=== PATIENT | female | born 1935 | race Caucasian/White ===

== ENCOUNTER 2017-04-02 13:36 | Emergency (ER) | payer BC, MEDICARE ==
[~2017-04-02] VITALS: Ht 160 cm; Wt 80.0 kg
[~2017-04-02 13:36] MED LIST: 1-ME1LIQ OR; ASPI325T; AVALIDE; BUSP15TA PO; CALTTAB PO; CART240C4 PO; CLON-352 PO; CLON0.2T PO; CLOP75; GLUC500C4 PO; GLUCTAB OR; LIPI40TA PO; LORA-392; NEXI40CA; TAB-TAB PO; TOPR50TA; [UNRECOGNIZED DRUG - OTHER] PO; [UNRECOGNIZED DRUG - OTHER] PO
[2017-04-02 13:52] VITALS: BP 178/68; PULSE 72; RESP 16; TEMP 98.9; O2SAT 97
--- NOTE | 2017-04-02 14:04 | PD ---
HPI Chief Complaint: Injury Time Seen by Provider: 14:00 Travel History International Travel<30 days: No Contact w/Intl Traveler<30days: No Traveled to known affect area: No History of Present Illness HPI 81-year-old female presents to the emergency room for evaluation of left foot pain and swelling after injury last night. Patient states she slipped on her mat and twisted her foot. She heard a pop and felt immediate pain. She did not fall but could not bear weight without extreme pain. She hobbled inside and went to bed to see if it would improve in the morning and because she did not want to drive at night. Patient did not take anything for her symptoms because her pain is not severe and her doctor recommended she only take pain medication if her pain is unbearable. She reports chronic bilateral lower extremity edema but states left seems worse than right. Patient cannot localize her pain and reports that it is deep within her foot. Worse with ambulation and range of motion. It is 2/10, constant, throbbing, aching. Denies paresthesias. PFSH Past Medical History Hx Anticoagulant Therapy: Yes (325 ASA DAILY) Autoimmune Disease: No Blood Disorders: No Heart Rhythm Problems: No Cancer: No Cardiovascular Problems: Yes (UT, STENT, HTN, CHOL) High Cholesterol: No Chemotherapy: No Chest Pain: Yes Congestive Heart Failure: No Cerebrovascular Accident: No Coronary Artery Disease: Yes (HEART STENTS) Diabetes: Yes Patient Takes Glucophage: No Diminished Hearing: No Endocrine: No Gastrointestinal Disorders: Yes GERD: Yes Glaucoma: No Genitourinary: No Headaches: No Hepatitis: No Hiatal Hernia: No Hypertension: Yes Immune Disorder: No Kidney Stones: No Musculoskeletal: Yes Neurologic: No Psychiatric: No Reproductive: No Migraines: No Myocardial Infarction: No Radiation Therapy: No Renal Failure: No Seizures: No Thyroid Disease: No Ulcer: No Past Surgical History Abdominal Surgery: Yes (CHOLECYSTECTOMY 1998) AICD: No Appendectomy: No Arteriovenous Shunt: No Body Medical Devices: CORDIS CYPHER CORONARY STENTS Cardiac Surgery: Yes (CARDIAC STENTS.. CORDIS CYPHER CORONARY STENTS 2003) Cholecystectomy: Yes Coronary Stent: Yes Ear Surgery: No Endocrine Surgery: No Eye Surgery: No Genitourinary Surgery: No Gynecologic Surgery: Yes (HYSTERECTOMY AT 29 YRS OLD) Hysterectomy: Yes Insulin Pump: No Joint Replacement: No Oral Surgery: No Pacemaker: No Thoracic Surgery: No Other Surgery: Yes (CARDIAC STENTS,CHOLECYSTECTOMY,HYSTERECTOMY,TONSILLECTOMY) Social History Alcohol Use: No Tobacco Use: No Substance Use: No Allergies-Medications (Allergen,Severity, Reaction): Coded Allergies: Zocor (Verified Allergy, Severe, ARMS SWELL, 04/02/17) Reported Meds & Prescriptions Reported Meds & Active Scripts Active Walker/Adult/Folding (Device) 1 Mis Mis 1 Ea .ROUTE DIRECTED Reported Glucosamine-Chondroitin 500-400 Mg Tab 1 Tab PO DAILY Multiple Vitamin 1 Tab 1 Tab PO DAILY Calcium 600 with Vitamin D (Calcium Carbonate-Cholecalciferol) 600-400 mg-Unit Tab 1 Tab PO DAILY Aspirin 325 Mg Tab 325 Mg PO DAILY Cranberry Urinary Comfort (Vitamins C & E) 1 Cap 1 Cap PO DAILY [place]-3 Fish Oil/Vitamin (Fish Oil-Cholecalciferol) 1,000-1,000 Mg Cap 3 Cap PO BID Esomeprazole DR 40 Mg Capdr 40 Mg PO HS Lorazepam 0.5 Mg Tab 0.5 Mg PO BID Amlodipine (Amlodipine Besylate) 5 Mg Tab 5 Mg PO BID Irbesartan-Hydrochlorothiazide 300-12.5 Mg Tab 1 Tab PO DAILY Metoprolol Tartrate 50 Mg Tab 50 Mg PO HS Atorvastatin (Atorvastatin Calcium) 20 Mg Tab 20 Mg PO EVERY OTHER DAY Metformin (Metformin HCl) 500 Mg Tab 750 Mg PO BIDPC With meals Diltiazem CD 24 HR 240 Mg Caper 240 Mg PO DAILY Buspirone (Buspirone HCl) 30 Mg Tab 30 Mg PO BID Hydrochlorothiazide 12.5 Mg Tab 12.5 Mg PO DAILY Hydralazine HCl 25 Mg Tablet 10 Mg PO TID Review of Systems Except as stated in HPI: all other systems reviewed are Neg Physical Exam Narrative GENERAL: Well-nourished, well-developed female in no acute distress. Afebrile. Ambulatory. SKIN: Focused skin assessment warm/dry. No erythema or ecchymosis. HEAD: Normocephalic. EYES: No scleral icterus. No injection or drainage. NECK: Supple, trachea midline. No JVD or lymphadenopathy. CARDIOVASCULAR: Regular rate and rhythm without murmurs, gallops, or rubs. RESPIRATORY: Breath sounds equal bilaterally. No accessory muscle use. EXTREMITY: Left foot essentially nontender to palpation. Full range of motion in all joints. Bilateral pitting edema, left worse than right. 2+ dorsalis pedis pulse on the left. Less than 2 second capillary refill distally. Data Data Last Documented VS Vital Signs Date Time Temp Pulse Resp B/P Pulse Ox O2 Delivery O2 Flow Rate FiO2 04/02/17 13:52 98.9 72 16 178/68 97 Orders Foot, Complete ([id number]) (04/02/17 ) Splint Or Brace Apply/Monitor (04/02/17 14:59) Fiberglass Short Leg Splint Ad (04/02/17 ) [facility] Medical Decision Making Medical Screen Exam Complete: Yes Emergency Medical Condition: Yes Medical Record Reviewed: Yes Differential Diagnosis Sprain, strain, contusion, fracture Narrative Course 81-year-old female presents to the emergency room for evaluation of left foot pain and increased swelling after injuring it last night. Patient states she stepped wrong and twisted her foot hearing a loud pop and feeling immediate pain. She denies falling. Denies any other injuries. States swelling seemed to worsen overnight. Physical exam reveals bilateral pitting edema, left worse than right. Left lower extremity is neurovascularly intact with 2+ dorsalis pedis pulse. Patient has full range of motion. No specific bony tenderness to palpation. X-ray shows possible navicular bone fracture. There is no ecchymosis. Patient was treated conservatively with a posterior short leg splint and told to follow-up with the sealer sander or primary care physician within one week. She was told to take Tylenol for pain and discharged with prescription for walker. Told to return for worsening symptoms. She understands and agrees to plan. Diagnosis Primary Impression: Left navicular fracture of foot Qualified Code: S92.255A - Closed nondisplaced fracture of navicular bone of left foot, initial encounter Referrals: [facility] [employer] Primary Care Physician Patient Instructions: Foot Fracture in Adults (ED), General Instructions Additional Instructions: Rest and drink plenty of fluids. Keep foot splinted and elevated. Do not bear weight. Use walker. Take Tylenol as directed, as needed for pain. Apply ice to the affected area for 20 minutes at a time, as needed for pain and swelling. Follow-up with a sealer sander. Return to the emergency room for worsening symptoms. Med/Other Pt SpecificInfo: Prescription(s) given Scripts Walker/Adult/Folding 1 Mis Mis #1 EA .ROUTE DIRECTED Ref 0 Prov:Kocisko,Bertram J. MD 04/02/17 Disposition: 01 DISCHARGE HOME Condition: Ramya Vásquez Apr 02, 2017 14:04
[2017-04-02] MEDS ORDERED: HYDR12.56 PO (14:05)
[2017-04-02] MEDS ORDERED: AMLO5TAB2 PO (14:05)
[2017-04-02] MEDS ORDERED: ESOM1CAP16 PO (14:05)
[2017-04-02] MEDS ORDERED: CRANCAP2 PO (14:05)
[2017-04-02] MEDS ORDERED: MULTTAB67 PO (14:05)
[2017-04-02] MEDS ORDERED: HYDR-3799 PO (14:05)
[2017-04-02] MEDS ORDERED: BUSP30TA PO (14:05)
[2017-04-02] MEDS ORDERED: METO50TA PO (14:05)
[2017-04-02] MEDS ORDERED: CALC1TAB87 PO (14:05)
[2017-04-02] MEDS ORDERED: OMEGCAP PO (14:05)
[2017-04-02] MEDS ORDERED: ATOR20TA15 PO (14:05)
[2017-04-02] MEDS ORDERED: LORA-373 PO (14:05)
[2017-04-02] MEDS ORDERED: DILT-64 PO (14:05)
[2017-04-02] MEDS ORDERED: IRBE300T13 PO (14:05)
[2017-04-02] MEDS ORDERED: METF500T PO (14:05)
[2017-04-02] MEDS ORDERED: GLUC500T4 PO (14:05)
[2017-04-02] MEDS ORDERED: ASPI325T PO (14:05)
--- NOTE | 2017-04-02 14:49 | RADHPO ---
EXAM DATE/TIME: 04/02/2017 14:06 [facility] COMPARISON: No previous studies available for comparison. INDICATIONS : Left dorsal foot pain & swelling post trip/twist last night. MEDICAL HISTORY : Myocardial infarction. Hypercholesterolemia. Hypertension. GERD. Diabetic. SURGICAL HISTORY : Tonsillectomy. Hysterectomy. Cholecystectomy. Cardiac stent. ENCOUNTER: Initial ACUITY: 2 days PAIN SCORE: 7/10 LOCATION: Left dorsal FINDINGS: There appears to be subtle lucency at the medial aspect of the navicular bone concerning for a subtle fracture. No other potential fracture is seen. The bones and joints appear grossly normally aligne d. There is a calcaneal spur at the plantar aponeurosis attachment site. There is mild hypertrophic change at the dorsal aspect of the mid foot. CONCLUSION: Subtle lucency at the medial aspect of the navicular bone concerning for a possible fracture. David Dong MD on April 02, 2017 at 14:38 Board Certified Radiologist. This report was verified electronically.
[2017-04-02] MEDS ORDERED: WALKER/ADULT/FO1 MIS (15:38)
== END 2017-04-02 15:55 | disposition home or self-care (01) ==
LOC: PHED 13:36
DX: S92.255A Nondisplaced fracture of navicular [scaphoid] of left foot, initial encounter for closed fracture (principal); Z79.82 Long term (current) use of aspirin; I25.2 Old myocardial infarction; Z95.5 Presence of coronary angioplasty implant and graft; I10 Essential (primary) hypertension; E11.9 Type 2 diabetes mellitus without complications
CPT/HCPCS: 29515; 73630

== ENCOUNTER 2017-05-16 21:59 | Inpatient (IN) | payer MEDICARE ==
[~2017-05-16] VITALS: Ht 160 cm; Wt 78.9 kg
[~2017-05-16 21:59] MED LIST changes: -1-ME1LIQ OR; +AMLO5TAB2 PO; -ASPI325T; +ASPI325T PO; +ATOR20TA15 PO; -AVALIDE; -BUSP15TA PO; +BUSP30TA PO; +CALC1TAB87 PO; -CALTTAB PO; -CART240C4 PO; -CLON-352 PO; -CLON0.2T PO; -CLOP75; +CRANCAP2 PO; +DILT-64 PO; +ESOM1CAP16 PO; -GLUC500C4 PO; +GLUC500T4 PO; -GLUCTAB OR; +HYDR-3799 PO; +HYDR12.56 PO; +IRBE300T13 PO; -LIPI40TA PO; +LORA-373 PO; -LORA-392; +METF500T PO; +METO50TA PO; +MULTTAB67 PO; -NEXI40CA; +OMEGCAP PO; -TAB-TAB PO; -TOPR50TA; +WALKER/ADULT/FO1 MIS; -[UNRECOGNIZED DRUG - OTHER] PO; -[UNRECOGNIZED DRUG - OTHER] PO
[2017-05-16 22:02] VITALS: BP 201/83; PULSE 58; RESP 18; TEMP 101.5; O2SAT 90
[2017-05-16] MEDS ORDERED: CLON0.1T PO (22:20)
[2017-05-16] MEDS ORDERED: RESP: ALBUTEROL 2.5 MG/3 ML NEB (SCH) INH ONE (22:45)
[2017-05-16] MEDS ORDERED: SODIUM CHLORIDE 0.9% FLUSH 10 ML FLUSH IVF PRN (22:45)
[2017-05-16 22:48] VITALS: RESP 20; O2SAT 95
[2017-05-16 23:14] LABS: AUTOMATED NEUTROPHIL # 8.2 TH/MM3 (1.8-7.7); BASOPHIL # 0.1 TH/MM3 (0-0.2); BASOPHIL % 1.3 % (0.0-2.0); EOSINOPHIL # 0.1 TH/MM3 (0-0.4); EOSINOPHIL % 0.6 % (0.0-4.0); HEMATOCRIT 31.7 % (35.0-46.0); LYMPH % 8.7 % (9.0-44.0); LYMPHOCYTE # 0.9 TH/MM3 (1.0-4.8); MEAN CELL VOLUME 85.3 FL (80.0-100.0); MEAN CORPUSCULAR HGB CONC 32.8 % (32.0-36.0); MONO % 5.5 % (0.0-8.0); NEUT % 83.9 % (16.0-70.0); PLATELET COUNT 191 TH/MM3 (150-450); RED BLOOD COUNT 3.71 MIL/MM3 (4.00-5.30); RED CELL DISTRIBUTION WIDTH 16.2 % (11.6-17.2); WHITE BLOOD COUNT 9.7 TH/MM3 (4.0-11.0)
--- NOTE | 2017-05-16 23:14 | PD ---
HPI Chief Complaint: Respiratory Symptoms Time Seen by Provider: 22:15 Travel History International Travel<30 days: No Contact w/Intl Traveler<30days: No Traveled to known affect area: No History of Present Illness HPI 81 yo F with 1 days of sob, productive cough and subjective fever. + Bilateral shoulder pain. Chest heaviness reported. No n/v/d. No sick contacts. + PNA shot this year. + [place] and exertional CP. + Hx CAD, DM, HTN, HLD and family hx CAD. Location cardiopulmonary. Severity moderate. PFSH Past Medical History Hx Anticoagulant Therapy: Yes (325 ASA DAILY) Autoimmune Disease: No Blood Disorders: No Heart Rhythm Problems: No Cancer: No Cardiovascular Problems: Yes (AR, STENT, HTN, CHOL) High Cholesterol: No Chemotherapy: No Chest Pain: Yes Congestive Heart Failure: No Cerebrovascular Accident: No Coronary Artery Disease: Yes (HEART STENTS) Diabetes: Yes Patient Takes Glucophage: Yes Diminished Hearing: No Endocrine: No Gastrointestinal Disorders: Yes GERD: Yes Glaucoma: No Genitourinary: No Headaches: No Hepatitis: No Hiatal Hernia: No Hypertension: Yes Immune Disorder: No Kidney Stones: No Musculoskeletal: Yes Neurologic: No Psychiatric: No Reproductive: No Migraines: No Myocardial Infarction: No Radiation Therapy: No Renal Failure: No Seizures: No Thyroid Disease: No Ulcer: No ?: Not Past Surgical History Abdominal Surgery: Yes (CHOLECYSTECTOMY 1998) AICD: No Appendectomy: No Arteriovenous Shunt: No Body Medical Devices: CORDIS CYPHER CORONARY STENTS Cardiac Surgery: Yes (CARDIAC STENTS.. CORDIS CYPHER CORONARY STENTS 2003) Cholecystectomy: Yes Coronary Stent: Yes Ear Surgery: No Endocrine Surgery: No Eye Surgery: No Genitourinary Surgery: No Gynecologic Surgery: Yes (HYSTERECTOMY AT 29 YRS OLD) Hysterectomy: Yes Insulin Pump: No Joint Replacement: No Oral Surgery: No Pacemaker: No Thoracic Surgery: No Other Surgery: Yes (CARDIAC STENTS,CHOLECYSTECTOMY,HYSTERECTOMY,TONSILLECTOMY) Social History Alcohol Use: No Tobacco Use: No (never) Substance Use: No Allergies-Medications (Allergen,Severity, Reaction): Coded Allergies: Zocor (Verified Allergy, Severe, ARMS SWELL, 05/16/17) Reported Meds & Prescriptions Reported Meds & Active Scripts Active Reported Clonidine (Clonidine HCl) 0.1 Mg Tab 0.1 Mg PO BID Glucosamine-Chondroitin 500-400 Mg Tab 1 Tab PO DAILY Multiple Vitamin 1 Tab 1 Tab PO DAILY Calcium 600 with Vitamin D (Calcium Carbonate-Cholecalciferol) 600-400 mg-Unit Tab 1 Tab PO DAILY Aspirin 325 Mg Tab 325 Mg PO DAILY Cranberry Urinary Comfort (Vitamins C & E) 1 Cap 1 Cap PO DAILY [place]-3 Fish Oil/Vitamin (Fish Oil-Cholecalciferol) 1,000-1,000 Mg Cap 3 Cap PO BID Lorazepam 0.5 Mg Tab 0.5 Mg PO BID Amlodipine (Amlodipine Besylate) 5 Mg Tab 5 Mg PO BID Irbesartan-Hydrochlorothiazide 300-12.5 Mg Tab 1 Tab PO DAILY Metoprolol Tartrate 50 Mg Tab 50 Mg PO HS Atorvastatin (Atorvastatin Calcium) 20 Mg Tab 20 Mg PO EVERY OTHER DAY Metformin (Metformin HCl) 500 Mg Tab 750 Mg PO BIDPC With meals Diltiazem CD 24 HR 240 Mg Caper 240 Mg PO DAILY Buspirone (Buspirone HCl) 30 Mg Tab 30 Mg PO BID Hydrochlorothiazide 12.5 Mg Tab 12.5 Mg PO DAILY Hydralazine HCl 25 Mg Tablet 10 Mg PO TID Review of Systems Except as stated in HPI: all other systems reviewed are Neg Physical Exam Narrative GENERAL: 81 yo F, WNWD, speaking sentences SKIN: Warm and dry. HEAD: Atraumatic. Normocephalic. EYES: Pupils equal and round. No scleral icterus. No injection or drainage. ENT: No nasal bleeding or discharge. Mucous membranes pink and moist. NECK: Trachea midline. No JVD. CARDIOVASCULAR: Regular rate and rhythm. RESPIRATORY: Course breath sound L base. Speaking full sentences. GASTROINTESTINAL: Abdomen soft, non-tender, nondistended. Hepatic and splenic margins not palpable. MUSCULOSKELETAL: Extremities without clubbing, cyanosis, or edema. No obvious deformities. NEUROLOGICAL: Awake and alert. No obvious cranial nerve deficits. Motor grossly within normal limits. Five out of 5 muscle strength in the arms and legs. Normal speech. PSYCHIATRIC: Appropriate mood and affect; insight and judgment normal. Data Data Last Documented VS Vital Signs Date Time Temp Pulse Resp B/P Pulse Ox O2 Delivery O2 Flow Rate FiO2 05/17/17 00:00 64 18 187/78 95 Nasal Cannula 3 05/16/17 22:02 101.5 VS reviewed Orders Complete Blood Count With Diff (05/16/17 22:34) Basic Metabolic Panel (Bmp) (05/16/17 22:34) Ckmb (Isoenzyme) Profile (05/16/17 22:34) Troponin I (05/16/17 22:34) Iv Access Insert/Monitor (05/16/17 22:34) Electrocardiogram (05/16/17 22:34) Ecg Monitoring (05/16/17 22:34) Oximetry (05/16/17 22:34) Oxygen Administration (05/16/17 22:34) Chest, Single Ap (05/16/17 22:34) Sodium Chloride 0.9% Flush (Ns Flush) (05/16/17 22:45) Albuterol Neb (Albuterol Neb) (05/16/17 22:45) Blood Culture (05/16/17 23:15) Acetaminophen (Tylenol) (05/16/17 23:15) B-Type Natriuretic Peptide (05/16/17 23:44) Ceftriaxone Inj (Rocephin Inj) (05/16/17 23:45) Azithromycin Inj (Zithromax Inj) (05/16/17 23:45) Heparin Infusion IZZY.Q1H (05/16/17 23:48) Heparin Inj (Heparin Inj) (05/17/17 00:00) Heparin Inj (Heparin Inj) (05/17/17 06:00) Heparin Inj (Heparin Inj) (05/17/17 06:00) Heparin-D5w Inj (Heparin-D5w Inj) (05/17/17 00:00) Cbc No Diff, Includes Plts (05/19/17 06:00) Act Partial Throm Time (Ptt) (05/17/17 06:48) Occult Blood (Hemoccult) Stool (05/16/17 23:48) Aspirin (Aspirin) (05/17/17 00:00) Nitroglycerin 2% Oint (Nitroglycerin 2% (05/17/17 00:00) Admit Order (Ed Use Only) (05/17/17 00:18) Labs Laboratory Tests Test 05/16/17 22:40 Sodium Level 136 MEQ/L Potassium Level 3.9 MEQ/L Chloride Level 101 MEQ/L Carbon Dioxide Level 23.4 MEQ/L Anion Gap 12 MEQ/L Blood Urea Nitrogen 23 MG/DL Creatinine 1.37 MG/DL Estimat Glomerular Filtration 37 ML/MIN Rate Random Glucose 153 MG/DL Calcium Level 9.8 MG/DL Total Creatine Kinase 97 U/L Troponin I 0.11 NG/ML White Blood Count 9.7 TH/MM3 Red Blood Count 3.71 MIL/MM3 Hemoglobin 10.4 GM/DL Hematocrit 31.7 % Mean Corpuscular Volume 85.3 FL Mean Corpuscular Hemoglobin 28.0 PG Mean Corpuscular Hemoglobin 32.8 % Concent Red Cell Distribution Width 16.2 % Platelet Count 191 TH/MM3 Mean Platelet Volume 8.1 FL Neutrophils (%) (Auto) 83.9 % Lymphocytes (%) (Auto) 8.7 % Monocytes (%) (Auto) 5.5 % Eosinophils (%) (Auto) 0.6 % Basophils (%) (Auto) 1.3 % Neutrophils # (Auto) 8.2 TH/MM3 Lymphocytes # (Auto) 0.9 TH/MM3 Monocytes # (Auto) 0.5 TH/MM3 Eosinophils # (Auto) 0.1 TH/MM3 Basophils # (Auto) 0.1 TH/MM3 CBC Comment AUTO DIFF MDM Medical Decision Making Medical Screen Exam Complete: Yes Emergency Medical Condition: Yes Medical Record Reviewed: Yes Differential Diagnosis NSTEMI, unstable angina, coronary vasospasm, PE, PTX, aortic dissection, pericarditis, myocarditis, endocarditis, PNA, esophageal disease, aneurysm, musculoskeletal etiologies, anxiety, cocaine/sympathomimetic abuse Narrative Course EKG shows sinus rhythm with a rate of 85, T-wave inversions are present inV1-V6 , I amd aVL Last 24 hours Impressions Chest X-Ray 05/16/174 Signed Impressions: Service Date/Time: Tuesday, May 16, 2017 23:22 - CONCLUSION: Consolidative opacity in the left perihilar region the left lung base most characteristic of pneumonia. Bandar Pruitt MD CBC & BMP Diagram 05/16/17 22:40 Troponin 0.11 The patient has received Rocephin and azithromycin. Case discussed with Dr. Henriquez. Heparin started. Patient will take metoprolol as she does every night. Aspirin ordered. Case discussed with Dr. Person for [facility]. Critical Care Narrative Aggregate critical care time was 35 minutes. Time to perform other separately billable procedures was not included in the critical care time. My time did not include minutes spent treating any other patients simultaneously or on activities that did not directly contribute to the patient's treatment. The services I provided to this patient were to treat and/or prevent clinically significant deterioration that could result in: Cardiac injury, multiorgan injury, cardiopulmonary arrest I provided critical care services requiring my management, as noted below: Chart data review, documentation time, medication orders and management, vital sign assessments/reviewing monitor data, ordering and reviewing lab tests, ordering and interpreting/reviewing x-rays and diagnostic studies, care of the patient and discussion of the patient with the admitting physicians. Sepsis Criteria SIRS Criteria (2 or more): Temp > 100.9 or < 96.8 Diagnosis Primary Impression: NSTEMI (non-ST elevated myocardial infarction) Additional Impression: PNA (pneumonia) Qualified Code: J18.9 - Pneumonia of left lung due to infectious organism, unspecified part of lung Admitting Information Admitting Physician Requests: Ronaldo Pemberton MD May 16, 2017 23:14
[2017-05-16] MEDS ORDERED: ACETAMINOPHEN 325 MG TAB PO ONE (23:15)
[2017-05-16 23:27] LABS: HEMO FLAGS AUTO DIFF
[2017-05-16 23:33] LABS: BICARBONATE 23.4 MEQ/L (21.0-32.0); POTASSIUM 3.9 MEQ/L (3.5-5.1)
[2017-05-16] MEDS ORDERED: AZITHROMYCIN INJ 500 MG in SODIUM CHLOR 0.9% 250 ML INJ 250 ML IV ONE (23:45)
[2017-05-16] MEDS ORDERED: cefTRIAXone INJ 1,000 MG in SODIUM CHLORIDE 0.9% INJ 100 ML IV ONE (23:45)
[2017-05-17] VITALS (30 sets, daily range): BP systolic 91–187; BP diastolic 40–78; PULSE 57–97; RESP 18–35; TEMP 97.6–99.6; O2SAT 92–100
[2017-05-17] MEDS ORDERED: ASPIRIN 325 MG TAB PO ONE
[2017-05-17] MEDS ORDERED: HEPARIN-D5W 25,000 U/250 ML 250 ML IV SCH
[2017-05-17] MEDS ORDERED: HEPARIN SODIUM - IV 10,000 UNITS/10 ML VIAL IV ONE
[2017-05-17] MEDS ORDERED: NITROGLYCERIN 2% OINT 1 GM PACKET TOP ONE
--- NOTE | 2017-05-17 00:02 | RADRPT ---
EXAM DATE/TIME: 05/16/2017 23:22 [facility] COMPARISON: No previous studies available for comparison. INDICATIONS : Short of breath. MEDICAL HISTORY : Diabetes mellitus type II. Myocardial infarction. Hypercholesterolemia. Hypertension. GERD. SURGICAL HISTORY : Cardiac stent. ENCOUNTER: Initial ACUITY: 2 days PAIN SCORE: 0/10 LOCATION: Bilateral chest FINDINGS: A single AP erect portable view of the chest was obtained and demonstrates consolidation in the left perihilar region and left lung base. The heart size is within normal limits. There is no effusion. Th e bony thorax is intact. There are multiple overlying electrocardiogram leads. CONCLUSION: Consolidative opacity in the left perihilar region the left lung base most characteri stic of pneumonia. Bandar Pruitt MD on May 16, 2017 at 23:59 Board Certified Radiologist. This report was verified electronically.
[2017-05-17] MEDS ORDERED: SODIUM CHLORIDE 0.9% FLUSH 10 ML FLUSH IV FLUSH PRN (00:30)
[2017-05-17] MEDS ORDERED: NALOXONE HCL 0.4 MG/ML AMP IV PRN (00:30)
[2017-05-17 01:20] LABS: APTT (PATIENT) 30.9 SEC (24.3-30.1); PROTHROMBIN TIME - PATIENT 11.4 SEC (9.8-11.6)
[2017-05-17 01:31] LABS: PLATELET ESTIMATE SMEAR NORMAL (NORMAL); PLATELET MORPHOLOGY NORMAL (NORMAL); SCAN/DIFF AUTO DIFF CONFIRMED
[2017-05-17] MEDS ORDERED: CHLORHEXIDINE GLUCONATE 2 % 1 PACK (2 CLOTHS)(extra cloths) TOPICAL PRN (02:45)
--- NOTE | 2017-05-17 03:03 | HHI.HP ---
[facility] Manas Borja MD Admission Diagnosis NSTEMI, PNA Diagnoses: Chief Complaint: cough, chest tightneess Travel History International Travel<30 Days: No Contact w/Intl Traveler <30 Da: No Traveled to Known Affected Are: No History of Present Illness Written by CURTIS Bolivar acting as scribe for [jose m] on 05/17/17 at 02: 54. 81 y/o female with a history of HTN, afib, DM, PA, and CKD stage 3 presented to the ED with complaints of a cough, sob and chest tightness for the last week. She states she has had a productive cough with white sputum production with increasing sob. She denies any fevers at home and developed chills tonight. She states when she coughs she has chest tightness with no radiation. Denies any nausea, vomiting, diarrhea, dysuria, bloody stools or head aches. Geospatial Image Analyst: Dr. Roa Tray Server: Dr. Watson Review of Systems Except as stated in HPI: all other systems reviewed are Neg Past Family Social History Past Medical History HTN DM PA CKD stage 3 Past Surgical History Heart stents Cholecystectomy Hysterectomy Reported Medications Reported Meds & Active Scripts Active Reported Clonidine (Clonidine HCl) 0.1 Mg Tab 0.1 Mg PO BID Glucosamine-Chondroitin 500-400 Mg Tab 1 Tab PO DAILY Multiple Vitamin 1 Tab 1 Tab PO DAILY Calcium 600 with Vitamin D (Calcium Carbonate-Cholecalciferol) 600-400 mg-Unit Tab 1 Tab PO DAILY Aspirin 325 Mg Tab 325 Mg PO DAILY Cranberry Urinary Comfort (Vitamins C & E) 1 Cap 1 Cap PO DAILY [place]-3 Fish Oil/Vitamin (Fish Oil-Cholecalciferol) 1,000-1,000 Mg Cap 3 Cap PO BID Lorazepam 0.5 Mg Tab 0.5 Mg PO BID Amlodipine (Amlodipine Besylate) 5 Mg Tab 5 Mg PO BID Irbesartan-Hydrochlorothiazide 300-12.5 Mg Tab 1 Tab PO DAILY Metoprolol Tartrate 50 Mg Tab 50 Mg PO HS Atorvastatin (Atorvastatin Calcium) 20 Mg Tab 20 Mg PO EVERY OTHER DAY Metformin (Metformin HCl) 500 Mg Tab 750 Mg PO BIDPC With meals Diltiazem CD 24 HR 240 Mg Caper 240 Mg PO DAILY Buspirone (Buspirone HCl) 30 Mg Tab 30 Mg PO BID Hydrochlorothiazide 12.5 Mg Tab 12.5 Mg PO DAILY Hydralazine HCl 25 Mg Tablet 10 Mg PO TID Allergies: Coded Allergies: Zocor (Verified Allergy, Severe, ARMS SWELL, 05/16/17) Active Ordered Medications Current Medications Medications (Trade) Dose Ordered Sig/Renaldo Route Start Time Stop Time Status Last Admin (Heparin Inj) 5,000 units UNSCH PRN IV 05/17/17 06:00 Heparin Sodium (Porcine) 2500 units 2,500 units UNSCH PRN IV 05/17/17 06:00 (Heparin-D5W Inj) 250 ml @ 0 mls/hr TITRATE IV 05/17/17 00:00 05/17/17 00:46 (NS Flush) 2 ml UNSCH PRN IV FLUSH 05/17/17 00:30 (NS Flush) 2 ml BID IV FLUSH 05/17/17 09:00 Naloxone HCl 0.4 mg 0.4 mg UNSCH PRN IV 05/17/17 00:30 (Levaquin 750 Mg Premix Inj) 150 ml @ 100 mls/hr Q24H IV 05/17/17 09:00 Miscellaneous Information Patient in critical care unit? Ass... [id number] .XX 05/17/17 02:45 (Chlorhexidine 2% Cloth) 3 pack DAILY@04 TOPICAL 05/17/17 04:00 05/21/17 04:01 (Chlorhexidine 2% Cloth) 3 pack UNSCH PRN TOPICAL 05/17/17 02:45 05/22/17 02:34 Family History Mom: Lung cancer Dad: PA at age 43 Social History Tobacco use: Denies Alcohol use: Denies Illicit drug use: Denies Patient lives alone Physical Exam Vital Signs Vital Signs Date Time Temp Pulse Resp B/P Pulse Ox O2 Delivery O2 Flow Rate FiO2 05/17/17 02:41 99.1 57 22 129/59 94 05/17/17 00:00 64 18 187/78 95 Nasal Cannula 3 05/16/17 22:48 20 95 Nasal Cannula 3 05/16/17 22:48 95 Nasal Cannula 3 05/16/17 22:02 101.5 58 18 201/83 90 Room Air Physical Exam GENERAL: This is a well-nourished, well-developed patient, in no apparent distress. SKIN: No rashes, ecchymoses or lesions. Cool and dry. HEAD: Atraumatic. Normocephalic. No temporal or scalp tenderness. EYES: Pupils equal round and reactive. ENT: Nose without bleeding, purulent drainage or septal hematoma. Airway patent. NECK: Trachea midline. No JVD or lymphadenopathy. CARDIOVASCULAR: Regular rate and rhythm without murmurs, gallops, or rubs. RESPIRATORY: Clear to auscultation. Breath sounds equal bilaterally. No wheezes , rales, or rhonchi. Productive cough GASTROINTESTINAL: Abdomen soft, non-tender, nondistended. No hepato-splenomegaly , or palpable masses. No guarding. MUSCULOSKELETAL: Extremities without edema. Motor and sensory grossly within normal limits. Five out of 5 muscle strength in all muscle groups. Normal speech. Laboratory Laboratory Tests Test 05/16/17 22:40 Sodium Level 136 Potassium Level 3.9 Chloride Level 101 Carbon Dioxide Level 23.4 Anion Gap 12 Blood Urea Nitrogen 23 Creatinine 1.37 Estimat Glomerular Filtration 37 Rate Random Glucose 153 Calcium Level 9.8 Total Creatine Kinase 97 Troponin I 0.11 White Blood Count 9.7 Red Blood Count 3.71 Hemoglobin 10.4 Hematocrit 31.7 Mean Corpuscular Volume 85.3 Mean Corpuscular Hemoglobin 28.0 Mean Corpuscular Hemoglobin 32.8 Concent Red Cell Distribution Width 16.2 Platelet Count 191 Mean Platelet Volume 8.1 Neutrophils (%) (Auto) 83.9 Lymphocytes (%) (Auto) 8.7 Monocytes (%) (Auto) 5.5 Eosinophils (%) (Auto) 0.6 Basophils (%) (Auto) 1.3 Neutrophils # (Auto) 8.2 Lymphocytes # (Auto) 0.9 Monocytes # (Auto) 0.5 Eosinophils # (Auto) 0.1 Basophils # (Auto) 0.1 CBC Comment AUTO DIFF Differential Comment AUTO DIFF CONFIRMED Platelet Estimate NORMAL Platelet Morphology Comment NORMAL Prothrombin Time 11.4 Prothromb Time International 1.0 Ratio Activated Partial 30.9 Thromboplast Time B-Type Natriuretic Peptide 181 Date/Time Procedure Status Source Growth 05/16/17 23:30 Aerobic Blood Culture Received Blood Peripheral Pending 05/16/17 23:30 Anaerobic Blood Culture Received Blood Peripheral Pending Result Diagram: 05/16/17223905/16/172239 Imaging Last Impressions Chest X-Ray 05/16/172233 Signed Impressions: Service Date/Time: Tuesday, May 16, 2017 23:22 - CONCLUSION: Consolidative opacity in the left perihilar region the left lung base most characteristic of pneumonia. Bandar Pruitt MD Assessment and Plan Problem List: (1) PNA (pneumonia) ICD Code: J18.9 Status: Acute Assessment and Plan 81 y/o female with a history of HTN, DM, PA, and CKD stage 3 presented to the ED with complaints of a cough, sob and chest tightness for the last week. PNA, acute, wbc 9.7-->12.5 Chest x ray reviewed and shows Consolidative opacity in the left perihilar region the left lung base most characteristic of pneumonia. -Antibiotics: Levaquin IV ordered -CBC in AM Elevated troponin, patient with associated chest tightness when coughing, r/o ACS and CHF Troponin .11, EKG reviewed shows LVH with strain, no ST depression or elevation noted BNP 181 -Serial troponin and EKGs -Heparin Drip per cardiology- whom ER MD discussed with -Consult cardiology, patient known to Dr. Roa -2 d echo ordered HTN, chronic -Resume home medications DM, chronic -Accu checks -Resume home medications DVT prophylaxis: Heparin This note was transcribed by margarita [Honey Villarreal]. I, Dr. Seema Person personally performed the history, physical exam, and medical decision making; and confirmed the accuracy of the information in the transcribed note. Authenticated by Dr. Seema Person on 05/17/17 at 02:54. Discussed Condition With Patient, patient's son and ED physician Physician Certification 2 Midnight Certification Type: Admission for Inpatient Services Order for Inpatient Services The services are ordered in accordance with Medicare regulations or non- Medicare payer requirements, as applicable. In the case of services not specified as inpatient-only, they are appropriately provided as inpatient services in accordance with the 2-midnight benchmark. Estimated LOS (days): 2 days is the estimated time the patient will need to remain in the hospital, assuming treatment plan goals are met and no additional complications. Post-Hospital Plan: Home Problem Qualifiers (1) PNA (pneumonia): Qualified Code: J18.9 - Pneumonia of left lung due to infectious organism, unspecified part of lung Honey Villarreal May 17, 2017 03:03 Seema Person MD May 17, 2017 08:01
[2017-05-17] MEDS: CHLORHEXIDINE GLUCONATE 2 % 1 PACK (2 CLOTHS)(taper/protocol) TOPICAL SCH (04:00)
[2017-05-17] MEDS ORDERED: SODIUM BICARBONATE 8.4% INJ 50 MEQ/50 ML SYR IV ONE (05:00)
[2017-05-17 05:04] LABS: AUTOMATED NEUTROPHIL # 9.6 TH/MM3 (1.8-7.7); BASOPHIL # 0.1 TH/MM3 (0-0.2); BASOPHIL % 0.6 % (0.0-2.0); EOSINOPHIL % 0.2 % (0.0-4.0); HEMO FLAGS DIFF FINAL; LYMPH % 16.1 % (9.0-44.0); MEAN CELL VOLUME 83.9 FL (80.0-100.0); MEAN CORPUSCULAR HEMOGLOBIN 28.1 PG (27.0-34.0); MEAN CORPUSCULAR HGB CONC 33.5 % (32.0-36.0); MONO % 6.1 % (0.0-8.0); PLATELET COUNT 173 TH/MM3 (150-450); RED BLOOD COUNT 3.22 MIL/MM3 (4.00-5.30); RED CELL DISTRIBUTION WIDTH 15.7 % (11.6-17.2); WHITE BLOOD COUNT 12.5 TH/MM3 (4.0-11.0)
[2017-05-17] MEDS ORDERED: PILL SPLITTER OTHER PRN (05:30)
[2017-05-17 05:33] LABS: BICARBONATE 24.6 MEQ/L (21.0-32.0); POTASSIUM 3.7 MEQ/L (3.5-5.1)
[2017-05-17] MEDS ORDERED: HEPARIN SODIUM - IV 10,000 UNITS/10 ML VIAL IV PRN ×2 (06:00)
[2017-05-17] MEDS: busPIRone HCL 10 MG TAB PO SCH ×2 (07:46→22:13)
[2017-05-17] MEDS: amLODIPine BESYLATE 5 MG TAB PO SCH (07:46)
[2017-05-17] MEDS: SODIUM CHLORIDE 0.9% FLUSH 10 ML FLUSH IV FLUSH SCH ×2 (07:46→21:00)
[2017-05-17] MEDS: cloNIDine HCL 0.1 MG TAB PO SCH ×2 (07:47→21:00)
[2017-05-17] MEDS: hydrALAZINE HCL 25 MG TAB PO SCH ×3 (07:47→16:32)
[2017-05-17] MEDS: LOSARTAN 50 MG TAB PO SCH (07:47)
[2017-05-17] MEDS: HYDROCHLOROTHIAZIDE 25 MG TAB PO SCH (07:48)
[2017-05-17] MEDS: metFORMIN HCL 500 MG TAB PO SCH ×2 (07:49→16:32)
[2017-05-17] MEDS ORDERED: ATORVASTATIN 20 MG TAB PO SCH (09:00)
[2017-05-17] MEDS ORDERED: IRBESARTAN HYDROCHLOROTHIAZIDE PO SCH (09:00)
[2017-05-17] MEDS ORDERED: LEVOFLOXACIN 750 MG PREMIX INJ 150 ML IV SCH (09:00)
[2017-05-17] MEDS ORDERED: ASPIRIN 325 MG TAB PO SCH (09:00)
[2017-05-17] MEDS ORDERED: DILTIAZEM-CD 240 MG CAP ER PO SCH (09:00)
[2017-05-17] MEDS ORDERED: NITROGLYCERIN 0.4 MG SL 25 TABS/BTL SL PRN (09:15)
[2017-05-17] MEDS: ALPRAZolam 0.25 MG TAB PO PRN ×2 (09:27→16:43)
[2017-05-17] MEDS: BENZONATATE 100 MG CAP PO PRN ×2 (09:27→16:43)
[2017-05-17 09:58] LABS: APTT (PATIENT) 41.1 SEC (24.3-30.1)
[2017-05-17] MEDS ORDERED: TICAGRELOR 90 MG TAB PO ONE ×2 (14:30→19:35)
--- NOTE | 2017-05-17 15:02 | EKG ---
Date Performed: 05/16/2017 Time Performed: 23:15:11 PTAGE: 81 years EKG: Sinus rhythm WITH SHORT NC INTERVAL POSSIBLE RIGHT VENTRICULAR CONDUCTION DELAY LEFT VENTRICULAR HYPERTROPHY AND ST-T CHANGE INFERIOR MYOCARDIAL INFARCTION ABNORMAL ECG PREVIOUS TRACING : 04/02/2006 18.57 Since previous tracing, no significant change noted DOCTOR: Dora Morales Interpretating Date/Time 05/17/2017 15:01:49
--- NOTE | 2017-05-17 15:02 | EKG ---
Date Performed: 05/17/2017 Time Performed: 06:00:28 PTAGE: 81 years EKG: Possible ectopic atrial rhythm. Left axis deviation RBBB with left anterior fascicular bloc k Inferior infarct - age undetermined QRS changes V3/V4 may be due to LVH but cannot rule out anterio r infarct Possible left ventricular hypertrophy Lateral ST changes are probably due to ventricular hy pertrophy Abnormal ECG Since PREVIOUS TRACING , no significant change noted PREVIOUS TRACIN05/16/2017 23.15 DOCTOR: Dora Morales Interpretating Date/Time 05/17/2017 15:02:11
--- NOTE | 2017-05-17 15:03 | EKG ---
Date Performed: 05/17/2017 Time Performed: 09:47:55 PTAGE: 81 years EKG: Sinus rhythm MARKED LEFT AXIS DEVIATION INTRAVENTRICULAR CONDUCTION DELAY LATERAL MYOCARDIAL INFARCTION , PROBABL Y OLD ABNORMAL ECG PREVIOUS TRACING : 05/17/2017 06.00 Since previous tracing, no significant change noted DOCTOR: Dora Morales Interpretating Date/Time 05/17/2017 15:02:31
--- NOTE | 2017-05-17 16:24 | MB ---
cc: MG DALY DATE OF CONSULTATION 05/17/17 HISTORY OF PRESENT ILLNESS Ms. Vega is a 81-year-old white female, a patient of Dr. Roa with history of hypertension, atrial fibrillation, coronary artery disease, myocardial infarction, coronary stenting and chronic kidney disease. She presented with shortness of breath, cough and chest tightness for 1 week duration. She had cough productive of white sputum. She also has had chills. She was diagnosed with pneumonia. PAST MEDICAL HISTORY Positive for hypertension, myocardial function, diabetes mellitus, chronic kidney disease stage III, coronary stenting, hysterectomy, cholecystectomy. Stress test within the last year in Dr. Roa's office which was reportedly unremarkable MEDICATIONS Include: 1. Hydralazine/hydrochlorothiazide. 2. Buspirone. 3. Diltiazem. 4. Metformin. 5. Atorvastatin. 6. Metoprolol. 7. Irbesartan-hydrochlorothiazide. 8. Amlodipine. 9. Lorazepam. 11. Fish oil. 12. Cranberry. 13. Aspirin. 14. Calcium. 15. Multivitamin. 16. Glucosamine. 17. Chondroitin. 18. Clonidine. ALLERGIES ZOCOR. SOCIAL HISTORY The patient does not smoke. She does not drink alcohol. FAMILY HISTORY Positive for heart disease in her father. REVIEW OF SYSTEMS The review of systems is otherwise negative. PHYSICAL EXAMINATION VITAL SIGNS: Blood pressure 134/62, pulse 60 and regular. HEENT: Negative. 2+ carotid upstrokes. No bruits. LUNGS: Clear. HEART: Regular with no murmur, gallop or rub. ABDOMEN: Soft. No bruits. EXTREMITIES: Without edema. 1 to 2+ distal pulses. NEUROLOGIC: Grossly nonfocal. CARDIOLOGY STUDIES EKG was reviewed and showed normal sinus rhythm, left axis, left anterior fascicular block, left ventricular hypertrophy, mild interventricular conduction delay and nonspecific ST-T changes. LABORATORY DATA Hemoglobin 9.1, potassium 3.7, creatinine 1.35. Troponin 0.11, 0.47 and 0.60. BNP 181. DIAGNOSIS 1. [id number] myocardial infarction. 2. Pneumonia. 3. Coronary artery disease, history of coronary stenting. 4. Chronic kidney disease. 5. Hypertension. 6. Diabetes mellitus. PHYSICIAN Ms. Vega will be monitored on telemetry. She can be transferred out of ICU to the [facility]. We will continue therapy with metoprolol and calcium channel faustino. We will add Imdur. She will be started on Brilinta and her aspirin will be decreased to 81 milligrams a day. We will increase her atorvastatin dose. I will follow her for cardiology during her hospitalization. If she remains stable she will be discharged home and will follow up with Dr. Roa, her primary tanning drum operator, in his office after discharge. If she has continued angina despite medical therapy, we may proceed with cardiac catheterization. In the meantime, we will continue therapy for pneumonia. We will closely monitor her renal function. Mg Daly MD OQ/EO /2:17 PM /4:06 PM MTDD
[2017-05-17 16:40] LABS: APTT (PATIENT) 38.7 SEC (24.3-30.1)
[2017-05-17] MEDS ORDERED: ATROPINE SULFATE 1 MG/ML VIAL ONE (17:05)
[2017-05-17] MEDS ORDERED: ATROPINE SULFATE 1 MG/10 ML SYRINGE ONE (17:08)
[2017-05-17] MEDS ORDERED: DOPamine INJ PREMIX 500 ML ONE (17:11)
[2017-05-17] MEDS ORDERED: NITROGLYCERIN-D5W 50 MG/250 ML 250 ML ONE (17:14)
[2017-05-17] MEDS ORDERED: ETOMIDATE 20 MG/10 ML VIAL ONE (17:16)
[2017-05-17] MEDS ORDERED: ROCURONIUM INJ 50 MG/5 ML VIAL ONE (17:16)
[2017-05-17] MEDS ORDERED: SUCCINYLCHOLINE CHLORIDE 200 MG/10 ML VIAL ONE (17:16)
[2017-05-17] MEDS ORDERED: PROPOFOL 1000 MG/100 ML INJ 100 ML ONE (17:27)
--- NOTE | 2017-05-17 17:44 | PD.PROCEDR ---
Procedure Note Procedure After the risks and benefits were discussed the following procedure was performed: INTUBATION: The patient was put in optimal position for the procedure. Rapid sequence intubation was initiated by me using 20 milligrams of etomidate IV and 50 milligrams of Rocuronium IV. GlideScope #3 blade, Grade 1 view, single attempt. (GlideScope used as Mac blade was not working and not due to anticipated difficulty). The patient was intubated with a 8.0 cuffed endotracheal tube. Tube placement was confirmed by visualization of the tube and balloon passing through the cords, capnometry and subsequent chest x-ray. Breath sounds were equal and well aerated bilaterally postintubation. No breath sounds over stomach. Patient tolerated procedure well. Rudolph Hernandez MD May 17, 2017 17:44
[2017-05-17] MEDS ORDERED: HEPARIN-NS/PF INJ 500 ML ONE (17:51)
[2017-05-17] MEDS ORDERED: FUROSEMIDE 40 MG/4 ML VIAL ONE ×2 (18:03→19:26)
--- NOTE | 2017-05-17 18:06 | RADRPT ---
EXAM DATE/TIME: 05/17/2017 17:35 [facility] COMPARISON: CHEST SINGLE AP, May 16, 2017, 23:22. INDICATIONS : Post intubation. MEDICAL HISTORY : Diabetes mellitus type II. Myocardial infarction. Hypercholesterolemia.Hypertension. GERD. SURGICAL HISTORY : Cardiac stent. ENCOUNTER: Subsequent ACUITY: 1 day PAIN SCORE: Non-responsive. LOCATION: Bilateral chest FINDINGS: ET tube tip is well above the josiah. There is an increasing area of consolidation in the central le ft lung and 2 new areas of patchy consolidation in the central right lung. The heart is normal size. Both hemidiaphragms well delineated. CONCLUSION: 1. ET tube in good position. 2. Increasing left infiltrates and new right lung infiltrates. Arik Cosby MD on May 17, 2017 at 18:03 Board Certified Radiologist. This report was verified electronically.
[2017-05-17 18:43] LABS: BLOOD GAS BASE EXCESS -6.1 mmol/L (-2-2); BLOOD GAS CARBOXYHEMOGLOBIN 1.5 % (0-4); BLOOD GAS HCO3 19 mmol/L (22-26); BLOOD GAS METHEMOGLOBIN 1.3 % (0-2); BLOOD GAS O2 HGB SATURATION 88 % (90-100); BLOOD GAS OXYGEN CONTENT 12.3 Vol % (12.0-20.0); BLOOD GAS PCO2 40 mmHg (38-42); BLOOD GAS PO2 73 mmHg (61-120); BLOOD GAS TOTAL HGB 9.8 G/DL (12.0-16.0); TEMP CORR TO 98.6
[2017-05-17 18:44] LABS: CRITICAL VALUE YES; DRAW SITE RT RADIAL; FIO2 100 %; NUMBER OF ARTERIAL PUNCTURES 1; OXYGEN DEVICE VENTILATOR; STAT YES; ULNAR PULSE Y; VENT SETTINGS AC/VT500/R18/P5
[2017-05-17] MEDS ORDERED: HEPARIN SODIUM - IV 10,000 UNITS/10 ML VIAL ONE (18:46)
[2017-05-17] MEDS ORDERED: HEPARIN-D5W 25,000 U/250 ML 250 ML ONE (19:26)
[2017-05-17] MEDS ORDERED: TIROFIBAN BOLUS INJ 100 ML IV ONE (19:31)
--- NOTE | 2017-05-17 19:56 | CATHPROC ---
IKOR METERING HIS Report Study Information Study Number Admission Scheduled Start Study Start [id number] May 17 2017 12:19AM 05/17/2017 May 17 2017 5:41PM [facility] Catheterization Admit Source Facility Department Transfer in from another acute care facility [facility] - Transition Mgr Rn Physician and Clinical Staff Initial Mg Segovia Mallet Cutter Clementina Arciniega,RN Mallet CutterDevorah Becerra,RN Mallet CutterJunior Aldrich RN Recorder Kendal Schwab,RT(R) (BS) Recorder Devorah Hyde,RT(R) Scrub Koko MccurdyRT(R) Procedures Performed Procedure Location (Site) Vessel Name Angiogram LV LV Ventricle Coronary Angiograms LCA Left Coronary Coronary Angiograms RCA Right Coronary L Heart Cath Pacemaker Temp Fem Vein (right) Femoral Vein PTCA LAD Dist Left Coronary PTCA ADD ON'S Stent LAD Dist Left Coronary Stent LAD Mid Left Coronary Stent RCA Prox Right Coronary Wire insertion Fem Art (right) Femoral Art Equipment Time Project Safety Manager Description Size Mfg Part Number Used/Scraped [id number] 18:59 [employer] STENT, 2.0 8 MINI-VISION RX 2.0 8 Used *[id number] WIRE, BALANCE MIDDLEWEIGHT [id number] 18:48 [employer] 190CM Used 190CM *[id number] 18:19 ROMO WELCH PACING CATHETER J CURVE FR 5 Used *[id number] TRANSDUCER, TRUWAVE [id number] 18:12 ROMO WELCH * Used W/STOCKCOCK *[id number] 18:57 [employer] B[employer]ON, 1.5 12MM EMERGE MR 1.5 12MM Used *[id number] *[id number] [id number] *[id number] 534-520T *[id number] 534-552S *[id number] *[id number] 18:12 [employer] PACK, CCL CUSTOM * Used *[id number] [id number] 18:12 [employer]LINE PACER PEN, SKIN DUAL W/ RULER * Used *[id number] 19:05 [employer] STENT, 2.75 8 INTEGRITY 2.75 8 Used *6205736 [id number] 19:16 [employer] STENT, 3.5 9 INTEGRITY 3.5 9 Used *3261907 [id number] 18:46 Arav 30 DEBBIE INDEFLATOR Used *[id number] [id number] 18:46 [employer] MEDICAL SHEATH, FR6.5 PRELUDE 11CM FR 6.5 038ACT Used *7055877 [id number] 18:12 [employer] MEDICAL WIRE, 3MMJ .035 180CM 180CM Used *[id number] PROBE COVER, STERILE [id number] 18:12 [employer]ICAL * Used ULTRASOUND W/ GEL *6475219 [id number] 18:12 NAMIC MANIFOLD, 4 PORT * Used *[id number] [id number] 18:12 NAMIC TUBING, HIGH PRESSURE 48" 48" Used *[id number] 18:12 [employer] OMNIPAQUE, 350 MG, 150ML 150ML [id number] Used 19:19 [employer] OMNIPAQUE, 350 MG, 150ML 150ML [id number] Used [id number] 18:12 [facility] BLANKET,WARM AIR CCL * Used *[id number] [id number] 18:12 [employer] MEDICAL SHEATH, FR5 TERUMO (10CM) FR 5 Used *2653408 [id number] 18:31 [employer] MEDICAL SHEATH, FR5 TERUMO (10CM) FR 5 Used *[id number] [id number] 18:31 [employer] MEDICAL SHEATH, FR5 TERUMO (10CM) FR 5 Used *[id number] Equipment Model, Serial, Lot Number and Expiration Data Description Model Number Serial Number Lot Number Expiration Date SHEATH, FR6.5 PRELUDE 11CM [id number] 03-14-2020 STENT, 2.0 8 MINI-VISION RX [id number] 12-12-2018 STENT, 2.75 8 INTEGRITY [id number] 01-12-2018 STENT, 3.5 9 INTEGRITY [id number]/24/2018 History: Allergies Allergy Reaction Zocor ARMS SWELL History: Risk Factors Hypertension Dyslipidemia Previous NM Previous Heart Failure Yes Yes Yes No Prior Valve Prior PCI Prior PCIDate Prior CABG Surgery No Yes 10/15/2006 No Cerebrovascular Peripheral Artery Chronic Lung On Dialysis Diabetes Disease Disease Disease No No No No No History: Stress Tests Stress or Imaging Studies Performed No Labs Creatinine (mg/dl) 0.50-1.30 1.3 Medication Medication Total Dose (Bolus/Oral) Medication Total Dosage/Unit 1% XYLOCAINE 20 mL BRILLINTA 180 mg HEPARIN 5500 units LASIX 80 mg NTG (IC) 500 mcg VERSED 0 mg/hr Medications (Bolus/Oral) Medication Time Given Dosage/Unit Administered By Reason LASIX 05/17/2017 6:14:47 PM 40 mg Clementina Arciniega 40 mg LASIX given in lab by Clementina Arciniega RN in Right Antecubital via Peripheral IV. VERSED 05/17/2017 6:17:46 PM 0 mg/hr Patient arrived on 0 mg/hr VERSED via Peripheral IV. Pump/Drip Flow = 5 ml/hr using D5W. 1% XYLOCAINE 05/17/2017 6:27:19 PM 20 mL Mg Daly 20 mL 1% XYLOCAINE given in lab by Mg Daly in Right Groin via Subcutaneous. NTG (IC) 05/17/2017 6:39:59 PM 100 mcg Koko Mccurdy 100 mcg NTG (IC) given in lab by Koko Mccurdy RT(R) via Intra-coronary. HEPARIN 05/17/2017 6:47:56 PM 5500 units Devorah Berman 5500 units HEPARIN given in lab by Devorah Berman RN in Left Antecubital via Peripheral IV. NTG (IC) 05/17/2017 7:00:47 PM 200 mcg Koko Mccurdy 200 mcg NTG (IC) given in lab by Koko Mccurdy RT(R) via Intra-coronary. NTG (IC) 05/17/2017 7:08:01 PM 200 mcg Koko Mccurdy 200 mcg NTG (IC) given in lab by Koko Mccurdy RT(R) via Intra-coronary. LASIX 05/17/2017 7:26:49 PM 40 mg Koko Mccurdy 40 mg LASIX given in lab by Koko Mccurdy RT(R) via Peripheral IV. BRILLINTA 05/17/2017 7:44:15 PM 180 mg Junior Marin RN 180 mg BRILLINTA given in lab by Junior Marin RN in Per mouth via Oral. Medication (Drip) Medication Time Given Dosage/Unit Concentration/Unit Diluent (ml) Solutio n DOPAMINE HCL 05/17/2017 6:19:28 PM 5 mcg/kg/min 800 mg 500 D5W Patient arrived on 5 mcg/kg/min DOPAMINE HCL via Peripheral IV. Pump/Drip Flow = 15.17 ml/hr using D5 W with a concentration of 800 mg in 500 ml. IV Solutions 05/17/2017 6:17:16 PM 0 mL (IV) 500 NaCl .9 Patient arrived on IV Solutions in Right Antecubital via Peripheral IV. Pump/Drip Flow = 20 ml/hr usi ng NaCl .9. IV Solutions 05/17/2017 6:35:14 PM 0 mL (IV) 500 NaCl .9 IV Solutions given in lab by Devorah Berman, DEEP in Right Groin via Peripheral IV. Pump/Drip Flow = 20 ml/hr using NaCl .9. NESIRITIDE DRIP 05/17/2017 6:34:57 PM 0 units/hr 0 STOPPED 0 units/hr NESIRITIDE DRIP STOPPED given in lab by Devorah Berman RN. Pump/Drip Flow = 0 ml/hr using [Solution Name]. Chronological Log Time Study Chronological Log 18:02:05 Patient arrived via Bed. 18:02:07 Patient Name, D.O.B, / Armband Verified By R.N. Vitals capture started with the following parameters, Patient=Adult, Interval=5 min, Initial Warqzgnx=688 mmHg, 18:12:57 Deflation Rate=5 mmHg, Cuff placed on Right Arm 18:13:39 JO=391 bpm, TEJO=747/50 mmhg, SpO2=99.0 %, Resp=17 B/min, Mendez=5, Comment=PT INTUBATED 18:13:41 A # 20 IV was noted in the Antecubital (left). Grade = 0 18:13:54 A # 20 IV was noted in the Antecubital (right). Grade = 0 18:14:47 40 mg LASIX given in lab by Clementina Arciniega RN in Right Antecubital via Peripheral IV. 18:17:16 Patient arrived on IV Solutions in Right Antecubital via Peripheral IV. Pump/Drip Flow = 20 ml/hr using NaCl .9. 18:17:46 Patient arrived on 0 mg/hr VERSED via Peripheral IV. Pump/Drip Flow = 5 ml/hr using D5W. 18:18:36 PV=285 bpm, GJII=168/53 mmhg, SpO2=99.0 %, Resp=20 B/min 18:19:06 A # 20 IV was noted in the Antecubital (left). Grade = 0 Patient arrived on 5 mcg/kg/min DOPAMINE HCL via Peripheral IV. Pump/Drip Flow = 15.17 ml/hr us ing D5W with a 18:19:28 concentration of 800 mg in 500 ml. 18:20:45 Bilateral groins prepped with 2% chlorhexidine, and with a 3 min. waiting time. 18:21:59 Patient arrived on a vent. Rate 21, Peep 10, AC Mode , Resp rate 21, 530TV 18:24:20 HR=48 bpm, RTIV=999/58 mmhg, SpO2=98.0 %, Resp=5 B/min, Mendez=5, Comment=PT INTUBATED 18:24:33 Reference ECG taken 18:25:11 Pressure channel 1 zeroed. 18:26:40 History and physical on the chart or being dictated. Time Out. Correct patient, correct procedure,correct physician, power injector loaded with cont rast with surgical team 18:27:00 present. Time Out Concurred by MD, individual staff in procedure 18:27:18 Case Start 18:27:19 20 mL 1% XYLOCAINE given in lab by Mg Daly in Right Groin via Subcutaneous. 18:29:11 HR=83 bpm, XLSA=196/57 mmhg, SpO2=99.0 %, Resp=17 B/min, Mendez=5, Comment=PT INTUBATED 18:30:11 Access site was Right Femoral Artery using ultrasound 18:31:22 A SHEATH, FR5 TERUMO (10CM) FR 5 was advanced into the Fem Art (right) using the Percutaneo us technique. 18:31:51 Access site was Right Femoral Vein using ultrasound 18:32:05 A SHEATH, FR5 TERUMO (10CM) FR 5 was advanced into the Fem Vein (right) using the Percutane ous technique. 18:32:21 A PACING CATHETER J CURVE FR 5 was advanced to the right ventricle. Rate = 70, Output = 5, MA = 3. 18:33:35 HR=99 bpm, NIBP=95/51 mmhg, SpO2=99.0 %, Resp=15 B/min, Mendez=5, Comment=PT INTUBATED 0 units/hr NESIRITIDE DRIP STOPPED given in lab by Devorah Berman RN. Pump/Drip Flow = 0 ml/hr using [Solution 18:34:57 Name]. IV Solutions given in lab by Devorah Berman, RN in Right Groin via Peripheral IV. Pump/Drip Teddy w = 20 ml/hr using NaCl 18:35:14 .9. A AR MOD INFINITI CATHETER FR 5 was advanced over a wire. OMNIPAQUE, 350 MG, 150ML 150ML was us ed for 18:35:51 injections. Recorded Pressure: Ao, HR=99, Condition=Condition 1 18:36:30 (Aorta) Ao 162/63/108 18:37:03 The RCA was injected and visualized at various angles. OMNIPAQUE, 350 MG, 150ML 150ML used . 18:39:07 HR=70 bpm, JNBO=837/46 mmhg, SpO2=98.0 %, Resp=29 B/min, Mendez=5, Comment=PT INTUBATED 18:39:59 100 mcg NTG (IC) given in lab by Koko Mccurdy RT(R) via Intra-coronary. 18:41:21 Catheter was removed 18:41:32 Activated Clotting Time Drawn A JL 4.0 INFINITI CATHETER FR 5 was advanced over a wire. OMNIPAQUE, 350 MG, 150ML 150ML was us ed for 18:42:17 injections. 18:43:30 The LCA was injected and visualized at various angles. OMNIPAQUE, 350 MG, 150ML 150ML used . 18:43:35 HR=84 bpm, JVMU=319/44 mmhg, SpO2=99.0 %, Resp=21 B/min, Mendez=5, Comment=PT INTUBATED 18:43:37 ACT (Normal Range 90-180) = 116 18:46:14 OMNIPAQUE, 350 MG, 150ML 150ML and 30 DEBBIE INDEFLATOR added. 18:47:56 5500 units HEPARIN given in lab by Devorah Berman, RN in Left Antecubital via Peripheral IV . A SHEATH, FR6.5 PRELUDE 11CM FR 6.5 was exchanged in the Fem Art (right). This was necessary in order to 18:48:29 accomodate a larger catheter. 18:48:36 HR=84 bpm, NIBP=81/38 mmhg, SpO2=99.0 %, Resp=21 B/min, Mendez=5, Comment=PT INTUBATED A XB 3.0 GUIDE CATHETER FR 6 was advanced over a wire. OMNIPAQUE, 350 MG, 150ML 150ML was used for 18:48:45 injections. 18:49:29 NIBP STAT measurement started. 18:50:03 HR=71 bpm, NIBP=90/29 mmhg, SpO2=99.0 %, Resp=14 B/min, Mendez=5, Comment=PT INTUBATED 18:51:07 A WIRE, BALANCE MIDDLEWEIGHT 190CM 190CM was inserted via Fem Art (right). 18:53:38 HR=69 bpm, NIBP=90/33 mmhg, SpO2=99.0 %, Resp=32 B/min, Mendze=5, Comment=PT INTUBATED A BALLOON, 1.5 12MM EMERGE MR 1.5 12MM was inserted over WIRE, BALANCE MIDDLEWEIGHT 190CM 190CM via 18:55:26 the Fem Art (right). A BALLOON, 1.5 12MM EMERGE MR 1.5 12MM over a WIRE, BALANCE MIDDLEWEIGHT 190CM 190CM in the LAD Dist 18:57:50 was inflated using a 30 DEBBIE INDEFLATOR at ~DEBBIE~ debbie for ~SECONDS~ sec. 18:58:39 HR=70 bpm, OJEM=021/36 mmhg, SpO2=98.0 %, Resp=33 B/min, Mendez=5, Comment=PT INTUBATED 18:59:25 Balloon Removed. 19:00:13 ACT (Normal Range 90-180) = 288 19:00:47 200 mcg NTG (IC) given in lab by Koko Mccurdy, RT(R) via Intra-coronary. A STENT, 2.0 8 MINI-VISION RX 2.0 8 was advanced through a XB 3.0 GUIDE CATHETER FR 6 over a WI RE, BALANCE 19:03:09 MIDDLEWEIGHT 190CM 190CM. 19:03:42 HR=70 bpm, JWON=145/42 mmhg, SpO2=97.0 %, Resp=20 B/min, Mendez=5, Comment=PT INTUBATED A STENT, 2.0 8 MINI-VISION RX 2.0 8 was deployed using a 30 DEBBIE INDEFLATOR at 10 atmospheres fo r 15 seconds in 19:03:55 the LAD Dist. An STENT, 2.75 8 INTEGRITY 2.75 8 Bare Metal Stent was inserted through a XB 3.0 GUIDE CATHETER FR 6 over a 19:04:33 WIRE, BALANCE MIDDLEWEIGHT 190CM 190CM. A STENT, 2.75 8 INTEGRITY 2.75 8 was deployed using a 30 DEBBIE INDEFLATOR at 12 atmospheres for 2 0 seconds in 19:04:58 the LAD Mid. 19:07:34 Delivery device removed 19:08:01 200 mcg NTG (IC) given in lab by Koko Mccurdy RT(R) via Intra-coronary. 19:08:37 HR=88 bpm, NIBP=98/42 mmhg, SpO2=99.0 %, Resp=17 B/min, Mendez=5, Comment=PT INTUBATED 19:12:16 Wire removed 19:13:40 HR=92 bpm, MVDH=915/42 mmhg, SpO2=99.0 %, Resp=6 B/min, Mendez=5, Comment=PT INTUBATED 19:14:14 Catheter was removed [facility] GU[facility]TER FR 6 was advanced over a wire. OMNIPAQUE, 350 MG, 150ML 150ML was used for 19:14:15 injections. 19:14:23 A WIRE, BALANCE MIDDLEWEIGHT 190CM 190CM was inserted via Fem Art (right). 19:15:41 Interventional wire has crossed the lesion 19:18:39 HR=96 bpm, PMIS=462/53 mmhg, SpO2=99.0 %, Resp=13 B/min, Mendez=5, Comment=PT INTUBATED 19:18:56 The RCA was injected and visualized at various angles. OMNIPAQUE, 350 MG, 150ML 150ML used . An STENT, 3.5 9 INTEGRITY 3.5 9 Bare Metal Stent was inserted through a 3DRC GUIDE CATHETER FR 6 over a 19:19:00 WIRE, BALANCE MIDDLEWEIGHT 190CM 190CM. 19:19:59 Delivery device removed A STENT, 3.5 9 INTEGRITY 3.5 9 was deployed using a 30 DEBBIE INDEFLATOR at 13 atmospheres for 30 seconds in the 19:21:00 RCA Prox. 19:21:55 Re-inflated the stent balloon in the RCA Prox to 9 DEBBIE for 10 seconds. 19:23:03 Re-inflated the stent balloon in the RCA Prox to 13 DEBBIE for 15 seconds. 19:23:40 HR=97 bpm, NIBP=95/44 mmhg, SpO2=99.0 %, Resp=0 B/min, Mendez=5, Comment=PT INTUBATED 19:24:18 Wire removed 19:24:21 Catheter was removed A PIGTAIL ANG. INFINITI CATHETER FR 5 was advanced over a wire. OMNIPAQUE, 350 MG, 150ML 150ML was used 19:25:24 for injections. Recorded Pressure: LV, HR=98, Condition=Condition 1 19:25:54 (Left Ventricle) LV 146/22/35 19:26:49 40 mg LASIX given in lab by Koko Mccurdy, RT(R) via Peripheral IV. 19:26:57 The LV was injected at 10 cc/sec for a total of 30. OMNIPAQUE, 350 MG, 150ML 150ML used. Recorded Pressure: LV, Ao, HR=92, Condition=Condition 1 19:27:42 (Left Ventricle) LV 150/23/36, (Aorta) Ao 142/62/96 PACING AT 120 19:28:24 19:28:39 ZJ=451 bpm, NIBP=92/48 mmhg, YrB7=816.0 %, Resp=18 B/min, Mendez=5, Comment=PT INTUBATED 19:29:43 MA 4 RATE SET AT 60 19:32:28 Case End 19:32:52 Catheter(s) removed without difficulty 19:32:58 In the Fem Art (right) the SHEATH, FR5 TERUMO (10CM) FR [address] by Koko Mccurdy RT(R). 19:33:10 In the Fem Vein (right) the SHEATH, FR6.5 PRELUDE 11CM FR 6.[address] by Koko Scales, RT(R). 19:33:22 Sterile dressing applied to site 19:33:23 No case complications noted. 19:33:23 Cine recording checked. 19:33:26 Bedside Report will be given. 19:33:28 Contrast Scanned 19:33:32 A Left Heart Cath was performed. 19:33:38 Clinical correlaton risk stratification. 19:34:17 HR=90 bpm, EGOJ=762/41 mmhg, TlI9=171.0 %, Resp=14 B/min, Mendez=5, Comment=PT INTUBATED 19:38:45 HR=95 bpm, HTBL=687/50 mmhg, SvA8=927.0 %, Resp=16 B/min, Mendez=5, Comment=PT INTUBATED 19:43:44 HR=99 bpm, PHRM=481/53 mmhg, SpO2=99.0 %, Resp=33 B/min, Mendez=5, Comment=PT INTUBATED 19:44:15 180 mg BRILLINTA given in lab by Tomas ADAME, Junior in Per mouth via Oral. 19:45:33 MILADIS CONNECTED 19:48:29 TEMP PACERMAKER LEFT IN AND SECURED End Study - Contrast Media Used In Study Contrast Total Opened (mL) Total Used (mL) Total Wasted (mL) Omnipaque 270 270 0 End Study - Maximum Contrast Load Max Contrast Load (mL) 311.2 End Study - Radiation Exposure Fluoro Time (minutes) 13.6 End Study - Patient Disposition Complications Transferred To Interventional Outcome No Telemetry Bed successful
[2017-05-17] MEDS ORDERED: ASPIRIN 81 MG CHEW TAB G-TUBE ONE (20:00)
--- NOTE | 2017-05-17 20:59 | PD.CONS ---
HPI Service Critical Care Medicine Consult Requested By Primary Care Physician Manas Borja MD History of Present Illness 81-year-old very pleasant female with a history of HTN, atrial fibrillation, DM , NH, and CKD stage 3 presented to the ED with complaints of a cough, shortness of breath and chest tightness for the last week. She states she has had a productive cough with white sputum production with increasing shortness of breath. She was admitted to ICU and while in the unit she became significantly bradycardic due to complete heart block, also in respiratory distress and severe hypoxemia. She was emergently intubated and taken to cardiac catheterization lab for retrograde heart catheterization with left ventriculography and selective coronary angiography, angioplasty and stenting of the distal left anterior descending artery and mid left anterior descending artery, and angioplasty and stenting of the proximal/ostial right coronary artery. Also transvenous pacemaker placement. Review of Systems ROS Unobtainable patient is sedated and intubated Past Family Social History Allergies: Coded Allergies: Zocor (Verified Allergy, Severe, ARMS SWELL, 05/16/17) Past Medical History Hypertension Diabetes mellitus Hypertension Myocardial infarction Chronic kidney disease stage III Past Surgical History Heart stents Cholecystectomy Hysterectomy Reported Medications Reported Meds & Active Scripts Active Reported Clonidine (Clonidine HCl) 0.1 Mg Tab 0.1 Mg PO BID Glucosamine-Chondroitin 500-400 Mg Tab 1 Tab PO DAILY Multiple Vitamin 1 Tab 1 Tab PO DAILY Calcium 600 with Vitamin D (Calcium Carbonate-Cholecalciferol) 600-400 mg-Unit Tab 1 Tab PO DAILY Aspirin 325 Mg Tab 325 Mg PO DAILY Cranberry Urinary Comfort (Vitamins C & E) 1 Cap 1 Cap PO DAILY [place]-3 Fish Oil/Vitamin (Fish Oil-Cholecalciferol) 1,000-1,000 Mg Cap 3 Cap PO BID Lorazepam 0.5 Mg Tab 0.5 Mg PO BID Amlodipine (Amlodipine Besylate) 5 Mg Tab 5 Mg PO BID Irbesartan-Hydrochlorothiazide 300-12.5 Mg Tab 1 Tab PO DAILY Metoprolol Tartrate 50 Mg Tab 50 Mg PO HS Atorvastatin (Atorvastatin Calcium) 20 Mg Tab 20 Mg PO EVERY OTHER DAY Metformin (Metformin HCl) 500 Mg Tab 750 Mg PO BIDPC With meals Diltiazem CD 24 HR 240 Mg Caper 240 Mg PO DAILY Buspirone (Buspirone HCl) 30 Mg Tab 30 Mg PO BID Hydrochlorothiazide 12.5 Mg Tab 12.5 Mg PO DAILY Hydralazine HCl 25 Mg Tablet 10 Mg PO TID Active Ordered Medications Current Medications Medications (Trade) Dose Ordered Sig/Renaldo Route PRN Reason Start Time Stop Time Status Last Admin Dose Admin Heparin Sodium (Porcine) (Heparin Inj) 5,000 units UNSCH PRN IV APTT LESS THAN 25 05/17/17 06:00 Heparin Sodium (Porcine) 2500 units 2,500 units UNSCH PRN IV APTT 25 TO 39 05/17/17 06:00 Heparin Sodium/ Dextrose (Heparin-D5W Inj) 250 ml @ 0 mls/hr TITRATE IV 05/17/17 00:00 05/17/17 00:46 Sodium Chloride (NS Flush) 2 ml UNSCH PRN IV FLUSH FLUSH AFTER USING IV ACCESS 05/17/17 00:30 Sodium Chloride (NS Flush) 2 ml BID IV FLUSH 05/17/17 09:00 05/17/17 07:46 Naloxone HCl (Narcan Inj) 0.4 mg UNSCH PRN IV SEE LABEL COMMENTS 05/17/17 00:30 Miscellaneous Information Patient in critical care unit? Ass... Q361D .XX 05/17/17 02:45 Chlorhexidine Gluconate (Chlorhexidine 2% Cloth) 3 pack DAILY@04 TOPICAL 05/17/17 04:00 05/21/17 04:01 05/17/17 04:00 Chlorhexidine Gluconate (Chlorhexidine 2% Cloth) 3 pack UNSCH PRN TOPICAL HYGIENIC CARE 05/17/17 02:45 05/22/17 02:34 Amlodipine Besylate (Norvasc) 5 mg BID PO 05/17/17 09:00 Hold 05/17/17 07:46 Buspirone HCl (Buspar) 30 mg BID PO 05/17/17 09:00 05/17/17 22:13 Clonidine (Catapres) 0.1 mg BID PO 05/17/17 09:00 05/17/17 07:47 Diltiazem HCl (Cardizem Cd) 240 mg DAILY PO 05/17/17 09:00 Hold 05/17/17 07:48 Hydralazine HCl (Apresoline) 10 mg TID PO 05/17/17 09:00 05/17/17 16:32 Metformin HCl (Glucophage) 750 mg BIDPC PO 05/17/17 09:00 Hold 05/17/17 16:32 Losartan Potassium (Cozaar) 100 mg DAILY PO 05/17/17 09:00 Hold 05/17/17 07:47 Hydrochlorothiazide (Hydrodiuril) 12.5 mg DAILY PO 05/17/17 09:00 05/17/17 07:48 Miscellaneous 1 ea 1 ea UNSCH PRN OTHER SEE LABEL COMMENTS 05/17/17 05:30 Levofloxacin/ Dextrose (Levaquin 750 Mg Premix Inj) 150 ml @ 100 mls/hr Q48H IV 05/19/17 08:00 Nitroglycerin (Nitrostat Sl) 0.4 mg Q5M PRN SL X 3 doses for chest pain 05/17/17 09:15 05/17/17 09:28 Alprazolam (Xanax) 0.25 mg Q8H PRN PO ANXIETY 05/17/17 10:00 05/17/17 16:43 Benzonatate (Tessalon) 100 mg TID PRN PO COUGH 05/17/17 09:15 05/17/17 16:43 Aspirin (Aspirin Chew) 81 mg DAILY PO 05/18/17 09:00 Ticagrelor (Brilinta) 90 mg BID PO 05/17/17 21:00 05/17/17 22:23 Atorvastatin Calcium 80 mg 80 mg HS PO 05/17/17 21:00 05/17/17 22:13 Midazolam HCl (Versed 100 Mg/ ml Inj) 100 ml @ 0 mls/hr TITRATE IV 05/17/17 22:00 Family History Mom: Lung cancer Dad: NH at age 43 Social History No history of smoking alcohol or illicit drug abuse Physical Exam Vital Signs Vital Signs Date Time Temp Pulse Resp B/P Pulse Ox O2 Delivery O2 Flow Rate FiO2 05/17/17 20:19 100 Ventilator 05/17/17 20:14 100 100 05/17/17 18:00 100 100 05/17/17 17:43 98 100 05/17/17 16:00 66 05/17/17 16:00 99.6 05/17/17 14:00 57 05/17/17 12:00 61 05/17/17 12:00 99.1 61 20 134/62 92 05/17/17 10:00 59 05/17/17 08:41 93 Nasal Cannula 3.00 05/17/17 08:00 97.6 72 22 158/65 92 05/17/17 08:00 72 05/17/17 06:00 59 05/17/17 04:23 96 Nasal Cannula 3.00 05/17/17 04:00 60 05/17/17 04:00 99.1 58 28 134/63 93 05/17/17 02:41 99.1 57 22 129/59 94 05/17/17 01:25 98 Nasal Cannula 3.00 05/17/17 00:00 64 18 187/78 95 Nasal Cannula 3 05/16/17 22:48 20 95 Nasal Cannula 3 05/16/17 22:48 95 Nasal Cannula 3 05/16/17 22:02 101.5 58 18 201/83 90 Room Air Physical Exam GENERAL: Well-nourished, well-developed patient. SKIN: Warm and dry. HEAD: Normocephalic. EYES: No scleral icterus. No injection or drainage. NECK: Supple, trachea midline. No JVD or lymphadenopathy. CARDIOVASCULAR: Regular rate and rhythm without murmurs, gallops, or rubs. RESPIRATORY: Breath sounds equal bilaterally. No accessory muscle use. GASTROINTESTINAL: Abdomen soft, non-tender, nondistended. MUSCULOSKELETAL: No cyanosis, or edema. BACK: Nontender without obvious deformity. NEURO EXAM: GCS: M6 Vt E3 Mental Status: The patient is sedated and intubated Cranial Nerves: Unable to obtain patient is sedated and intubated Reflexes: Biceps, patellar, and Achilles are 2/4 bilaterally. No clonus. Sensation: Unobtainable due to sedation and intubation Motor: Good muscle tone. Strength is 5/5 bilaterally. Cerebellar: [id number] and [id number] unable to examine Laboratory Laboratory Tests Test 05/16/17 05/17/17 05/17/17 05/17/17 22:40 02:25 04:50 09:21 Sodium Level 136 136 Potassium Level 3.9 3.7 Chloride Level 101 103 Carbon Dioxide Level 23.4 24.6 Anion Gap 12 8 Blood Urea Nitrogen 23 20 Creatinine 1.37 1.35 Estimat Glomerular Filtration 37 38 Rate Random Glucose 153 147 Calcium Level 9.8 9.2 Total Creatine Kinase 97 104 Troponin I 0.11 0.47 White Blood Count 9.7 12.5 Red Blood Count 3.71 3.22 Hemoglobin 10.4 9.1 Hematocrit 31.7 27.0 Mean Corpuscular Volume 85.3 83.9 Mean Corpuscular Hemoglobin 28.0 28.1 Mean Corpuscular Hemoglobin 32.8 33.5 Concent Red Cell Distribution Width 16.2 15.7 Platelet Count 191 173 Mean Platelet Volume 8.1 8.3 Neutrophils (%) (Auto) 83.9 77.0 Lymphocytes (%) (Auto) 8.7 16.1 Monocytes (%) (Auto) 5.5 6.1 Eosinophils (%) (Auto) 0.6 0.2 Basophils (%) (Auto) 1.3 0.6 Neutrophils # (Auto) 8.2 9.6 Lymphocytes # (Auto) 0.9 2.0 Monocytes # (Auto) 0.5 0.8 Eosinophils # (Auto) 0.1 0.0 Basophils # (Auto) 0.1 0.1 CBC Comment AUTO DIFF DIFF FINAL Differential Comment AUTO DIFF CONFIRMED Platelet Estimate NORMAL Platelet Morphology Comment NORMAL Prothrombin Time 11.4 Prothromb Time International 1.0 Ratio Activated Partial 30.9 41.1 Thromboplast Time B-Type Natriuretic Peptide 181 Nasal Screen MRSA (PCR) MRSA NOT DETECTED Test 05/17/17 05/17/17 05/17/17 11:56 15:59 17:35 Total Creatine Kinase 113 Troponin I 0.60 Activated Partial 38.7 Thromboplast Time Blood Gas Puncture Site RT RADIAL Blood Gas Patient Temperature 98.6 Blood Gas HCO3 19 Blood Gas Base Excess -6.1 Blood Gas Oxygen Saturation 88 Arterial Blood pH 7.30 Arterial Blood Partial 40 Pressure CO2 Arterial Blood Partial 73 Pressure O2 Arterial Blood Oxygen Content 12.3 Arterial Blood 1.5 Carboxyhemoglobin Arterial Blood Methemoglobin 1.3 Blood Gas Hemoglobin 9.8 Oxygen Delivery Device VENTILATOR Blood Gas Ventilator Setting AC/VT500/R18/P5 Blood Gas Inspired Oxygen 100 Date/Time Procedure Status Source Growth 05/16/17 23:30 Aerobic Blood Culture - Preliminary Resulted Blood Peripheral NO GROWTH IN 1 DAY 05/16/17 23:30 Anaerobic Blood Culture - Preliminary Resulted Blood Peripheral NO GROWTH IN 1 DAY Result Diagram: 05/17/17 0450 05/17/17 0450 Course Last 24 hours Impressions Chest X-Ray 05/17/17 0000 Signed Impressions: Service Date/Time: May 17:35 - CONCLUSION: 1. ET tube in good position. 2. Increasing left infiltrates and new right lung infiltrates. Arik Cosby MD Assessment and Plan Assessment and Plan Respiratory failure - Intubated for an airway protection - Continue mechanical ventilation - Start weaning when hemodynamically and neurologically stable - [place] [facility] [place] Coronary artery disease - Status post angioplasty and stents of the distal LAD and mid left anterior descending artery, and angioplasty and stenting of the proximal/ostial right coronary artery - Aspirin - Brilinta - Atorvastatin - Nitroglycerin - Further per coin dealer AV block - Status post temporary transvenous pacemaker placement - Monitor changes after revascularization Diabetes mellitus - Insulin sliding scale Hypertension - Clonidine and hydralazine when necessary Chronic kidney disease stage III - Gentle IV fluid hydration - Monitor I's and O - Electrolytes and creatinine levels DVT GI prophylaxis - Teds SCDs - Subcutaneous heparin - Pepcid Critical Care: The total critical care time was 35 minutes. Time to perform other separately billable procedures was not included in the critical care time. Taye Gallo MD May 17, 2017 20:59
[2017-05-17] MEDS ORDERED: METOPROLOL TARTRATE 50 MG TAB PO SCH (21:00)
--- NOTE | 2017-05-17 21:55 | MA ---
cc: MG DALY MD DATE 05/17/17 This procedure is emergent. INDICATION Acute congestive heart failure, high degree AV block with severe symptomatic bradycardia, recent non-ST elevation myocardial infarction, acute coronary syndrome, coronary artery disease, history of LAD stenting. PROCEDURE PERFORMED 1. Temporary pacemaker placement. 2. Retrograde left heart catheterization with left ventriculography and selective coronary angiography. 3. Angioplasty and stenting of the distal left anterior descending artery and mid left anterior descending artery. 4. Angioplasty and stenting of the proximal/ostial right coronary artery. 5. Moderate sedation ACCESS SITE Right femoral artery and right femoral vein. EQUIPMENT USED Temporary pacemaker. 5 Danish pigtail, 5-Danish JL-4 and AR modified coronary catheters. XB LAD guide, 1.5 balloon for predilatation, 2.0 x 8 mm Minivision at 10 atmospheres to the distal LAD. 2.75 x 8 mm Integrity stent at 12 atmospheres to the mid LAD. 3 DRC guide with side holes. 2.5 balloon for predilatation. 3.5 x 9 mm Integrity stent at 13 atmospheres to prox/ostial RCA. MEDICATIONS 1. Versed. 2. IV heparin. 3. IV nitroglycerin. 4. IC Aggrastat IV bolus. Brilinta 180 milligrams per NG. CONTRAST Omnipaque 270 cc. COMPLICATIONS None. ESTIMATED BLOOD LOSS Less than 10 cc. METHOD OF HEMOSTASIS Sheath and temporary pacemaker left in place. RESULTS HEMODYNAMICS Heart rate 35 beats per minute V pacing, 78 beats per minute, temporary pacemaker in place. Left ventricular end diastolic pressure 23 mmHg. Left ventricle 145/23, aorta 145/62/96. The left ventricular ejection fraction of 45%. Wall motion normal. No mitral regurgitation. CORONARY ANGIOGRAPHY Left main coronary patent. Left anterior descending artery had 40% in-stent restenosis in the proximal portion. There was focal 90% stenosis in the midportion. Lesion length 5 mm. Pre ALEKSANDRA flow III, post ALEKSANDRA flow III, post stenosis 0. Distal LAD 80% stenosis, lesion length 5 mm, pre ALEKSANDRA flow III, post ALEKSANDRA flow III, post stenosis 0. D1 40% stenosis, D2 patent. Left circumflex patent. OM1 was large vessel which is patent. Right coronary with 80% ostial stenosis which did not change with administration of IC nitroglycerin. PDA patent, PLV patent. Post intervention angiography revealed excellent patency of the stented segments and no evidence of dissection, thrombosis or distal embolization. DIAGNOSIS 1. Acute congestive heart failure. 2. High degree AV block with severe symptomatic bradycardia. 3. Acute coronary syndrome. 4. Severe multivessel coronary artery disease. 5. Mild left ventricular dysfunction consistent with ischemic cardiomyopathy. 6. Successful angioplasty and stenting of distal and mid LAD. 7. Successful angioplasty and stenting of the ostial right coronary artery. 8. Mild left ventricular dysfunction consistent with ischemic cardiomyopathy. DISPOSITION Ms. Vega will be monitored in the ICU after her procedure. Temporary pacemaker was left in and right femoral sheath was left in for hemodynamic monitoring. Continue IV heparin. We will continue therapy with Brilinta and baby aspirin. Continue aggressive modification of her cardiac risk factors. We will continue therapy for congestive heart failure. We will closely monitor her renal function. Mg Daly MD ORoopa/RAEGAN /7:42 PM /9:22 PM SHARRI
[2017-05-17] MEDS ORDERED: MIDAZOLAM 100 MG/NS 100 ML DRIP Premix IV SCH (22:00)
[2017-05-17] MEDS: ATORVASTATIN 10 MG TAB PO SCH (22:13)
[2017-05-17] MEDS: TICAGRELOR 90 MG TAB PO SCH (22:23)
[2017-05-17 23:36] LABS: APTT (PATIENT) 59.2 SEC (24.3-30.1)
[2017-05-18] VITALS (20 sets, daily range): BP systolic 105–150; BP diastolic 41–62; PULSE 61–76; RESP 20–24; TEMP 98.5–99.9; O2SAT 93–99
[2017-05-18] MEDS: CHLORHEXIDINE GLUCONATE 2 % 1 PACK (2 CLOTHS)(taper/protocol) TOPICAL SCH (04:00)
[2017-05-18 04:37] LABS: AUTOMATED NEUTROPHIL # 9.9 TH/MM3 (1.8-7.7); BASOPHIL % 0.2 % (0.0-2.0); HEMATOCRIT 24.3 % (35.0-46.0); HEMO FLAGS DIFF FINAL; LYMPH % 5.8 % (9.0-44.0); LYMPHOCYTE # 0.6 TH/MM3 (1.0-4.8); MEAN CORPUSCULAR HEMOGLOBIN 28.6 PG (27.0-34.0); PLATELET COUNT 160 TH/MM3 (150-450); RED CELL DISTRIBUTION WIDTH 15.8 % (11.6-17.2); WHITE BLOOD COUNT 11.2 TH/MM3 (4.0-11.0)
[2017-05-18 04:47] LABS: APTT (PATIENT) 42.1 SEC (24.3-30.1)
[2017-05-18 05:16] LABS: ALKALINE PHOSPHATASE 46 U/L (45-117); ALT (GPT) 38 U/L (10-53); ANION GAP 9 MEQ/L (5-15); AST (GOT) 24 U/L (15-37); BICARBONATE 25.5 MEQ/L (21.0-32.0); BLOOD UREA NITROGEN 20 MG/DL (7-18); CHLORIDE 102 MEQ/L (98-107); CREATINE KINASE 122 U/L (26-192); GLOMERULAR FILTRATION RATE 38 ML/MIN (>89); HDL CHOLESTEROL 28.5 MG/DL (40.0-60.0); LDL CHOLESTEROL 27 MG/DL (0-99); MAGNESIUM 1.4 MG/DL (1.5-2.5); POTASSIUM 3.6 MEQ/L (3.5-5.1); SODIUM (NA) 136 MEQ/L (136-145); TOTAL BILIRUBIN ADULT 0.7 MG/DL (0.2-1.0)
[2017-05-18 05:33] LABS: CKMB 4.7 NG/ML (0.5-3.6)
[2017-05-18] MEDS: SODIUM CHLOR 0.9% 1000 ML INJ 1,000 ML IV SCH ×2 (05:56→15:12)
[2017-05-18 06:14] LABS: BLOOD GAS BASE EXCESS -0.4 mmol/L (-2-2); BLOOD GAS CARBOXYHEMOGLOBIN 1.5 % (0-4); BLOOD GAS HCO3 23 mmol/L (22-26); BLOOD GAS O2 HGB SATURATION 83 % (90-100); BLOOD GAS OXYGEN CONTENT 12.7 Vol % (12.0-20.0); BLOOD GAS PCO2 35 mmHg (38-42); BLOOD GAS PO2 53 mmHg (61-120); BLOOD GAS TOTAL HGB 10.8 G/DL (12.0-16.0); TEMP CORR TO 98.6
[2017-05-18 06:15] LABS: CRITICAL VALUE YES; OXYGEN DEVICE VENTILATOR; VENT SETTINGS VOLUME AC 20/500/+5
[2017-05-18 06:16] LABS: DRAW SITE RT RADIAL; FIO2 60 %; NUMBER OF ARTERIAL PUNCTURES 1; STAT NO; ULNAR PULSE PRESENT
[2017-05-18] MEDS ORDERED: ISOSORBIDE MONONITRATE 30 MG TAB PO SCH (07:00)
[2017-05-18] MEDS: hydrALAZINE HCL 25 MG TAB PO SCH ×3 (07:52→18:00)
[2017-05-18] MEDS: cloNIDine HCL 0.1 MG TAB PO SCH ×2 (07:53→20:16)
[2017-05-18] MEDS: busPIRone HCL 10 MG TAB PO SCH ×2 (08:04→20:16)
[2017-05-18] MEDS: TICAGRELOR 90 MG TAB PO SCH ×2 (08:04→20:16)
[2017-05-18] MEDS: ASPIRIN 81 MG CHEW TAB PO SCH (08:04)
[2017-05-18] MEDS: SODIUM CHLORIDE 0.9% FLUSH 10 ML FLUSH IV FLUSH SCH ×2 (08:05→20:15)
[2017-05-18] MEDS: HYDROCHLOROTHIAZIDE 25 MG TAB PO SCH (09:00)
[2017-05-18] MEDS ORDERED: TICAGRELOR 90 MG TAB PO SCH (09:00)
[2017-05-18] MEDS ORDERED: ASPIRIN 81 MG CHEW TAB PO SCH (09:00)
[2017-05-18] MEDS ORDERED: DOPamine 800 MG/D5W PREMIX 500 ML IV SCH (09:15)
--- NOTE | 2017-05-18 10:20 | EKG ---
Date Performed: 05/18/2017 Time Performed: 07:02:56 PTAGE: 81 years EKG: Sinus rhythm MARKED LEFT AXIS DEVIATION RIGHT BUNDLE BRANCH BLOCK LEFT VENTRICULAR HYPERTROPHY AND ST-T CHANGE AB NORMAL ECG Since PREVIOUS TRACING , no significant change noted PREVIOUS TRACIN05/17/2017 21.25 DOCTOR: Chano Wilson Interpretating Date/Time 05/18/2017 10:19:11
--- NOTE | 2017-05-18 12:10 | EKG ---
Date Performed: 05/17/2017 Time Performed: 17:18:20 PTAGE: 81 years EKG: Sinus rhythm with 2nd degree (Mobitz I) SA block with 1st degree A-V block. Lead(s) unsuitable for analysis: V1 L eft axis deviation Inferior infarct - age undetermined Possible anterior infarct - age undetermined A bnormal ECG PREVIOUS TRACING : 05/17/2017 09.47 Compared to the prior study, second degree mobitz I block i s now present. DOCTOR: Chano Wilson Interpretating Date/Time 05/18/2017 12:09:32
--- NOTE | 2017-05-18 12:10 | EKG ---
Date Performed: 05/17/2017 Time Performed: 21:25:18 PTAGE: 81 years EKG: Possible ectopic atrial rhythm Possible left anterior fascicular block Inferior infarct - a ge undetermined QRS changes V3/V4 may be due to LVH but cannot rule out anterior infarct Tall R V1/V2 probably reflect the infarct Left ventricular hypertrophy Lateral T wave changes are probably due to ventricular hypertrophy Abnormal ECG PREVIOUS TRACING : 05/17/2017 17.18 Second degree block has resolved. DOCTOR: Chano Wilson Interpretating Date/Time 05/18/2017 12:09:57
[2017-05-18] MEDS: PROPOFOL 1000 MG/100 ML IV SCH ×2 (15:09→21:27)
[2017-05-18] MEDS ORDERED: ARTIFICIAL TEARS OPTH SOLN 15 ML BTL EACH EYE PRN (16:15)
--- NOTE | 2017-05-18 16:26 | PD.CARD.PN ---
Subjective Subjective Remarks Intubated, sedated, no significant bradycardia overnight, weaned off dopamine, vent weaning initiated, was somewhat restless off sedation Objective Medications Current Medications Medications (Trade) Dose Ordered Sig/Renaldo Route Start Time Stop Time Status Last Admin (Heparin Inj) 5,000 units UNSCH PRN IV 05/17/17 06:00 Heparin Sodium (Porcine) 2500 units 2,500 units UNSCH PRN IV 05/17/17 06:00 (Heparin-D5W Inj) 250 ml @ 0 mls/hr TITRATE IV 05/17/17 00:00 05/17/17 00:46 (NS Flush) 2 ml UNSCH PRN IV FLUSH 05/17/17 00:30 (NS Flush) 2 ml BID IV FLUSH 05/17/17 09:00 05/18/17 08:05 (Narcan Inj) 0.4 mg UNSCH PRN IV 05/17/17 00:30 Miscellaneous Information Patient in critical care unit? Ass... Q361D .XX 05/17/17 02:45 (Chlorhexidine 2% Cloth) 3 pack DAILY@04 TOPICAL 05/17/17 04:00 05/21/17 04:01 05/18/17 04:00 (Chlorhexidine 2% Cloth) 3 pack UNSCH PRN TOPICAL 05/17/17 02:45 05/22/17 02:34 (Norvasc) 5 mg BID PO 05/17/17 09:00 Hold 05/17/17 07:46 (Buspar) 30 mg BID PO 05/17/17 09:00 05/18/17 08:04 (Catapres) 0.1 mg BID PO 05/17/17 09:00 05/17/17 07:47 (Cardizem Cd) 240 mg DAILY PO 05/17/17 09:00 Hold 05/17/17 07:48 (Apresoline) 10 mg TID PO 05/17/17 09:00 05/17/17 16:32 (Glucophage) 750 mg BIDPC PO 05/17/17 09:00 Hold 05/17/17 16:32 (Cozaar) 100 mg DAILY PO 05/17/17 09:00 Hold 05/17/17 07:47 (Hydrodiuril) 12.5 mg DAILY PO 05/17/17 09:00 05/17/17 07:48 Miscellaneous 1 ea 1 ea UNSCH PRN OTHER 05/17/17 05:30 (Levaquin 750 Mg Premix Inj) 150 ml @ 100 mls/hr Q48H IV 05/19/17 08:00 (Nitrostat Sl) 0.4 mg Q5M PRN SL 05/17/17 09:15 05/17/17 09:28 (Xanax) 0.25 mg Q8H PRN PO 05/17/17 10:00 05/17/17 16:43 (Tessalon) 100 mg TID PRN PO 05/17/17 09:15 05/17/17 16:43 (Aspirin Chew) 81 mg DAILY PO 05/18/17 09:00 05/18/17 08:04 (Brilinta) 90 mg BID PO 05/17/17 21:00 05/18/17 08:04 Atorvastatin Calcium 80 mg 80 mg HS PO 05/17/17 21:00 05/17/17 22:13 Midazolam HCl 100 ml @ 0 mls/hr TITRATE IV 05/17/17 22:00 05/18/17 13:16 Sodium Chloride 1,000 ml @ 100 mls/hr Q10H IV 05/18/17 04:00 05/18/17 15:12 Propofol 100 ml @ 0 mls/hr TITRATE IV 05/18/17 09:15 05/18/17 15:09 (DOPamine INJ PREMIX) 500 ml @ 0 mls/hr TITRATE IV 05/18/17 09:15 Vital Signs / I&O Vital Signs Date Time Temp Pulse Resp B/P Pulse Ox O2 Delivery O2 Flow Rate FiO2 05/18/17 16:00 61 05/18/17 15:49 96 40 05/18/17 14:00 61 05/18/17 14:00 61 05/18/17 12:00 98.6 61 20 114/56 95 134/41 05/18/17 12:00 61 05/18/17 12:00 61 05/18/17 12:00 70 05/18/17 11:02 96 50 05/18/17 10:00 68 05/18/17 10:00 68 05/18/17 09:01 94 50 05/18/17 08:00 70 05/18/17 08:00 66 05/18/17 08:00 66 05/18/17 08:00 98.6 66 22 125/58 94 150/44 05/18/17 06:00 62 05/18/17 06:00 70 05/18/17 05:07 99 60 05/18/17 04:00 68 05/18/17 04:00 99.0 64 22 106/52 95 148/53 05/18/17 04:00 60 05/18/17 03:21 60 05/18/17 02:00 68 05/18/17 01:03 99 Ventilator 05/18/17 01:00 70 05/18/17 00:59 99 70 05/18/17 00:00 98.5 65 22 105/52 98 129/43 05/18/17 00:00 65 22 105/52 98 129/43 05/18/17 00:00 80 05/18/17 00:00 65 05/17/17 23:45 65 21 124/42 98 05/17/17 23:30 64 21 118/41 98 05/17/17 23:15 65 22 120/41 98 05/17/17 23:00 65 22 91/46 98 118/40 05/17/17 22:45 80 32 146/47 99 05/17/17 22:30 66 22 132/44 100 05/17/17 22:15 65 22 126/42 100 05/17/17 22:00 66 05/17/17 22:00 66 24 91/45 100 120/41 05/17/17 21:45 66 24 130/41 100 05/17/17 21:30 66 24 96/46 100 124/41 05/17/17 21:15 68 23 126/41 100 05/17/17 21:00 85 35 149/50 100 05/17/17 20:45 93 26 149/50 99 05/17/17 20:30 97 24 159/53 99 05/17/17 20:30 97 05/17/17 20:30 97 159/53 99 05/17/17 20:30 100 05/17/17 20:19 100 Ventilator 05/17/17 20:14 100 100 05/17/17 18:00 100 100 05/17/17 17:43 98 100 I/O 05/17/17 05/17/17 05/17/17 05/18/17 05/18/17 8/4/17 07:00 15:00 23:00 07:00 15:00 23:00 Intake Total 296 ml 714 ml 189 ml 743 ml 926 ml Output Total 400 ml 2000 ml 700 ml 625 ml Balance 296 ml 314 ml -1811 ml 43 ml 301 ml Intake Oral 240 ml 480 ml 0 ml IV Total 56 ml 234 ml 129 ml 743 ml 926 ml Other 60 ml Output Urine Total 400 ml 2000 ml 700 ml 625 ml # Voids 2 # Bowel Movements 0 0 Physical Exam GENERAL: Intubated, sedated SKIN: Warm and dry. HEAD: Normocephalic. EYES: No scleral icterus. No injection or drainage. NECK: Supple, trachea midline. No JVD or lymphadenopathy. CARDIOVASCULAR: Regular rate and rhythm without murmurs, gallops, or rubs. RESPIRATORY: Breath sounds equal bilaterally. No accessory muscle use. GASTROINTESTINAL: Abdomen soft, non-tender, nondistended. MUSCULOSKELETAL: No cyanosis, or edema. Groin stable, sheaths and pacemaker in place. Laboratory Laboratory Tests Test 05/17/17 05/17/17 05/18/17 05/18/17 17:35 22:41 04:02 05:33 Blood Gas Puncture Site RT RADIAL RT RADIAL Blood Gas Patient Temperature 98.6 98.6 Blood Gas HCO3 19 mmol/L 23 mmol/L Blood Gas Base Excess -6.1 mmol/L -0.4 mmol/L Blood Gas Oxygen Saturation 88 % 83 % Arterial Blood pH 7.30 7.44 Arterial Blood Partial 40 mmHg 35 mmHg Pressure CO2 Arterial Blood Partial 73 mmHg 53 mmHg Pressure O2 Arterial Blood Oxygen Content 12.3 Vol % 12.7 Vol % Arterial Blood 1.5 % 1.5 % Carboxyhemoglobin Arterial Blood Methemoglobin 1.3 % 1.0 % Blood Gas Hemoglobin 9.8 G/DL 10.8 G/DL Oxygen Delivery Device VENTILATOR VENTILATOR Blood Gas Ventilator Setting AC/VT500/R18/P5 VOLUME AC 20/500/+5 Blood Gas Inspired Oxygen 100 % 60 % Activated Partial 59.2 SEC 42.1 SEC Thromboplast Time White Blood Count 11.2 TH/MM3 Red Blood Count 2.90 MIL/MM3 Hemoglobin 8.3 GM/DL Hematocrit 24.3 % Mean Corpuscular Volume 84.0 FL Mean Corpuscular Hemoglobin 28.6 PG Mean Corpuscular Hemoglobin 34.0 % Concent Red Cell Distribution Width 15.8 % Platelet Count 160 TH/MM3 Mean Platelet Volume 8.2 FL Neutrophils (%) (Auto) 88.0 % Lymphocytes (%) (Auto) 5.8 % Monocytes (%) (Auto) 6.0 % Eosinophils (%) (Auto) 0.0 % Basophils (%) (Auto) 0.2 % Neutrophils # (Auto) 9.9 TH/MM3 Lymphocytes # (Auto) 0.6 TH/MM3 Monocytes # (Auto) 0.7 TH/MM3 Eosinophils # (Auto) 0.0 TH/MM3 Basophils # (Auto) 0.0 TH/MM3 CBC Comment DIFF FINAL Differential Comment Sodium Level 136 MEQ/L Potassium Level 3.6 MEQ/L Chloride Level 102 MEQ/L Carbon Dioxide Level 25.5 MEQ/L Anion Gap 9 MEQ/L Blood Urea Nitrogen 20 MG/DL Creatinine 1.35 MG/DL Estimat Glomerular Filtration 38 ML/MIN Rate Random Glucose 169 MG/DL Calcium Level 7.8 MG/DL Phosphorus Level 2.9 MG/DL Magnesium Level 1.4 MG/DL Total Bilirubin 0.7 MG/DL Aspartate Amino Transf 24 U/L (AST/SGOT) Alanine Aminotransferase 38 U/L (ALT/SGPT) Alkaline Phosphatase 46 U/L Total Creatine Kinase 122 U/L Creatine Kinase MB 4.7 NG/ML Total Protein 6.4 GM/DL Albumin 2.5 GM/DL Triglycerides Level 134 MG/DL Cholesterol Level 82 MG/DL LDL Cholesterol 27 MG/DL HDL Cholesterol 28.5 MG/DL Cholesterol/HDL Ratio 2.87 RATIO Imaging Last Impressions Chest X-Ray 05/17/17 0000 Signed Impressions: Service Date/Time: May 17:35 - CONCLUSION: 1. ET tube in good position. 2. Increasing left infiltrates and new right lung infiltrates. Arik Cosby MD Assessment and Plan Problem List: (1) Acute CHF (congestive heart failure) (2) NSTEMI (non-ST elevated myocardial infarction) (3) CAD (coronary artery disease) (4) High degree atrioventricular block (5) Respiratory failure (6) PNA (pneumonia) (7) Ischemic cardiomyopathy Assessment and Plan Remains stable p MV PCI. Renal fx stable, continue to monitor. Weaned off dopa, will hold BP meds for now. If stable tomorrow, add low dose carvedilol and lisinopril. Heparin off, will remove pacemaker and sheaths this PM. Rest on the vent overnight, extubate tomorrow if ready. D/w patient's son. Problem Qualifiers (1) PNA (pneumonia): Qualified Code: J18.9 - Pneumonia of left lung due to infectious organism, unspecified part of lung Mg Daly MD May 18, 2017 16:26
[2017-05-18] MEDS ORDERED: RESP: ALBUTEROL 2.5 MG/IPRATROPIUM 0.5 MG NEB (PRN) NEB (16:30)
--- NOTE | 2017-05-18 16:37 | HHI.CCPN ---
Subjective Remarks/Hospital Course 81-year-old very pleasant female with a history of HTN, atrial fibrillation, DM , [place], and CKD stage 3 presented to the ED with complaints of a cough, shortness of breath and chest tightness for the last week. She states she has had a productive cough with white sputum production with increasing shortness of breath. She was admitted to ICU and while in the unit she became significantly bradycardic due to complete heart block, also in respiratory distress and severe hypoxemia. She was emergently intubated and taken to cardiac catheterization lab for retrograde heart catheterization with left ventriculography and selective coronary angiography, angioplasty and stenting of the distal left anterior descending artery and mid left anterior descending artery, and angioplasty and stenting of the proximal/ostial right coronary artery. Also transvenous pacemaker placement. Subjective: 05/18: The patient underwent cardiac stenting yesterday, maintain some intubated, with transvenous pacemaker. Dopamine has been weaned off this afternoon. Plan for CPAP trials with planned extubation in the a.m.. Heparin has been discontinued this afternoon with plans for removal of venous sheath. The patient remains hemodynamically stable. Objective Vital Signs Date Time Temp Pulse Resp B/P Pulse Ox O2 Delivery O2 Flow Rate FiO2 05/18/17 16:00 70 05/18/17 16:00 61 05/18/17 15:49 96 05/18/17 12:00 98.6 20 114/56 134/41 05/18/17 01:03 Ventilator 05/17/17 08:41 3.00 Intake and Output 05/17/17 05/17/17 05/17/17 07:59 15:59 23:59 Intake Total 296 ml 714 ml 189 ml Output Total 400 ml 2000 ml Balance 296 ml 314 ml -1811 ml Result Diagram: 05/18/17 0402 05/18/17 0402 Other Results Laboratory Tests Test 05/17/17 05/18/17 17:35 05:33 Blood Gas Puncture Site RT RADIAL RT RADIAL Blood Gas Patient Temperature 98.6 98.6 Blood Gas HCO3 19 mmol/L 23 mmol/L (22-26) (22-26) Blood Gas Base Excess -6.1 mmol/L -0.4 mmol/L (-2-2) (-2-2) Blood Gas Oxygen Saturation 88 % (90-100) 83 % (90-100) Arterial Blood pH 7.30 7.44 (7.380-7.420) (7.380-7.420) Arterial Blood Partial 40 mmHg (38-42) 35 mmHg (38-42) Pressure CO2 Arterial Blood Partial 73 mmHg 53 mmHg Pressure O2 (61-120) (61-120) Arterial Blood Oxygen Content 12.3 Vol % 12.7 Vol % (12.0-20.0) (12.0-20.0) Arterial Blood 1.5 % (0-4) 1.5 % (0-4) Carboxyhemoglobin Arterial Blood Methemoglobin 1.3 % (0-2) 1.0 % (0-2) Blood Gas Hemoglobin 9.8 G/DL 10.8 G/DL (12.0-16.0) (12.0-16.0) Oxygen Delivery Device VENTILATOR VENTILATOR Blood Gas Ventilator Setting AC/VT500/R18/P5 VOLUME AC 20/500/+5 Blood Gas Inspired Oxygen 100 % 60 % Objective Remarks GENERAL: Well-nourished, well-developed patient, intubated and sedated SKIN: Warm and dry. HEAD: Normocephalic. EYES: No scleral icterus. No injection or drainage. NECK: Supple, trachea midline. No JVD or lymphadenopathy. CARDIOVASCULAR: Regular rate and rhythm without murmurs, gallops, or rubs. RESPIRATORY: Breath sounds equal bilaterally. No accessory muscle use. GASTROINTESTINAL: Abdomen soft, protuberant ,non-tender, nondistended. MUSCULOSKELETAL: No cyanosis, or edema. Right venous sheath BACK: Nontender without obvious deformity. NEURO EXAM: GCS: M1 V1E1 Mental Status: The patient is sedated and intubated Cranial Nerves: Unable to obtain patient is sedated and intubated Reflexes: Biceps, patellar, and Achilles are 2/4 bilaterally. No clonus. Sensation: Unobtainable due to sedation and intubation Motor: Good muscle tone. Cerebellar: Ggcgty-uc-ammj and abec-kj-aukl unable to examine A/P Assessment and Plan Respiratory failure - Intubated for an airway protection, and for CPAP trials in the a.m. - Continue mechanical ventilation - Start weaning when hemodynamically and neurologically stable - Vent bundle - [facility] Coronary artery disease - Status post angioplasty and stents of the distal LAD and mid left anterior descending artery, and angioplasty and stenting of the proximal/ostial right coronary artery Resume in a.m.: - Aspirin - Brilinta - Atorvastatin - Cardiology following Dr. Daly, post removal of venous sheath today plan to start low-dose carvedilol and lisinopril in a.m. AV block - Status post temporary transvenous pacemaker placement - Monitor changes after revascularization Diabetes mellitus - Insulin sliding scale Hypertension - Clonidine and hydralazine when necessary Chronic kidney disease stage 3 - Gentle IV fluid hydration - Monitor I's and O - Electrolytes and creatinine levels DVT GI prophylaxis - Teds SCDs -Heparin infusion post, cardiovascular intervention. Plan to discontinue with removal of venous sheath - Pepcid Critical Care: This patient remains critically ill with one or more organ systems which are or may become a threat to life. I have spent in excess of 30 minutes discontinuously in the care and management of this patient. This time is exclusive of procedures, and includes, but is not limited to, evaluation of the patient, review of the medical record, discussions with family, consultants, nursing staff, or respiratory therapy, and documentation in the medical record. Physician María Elena Kirkpatrick MD May 18, 2017 16:36
--- NOTE | 2017-05-18 18:40 | ECHRPT ---
Indication: Heart failure, unspecified CONCLUSIONS . The left ventricular systolic function is normal with an estimated ejection fraction in the range of 60-65%. There is assymetric septal hypertrophy. Trace mitral valve regurgitation. BP: 134 / 63 HR: 58 Rhythm: MEASUREMENTS (Male / Female) Normal Values Technical Quality:Fair 2D ECHO LV Diastolic Diameter PLAX 4.2 cm 4.2 - 5.9 / 3.9 - 5.3 cm LV Systolic Diameter PLAX 3.0 cm IVS Diastolic Thickness 1.6 cm 0.6 - 1.0 / 0.6 - 0.9 cm LVPW Diastolic Thickness 1.1 cm 0.6 - 1.0 / 0.6 - 0.9 cm LV Relative Wall Thickness 0.6 M-MODE Aortic Root Diameter MM 2.8 cm LA Systolic Diameter MM 4.0 cm LA Ao Ratio MM 1.4 AV Cusp Separation MM 1.5 cm DOPPLER Mitral E Point Velocity 144.0 cm/s Mitral A Point Velocity 96.9 cm/s Mitral E to A Ratio 1.5 LV E' Lateral Velocity 8.7 cm/s Mitral E to LV E' Lateral Ratio 16.6 FINDINGS LEFT VENTRICLE Normal left ventricular size is normal, There is assymetric septal hypertrophy. . The left ventricular systolic function is normal with an estimated ejection fraction in the range of 60-65%. RIGHT VENTRICLE Normal right ventricular size and systolic function. LEFT ATRIUM The left atrial size is mildly dilated. RIGHT ATRIUM The right atrial size is normal. ATRIAL SEPTUM The interatrial septum not well visualized. AORTA The aortic root and proximal ascending aorta are not well visualized. MITRAL VALVE Structurally normal mitral valve. Trace mitral valve regurgitation. No mitral valve stenosis. AORTIC VALVE Trileaflet aortic valve. No aortic valve stenosis or regurgitation. TRICUSPID VALVE Structurally normal tricuspid valve. No tricuspid valve stenosis or regurgitation. PULMONARY VALVE The pulmonary valve is not well visualized. VESSELS The inferior vena cava is normal in size. PERICARDIUM No pericardial effusion. Matthew Kay DO (Electronically Signed) Final Date:18 May 2017 18:39
[2017-05-18] MEDS: LISINOPRIL 10 MG TAB PO SCH (19:15)
[2017-05-18] MEDS: CARVEDILOL 6.25 MG TAB PO SCH (19:15)
[2017-05-18] MEDS: CHLORHEXIDINE 0.12% (ORAL KIT) 15 ML CUP MT SCH (20:15)
--- NOTE | 2017-05-18 20:47 | RADRPT ---
EXAM DATE/TIME: 05/18/2017 20:08 [facility] COMPARISON: CHEST SINGLE AP, May 17, 2017, 17:35. INDICATIONS : Respiratory Disease. MEDICAL HISTORY : Diabetes mellitus type II. Myocardial infarction. Hypercholesterolemia. Hypertension. GERD. SURGICAL HISTORY : Cardiac stent. ENCOUNTER: Subsequent ACUITY: 2 days PAIN SCORE: Non-responsive. LOCATION: Bilateral chest FINDINGS: Bilateral patchy areas of consolidative infiltrate in the mid and lower lungs bilaterally are similar in distribution and severity. Endotracheal tube tip above the josiah. Interval placement of gastri c tube which traverses the [id number]-ln-ywem. CONCLUSION: Bilateral airspace infiltrates, stable in severity. Arik Cosby MD on May 18, 2017 at 20:44 Board Certified Radiologist. This report was verified electronically.
[2017-05-18] MEDS: ATORVASTATIN 10 MG TAB PO SCH (21:16)
[2017-05-18] MEDS ORDERED: ALBUMIN HUMAN 25% 25 GM/100 ML BAGP IV ONE (23:15)
[2017-05-18] MEDS ORDERED: BUMETANIDE INJ 1 MG/4 ML VIAL IV PUSH ONE (23:15)
[2017-05-18] MEDS ORDERED: POTASSIUM CHLORIDE 25 MEQ EFFERVESCENT TAB PO ONE (23:30)
[2017-05-18] MEDS: CEFEPIME INJ 2,000 MG in SODIUM CHLORIDE 0.9% INJ 100 ML IV SCH (23:30)
[2017-05-18] MEDS: RESP: ALBUTEROL 2.5 MG/IPRATROPIUM 0.5 MG NEB (SCH) NEB (23:41)
[2017-05-19] VITALS (37 sets, daily range): BP systolic 115–201; BP diastolic 55–88; PULSE 54–105; RESP 20–42; TEMP 98.1–99; O2SAT 89–100
[2017-05-19] MEDS: PROPOFOL 1000 MG/100 ML IV SCH (03:48)
[2017-05-19] MEDS: CHLORHEXIDINE GLUCONATE 2 % 1 PACK (2 CLOTHS)(taper/protocol) TOPICAL SCH (03:48)
[2017-05-19] MEDS: RESP: ALBUTEROL 2.5 MG/IPRATROPIUM 0.5 MG NEB (SCH) NEB ×4 (04:03→20:02)
[2017-05-19 05:27] LABS: HEMATOCRIT 23.6 % (35.0-46.0); MEAN CELL VOLUME 85.4 FL (80.0-100.0); MEAN CORPUSCULAR HEMOGLOBIN 27.7 PG (27.0-34.0); MEAN CORPUSCULAR HGB CONC 32.4 % (32.0-36.0); PLATELET COUNT 141 TH/MM3 (150-450); RED BLOOD COUNT 2.77 MIL/MM3 (4.00-5.30); REVIEW FLAG FINAL; WHITE BLOOD COUNT 8.2 TH/MM3 (4.0-11.0)
[2017-05-19 05:47] LABS: BICARBONATE 22.5 MEQ/L (21.0-32.0); MAGNESIUM 1.7 MG/DL (1.5-2.5); POTASSIUM 3.3 MEQ/L (3.5-5.1)
[2017-05-19 06:19] LABS: APTT (PATIENT) 33.9 SEC (24.3-30.1)
--- NOTE | 2017-05-19 06:38 | RADRPT ---
EXAM DATE/TIME: 05/19/2017 04:50 [facility] COMPARISON: CHEST SINGLE AP, May 18, 2017, 20:08. INDICATIONS : Respiratory status. MEDICAL HISTORY : None. SURGICAL HISTORY : None. ENCOUNTER: Subsequent ACUITY: 4 - 6 days PAIN SCORE: Non-responsive. LOCATION: Bilateral chest FINDINGS: The cardiac silhouette is normal in transverse diameter. Support lines and tubes are in satisfactory position. There is patchy alveolar disease bilaterally compatible with edema or pneumonia. This demon strates cavitation on the left. A small left sided effusion is present. CONCLUSION: 1. Bilateral pneumonia with cavitation on the left. The findings are similar to the prior exam. Chano Bullock MD on May 19, 2017 at 6:36 Board Certified Radiologist. This report was verified electronically.
[2017-05-19] MEDS ORDERED: POTASSIUM CHLOR 40 MEQ PREMIX 100 ML IV ONE (07:45)
[2017-05-19] MEDS: LEVOFLOXACIN 750 MG PREMIX INJ 150 ML IV SCH (08:24)
[2017-05-19] MEDS: POTASSIUM CHLOR 20 MEQ PREMIX 100 ML IV SCH ×2 (08:24→09:55)
[2017-05-19] MEDS: MAGNESIUM SULFATE 1 GM PREMIX 100 ML IV SCH ×2 (08:24→09:55)
[2017-05-19] MEDS: TICAGRELOR 90 MG TAB PO SCH ×2 (08:25→22:13)
[2017-05-19] MEDS: hydrALAZINE HCL 25 MG TAB PO SCH ×3 (08:25→18:00)
[2017-05-19] MEDS: ASPIRIN 81 MG CHEW TAB PO SCH (08:25)
[2017-05-19] MEDS: CARVEDILOL 6.25 MG TAB PO SCH ×2 (08:25→22:12)
[2017-05-19] MEDS: cloNIDine HCL 0.1 MG TAB PO SCH ×2 (08:26→22:12)
[2017-05-19] MEDS: busPIRone HCL 10 MG TAB PO SCH ×2 (08:26→22:12)
[2017-05-19] MEDS: SODIUM CHLORIDE 0.9% FLUSH 10 ML FLUSH IV FLUSH SCH ×2 (08:27→22:48)
[2017-05-19] MEDS: CHLORHEXIDINE 0.12% (ORAL KIT) 15 ML CUP MT SCH ×2 (08:27→22:48)
[2017-05-19] MEDS ORDERED: ATORVASTATIN 80 MG TAB PO SCH (09:00)
[2017-05-19] MEDS: DEXMEDETOMIDINE INJ 200 MCG in SODIUM CHLORIDE 0.9% INJ 50 ML IV SCH ×4 (11:25→20:43)
[2017-05-19] MEDS: CEFEPIME INJ 2,000 MG in SODIUM CHLORIDE 0.9% INJ 100 ML IV SCH (11:26)
--- NOTE | 2017-05-19 14:31 | PD.CARD.PN ---
Subjective Subjective Remarks Patient remains intubated and sedated. (Patricia Link) Objective Medications Current Medications Medications (Trade) Dose Ordered Sig/Renaldo Route Start Time Stop Time Status Last Admin (Heparin Inj) 5,000 units UNSCH PRN IV 05/17/17 06:00 Hold Heparin Sodium (Porcine) 2500 units 2,500 units UNSCH PRN IV 05/17/17 06:00 Hold (Heparin-D5W Inj) 250 ml @ 0 mls/hr TITRATE IV 05/17/17 00:00 Hold 05/17/17 00:46 (NS Flush) 2 ml UNSCH PRN IV FLUSH 05/17/17 00:30 (NS Flush) 2 ml BID IV FLUSH 05/17/17 09:00 05/19/17 08:27 (Narcan Inj) 0.4 mg UNSCH PRN IV 05/17/17 00:30 Miscellaneous Information Patient in critical care unit? Ass... [id number] .XX 05/17/17 02:45 (Chlorhexidine 2% Cloth) 3 pack DAILY@04 TOPICAL 05/17/17 04:00 05/21/17 04:01 05/19/17 03:48 (Chlorhexidine 2% Cloth) 3 pack UNSCH PRN TOPICAL 05/17/17 02:45 05/22/17 02:34 (Norvasc) 5 mg BID PO 05/17/17 09:00 Hold 05/17/17 07:46 (Buspar) 30 mg BID PO 05/17/17 09:00 05/19/17 08:26 (Catapres) 0.1 mg BID PO 05/17/17 09:00 05/19/17 08:26 (Cardizem Cd) 240 mg DAILY PO 05/17/17 09:00 Hold 05/17/17 07:48 (Apresoline) 10 mg TID PO 05/17/17 09:00 05/19/17 12:31 (Glucophage) 750 mg BIDPC PO 05/17/17 09:00 Hold 05/17/17 16:32 (Cozaar) 100 mg DAILY PO 05/17/17 09:00 Hold 05/17/17 07:47 (Hydrodiuril) 12.5 mg DAILY PO 05/17/17 09:00 Hold 05/17/17 07:48 Miscellaneous 1 ea 1 ea UNSCH PRN OTHER 05/17/17 05:30 (Levaquin 750 Mg Premix Inj) 150 ml @ 100 mls/hr Q48H IV 05/19/17 08:00 05/19/17 08:24 (Nitrostat Sl) 0.4 mg Q5M PRN SL 05/17/17 09:15 05/17/17 09:28 (Xanax) 0.25 mg Q8H PRN PO 05/17/17 10:00 05/17/17 16:43 (Tessalon) 100 mg TID PRN PO 05/17/17 09:15 05/17/17 16:43 (Aspirin Chew) 81 mg DAILY PO 05/18/17 09:00 05/19/17 08:25 (Brilinta) 90 mg BID PO 05/17/17 21:00 05/19/17 08:25 Atorvastatin Calcium 80 mg 80 mg HS PO 05/17/17 21:00 05/18/17 21:16 Midazolam HCl 100 ml @ 0 mls/hr TITRATE IV 05/17/17 22:00 05/18/17 13:16 Propofol 100 ml @ 0 mls/hr TITRATE IV 05/18/17 09:15 05/19/17 03:48 (DOPamine INJ PREMIX) 500 ml @ 0 mls/hr TITRATE IV 05/18/17 09:15 (Tears Naturale Opth Soln) 1 drop Q4H PRN EACH EYE 05/18/17 16:15 (Peridex 0.12% Liq) 15 ml BID@08,20 MT 05/18/17 20:00 05/19/17 08:27 (Prinivil) 10 mg Q24H PO 05/18/17 19:15 Carvedilol 6.25 mg 6.25 mg BID PO 05/18/17 19:15 05/19/17 08:25 Cefepime HCl 2000 mg/Sodium Chloride 100 ml @ 200 mls/hr Q12H IV 05/19/17 00:00 05/19/17 11:26 (Precedex Inj/NS Inj) 52 ml @ 0 mls/hr TITRATE IV 05/19/17 07:45 05/19/17 13:22 Vital Signs / I&O Vital Signs Date Time Temp Pulse Resp B/P Pulse Ox O2 Delivery O2 Flow Rate FiO2 05/19/17 13:30 55 20 119/56 97 05/19/17 13:00 56 20 124/61 96 05/19/17 12:30 55 20 127/59 96 05/19/17 12:00 98.3 58 20 124/60 96 05/19/17 12:00 58 05/19/17 12:00 40 05/19/17 11:55 96 40 05/19/17 11:30 62 20 134/61 98 05/19/17 11:00 60 20 132/62 97 05/19/17 10:00 66 21 135/61 97 05/19/17 10:00 66 05/19/17 09:30 64 20 119/58 96 05/19/17 09:00 89 26 148/68 96 05/19/17 08:52 97 40 05/19/17 08:45 85 30 149/66 96 05/19/17 08:30 71 22 143/64 98 05/19/17 08:15 72 21 146/56 99 05/19/17 08:00 67 05/19/17 08:00 98.8 67 20 141/64 98 05/19/17 08:00 40 05/19/17 07:45 74 20 146/67 99 05/19/17 07:30 75 20 144/67 98 05/19/17 07:15 75 21 144/66 99 05/19/17 07:00 75 20 141/65 98 05/19/17 06:00 78 05/19/17 04:03 97 40 05/19/17 04:00 40 05/19/17 04:00 99.0 73 20 141/65 98 05/19/17 04:00 73 05/19/17 02:00 70 05/19/17 00:00 40 05/19/17 00:00 98.8 69 21 115/55 96 05/19/17 00:00 69 05/18/17 23:41 97 40 05/18/17 22:00 64 05/18/17 20:00 76 05/18/17 20:00 99.9 76 24 131/60 93 Arterial Line 05/18/17 20:00 40 05/18/17 19:19 93 40 05/18/17 18:00 76 05/18/17 16:00 70 05/18/17 16:00 66 05/18/17 16:00 99.2 66 22 128/62 94 150/45 05/18/17 16:00 61 05/18/17 15:49 96 40 I/O 05/18/17 05/18/17 05/18/17 05/19/17 05/19/17 05/19/17 07:00 15:00 23:00 07:00 15:00 23:00 Intake Total 743 ml 926 ml 1133 ml 303 ml Output Total 700 ml 625 ml 550 ml 1800 ml Balance 43 ml 301 ml 583 ml -1497 ml Intake Oral 0 ml IV Total 743 ml 926 ml 1073 ml 243 ml Other 60 ml 60 ml Output Urine Total 700 ml 625 ml 550 ml 1800 ml # Bowel Movements 0 0 0 Physical Exam GENERAL: Elderly female intubated and sedated, son at bedside SKIN: Warm and dry. HEAD: Normocephalic. EYES: No scleral icterus. No injection or drainage. NECK: Supple, trachea midline. CARDIOVASCULAR: Regular rate and rhythm RESPIRATORY: Breath sounds equal bilaterally. No accessory muscle use. Intubated FiO2 40% GASTROINTESTINAL: Abdomen soft, non-tender, nondistended. MUSCULOSKELETAL: No cyanosis, or edema. BACK: Nontender without obvious deformity. Laboratory Laboratory Tests Test 05/19/17 05/19/17 05/19/17 04:08 08:14 13:10 White Blood Count 8.2 TH/MM3 Red Blood Count 2.77 MIL/MM3 Hemoglobin 7.7 GM/DL Hematocrit 23.6 % Mean Corpuscular Volume 85.4 FL Mean Corpuscular Hemoglobin 27.7 PG Mean Corpuscular Hemoglobin 32.4 % Concent Red Cell Distribution Width 16.0 % Platelet Count 141 TH/MM3 Mean Platelet Volume 8.0 FL Activated Partial 33.9 SEC Thromboplast Time Sodium Level 143 MEQ/L Potassium Level 3.3 MEQ/L Chloride Level 109 MEQ/L Carbon Dioxide Level 22.5 MEQ/L Anion Gap 12 MEQ/L Blood Urea Nitrogen 14 MG/DL Creatinine 1.16 MG/DL Estimat Glomerular Filtration 45 ML/MIN Rate Random Glucose 116 MG/DL Calcium Level 7.6 MG/DL Phosphorus Level 2.5 MG/DL Magnesium Level 1.7 MG/DL Blood Type A POSITIVE A POSITIVE Antibody Screen NEGATIVE Crossmatch Leukocyte-Reduced Red Blood Cells Blood Bank Comment Imaging Last 72 hours Impressions Chest X-Ray 05/19/17 0600 Signed Impressions: Service Date/Time: Friday, May 19, 2017 04:50 - CONCLUSION: 1. Bilateral pneumonia with cavitation on the left. The findings are similar to the prior exam. Chano Bullock MD Chest X-Ray 05/18/17 0000 Signed Impressions: Service Date/Time: Thursday, May 18, 2017 20:08 - CONCLUSION: Bilateral airspace infiltrates, stable in severity. Arik Cosby MD Chest X-Ray 05/17/17 0000 Signed Impressions: Service Date/Time: May 17:35 - CONCLUSION: 1. ET tube in good position. 2. Increasing left infiltrates and new right lung infiltrates. Arik Cosby MD Chest X-Ray 05/16/174 Signed Impressions: Service Date/Time: Tuesday, May 16, 2017 23:22 - CONCLUSION: Consolidative opacity in the left perihilar region the left lung base most characteristic of pneumonia. Bandar Pruitt MD (Patricia Link) Assessment and Plan Problem List: (1) Acute CHF (congestive heart failure) (2) NSTEMI (non-ST elevated myocardial infarction) (3) CAD (coronary artery disease) (4) High degree atrioventricular block (5) Respiratory failure (6) PNA (pneumonia) (7) Ischemic cardiomyopathy Assessment and Plan Continue current therapy Dr Daly will follow up on Sunday Patient seen and evaluated by Dr. Lim (Patricia Link) Assessment and Plan The exam, history, and the medical decision-making described in the above note were completed with the assistance of the mid-level provider. I reviewed and agree with the findings presented. I attest that I had a [id number] encounter with the patient on the same day, and personally performed and documented my assessment and findings in the medical record,planning pulmonary lavage still intubated (Susanne Lim MD) Problem Qualifiers (1) PNA (pneumonia): Qualified Code: J18.9 - Pneumonia of left lung due to infectious organism, unspecified part of lung Patricia Link May 19, 2017 14:31 Susanne Lim MD May 20, 2017 17:06
[2017-05-19] MEDS ORDERED: FUROSEMIDE 20 MG/2 ML VIAL IV PUSH ONE (17:15)
[2017-05-19] MEDS: LISINOPRIL 10 MG TAB PO SCH (18:04)
--- NOTE | 2017-05-19 18:46 | HHI.CCPN ---
Subjective Remarks/Hospital Course 81-year-old very pleasant female with a history of HTN, atrial fibrillation, DM , [place], and CKD stage 3 presented to the ED with complaints of a cough, shortness of breath and chest tightness for the last week. She states she has had a productive cough with white sputum production with increasing shortness of breath. She was admitted to ICU and while in the unit she became significantly bradycardic due to complete heart block, also in respiratory distress and severe hypoxemia. She was emergently intubated and taken to cardiac catheterization lab for retrograde heart catheterization with left ventriculography and selective coronary angiography, angioplasty and stenting of the distal left anterior descending artery and mid left anterior descending artery, and angioplasty and stenting of the proximal/ostial right coronary artery. Also transvenous pacemaker placement. Subjective: 05/18: The patient underwent cardiac stenting yesterday, maintain some intubated, with transvenous pacemaker. Dopamine has been weaned off this afternoon. Plan for CPAP trials with planned extubation in the a.m.. Heparin has been discontinued this afternoon with plans for removal of venous sheath. The patient remains hemodynamically stable. 05/19: Femoral sheath with transvenous pacemaker removed last evening. Hemodynamically stable. Carvedilol and lisinopril initiated this a.m.. Patient sedation change to Precedex in anticipation for possible extubation. The patient has tolerated CPAP trials greater than 12 hours, however failed SBT this evening. Patient's hemoglobin was noted to be 7.7 this a.m. patient received 1 unit of packed red blood cells CBC post transfusion pending. Objective Vital Signs Date Time Temp Pulse Resp B/P Pulse Ox O2 Delivery O2 Flow Rate FiO2 05/19/17 18:00 59 05/19/17 16:40 40 05/19/17 16:30 25 134/60 95 05/19/17 16:00 98.1 05/18/17 01:03 Ventilator 05/17/17 08:41 3.00 Intake and Output 05/18/17 05/18/17 05/19/17 08:00 16:00 00:00 Intake Total 743 ml 926 ml 1133 ml Output Total 700 ml 625 ml 550 ml Balance 43 ml 301 ml 583 ml Result Diagram: 05/19/17 0408 05/19/17 0408 Objective Remarks GENERAL: Well-nourished, well-developed patient, intubated and sedated, with decrease in sedation patient gets extremely anxious SKIN: Warm and dry. HEAD: Normocephalic. EYES: No scleral icterus. No injection or drainage. NECK: Supple, trachea midline. No JVD or lymphadenopathy. CARDIOVASCULAR: Regular rate and rhythm without murmurs, gallops, or rubs. RESPIRATORY: Breath sounds equal bilaterally. No accessory muscle use. GASTROINTESTINAL: Abdomen soft, protuberant ,non-tender, nondistended. MUSCULOSKELETAL: No cyanosis, or edema. BACK: Nontender without obvious deformity. NEURO EXAM: GCS: M1 V1E1 Mental Status: The patient is sedated and intubated Cranial Nerves: Unable to obtain patient is sedated and intubated Reflexes: Biceps, patellar, and Achilles are 2/4 bilaterally. No clonus. Sensation: Unobtainable due to sedation and intubation Motor: Good muscle tone. Cerebellar: [id number] and vbfx-ht-[id number] unable to examine A/P Assessment and Plan Respiratory failure - Intubated for an airway protection, and for CPAP trials to repeat in the a.m. , currently on Precedex infusion for ventilator synchrony - Continue mechanical ventilation - Start weaning when hemodynamically and neurologically stable - Vent bundle - [facility] Coronary artery disease - Status post angioplasty and stents of the distal LAD and mid left anterior descending artery, and angioplasty and stenting of the proximal/ostial right coronary artery Resume in a.m.: - Aspirin - Brilinta - Atorvastatin - Cardiology following Dr. Daly, post removal of venous sheath today plan to start low-dose carvedilol and lisinopril initiated 05/19 AV block - Status post temporary transvenous pacemaker placement-removed 05/18 - Monitor changes after revascularization Diabetes mellitus - Insulin sliding scale Hypertension - Clonidine and hydralazine when necessary Chronic kidney disease stage 3 - Gentle IV fluid hydration - Monitor I's and O - Electrolytes and creatinine levels DVT GI prophylaxis - Teds SCDs - Pepcid Critical Care: This patient remains critically ill with one or more organ systems which are or may become a threat to life. I have spent in excess of 30 minutes discontinuously in the care and management of this patient. This time is exclusive of procedures, and includes, but is not limited to, evaluation of the patient, review of the medical record, discussions with family, consultants, nursing staff, or respiratory therapy, and documentation in the medical record. Physician María Elena Kirkpatrick MD May 19, 2017 18:46
[2017-05-19] MEDS ORDERED: POTASSIUM CHLORIDE 25 MEQ EFFERVESCENT TAB PO ONE (20:00)
[2017-05-19] MEDS ORDERED: BUMETANIDE INJ 1 MG/4 ML VIAL IV PUSH ONE (20:00)
[2017-05-19] MEDS ORDERED: PROPOFOL 500 MG/50 ML INJ 50 ML ONE (20:17)
[2017-05-19] MEDS ORDERED: PROPOFOL 1000 MG/100 ML IV SCH (21:00)
[2017-05-19 21:58] LABS: HEMATOCRIT 27.3 % (35.0-46.0); MEAN CORPUSCULAR HEMOGLOBIN 27.9 PG (27.0-34.0); MEAN CORPUSCULAR HGB CONC 32.9 % (32.0-36.0); PLATELET COUNT 165 TH/MM3 (150-450); RED BLOOD COUNT 3.21 MIL/MM3 (4.00-5.30); RED CELL DISTRIBUTION WIDTH 15.7 % (11.6-17.2); REVIEW FLAG FINAL
[2017-05-19] MEDS: HEPARIN SODIUM - SQ 10,000 UNITS/ML VIAL SQ SCH (22:12)
[2017-05-19] MEDS: ATORVASTATIN 10 MG TAB PO SCH (22:13)
[2017-05-20] VITALS (45 sets, daily range): BP systolic 116–156; BP diastolic 56–68; PULSE 51–69; RESP 20–33; TEMP 98.7–100.7; O2SAT 90–100
[2017-05-20] MEDS: CEFEPIME INJ 2,000 MG in SODIUM CHLORIDE 0.9% INJ 100 ML IV SCH ×2 (00:51→11:54)
[2017-05-20] MEDS: DEXMEDETOMIDINE INJ 200 MCG in SODIUM CHLORIDE 0.9% INJ 50 ML IV SCH ×9 (03:39→21:35)
[2017-05-20] MEDS: RESP: ALBUTEROL 2.5 MG/IPRATROPIUM 0.5 MG NEB (SCH) NEB ×4 (03:56→20:51)
[2017-05-20] MEDS: CHLORHEXIDINE GLUCONATE 2 % 1 PACK (2 CLOTHS)(taper/protocol) TOPICAL SCH (04:00)
--- NOTE | 2017-05-20 04:47 | RADRPT ---
EXAM DATE/TIME: 05/20/2017 03:36 [facility] COMPARISON: CHEST SINGLE AP, May 19, 2017, 4:50. INDICATIONS : Respiratory failure post STEMI MEDICAL HISTORY : None. SURGICAL HISTORY : None. ENCOUNTER: Subsequent ACUITY: 1 week PAIN SCORE: Non-responsive. LOCATION: Bilateral chest FINDINGS: The cardiac silhouette is normal in transverse diameter. There is patchy alveolar disease bilaterally compatible with edema or pneumonia. Support lines and tubes are in satisfactory position. CONCLUSION: 1. Patchy alveolar disease characteristic of edema or pneumonia. There has been no significant bauer e when compared to the prior exam. Chano Bullock MD on May 20, 2017 at 4:46 Board Certified Radiologist. This report was verified electronically.
[2017-05-20 07:11] LABS: HEMATOCRIT 28.1 % (35.0-46.0); MEAN CELL VOLUME 85.4 FL (80.0-100.0); MEAN CORPUSCULAR HEMOGLOBIN 28.3 PG (27.0-34.0); MEAN CORPUSCULAR HGB CONC 33.1 % (32.0-36.0); PLATELET COUNT 176 TH/MM3 (150-450); RED BLOOD COUNT 3.29 MIL/MM3 (4.00-5.30); RED CELL DISTRIBUTION WIDTH 15.7 % (11.6-17.2); REVIEW FLAG FINAL; WHITE BLOOD COUNT 8.7 TH/MM3 (4.0-11.0)
[2017-05-20 07:28] LABS: BICARBONATE 23.1 MEQ/L (21.0-32.0); MAGNESIUM 2.3 MG/DL (1.5-2.5); POTASSIUM 4.4 MEQ/L (3.5-5.1)
[2017-05-20] MEDS ORDERED: FUROSEMIDE 20 MG/2 ML VIAL IV PUSH ONE (07:30)
[2017-05-20] MEDS: SODIUM CHLORIDE 0.9% FLUSH 10 ML FLUSH IV FLUSH SCH ×2 (08:32→20:35)
[2017-05-20] MEDS: CHLORHEXIDINE 0.12% (ORAL KIT) 15 ML CUP MT SCH ×2 (08:32→20:33)
[2017-05-20] MEDS: HEPARIN SODIUM - SQ 10,000 UNITS/ML VIAL SQ SCH ×2 (08:32→20:33)
[2017-05-20] MEDS: CARVEDILOL 6.25 MG TAB PO SCH ×2 (08:33→20:33)
[2017-05-20] MEDS: TICAGRELOR 90 MG TAB PO SCH ×2 (08:33→20:33)
[2017-05-20] MEDS: hydrALAZINE HCL 25 MG TAB PO SCH ×3 (08:33→18:03)
[2017-05-20] MEDS: cloNIDine HCL 0.1 MG TAB PO SCH ×2 (08:33→20:33)
[2017-05-20] MEDS: ASPIRIN 81 MG CHEW TAB PO SCH (08:33)
[2017-05-20] MEDS: busPIRone HCL 10 MG TAB PO SCH ×2 (08:33→20:33)
[2017-05-20] MEDS: PROPOFOL 1000 MG/100 ML IV SCH ×2 (11:54→21:35)
[2017-05-20] MEDS ORDERED: MIDAZOLAM HCL 5 MG/ML VIAL (1 ML) ONE (12:57)
[2017-05-20] MEDS ORDERED: MIDAZOLAM HCL 5 MG/ML VIAL (1 ML) IV PUSH STA (13:04)
[2017-05-20] MEDS ORDERED: fentaNYL CITRATE 250 MCG/5 ML AMP IV PUSH STA (13:05)
--- NOTE | 2017-05-20 13:26 | PD.CARD.PN ---
Subjective Subjective Remarks Unable to exam patient. Currently have bedside bronchoscopy. Per the RN, no cardiac events. Remains off pressors. Still intubated and sedated (Patricia Link) Objective Medications Current Medications Medications (Trade) Dose Ordered Sig/Renaldo Route Start Time Stop Time Status Last Admin (NS Flush) 2 ml UNSCH PRN IV FLUSH 05/17/17 00:30 (NS Flush) 2 ml BID IV FLUSH 05/17/17 09:00 05/20/17 08:32 (Narcan Inj) 0.4 mg UNSCH PRN IV 05/17/17 00:30 Miscellaneous Information Patient in critical care unit? Ass... [id number] .XX 05/17/17 02:45 (Chlorhexidine 2% Cloth) 3 pack DAILY@04 TOPICAL 05/17/17 04:00 05/21/17 04:01 05/20/17 04:00 (Chlorhexidine 2% Cloth) 3 pack UNSCH PRN TOPICAL 05/17/17 02:45 05/22/17 02:34 (Norvasc) 5 mg BID PO 05/17/17 09:00 Hold 05/17/17 07:46 (Buspar) 30 mg BID PO 05/17/17 09:00 05/20/17 08:33 (Catapres) 0.1 mg BID PO 05/17/17 09:00 05/20/17 08:33 (Cardizem Cd) 240 mg DAILY PO 05/17/17 09:00 Hold 05/17/17 07:48 (Apresoline) 10 mg TID PO 05/17/17 09:00 05/20/17 11:54 (Glucophage) 750 mg BIDPC PO 05/17/17 09:00 Hold 05/17/17 16:32 (Cozaar) 100 mg DAILY PO 05/17/17 09:00 Hold 05/17/17 07:47 (Hydrodiuril) 12.5 mg DAILY PO 05/17/17 09:00 Hold 05/17/17 07:48 Miscellaneous 1 ea 1 ea UNSCH PRN OTHER 05/17/17 05:30 (Levaquin 750 Mg Premix Inj) 150 ml @ 100 mls/hr Q48H IV 05/19/17 08:00 05/19/17 08:24 (Nitrostat Sl) 0.4 mg Q5M PRN SL 05/17/17 09:15 05/17/17 09:28 (Xanax) 0.25 mg Q8H PRN PO 05/17/17 10:00 05/17/17 16:43 (Tessalon) 100 mg TID PRN PO 05/17/17 09:15 05/17/17 16:43 (Aspirin Chew) 81 mg DAILY PO 05/18/17 09:00 05/20/17 08:33 (Brilinta) 90 mg BID PO 05/17/17 21:00 05/20/17 08:33 (Lipitor) 80 mg HS PO 05/17/17 21:00 05/19/17 22:13 (Tears Naturale Opth Soln) 1 drop Q4H PRN EACH EYE 05/18/17 16:15 (Peridex 0.12% Liq) 15 ml BID@08,20 MT 05/18/17 20:00 05/20/17 08:32 (Prinivil) 10 mg Q24H PO 05/18/17 19:15 05/19/17 18:04 Carvedilol 6.25 mg 6.25 mg BID PO 05/18/17 19:15 05/20/17 08:33 Cefepime HCl 2000 mg/Sodium Chloride 100 ml @ 200 mls/hr Q12H IV 05/19/17 00:00 05/20/17 11:54 (Precedex Inj/NS Inj) 52 ml @ 0 mls/hr TITRATE IV 05/19/17 07:45 05/20/17 10:53 Heparin Sodium (Porcine) 5000 units 5,000 units Q12HR SQ 05/19/17 21:00 05/20/17 08:32 (Diprivan 1000 Mg/100ml Inj) 100 ml @ 0 mls/hr TITRATE IV 05/20/17 11:30 05/20/17 11:54 Vital Signs / I&O Vital Signs Date Time Temp Pulse Resp B/P Pulse Ox O2 Delivery O2 Flow Rate FiO2 05/20/17 12:30 55 21 147/67 98 05/20/17 12:10 98 55 05/20/17 12:00 99.8 53 20 145/67 100 05/20/17 12:00 100 05/20/17 12:00 53 05/20/17 11:30 54 20 146/67 99 05/20/17 11:00 52 20 141/63 98 05/20/17 10:30 51 20 140/64 98 05/20/17 10:00 51 20 135/63 98 05/20/17 10:00 51 05/20/17 09:30 53 20 128/60 99 05/20/17 09:00 55 21 139/65 98 05/20/17 08:31 68 33 137/59 100 05/20/17 08:03 96 55 05/20/17 08:00 60 05/20/17 08:00 55 05/20/17 08:00 98.7 60 23 148/68 97 05/20/17 07:30 60 24 135/63 95 05/20/17 07:00 63 22 139/65 96 05/20/17 06:29 92 60 05/20/17 06:00 64 05/20/17 04:00 40 05/20/17 04:00 99.4 58 27 136/64 96 05/20/17 04:00 58 05/20/17 04:00 98 40 05/20/17 02:00 61 05/20/17 00:00 98.8 63 26 131/59 97 05/20/17 00:00 63 05/20/17 00:00 60 05/19/17 23:53 100 60 05/19/17 22:00 67 05/19/17 20:54 70 05/19/17 20:54 95 70 05/19/17 20:00 98.6 105 42 201/88 89 05/19/17 20:00 95 05/19/17 20:00 35 05/19/17 18:00 59 05/19/17 16:40 40 05/19/17 16:30 59 25 134/60 95 05/19/17 16:09 56 24 131/62 97 05/19/17 16:00 40 05/19/17 16:00 98.1 56 23 131/60 97 05/19/17 16:00 56 05/19/17 15:42 97 40 05/19/17 15:42 40 05/19/17 15:30 57 22 129/59 97 05/19/17 15:00 54 23 124/61 97 05/19/17 14:30 55 23 123/60 97 8/5/17 14:00 57 20 122/60 97 05/19/17 14:00 57 05/19/17 13:30 55 20 119/56 97 I/O 05/19/17 05/19/17 05/19/17 05/20/17 05/20/17 05/20/17 07:00 15:00 23:00 07:00 15:00 23:00 Intake Total 303 ml 896 ml 449 ml 112 ml Output Total 1800 ml 575 ml 775 ml 1100 ml Balance -1497 ml 321 ml -326 ml -988 ml Intake Oral 0 ml IV Total 243 ml 816 ml 117 ml 112 ml Packed Cells 332 ml Other 60 ml 80 ml Output Urine Total 1800 ml 575 ml 775 ml 1100 ml # Bowel Movements 0 0 Physical Exam Unable to exam patient. Bedside bronchoscopy in progress Laboratory Laboratory Tests Test 05/19/17 05/20/17 21:14 06:10 White Blood Count 8.0 TH/MM3 8.7 TH/MM3 Red Blood Count 3.21 MIL/MM3 3.29 MIL/MM3 Hemoglobin 9.0 GM/DL 9.3 GM/DL Hematocrit 27.3 % 28.1 % Mean Corpuscular Volume 85.0 FL 85.4 FL Mean Corpuscular Hemoglobin 27.9 PG 28.3 PG Mean Corpuscular Hemoglobin 32.9 % 33.1 % Concent Red Cell Distribution Width 15.7 % 15.7 % Platelet Count 165 TH/MM3 176 TH/MM3 Mean Platelet Volume 7.8 FL 7.6 FL Sodium Level 142 MEQ/L Potassium Level 4.4 MEQ/L Chloride Level 110 MEQ/L Carbon Dioxide Level 23.1 MEQ/L Anion Gap 9 MEQ/L Blood Urea Nitrogen 21 MG/DL Creatinine 1.34 MG/DL Estimat Glomerular Filtration 38 ML/MIN Rate Random Glucose 125 MG/DL Calcium Level 7.9 MG/DL Phosphorus Level 2.3 MG/DL Magnesium Level 2.3 MG/DL Imaging Last 72 hours Impressions Chest X-Ray 05/20/17 06 Signed Impressions: Service Date/Time: Saturday, May 20, 2017 03:36 - CONCLUSION: 1. Patchy alveolar disease characteristic of edema or pneumonia. There has been no significant change when compared to the prior exam. Chano Bullock MD Chest X-Ray 05/19/17 0600 Signed Impressions: Service Date/Time: Friday, May 19, 2017 04:50 - CONCLUSION: 1. Bilateral pneumonia with cavitation on the left. The findings are similar to the prior exam. Chano Bullock MD Chest X-Ray 05/18/17 0000 Signed Impressions: Service Date/Time: Thursday, May 18, 2017 20:08 - CONCLUSION: Bilateral airspace infiltrates, stable in severity. Arik Cosby MD (Patricia Link) Assessment and Plan Problem List: (1) Acute CHF (congestive heart failure) (2) NSTEMI (non-ST elevated myocardial infarction) (3) CAD (coronary artery disease) (4) High degree atrioventricular block (5) Respiratory failure (6) PNA (pneumonia) (7) Ischemic cardiomyopathy Assessment and Plan Continue current therapy. Patient is stable from a cardiac standpoint. Received Lasix [address] Daly will follow up on Sunday Patient seen and evaluated by Dr. Lim (Patricia Link) Assessment and Plan The exam, history, and the medical decision-making described in the above note were completed with the assistance of the mid-level provider. I reviewed and agree with the findings presented. I attest that I had a [id number] encounter with the patient on the same day, and personally performed and documented my assessment and findings in the medical record. Continue with mechanical ventilation post pulmonary lavage (Susanne Lim MD) Problem Qualifiers (1) PNA (pneumonia): Qualified Code: J18.9 - Pneumonia of left lung due to infectious organism, unspecified part of lung Patricia Link May 20, 2017 13:26 Susanne Lim MD May 20, 2017 17:08
--- NOTE | 2017-05-20 13:46 | PD.PROCEDR ---
Procedure Note Procedure Procedure: Fiberoptic Bronchoscopy Diagnosis: Hypoxia, copious secretions Indications: Hypoxia Consent: Obtained from family Anesthesia: see MAR Description of the Procedure: The patient was sedated and mechanically ventilated. The patient was placed on 100% FIO2 and a volume control mode of ventilation. The fiberoptic bronchoscopy was inserted via [ ]. The trachea, right and left mainstem bronchi, and sub-segmental bronchi were evaluated. The endobronchial anatomy was normal. Findings: Copious yellowish - green thick tenacious secretions, bilateral lobes BAL samples: 2 The patient tolerated the procedure well with no hemodynamic instability or hypoxia. There were no immediate complications noted. At the conclusion of the procedure, the patient was placed back on their pre-procedure ventilatory settings. There was minimal EBL. A chest x-ray has been ordered. I personally performed the procedure. María Elena Pepper MD May 20, 2017 13:46
--- NOTE | 2017-05-20 13:52 | HHI.CCPN ---
Subjective Remarks/Hospital Course 81-year-old very pleasant female with a history of HTN, atrial fibrillation, DM , [place], and CKD stage 3 presented to the ED with complaints of a cough, shortness of breath and chest tightness for the last week. She states she has had a productive cough with white sputum production with increasing shortness of breath. She was admitted to ICU and while in the unit she became significantly bradycardic due to complete heart block, also in respiratory distress and severe hypoxemia. She was emergently intubated and taken to cardiac catheterization lab for retrograde heart catheterization with left ventriculography and selective coronary angiography, angioplasty and stenting of the distal left anterior descending artery and mid left anterior descending artery, and angioplasty and stenting of the proximal/ostial right coronary artery. Also transvenous pacemaker placement. Subjective: 05/18: The patient underwent cardiac stenting yesterday, maintain some intubated, with transvenous pacemaker. Dopamine has been weaned off this afternoon. Plan for CPAP trials with planned extubation in the a.m.. Heparin has been discontinued this afternoon with plans for removal of venous sheath. The patient remains hemodynamically stable. 05/19: Femoral sheath with transvenous pacemaker removed last evening. Hemodynamically stable. Carvedilol and lisinopril initiated this a.m.. Patient sedation change to Precedex in anticipation for possible extubation. The patient has tolerated CPAP trials greater than 12 hours, however failed SBT this evening. Patient's hemoglobin was noted to be 7.7 this a.m. patient received 1 unit of packed red blood cells CBC post transfusion pending. 05/20: Afebrile. Overnight the patient was noted to have thick secretions, and was lavaged 4. The patient had increasing requirements for sedation in oxygenation, CPAP trials were discontinued at 10 PM secondary to thick copious secretions. Plan for fiberoptic bronchoscopy with BAL today. Hemoglobin stable , patient remains hemodynamically stable off all pressors. Objective Vital Signs Date Time Temp Pulse Resp B/P Pulse Ox O2 Delivery O2 Flow Rate FiO2 05/20/17 12:30 55 21 147/67 98 05/20/17 12:10 55 05/20/17 12:00 99.8 05/18/17 01:03 Ventilator 05/17/17 08:41 3.00 Intake and Output 05/19/17 05/19/17 05/19/17 07:59 15:59 23:59 Intake Total 303 ml 896 ml 449 ml Output Total 1800 ml 575 ml 775 ml Balance -1497 ml 321 ml -326 ml Result Diagram: 05/20/1760905/20/17609 Objective Remarks GENERAL: Well-nourished, well-developed patient, intubated and sedated. SKIN: Warm and dry. HEAD: Normocephalic. EYES: No scleral icterus. No injection or drainage. NECK: Supple, trachea midline. No JVD or lymphadenopathy. CARDIOVASCULAR: Regular rate and rhythm without murmurs, gallops, or rubs. RESPIRATORY: Breath sounds equal bilaterally. No accessory muscle use. GASTROINTESTINAL: Abdomen soft, protuberant ,non-tender, nondistended. MUSCULOSKELETAL: No cyanosis, or edema. BACK: Nontender without obvious deformity. NEURO EXAM: GCS: M1 V1E1 Mental Status: The patient is sedated and intubated Cranial Nerves: Unable to obtain patient is sedated and intubated Reflexes: Biceps, patellar, and Achilles are 2/4 bilaterally. No clonus. Sensation: Unobtainable due to sedation and intubation Motor: Good muscle tone. Cerebellar: [id number] and [id number] unable to examine Procedures Fiberoptic bronchoscopy with BAL A/P Assessment and Plan Respiratory failure - Intubated for an airway protection, currently on propofol and Precedex infusions for ventilator synchrony - Continue mechanical ventilation - Start weaning when hemodynamically and neurologically stable - Vent bundle - DuoNeb's care -CPAP trials when clinically indicated Pneumonia left lower lobe, -thick copious tenacious secretions -05/20 fiberoptic bronchoscopy with [id number] culture results -Remains on cefepime and azithromycin (Day 3) -Obtain Legionella, pneumococcal, influenza A and B antigens- F/U results Coronary artery disease - Status post angioplasty and stents of the distal LAD and mid left anterior descending artery, and angioplasty and stenting of the proximal/ostial right coronary artery Resumed 05/19 - Aspirin - Brilinta - Atorvastatin - Cardiology following Dr. Daly, low-dose carvedilol and lisinopril initiated 05/19 AV block - Status post temporary transvenous pacemaker placement-removed 05/18 - Monitor changes after revascularization Diabetes mellitus - Insulin sliding scale, low dose regimen Hypertension - Clonidine and hydralazine when necessary Chronic kidney disease stage 3 - Gentle IV fluid hydration - Monitor I's and O - Electrolytes and creatinine levels DVT GI prophylaxis - Teds SCDs - Pepcid Dispo: Discussed with family, and [employer] at bedside. Critical Care: This patient remains critically ill with one or more organ systems which are or may become a threat to life. I have spent in excess of 35 minutes discontinuously in the care and management of this patient. This time is exclusive of procedures, and includes, but is not limited to, evaluation of the patient, review of the medical record, discussions with family, consultants, nursing staff, or respiratory therapy, and documentation in the medical record. Physician María Elena Kirkpatrick MD May 20, 2017 13:52
--- NOTE | 2017-05-20 14:21 | RADRPT ---
EXAM DATE/TIME: 05/20/2017 13:49 [facility] COMPARISON: CHEST SINGLE AP, May 20, 2017, 3:36. INDICATIONS : Respiratory failure. MEDICAL HISTORY : Myocardial infarction. Hypertension. Diabetes mellitus type 2. SURGICAL HISTORY : ENCOUNTER: Subsequent ACUITY: 1 week PAIN SCORE: Non-responsive. LOCATION: Bilateral chest FINDINGS: Patchy mid and lower lung predominant bilateral infiltrates persist without significant change. No la rge pleural effusion demonstrated. No pneumothorax. Heart size stable upper limits of normal. Endotracheal tube tip is approximately 4 cm above the josiah. Nasogastric tube courses into the stoma ch. CONCLUSION: 1. Patchy bilateral pulmonary infiltrates persist without significant change. David Rodriguez MD on May 20, 2017 at 14:19 Board Certified Radiologist. This report was verified electronically.
--- NOTE | 2017-05-20 16:36 | RADRPT ---
EXAM DATE/TIME: 05/20/2017 15:35 [facility] COMPARISON: No previous studies available for comparison. INDICATIONS : Post bronchoscopy. MEDICAL HISTORY : Myocardial infarction. Hypertension. Diabetes mellitus type 2. SURGICAL HISTORY : None. ENCOUNTER: Initial ACUITY: 1 day PAIN SCORE: Non-responsive. LOCATION: Bilateral chest FINDINGS: Patchy bilateral mid and lower lung infiltrates are again noted, not significantly changed. No large effusion demonstrated. No evidence of pneumothorax. Heart size stable, upper limits of normal. Endotracheal tube tip is approximately 4.5 cm above the josiah. There is a nasogastric tube coursing into the stomach. CONCLUSION: No significant change. Bilateral infiltrates persist. No pneumothorax or other acute complication see n post bronchoscopy. David Rodriguez MD on May 20, 2017 at 16:34 Board Certified Radiologist. This report was verified electronically.
[2017-05-20] MEDS: LISINOPRIL 10 MG TAB PO SCH (18:03)
[2017-05-20] MEDS: ATORVASTATIN 10 MG TAB PO SCH (20:34)
[2017-05-21] VITALS (19 sets, daily range): BP systolic 109–160; BP diastolic 53–71; PULSE 50–93; RESP 20–23; TEMP 99.9–100.8; O2SAT 93–100
[2017-05-21] MEDS: DEXMEDETOMIDINE INJ 200 MCG in SODIUM CHLORIDE 0.9% INJ 50 ML IV SCH ×8 (00:12→23:26)
[2017-05-21] MEDS: CEFEPIME INJ 2,000 MG in SODIUM CHLORIDE 0.9% INJ 100 ML IV SCH ×3 (00:12→23:26)
[2017-05-21] MEDS: CHLORHEXIDINE GLUCONATE 2 % 1 PACK (2 CLOTHS)(taper/protocol) TOPICAL SCH (03:08)
[2017-05-21] MEDS: ACETAMINOPHEN 325 MG TAB PO PRN (04:19)
--- NOTE | 2017-05-21 04:52 | RADRPT ---
EXAM DATE/TIME: 05/21/2017 02:53 [facility] COMPARISON: CHEST SINGLE AP, May 20, 2017, 15:35. INDICATIONS : Short of breath. MEDICAL HISTORY : Myocardial infarction. Hypertension. Diabetes mellitus type 2. SURGICAL HISTORY : None. ENCOUNTER: Subsequent ACUITY: 4 - 6 days PAIN SCORE: 0/10 LOCATION: Bilateral chest FINDINGS: There is improved aeration of the left lower lobe. Persistent air space disease remains however bilat erally. Small bilateral effusions are suspected. Endotracheal tube tip at the inferior margin of the clavicles. NG tube courses beneath the diaphragm. EKG leads are present. Cardiomegaly. Osseous struct ures are intact. CONCLUSION: Improved aeration of the left lower lobe. Sterling Guevara MD on May 21, 2017 at 4:50 Board Certified Radiologist. This report was verified electronically.
[2017-05-21 06:38] LABS: BLOOD GAS BASE EXCESS -3.4 mmol/L (-2-2); BLOOD GAS CARBOXYHEMOGLOBIN 1.6 % (0-4); BLOOD GAS HCO3 20 mmol/L (22-26); BLOOD GAS METHEMOGLOBIN 1.1 % (0-2); BLOOD GAS O2 HGB SATURATION 96 % (90-100); BLOOD GAS OXYGEN CONTENT 11.4 Vol % (12.0-20.0); BLOOD GAS PCO2 30 mmHg (38-42); BLOOD GAS PO2 114 mmHg (61-120); BLOOD GAS TOTAL HGB 8.3 G/DL (12.0-16.0); CRITICAL VALUE NO; DRAW SITE RT RADIAL; FIO2 50 %; NUMBER OF ARTERIAL PUNCTURES 1; OXYGEN DEVICE VENTILATOR; STAT YES; TEMP CORR TO 98.6; ULNAR PULSE PRESENT; VENT SETTINGS AC20/500/+5
[2017-05-21] MEDS: CHLORHEXIDINE 0.12% (ORAL KIT) 15 ML CUP MT SCH ×2 (08:00→20:08)
[2017-05-21] MEDS: HEPARIN SODIUM - SQ 10,000 UNITS/ML VIAL SQ SCH ×2 (08:01→20:09)
[2017-05-21] MEDS: ASPIRIN 81 MG CHEW TAB PO SCH (08:01)
[2017-05-21] MEDS: CARVEDILOL 6.25 MG TAB PO SCH ×2 (08:01→20:08)
[2017-05-21] MEDS: hydrALAZINE HCL 25 MG TAB PO SCH ×3 (08:01→17:05)
[2017-05-21] MEDS: busPIRone HCL 10 MG TAB PO SCH ×2 (08:01→20:07)
[2017-05-21] MEDS: cloNIDine HCL 0.1 MG TAB PO SCH ×2 (08:01→20:07)
[2017-05-21] MEDS: LEVOFLOXACIN 750 MG PREMIX INJ 150 ML IV SCH (08:02)
[2017-05-21] MEDS: PROPOFOL 1000 MG/100 ML IV SCH ×2 (08:03→10:40)
[2017-05-21] MEDS: SODIUM CHLORIDE 0.9% FLUSH 10 ML FLUSH IV FLUSH SCH ×2 (08:04→20:08)
[2017-05-21] MEDS: RESP: ALBUTEROL 2.5 MG/IPRATROPIUM 0.5 MG NEB (SCH) NEB ×3 (09:38→21:31)
[2017-05-21] MEDS: TICAGRELOR 90 MG TAB PO SCH ×2 (10:39→20:07)
--- NOTE | 2017-05-21 12:38 | PD.CONS ---
History of Present Illness Service Infectious disease Consult Requested By Dr Pepper Reason for Consult Evaluate patient with pneumonia Primary Care Physician Manas Borja MD Diagnoses: History of Present Illness Patient seen and examined. Records reviewed. Patient is a 81-year-old female, presented to the hospital complaining of cough , shortness of breath and chest tightness for one week. She was bringing up some whitish phlegm. She had worsening shortness of breath and presented to the hospital for further evaluation and treatment. She has had chills the night of admission. No nausea or vomiting or any urinary complaints. On presentation she ruled in for an NE. She had high grade AV block, and underwent emergent cardiac catheterization. She had some interventions done, and she also had placement of a temporary pacemaker. He ended up getting intubated. She's been intubated since. She had the fever initially, and that has improved, however since yesterday she started having fevers again. She apparently was having a lot of secretions, and required bronchoscopy yesterday. She is febrile today. She is awake and responding. She is on the vent. Infectious disease consultation has been requested to evaluate the patient. Review of Systems ROS Limitations: Clinical Condition, Intubated Constitutional: COMPLAINS OF: Fever Respiratory: COMPLAINS OF: Cough, Sputum production, Shortness of breath Cardiovascular: DENIES: Chest pain Past Family Social History Allergies: Coded Allergies: Zocor (Verified Allergy, Severe, ARMS SWELL, 05/16/17) Past Medical History HTN DM NE CKD stage 3 Past Surgical History Heart stents Cholecystectomy Hysterectomy Active Ordered Medications Tylenol Albuterol Xanax Aspirin Lipitor Tessalon BuSpar Coreg Cefepime Clonidine Precedex Heparin Hydralazine Levaquin Prinivil SL NTG Propofol Brilinta Family History Mom: Lung cancer Dad: NE at age 43 Social History No smoking No alcohol No illicit drugs Physical Exam Vital Signs Vital Signs Date Time Temp Pulse Resp B/P Pulse Ox O2 Delivery O2 Flow Rate FiO2 05/21/17 10:31 97 45 05/21/17 10:30 45 05/21/17 10:00 50 05/21/17 09:38 99 50 05/21/17 08:00 50 05/21/17 08:00 100.3 56 20 159/71 97 05/21/17 08:00 56 05/21/17 06:00 55 05/21/17 04:18 96 50 8/7/17 04:00 50 05/21/17 04:00 100.8 57 20 160/67 96 05/21/17 04:00 57 05/21/17 02:00 55 05/21/17 01:24 98 50 05/21/17 00:00 50 05/21/17 00:00 100.3 55 20 149/67 96 05/21/17 00:00 55 05/20/17 22:00 55 05/20/17 20:45 97 50 05/20/17 20:00 50 05/20/17 20:00 61 05/20/17 20:00 100.7 61 20 156/67 97 05/20/17 18:00 60 05/20/17 16:24 98 50 05/20/17 16:00 100.1 55 21 147/67 98 05/20/17 16:00 59 05/20/17 16:00 50 05/20/17 14:16 55 20 136/63 96 05/20/17 14:12 56 20 132/62 96 05/20/17 14:08 56 20 131/61 96 05/20/17 14:04 56 20 132/63 96 05/20/17 14:00 56 20 132/60 96 05/20/17 14:00 56 05/20/17 13:56 56 20 130/61 96 05/20/17 13:52 56 20 130/60 96 05/20/17 13:48 57 20 127/60 96 05/20/17 13:44 57 20 128/60 96 05/20/17 13:40 55 20 125/58 98 05/20/17 13:36 56 20 122/60 99 05/20/17 13:32 56 20 116/58 99 05/20/17 13:28 58 20 116/57 99 05/20/17 13:25 64 20 121/60 99 05/20/17 13:21 69 21 128/60 92 05/20/17 13:16 66 33 118/56 90 05/20/17 13:12 60 23 140/66 100 05/20/17 13:12 99 100 05/20/17 13:08 54 24 139/66 100 05/20/17 13:04 56 23 141/63 100 05/20/17 13:00 55 23 154/65 100 Physical Exam GENERAL: Patient is a well-nourished, well-developed CF, on the vent, on precedex, following commands. Not in respiratory distress. Sweating SKIN: Warm and dry. No generalized rash, no ecchymoses and no evidence of embolic lesions. HEAD: Atraumatic. Normocephalic. No temporal wasting, or tenderness. EYES: V[place]y conjunctiva. No petechia or hemorrhage. Pupils equal, round and reactive to light. Extraocular movements full and intact. No scleral icterus. No injection or drainage. EARS, NOSE AND THROAT: Nose without bleeding or purulent nasal discharge. No sinus tenderness. Orally intubated. Mucous membranes pink and moist. NECK: Trachea midline. Supple and not tender, no meningeal signs CARDIOVASCULAR: Regular rate and rhythm. No murmurs, rubs or gallops heard RESPIRATORY: Rhonchi on the right side, decreased breath sounds on the left side. ABDOMEN: Soft, non-tender, nondistended. Bowel sounds present and normoactive. No guarding. No rebound. No organomegaly. Ecchymoses on her R groin where she had her cardiac cath EXTREMITIES: No clubbing, cyanosis, or edema. No joint effusion, has good ROM. No calf tenderness. Well perfused and warm. NEUROLOGICAL: Awake and alert. Motor grossly within normal limits. Cranial nerves grossly non-focal PSYCHIATRIC: cooperative. LINE: No evidence of infection : Garcia in place, urine looks clear Laboratory Laboratory Tests Test 05/21/17 06:24 Blood Gas Puncture Site RT RADIAL Blood Gas Patient Temperature 98.6 Blood Gas HCO3 20 Blood Gas Base Excess -3.4 Blood Gas Oxygen Saturation 96 Arterial Blood pH 7.45 Arterial Blood Partial 30 Pressure CO2 Arterial Blood Partial 114 Pressure O2 Arterial Blood Oxygen Content 11.4 Arterial Blood 1.6 Carboxyhemoglobin Arterial Blood Methemoglobin 1.1 Blood Gas Hemoglobin 8.3 Oxygen Delivery Device VENTILATOR Blood Gas Ventilator Setting AC20/500/+5 Blood Gas Inspired Oxygen 50 Date/Time Procedure Status Source Growth 05/20/17 20:30 Legionella Antigen - Final Complete Urine Catheterized Urine PRESUMPTIVE NEGATIVE FOR LEGIONELLA P... 05/20/17 20:30 Streptococcus pneumoniae Antigen (M - Final Complete Urine Catheterized Urine PRESUMPTIVE NEGATIVE FOR STREPTOCOCCU... 05/20/17 20:18 Influenza Types A,B Antigen (SUZANNE) - Final Complete Nasal Washing NEGATIVE FOR FLU A AND B ANTIGEN.... 05/20/17 20:18 Gram Stain - Final Resulted Sputum Endotracheal 05/20/17 20:18 Sputum Culture Resulted Sputum Endotracheal Pending 05/20/17 20:18 Fungal Smear - Final Resulted Sputum Endotracheal NO FUNGAL ELEMENTS SEEN. 05/20/17 20:18 Fungal Culture Resulted Sputum Endotracheal Pending 05/20/17 20:18 Acid Fast Stain Received Sputum Endotracheal Pending 05/20/17 20:18 Mycobacterial Culture Received Sputum Endotracheal Pending 05/20/17 13:30 Cancelled Mini Bronchoalveolar Lavage 05/20/17 13:30 Cancelled Mini Bronchoalveolar Lavage 05/16/17 23:30 Aerobic Blood Culture - Final Complete Blood Peripheral NO GROWTH IN 5 DAYS 05/16/17 23:30 Anaerobic Blood Culture - Final Complete Blood Peripheral NO GROWTH IN 5 DAYS Result Diagram: 05/20/17 0610 05/20/17 0610 Imaging RADIOLOGY STUDIES/FILMS REVIEWED Last Impressions Chest X-Ray 05/21/17 0600 Signed Impressions: Service Date/Time: Sunday, May 21, 2017 02:53 - CONCLUSION: Improved aeration of the left lower lobe. Sterling Guevara MD Assessment and Plan Assessment and Plan IMPRESSION Recurrent fever likely due to VAP Initial presentation with CAP, has been on vent since 05/17 NE, S/P intervention Respiratory failure RECOMMENDATION Follow C/S Get UA and C/S and 2 BC today Continue cefepime and Levaquin for GNR coverage Add Vanco for MRSA coverage - give dose today and check level in AM Follow temps Monitor progress Will make further recommendations once workup and C/S finalized I will follow along with you Thank you for this consultation Discussed Condition With D/W Nani Christensen MD May 21, 2017 12:38
[2017-05-21] MEDS ORDERED: VANCOMYCIN INJ 1,000 MG in SODIUM CHLOR 0.9% 250 ML INJ 250 ML IV ONE (13:00)
[2017-05-21] MEDS ORDERED: SODIUM PHOSPHATE INJ 30 MMOL in SODIUM CHLOR 0.9% 250 ML INJ 250 ML IV ONE (15:00)
--- NOTE | 2017-05-21 16:06 | HHI.CCPN ---
Subjective Remarks/Hospital Course 81-year-old very pleasant female with a history of HTN, atrial fibrillation, DM , CT, and CKD stage 3 presented to the ED with complaints of a cough, shortness of breath and chest tightness for the last week. She states she has had a productive cough with white sputum production with increasing shortness of breath. She was admitted to ICU and while in the unit she became significantly bradycardic due to complete heart block, also in respiratory distress and severe hypoxemia. She was emergently intubated and taken to cardiac catheterization lab for retrograde heart catheterization with left ventriculography and selective coronary angiography, angioplasty and stenting of the distal left anterior descending artery and mid left anterior descending artery, and angioplasty and stenting of the proximal/ostial right coronary artery. Also transvenous pacemaker placement. Subjective: 05/18: The patient underwent cardiac stenting yesterday, maintain some intubated, with transvenous pacemaker. Dopamine has been weaned off this afternoon. Plan for CPAP trials with planned extubation in the a.m.. Heparin has been discontinued this afternoon with plans for removal of venous sheath. The patient remains hemodynamically stable. 05/19: Femoral sheath with transvenous pacemaker removed last evening. Hemodynamically stable. Carvedilol and lisinopril initiated this a.m.. Patient sedation change to Precedex in anticipation for possible extubation. The patient has tolerated CPAP trials greater than 12 hours, however failed SBT this evening. Patient's hemoglobin was noted to be 7.7 this a.m. patient received 1 unit of packed red blood cells CBC post transfusion pending. 05/20: Afebrile. Overnight the patient was noted to have thick secretions, and was lavaged 4. The patient had increasing requirements for sedation in oxygenation, CPAP trials were discontinued at 10 PM secondary to thick copious secretions. Plan for fiberoptic bronchoscopy with BAL today. Hemoglobin stable , patient remains hemodynamically stable off all pressors. 05/21: Patient febrile, copious thick secretions noted. ID following , expansion of antibiotic coverage. Initiation of tube feeds. Patient remains hemodynamically stable. Objective Vital Signs Date Time Temp Pulse Resp B/P Pulse Ox O2 Delivery O2 Flow Rate FiO2 05/21/17 13:36 93 45 05/21/17 12:00 59 05/21/17 12:00 100.1 23 136/64 05/18/17 01:03 Ventilator 05/17/17 08:41 3.00 Intake and Output 05/20/17 05/20/17 05/21/17 08:00 16:00 00:00 Intake Total 112 ml 509 ml 475 ml Output Total 1100 ml 750 ml 375 ml Balance -988 ml -241 ml 100 ml Result Diagram: 05/20/17 0610 05/20/17 0610 Other Results Microbiology Date/Time Procedure Status Source Growth 05/19/17 04:00 Gram Stain - Final Complete Sputum Endotracheal 05/19/17 04:00 Sputum Culture - Final Complete Sputum Endotracheal RARE GROWTH NORMAL RESPIRATORY MONTY 05/20/17 20:18 Influenza Types A,B Antigen (SUZANNE) - Final Complete Nasal Washing NEGATIVE FOR FLU A AND B ANTIGEN.... 05/20/17 20:30 Legionella Antigen - Final Complete Urine Catheterized Urine PRESUMPTIVE NEGATIVE FOR LEGIONELLA P... 05/20/17 20:30 Streptococcus pneumoniae Antigen (M - Final Complete Urine Catheterized Urine PRESUMPTIVE NEGATIVE FOR STREPTOCOCCU... Laboratory Tests Test 05/21/17 06:24 Blood Gas Puncture Site RT RADIAL Blood Gas Patient Temperature 98.6 Blood Gas HCO3 20 mmol/L (22-26) Blood Gas Base Excess -3.4 mmol/L (-2-2) Blood Gas Oxygen Saturation 96 % (90-100) Arterial Blood pH 7.45 (7.380-7.420) Arterial Blood Partial 30 mmHg (38-42) Pressure CO2 Arterial Blood Partial 114 mmHg Pressure O2 (61-120) Arterial Blood Oxygen Content 11.4 Vol % (12.0-20.0) Arterial Blood 1.6 % (0-4) Carboxyhemoglobin Arterial Blood Methemoglobin 1.1 % (0-2) Blood Gas Hemoglobin 8.3 G/DL (12.0-16.0) Oxygen Delivery Device VENTILATOR Blood Gas Ventilator Setting AC20/500/+5 Blood Gas Inspired Oxygen 50 % Objective Remarks GENERAL: Well-nourished, well-developed patient, intubated and sedated, following commands SKIN: Warm and dry. HEAD: Normocephalic. EYES: No scleral icterus. No injection or drainage. NECK: Supple, trachea midline. No JVD or lymphadenopathy. CARDIOVASCULAR: Regular rate and rhythm without murmurs, gallops, or rubs. RESPIRATORY: Breath sounds equal bilaterally. No accessory muscle use. GASTROINTESTINAL: Abdomen soft, protuberant ,non-tender, nondistended. MUSCULOSKELETAL: No cyanosis, or edema. BACK: Nontender without obvious deformity. NEURO EXAM: GCS: M6 V1E4 (GCS 11T) Mental Status: The patient is sedated and intubated, but responsive on Precedex and propofol infusion Cranial Nerves: Unable to obtain patient is sedated and intubated Reflexes: Biceps, patellar, and Achilles are 2/4 bilaterally. No clonus. Sensation: Unobtainable due to sedation and intubation Motor: Good muscle tone. Cerebellar: [id number] and [id number] unable to examine A/P Assessment and Plan Ventilator dependent Respiratory failure - Intubated for an airway protection, currently on propofol and Precedex infusions for ventilator synchrony - Continue mechanical ventilation - Start weaning when hemodynamically and neurologically stable - Vent bundle - DuoNeb's care -CPAP trials when clinically indicated Community-acquired Pneumonia -thick copious tenacious secretions -05/20 fiberoptic bronchoscopy with [id number] culture results -Remains on cefepime and azithromycin (Day 4), expansion of antibiotics per ID -Legionella, pneumococcal, influenza A and B antigens- results negative Coronary artery disease - 05/17 Status post angioplasty and stents of the distal LAD and mid left anterior descending artery, and angioplasty and stenting of the proximal/ostial right coronary artery Resumed 05/19 - Aspirin - Brilinta - Atorvastatin - Cardiology following Dr. Daly, low-dose carvedilol and lisinopril initiated 05/19 AV block-resolved - Status post temporary transvenous pacemaker placement-removed 05/18 - Monitor changes after revascularization Diabetes mellitus - Insulin sliding scale, low dose regimen Hypertension - Clonidine and hydralazine when necessary Chronic kidney disease stage 3 - Gentle IV fluid hydration - Monitor I's and O - Electrolytes and creatinine levels Hypophosphatemia -30 mmol of Sodium Phos DVT GI prophylaxis - Teds SCDs - Pepcid Dispo: Discussed with family, and FRONT OFFICE ASSOCIATE at bedside. Critical Care: This patient remains critically ill with one or more organ systems which are or may become a threat to life. I have spent in excess of 31 minutes discontinuously in the care and management of this patient. This time is exclusive of procedures, and includes, but is not limited to, evaluation of the patient, review of the medical record, discussions with family, consultants, nursing staff, or respiratory therapy, and documentation in the medical record. Physician María Elena Kirkpatrick MD May 21, 2017 16:06
--- NOTE | 2017-05-21 16:14 | PD.CARD.PN ---
Subjective Subjective Remarks Intubated, awake, unable to wean due to copious pulm secretions Objective Medications Current Medications Medications (Trade) Dose Ordered Sig/Renaldo Route Start Time Stop Time Status Last Admin (NS Flush) 2 ml UNSCH PRN IV FLUSH 05/17/17 00:30 (NS Flush) 2 ml BID IV FLUSH 05/17/17 09:00 05/21/17 08:04 (Narcan Inj) 0.4 mg UNSCH PRN IV 05/17/17 00:30 Miscellaneous Information Patient in critical care unit? Ass... [id number] .XX 05/17/17 02:45 (Chlorhexidine 2% Cloth) 3 pack UNSCH PRN TOPICAL 05/17/17 02:45 05/22/17 02:34 (Norvasc) 5 mg BID PO 05/17/17 09:00 Hold 05/17/17 07:46 (Buspar) 30 mg BID PO 05/17/17 09:00 05/21/17 08:01 (Catapres) 0.1 mg BID PO 05/17/17 09:00 05/21/17 08:01 (Cardizem Cd) 240 mg DAILY PO 05/17/17 09:00 Hold 05/17/17 07:48 (Apresoline) 10 mg TID PO 05/17/17 09:00 05/21/17 14:19 (Glucophage) 750 mg BIDPC PO 05/17/17 09:00 Hold 05/17/17 16:32 (Cozaar) 100 mg DAILY PO 05/17/17 09:00 Hold 05/17/17 07:47 (Hydrodiuril) 12.5 mg DAILY PO 05/17/17 09:00 Hold 05/17/17 07:48 Miscellaneous 1 ea 1 ea UNSCH PRN OTHER 05/17/17 05:30 (Levaquin 750 Mg Premix Inj) 150 ml @ 100 mls/hr Q48H IV 05/19/17 08:00 05/21/17 08:02 (Nitrostat Sl) 0.4 mg Q5M PRN SL 05/17/17 09:15 05/17/17 09:28 (Xanax) 0.25 mg Q8H PRN PO 05/17/17 10:00 05/17/17 16:43 (Tessalon) 100 mg TID PRN PO 05/17/17 09:15 05/17/17 16:43 (Aspirin Chew) 81 mg DAILY PO 05/18/17 09:00 05/21/17 08:01 (Brilinta) 90 mg BID PO 05/17/17 21:00 05/21/17 10:39 (Lipitor) 80 mg HS PO 05/17/17 21:00 05/20/17 20:34 (Tears Naturale Opth Soln) 1 drop Q4H PRN EACH EYE 05/18/17 16:15 (Peridex 0.12% Liq) 15 ml BID@08,20 MT 05/18/17 20:00 05/21/17 08:00 (Prinivil) 10 mg Q24H PO 05/18/17 19:15 05/20/17 18:03 Carvedilol 6.25 mg 6.25 mg BID PO 05/18/17 19:15 05/21/17 08:01 Cefepime HCl 2000 mg/Sodium Chloride 100 ml @ 200 mls/hr Q12H IV 05/19/17 00:00 05/21/17 10:41 (Precedex Inj/NS Inj) 52 ml @ 0 mls/hr TITRATE IV 05/19/17 07:45 05/21/17 11:59 Heparin Sodium (Porcine) 5000 units 5,000 units Q12HR SQ 05/19/17 21:00 05/21/17 08:01 (Diprivan 1000 Mg/100ml Inj) 100 ml @ 0 mls/hr TITRATE IV 05/20/17 11:30 05/21/17 10:40 Acetaminophen 650 mg 650 mg Q6H PRN PO 05/20/17 22:00 05/21/17 04:19 (Sodium Phosphate Inj/NS 250 ml Inj) 260 ml @ 43.333 mls/ hr ONCE ONCE IV 05/21/17 15:00 05/21/17 20:59 05/21/17 15:30 Vital Signs / I&O Vital Signs Date Time Temp Pulse Resp B/P Pulse Ox O2 Delivery O2 Flow Rate FiO2 05/21/17 13:36 93 45 05/21/17 12:00 59 05/21/17 12:00 45 05/21/17 12:00 100.1 59 23 136/64 100 05/21/17 10:31 97 45 05/21/17 10:30 45 05/21/17 10:00 50 05/21/17 09:38 99 50 05/21/17 08:00 50 05/21/17 08:00 100.3 56 20 159/71 97 05/21/17 08:00 56 05/21/17 06:00 55 05/21/17 04:18 96 50 05/21/17 04:00 50 05/21/17 04:00 100.8 57 20 160/67 96 05/21/17 04:00 57 05/21/17 02:00 55 05/21/17 01:24 98 50 05/21/17 00:00 50 05/21/17 00:00 100.3 55 20 149/67 96 05/21/17 00:00 55 05/20/17 22:00 55 05/20/17 20:45 97 50 05/20/17 20:00 50 05/20/17 20:00 61 05/20/17 20:00 100.7 61 20 156/67 97 05/20/17 18:00 60 05/20/17 16:24 98 50 I/O 05/20/17 05/20/17 05/20/17 05/21/17 05/21/17 05/21/17 06:59 14:59 22:59 06:59 14:59 22:59 Intake Total 112 ml 509 ml 475 ml 466 ml Output Total 1100 ml 750 ml 375 ml 300 ml Balance -988 ml -241 ml 100 ml 166 ml IV Total 112 ml 449 ml 325 ml 316 ml Other 60 ml 150 ml 150 ml Output Urine Total 1100 ml 750 ml 375 ml 300 ml # Bowel Movements 0 Physical Exam GENERAL: Intubated, awake SKIN: Warm and dry. HEAD: Normocephalic. EYES: No scleral icterus. No injection or drainage. NECK: Supple, trachea midline. No JVD or lymphadenopathy. CARDIOVASCULAR: Regular rate and rhythm without murmurs, gallops, or rubs. RESPIRATORY: Breath sounds equal bilaterally. No accessory muscle use. GASTROINTESTINAL: Abdomen soft, non-tender, nondistended. MUSCULOSKELETAL: No cyanosis, or edema. Groin stable Laboratory Laboratory Tests Test 05/21/17 06:24 Blood Gas Puncture Site RT RADIAL Blood Gas Patient Temperature 98.6 Blood Gas HCO3 20 mmol/L Blood Gas Base Excess -3.4 mmol/L Blood Gas Oxygen Saturation 96 % Arterial Blood pH 7.45 Arterial Blood Partial 30 mmHg Pressure CO2 Arterial Blood Partial 114 mmHg Pressure O2 Arterial Blood Oxygen Content 11.4 Vol % Arterial Blood 1.6 % Carboxyhemoglobin Arterial Blood Methemoglobin 1.1 % Blood Gas Hemoglobin 8.3 G/DL Oxygen Delivery Device VENTILATOR Blood Gas Ventilator Setting AC20/500/+5 Blood Gas Inspired Oxygen 50 % Imaging Last Impressions Chest X-Ray 05/21/17 0600 Signed Impressions: Service Date/Time: Sunday, May 21, 2017 02:53 - CONCLUSION: Improved aeration of the left lower lobe. Sterling Guevara MD Assessment and Plan Problem List: (1) Acute CHF (congestive heart failure) (2) NSTEMI (non-ST elevated myocardial infarction) (3) CAD (coronary artery disease) (4) High degree atrioventricular block (5) Respiratory failure (6) PNA (pneumonia) (7) Ischemic cardiomyopathy Assessment and Plan Remains stable p MV PCI, no recurrent bradycardia. Renal fx stable, continue to monitor. BP stable on carvedilol and lisinopril. Continue therapy for pneumonia. D/w patient's daughter. Problem Qualifiers (1) PNA (pneumonia): Qualified Code: J18.9 - Pneumonia of left lung due to infectious organism, unspecified part of lung Mg Daly MD May 21, 2017 16:14
[2017-05-21 17:26] LABS: BACTERIA, URINE RARE /hpf; BLOOD, URINE SMALL (NEG); GLUCOSE,URINE NEG (NEG); KETONE, URINE 10 mg/dL (NEG); NITRITE,URINE NEG (NEG); PH, URINE 5.5 (5.0-8.5); SQUAMOUS EPITHELIAL CELL URINE <1 /hpf (0-5); URINE COLOR YELLOW (YELLW/STRAW)
[2017-05-21 17:27] LABS: COMMENT (UR) CATH-CULTURE IND; CULTURE IF INDICATED CATH CULTURE IND
[2017-05-21] MEDS: ATORVASTATIN 10 MG TAB PO SCH (20:06)
[2017-05-21] MEDS: LISINOPRIL 10 MG TAB PO SCH (20:07)
[2017-05-22] VITALS (25 sets, daily range): BP systolic 108–167; BP diastolic 53–84; PULSE 49–86; RESP 20–30; TEMP 98.5–100.9; O2SAT 93–99
[2017-05-22] MEDS: PROPOFOL 1000 MG/100 ML IV SCH ×3 (02:42→22:45)
[2017-05-22] MEDS: RESP: ALBUTEROL 2.5 MG/IPRATROPIUM 0.5 MG NEB (SCH) NEB ×4 (04:05→20:30)
--- NOTE | 2017-05-22 04:58 | RADRPT ---
EXAM DATE/TIME: 05/22/2017 03:32 [facility] COMPARISON: CHEST SINGLE AP, May 21, 2017, 2:53. INDICATIONS : Respiratory distress. MEDICAL HISTORY : Myocardial infarction. Hypertension. Diabetes mellitus type 2. SURGICAL HISTORY : None. ENCOUNTER: Subsequent ACUITY: 4 - 6 days PAIN SCORE: Non-responsive. LOCATION: Bilateral chest FINDINGS: Endotracheal tube tip at the thoracic inlet. Enteric tube courses beneath the diaphragm. Cardiomegaly and bilateral consolidation again seen. CONCLUSION: No significant change has occurred. Sterling Guevara MD on May 22, 2017 at 4:56 Board Certified Radiologist. This report was verified electronically.
[2017-05-22 05:43] LABS: BLOOD GAS BASE EXCESS -4.7 mmol/L (-2-2); BLOOD GAS CARBOXYHEMOGLOBIN 1.3 % (0-4); BLOOD GAS HCO3 19 mmol/L (22-26); BLOOD GAS METHEMOGLOBIN 1.1 % (0-2); BLOOD GAS O2 HGB SATURATION 95 % (90-100); BLOOD GAS PCO2 31 mmHg (38-42); BLOOD GAS PO2 107 mmHg (61-120); BLOOD GAS TOTAL HGB 10.3 G/DL (12.0-16.0); CRITICAL VALUE NO; TEMP CORR TO 98.6
[2017-05-22 05:44] LABS: OXYGEN DEVICE VENTILATOR
[2017-05-22 05:45] LABS: DRAW SITE RT RADIAL; FIO2 45 %; NUMBER OF ARTERIAL PUNCTURES 1; STAT NO; VENT SETTINGS AC500/20/PEEP7
[2017-05-22 06:56] LABS: AUTOMATED NEUTROPHIL # 6.2 TH/MM3 (1.8-7.7); BASOPHIL % 0.6 % (0.0-2.0); EOSINOPHIL # 0.2 TH/MM3 (0-0.4); EOSINOPHIL % 2.6 % (0.0-4.0); HEMATOCRIT 25.6 % (35.0-46.0); HEMO FLAGS DIFF FINAL; LYMPH % 11.6 % (9.0-44.0); LYMPHOCYTE # 0.9 TH/MM3 (1.0-4.8); MEAN CORPUSCULAR HEMOGLOBIN 27.7 PG (27.0-34.0); MEAN CORPUSCULAR HGB CONC 32.1 % (32.0-36.0); MONO % 5.6 % (0.0-8.0); NEUT % 79.6 % (16.0-70.0); PLATELET COUNT 189 TH/MM3 (150-450); RED BLOOD COUNT 2.98 MIL/MM3 (4.00-5.30); RED CELL DISTRIBUTION WIDTH 15.9 % (11.6-17.2); WHITE BLOOD COUNT 7.8 TH/MM3 (4.0-11.0)
[2017-05-22 07:27] LABS: BICARBONATE 21.7 MEQ/L (21.0-32.0); MAGNESIUM 2.7 MG/DL (1.5-2.5); POTASSIUM 3.7 MEQ/L (3.5-5.1)
[2017-05-22] MEDS: cloNIDine HCL 0.1 MG TAB PO SCH ×2 (09:00→20:46)
[2017-05-22] MEDS: CARVEDILOL 6.25 MG TAB PO SCH ×2 (09:00→20:46)
[2017-05-22] MEDS: hydrALAZINE HCL 25 MG TAB PO SCH ×3 (09:13→17:10)
[2017-05-22] MEDS: ASPIRIN 81 MG CHEW TAB PO SCH (09:13)
[2017-05-22] MEDS: TICAGRELOR 90 MG TAB PO SCH ×2 (09:13→20:46)
[2017-05-22] MEDS: HEPARIN SODIUM - SQ 10,000 UNITS/ML VIAL SQ SCH ×2 (09:13→20:47)
[2017-05-22] MEDS: SODIUM CHLORIDE 0.9% FLUSH 10 ML FLUSH IV FLUSH SCH ×2 (09:13→20:47)
[2017-05-22] MEDS: CHLORHEXIDINE 0.12% (ORAL KIT) 15 ML CUP MT SCH ×2 (09:14→20:00)
[2017-05-22] MEDS: busPIRone HCL 10 MG TAB PO SCH ×2 (09:15→20:46)
--- NOTE | 2017-05-22 10:48 | HHI.CCPN ---
Subjective Remarks/Hospital Course 81-year-old very pleasant female with a history of HTN, atrial fibrillation, DM , [place], and CKD stage 3 presented to the ED with complaints of a cough, shortness of breath and chest tightness for the last week. She states she has had a productive cough with white sputum production with increasing shortness of breath. She was admitted to ICU and while in the unit she became significantly bradycardic due to complete heart block, also in respiratory distress and severe hypoxemia. She was emergently intubated and taken to cardiac catheterization lab for retrograde heart catheterization with left ventriculography and selective coronary angiography, angioplasty and stenting of the distal left anterior descending artery and mid left anterior descending artery, and angioplasty and stenting of the proximal/ostial right coronary artery. Also transvenous pacemaker placement. Subjective: 05/18: The patient underwent cardiac stenting yesterday, maintain some intubated, with transvenous pacemaker. Dopamine has been weaned off this afternoon. Plan for CPAP trials with planned extubation in the a.m.. Heparin has been discontinued this afternoon with plans for removal of venous sheath. The patient remains hemodynamically stable. 05/19: Femoral sheath with transvenous pacemaker removed last evening. Hemodynamically stable. Carvedilol and lisinopril initiated this a.m.. Patient sedation change to Precedex in anticipation for possible extubation. The patient has tolerated CPAP trials greater than 12 hours, however failed SBT this evening. Patient's hemoglobin was noted to be 7.7 this a.m. patient received 1 unit of packed red blood cells CBC post transfusion pending. 05/20: Afebrile. Overnight the patient was noted to have thick secretions, and was lavaged 4. The patient had increasing requirements for sedation in oxygenation, CPAP trials were discontinued at 10 PM secondary to thick copious secretions. Plan for fiberoptic bronchoscopy with BAL today. Hemoglobin stable , patient remains hemodynamically stable off all pressors. 05/21: Patient febrile, copious thick secretions noted. ID following , expansion of antibiotic coverage. Initiation of tube feeds. Patient remains hemodynamically stable. 05/22: Tmax 99.9. No acute issues overnight the patient continues on AcipHex and propofol infusions. She remains alert GCS 11 T communicating by writing, and responsive to yes and no questions. Patient continues to have bilateral lung consolidations, antibiotics expanded per ID. Cultures continue to be pending. Patient tolerating tube feeds will advance as tolerated. Objective Vital Signs Date Time Temp Pulse Resp B/P Pulse Ox O2 Delivery O2 Flow Rate FiO2 05/22/17 10:00 68 05/22/17 10:00 99.4 23 142/63 96 05/22/17 10:00 45 Intake and Output 05/21/17 05/21/17 05/22/17 08:00 16:00 00:00 Intake Total 466 ml 613 ml 895 ml Output Total 300 ml 400 ml 600 ml Balance 166 ml 213 ml 295 ml Result Diagram: 05/22/17 0452 05/22/17 0452 Other Results Microbiology Date/Time Procedure Status Source Growth 05/20/17 20:18 Influenza Types A,B Antigen (SUZANNE) - Final Complete Nasal Washing NEGATIVE FOR FLU A AND B ANTIGEN.... 05/20/17 20:30 Legionella Antigen - Final Complete Urine Catheterized Urine PRESUMPTIVE NEGATIVE FOR LEGIONELLA P... 05/20/17 20:30 Streptococcus pneumoniae Antigen (M - Final Complete Urine Catheterized Urine PRESUMPTIVE NEGATIVE FOR STREPTOCOCCU... Laboratory Tests Test 05/22/17 05:38 Blood Gas Puncture Site RT RADIAL Blood Gas Patient Temperature 98.6 Blood Gas HCO3 19 mmol/L (22-26) Blood Gas Base Excess -4.7 mmol/L (-2-2) Blood Gas Oxygen Saturation 95 % (90-100) Arterial Blood pH 7.40 (7.380-7.420) Arterial Blood Partial 31 mmHg (38-42) Pressure CO2 Arterial Blood Partial 107 mmHg Pressure O2 (61-120) Arterial Blood Oxygen Content 14.0 Vol % (12.0-20.0) Arterial Blood 1.3 % (0-4) Carboxyhemoglobin Arterial Blood Methemoglobin 1.1 % (0-2) Blood Gas Hemoglobin 10.3 G/DL (12.0-16.0) Oxygen Delivery Device VENTILATOR Blood Gas Ventilator Setting AC500/20/PEEP7 Blood Gas Inspired Oxygen 45 % Objective Remarks GENERAL: Well-nourished, well-developed patient, awake, following commands on propofol and Precedex infusions SKIN: Warm and dry. HEAD: Normocephalic. EYES: No scleral icterus. No injection or drainage. NECK: Supple, trachea midline. No JVD or lymphadenopathy. CARDIOVASCULAR: Regular rate and rhythm without murmurs, gallops, or rubs. RESPIRATORY: Breath sounds equal bilaterally. No accessory muscle use. GASTROINTESTINAL: Abdomen soft, protuberant ,non-tender, nondistended. MUSCULOSKELETAL: No cyanosis, or edema. BACK: Nontender without obvious deformity. NEURO EXAM: GCS: M6 V1E4 (GCS 11T) Mental Status: The patient is sedated and intubated, but responsive on Precedex and propofol infusion Cranial Nerves: Unable to obtain patient is sedated and intubated Reflexes: Biceps, patellar, and Achilles are 2/4 bilaterally. No clonus. Sensation: Unobtainable due to sedation and intubation Motor: Good muscle tone. Cerebellar: Mzhdmi-yb-kxva and [id number] unable to examine A/P Assessment and Plan Ventilator dependent Respiratory failure - Intubated for an airway protection, currently on propofol and Precedex infusions for ventilator synchrony - Continue mechanical ventilation - Start weaning when hemodynamically and neurologically stable - Vent bundle - DuoNeb's care -CPAP trials as tolerated Community-acquired Pneumonia -Secretions diminished -05/20 fiberoptic bronchoscopy with [id number] culture results -Antibiotics per ID recommendation -Legionella, pneumococcal, influenza A and B antigens- results negative -Repeat urine and blood cultures pending. Bronchial washings pending Coronary artery disease - 05/17 Status post angioplasty and stents of the distal LAD and mid left anterior descending artery, and angioplasty and stenting of the proximal/ostial right coronary artery Resumed 05/19 - Aspirin - Brilinta - Atorvastatin - Cardiology following Dr. Daly, low-dose carvedilol and lisinopril initiated 05/19, no dynamically stable AV block-resolved - Status post temporary transvenous pacemaker placement-removed 05/18 - Monitor changes after revascularization Diabetes mellitus - Insulin sliding scale, low dose regimen Hypertension - Clonidine and hydralazine when necessary Chronic kidney disease stage 3 - Creatinine improved - Monitor I's and O - Monitor Electrolytes and creatinine level DVT GI prophylaxis - Teds SCDs - Pepcid Dispo: Discussed with family, and SUPERVISOR FRAME SAMPLE AND PATTERN at bedside. Critical Care: This patient remains critically ill with one or more organ systems which are or may become a threat to life. I have spent in excess of 30 minutes discontinuously in the care and management of this patient. This time is exclusive of procedures, and includes, but is not limited to, evaluation of the patient, review of the medical record, discussions with family, consultants, nursing staff, or respiratory therapy, and documentation in the medical record. Physician María Elena Kirkpatrick MD May 22, 2017 10:48
[2017-05-22] MEDS: CEFEPIME INJ 2,000 MG in SODIUM CHLORIDE 0.9% INJ 100 ML IV SCH ×2 (12:35→23:28)
[2017-05-22] MEDS: DEXMEDETOMIDINE INJ 200 MCG in SODIUM CHLORIDE 0.9% INJ 50 ML IV SCH ×3 (12:36→22:45)
--- NOTE | 2017-05-22 12:39 | HHI.IDPN ---
Subjective Subjective Remarks Patient is a 81-year-old female, presented to the hospital complaining of cough , shortness of breath and chest tightness for one week. She was bringing up some whitish phlegm. She had worsening shortness of breath and presented to the hospital for further evaluation and treatment. She has had chills the night of admission. No nausea or vomiting or any urinary complaints. On presentation she ruled in for an CA. She had high grade AV block, and underwent emergent cardiac catheterization. She had some interventions done, and she also had placement of a temporary pacemaker. He ended up getting intubated. She's been intubated since. She had the fever initially, and that has improved, however since yesterday she started having fevers again. She apparently was having a lot of secretions, and required bronchoscopy yesterday. She is febrile today. She is awake and responding. She is on the vent. Infectious disease consultation has been requested to evaluate the patient. Notes reviewed Temps low grade, better Tolerating CPAP Secretions seem less BP ok CXR stable Nothing new on C/S Antibiotics Cefepime Levaquin Vancomycin Past Medical History HTN DM CA CKD stage 3 Past Surgical History Heart stents Cholecystectomy Hysterectomy Allergies: Coded Allergies: Zocor (Verified Allergy, Severe, ARMS SWELL, 05/16/17) Objective . Vital Signs Date Time Temp Pulse Resp B/P Pulse Ox O2 Delivery O2 Flow Rate FiO2 05/22/17 12:31 96 45 05/22/17 12:00 71 05/22/17 12:00 45 05/22/17 12:00 99.3 71 21 147/67 97 05/22/17 11:00 74 26 139/62 95 05/22/17 10:00 68 05/22/17 10:00 99.4 68 23 142/63 96 05/22/17 10:00 45 05/22/17 09:39 98 45 05/22/17 09:25 45 05/22/17 09:00 61 22 152/66 99 05/22/17 08:01 54 23 144/64 99 05/22/17 08:00 45 05/22/17 08:00 53 05/22/17 07:00 49 20 147/67 99 05/22/17 06:00 50 05/22/17 04:06 94 45 05/22/17 04:00 45 05/22/17 04:00 55 8/8/17 04:00 99.0 55 25 123/58 93 05/22/17 02:00 51 05/22/17 00:21 97 45 05/22/17 00:00 60 05/22/17 00:00 45 05/22/17 00:00 98.5 60 20 108/53 97 05/21/17 22:00 53 05/21/17 21:26 97 45 05/21/17 20:00 74 05/21/17 20:00 45 05/21/17 20:00 99.9 74 22 109/53 94 05/21/17 18:00 93 05/21/17 16:57 96 45 05/21/17 16:00 88 05/21/17 16:00 100.1 88 23 152/67 95 05/21/17 16:00 45 05/21/17 14:00 77 05/21/17 13:36 93 45 05/21/17 05/21/17 05/22/17 15:00 23:00 07:00 Intake Total 613 ml 1241 ml Output Total 400 ml 850 ml Balance 213 ml 391 ml IV Total 440 ml 982 ml Tube Feeding 23 ml 139 ml Tube Irrigant 150 ml Other 120 ml Output Urine Total 400 ml 850 ml # Bowel Movements 1 . Laboratory Tests Test 05/22/17 04:52 White Blood Count 7.8 TH/MM3 Red Blood Count 2.98 MIL/MM3 Hemoglobin 8.2 GM/DL Hematocrit 25.6 % Mean Corpuscular Volume 86.0 FL Mean Corpuscular Hemoglobin 27.7 PG Mean Corpuscular Hemoglobin 32.1 % Concent Red Cell Distribution Width 15.9 % Platelet Count 189 TH/MM3 Mean Platelet Volume 7.4 FL Neutrophils (%) (Auto) 79.6 % Lymphocytes (%) (Auto) 11.6 % Monocytes (%) (Auto) 5.6 % Eosinophils (%) (Auto) 2.6 % Basophils (%) (Auto) 0.6 % Neutrophils # (Auto) 6.2 TH/MM3 Lymphocytes # (Auto) 0.9 TH/MM3 Monocytes # (Auto) 0.4 TH/MM3 Eosinophils # (Auto) 0.2 TH/MM3 Basophils # (Auto) 0.0 TH/MM3 CBC Comment DIFF FINAL Differential Comment Laboratory Tests Test 05/22/17 04:52 Sodium Level 145 MEQ/L Potassium Level 3.7 MEQ/L Chloride Level 114 MEQ/L Carbon Dioxide Level 21.7 MEQ/L Anion Gap 9 MEQ/L Blood Urea Nitrogen 26 MG/DL Creatinine 1.23 MG/DL Estimat Glomerular Filtration 42 ML/MIN Rate Random Glucose 103 MG/DL Calcium Level 8.2 MG/DL Phosphorus Level 4.0 MG/DL Magnesium Level 2.7 MG/DL Microbiology Date/Time Procedure Status Source Growth 05/20/17 13:30 Cancelled Mini Bronchoalveolar Lavage 05/20/17 13:30 Cancelled Mini Bronchoalveolar Lavage 05/20/17 13:30 Gram Stain - Final Resulted Bronchial Washings Left Lower Lobe 05/20/17 13:30 Bronchial Culture Resulted Bronchial Washings Left Lower Lobe Pending 05/20/17 13:30 Gram Stain - Final Resulted Bronchial Washings Bronchial 05/20/17 13:30 Bronchial Culture Resulted Bronchial Washings Bronchial Pending 05/20/17 20:18 Gram Stain - Final Complete Sputum Endotracheal 05/20/17 20:18 Sputum Culture - Final Complete Sputum Endotracheal LIGHT GROWTH NORMAL RESPIRATORY MONTY 05/20/17 20:18 Influenza Types A,B Antigen (SUZANNE) - Final Complete Nasal Washing NEGATIVE FOR FLU A AND B ANTIGEN.... 05/20/17 20:18 Acid Fast Stain - Final Resulted Sputum Endotracheal NO ACID FAST BACILLI SEEN 05/20/17 20:18 Mycobacterial Culture Resulted Sputum Endotracheal Pending 05/20/17 20:18 Fungal Smear - Final Resulted Sputum Endotracheal NO FUNGAL ELEMENTS SEEN. 05/20/17 20:18 Fungal Culture Resulted Sputum Endotracheal Pending 05/20/17 20:30 Legionella Antigen - Final Complete Urine Catheterized Urine PRESUMPTIVE NEGATIVE FOR LEGIONELLA P... 05/20/17 20:30 Streptococcus pneumoniae Antigen (M - Final Complete Urine Catheterized Urine PRESUMPTIVE NEGATIVE FOR STREPTOCOCCU... 05/21/17 16:20 Urine Culture Received Urine Catheterized Urine Pending 05/21/17 19:30 Aerobic Blood Culture - Preliminary Resulted Blood Peripheral NO GROWTH IN 1 DAY 05/21/17 19:30 Anaerobic Blood Culture - Preliminary Resulted Blood Peripheral NO GROWTH IN 1 DAY 05/21/17 19:35 Aerobic Blood Culture - Preliminary Resulted Blood Peripheral NO GROWTH IN 1 DAY 05/21/17 19:35 Anaerobic Blood Culture - Preliminary Resulted Blood Peripheral NO GROWTH IN 1 DAY Imaging Last 72 hours Impressions Chest X-Ray 05/22/17599 Signed Impressions: Service Date/Time: Monday, May 22, 2017 03:32 - CONCLUSION: No significant change has occurred. Sterling Guevara MD Chest X-Ray 05/21/17599 Signed Impressions: Service Date/Time: Sunday, May 21, 2017 02:53 - CONCLUSION: Improved aeration of the left lower lobe. Sterling Guevara MD Chest X-Ray 05/20/17599 Signed Impressions: Service Date/Time: Saturday, May 20, 2017 03:36 - CONCLUSION: 1. Patchy alveolar disease characteristic of edema or pneumonia. There has been no significant change when compared to the prior exam. Chano Bullock MD Chest X-Ray 05/20/17 0000 Signed Impressions: Service Date/Time: Saturday, May 20, 2017 15:35 - CONCLUSION: No significant change. Bilateral infiltrates persist. No pneumothorax or other acute complication seen post bronchoscopy. David Rodriguez MD Chest X-Ray 05/20/17 0000 Signed Impressions: Service Date/Time: Saturday, May 20, 2017 13:49 - CONCLUSION: 1. Patchy bilateral pulmonary infiltrates persist without significant change. David Rodriguez MD Physical Exam GENERAL: Awake, on the vent, on precedex, following commands. Not in respiratory distress. SKIN: Warm and dry. No generalized rash, no ecchymoses and no evidence of embolic lesions. HEAD: Atraumatic. Normocephalic. No temporal wasting, or tenderness. EYES: [place] conjunctiva. No petechia or hemorrhage. Pupils equal, round and reactive to light. Extraocular movements full and intact. No scleral icterus. No injection or drainage. EARS, NOSE AND THROAT: Nose without bleeding or purulent nasal discharge. No sinus tenderness. Orally intubated. Mucous membranes pink and moist. NECK: Trachea midline. Supple and not tender, no meningeal signs CARDIOVASCULAR: Regular rate and rhythm. No murmurs, rubs or gallops heard RESPIRATORY: Rhonchi on the right side, decreased breath sounds on the left side. ABDOMEN: Soft, non-tender, nondistended. Bowel sounds present and normoactive. No guarding. No rebound. No organomegaly. Ecchymoses on her R groin where she had her cardiac cath EXTREMITIES: No clubbing, cyanosis, or edema. No joint effusion, has good ROM. No calf tenderness. Well perfused and warm. NEUROLOGICAL: Awake and alert. Motor grossly within normal limits. Cranial nerves grossly non-focal PSYCHIATRIC: cooperative. LINE: No evidence of infection : Garcia in place, urine looks clear Assessment & Plan Remarks IMPRESSION Recurrent fever likely due to VAP - temp seem to be trending down Initial presentation with CAP, has been on vent since 05/17 CA, S/P intervention Respiratory failure RECOMMENDATION Follow C/S Continue cefepime and Levaquin for GNR coverage Continue Vanco for MRSA coverage Follow C/S and adjust Abx Follow temps Monitor progress Will make further recommendations once workup and C/S finalized D/W RN Spoke with daughter Nani Godniez MD May 22, 2017 12:39
[2017-05-22] MEDS ORDERED: VANCOMYCIN INJ 1,000 MG in SODIUM CHLOR 0.9% 250 ML INJ 250 ML IV ONE (12:45)
[2017-05-22] MEDS ORDERED: Vancomycin Consult Pharmacy 1 EA OTHER SCH (12:45)
[2017-05-22] MEDS ORDERED: GLUCAGON 1 MG/ML VIAL OTHER PRN (13:15)
[2017-05-22] MEDS ORDERED: DEXTROSE 50% IN WATER 50 ML VIAL(D50) IV PRN (13:15)
[2017-05-22] MEDS ORDERED: VANCOMYCIN INJ 1,250 MG in SODIUM CHLOR 0.9% 250 ML INJ 250 ML IV SCH (15:00)
[2017-05-22] MEDS: INSULIN ASPART SUPPLEMENTAL SCALE SQ SCH ×2 (15:50→20:49)
--- NOTE | 2017-05-22 17:30 | PD.CARD.PN ---
Subjective Subjective Remarks Intubated, awake, coughing Objective Medications Current Medications Medications (Trade) Dose Ordered Sig/Renaldo Route Start Time Stop Time Status Last Admin (NS Flush) 2 ml UNSCH PRN IV FLUSH 05/17/17 00:30 (NS Flush) 2 ml BID IV FLUSH 05/17/17 09:00 05/22/17 09:13 (Narcan Inj) 0.4 mg UNSCH PRN IV 05/17/17 00:30 Miscellaneous Information Patient in critical care unit? Ass... Q361D .XX 05/17/17 02:45 (Norvasc) 5 mg BID PO 05/17/17 09:00 Hold 05/17/17 07:46 (Buspar) 30 mg BID PO 05/17/17 09:00 05/22/17 09:15 (Catapres) 0.1 mg BID PO 05/17/17 09:00 05/21/17 20:07 (Cardizem Cd) 240 mg DAILY PO 05/17/17 09:00 Hold 05/17/17 07:48 (Apresoline) 10 mg TID PO 05/17/17 09:00 05/22/17 17:10 (Glucophage) 750 mg BIDPC PO 05/17/17 09:00 Hold 05/17/17 16:32 (Cozaar) 100 mg DAILY PO 05/17/17 09:00 Hold 05/17/17 07:47 (Hydrodiuril) 12.5 mg DAILY PO 05/17/17 09:00 Hold 05/17/17 07:48 Miscellaneous 1 ea 1 ea UNSCH PRN OTHER 05/17/17 05:30 (Levaquin 750 Mg Premix Inj) 150 ml @ 100 mls/hr Q48H IV 05/19/17 08:00 05/21/17 08:02 (Nitrostat Sl) 0.4 mg Q5M PRN SL 05/17/17 09:15 05/17/17 09:28 (Xanax) 0.25 mg Q8H PRN PO 05/17/17 10:00 05/17/17 16:43 (Tessalon) 100 mg TID PRN PO 05/17/17 09:15 05/17/17 16:43 (Aspirin Chew) 81 mg DAILY PO 05/18/17 09:00 05/22/17 09:13 (Brilinta) 90 mg BID PO 05/17/17 21:00 05/22/17 09:13 (Lipitor) 80 mg HS PO 05/17/17 21:00 05/21/17 20:06 (Tears Naturale Opth Soln) 1 drop Q4H PRN EACH EYE 05/18/17 16:15 (Peridex 0.12% Liq) 15 ml BID@08,20 MT 05/18/17 20:00 05/22/17 09:14 (Prinivil) 10 mg Q24H PO 05/18/17 19:15 05/21/17 20:07 Carvedilol 6.25 mg 6.25 mg BID PO 05/18/17 19:15 05/21/17 20:08 Cefepime HCl 2000 mg/Sodium Chloride 100 ml @ 200 mls/hr Q12H IV 05/19/17 00:00 05/22/17 12:35 (Precedex Inj/NS Inj) 52 ml @ 0 mls/hr TITRATE IV 05/19/17 07:45 05/22/17 12:36 Heparin Sodium (Porcine) 5000 units 5,000 units Q12HR SQ 05/19/17 21:00 05/22/17 09:13 (Diprivan 1000 Mg/100ml Inj) 100 ml @ 0 mls/hr TITRATE IV 05/20/17 11:30 05/22/17 12:36 Acetaminophen 650 mg 650 mg Q6H PRN PO 05/20/17 22:00 05/21/17 04:19 (Vancomycin Consult Pharmacy) 0 ml @ 0 mls/hr UNSCH OTHER 05/22/17 12:45 (D50w (Vial) Inj) 50 ml UNSCH PRN IV 05/22/17 13:15 Glucagon 1 mg 1 mg UNSCH PRN OTHER 05/22/17 13:15 (Vancomycin Inj/ NS 250 ml Inj) 262.5 ml @ 250 mls/hr Q24H IV 05/22/17 15:00 05/22/17 14:20 Miscellaneous Information SPECIFIC LAB TO BE DRAWN:VANCOMYCIN TROUGH DATE TO... ONCE ONCE .XX 05/24/17 14:45 05/24/17 14:46 Vital Signs / I&O Vital Signs Date Time Temp Pulse Resp B/P Pulse Ox O2 Delivery O2 Flow Rate FiO2 05/22/17 16:18 96 45 05/22/17 16:00 84 05/22/17 16:00 45 05/22/17 16:00 100.9 84 26 167/72 97 05/22/17 15:00 80 26 166/72 96 05/22/17 14:00 82 30 143/84 96 05/22/17 14:00 82 05/22/17 13:01 76 23 130/62 96 05/22/17 13:00 76 25 96 05/22/17 12:31 96 45 05/22/17 12:00 71 05/22/17 12:00 45 05/22/17 12:00 99.3 71 21 147/67 97 05/22/17 11:00 74 26 139/62 95 05/22/17 10:00 68 05/22/17 10:00 99.4 68 23 142/63 96 05/22/17 10:00 45 05/22/17 09:39 98 45 05/22/17 09:25 45 05/22/17 09:00 61 22 152/66 99 05/22/17 08:01 54 23 144/64 99 05/22/17 08:00 45 05/22/17 08:00 53 05/22/17 07:00 49 20 147/67 99 05/22/17 06:00 50 05/22/17 04:06 94 45 05/22/17 04:00 45 05/22/17 04:00 55 05/22/17 04:00 99.0 55 25 123/58 93 05/22/17 02:00 51 05/22/17 00:21 97 45 05/22/17 00:00 60 05/22/17 00:00 45 05/22/17 00:00 98.5 60 20 108/53 97 05/21/17 22:00 53 05/21/17 21:26 97 45 05/21/17 20:00 74 05/21/17 20:00 45 05/21/17 20:00 99.9 74 22 109/53 94 05/21/17 18:00 93 I/O 05/21/17 05/21/17 05/21/17 05/22/17 05/22/17 05/22/17 06:59 14:59 22:59 06:59 14:59 22:59 Intake Total 466 ml 613 ml 1241 ml 590 ml Output Total 300 ml 400 ml 850 ml 550 ml Balance 166 ml 213 ml 391 ml 40 ml IV Total 316 ml 440 ml 982 ml 423 ml Tube Feeding 23 ml 139 ml 167 ml Tube Irrigant 150 ml Other 150 ml 120 ml Output Urine Total 300 ml 400 ml 850 ml 550 ml # Bowel Movements 1 1 Physical Exam GENERAL: Intubated, awake SKIN: Warm and dry. HEAD: Normocephalic. EYES: No scleral icterus. No injection or drainage. NECK: Supple, trachea midline. No JVD or lymphadenopathy. CARDIOVASCULAR: Regular rate and rhythm without murmurs, gallops, or rubs. RESPIRATORY: Breath sounds equal bilaterally. No accessory muscle use. GASTROINTESTINAL: Abdomen soft, non-tender, nondistended. MUSCULOSKELETAL: No cyanosis, or edema. Groin stable Laboratory Laboratory Tests Test 05/22/17 05/22/17 04:52 05:38 White Blood Count 7.8 TH/MM3 Red Blood Count 2.98 MIL/MM3 Hemoglobin 8.2 GM/DL Hematocrit 25.6 % Mean Corpuscular Volume 86.0 FL Mean Corpuscular Hemoglobin 27.7 PG Mean Corpuscular Hemoglobin 32.1 % Concent Red Cell Distribution Width 15.9 % Platelet Count 189 TH/MM3 Mean Platelet Volume 7.4 FL Neutrophils (%) (Auto) 79.6 % Lymphocytes (%) (Auto) 11.6 % Monocytes (%) (Auto) 5.6 % Eosinophils (%) (Auto) 2.6 % Basophils (%) (Auto) 0.6 % Neutrophils # (Auto) 6.2 TH/MM3 Lymphocytes # (Auto) 0.9 TH/MM3 Monocytes # (Auto) 0.4 TH/MM3 Eosinophils # (Auto) 0.2 TH/MM3 Basophils # (Auto) 0.0 TH/MM3 CBC Comment DIFF FINAL Differential Comment Sodium Level 145 MEQ/L Potassium Level 3.7 MEQ/L Chloride Level 114 MEQ/L Carbon Dioxide Level 21.7 MEQ/L Anion Gap 9 MEQ/L Blood Urea Nitrogen 26 MG/DL Creatinine 1.23 MG/DL Estimat Glomerular Filtration 42 ML/MIN Rate Random Glucose 103 MG/DL Calcium Level 8.2 MG/DL Phosphorus Level 4.0 MG/DL Magnesium Level 2.7 MG/DL Random Vancomycin Level 8.7 COMMENT Blood Gas Puncture Site RT RADIAL Blood Gas Patient Temperature 98.6 Blood Gas HCO3 19 mmol/L Blood Gas Base Excess -4.7 mmol/L Blood Gas Oxygen Saturation 95 % Arterial Blood pH 7.40 Arterial Blood Partial 31 mmHg Pressure CO2 Arterial Blood Partial 107 mmHg Pressure O2 Arterial Blood Oxygen Content 14.0 Vol % Arterial Blood 1.3 % Carboxyhemoglobin Arterial Blood Methemoglobin 1.1 % Blood Gas Hemoglobin 10.3 G/DL Oxygen Delivery Device VENTILATOR Blood Gas Ventilator Setting AC500/20/PEEP7 Blood Gas Inspired Oxygen 45 % Imaging Last Impressions Chest X-Ray 05/22/17 0600 Signed Impressions: Service Date/Time: Monday, May 22, 2017 03:32 - CONCLUSION: No significant change has occurred. Sterling Guevara MD Assessment and Plan Problem List: (1) Acute CHF (congestive heart failure) (2) NSTEMI (non-ST elevated myocardial infarction) (3) CAD (coronary artery disease) (4) High degree atrioventricular block (5) Respiratory failure (6) PNA (pneumonia) (7) Ischemic cardiomyopathy Assessment and Plan No new cardiac issues. Remains stable p MV PCI, no recurrent bradycardia. Renal fx stable, continue to monitor. BP stable on carvedilol and lisinopril. Continue therapy for pneumonia, still w copious secretions. D/w patient's son. Problem Qualifiers (1) PNA (pneumonia): Qualified Code: J18.9 - Pneumonia of left lung due to infectious organism, unspecified part of lung Mg Daly MD May 22, 2017 17:30
[2017-05-22] MEDS: LISINOPRIL 10 MG TAB PO SCH (18:48)
[2017-05-22] MEDS: NYSTATIN SUSP 500,000 U/5 ML CUP SWISH-SWAL SCH (20:46)
[2017-05-22] MEDS: ATORVASTATIN 10 MG TAB PO SCH (20:46)
[2017-05-23] VITALS (25 sets, daily range): BP systolic 114–164; BP diastolic 53–70; PULSE 49–82; RESP 20–49; TEMP 99.1–100.2; O2SAT 89–99
[2017-05-23] MEDS: DEXMEDETOMIDINE INJ 200 MCG in SODIUM CHLORIDE 0.9% INJ 50 ML IV SCH ×2 (02:35→07:45)
[2017-05-23 05:15] LABS: BLOOD GAS BASE EXCESS -3.4 mmol/L (-2-2); BLOOD GAS CARBOXYHEMOGLOBIN 1.3 % (0-4); BLOOD GAS HCO3 20 mmol/L (22-26); BLOOD GAS METHEMOGLOBIN 1.1 % (0-2); BLOOD GAS O2 HGB SATURATION 94 % (90-100); BLOOD GAS OXYGEN CONTENT 17.6 Vol % (12.0-20.0); BLOOD GAS PCO2 32 mmHg (38-42); BLOOD GAS PO2 81 mmHg (61-120); BLOOD GAS TOTAL HGB 13.4 G/DL (12.0-16.0); CRITICAL VALUE NO; OXYGEN DEVICE VENTILATOR; TEMP CORR TO 98.6
[2017-05-23 05:16] LABS: DRAW SITE RT RADIAL; FIO2 50 %; NUMBER OF ARTERIAL PUNCTURES 1; STAT NO; VENT SETTINGS AC20/500/+7
[2017-05-23 05:49] LABS: AUTOMATED NEUTROPHIL # 6.4 TH/MM3 (1.8-7.7); BASOPHIL % 0.4 % (0.0-2.0); EOSINOPHIL # 0.2 TH/MM3 (0-0.4); EOSINOPHIL % 2.9 % (0.0-4.0); HEMATOCRIT 23.4 % (35.0-46.0); HEMO FLAGS DIFF FINAL; LYMPH % 9.7 % (9.0-44.0); LYMPHOCYTE # 0.8 TH/MM3 (1.0-4.8); MEAN CELL VOLUME 84.8 FL (80.0-100.0); MEAN CORPUSCULAR HEMOGLOBIN 28.5 PG (27.0-34.0); MEAN CORPUSCULAR HGB CONC 33.6 % (32.0-36.0); MONO % 5.2 % (0.0-8.0); NEUT % 81.8 % (16.0-70.0); PLATELET COUNT 173 TH/MM3 (150-450); RED BLOOD COUNT 2.76 MIL/MM3 (4.00-5.30); RED CELL DISTRIBUTION WIDTH 15.6 % (11.6-17.2); WHITE BLOOD COUNT 7.8 TH/MM3 (4.0-11.0)
[2017-05-23 06:22] LABS: BICARBONATE 23.8 MEQ/L (21.0-32.0); MAGNESIUM 2.5 MG/DL (1.5-2.5); POTASSIUM 3.9 MEQ/L (3.5-5.1)
[2017-05-23] MEDS ORDERED: POTASSIUM CHLORIDE 25 MEQ EFFERVESCENT TAB PO PRN (07:30)
[2017-05-23] MEDS ORDERED: POTASSIUM PHOSPHATE INJ 30 MMOL in SODIUM CHLOR 0.9% 250 ML INJ 250 ML IV PRN (07:30)
[2017-05-23] MEDS ORDERED: SODIUM PHOSPHATE INJ 30 MMOL in SODIUM CHLOR 0.9% 250 ML INJ 240 ML IV PRN (07:30)
[2017-05-23] MEDS ORDERED: POTASSIUM PHOSPHATE MONOBASIC 500 MG TAB PO PRN (07:30)
[2017-05-23] MEDS ORDERED: POTASSIUM PHOSPHATE MONOBASIC 500 MG TAB PO/TUBE PRN (07:30)
[2017-05-23] MEDS ORDERED: POTASSIUM CHLOR 20 MEQ PREMIX 100 ML IV PRN ×2 (07:30)
[2017-05-23] MEDS ORDERED: POTASSIUM CHLOR 40 MEQ PREMIX 100 ML IV PRN ×2 (07:30)
[2017-05-23] MEDS ORDERED: MAGNESIUM OXIDE 400 MG TAB PO PRN (07:30)
[2017-05-23] MEDS ORDERED: MAGNESIUM SULFATE INJ 2 GM in SODIUM CHLORIDE 0.9% INJ 96 ML IV PRN (07:30)
[2017-05-23] MEDS ORDERED: MAGNESIUM SULFATE INJ 4 GM in SODIUM CHLORIDE 0.9% INJ 92 ML IV PRN (07:30)
[2017-05-23] MEDS: PROPOFOL 1000 MG/100 ML IV SCH ×3 (07:43→23:59)
[2017-05-23] MEDS: INSULIN ASPART SUPPLEMENTAL SCALE SQ SCH ×4 (07:44→21:00)
[2017-05-23] MEDS: CHLORHEXIDINE 0.12% (ORAL KIT) 15 ML CUP MT SCH ×2 (08:00→20:00)
[2017-05-23] MEDS: LEVOFLOXACIN 750 MG PREMIX INJ 150 ML IV SCH (08:41)
[2017-05-23] MEDS: HEPARIN SODIUM - SQ 10,000 UNITS/ML VIAL SQ SCH ×2 (08:48→20:05)
[2017-05-23] MEDS: hydrALAZINE HCL 25 MG TAB PO SCH ×3 (08:48→18:29)
[2017-05-23] MEDS: ASPIRIN 81 MG CHEW TAB PO SCH (08:48)
[2017-05-23] MEDS: NYSTATIN SUSP 500,000 U/5 ML CUP SWISH-SWAL SCH ×4 (08:48→20:05)
[2017-05-23] MEDS: TICAGRELOR 90 MG TAB PO SCH ×2 (08:49→20:00)
[2017-05-23] MEDS: busPIRone HCL 10 MG TAB PO SCH ×2 (08:54→19:57)
[2017-05-23] MEDS: SODIUM CHLORIDE 0.9% FLUSH 10 ML FLUSH IV FLUSH SCH ×2 (09:00→20:06)
--- NOTE | 2017-05-23 10:00 | HHI.IDPN ---
Subjective Subjective Remarks Patient is a 81-year-old female, presented to the hospital complaining of cough , shortness of breath and chest tightness for one week. She was bringing up some whitish phlegm. She had worsening shortness of breath and presented to the hospital for further evaluation and treatment. She has had chills the night of admission. No nausea or vomiting or any urinary complaints. On presentation she ruled in for an IA. She had high grade AV block, and underwent emergent cardiac catheterization. She had some interventions done, and she also had placement of a temporary pacemaker. He ended up getting intubated. She's been intubated since. She had the fever initially, and that has improved, however since yesterday she started having fevers again. She apparently was having a lot of secretions, and required bronchoscopy yesterday. She is febrile today. She is awake and responding. She is on the vent. Infectious disease consultation has been requested to evaluate the patient. Notes reviewed Temps low grade, better On CPAP, dyspneic Sputum culture with normal respiratory jose alejandro BP ok CXR stable Antibiotics Cefepime Levaquin Vancomycin Past Medical History HTN DM IA CKD stage 3 Past Surgical History Heart stents Cholecystectomy Hysterectomy Allergies: Coded Allergies: Zocor (Verified Allergy, Severe, ARMS SWELL, 05/16/17) Objective . Vital Signs Date Time Temp Pulse Resp B/P Pulse Ox O2 Delivery O2 Flow Rate FiO2 05/23/17 08:08 96 40 05/23/17 08:08 40 05/23/17 06:00 55 05/23/17 04:34 96 50 05/23/17 04:00 54 05/23/17 04:00 99.5 61 49 122/55 98 05/23/17 04:00 50 05/23/17 02:00 54 05/23/17 00:32 94 65 05/23/17 00:00 99.8 82 30 135/56 89 05/23/17 00:00 82 05/23/17 00:00 65 05/22/17 22:00 61 05/22/17 20:31 95 45 05/22/17 20:00 100.2 67 22 133/62 93 05/22/17 20:00 45 05/22/17 20:00 67 05/22/17 18:00 86 05/22/17 17:45 45 05/22/17 16:18 96 45 05/22/17 16:00 84 05/22/17 16:00 45 05/22/17 16:00 100.9 84 26 167/72 97 05/22/17 15:00 80 26 166/72 96 05/22/17 14:00 82 30 143/84 96 05/22/17 14:00 82 05/22/17 13:01 76 23 130/62 96 05/22/17 13:00 76 25 96 05/22/17 12:31 96 45 05/22/17 12:00 71 05/22/17 12:00 45 05/22/17 12:00 99.3 71 21 147/67 97 05/22/17 11:00 74 26 139/62 95 05/22/17 10:00 68 05/22/17 10:00 99.4 68 23 142/63 96 05/22/17 10:00 45 05/22/17 05/22/17 05/23/17 15:00 23:00 07:00 Intake Total 590 ml 659 ml 516 ml Output Total 550 ml 450 ml 200 ml Balance 40 ml 209 ml 316 ml IV Total 423 ml 380 ml 329 ml Tube Feeding 167 ml 219 ml 187 ml Other 60 ml Output Urine Total 550 ml 450 ml 200 ml # Bowel Movements 1 1 . Laboratory Tests Test 05/22/17 05/23/17 04:52 04:20 White Blood Count 7.8 TH/MM3 7.8 TH/MM3 Red Blood Count 2.98 MIL/MM3 2.76 MIL/MM3 Hemoglobin 8.2 GM/DL 7.9 GM/DL Hematocrit 25.6 % 23.4 % Mean Corpuscular Volume 86.0 FL 84.8 FL Mean Corpuscular Hemoglobin 27.7 PG 28.5 PG Mean Corpuscular Hemoglobin 32.1 % 33.6 % Concent Red Cell Distribution Width 15.9 % 15.6 % Platelet Count 189 TH/MM3 173 TH/MM3 Mean Platelet Volume 7.4 FL 7.7 FL Neutrophils (%) (Auto) 79.6 % 81.8 % Lymphocytes (%) (Auto) 11.6 % 9.7 % Monocytes (%) (Auto) 5.6 % 5.2 % Eosinophils (%) (Auto) 2.6 % 2.9 % Basophils (%) (Auto) 0.6 % 0.4 % Neutrophils # (Auto) 6.2 TH/MM3 6.4 TH/MM3 Lymphocytes # (Auto) 0.9 TH/MM3 0.8 TH/MM3 Monocytes # (Auto) 0.4 TH/MM3 0.4 TH/MM3 Eosinophils # (Auto) 0.2 TH/MM3 0.2 TH/MM3 Basophils # (Auto) 0.0 TH/MM3 0.0 TH/MM3 CBC Comment DIFF FINAL DIFF FINAL Differential Comment Laboratory Tests Test 05/22/17 05/23/17 04:52 04:20 Sodium Level 145 MEQ/L 146 MEQ/L Potassium Level 3.7 MEQ/L 3.9 MEQ/L Chloride Level 114 MEQ/L 115 MEQ/L Carbon Dioxide Level 21.7 MEQ/L 23.8 MEQ/L Anion Gap 9 MEQ/L 7 MEQ/L Blood Urea Nitrogen 26 MG/DL 22 MG/DL Creatinine 1.23 MG/DL 1.10 MG/DL Estimat Glomerular Filtration 42 ML/MIN 48 ML/MIN Rate Random Glucose 103 MG/DL 166 MG/DL Calcium Level 8.2 MG/DL 8.4 MG/DL Phosphorus Level 4.0 MG/DL 2.4 MG/DL Magnesium Level 2.7 MG/DL 2.5 MG/DL Microbiology Date/Time Procedure Status Source Growth 05/20/17 13:30 Cancelled Mini Bronchoalveolar Lavage 05/20/17 13:30 Cancelled Mini Bronchoalveolar Lavage 05/20/17 13:30 Gram Stain - Final Resulted Bronchial Washings Left Lower Lobe 05/20/17 13:30 Bronchial Culture - Preliminary Resulted Bronchial Washings Left Lower Lobe LIGHT GROWTH NORMAL RESPIRATORY JOSE ALEJANDRO... 05/20/17 13:30 Gram Stain - Final Resulted Bronchial Washings Bronchial 05/20/17 13:30 Bronchial Culture - Preliminary Resulted Bronchial Washings Bronchial RARE GROWTH NORMAL RESPIRATORY JOSE ALEJANDRO ... 05/20/17 20:18 Gram Stain - Final Complete Sputum Endotracheal 05/20/17 20:18 Sputum Culture - Final Complete Sputum Endotracheal LIGHT GROWTH NORMAL RESPIRATORY JOSE ALEJANDRO 05/20/17 20:18 Influenza Types A,B Antigen (SUZANNE) - Final Complete Nasal Washing NEGATIVE FOR FLU A AND B ANTIGEN.... 05/20/17 20:18 Acid Fast Stain - Final Resulted Sputum Endotracheal NO ACID FAST BACILLI SEEN 05/20/17 20:18 Mycobacterial Culture Resulted Sputum Endotracheal Pending 05/20/17 20:18 Fungal Smear - Final Resulted Sputum Endotracheal NO FUNGAL ELEMENTS SEEN. 05/20/17 20:18 Fungal Culture Resulted Sputum Endotracheal Pending 05/20/17 20:30 Legionella Antigen - Final Complete Urine Catheterized Urine PRESUMPTIVE NEGATIVE FOR LEGIONELLA P... 05/20/17 20:30 Streptococcus pneumoniae Antigen (M - Final Complete Urine Catheterized Urine PRESUMPTIVE NEGATIVE FOR STREPTOCOCCU... 05/21/17 16:20 Urine Culture - Preliminary Resulted Urine Catheterized Urine NO GROWTH IN 24 HOURS. 05/21/17 19:30 Aerobic Blood Culture - Preliminary Resulted Blood Peripheral NO GROWTH IN 1 DAY 05/21/17 19:30 Anaerobic Blood Culture - Preliminary Resulted Blood Peripheral NO GROWTH IN 1 DAY 05/21/17 19:35 Aerobic Blood Culture - Preliminary Resulted Blood Peripheral NO GROWTH IN 1 DAY 05/21/17 19:35 Anaerobic Blood Culture - Preliminary Resulted Blood Peripheral NO GROWTH IN 1 DAY Imaging Last 72 hours Impressions Chest X-Ray 05/22/17 0600 Signed Impressions: Service Date/Time: Monday, May 22, 2017 03:32 - CONCLUSION: No significant change has occurred. Sterling Guevara MD Chest X-Ray 05/21/17 0600 Signed Impressions: Service Date/Time: Sunday, May 21, 2017 02:53 - CONCLUSION: Improved aeration of the left lower lobe. Sterling Guevara MD Chest X-Ray 05/20/17 0600 Signed Impressions: Service Date/Time: Saturday, May 20, 2017 03:36 - CONCLUSION: 1. Patchy alveolar disease characteristic of edema or pneumonia. There has been no significant change when compared to the prior exam. Chano Bullock MD Chest X-Ray 05/20/17 0000 Signed Impressions: Service Date/Time: Saturday, May 20, 2017 15:35 - CONCLUSION: No significant change. Bilateral infiltrates persist. No pneumothorax or other acute complication seen post bronchoscopy. David Rodriguez MD Chest X-Ray 05/20/17 0000 Signed Impressions: Service Date/Time: Saturday, May 20, 2017 13:49 - CONCLUSION: 1. Patchy bilateral pulmonary infiltrates persist without significant change. David Rodriguez MD Physical Exam GENERAL: Awake, on the vent, on precedex, following commands. Dyspneic this morning SKIN: Warm and dry. No generalized rash, no ecchymoses and no evidence of embolic lesions. HEAD: Atraumatic. Normocephalic. No temporal wasting, or tenderness. EYES: [place] conjunctiva. No petechia or hemorrhage. Pupils equal, round and reactive to light. Extraocular movements full and intact. No scleral icterus. No injection or drainage. EARS, NOSE AND THROAT: Nose without bleeding or purulent nasal discharge. No sinus tenderness. Orally intubated. Mucous membranes pink and moist. NECK: Trachea midline. Supple and not tender, no meningeal signs CARDIOVASCULAR: Regular rate and rhythm. No murmurs, rubs or gallops heard RESPIRATORY: Has diffuse rhonchi ABDOMEN: Soft, non-tender, nondistended. Bowel sounds present and normoactive. No guarding. No rebound. No organomegaly. Stable ecchymoses on her R groin where she had her cardiac cath EXTREMITIES: No clubbing, cyanosis, or edema. No joint effusion, has good ROM. No calf tenderness. Well perfused and warm. NEUROLOGICAL: Non-focal PSYCHIATRIC: cooperative. LINE: No evidence of infection : Garcia in place, urine looks clear Assessment & Plan Remarks IMPRESSION Recurrent fever likely due to VAP - temp seem to be trending down Initial presentation with CAP, has been on vent since 05/17 IA, S/P intervention Respiratory failure RECOMMENDATION Follow C/S Continue cefepime and Levaquin for GNR coverage Stop Vanco Follow temps Monitor progress Weaning per CCM Nani Godinez MD May 23, 2017 10:00
--- NOTE | 2017-05-23 10:17 | HHI.CCPN ---
Subjective Remarks/Hospital Course 81-year-old very pleasant female with a history of HTN, atrial fibrillation, DM , [place], and CKD stage 3 presented to the ED with complaints of a cough, shortness of breath and chest tightness for the last week. She states she has had a productive cough with white sputum production with increasing shortness of breath. She was admitted to ICU and while in the unit she became significantly bradycardic due to complete heart block, also in respiratory distress and severe hypoxemia. She was emergently intubated and taken to cardiac catheterization lab for retrograde heart catheterization with left ventriculography and selective coronary angiography, angioplasty and stenting of the distal left anterior descending artery and mid left anterior descending artery, and angioplasty and stenting of the proximal/ostial right coronary artery. Also transvenous pacemaker placement. Subjective: 05/18: The patient underwent cardiac stenting yesterday, maintain some intubated, with transvenous pacemaker. Dopamine has been weaned off this afternoon. Plan for CPAP trials with planned extubation in the a.m.. Heparin has been discontinued this afternoon with plans for removal of venous sheath. The patient remains hemodynamically stable. 05/19: Femoral sheath with transvenous pacemaker removed last evening. Hemodynamically stable. Carvedilol and lisinopril initiated this a.m.. Patient sedation change to Precedex in anticipation for possible extubation. The patient has tolerated CPAP trials greater than 12 hours, however failed SBT this evening. Patient's hemoglobin was noted to be 7.7 this a.m. patient received 1 unit of packed red blood cells CBC post transfusion pending. 05/20: Afebrile. Overnight the patient was noted to have thick secretions, and was lavaged 4. The patient had increasing requirements for sedation in oxygenation, CPAP trials were discontinued at 10 PM secondary to thick copious secretions. Plan for fiberoptic bronchoscopy with BAL today. Hemoglobin stable , patient remains hemodynamically stable off all pressors. 05/21: Patient febrile, copious thick secretions noted. ID following , expansion of antibiotic coverage. Initiation of tube feeds. Patient remains hemodynamically stable. 05/22: Tmax 99.9. No acute issues overnight the patient continues on Precedex and propofol infusions. She remains alert GCS 11 T communicating by writing, and responsive to yes and no questions. Patient continues to have bilateral lung consolidations, antibiotics expanded per ID. Cultures continue to be pending. Patient tolerating tube feeds will advance as tolerated. 05/23:TMax 100.9. Cultures are pending. C. difficile antigen ordered .The patient is awake and responsive on Precedex and propofol infusions. The patient tolerated CPAP trials of 8 hours yesterday. Chest x-ray pending. Tube feedings increased. Hemodynamically stable. Objective Vital Signs Date Time Temp Pulse Resp B/P Pulse Ox O2 Delivery O2 Flow Rate FiO2 05/23/17 08:08 96 40 05/23/17 06:00 55 05/23/17 04:00 99.5 49 122/55 Intake and Output 05/22/17 05/22/17 05/23/17 08:00 16:00 00:00 Intake Total 346 ml 590 ml 659 ml Output Total 250 ml 550 ml 450 ml Balance 96 ml 40 ml 209 ml Result Diagram: 05/23/17 0420 05/23/17 0420 Other Results Microbiology Date/Time Procedure Status Source Growth 05/20/17 20:18 Gram Stain - Final Complete Sputum Endotracheal 05/20/17 20:18 Sputum Culture - Final Complete Sputum Endotracheal LIGHT GROWTH NORMAL RESPIRATORY MONTY 05/20/17 20:18 Influenza Types A,B Antigen (SUZANNE) - Final Complete Nasal Washing NEGATIVE FOR FLU A AND B ANTIGEN.... 05/20/17 20:30 Legionella Antigen - Final Complete Urine Catheterized Urine PRESUMPTIVE NEGATIVE FOR LEGIONELLA P... 05/20/17 20:30 Streptococcus pneumoniae Antigen (M - Final Complete Urine Catheterized Urine PRESUMPTIVE NEGATIVE FOR STREPTOCOCCU... Laboratory Tests Test 05/23/17 05:06 Blood Gas Puncture Site RT RADIAL Blood Gas Patient Temperature 98.6 Blood Gas HCO3 20 mmol/L (22-26) Blood Gas Base Excess -3.4 mmol/L (-2-2) Blood Gas Oxygen Saturation 94 % (90-100) Arterial Blood pH 7.42 (7.380-7.420) Arterial Blood Partial 32 mmHg (38-42) Pressure CO2 Arterial Blood Partial 81 mmHg Pressure O2 (61-120) Arterial Blood Oxygen Content 17.6 Vol % (12.0-20.0) Arterial Blood 1.3 % (0-4) Carboxyhemoglobin Arterial Blood Methemoglobin 1.1 % (0-2) Blood Gas Hemoglobin 13.4 G/DL (12.0-16.0) Oxygen Delivery Device VENTILATOR Blood Gas Ventilator Setting AC20/500/+7 Blood Gas Inspired Oxygen 50 % Objective Remarks GENERAL: Well-nourished, well-developed patient, awake, following commands on propofol and Precedex infusions SKIN: Warm and dry. HEAD: Normocephalic. EYES: No scleral icterus. No injection or drainage. NECK: Supple, trachea midline. No JVD or lymphadenopathy. CARDIOVASCULAR: Regular rate and rhythm without murmurs, gallops, or rubs. RESPIRATORY: Breath sounds equal bilaterally. No accessory muscle use. Mechanical ventilation GASTROINTESTINAL: Abdomen soft, protuberant ,non-tender, nondistended. Thrush noted on lateral distal tongue MUSCULOSKELETAL: No cyanosis, or edema. BACK: Nontender without obvious deformity. NEURO EXAM: GCS: M6 V1E4 (GCS 11T) Mental Status: The patient is sedated and intubated, but responsive on Precedex and propofol infusion Cranial Nerves: Unable to obtain patient is sedated and intubated Reflexes: Biceps, patellar, and Achilles are 2/4 bilaterally. No clonus. Sensation: Unobtainable due to sedation and intubation Motor: Good muscle tone. Cerebellar: [id number] and [id number] unable to examine A/P Assessment and Plan Ventilator dependent Respiratory failure - Intubated for an airway protection, currently on propofol and Precedex infusions for ventilator synchrony - Continue mechanical ventilation - Continue weaning when hemodynamically and neurologically stable - Vent bundle - DuoNeb's care -CPAP trials as tolerated Community-acquired Pneumonia -Secretions diminished -05/20 fiberoptic bronchoscopy with [id number] culture results -Antibiotics per ID recommendation- Dr. Godinez -Legionella, pneumococcal, influenza A and B antigens- results negative -Repeat urine and blood cultures pending. Bronchial washings pending Coronary artery disease - 05/17 Status post angioplasty and stents of the distal LAD and mid left anterior descending artery, and angioplasty and stenting of the proximal/ostial right coronary artery Resumed 05/19 - Aspirin - Brilinta - Atorvastatin - Cardiology following Dr. Daly, low-dose carvedilol and lisinopril initiated 05/19, no dynamically stable AV block-resolved - Status post temporary transvenous pacemaker placement-removed 05/18 - Monitor changes after revascularization Diabetes mellitus - Insulin sliding scale, low dose regimen Oral Thrush - Nystatin QID Hypophosphatemia -Electrolyte replacement protocol, 30mmol k phos Hypertension - Clonidine and hydralazine when necessary Chronic kidney disease stage 3 - Creatinine improved - Monitor I's and O - Monitor Electrolytes and creatinine level DVT GI prophylaxis - Teds SCDs - Pepcid Dispo: Discussed with daughter, and RADIO PRESENTER at bedside. Critical Care: This patient remains critically ill with one or more organ systems which are or may become a threat to life. I have spent in excess of 35 minutes discontinuously in the care and management of this patient. This time is exclusive of procedures, and includes, but is not limited to, evaluation of the patient, review of the medical record, discussions with family, consultants, nursing staff, or respiratory therapy, and documentation in the medical record. Physician María Elena Kirkpatrick MD May 23, 2017 10:17
--- NOTE | 2017-05-23 10:24 | RADRPT ---
EXAM DATE/TIME: 05/23/2017 09:23 [facility] COMPARISON: CHEST SINGLE AP, May 22, 2017, 3:32. INDICATIONS : Short of breath. MEDICAL HISTORY : Myocardial infarction. Hypertension Diabetes mellitus type II. SURGICAL HISTORY : None. ENCOUNTER: Initial ACUITY: 1 week PAIN SCORE: Non-responsive. LOCATION: Bilateral chest FINDINGS: Consolidating airspace disease appears less dense within the right base but is otherwise unchanged. Heart and mediastinum are stable. Support devices which include an endotracheal tube and a nasogastric tube remain in position. CONCLUSION: Bilateral airspace disease with slight clearing in the right base. Héctor Beasley MD on May 23, 2017 at 10:17 Board Certified Radiologist. This report was verified electronically.
[2017-05-23] MEDS: cloNIDine HCL 0.1 MG TAB PO SCH ×2 (11:04→19:57)
[2017-05-23] MEDS: CARVEDILOL 6.25 MG TAB PO SCH ×2 (11:04→20:04)
[2017-05-23] MEDS: CEFEPIME INJ 2,000 MG in SODIUM CHLORIDE 0.9% INJ 100 ML IV SCH (13:01)
--- NOTE | 2017-05-23 18:23 | PD.CARD.PN ---
Subjective Subjective Remarks Intubated, sedated, tolerated over 7 hrs of CPAP today, less pulm secretions Objective Medications Current Medications Medications (Trade) Dose Ordered Sig/Renaldo Route Start Time Stop Time Status Last Admin (NS Flush) 2 ml UNSCH PRN IV FLUSH 05/17/17 00:30 (NS Flush) 2 ml BID IV FLUSH 05/17/17 09:00 05/23/17 09:00 (Narcan Inj) 0.4 mg UNSCH PRN IV 05/17/17 00:30 Miscellaneous Information Patient in critical care unit? Ass... [id number] .XX 05/17/17 02:45 (Norvasc) 5 mg BID PO 05/17/17 09:00 Hold 05/17/17 07:46 (Buspar) 30 mg BID PO 05/17/17 09:00 05/23/17 08:54 (Catapres) 0.1 mg BID PO 05/17/17 09:00 05/23/17 11:04 (Cardizem Cd) 240 mg DAILY PO 05/17/17 09:00 Hold 05/17/17 07:48 (Apresoline) 10 mg TID PO 05/17/17 09:00 05/23/17 13:01 (Glucophage) 750 mg BIDPC PO 05/17/17 09:00 Hold 05/17/17 16:32 (Cozaar) 100 mg DAILY PO 05/17/17 09:00 Hold 05/17/17 07:47 (Hydrodiuril) 12.5 mg DAILY PO 05/17/17 09:00 Hold 05/17/17 07:48 Miscellaneous 1 ea 1 ea UNSCH PRN OTHER 05/17/17 05:30 (Levaquin 750 Mg Premix Inj) 150 ml @ 100 mls/hr Q48H IV 05/19/17 08:00 05/23/17 08:41 (Nitrostat Sl) 0.4 mg Q5M PRN SL 05/17/17 09:15 05/17/17 09:28 (Xanax) 0.25 mg Q8H PRN PO 05/17/17 10:00 05/17/17 16:43 (Tessalon) 100 mg TID PRN PO 05/17/17 09:15 05/17/17 16:43 (Aspirin Chew) 81 mg DAILY PO 05/18/17 09:00 05/23/17 08:48 (Brilinta) 90 mg BID PO 05/17/17 21:00 05/23/17 08:49 (Lipitor) 80 mg HS PO 05/17/17 21:00 05/22/17 20:46 (Tears Naturale Opth Soln) 1 drop Q4H PRN EACH EYE 05/18/17 16:15 (Peridex 0.12% Liq) 15 ml BID@08,20 MT 05/18/17 20:00 05/23/17 08:00 (Prinivil) 10 mg Q24H PO 05/18/17 19:15 05/22/17 18:48 Carvedilol 6.25 mg 6.25 mg BID PO 05/18/17 19:15 05/23/17 11:04 Cefepime HCl 2000 mg/Sodium Chloride 100 ml @ 200 mls/hr Q12H IV 05/19/17 00:00 05/23/17 13:01 (Precedex Inj/NS Inj) 52 ml @ 0 mls/hr TITRATE IV 05/19/17 07:45 05/23/17 07:45 Heparin Sodium (Porcine) 5000 units 5,000 units Q12HR SQ 05/19/17 21:00 05/23/17 08:48 (Diprivan 1000 Mg/100ml Inj) 100 ml @ 0 mls/hr TITRATE IV 05/20/17 11:30 05/23/17 13:01 (Tylenol) 650 mg Q6H PRN PO 05/20/17 22:00 05/21/17 04:19 (D50w (Vial) Inj) 50 ml UNSCH PRN IV 05/22/17 13:15 (Glucagon Inj) 1 mg UNSCH PRN OTHER 05/22/17 13:15 Nystatin 5 ml 5 ml QID SWISH-SWAL 05/22/17 21:00 05/23/17 13:01 Potassium Chloride 100 ml @ 50 mls/hr Q2H PRN IV 05/23/17 07:30 (KCl 20 Meq Premix Inj) 100 ml @ 50 mls/hr Q2H PRN IV 05/23/17 07:30 Potassium Bicarb/ Potassium Chloride 50 meq 50 meq UNSCH PRN PO 05/23/17 07:30 Potassium Chloride 100 ml @ 25 mls/hr UNSCH PRN IV 05/23/17 07:30 Potassium Chloride 100 ml @ 50 mls/hr Q2H PRN IV 05/23/17 07:30 (Magnesium Sulfate Inj/NS Inj) 100 ml @ 50 mls/hr UNSCH PRN IV 05/23/17 07:30 Magnesium Oxide 800 mg 800 mg UNSCH PRN PO 05/23/17 07:30 (Magnesium Sulfate Inj/NS Inj) 100 ml @ 50 mls/hr UNSCH PRN IV 05/23/17 07:30 Potassium Phosphate 2000 mg 2,000 mg Q4H PRN PO 05/23/17 07:30 (Sodium Phosphate Inj/NS 250 ml Inj) 250 ml @ 42 mls/hr UNSCH PRN IV 05/23/17 07:30 05/23/17 14:50 Potassium Phosphate 2000 mg 2,000 mg UNSCH PRN PO/TUBE 05/23/17 07:30 (Potassium Phosphate Inj/NS 250 ml Inj) 260 ml @ 42 mls/hr UNSCH PRN IV 05/23/17 07:30 Vital Signs / I&O Vital Signs Date Time Temp Pulse Resp B/P Pulse Ox O2 Delivery O2 Flow Rate FiO2 05/23/17 18:00 53 05/23/17 17:00 51 20 140/66 93 05/23/17 16:30 50 05/23/17 16:01 99.9 55 24 156/67 93 05/23/17 16:00 45 05/23/17 16:00 53 05/23/17 15:00 64 32 164/70 94 05/23/17 14:00 62 28 160/69 95 05/23/17 14:00 62 05/23/17 13:00 58 30 138/63 95 05/23/17 12:22 95 40 05/23/17 12:01 100.2 71 30 127/57 99 05/23/17 12:00 69 05/23/17 12:00 45 05/23/17 11:00 62 28 150/65 93 05/23/17 10:00 62 27 147/65 94 05/23/17 10:00 62 05/23/17 09:01 61 26 155/67 95 05/23/17 08:08 96 40 05/23/17 08:08 40 05/23/17 08:00 99.1 50 20 121/56 97 05/23/17 08:00 50 05/23/17 08:00 50 05/23/17 07:00 49 20 124/58 96 05/23/17 06:00 55 05/23/17 04:34 96 50 05/23/17 04:00 54 05/23/17 04:00 99.5 61 49 122/55 98 05/23/17 04:00 50 05/23/17 02:00 54 05/23/17 00:32 94 65 05/23/17 00:00 99.8 82 30 135/56 89 05/23/17 00:00 82 05/23/17 00:00 65 05/22/17 22:00 61 05/22/17 20:31 95 45 05/22/17 20:00 100.2 67 22 133/62 93 05/22/17 20:00 45 05/22/17 20:00 67 I/O 05/22/17 05/22/17 05/22/17 05/23/17 05/23/17 05/23/17 07:00 15:00 23:00 07:00 15:00 23:00 Intake Total 1241 ml 590 ml 659 ml 516 ml 861 ml Output Total 850 ml 550 ml 450 ml 200 ml 400 ml Balance 391 ml 40 ml 209 ml 316 ml 461 ml IV Total 982 ml 423 ml 380 ml 329 ml 542 ml Tube Feeding 139 ml 167 ml 219 ml 187 ml 319 ml Other 120 ml 60 ml Output Urine Total 850 ml 550 ml 450 ml 200 ml 400 ml # Bowel Movements 1 1 1 0 Physical Exam GENERAL: Intubated, awake SKIN: Warm and dry. HEAD: Normocephalic. EYES: No scleral icterus. No injection or drainage. NECK: Supple, trachea midline. No JVD or lymphadenopathy. CARDIOVASCULAR: Regular rate and rhythm without murmurs, gallops, or rubs. RESPIRATORY: Breath sounds equal bilaterally. No accessory muscle use. GASTROINTESTINAL: Abdomen soft, non-tender, nondistended. MUSCULOSKELETAL: No cyanosis, or edema. Groin stable Laboratory Laboratory Tests Test 05/23/17 05/23/17 05/23/17 04:20 05:06 11:17 White Blood Count 7.8 TH/MM3 Red Blood Count 2.76 MIL/MM3 Hemoglobin 7.9 GM/DL Hematocrit 23.4 % Mean Corpuscular Volume 84.8 FL Mean Corpuscular Hemoglobin 28.5 PG Mean Corpuscular Hemoglobin 33.6 % Concent Red Cell Distribution Width 15.6 % Platelet Count 173 TH/MM3 Mean Platelet Volume 7.7 FL Neutrophils (%) (Auto) 81.8 % Lymphocytes (%) (Auto) 9.7 % Monocytes (%) (Auto) 5.2 % Eosinophils (%) (Auto) 2.9 % Basophils (%) (Auto) 0.4 % Neutrophils # (Auto) 6.4 TH/MM3 Lymphocytes # (Auto) 0.8 TH/MM3 Monocytes # (Auto) 0.4 TH/MM3 Eosinophils # (Auto) 0.2 TH/MM3 Basophils # (Auto) 0.0 TH/MM3 CBC Comment DIFF FINAL Differential Comment Sodium Level 146 MEQ/L Potassium Level 3.9 MEQ/L Chloride Level 115 MEQ/L Carbon Dioxide Level 23.8 MEQ/L Anion Gap 7 MEQ/L Blood Urea Nitrogen 22 MG/DL Creatinine 1.10 MG/DL Estimat Glomerular Filtration 48 ML/MIN Rate Random Glucose 166 MG/DL Calcium Level 8.4 MG/DL Phosphorus Level 2.4 MG/DL 1.9 MG/DL Magnesium Level 2.5 MG/DL Blood Gas Puncture Site RT RADIAL Blood Gas Patient Temperature 98.6 Blood Gas HCO3 20 mmol/L Blood Gas Base Excess -3.4 mmol/L Blood Gas Oxygen Saturation 94 % Arterial Blood pH 7.42 Arterial Blood Partial 32 mmHg Pressure CO2 Arterial Blood Partial 81 mmHg Pressure O2 Arterial Blood Oxygen Content 17.6 Vol % Arterial Blood 1.3 % Carboxyhemoglobin Arterial Blood Methemoglobin 1.1 % Blood Gas Hemoglobin 13.4 G/DL Oxygen Delivery Device VENTILATOR Blood Gas Ventilator Setting AC20/500/+7 Blood Gas Inspired Oxygen 50 % Imaging Last Impressions Chest X-Ray 05/23/17 0000 Signed Impressions: Service Date/Time: Tuesday, May 23, 2017 09:23 - CONCLUSION: Bilateral airspace disease with slight clearing in the right base. Héctor Beasley MD Assessment and Plan Problem List: (1) Acute CHF (congestive heart failure) (2) NSTEMI (non-ST elevated myocardial infarction) (3) CAD (coronary artery disease) (4) High degree atrioventricular block (5) Respiratory failure (6) PNA (pneumonia) (7) Ischemic cardiomyopathy Assessment and Plan Mild SB during sleep. Remains stable p MV PCI, no recurrent bradycardia. Renal fx stable, continue to monitor. Continue carvedilol and lisinopril. Continue therapy for pneumonia. Wean vent as tolerated. Problem Qualifiers (1) PNA (pneumonia): Qualified Code: J18.9 - Pneumonia of left lung due to infectious organism, unspecified part of lung Mg Daly MD May 23, 2017 18:23
[2017-05-23] MEDS: LISINOPRIL 10 MG TAB PO SCH (19:58)
[2017-05-23] MEDS: ATORVASTATIN 10 MG TAB PO SCH (20:04)
[2017-05-24] VITALS (26 sets, daily range): BP systolic 122–178; BP diastolic 60–93; PULSE 47–79; RESP 20–30; TEMP 98–100.5; O2SAT 91–96
[2017-05-24] MEDS: CEFEPIME INJ 2,000 MG in SODIUM CHLORIDE 0.9% INJ 100 ML IV SCH ×2 (00:01→12:22)
[2017-05-24] MEDS: DEXMEDETOMIDINE INJ 200 MCG in SODIUM CHLORIDE 0.9% INJ 50 ML IV SCH ×5 (00:02→22:32)
[2017-05-24] MEDS: ACETAMINOPHEN 325 MG TAB PO PRN (04:18)
--- NOTE | 2017-05-24 04:54 | RADRPT ---
EXAM DATE/TIME: 05/24/2017 03:17 [facility] COMPARISON: CHEST SINGLE AP, May 23, 2017, 9:23. INDICATIONS : Respiratory failure. MEDICAL HISTORY : Myocardial infarction. Hypertension Diabetes mellitus type II. SURGICAL HISTORY : None. ENCOUNTER: Subsequent ACUITY: 1 week PAIN SCORE: Non-responsive. LOCATION: Bilateral chest FINDINGS: Patchy nodular consolidative opacities remain unchanged in the mid to lower lungs. Endotracheal tube and cardiomegaly are again present. No effusion. Osseous structures are intact. CONCLUSION: No significant change has occurred. Sterling Guevara MD on May 24, 2017 at 4:52 Board Certified Radiologist. This report was verified electronically.
[2017-05-24 06:05] LABS: BLOOD GAS BASE EXCESS -2.1 mmol/L (-2-2); BLOOD GAS CARBOXYHEMOGLOBIN 1.4 % (0-4); BLOOD GAS HCO3 22 mmol/L (22-26); BLOOD GAS METHEMOGLOBIN 1.3 % (0-2); BLOOD GAS O2 HGB SATURATION 93 % (90-100); BLOOD GAS OXYGEN CONTENT 14.8 Vol % (12.0-20.0); BLOOD GAS PCO2 33 mmHg (38-42); BLOOD GAS PO2 85 mmHg (61-120); BLOOD GAS TOTAL HGB 11.2 G/DL (12.0-16.0); CRITICAL VALUE NO; OXYGEN DEVICE VENT; TEMP CORR TO 98.6
[2017-05-24 06:06] LABS: DRAW SITE LT RADIAL; FIO2 40 %; NUMBER OF ARTERIAL PUNCTURES 1; STAT NO; ULNAR PULSE PRESENT; VENT SETTINGS SEE COMMENTS
[2017-05-24] MEDS: INSULIN ASPART SUPPLEMENTAL SCALE SQ SCH ×3 (07:00→17:43)
[2017-05-24 07:21] LABS: BICARBONATE 21.9 MEQ/L (21.0-32.0); MAGNESIUM 2.3 MG/DL (1.5-2.5)
[2017-05-24] MEDS: NYSTATIN SUSP 500,000 U/5 ML CUP SWISH-SWAL SCH ×4 (08:41→21:26)
[2017-05-24] MEDS: busPIRone HCL 10 MG TAB PO SCH ×2 (08:41→21:26)
[2017-05-24] MEDS: HEPARIN SODIUM - SQ 10,000 UNITS/ML VIAL SQ SCH ×2 (08:41→21:29)
[2017-05-24] MEDS: ASPIRIN 81 MG CHEW TAB PO SCH (08:42)
[2017-05-24] MEDS: CHLORHEXIDINE 0.12% (ORAL KIT) 15 ML CUP MT SCH ×2 (08:42→21:28)
[2017-05-24] MEDS: cloNIDine HCL 0.1 MG TAB PO SCH ×2 (08:42→21:27)
[2017-05-24] MEDS: CARVEDILOL 6.25 MG TAB PO SCH ×2 (08:42→21:27)
[2017-05-24] MEDS: SODIUM CHLORIDE 0.9% FLUSH 10 ML FLUSH IV FLUSH SCH ×2 (08:42→21:28)
[2017-05-24] MEDS: TICAGRELOR 90 MG TAB PO SCH ×2 (08:42→21:27)
[2017-05-24] MEDS: hydrALAZINE HCL 25 MG TAB PO SCH ×3 (08:42→17:15)
--- NOTE | 2017-05-24 09:33 | HHI.CCPN ---
Subjective Remarks/Hospital Course 81-year-old very pleasant female with a history of HTN, atrial fibrillation, DM , NC, and CKD stage 3 presented to the ED with complaints of a cough, shortness of breath and chest tightness for the last week. She states she has had a productive cough with white sputum production with increasing shortness of breath. She was admitted to ICU and while in the unit she became significantly bradycardic due to complete heart block, also in respiratory distress and severe hypoxemia. She was emergently intubated and taken to cardiac catheterization lab for retrograde heart catheterization with left ventriculography and selective coronary angiography, angioplasty and stenting of the distal left anterior descending artery and mid left anterior descending artery, and angioplasty and stenting of the proximal/ostial right coronary artery. Also transvenous pacemaker placement. Subjective: 05/18: The patient underwent cardiac stenting yesterday, maintain some intubated, with transvenous pacemaker. Dopamine has been weaned off this afternoon. Plan for CPAP trials with planned extubation in the a.m.. Heparin has been discontinued this afternoon with plans for removal of venous sheath. The patient remains hemodynamically stable. 05/19: Femoral sheath with transvenous pacemaker removed last evening. Hemodynamically stable. Carvedilol and lisinopril initiated this a.m.. Patient sedation change to Precedex in anticipation for possible extubation. The patient has tolerated CPAP trials greater than 12 hours, however failed SBT this evening. Patient's hemoglobin was noted to be 7.7 this a.m. patient received 1 unit of packed red blood cells CBC post transfusion pending. 05/20: Afebrile. Overnight the patient was noted to have thick secretions, and was lavaged 4. The patient had increasing requirements for sedation in oxygenation, CPAP trials were discontinued at 10 PM secondary to thick copious secretions. Plan for fiberoptic bronchoscopy with BAL today. Hemoglobin stable , patient remains hemodynamically stable off all pressors. 05/21: Patient febrile, copious thick secretions noted. ID following , expansion of antibiotic coverage. Initiation of tube feeds. Patient remains hemodynamically stable. 05/22: Tmax 99.9. No acute issues overnight the patient continues on Precedex and propofol infusions. She remains alert GCS 11 T communicating by writing, and responsive to yes and no questions. Patient continues to have bilateral lung consolidations, antibiotics expanded per ID. Cultures continue to be pending. Patient tolerating tube feeds will advance as tolerated. 05/23:TMax 100.9. Cultures are pending. C. difficile antigen ordered .The patient is awake and responsive on Precedex and propofol infusions. The patient tolerated CPAP trials of 8 hours yesterday. Chest x-ray pending. Tube feedings increased. Hemodynamically stable. Subjective 05/24: Tolerated PSV trial strep 7 hours yesterday. Currently afebrile. MAXIMUM TEMPERATURE 100.3. Tolerating tube feeds. Positive BM. Objective Vital Signs Date Time Temp Pulse Resp B/P Pulse Ox O2 Delivery O2 Flow Rate FiO2 05/24/17 07:52 40 05/24/17 07:52 95 05/24/17 06:00 58 05/24/17 05:18 18 05/24/17 04:00 100.3 156/70 Intake and Output 05/23/17 05/23/17 05/24/17 08:00 16:00 00:00 Intake Total 516 ml 861 ml 670 ml Output Total 200 ml 400 ml 300 ml Balance 316 ml 461 ml 370 ml Result Diagram: 05/23/17 0420 05/24/17 0516 Other Results Microbiology Date/Time Procedure Status Source Growth 05/21/17 19:35 Aerobic Blood Culture - Preliminary Resulted Blood Peripheral NO GROWTH IN 2 DAYS 05/21/17 19:35 Anaerobic Blood Culture - Preliminary Resulted Blood Peripheral NO GROWTH IN 2 DAYS 05/21/17 16:20 Urine Culture - Final Complete Urine Catheterized Urine NO GROWTH IN 48 HOURS. 05/20/17 20:30 Legionella Antigen - Final Complete Urine Catheterized Urine PRESUMPTIVE NEGATIVE FOR LEGIONELLA P... 05/20/17 20:30 Streptococcus pneumoniae Antigen (M - Final Complete Urine Catheterized Urine PRESUMPTIVE NEGATIVE FOR STREPTOCOCCU... 05/20/17 20:18 Influenza Types A,B Antigen (SUZANNE) - Final Complete Nasal Washing NEGATIVE FOR FLU A AND B ANTIGEN.... 05/20/17 20:18 Gram Stain - Final Complete Sputum Endotracheal 05/20/17 20:18 Sputum Culture - Final Complete Sputum Endotracheal LIGHT GROWTH NORMAL RESPIRATORY MONTY 05/20/17 20:18 Fungal Smear - Final Resulted Sputum Endotracheal NO FUNGAL ELEMENTS SEEN. 05/20/17 20:18 Fungal Culture Resulted Sputum Endotracheal Pending 05/20/17 20:18 Acid Fast Stain - Final Resulted Sputum Endotracheal NO ACID FAST BACILLI SEEN 05/20/17 20:18 Mycobacterial Culture Resulted Sputum Endotracheal Pending 05/20/17 13:30 Cancelled Mini Bronchoalveolar Lavage 05/20/17 13:30 Cancelled Mini Bronchoalveolar Lavage Imaging Last Impressions Chest X-Ray 05/24/17 0600 Signed Impressions: Service Date/Time: May 03:17 - CONCLUSION: No significant change has occurred. Sterling Guevara MD Objective Remarks GENERAL: Well-nourished, well-developed patient, awake, following commands on propofol and dexmedetomidine drips SKIN: Warm and dry. Well perfused HEAD: Normocephalic. EYES: Pupils are equally round and reactive to light and accommodation. No scleral icterus. No injection or drainage. NECK: Supple, trachea midline. No JVD or lymphadenopathy. CARDIOVASCULAR: RRR. S1, S2. No S4. Without murmur RESPIRATORY: Few coarse crackles appreciated throughout all lung boyer. Symmetrical prescription. No wheezing. GASTROINTESTINAL: Abdomen soft, protuberant ,non-tender, hypoactive bowel sounds. Thrush noted on lateral distal tongue MUSCULOSKELETAL: Trace nonpitting lower extremity edema bilaterally. BACK: Nontender without obvious deformity. NEURO EXAM: Cranial nerves II through XII grossly intact. Moves all 4 extremity spontaneously to command. Normal sensation. GCS: M6 V1E4 (GCS 11T) A/P Assessment and Plan NEURO/Psych: Depression disorder NOS Anxiety disorder NOS Chronic benzodiazepine use Patient is currently on propofol drip at 21 mg/kg/m/Dexmedetomidine at 0.5 mics grams per kilo gram per hour for sedation/vent synchrony Goal of RA SS -2 Sedation vacation daily Continue buspirone 30 mg twice a day anxiety On lorazepam 0.5 mg twice a day at home. Here on 0.25 mill grams every 8 hours when necessary anxiety Acetaminophen 650 mg by mouth every 6 hours when necessary fever/pain Respiratory: Acute hypercapnic hypoxic Respiratory failure VAP ACV ventilation Albuterol/Atrovent aerosols every 6 hours with albuterol aerosols every 2 hours when necessary breakthrough Currently on PSV trial. Ventilator bundle - Continue mechanical ventilation - Continue weaning when hemodynamically and neurologically stable No endotracheal cuff leak. Will give dexamethasone 4 mg IV every 6 hours times 4 dosages for postextubation airway obstruction prevention. CV: Coronary artery disease Dyslipidemia Hypertension High degree AV block - 8/3 Status post angioplasty and stents of the distal LAD and mid left anterior descending artery, and angioplasty and stenting of the proximal/ostial right coronary artery On carvedilol 6.25 mg by mouth twice a day for hypertension. On lisinopril 10 mg daily for hypertension. Hold clonidine 0.1 mg twice a day and hydralazine 10 mill grams 3 times a day Pacemaker is been removed 05/18 Home medications are losartan/hctz 300 mg/12.5 mg daily with additional hydrochlorothiazide 12.5 mg additional daily. Hypertension along with metoprolol 50 mg by mouth twice a day and clonidine 0.1 mg by mouth twice a day and Norvasc 5 mg twice a day and diltiazem 240 mg by mouth daily and hydralazine 10 mg 3 times a day - Aspirin 81 mg by mouth daily - Ticagrelor 90 mg by mouth twice a day for stent - Atorvastatin 80 mg by mouth daily for dyslipidemia. Holding fish oil/ cholecalciferol 1000/100 3 tablets twice a day Echocardiogram revealed EF 60-65%. Asymmetric septal hypertrophy. Trace MR. ID: VAP Oral thrush Currently cefepime/Levaquin per infectious disease. Vancomycin discontinued 05/23. On nystatin swish and spit every 6 hours -Secretions diminished -05/20 fiberoptic bronchoscopy with BAL no growth -Antibiotics per ID recommendation- Dr. Godinez -Legionella, pneumococcal, influenza A and B antigens- results negative -Repeat urine and blood cultures no growth Endo Diabetes mellitus - Insulin sliding scale with Novulog, low dose regimen. 4 units past 24 hours Holding metformin 750 mg twice a day/home medication FEN Hypernatremia Increase free water 200 every 8. Follow-up CBC in a.m. Renal" Chronic kidney disease stage 3 - Creatinine improved - Monitor I's and O - Monitor Electrolytes and creatinine level GI prophylaxis Pepcid DVT- Teds SCDs heparin subcutaneous Dispo: Discussed with daughter, and CREDIT CONTROL ADMINISTRATOR at bedside. Critical Care: 35 minutes critical Elise,David Gotti MD May 24, 2017 09:33
[2017-05-24] MEDS: RESP: ALBUTEROL 2.5 MG/IPRATROPIUM 0.5 MG NEB (SCH) NEB ×3 (10:24→21:20)
[2017-05-24] MEDS: FAMOTIDINE 20 MG/2 ML VIAL IV PUSH SCH ×2 (10:51→21:28)
[2017-05-24] MEDS: DEXAMETHASONE SOD PHOS 4 MG/ML VIAL IV SCH ×3 (10:51→22:31)
[2017-05-24] MEDS: hydrALAZINE HCL 20 MG/ML VIAL IV PUSH PRN ×2 (11:26→21:33)
[2017-05-24] MEDS: ARTIFICIAL TEARS OPTH SOLN 15 ML BTL EACH EYE SCH ×2 (13:06→22:31)
[2017-05-24] MEDS: NITROGLYCERIN 2% OINT 1 GM PACKET TOPICAL PRN (13:07)
[2017-05-24] MEDS: FREE WATER G-TUBE SCH ×2 (14:00→22:00)
--- NOTE | 2017-05-24 14:07 | PD.CARD.PN ---
Subjective Subjective Remarks Intubated, awake Objective Medications No CP, on CPAP, less secretions Vital Signs / I&O Vital Signs Date Time Temp Pulse Resp B/P Pulse Ox O2 Delivery O2 Flow Rate FiO2 05/24/17 12:00 74 05/24/17 12:00 98.7 74 28 144/66 96 05/24/17 12:00 40 05/24/17 11:49 95 40 05/24/17 10:00 65 05/24/17 08:00 100.0 70 26 148/65 92 05/24/17 08:00 70 05/24/17 08:00 40 05/24/17 07:52 40 05/24/17 07:52 95 40 05/24/17 07:50 40 05/24/17 06:00 58 05/24/17 05:18 18 05/24/17 04:45 95 40 05/24/17 04:00 62 05/24/17 04:00 100.3 62 20 156/70 95 05/24/17 04:00 50 05/24/17 02:00 58 05/24/17 00:48 92 40 05/24/17 00:00 60 05/24/17 00:00 99.1 60 24 142/63 93 05/24/17 00:00 50 05/23/17 22:00 55 05/23/17 20:21 97 40 05/23/17 20:00 99.3 65 20 114/53 94 05/23/17 20:00 50 05/23/17 20:00 65 05/23/17 18:00 53 05/23/17 17:00 51 20 140/66 93 05/23/17 16:30 50 05/23/17 16:01 99.9 55 24 156/67 93 05/23/17 16:00 45 05/23/17 16:00 96 40 05/23/17 16:00 53 05/23/17 15:00 64 32 164/70 94 I/O 05/23/17 05/23/17 05/23/17 05/24/17 05/24/17 05/24/17 06:59 14:59 22:59 06:59 14:59 22:59 Intake Total 516 ml 861 ml 670 ml 633 ml Output Total 200 ml 400 ml 300 ml 350 ml Balance 316 ml 461 ml 370 ml 283 ml IV Total 329 ml 542 ml 384 ml 368 ml Tube Feeding 187 ml 319 ml 286 ml 265 ml Output Urine Total 200 ml 400 ml 300 ml 350 ml # Bowel Movements 1 0 0 1 Physical Exam GENERAL: Intubated, awake SKIN: Warm and dry. HEAD: Normocephalic. EYES: No scleral icterus. No injection or drainage. NECK: Supple, trachea midline. No JVD or lymphadenopathy. CARDIOVASCULAR: Regular rate and rhythm without murmurs, gallops, or rubs. RESPIRATORY: Breath sounds equal bilaterally. No accessory muscle use. GASTROINTESTINAL: Abdomen soft, non-tender, nondistended. MUSCULOSKELETAL: No cyanosis, or edema. Groin stable Laboratory Laboratory Tests Test 05/24/17 05/24/17 05:16 05:55 Sodium Level 146 MEQ/L Potassium Level 5.0 MEQ/L Chloride Level 116 MEQ/L Carbon Dioxide Level 21.9 MEQ/L Anion Gap 8 MEQ/L Blood Urea Nitrogen 23 MG/DL Creatinine 1.08 MG/DL Estimat Glomerular Filtration 49 ML/MIN Rate Random Glucose 113 MG/DL Calcium Level 8.4 MG/DL Phosphorus Level 2.8 MG/DL Magnesium Level 2.3 MG/DL Blood Gas Puncture Site LT RADIAL Blood Gas Patient Temperature 98.6 Blood Gas HCO3 22 mmol/L Blood Gas Base Excess -2.1 mmol/L Blood Gas Oxygen Saturation 93 % Arterial Blood pH 7.43 Arterial Blood Partial 33 mmHg Pressure CO2 Arterial Blood Partial 85 mmHg Pressure O2 Arterial Blood Oxygen Content 14.8 Vol % Arterial Blood 1.4 % Carboxyhemoglobin Arterial Blood Methemoglobin 1.3 % Blood Gas Hemoglobin 11.2 G/DL Oxygen Delivery Device VENT Blood Gas Ventilator Setting SEE COMMENTS Blood Gas Inspired Oxygen 40 % Imaging Last Impressions Chest X-Ray 05/24/17 0600 Signed Impressions: Service Date/Time: May 03:17 - CONCLUSION: No significant change has occurred. Sterling Guevara MD Assessment and Plan Problem List: (1) Acute CHF (congestive heart failure) (2) NSTEMI (non-ST elevated myocardial infarction) (3) CAD (coronary artery disease) (4) High degree atrioventricular block (5) Respiratory failure (6) PNA (pneumonia) (7) Ischemic cardiomyopathy Assessment and Plan No new cardiac issues. Remains stable p MV PCI, no recurrent bradycardia. Renal fx stable, continue to monitor. Continue carvedilol and lisinopril, BP control. Continue therapy for pneumonia. Wean vent as tolerated, possibly extubation tomorrow. Problem Qualifiers (1) PNA (pneumonia): Qualified Code: J18.9 - Pneumonia of left lung due to infectious organism, unspecified part of lung Mg Daly MD May 24, 2017 14:07
[2017-05-24] MEDS ORDERED: PHARMACY ORDERED LAB ONE (14:45)
--- NOTE | 2017-05-24 15:37 | HHI.IDPN ---
Subjective Subjective Remarks Patient is a 81-year-old female, presented to the hospital complaining of cough , shortness of breath and chest tightness for one week. She was bringing up some whitish phlegm. She had worsening shortness of breath and presented to the hospital for further evaluation and treatment. She has had chills the night of admission. No nausea or vomiting or any urinary complaints. On presentation she ruled in for an [place]. She had high grade AV block, and underwent emergent cardiac catheterization. She had some interventions done, and she also had placement of a temporary pacemaker. He ended up getting intubated. She's been intubated since. She had the fever initially, and that has improved, however since yesterday she started having fevers again. She apparently was having a lot of secretions, and required bronchoscopy yesterday. She is febrile today. She is awake and responding. She is on the vent. Infectious disease consultation has been requested to evaluate the patient. Notes reviewed Temps occ low grade Doing CPAP trials Sputum culture with normal respiratory jose alejandro BP ok CXR stable Antibiotics Cefepime Levaquin Past Medical History HTN DM [place] CKD stage 3 Past Surgical History Heart stents Cholecystectomy Hysterectomy Allergies: Coded Allergies: Zocor (Verified Allergy, Severe, ARMS SWELL, 05/16/17) Objective . Vital Signs Date Time Temp Pulse Resp B/P Pulse Ox O2 Delivery O2 Flow Rate FiO2 05/24/17 15:00 40 05/24/17 14:00 79 05/24/17 12:00 74 05/24/17 12:00 98.7 74 28 144/66 96 05/24/17 12:00 40 05/24/17 11:49 95 40 05/24/17 10:00 65 05/24/17 08:00 100.0 70 26 148/65 92 05/24/17 08:00 70 05/24/17 08:00 40 05/24/17 07:52 40 05/24/17 07:52 95 40 05/24/17 07:50 40 05/24/17 06:00 58 05/24/17 05:18 18 05/24/17 04:45 95 40 05/24/17 04:00 62 05/24/17 04:00 100.3 62 20 156/70 95 05/24/17 04:00 50 05/24/17 02:00 58 05/24/17 00:48 92 40 05/24/17 00:00 60 05/24/17 00:00 99.1 60 24 142/63 93 05/24/17 00:00 50 05/23/17 22:00 55 05/23/17 20:21 97 40 05/23/17 20:00 99.3 65 20 114/53 94 05/23/17 20:00 50 05/23/17 20:00 65 05/23/17 18:00 53 05/23/17 17:00 51 20 140/66 93 05/23/17 16:30 50 05/23/17 16:01 99.9 55 24 156/67 93 05/23/17 16:00 45 05/23/17 16:00 96 40 05/23/17 16:00 53 05/23/17 05/23/17 05/24/17 15:00 23:00 07:00 Intake Total 861 ml 670 ml 633 ml Output Total 400 ml 300 ml 350 ml Balance 461 ml 370 ml 283 ml IV Total 542 ml 384 ml 368 ml Tube Feeding 319 ml 286 ml 265 ml Output Urine Total 400 ml 300 ml 350 ml # Bowel Movements 0 0 1 . Laboratory Tests Test 05/23/17 04:20 White Blood Count 7.8 TH/MM3 Red Blood Count 2.76 MIL/MM3 Hemoglobin 7.9 GM/DL Hematocrit 23.4 % Mean Corpuscular Volume 84.8 FL Mean Corpuscular Hemoglobin 28.5 PG Mean Corpuscular Hemoglobin 33.6 % Concent Red Cell Distribution Width 15.6 % Platelet Count 173 TH/MM3 Mean Platelet Volume 7.7 FL Neutrophils (%) (Auto) 81.8 % Lymphocytes (%) (Auto) 9.7 % Monocytes (%) (Auto) 5.2 % Eosinophils (%) (Auto) 2.9 % Basophils (%) (Auto) 0.4 % Neutrophils # (Auto) 6.4 TH/MM3 Lymphocytes # (Auto) 0.8 TH/MM3 Monocytes # (Auto) 0.4 TH/MM3 Eosinophils # (Auto) 0.2 TH/MM3 Basophils # (Auto) 0.0 TH/MM3 CBC Comment DIFF FINAL Differential Comment Laboratory Tests Test 05/23/17 05/23/17 05/24/17 04:20 11:17 05:16 Sodium Level 146 MEQ/L 146 MEQ/L Potassium Level 3.9 MEQ/L 5.0 MEQ/L Chloride Level 115 MEQ/L 116 MEQ/L Carbon Dioxide Level 23.8 MEQ/L 21.9 MEQ/L Anion Gap 7 MEQ/L 8 MEQ/L Blood Urea Nitrogen 22 MG/DL 23 MG/DL Creatinine 1.10 MG/DL 1.08 MG/DL Estimat Glomerular Filtration 48 ML/MIN 49 ML/MIN Rate Random Glucose 166 MG/DL 113 MG/DL Calcium Level 8.4 MG/DL 8.4 MG/DL Phosphorus Level 2.4 MG/DL 1.9 MG/DL 2.8 MG/DL Magnesium Level 2.5 MG/DL 2.3 MG/DL Microbiology Date/Time Procedure Status Source Growth 05/21/17 16:20 Urine Culture - Final Complete Urine Catheterized Urine NO GROWTH IN 48 HOURS. 05/21/17 19:30 Aerobic Blood Culture - Preliminary Resulted Blood Peripheral NO GROWTH IN 3 DAYS 05/21/17 19:30 Anaerobic Blood Culture - Preliminary Resulted Blood Peripheral NO GROWTH IN 3 DAYS 05/21/17 19:35 Aerobic Blood Culture - Preliminary Resulted Blood Peripheral NO GROWTH IN 3 DAYS 05/21/17 19:35 Anaerobic Blood Culture - Preliminary Resulted Blood Peripheral NO GROWTH IN 3 DAYS Imaging Last 72 hours Impressions Chest X-Ray 05/22/17 06 Signed Impressions: Service Date/Time: Monday, May 22, 2017 03:32 - CONCLUSION: No significant change has occurred. Sterling Guevara MD Chest X-Ray 05/21/17 06 Signed Impressions: Service Date/Time: Sunday, May 21, 2017 02:53 - CONCLUSION: Improved aeration of the left lower lobe. Sterling Guevara MD Chest X-Ray 05/20/17 06 Signed Impressions: Service Date/Time: Saturday, May 20, 2017 03:36 - CONCLUSION: 1. Patchy alveolar disease characteristic of edema or pneumonia. There has been no significant change when compared to the prior exam. Chano Bullock MD Chest X-Ray 05/20/17 0000 Signed Impressions: Service Date/Time: Saturday, May 20, 2017 15:35 - CONCLUSION: No significant change. Bilateral infiltrates persist. No pneumothorax or other acute complication seen post bronchoscopy. David Rodriguez MD Chest X-Ray 05/20/17 0000 Signed Impressions: Service Date/Time: Saturday, May 20, 2017 13:49 - CONCLUSION: 1. Patchy bilateral pulmonary infiltrates persist without significant change. David Rodriguez MD Physical Exam GENERAL: Looks comfortable on the vent SKIN: Warm and dry. No generalized rash, no ecchymoses and no evidence of embolic lesions. HEAD: Atraumatic. Normocephalic. No temporal wasting, or tenderness. EYES: Dewar conjunctiva. No petechia or hemorrhage. No scleral icterus. No injection or drainage. EARS, NOSE AND THROAT: Nose without bleeding or purulent nasal discharge. No sinus tenderness. Orally intubated. Mucous membranes pink and moist. NECK: Trachea midline. Supple and not tender, no meningeal signs CARDIOVASCULAR: Regular rate and rhythm. No murmurs, rubs or gallops heard RESPIRATORY: Has diffuse rhonchi ABDOMEN: Soft, non-tender, nondistended. Bowel sounds present and normoactive. No guarding. No rebound. No organomegaly. Stable ecchymoses on her R groin where she had her cardiac cath EXTREMITIES: No clubbing, cyanosis, or edema. No joint effusion, has good ROM. No calf tenderness. Well perfused and warm. NEUROLOGICAL: Non-focal PSYCHIATRIC: cooperative. LINE: No evidence of infection : Garcia in place, urine looks clear Assessment & Plan Remarks IMPRESSION Recurrent fever likely due to VAP - temp seem to be trending down Initial presentation with CAP, has been on vent since 05/17 [place], S/P intervention Respiratory failure RECOMMENDATION Follow C/S Continue cefepime and Levaquin for GNR coverage Follow temps Monitor progress Weaning per CCM Nani Godinez MD May 24, 2017 15:37
[2017-05-24] MEDS: PROPOFOL 1000 MG/100 ML IV SCH (19:04)
[2017-05-24] MEDS ORDERED: APIXABAN 5 MG TABLET PO SCH (21:00)
[2017-05-24] MEDS ORDERED: HEPARIN SODIUM - SQ 10,000 UNITS/ML VIAL SQ SCH (21:00)
[2017-05-24] MEDS: LISINOPRIL 10 MG TAB PO SCH (21:27)
[2017-05-24] MEDS: ATORVASTATIN 10 MG TAB PO SCH (21:32)
[2017-05-25] VITALS (40 sets, daily range): BP systolic 125–178; BP diastolic 60–82; PULSE 47–87; RESP 22–36; TEMP 98.1–100.2; O2SAT 90–99
[2017-05-25] MEDS: CEFEPIME INJ 2,000 MG in SODIUM CHLORIDE 0.9% INJ 100 ML IV SCH ×2 (00:03→11:39)
[2017-05-25] MEDS: INSULIN ASPART SUPPLEMENTAL SCALE SQ SCH ×4 (00:03→17:22)
[2017-05-25] MEDS: RESP: ALBUTEROL 2.5 MG/IPRATROPIUM 0.5 MG NEB (SCH) NEB ×4 (02:11→21:41)
[2017-05-25] MEDS: DEXMEDETOMIDINE INJ 200 MCG in SODIUM CHLORIDE 0.9% INJ 50 ML IV SCH ×5 (04:15→17:19)
[2017-05-25] MEDS: hydrALAZINE HCL 20 MG/ML VIAL IV PUSH PRN ×3 (04:16→12:09)
[2017-05-25] MEDS: DEXAMETHASONE SOD PHOS 4 MG/ML VIAL IV SCH (04:16)
--- NOTE | 2017-05-25 05:25 | RADRPT ---
EXAM DATE/TIME: 05/25/2017 04:24 [facility] COMPARISON: CHEST SINGLE AP, May 24, 2017, 3:17. INDICATIONS : Evaluate for respiratory failure. MEDICAL HISTORY : Myocardial infarction. Hypertension Diabetes mellitus type II. SURGICAL HISTORY : None. ENCOUNTER: Subsequent ACUITY: 1 week PAIN SCORE: Non-responsive. LOCATION: chest FINDINGS: Patchy infiltrate again seen both mid and lower lungs and accounting for differences in technique pro bably not significantly changed. Small, bilateral pleural effusions appear to be developing. No pneum othorax. Heart size stable, within normal limits. Endotracheal tube tip is about 5 cm above the josiah. There is a nasogastric tube coursing into the s tomach. CONCLUSION: Bilateral infiltrates persist. Small bilateral pleural effusions are probably developing. David Rodriguez MD on May 25, 2017 at 5:22 Board Certified Radiologist. This report was verified electronically.
[2017-05-25] MEDS: FREE WATER G-TUBE SCH ×3 (06:00→22:00)
[2017-05-25] MEDS: ARTIFICIAL TEARS OPTH SOLN 15 ML BTL EACH EYE SCH ×3 (06:05→22:00)
[2017-05-25] MEDS: CHLORHEXIDINE 0.12% (ORAL KIT) 15 ML CUP MT SCH ×2 (07:08→20:22)
[2017-05-25] MEDS: SODIUM CHLORIDE 0.9% FLUSH 10 ML FLUSH IV FLUSH SCH ×2 (07:08→20:22)
[2017-05-25 08:29] LABS: AUTOMATED NEUTROPHIL # 6.6 TH/MM3 (1.8-7.7); BASOPHIL % 0.3 % (0.0-2.0); HEMATOCRIT 25.1 % (35.0-46.0); LYMPH % 7.9 % (9.0-44.0); LYMPHOCYTE # 0.6 TH/MM3 (1.0-4.8); MEAN CELL VOLUME 84.9 FL (80.0-100.0); MEAN CORPUSCULAR HEMOGLOBIN 27.9 PG (27.0-34.0); MEAN CORPUSCULAR HGB CONC 32.9 % (32.0-36.0); MONO % 2.6 % (0.0-8.0); NEUT % 89.2 % (16.0-70.0); PLATELET COUNT 200 TH/MM3 (150-450); RED BLOOD COUNT 2.96 MIL/MM3 (4.00-5.30); RED CELL DISTRIBUTION WIDTH 15.7 % (11.6-17.2); WHITE BLOOD COUNT 7.5 TH/MM3 (4.0-11.0)
[2017-05-25 08:40] LABS: HEMO FLAGS AUTO DIFF
--- NOTE | 2017-05-25 08:40 | HHI.IDPN ---
Subjective Subjective Remarks Patient is a 81-year-old female, presented to the hospital complaining of cough , shortness of breath and chest tightness for one week. She was bringing up some whitish phlegm. She had worsening shortness of breath and presented to the hospital for further evaluation and treatment. She has had chills the night of admission. No nausea or vomiting or any urinary complaints. On presentation she ruled in for an PA. She had high grade AV block, and underwent emergent cardiac catheterization. She had some interventions done, and she also had placement of a temporary pacemaker. He ended up getting intubated. She's been intubated since. She had the fever initially, and that has improved, however since yesterday she started having fevers again. She apparently was having a lot of secretions, and required bronchoscopy yesterday. She is febrile today. She is awake and responding. She is on the vent. Infectious disease consultation has been requested to evaluate the patient. Notes reviewed Temps better this morning Sedated on the vent BP ok Sputum culture with normal respiratory jose alejandro CXR looks stable Antibiotics Cefepime Levaquin Past Medical History HTN DM PA CKD stage 3 Past Surgical History Heart stents Cholecystectomy Hysterectomy Allergies: Coded Allergies: Zocor (Verified Allergy, Severe, ARMS SWELL, 05/16/17) Objective . Vital Signs Date Time Temp Pulse Resp B/P Pulse Ox O2 Delivery O2 Flow Rate FiO2 05/25/17 07:33 93 50 05/25/17 07:00 71 31 91 05/25/17 06:30 70 29 156/66 91 05/25/17 06:00 80 05/25/17 06:00 80 36 153/70 91 05/25/17 05:30 62 29 169/71 92 05/25/17 05:00 63 28 158/71 92 05/25/17 04:31 70 29 152/70 91 05/25/17 04:30 72 32 92 05/25/17 04:00 99.2 65 27 178/75 93 05/25/17 04:00 65 29 178/75 93 05/25/17 04:00 65 05/25/17 04:00 65 29 178/75 93 05/25/17 04:00 40 05/25/17 03:55 92 45 05/25/17 03:30 67 29 177/73 92 05/25/17 03:00 68 29 169/73 93 8/11/17 02:30 63 27 167/71 90 05/25/17 02:01 87 36 139/75 99 05/25/17 02:00 69 05/25/17 02:00 69 36 98 05/25/17 01:30 67 29 170/72 93 05/25/17 01:24 91 45 05/25/17 01:00 68 28 167/72 92 05/25/17 00:30 68 26 163/72 93 05/25/17 00:00 67 25 152/69 95 05/25/17 00:00 98.1 67 23 152/69 95 05/25/17 00:00 67 25 152/69 95 05/25/17 00:00 40 05/25/17 00:00 67 05/24/17 23:30 47 24 144/63 91 05/24/17 23:00 55 27 140/62 91 05/24/17 22:44 93 45 05/24/17 22:30 51 24 140/66 91 05/24/17 22:01 69 28 122/60 93 05/24/17 22:00 69 05/24/17 21:30 64 30 91 05/24/17 21:30 178/77 05/24/17 21:00 62 25 178/77 94 05/24/17 20:30 72 26 95 05/24/17 20:24 94 45 05/24/17 20:00 64 05/24/17 20:00 40 05/24/17 20:00 64 23 152/93 93 05/24/17 20:00 98.0 64 22 152/93 93 05/24/17 18:00 65 05/24/17 17:01 93 40 05/24/17 16:00 60 05/24/17 16:00 100.5 60 25 142/65 93 05/24/17 16:00 40 05/24/17 15:00 40 05/24/17 14:00 79 05/24/17 12:00 74 05/24/17 12:00 98.7 74 28 144/66 96 05/24/17 12:00 40 05/24/17 11:49 95 40 05/24/17 10:00 65 05/24/17 05/24/17 05/25/17 14:59 22:59 06:59 Intake Total 518 ml 813 ml 797 ml Output Total 540 ml 500 ml 400 ml Balance -22 ml 313 ml 397 ml IV Total 200 ml 193 ml 248 ml Tube Feeding 318 ml 360 ml 319 ml Other 260 ml 230 ml Output Urine Total 540 ml 500 ml 400 ml Tube Feeding Residual Discard 0 ml # Bowel Movements 0 0 . Laboratory Tests Test 05/23/17 05/24/17 11:17 05:16 Phosphorus Level 1.9 MG/DL 2.8 MG/DL Sodium Level 146 MEQ/L Potassium Level 5.0 MEQ/L Chloride Level 116 MEQ/L Carbon Dioxide Level 21.9 MEQ/L Anion Gap 8 MEQ/L Blood Urea Nitrogen 23 MG/DL Creatinine 1.08 MG/DL Estimat Glomerular Filtration 49 ML/MIN Rate Random Glucose 113 MG/DL Calcium Level 8.4 MG/DL Magnesium Level 2.3 MG/DL Imaging Last 72 hours Impressions Chest X-Ray 05/22/17 0600 Signed Impressions: Service Date/Time: Monday, May 22, 2017 03:32 - CONCLUSION: No significant change has occurred. Sterling Guevara MD Chest X-Ray 05/21/17 06 Signed Impressions: Service Date/Time: Sunday, May 21, 2017 02:53 - CONCLUSION: Improved aeration of the left lower lobe. Sterling Guevara MD Chest X-Ray 05/20/17 06 Signed Impressions: Service Date/Time: Saturday, May 20, 2017 03:36 - CONCLUSION: 1. Patchy alveolar disease characteristic of edema or pneumonia. There has been no significant change when compared to the prior exam. Chano Bullock MD Chest X-Ray 05/20/17 0000 Signed Impressions: Service Date/Time: Saturday, May 20, 2017 15:35 - CONCLUSION: No significant change. Bilateral infiltrates persist. No pneumothorax or other acute complication seen post bronchoscopy. David Rodriguez MD Chest X-Ray 05/20/17 0000 Signed Impressions: Service Date/Time: Saturday, May 20, 2017 13:49 - CONCLUSION: 1. Patchy bilateral pulmonary infiltrates persist without significant change. David Rodriguez MD Physical Exam GENERAL: Looks comfortable on the vent SKIN: Warm and dry. No generalized rash, no ecchymoses and no evidence of embolic lesions. HEAD: Atraumatic. Normocephalic. No temporal wasting, or tenderness. EYES: [place] conjunctiva. No petechia or hemorrhage. No scleral icterus. No injection or drainage. EARS, NOSE AND THROAT: Nose without bleeding or purulent nasal discharge. No sinus tenderness. Orally intubated. Mucous membranes pink and moist. NECK: Trachea midline. Supple and not tender, no meningeal signs CARDIOVASCULAR: Regular rate and rhythm. No murmurs, rubs or gallops heard RESPIRATORY: has rhonchi on R, decreased BS on L ABDOMEN: Soft, non-tender, nondistended. Bowel sounds present and normoactive. No guarding. No rebound. No organomegaly. EXTREMITIES: No clubbing, cyanosis, or edema. No joint effusion, has good ROM. No calf tenderness. Well perfused and warm. NEUROLOGICAL: Non-focal PSYCHIATRIC: cooperative. LINE: No evidence of infection : Garcia in place, urine looks clear Assessment & Plan Remarks IMPRESSION Recurrent fever likely due to VAP - temp seem to be trending down Initial presentation with CAP, has been on vent since 05/17 PA, S/P intervention Respiratory failure RECOMMENDATION Continue cefepime and Levaquin - plan 7 days Follow temps Monitor progress If not weaning, CT chest, ?effusion and tap Weaning per CCM Dr Nathaniel Ferrara available if needed this weekend Nani Godinez MD May 25, 2017 08:40
[2017-05-25] MEDS: CARVEDILOL 6.25 MG TAB PO SCH ×2 (08:47→20:24)
[2017-05-25] MEDS: FAMOTIDINE 20 MG/2 ML VIAL IV PUSH SCH ×2 (08:47→20:25)
[2017-05-25] MEDS: hydrALAZINE HCL 25 MG TAB PO SCH ×3 (08:47→17:19)
[2017-05-25] MEDS: cloNIDine HCL 0.1 MG TAB PO SCH ×2 (08:47→17:19)
[2017-05-25] MEDS: HEPARIN SODIUM - SQ 10,000 UNITS/ML VIAL SQ SCH ×2 (08:47→20:24)
[2017-05-25] MEDS: TICAGRELOR 90 MG TAB PO SCH ×2 (08:47→20:24)
[2017-05-25] MEDS: busPIRone HCL 10 MG TAB PO SCH ×2 (08:47→20:24)
[2017-05-25] MEDS: NYSTATIN SUSP 500,000 U/5 ML CUP SWISH-SWAL SCH ×4 (08:48→20:24)
[2017-05-25] MEDS: LEVOFLOXACIN 750 MG PREMIX INJ 150 ML IV SCH (08:48)
[2017-05-25] MEDS: ASPIRIN EC 81 MG TABEC PO SCH (08:48)
[2017-05-25 08:55] LABS: ANION GAP 7 MEQ/L (5-15); AST (GOT) 65 U/L (15-37); BICARBONATE 22.9 MEQ/L (21.0-32.0); BLOOD UREA NITROGEN 31 MG/DL (7-18); CHLORIDE 111 MEQ/L (98-107); GLOMERULAR FILTRATION RATE 47 ML/MIN (>89); MAGNESIUM 2.4 MG/DL (1.5-2.5); POTASSIUM 4.5 MEQ/L (3.5-5.1); SODIUM (NA) 141 MEQ/L (136-145)
[2017-05-25 08:56] LABS: ALT (GPT) 72 U/L (10-53)
[2017-05-25 08:58] LABS: ALKALINE PHOSPHATASE 95 U/L (45-117); TOTAL BILIRUBIN ADULT 0.3 MG/DL (0.2-1.0)
[2017-05-25] MEDS: NITROGLYCERIN 2% OINT 1 GM PACKET TOPICAL PRN (09:01)
[2017-05-25 09:06] LABS: CREATINE KINASE 56 U/L (26-192)
[2017-05-25] MEDS ORDERED: BUMETANIDE INJ 1 MG/4 ML VIAL IV PUSH ONE (09:15)
[2017-05-25] MEDS ORDERED: ALBUMIN HUMAN 25% 25 GM/100 ML BAGP IV ONE (09:15)
--- NOTE | 2017-05-25 09:29 | HHI.CCPN ---
Subjective Remarks/Hospital Course 81-year-old very pleasant female with a history of HTN, atrial fibrillation, DM , ID, and CKD stage 3 presented to the ED with complaints of a cough, shortness of breath and chest tightness for the last week. She states she has had a productive cough with white sputum production with increasing shortness of breath. She was admitted to ICU and while in the unit she became significantly bradycardic due to complete heart block, also in respiratory distress and severe hypoxemia. She was emergently intubated and taken to cardiac catheterization lab for retrograde heart catheterization with left ventriculography and selective coronary angiography, angioplasty and stenting of the distal left anterior descending artery and mid left anterior descending artery, and angioplasty and stenting of the proximal/ostial right coronary artery. Also transvenous pacemaker placement. Subjective: 05/18: The patient underwent cardiac stenting yesterday, maintain some intubated, with transvenous pacemaker. Dopamine has been weaned off this afternoon. Plan for CPAP trials with planned extubation in the a.m.. Heparin has been discontinued this afternoon with plans for removal of venous sheath. The patient remains hemodynamically stable. 05/19: Femoral sheath with transvenous pacemaker removed last evening. Hemodynamically stable. Carvedilol and lisinopril initiated this a.m.. Patient sedation change to Precedex in anticipation for possible extubation. The patient has tolerated CPAP trials greater than 12 hours, however failed SBT this evening. Patient's hemoglobin was noted to be 7.7 this a.m. patient received 1 unit of packed red blood cells CBC post transfusion pending. 05/20: Afebrile. Overnight the patient was noted to have thick secretions, and was lavaged 4. The patient had increasing requirements for sedation in oxygenation, CPAP trials were discontinued at 10 PM secondary to thick copious secretions. Plan for fiberoptic bronchoscopy with BAL today. Hemoglobin stable , patient remains hemodynamically stable off all pressors. 05/21: Patient febrile, copious thick secretions noted. ID following , expansion of antibiotic coverage. Initiation of tube feeds. Patient remains hemodynamically stable. 05/22: Tmax 99.9. No acute issues overnight the patient continues on Precedex and propofol infusions. She remains alert GCS 11 T communicating by writing, and responsive to yes and no questions. Patient continues to have bilateral lung consolidations, antibiotics expanded per ID. Cultures continue to be pending. Patient tolerating tube feeds will advance as tolerated. 05/23:TMax 100.9. Cultures are pending. C. difficile antigen ordered .The patient is awake and responsive on Precedex and propofol infusions. The patient tolerated CPAP trials of 8 hours yesterday. Chest x-ray pending. Tube feedings increased. Hemodynamically stable. 05/24: Tolerated PSV trial strep 7 hours yesterday. Currently afebrile. MAXIMUM TEMPERATURE 100.3. Tolerating tube feeds. Positive BM. Subjective 05/25/17: Episodes of hypoxia overnight. FiO2 50%. Chest x-ray shows bilateral pulmonary basilar infiltrates/edema. I will add 2 mg IV Bumex 1 now and 1 mg every 12. SBT as tolerated Objective Vital Signs Date Time Temp Pulse Resp B/P Pulse Ox O2 Delivery O2 Flow Rate FiO2 05/25/17 07:33 93 50 05/25/17 07:00 71 31 05/25/17 06:30 156/66 05/25/17 04:00 99.2 Intake and Output 05/24/17 05/24/17 05/24/17 07:59 15:59 23:59 Intake Total 633 ml 518 ml 813 ml Output Total 350 ml 540 ml 500 ml Balance 283 ml -22 ml 313 ml Result Diagram: 05/25/17 0559 05/25/17 0559 Imaging Last Impressions Chest X-Ray 05/24/17 0600 Signed Impressions: Service Date/Time: May 03:17 - CONCLUSION: No significant change has occurred. Sterling Guevara MD Objective Remarks GENERAL: Well-nourished, well-developed patient, awake, following commands on propofol and dexmedetomidine drips SKIN: Warm and dry. Well perfused HEAD: Normocephalic. EYES: Pupils are equally round and reactive to light and accommodation. No scleral icterus. No injection or drainage. NECK: Supple, trachea midline. No JVD or lymphadenopathy. CARDIOVASCULAR: RRR. S1, S2. No S4. Without murmur RESPIRATORY: Few coarse crackles appreciated throughout all lung boyer. Symmetrical excursion. No wheezing. GASTROINTESTINAL: Abdomen soft, protuberant ,non-tender, hypoactive bowel sounds. Thrush noted on lateral distal tongue MUSCULOSKELETAL: Trace nonpitting lower extremity edema bilaterally. BACK: Nontender without obvious deformity. NEURO EXAM: Cranial nerves II through XII grossly intact. Moves all 4 extremity spontaneously to command. No focal deficits A/P Assessment and Plan NEURO/Psych: Depression disorder NOS Anxiety disorder NOS Chronic benzodiazepine use Patient is currently on propofol drip at 21 mg/kg/m/Dexmedetomidine at 0.5 mics grams per kilo gram DC Propofol, increase Precedex. Add Ativan 0.5 mg po q12 (Home med) DC Xanax Goal of RA SS -2. Sedation vacation daily Continue buspirone 30 mg twice a day anxiety Acetaminophen 650 mg by mouth every 6 hours when necessary fever/pain Respiratory: Acute hypercapnic hypoxic Respiratory failure HCAP ACV ventilation Albuterol/Atrovent aerosols every 6 hours with albuterol aerosols every 2 hours when necessary breakthrough Daily SBT, Ventilator bundle - Continue mechanical ventilation - Continue weaning when hemodynamically and neurologically stable No endotracheal cuff leak, but patient has 8.0 ETT. Continue dexamethasone 4 mg IV every 6 hours times x 4 dosages CV: Coronary artery disease Dyslipidemia Hypertension High degree AV block - 05/17 Status post angioplasty and stents of the distal LAD and mid LAD, and angioplasty and stenting of the proximal/ostial RCA On carvedilol 6.25 mg by mouth twice a day for hypertension. On lisinopril 10 mg daily for hypertension. -Resume and increase clonidine 0.1 mg q8 and continue hydralazine 10 mill grams 3 times a day Temporary Pacemaker is been removed 05/18 Home medications are losartan/hctz 300 mg/12.5 mg daily with additional hydrochlorothiazide 12.5 mg additional daily. Hypertension along with metoprolol 50 mg by mouth twice a day and clonidine 0.1 mg by mouth twice a day and Norvasc 5 mg twice a day and diltiazem 240 mg by mouth daily and hydralazine 10 mg 3 times a day - Aspirin 81 mg by mouth daily - Ticagrelor 90 mg by mouth twice a day for stent - Atorvastatin 80 mg by mouth daily for dyslipidemia. Holding fish oil/ cholecalciferol 1000/100 3 tablets twice a day Echocardiogram revealed EF 60-65%. Asymmetric septal hypertrophy. Trace MR. ID: Possible HCAP Oral thrush Bilateral infiltrate on chest x-ray most likely from pulmonary edema -these infiltrates present on CXR immediately after intubation, so VAP is unlikely. ALL cultures negative Currently cefepime/Levaquin per infectious disease. Vancomycin discontinued 05/23. On nystatin swish and spit every 6 hours -Secretions diminished -05/20 fiberoptic bronchoscopy with BAL no growth -Antibiotics per ID recommendation- Dr. Godinez -Legionella, pneumococcal, influenza A and B antigens- results negative -Repeat urine and blood cultures no growth Endo Diabetes mellitus - Insulin sliding scale with Novulog, low dose regimen. Holding metformin 750 mg twice a day/home medication FEN Hypernatremia Free water 200 every 8. Follow-up CBC in a.m. Renal Chronic kidney disease stage 3 - Creatinine improved - Monitor I's and O - Monitor Electrolytes and creatinine level GI prophylaxis Pepcid DVT- Teds SCDs heparin subcutaneous Dispo: Discussed with daughter, and PRINTER FLOOR COVERING ASSISTANT at bedside. Critical Care: 35 minutes Rudolph Rosenberg MD May 25, 2017 09:29
[2017-05-25] MEDS: LORazepam 0.5 MG TAB PO SCH ×2 (09:39→20:23)
[2017-05-25 10:02] LABS: BANDS 9 % (0-6); METAMYELOCYTES 1 % (0-1); MYELOCYTES 1 % (0-0); NEUTROPHIL # MANUAL DIFF 6.9 TH/MM3 (1.8-7.7); PLATELET ESTIMATE SMEAR NORMAL (NORMAL); PLATELET MORPHOLOGY NORMAL (NORMAL); POLYS (SEG NEUTROPHILS) 81 % (16-70); SCAN/DIFF FINAL DIFF MANUAL; WBC DIFF SAMPLE 100
[2017-05-25 10:04] LABS: OVALOCYTES 1+ (NORMAL)
[2017-05-25 10:06] LABS: HELMET CELLS OCC (NORMAL)
--- NOTE | 2017-05-25 15:30 | PD.CARD.PN ---
Subjective Subjective Remarks Intubated, sedated, not ready for extubation Objective Medications Current Medications Medications (Trade) Dose Ordered Sig/Renaldo Route Start Time Stop Time Status Last Admin (NS Flush) 2 ml UNSCH PRN IV FLUSH 05/17/17 00:30 (NS Flush) 2 ml BID IV FLUSH 05/17/17 09:00 05/25/17 07:08 (Narcan Inj) 0.4 mg UNSCH PRN IV 05/17/17 00:30 Miscellaneous Information Patient in critical care unit? Ass... Q361D .XX 05/17/17 02:45 (Norvasc) 5 mg BID PO 05/17/17 09:00 Hold 05/17/17 07:46 (Buspar) 30 mg BID PO 05/17/17 09:00 05/25/17 08:47 (Cardizem Cd) 240 mg DAILY PO 05/17/17 09:00 Hold 05/17/17 07:48 (Glucophage) 750 mg BIDPC PO 05/17/17 09:00 Hold 05/17/17 16:32 (Cozaar) 100 mg DAILY PO 05/17/17 09:00 Hold 05/17/17 07:47 (Hydrodiuril) 12.5 mg DAILY PO 05/17/17 09:00 Hold 05/17/17 07:48 Miscellaneous 1 ea 1 ea UNSCH PRN OTHER 05/17/17 05:30 (Levaquin 750 Mg Premix Inj) 150 ml @ 100 mls/hr Q48H IV 05/19/17 08:00 05/26/17 12:00 05/25/17 08:48 (Nitrostat Sl) 0.4 mg Q5M PRN SL 05/17/17 09:15 05/17/17 09:28 (Tessalon) 100 mg TID PRN PO 05/17/17 09:15 05/17/17 16:43 (Lipitor) 80 mg HS PO 05/17/17 21:00 05/24/17 21:32 (Peridex 0.12% Liq) 15 ml BID@08,20 MT 05/18/17 20:00 05/25/17 07:08 (Prinivil) 10 mg Q24H PO 05/18/17 19:15 Hold 05/24/17 21:27 Carvedilol 6.25 mg 6.25 mg BID PO 05/18/17 19:15 05/25/17 08:47 Cefepime HCl 2000 mg/Sodium Chloride 100 ml @ 200 mls/hr Q12H IV 05/19/17 00:00 05/26/17 12:00 05/25/17 11:39 Dexmedetomidine HCl 200 mcg/ Sodium Chloride 52 ml @ 0 mls/hr TITRATE IV 05/19/17 07:45 05/25/17 09:39 (Diprivan 1000 Mg/100ml Inj) 100 ml @ 0 mls/hr TITRATE IV 05/20/17 11:30 05/24/17 19:04 (Tylenol) 650 mg Q6H PRN PO 05/20/17 22:00 05/24/17 04:18 (D50w (Vial) Inj) 50 ml UNSCH PRN IV 05/22/17 13:15 (Glucagon Inj) 1 mg UNSCH PRN OTHER 05/22/17 13:15 Nystatin 5 ml 5 ml QID SWISH-SWAL 05/22/17 21:00 05/25/17 12:09 Potassium Chloride 100 ml @ 50 mls/hr Q2H PRN IV 05/23/17 07:30 (KCl 20 Meq Premix Inj) 100 ml @ 50 mls/hr Q2H PRN IV 05/23/17 07:30 Potassium Bicarb/ Potassium Chloride 50 meq 50 meq UNSCH PRN PO 05/23/17 07:30 Potassium Chloride 100 ml @ 25 mls/hr UNSCH PRN IV 05/23/17 07:30 Potassium Chloride 100 ml @ 50 mls/hr Q2H PRN IV 05/23/17 07:30 (Magnesium Sulfate Inj/NS Inj) 100 ml @ 50 mls/hr UNSCH PRN IV 05/23/17 07:30 Magnesium Oxide 800 mg 800 mg UNSCH PRN PO 05/23/17 07:30 (Magnesium Sulfate Inj/NS Inj) 100 ml @ 50 mls/hr UNSCH PRN IV 05/23/17 07:30 Potassium Phosphate 2000 mg 2,000 mg Q4H PRN PO 05/23/17 07:30 (Sodium Phosphate Inj/NS 250 ml Inj) 250 ml @ 42 mls/hr UNSCH PRN IV 05/23/17 07:30 05/23/17 14:50 Potassium Phosphate 2000 mg 2,000 mg UNSCH PRN PO/TUBE 05/23/17 07:30 (Potassium Phosphate Inj/NS 250 ml Inj) 260 ml @ 42 mls/hr UNSCH PRN IV 05/23/17 07:30 (Tears Naturale Opth Soln) 1 drop Q8HR EACH EYE 05/24/17 14:00 05/25/17 13:28 (NovoLOG SUPPLEMENTAL SCALE) 1 Q6HR SQ 05/24/17 12:00 05/25/17 11:47 (Pepcid Inj) 10 mg Q12HR IV PUSH 05/24/17 09:30 05/25/17 08:47 (Free Water) VOLUME: 200 ML Q8HR G-TUBE 05/24/17 14:00 05/25/17 13:28 (Apresoline Inj) 10 mg Q1HR PRN IV PUSH 05/24/17 11:30 05/25/17 12:09 (Nitroglycerin 2% Oint) 2 inch Q6HR PRN TOPICAL 05/24/17 11:30 05/25/17 09:01 (Apresoline) 25 mg TID PO 05/24/17 13:00 05/25/17 12:09 (Heparin Inj) 5,000 units Q12HR SQ 05/24/17 21:00 05/25/17 08:47 (Brilinta) 90 mg BID PO 05/24/17 21:00 05/25/17 08:47 (Ecotrin Ec) 81 mg DAILY PO 05/25/17 09:00 05/25/17 08:48 (Bumex Inj) 1 mg BID@,18 IV PUSH 05/25/17 18:00 (Ativan) 0.5 mg BID PO 05/25/17 09:30 05/25/17 09:39 (Catapres) 0.1 mg Q8H PO 05/25/17 17:00 Vital Signs / I&O Vital Signs Date Time Temp Pulse Resp B/P Pulse Ox O2 Delivery O2 Flow Rate FiO2 05/25/17 14:40 45 05/25/17 14:00 64 05/25/17 12:00 45 05/25/17 12:00 74 05/25/17 12:00 98.6 74 31 144/82 99 05/25/17 11:58 99 45 05/25/17 11:05 45 05/25/17 10:00 70 05/25/17 09:05 45 05/25/17 08:00 59 05/25/17 08:00 98.9 59 28 157/70 91 05/25/17 08:00 40 05/25/17 07:33 93 50 05/25/17 07:00 71 31 91 05/25/17 06:30 70 29 156/66 91 05/25/17 06:00 80 05/25/17 06:00 80 36 153/70 91 05/25/17 05:30 62 29 169/71 92 05/25/17 05:00 63 28 158/71 92 05/25/17 04:31 70 29 152/70 91 05/25/17 04:30 72 32 92 05/25/17 04:00 99.2 65 27 178/75 93 05/25/17 04:00 65 29 178/75 93 05/25/17 04:00 65 05/25/17 04:00 65 29 178/75 93 05/25/17 04:00 40 05/25/17 03:55 92 45 05/25/17 03:30 67 29 177/73 92 05/25/17 03:00 68 29 169/73 93 05/25/17 02:30 63 27 167/71 90 05/25/17 02:01 87 36 139/75 99 05/25/17 02:00 69 05/25/17 02:00 69 36 98 05/25/17 01:30 67 29 170/72 93 05/25/17 01:24 91 45 05/25/17 01:00 68 28 167/72 92 05/25/17 00:30 68 26 163/72 93 05/25/17 00:00 67 25 152/69 95 05/25/17 00:00 98.1 67 23 152/69 95 05/25/17 00:00 67 25 152/69 95 05/25/17 00:00 40 05/25/17 00:00 67 05/24/17 23:30 47 24 144/63 91 05/24/17 23:00 55 27 140/62 91 05/24/17 22:44 93 45 05/24/17 22:30 51 24 140/66 91 05/24/17 22:01 69 28 122/60 93 05/24/17 22:00 69 05/24/17 21:30 64 30 91 05/24/17 21:30 178/77 05/24/17 21:00 62 25 178/77 94 05/24/17 20:30 72 26 95 05/24/17 20:24 94 45 05/24/17 20:00 64 05/24/17 20:00 40 05/24/17 20:00 64 23 152/93 93 05/24/17 20:00 98.0 64 22 152/93 93 05/24/17 18:00 65 05/24/17 17:01 93 40 05/24/17 16:00 60 05/24/17 16:00 100.5 60 25 142/65 93 05/24/17 16:00 40 I/O 05/24/17 05/24/17 05/24/17 05/25/17 05/25/17 05/25/17 06:59 14:59 22:59 06:59 14:59 22:59 Intake Total 633 ml 518 ml 813 ml 797 ml Output Total 350 ml 540 ml 500 ml 400 ml Balance 283 ml -22 ml 313 ml 397 ml IV Total 368 ml 200 ml 193 ml 248 ml Tube Feeding 265 ml 318 ml 360 ml 319 ml Other 260 ml 230 ml Output Urine Total 350 ml 540 ml 500 ml 400 ml Tube Feeding Residual Discard 0 ml # Bowel Movements 1 0 0 Physical Exam GENERAL: Intubated, sedated SKIN: Warm and dry. HEAD: Normocephalic. EYES: No scleral icterus. No injection or drainage. NECK: Supple, trachea midline. No JVD or lymphadenopathy. CARDIOVASCULAR: Regular rate and rhythm without murmurs, gallops, or rubs. RESPIRATORY: Breath sounds equal bilaterally. No accessory muscle use. GASTROINTESTINAL: Abdomen soft, non-tender, nondistended. MUSCULOSKELETAL: No cyanosis, or edema. Groin stable Laboratory Laboratory Tests Test 05/25/17 05:59 White Blood Count 7.5 TH/MM3 Red Blood Count 2.96 MIL/MM3 Hemoglobin 8.3 GM/DL Hematocrit 25.1 % Mean Corpuscular Volume 84.9 FL Mean Corpuscular Hemoglobin 27.9 PG Mean Corpuscular Hemoglobin 32.9 % Concent Red Cell Distribution Width 15.7 % Platelet Count 200 TH/MM3 Mean Platelet Volume 7.2 FL Neutrophils (%) (Auto) 89.2 % Lymphocytes (%) (Auto) 7.9 % Monocytes (%) (Auto) 2.6 % Eosinophils (%) (Auto) 0.0 % Basophils (%) (Auto) 0.3 % Neutrophils # (Auto) 6.6 TH/MM3 Lymphocytes # (Auto) 0.6 TH/MM3 Monocytes # (Auto) 0.2 TH/MM3 Eosinophils # (Auto) 0.0 TH/MM3 Basophils # (Auto) 0.0 TH/MM3 CBC Comment AUTO DIFF Differential Total Cells 100 Counted Neutrophils % (Manual) 81 % Band Neutrophils % 9 % Lymphocytes % 2 % Monocytes % 6 % Neutrophils # (Manual) 6.9 TH/MM3 Metamyelocytes 1 % Myelocytes 1 % Differential Comment FINAL DIFF MANUAL Platelet Estimate NORMAL Platelet Morphology Comment NORMAL Ovalocytes 1+ Helmet Cells OCC Keratocytes Sodium Level 141 MEQ/L Potassium Level 4.5 MEQ/L Chloride Level 111 MEQ/L Carbon Dioxide Level 22.9 MEQ/L Anion Gap 7 MEQ/L Blood Urea Nitrogen 31 MG/DL Creatinine 1.11 MG/DL Estimat Glomerular Filtration 47 ML/MIN Rate Random Glucose 193 MG/DL Calcium Level 8.3 MG/DL Phosphorus Level 1.8 MG/DL Magnesium Level 2.4 MG/DL Total Bilirubin 0.3 MG/DL Aspartate Amino Transf 65 U/L (AST/SGOT) Alanine Aminotransferase 72 U/L (ALT/SGPT) Alkaline Phosphatase 95 U/L Total Creatine Kinase 56 U/L Total Protein 6.7 GM/DL Albumin 2.0 GM/DL Imaging Last Impressions Chest X-Ray 05/25/17 0600 Signed Impressions: Service Date/Time: Thursday, May 25, 2017 04:24 - CONCLUSION: Bilateral infiltrates persist. Small bilateral pleural effusions are probably developing. David Rodriguez MD Assessment and Plan Problem List: (1) Acute CHF (congestive heart failure) (2) NSTEMI (non-ST elevated myocardial infarction) (3) CAD (coronary artery disease) (4) High degree atrioventricular block (5) Respiratory failure (6) PNA (pneumonia) (7) Ischemic cardiomyopathy Assessment and Plan No new cardiac issues. Remains stable p MV PCI, no recurrent bradycardia. Continue Brilinta and baby ASA to prevent stent thrombosis. Renal fx stable, continue to monitor. Continue carvedilol and lisinopril, BP control. Continue therapy for pneumonia. Wean vent as tolerated, slow progress so far. D/w pt's son. Problem Qualifiers (1) PNA (pneumonia): Qualified Code: J18.9 - Pneumonia of left lung due to infectious organism, unspecified part of lung Mg Daly MD May 25, 2017 15:30
[2017-05-25] MEDS: BUMETANIDE INJ 1 MG/4 ML VIAL IV PUSH SCH (17:19)
[2017-05-25] MEDS: PROPOFOL 1000 MG/100 ML IV SCH (17:20)
[2017-05-25] MEDS: ATORVASTATIN 10 MG TAB PO SCH (20:23)
[2017-05-26] VITALS (50 sets, daily range): BP systolic 127–193; BP diastolic 59–78; PULSE 45–80; RESP 20–41; TEMP 97.6–99.7; O2SAT 88–100
[2017-05-26] MEDS: CEFEPIME INJ 2,000 MG in SODIUM CHLORIDE 0.9% INJ 100 ML IV SCH ×2 (00:28→11:03)
[2017-05-26] MEDS: cloNIDine HCL 0.1 MG TAB PO SCH ×3 (00:29→17:44)
[2017-05-26] MEDS: INSULIN ASPART SUPPLEMENTAL SCALE SQ SCH ×4 (00:32→17:45)
[2017-05-26] MEDS: DEXMEDETOMIDINE INJ 200 MCG in SODIUM CHLORIDE 0.9% INJ 50 ML IV SCH ×5 (02:05→21:29)
[2017-05-26] MEDS: RESP: ALBUTEROL 2.5 MG/IPRATROPIUM 0.5 MG NEB (SCH) NEB ×4 (04:14→19:38)
--- NOTE | 2017-05-26 04:59 | RADRPT ---
EXAM DATE/TIME: 05/26/2017 03:30 [facility] COMPARISON: CHEST SINGLE AP, May 25, 2017, 4:24. INDICATIONS : Shortness of breath, possible pulmonary disease. MEDICAL HISTORY : Myocardial infarction. Hypertension Diabetes mellitus type II. SURGICAL HISTORY : None. ENCOUNTER: Subsequent ACUITY: 1 week PAIN SCORE: Non-responsive. LOCATION: Bilateral chest FINDINGS: A single view of the chest demonstrates bilateral patchy consolidation, unchanged. Heart normal in si ze. Endotracheal tube and nasogastric tube are unchanged. Osseous structures are intact. CONCLUSION: Stable bilateral patchy consolidation. Shabbir Benjamin MD on May 26, 2017 at 4:57 Board Certified Radiologist. This report was verified electronically.
[2017-05-26] MEDS: ARTIFICIAL TEARS OPTH SOLN 15 ML BTL EACH EYE SCH ×3 (06:00→22:00)
[2017-05-26] MEDS: FREE WATER G-TUBE SCH ×3 (06:00→20:57)
[2017-05-26 06:18] LABS: AUTOMATED NEUTROPHIL # 7.7 TH/MM3 (1.8-7.7); BASOPHIL % 0.4 % (0.0-2.0); EOSINOPHIL # 0.2 TH/MM3 (0-0.4); EOSINOPHIL % 1.7 % (0.0-4.0); HEMATOCRIT 22.8 % (35.0-46.0); LYMPH % 15.2 % (9.0-44.0); LYMPHOCYTE # 1.5 TH/MM3 (1.0-4.8); MEAN CELL VOLUME 84.5 FL (80.0-100.0); MEAN CORPUSCULAR HEMOGLOBIN 29.1 PG (27.0-34.0); MEAN CORPUSCULAR HGB CONC 34.5 % (32.0-36.0); MONO % 5.4 % (0.0-8.0); NEUT % 77.3 % (16.0-70.0); PLATELET COUNT 217 TH/MM3 (150-450); RED BLOOD COUNT 2.69 MIL/MM3 (4.00-5.30); RED CELL DISTRIBUTION WIDTH 15.5 % (11.6-17.2)
[2017-05-26 06:26] LABS: HEMO FLAGS AUTO DIFF
[2017-05-26 06:56] LABS: ALKALINE PHOSPHATASE 76 U/L (45-117); ALT (GPT) 59 U/L (10-53); ANION GAP 11 MEQ/L (5-15); AST (GOT) 39 U/L (15-37); BICARBONATE 23.9 MEQ/L (21.0-32.0); BLOOD UREA NITROGEN 42 MG/DL (7-18); CHLORIDE 107 MEQ/L (98-107); GLOMERULAR FILTRATION RATE 38 ML/MIN (>89); MAGNESIUM 2.2 MG/DL (1.5-2.5); POTASSIUM 3.8 MEQ/L (3.5-5.1); SODIUM (NA) 142 MEQ/L (136-145); TOTAL BILIRUBIN ADULT 0.4 MG/DL (0.2-1.0)
[2017-05-26] MEDS: HEPARIN SODIUM - SQ 10,000 UNITS/ML VIAL SQ SCH ×2 (08:43→20:56)
[2017-05-26] MEDS: PROPOFOL 1000 MG/100 ML IV SCH (08:43)
[2017-05-26] MEDS: CARVEDILOL 6.25 MG TAB PO SCH ×2 (08:44→20:55)
[2017-05-26] MEDS: LORazepam 0.5 MG TAB PO SCH ×2 (08:44→20:54)
[2017-05-26] MEDS: TICAGRELOR 90 MG TAB PO SCH ×2 (08:44→20:54)
[2017-05-26] MEDS: hydrALAZINE HCL 25 MG TAB PO SCH ×3 (08:44→17:44)
[2017-05-26] MEDS: busPIRone HCL 10 MG TAB PO SCH ×2 (08:44→20:55)
[2017-05-26] MEDS: ASPIRIN EC 81 MG TABEC PO SCH (08:44)
[2017-05-26] MEDS: NYSTATIN SUSP 500,000 U/5 ML CUP SWISH-SWAL SCH ×4 (08:45→20:56)
[2017-05-26] MEDS: FAMOTIDINE 20 MG/2 ML VIAL IV PUSH SCH ×2 (08:45→20:54)
[2017-05-26] MEDS: CHLORHEXIDINE 0.12% (ORAL KIT) 15 ML CUP MT SCH ×2 (08:46→20:53)
[2017-05-26] MEDS: SODIUM CHLORIDE 0.9% FLUSH 10 ML FLUSH IV FLUSH SCH ×2 (08:46→20:53)
[2017-05-26 09:30] LABS: BANDS 7 % (0-6); EOSINOPHILS 1 % (0-4); METAMYELOCYTES 1 % (0-1); MYELOCYTES 1 % (0-0); NEUTROPHIL # MANUAL DIFF 8.4 TH/MM3 (1.8-7.7); POLYS (SEG NEUTROPHILS) 75 % (16-70); WBC DIFF SAMPLE 100
[2017-05-26 09:31] LABS: OVALOCYTES 1+ (NORMAL); PLATELET ESTIMATE SMEAR NORMAL (NORMAL); PLATELET MORPHOLOGY NORMAL (NORMAL); SCAN/DIFF FINAL DIFF MANUAL; SPHEROCYTES 1+ (NORMAL)
--- NOTE | 2017-05-26 09:47 | RADRPT ---
EXAM DATE/TIME: 05/26/2017 09:31 [facility] COMPARISON: CHEST SINGLE AP, May 26, 2017, 3:30. INDICATIONS : Respritory failure. RADIATION DOSE: 9.59 CTDIvol (mGy) MEDICAL HISTORY : Cardiovascular disease. Hypertension. SURGICAL HISTORY : Hysterectomy. Cholecystectomy. ENCOUNTER: Initial ACUITY: 1 day PAIN SCALE: Non-responsive LOCATION: chest TECHNIQUE: Volumetric scanning of the chest was performed. Using automated exposure control and adjustment of t he mA and/or kV according to patient size, radiation dose was kept as low as reasonably achievable to obtain optimal diagnostic quality images. DICOM format image data is available electronically for r eview and comparison. Follow-up recommendations for detected pulmonary nodules are based at a minimum on nodule size and pa tient risk factors according to Fleischner Society Guidelines. FINDINGS: LUNGS: Multiple patchy areas of consolidation are noted in both lungs greatest in the perihilar regions and lung bases with air bronchograms. PLEURAE: Small right pleural effusion and minimal left effusion. MEDIASTINUM: There are multiple prominent pretracheal and periaortic lymph nodes. These measure up to approximatel y 1.8 x 1.2 cm in diameter. There is questionable perihilar adenopathy on this noncontrast exam. Ther e is no pericardial effusion. The heart size is mildly prominent. There are coronary artery calcifica tions. An endotracheal tube is in place several centimeters above the josiah. A nasogastric tube is s een coursing through the esophagus and into the stomach. AXILLAE: Within normal limits. No lymphadenopathy. MUSCULOSKELETAL: Within normal limits for patient age. MISCELLANEOUS: The visualized upper abdominal organs demonstrate no acute abnormality. CONCLUSION: 1. Multiple patchy areas of consolidation of both lungs which could indicate pulmonary edema. 2. Small bilateral pleural effusions right greater than left. 3. Mediastinal adenopathy and questionable mild hilar adenopathy. 4. Mild cardiomegaly. Bandar Pruitt MD on May 26, 2017 at 9:41 Board Certified Radiologist. This report was verified electronically.
--- NOTE | 2017-05-26 10:04 | HHI.CCPN ---
Subjective Remarks/Hospital Course 81-year-old very pleasant female with a history of HTN, atrial fibrillation, DM , IA, and CKD stage 3 presented to the ED with complaints of a cough, shortness of breath and chest tightness for the last week. She states she has had a productive cough with white sputum production with increasing shortness of breath. She was admitted to ICU and while in the unit she became significantly bradycardic due to complete heart block, also in respiratory distress and severe hypoxemia. She was emergently intubated and taken to cardiac catheterization lab for retrograde heart catheterization with left ventriculography and selective coronary angiography, angioplasty and stenting of the distal left anterior descending artery and mid left anterior descending artery, and angioplasty and stenting of the proximal/ostial right coronary artery. Also transvenous pacemaker placement. Subjective: 05/18: The patient underwent cardiac stenting yesterday, maintain some intubated, with transvenous pacemaker. Dopamine has been weaned off this afternoon. Plan for CPAP trials with planned extubation in the a.m.. Heparin has been discontinued this afternoon with plans for removal of venous sheath. The patient remains hemodynamically stable. 05/19: Femoral sheath with transvenous pacemaker removed last evening. Hemodynamically stable. Carvedilol and lisinopril initiated this a.m.. Patient sedation change to Precedex in anticipation for possible extubation. The patient has tolerated CPAP trials greater than 12 hours, however failed SBT this evening. Patient's hemoglobin was noted to be 7.7 this a.m. patient received 1 unit of packed red blood cells CBC post transfusion pending. 05/20: Afebrile. Overnight the patient was noted to have thick secretions, and was lavaged 4. The patient had increasing requirements for sedation in oxygenation, CPAP trials were discontinued at 10 PM secondary to thick copious secretions. Plan for fiberoptic bronchoscopy with BAL today. Hemoglobin stable , patient remains hemodynamically stable off all pressors. 05/21: Patient febrile, copious thick secretions noted. ID following , expansion of antibiotic coverage. Initiation of tube feeds. Patient remains hemodynamically stable. 05/22: Tmax 99.9. No acute issues overnight the patient continues on Precedex and propofol infusions. She remains alert GCS 11 T communicating by writing, and responsive to yes and no questions. Patient continues to have bilateral lung consolidations, antibiotics expanded per ID. Cultures continue to be pending. Patient tolerating tube feeds will advance as tolerated. 05/23:TMax 100.9. Cultures are pending. C. difficile antigen ordered .The patient is awake and responsive on Precedex and propofol infusions. The patient tolerated CPAP trials of 8 hours yesterday. Chest x-ray pending. Tube feedings increased. Hemodynamically stable. 05/24: Tolerated PSV trial strep 7 hours yesterday. Currently afebrile. MAXIMUM TEMPERATURE 100.3. Tolerating tube feeds. Positive BM. 05/25: Episodes of hypoxia overnight. FiO2 50%. Chest x-ray shows bilateral pulmonary basilar infiltrates/edema. I will add 2 mg IV Bumex 1 now and 1 mg every 12. SBT as tolerated Subjective 05/26/17: Chest x-ray continues to show bilateral infiltrates FiO2 at 45%. Slight increase in creatinine with diuresis. A stat CT of the chest shows extensive bilateral infiltrates most likely secondary to pulmonary edema. I will give additional 2 mg IV Bumex 1 with IV albumin. Failed CPAP trial yesterday. Objective Vital Signs Date Time Temp Pulse Resp B/P Pulse Ox O2 Delivery O2 Flow Rate FiO2 05/26/17 08:15 94 45 05/26/17 08:00 60 05/26/17 07:00 24 170/74 05/26/17 04:00 99.7 Intake and Output 05/25/17 05/25/17 05/25/17 07:59 15:59 23:59 Intake Total 797 ml 730 ml 734 ml Output Total 400 ml 1950 ml 1000 ml Balance 397 ml -1220 ml -266 ml Result Diagram: 05/26/17 0426 05/26/17 0426 Imaging Last Impressions Chest X-Ray 05/24/17 0600 Signed Impressions: Service Date/Time: May 03:17 - CONCLUSION: No significant change has occurred. Sterling Guevara MD Objective Remarks GENERAL: Well-nourished, well-developed patient, awake, following commands on dexmedetomidine SKIN: Warm and dry. Well perfused HEAD: Normocephalic. EYES: Pupils are equally round and reactive to light and accommodation. No scleral icterus. No injection or drainage. NECK: Supple, trachea midline. No JVD or lymphadenopathy. CARDIOVASCULAR: RRR. S1, S2. No S4. Without murmur RESPIRATORY: Few coarse crackles appreciated throughout all lung boyer. Symmetrical excursion. No wheezing. GASTROINTESTINAL: Abdomen soft, protuberant, non-tender, hypoactive bowel sounds. Thrush noted on lateral distal tongue MUSCULOSKELETAL: Trace nonpitting lower extremity edema bilaterally. BACK: Nontender without obvious deformity. NEURO EXAM: Cranial nerves II through XII grossly intact. Moves all 4 extremity spontaneously to command. No focal deficits Urinary Catheter: Yes Assessment to: Continue A/P Assessment and Plan NEURO/Psych: Depression disorder NOS Anxiety disorder NOS Chronic benzodiazepine use Patient is currently on Dexmedetomidine. Added Ativan 0.5 mg po q12 (Home med) DC Xanax on 05/25/17 Goal of RA SS -2. Sedation vacation daily Continue buspirone 30 mg twice a day anxiety Acetaminophen 650 mg by mouth every 6 hours when necessary fever/pain Respiratory: Acute hypercapnic hypoxic Respiratory failure HCAP Pulmonary edema ACV ventilation. Albuterol/Atrovent aerosols every 6 hours with albuterol aerosols every 2 hours when necessary breakthrough Daily SBT, Ventilator bundle No endotracheal cuff leak, but patient has 8.0 ETT. Continue dexamethasone 4 mg IV every 6 hours times x [address] chest 05/26: Bilateral extensive infiltrates probably pulmonary edema Continue broad-spectrum antibiotics CV: Coronary artery disease Pulmonary edema Dyslipidemia Hypertension High degree AV block-now resolved - 05/17 Status post angioplasty and stents of the distal LAD and mid LAD, and angioplasty and stenting of the proximal/ostial RCA On carvedilol 6.25 mg by mouth twice a day for hypertension. On lisinopril 10 mg daily for hypertension-hold while diuresing -Clonidine 0.1 mg q8 and continue hydralazine 10 mill grams 3 times a day Temporary Pacemaker is been removed 05/18 (Home medications are losartan/hctz 300 mg/12.5 mg daily with additional hydrochlorothiazide 12.5 mg additional daily. Hypertension along with metoprolol 50 mg by mouth twice a day and clonidine 0.1 mg by mouth twice a day and Norvasc 5 mg twice a day and diltiazem 240 mg by mouth daily and hydralazine 10 mg 3 times a day) - Aspirin 81 mg by mouth daily - Ticagrelor 90 mg by mouth twice a day for stent - Atorvastatin 80 mg by mouth daily for dyslipidemia. Holding fish oil/ cholecalciferol 1000/100 3 tablets twice a day Echocardiogram revealed EF 60-65%. Asymmetric septal hypertrophy. Trace MR. Bumex 2 mg IV 1 with IV albumin. Hold scheduled Bumex ID: Possible HCAP Oral thrush Bilateral infiltrate on chest x-ray most likely from pulmonary edema -these infiltrates present on CXR immediately after intubation, so VAP is unlikely. ALL cultures negative Currently cefepime/Levaquin per infectious disease. Vancomycin discontinued 05/23. On nystatin swish and spit every 6 hours -Secretions diminished -05/20 fiberoptic bronchoscopy with BAL no growth -Antibiotics per ID recommendation- Dr. Godinez -Legionella, pneumococcal, influenza A and B antigens- results negative -Repeat urine and blood cultures no growth Endo Diabetes mellitus - Insulin sliding scale with NovoLog, low dose regimen. Holding metformin 750 mg twice a day/home medication FEN Hypernatremia Free water 200 every 8. Follow-up CBC in a.m. Renal Chronic kidney disease stage 3 - Creatinine improved - Monitor I's and O - Monitor Electrolytes and creatinine level GI prophylaxis Pepcid DVT- Teds SCDs heparin subcutaneous Dispo: Discussed with daughter, and ARBORIST REPRESENTATIVE at bedside. Critical Care: 35 minutes Rudolph Rosenberg MD May 26, 2017 10:04
[2017-05-26] MEDS ORDERED: ALBUMIN HUMAN 25% 25 GM/100 ML BAGP IV ONE ×2 (11:00→14:00)
[2017-05-26] MEDS ORDERED: BUMETANIDE INJ 1 MG/4 ML VIAL IV PUSH ONE ×4 (11:00→16:45)
[2017-05-26 11:33] LABS: ANION GAP 8 MEQ/L (5-15); AST (GOT) 37 U/L (15-37); BICARBONATE 25.8 MEQ/L (21.0-32.0); BLOOD UREA NITROGEN 42 MG/DL (7-18); CHLORIDE 107 MEQ/L (98-107); GLOMERULAR FILTRATION RATE 47 ML/MIN (>89); POTASSIUM 3.9 MEQ/L (3.5-5.1); SODIUM (NA) 141 MEQ/L (136-145)
[2017-05-26 11:34] LABS: ALT (GPT) 55 U/L (10-53)
[2017-05-26 11:36] LABS: ALKALINE PHOSPHATASE 77 U/L (45-117); TOTAL BILIRUBIN ADULT 0.4 MG/DL (0.2-1.0)
[2017-05-26] MEDS: hydrALAZINE HCL 20 MG/ML VIAL IV PUSH PRN (12:19)
[2017-05-26] MEDS: BUMETANIDE INJ 1 MG/4 ML VIAL IV PUSH SCH (12:21)
[2017-05-26] MEDS ORDERED: POTASSIUM CHLORIDE 25 MEQ EFFERVESCENT TAB PO ONE (13:00)
[2017-05-26 14:15] LABS: BLOOD GAS BASE EXCESS 2.3 mmol/L (-2-2); BLOOD GAS CARBOXYHEMOGLOBIN 1.3 % (0-4); BLOOD GAS HCO3 26 mmol/L (22-26); BLOOD GAS METHEMOGLOBIN 1.1 % (0-2); BLOOD GAS O2 HGB SATURATION 95 % (90-100); BLOOD GAS OXYGEN CONTENT 19.1 Vol % (12.0-20.0); BLOOD GAS PCO2 35 mmHg (38-42); BLOOD GAS PO2 101 mmHg (61-120); BLOOD GAS TOTAL HGB 14.2 G/DL (12.0-16.0); CRITICAL VALUE NO; OXYGEN DEVICE VENTILATOR; TEMP CORR TO 98.6; VENT SETTINGS CPAP 5/PS 5
[2017-05-26 14:16] LABS: DRAW SITE RT RADIAL; FIO2 45 %; NUMBER OF ARTERIAL PUNCTURES 1; STAT NO; ULNAR PULSE PRESENT
[2017-05-26] MEDS: RESP: RACEPINEPHRINE 2.25% 0.5 ML NEB NEB PRN (15:54)
[2017-05-26] MEDS ORDERED: POTASSIUM CHLOR 20 MEQ PREMIX 100 ML IV ONE (17:00)
[2017-05-26] MEDS: ATORVASTATIN 10 MG TAB PO SCH (20:55)
[2017-05-26] MEDS: BENZONATATE 100 MG CAP PO PRN (21:58)
[2017-05-27] VITALS (35 sets, daily range): BP systolic 127–203; BP diastolic 58–82; PULSE 59–71; RESP 23–35; TEMP 98.3–100.3; O2SAT 90–100
[2017-05-27] MEDS: cloNIDine HCL 0.1 MG TAB PO SCH ×3 (00:35→16:01)
[2017-05-27] MEDS: DEXMEDETOMIDINE INJ 200 MCG in SODIUM CHLORIDE 0.9% INJ 50 ML IV SCH ×2 (00:38→04:16)
[2017-05-27] MEDS: guaiFENesin SOLUTION 200 MG/10 ML CUP PO PRN (00:51)
[2017-05-27] MEDS: hydrALAZINE HCL 20 MG/ML VIAL IV PUSH PRN ×3 (01:35→12:25)
[2017-05-27] MEDS: RESP: ALBUTEROL 2.5 MG/IPRATROPIUM 0.5 MG NEB (SCH) NEB ×4 (04:00→20:31)
[2017-05-27] MEDS: ARTIFICIAL TEARS OPTH SOLN 15 ML BTL EACH EYE SCH ×3 (04:17→22:00)
[2017-05-27] MEDS: FREE WATER G-TUBE SCH (04:19)
[2017-05-27] MEDS: ONDANSETRON HCL 4 MG/2 ML VIAL IV PUSH PRN ×2 (04:44→08:23)
[2017-05-27 05:13] LABS: AUTOMATED NEUTROPHIL # 7.8 TH/MM3 (1.8-7.7); BASOPHIL % 0.5 % (0.0-2.0); EOSINOPHIL # 0.2 TH/MM3 (0-0.4); EOSINOPHIL % 2.3 % (0.0-4.0); HEMATOCRIT 24.6 % (35.0-46.0); LYMPH % 10.1 % (9.0-44.0); MEAN CELL VOLUME 83.9 FL (80.0-100.0); MEAN CORPUSCULAR HEMOGLOBIN 28.7 PG (27.0-34.0); MEAN CORPUSCULAR HGB CONC 34.2 % (32.0-36.0); MONO % 5.9 % (0.0-8.0); NEUT % 81.2 % (16.0-70.0); PLATELET COUNT 212 TH/MM3 (150-450); RED BLOOD COUNT 2.93 MIL/MM3 (4.00-5.30); RED CELL DISTRIBUTION WIDTH 15.5 % (11.6-17.2); WHITE BLOOD COUNT 9.6 TH/MM3 (4.0-11.0)
[2017-05-27 05:14] LABS: HEMO FLAGS AUTO DIFF
[2017-05-27] MEDS: INSULIN ASPART SUPPLEMENTAL SCALE SQ SCH ×4 (05:46→17:01)
[2017-05-27 05:53] LABS: BANDS 5 % (0-6); EOSINOPHILS 2 % (0-4); NEUTROPHIL # MANUAL DIFF 7.8 TH/MM3 (1.8-7.7); POLYS (SEG NEUTROPHILS) 76 % (16-70); WBC DIFF SAMPLE 100
[2017-05-27 05:54] LABS: OVALOCYTES 1+ (NORMAL); PLATELET ESTIMATE SMEAR NORMAL (NORMAL); PLATELET MORPHOLOGY NORMAL (NORMAL); SCAN/DIFF FINAL DIFF MANUAL
--- NOTE | 2017-05-27 05:58 | RADRPT ---
EXAM DATE/TIME: 05/27/2017 03:19 [facility] COMPARISON: CHEST SINGLE AP, May 26, 2017, 3:30. INDICATIONS : Shortness of breath, possible pulmonary disease. MEDICAL HISTORY : Myocardial infarction. Hypertension Diabetes mellitus type II. SURGICAL HISTORY : None. ENCOUNTER: Subsequent ACUITY: 1 week PAIN SCORE: Non-responsive. LOCATION: Bilateral chest FINDINGS: A single view of the chest demonstrates slight improvement of bilateral patchy airspace disease. The cardiomediastinal contours are unremarkable. Osseous structures are intact. CONCLUSION: Slightly improved bilateral patchy airspace disease.. Shabbir Benjamin MD on May 27, 2017 at 5:56 Board Certified Radiologist. This report was verified electronically.
[2017-05-27] MEDS ORDERED: BISACODYL 10 MG SUPP RECTAL PRN (07:00)
[2017-05-27] MEDS ORDERED: BISACODYL 10 MG SUPP RECTAL ONE (07:00)
--- NOTE | 2017-05-27 07:47 | HHI.CCPN ---
Subjective Remarks/Hospital Course 81-year-old very pleasant female with a history of HTN, atrial fibrillation, DM , CT, and CKD stage 3 presented to the ED with complaints of a cough, shortness of breath and chest tightness for the last week. She states she has had a productive cough with white sputum production with increasing shortness of breath. She was admitted to ICU and while in the unit she became significantly bradycardic due to complete heart block, also in respiratory distress and severe hypoxemia. She was emergently intubated and taken to cardiac catheterization lab for retrograde heart catheterization with left ventriculography and selective coronary angiography, angioplasty and stenting of the distal left anterior descending artery and mid left anterior descending artery, and angioplasty and stenting of the proximal/ostial right coronary artery. Also transvenous pacemaker placement. Subjective: 05/18: The patient underwent cardiac stenting yesterday, maintain some intubated, with transvenous pacemaker. Dopamine has been weaned off this afternoon. Plan for CPAP trials with planned extubation in the a.m.. Heparin has been discontinued this afternoon with plans for removal of venous sheath. The patient remains hemodynamically stable. 05/19: Femoral sheath with transvenous pacemaker removed last evening. Hemodynamically stable. Carvedilol and lisinopril initiated this a.m.. Patient sedation change to Precedex in anticipation for possible extubation. The patient has tolerated CPAP trials greater than 12 hours, however failed SBT this evening. Patient's hemoglobin was noted to be 7.7 this a.m. patient received 1 unit of packed red blood cells CBC post transfusion pending. 05/20: Afebrile. Overnight the patient was noted to have thick secretions, and was lavaged 4. The patient had increasing requirements for sedation in oxygenation, CPAP trials were discontinued at 10 PM secondary to thick copious secretions. Plan for fiberoptic bronchoscopy with BAL today. Hemoglobin stable , patient remains hemodynamically stable off all pressors. 05/21: Patient febrile, copious thick secretions noted. ID following , expansion of antibiotic coverage. Initiation of tube feeds. Patient remains hemodynamically stable. 05/22: Tmax 99.9. No acute issues overnight the patient continues on Precedex and propofol infusions. She remains alert GCS 11 T communicating by writing, and responsive to yes and no questions. Patient continues to have bilateral lung consolidations, antibiotics expanded per ID. Cultures continue to be pending. Patient tolerating tube feeds will advance as tolerated. 05/23:TMax 100.9. Cultures are pending. C. difficile antigen ordered .The patient is awake and responsive on Precedex and propofol infusions. The patient tolerated CPAP trials of 8 hours yesterday. Chest x-ray pending. Tube feedings increased. Hemodynamically stable. 05/24: Tolerated PSV trial strep 7 hours yesterday. Currently afebrile. MAXIMUM TEMPERATURE 100.3. Tolerating tube feeds. Positive BM. 05/25: Episodes of hypoxia overnight. FiO2 50%. Chest x-ray shows bilateral pulmonary basilar infiltrates/edema. I will add 2 mg IV Bumex 1 now and 1 mg every 12. SBT as tolerated Subjective 05/26/17: Chest x-ray continues to show bilateral infiltrates FiO2 at 45%. Slight increase in creatinine with diuresis. A stat CT of the chest shows extensive bilateral infiltrates most likely secondary to pulmonary edema. I will give additional 2 mg IV Bumex 1 with IV albumin. Failed CPAP trial yesterday. 05/27/17: Extubated yesterday. Single episode of vomiting vital BiPAP. Currently on partial nonrebreather with saturation 98%. Chest x-ray shows interval improvement in bilateral infiltrates. Urine output more than 5 L with Bumex. Remains hypertensive. Increase Coreg to 12.5 twice a day, increase hydralazine to 50 every 8 hours Objective Vital Signs Date Time Temp Pulse Resp B/P Pulse Ox O2 Delivery O2 Flow Rate FiO2 05/27/17 06:00 65 05/27/17 04:31 29 155/68 90 05/27/17 04:00 Partial Rebreather 12.00 05/27/17 04:00 99.4 05/26/17 23:30 45 Intake and Output 05/26/17 05/26/17 05/27/17 08:00 16:00 00:00 Intake Total 739 ml 1179 ml 259 ml Output Total 475.0 ml 2775 ml 2710 ml Balance 264.0 ml -1596 ml -2451 ml Result Diagram: 05/27/17 0350 05/26/17 1055 Other Results Laboratory Tests Test 05/26/17 14:10 Blood Gas Puncture Site RT RADIAL Blood Gas Patient Temperature 98.6 Blood Gas HCO3 26 mmol/L (22-26) Blood Gas Base Excess 2.3 mmol/L (-2-2) Blood Gas Oxygen Saturation 95 % (90-100) Arterial Blood pH 7.48 (7.380-7.420) Arterial Blood Partial 35 mmHg (38-42) Pressure CO2 Arterial Blood Partial 101 mmHg Pressure O2 (61-120) Arterial Blood Oxygen Content 19.1 Vol % (12.0-20.0) Arterial Blood 1.3 % (0-4) Carboxyhemoglobin Arterial Blood Methemoglobin 1.1 % (0-2) Blood Gas Hemoglobin 14.2 G/DL (12.0-16.0) Oxygen Delivery Device VENTILATOR Blood Gas Ventilator Setting CPAP 5/PS 5 Blood Gas Inspired Oxygen 45 % Imaging Last Impressions Chest X-Ray 05/24/17 0600 Signed Impressions: Service Date/Time: May 03:17 - CONCLUSION: No significant change has occurred. Sterling Guevara MD Objective Remarks GENERAL: Well-nourished, well-developed patient, awake, following on pNRB SKIN: Warm and dry. Well perfused HEAD: Normocephalic. EYES: Pupils are equally round and reactive to light and accommodation. No scleral icterus. No injection or drainage. NECK: Supple, trachea midline. No JVD or lymphadenopathy. CARDIOVASCULAR: RRR. S1, S2. No S4. Without murmur RESPIRATORY: Few coarse crackles appreciated at bases. Symmetrical excursion. No wheezing. GASTROINTESTINAL: Abdomen soft, protuberant, non-tender, hypoactive bowel sounds. Thrush noted on lateral distal tongue MUSCULOSKELETAL: Trace nonpitting lower extremity edema bilaterally. BACK: Nontender without obvious deformity. NEURO EXAM: Alert oriented. normal speech, voice soft. Moves all 4 extremity spontaneously to command. No focal deficits Urinary Catheter: Yes Assessment to: Continue A/P Assessment and Plan NEURO/Psych: Depression disorder Anxiety disorder Chronic benzodiazepine use Continue Ativan 0.5 mg po q12 (Home med) DCd Xanax on 05/25/17 Continue buspirone 30 mg twice a day anxiety Acetaminophen 650 mg by mouth every 6 hours when necessary fever/pain Respiratory: Acute hypercapnic hypoxic Respiratory failure Possible HCAP Pulmonary edema Extubated 05/26. So far tolerating, but intermittently requiring pNRB. Cannot tolerate BiPAP Albuterol/Atrovent aerosols every 6 hours with albuterol aerosols every 2 hours when necessary breakthrough EzPAP, Acapella, IS ordered s/p dexamethasone 4 mg IV every 6 hours times x [address] chest 05/26: Bilateral extensive infiltrates probably pulmonary edema Continue broad-spectrum antibiotics CV: Coronary artery disease Pulmonary edema Dyslipidemia Hypertension High degree AV block-now resolved -05/17 Status post angioplasty and stents of the distal LAD and mid LAD, and angioplasty and stenting of the proximal/ostial RCA Echocardiogram revealed EF 60-65%. Asymmetric septal hypertrophy. Trace MR. Increase carvedilol to 12.5 mg by mouth twice a day for hypertension 05/26. Holding lisinopril 10 mg daily while diuresing -Clonidine 0.2 mg q8 and increase hydralazine 50 mg ill grams 3 times a day Temporary Pacemaker is been removed 05/18 (Home medications are losartan/hctz 300 mg/12.5 mg daily with additional hydrochlorothiazide 12.5 mg additional daily. Hypertension along with metoprolol 50 mg by mouth twice a day and clonidine 0.1 mg by mouth twice a day and Norvasc 5 mg twice a day and diltiazem 240 mg by mouth daily and hydralazine 10 mg 3 times a day) - Aspirin 81 mg by mouth daily - Ticagrelor 90 mg by mouth twice a day for stent - Atorvastatin 80 mg by mouth daily for dyslipidemia. Holding fish oil/ cholecalciferol 1000/100 3 tablets twice a day Bumex 2 mg IV 1 with IV albumin. Holding scheduled Bumex ID: Possible HCAP, but infiltrates are most likely from pulm edema Oral thrush Bilateral infiltrate on chest x-ray most likely from pulmonary edema -these infiltrates present on CXR immediately after intubation, so VAP is unlikely. ALL cultures negative Currently cefepime/Levaquin per infectious disease. Vancomycin discontinued 05/23. On nystatin swish and spit every 6 hours -Secretions diminished -05/20 fiberoptic bronchoscopy with BAL no growth -Antibiotics per ID recommendation- Dr. Godinez -Legionella, pneumococcal, influenza A and B antigens- results negative -Repeat urine and blood cultures no growth Endo Diabetes mellitus - Insulin sliding scale with NovoLog, low dose regimen. Holding metformin 750 mg twice a day/home medication FEN Hypernatremia Free water 200 every 8. Renal Chronic kidney disease stage 3 - Creatinine stable - Monitor I's and O - Monitor Electrolytes and creatinine level GI prophylaxis Pepcid DVT- Teds SCDs heparin subcutaneous Dispo: Discussed with daughter, and THREAT MONITORING ANALYST at bedside. Critical Care: Level 3 Critically ill but stabilizing. Continue ICU care Rudolph Hernandez MD May 27, 2017 07:47
[2017-05-27 07:54] LABS: ANION GAP 9 MEQ/L (5-15); AST (GOT) 24 U/L (15-37); BICARBONATE 30.4 MEQ/L (21.0-32.0); BLOOD UREA NITROGEN 37 MG/DL (7-18); CHLORIDE 103 MEQ/L (98-107); GLOMERULAR FILTRATION RATE 43 ML/MIN (>89); POTASSIUM 4.1 MEQ/L (3.5-5.1); SODIUM (NA) 142 MEQ/L (136-145)
[2017-05-27] MEDS ORDERED: ALBUMIN HUMAN 25% 25 GM/100 ML BAGP IV ONE (08:00)
[2017-05-27] MEDS ORDERED: BUMETANIDE INJ 1 MG/4 ML VIAL IV PUSH ONE (08:00)
[2017-05-27 08:02] LABS: ALKALINE PHOSPHATASE 75 U/L (45-117); ALT (GPT) 43 U/L (10-53); TOTAL BILIRUBIN ADULT 0.8 MG/DL (0.2-1.0)
[2017-05-27] MEDS: HEPARIN SODIUM - SQ 10,000 UNITS/ML VIAL SQ SCH ×2 (08:22→20:09)
[2017-05-27] MEDS: FAMOTIDINE 20 MG/2 ML VIAL IV PUSH SCH ×2 (08:22→20:04)
[2017-05-27] MEDS: SODIUM CHLORIDE 0.9% FLUSH 10 ML FLUSH IV FLUSH SCH ×2 (08:23→20:03)
[2017-05-27] MEDS: CHLORHEXIDINE 0.12% (ORAL KIT) 15 ML CUP MT SCH ×2 (08:23→20:00)
[2017-05-27] MEDS: TICAGRELOR 90 MG TAB PO SCH ×2 (09:00→20:10)
[2017-05-27] MEDS: ASPIRIN EC 81 MG TABEC PO SCH (09:00)
[2017-05-27] MEDS: busPIRone HCL 10 MG TAB PO SCH ×2 (09:00→20:09)
[2017-05-27] MEDS: NYSTATIN SUSP 500,000 U/5 ML CUP SWISH-SWAL SCH ×4 (09:00→20:10)
[2017-05-27] MEDS: CARVEDILOL 12.5 MG TAB PO SCH ×2 (10:15→20:04)
[2017-05-27] MEDS: LORazepam 0.5 MG TAB PO SCH ×2 (10:15→20:09)
[2017-05-27] MEDS: hydrALAZINE HCL 50 MG TAB PO SCH ×2 (13:54→20:04)
[2017-05-27] MEDS: BENZONATATE 100 MG CAP PO PRN ×2 (14:56→21:32)
[2017-05-27] MEDS: ATORVASTATIN 10 MG TAB PO SCH (20:09)
[2017-05-27] MEDS: ZOLPIDEM TARTRATE 5 MG TAB PO PRN (21:32)
[2017-05-28] VITALS (25 sets, daily range): BP systolic 121–182; BP diastolic 56–78; PULSE 60–82; RESP 23–33; TEMP 97.8–99.3; O2SAT 89–100
[2017-05-28] MEDS: cloNIDine HCL 0.1 MG TAB PO SCH ×2 (00:46→08:52)
[2017-05-28] MEDS: guaiFENesin SOLUTION 200 MG/10 ML CUP PO PRN (00:47)
[2017-05-28] MEDS: RESP: ALBUTEROL 2.5 MG/IPRATROPIUM 0.5 MG NEB (SCH) NEB ×4 (03:54→20:39)
[2017-05-28] MEDS: hydrALAZINE HCL 50 MG TAB PO SCH ×3 (04:18→19:49)
[2017-05-28] MEDS: ARTIFICIAL TEARS OPTH SOLN 15 ML BTL EACH EYE SCH ×3 (04:20→20:00)
[2017-05-28] MEDS: BENZONATATE 100 MG CAP PO PRN (04:20)
--- NOTE | 2017-05-28 05:13 | RADRPT ---
EXAM DATE/TIME: 05/28/2017 04:28 [facility] COMPARISON: CHEST SINGLE AP, May 27, 2017, 3:19. INDICATIONS : Shortness of breath, possible pulmonary disease. MEDICAL HISTORY : Myocardial infarction. Hypertension Diabetes mellitus type II. SURGICAL HISTORY : None. ENCOUNTER: Subsequent ACUITY: 1 week PAIN SCORE: Non-responsive. LOCATION: Bilateral chest FINDINGS: Increasing infiltrates in both lungs with interval development of consolidation in the retrocardiac r egion and patchy air of infiltrates in the mid and lower lungs bilaterally. There is loss of delinea tion of the left hemidiaphragm. The heart is normal size. CONCLUSION: Increasing bilateral infiltrates mid and lower lungs, and interval development of consolidation in th e left lower lung. Arik Cosby MD on May 28, 2017 at 5:10 Board Certified Radiologist. This report was verified electronically.
[2017-05-28] MEDS: INSULIN ASPART SUPPLEMENTAL SCALE SQ SCH ×4 (06:10→17:02)
[2017-05-28 07:09] LABS: AUTOMATED NEUTROPHIL # 9.5 TH/MM3 (1.8-7.7); BASOPHIL % 0.3 % (0.0-2.0); EOSINOPHIL # 0.1 TH/MM3 (0-0.4); EOSINOPHIL % 1.2 % (0.0-4.0); HEMO FLAGS DIFF FINAL; LYMPH % 10.2 % (9.0-44.0); LYMPHOCYTE # 1.2 TH/MM3 (1.0-4.8); MEAN CELL VOLUME 84.2 FL (80.0-100.0); MEAN CORPUSCULAR HEMOGLOBIN 28.3 PG (27.0-34.0); MEAN CORPUSCULAR HGB CONC 33.6 % (32.0-36.0); MONO % 4.8 % (0.0-8.0); NEUT % 83.5 % (16.0-70.0); PLATELET COUNT 244 TH/MM3 (150-450); RED BLOOD COUNT 2.96 MIL/MM3 (4.00-5.30); RED CELL DISTRIBUTION WIDTH 15.7 % (11.6-17.2); WHITE BLOOD COUNT 11.4 TH/MM3 (4.0-11.0)
[2017-05-28 07:12] LABS: ANION GAP 7 MEQ/L (5-15); BICARBONATE 31.1 MEQ/L (21.0-32.0); BLOOD UREA NITROGEN 42 MG/DL (7-18); CHLORIDE 102 MEQ/L (98-107); GLOMERULAR FILTRATION RATE 45 ML/MIN (>89); MAGNESIUM 2.4 MG/DL (1.5-2.5); POTASSIUM 3.7 MEQ/L (3.5-5.1); SODIUM (NA) 140 MEQ/L (136-145)
[2017-05-28 07:14] LABS: ALT (GPT) 32 U/L (10-53); AST (GOT) 28 U/L (15-37)
[2017-05-28 07:16] LABS: ALKALINE PHOSPHATASE 69 U/L (45-117)
[2017-05-28] MEDS: CHLORHEXIDINE 0.12% (ORAL KIT) 15 ML CUP MT SCH ×2 (08:00→19:50)
[2017-05-28] MEDS: NYSTATIN SUSP 500,000 U/5 ML CUP SWISH-SWAL SCH ×4 (08:52→19:49)
[2017-05-28] MEDS: busPIRone HCL 10 MG TAB PO SCH ×2 (08:52→19:51)
[2017-05-28] MEDS: ASPIRIN EC 81 MG TABEC PO SCH (08:52)
[2017-05-28] MEDS: TICAGRELOR 90 MG TAB PO SCH ×2 (08:53→19:58)
[2017-05-28] MEDS: SODIUM CHLORIDE 0.9% FLUSH 10 ML FLUSH IV FLUSH SCH ×2 (08:53→19:51)
[2017-05-28] MEDS: CARVEDILOL 12.5 MG TAB PO SCH ×2 (08:53→19:51)
[2017-05-28] MEDS: HEPARIN SODIUM - SQ 10,000 UNITS/ML VIAL SQ SCH ×2 (08:53→19:50)
[2017-05-28] MEDS: FAMOTIDINE 20 MG/2 ML VIAL IV PUSH SCH ×2 (08:53→19:48)
[2017-05-28] MEDS: LORazepam 0.5 MG TAB PO SCH ×2 (08:53→19:51)
--- NOTE | 2017-05-28 09:22 | HHI.IDPN ---
Subjective Subjective Remarks Patient is a 81-year-old female, presented to the hospital complaining of cough , shortness of breath and chest tightness for one week. She was bringing up some whitish phlegm. She had worsening shortness of breath and presented to the hospital for further evaluation and treatment. She has had chills the night of admission. No nausea or vomiting or any urinary complaints. On presentation she ruled in for an CT. She had high grade AV block, and underwent emergent cardiac catheterization. She had some interventions done, and she also had placement of a temporary pacemaker. He ended up getting intubated. She's been intubated since. She had the fever initially, and that has improved, however since yesterday she started having fevers again. She apparently was having a lot of secretions, and required bronchoscopy yesterday. She is febrile today. She is awake and responding. She is on the vent. Infectious disease consultation has been requested to evaluate the patient. Notes reviewed Extubated this weekend On NRB mask, sats 99% Has very moist and weak cough BP ok Finished Abx this weekend One low grade temps in the last 24 hours Sputum culture with normal respiratory jose alejandro CXR yesterday better, worse today, ?atelectasis on top of her consolidation Had N/V after extubation No vomiting since yesterday morning Antibiotics None Past Medical History HTN DM CT CKD stage 3 Past Surgical History Heart stents Cholecystectomy Hysterectomy Allergies: Coded Allergies: Zocor (Verified Allergy, Severe, ARMS SWELL, 05/16/17) Objective . Vital Signs Date Time Temp Pulse Resp B/P Pulse Ox O2 Delivery O2 Flow Rate FiO2 05/28/17 08:01 97.8 73 24 162/69 05/28/17 08:00 74 05/28/17 06:30 75 25 140/63 98 05/28/17 06:01 75 31 139/62 96 05/28/17 06:00 76 27 97 05/28/17 06:00 76 05/28/17 05:30 71 27 155/66 100 05/28/17 05:00 74 23 147/66 98 05/28/17 04:30 68 28 157/68 95 05/28/17 04:00 66 27 148/64 89 05/28/17 04:00 66 05/28/17 03:30 65 27 139/63 92 05/28/17 03:00 63 25 128/60 98 05/28/17 02:30 62 24 126/62 98 05/28/17 02:00 60 05/28/17 02:00 60 25 136/63 98 05/28/17 01:31 68 26 121/56 94 05/28/17 01:00 71 33 131/77 93 05/28/17 00:30 64 25 129/78 98 05/28/17 00:00 66 05/28/17 00:00 98.5 66 28 128/59 97 05/27/17 23:00 62 24 137/63 100 05/27/17 22:31 62 25 127/58 100 05/27/17 22:01 64 27 148/64 100 05/27/17 22:00 65 05/27/17 22:00 65 27 99 05/27/17 21:30 68 29 152/69 98 05/27/17 21:01 68 31 146/67 98 05/27/17 21:00 69 31 97 05/27/17 20:31 64 27 175/73 99 05/27/17 20:30 98 Partial Rebreather 12.00 05/27/17 20:00 69 05/27/17 20:00 98.3 69 25 181/71 95 05/27/17 19:31 62 26 159/69 98 05/27/17 19:01 66 26 162/70 98 05/27/17 19:00 67 23 97 05/27/17 18:00 71 05/27/17 16:00 71 05/27/17 16:00 100.3 71 33 152/68 94 05/27/17 14:00 71 05/27/17 12:00 98.9 60 26 181/77 100 05/27/17 12:00 60 05/27/17 10:00 70 05/27/17 05/27/17 05/28/17 14:59 22:59 06:59 Intake Total 221 ml Output Total 1675 ml 376 ml 345 ml Balance -1454 ml -376 ml -345 ml IV Total 121 ml Albumin 100 ml Output Urine Total 1675 ml 375 ml 345 ml Stool Total 1 ml # Bowel Movements 1 . Laboratory Tests Test 05/27/17 05/28/17 03:50 05:01 White Blood Count 9.6 TH/MM3 11.4 TH/MM3 Red Blood Count 2.93 MIL/MM3 2.96 MIL/MM3 Hemoglobin 8.4 GM/DL 8.4 GM/DL Hematocrit 24.6 % 25.0 % Mean Corpuscular Volume 83.9 FL 84.2 FL Mean Corpuscular Hemoglobin 28.7 PG 28.3 PG Mean Corpuscular Hemoglobin 34.2 % 33.6 % Concent Red Cell Distribution Width 15.5 % 15.7 % Platelet Count 212 TH/MM3 244 TH/MM3 Mean Platelet Volume 7.9 FL 7.8 FL Neutrophils (%) (Auto) 81.2 % 83.5 % Lymphocytes (%) (Auto) 10.1 % 10.2 % Monocytes (%) (Auto) 5.9 % 4.8 % Eosinophils (%) (Auto) 2.3 % 1.2 % Basophils (%) (Auto) 0.5 % 0.3 % Neutrophils # (Auto) 7.8 TH/MM3 9.5 TH/MM3 Lymphocytes # (Auto) 1.0 TH/MM3 1.2 TH/MM3 Monocytes # (Auto) 0.6 TH/MM3 0.5 TH/MM3 Eosinophils # (Auto) 0.2 TH/MM3 0.1 TH/MM3 Basophils # (Auto) 0.0 TH/MM3 0.0 TH/MM3 CBC Comment AUTO DIFF DIFF FINAL Differential Total Cells 100 Counted Neutrophils % (Manual) 76 % Band Neutrophils % 5 % Lymphocytes % 12 % Monocytes % 5 % Eosinophils % 2 % Neutrophils # (Manual) 7.8 TH/MM3 Differential Comment FINAL DIFF MANUAL Platelet Estimate NORMAL Platelet Morphology Comment NORMAL Ovalocytes 1+ Laboratory Tests Test 05/26/17 05/27/17 05/28/17 10:55 07:05 05:01 Sodium Level 141 MEQ/L 142 MEQ/L 140 MEQ/L Potassium Level 3.9 MEQ/L 4.1 MEQ/L 3.7 MEQ/L Chloride Level 107 MEQ/L 103 MEQ/L 102 MEQ/L Carbon Dioxide Level 25.8 MEQ/L 30.4 MEQ/L 31.1 MEQ/L Anion Gap 8 MEQ/L 9 MEQ/L 7 MEQ/L Blood Urea Nitrogen 42 MG/DL 37 MG/DL 42 MG/DL Creatinine 1.11 MG/DL 1.20 MG/DL 1.17 MG/DL Estimat Glomerular Filtration 47 ML/MIN 43 ML/MIN 45 ML/MIN Rate Random Glucose 139 MG/DL 167 MG/DL 138 MG/DL Calcium Level 8.1 MG/DL 8.8 MG/DL 8.7 MG/DL Total Bilirubin 0.4 MG/DL 0.8 MG/DL 1.0 MG/DL Aspartate Amino Transf 37 U/L 24 U/L 28 U/L (AST/SGOT) Alanine Aminotransferase 55 U/L 43 U/L 32 U/L (ALT/SGPT) Alkaline Phosphatase 77 U/L 75 U/L 69 U/L Total Protein 6.2 GM/DL 7.1 GM/DL 7.0 GM/DL Albumin 2.2 GM/DL 2.9 GM/DL 3.1 GM/DL Magnesium Level 2.4 MG/DL Imaging Chest X-Ray 05/28/17 0600 Signed Impressions: Service Date/Time: Sunday, May 28, 2017 04:28 - CONCLUSION: Increasing bilateral infiltrates mid and lower lungs, and interval development of consolidation in the left lower lung. Arik Cosby MD Chest X-Ray 05/27/17 06 Signed Impressions: Service Date/Time: Saturday, May 27, 2017 03:19 - CONCLUSION: Slightly improved bilateral patchy airspace disease.. Shabbir Benjamin MD Chest X-Ray 05/26/17 06 Signed Impressions: Service Date/Time: Friday, May 26, 2017 03:30 - CONCLUSION: Stable bilateral patchy consolidation. Shabbir Benjamin MD Chest CT 05/26/17 0000 Signed Impressions: Service Date/Time: Friday, May 26, 2017 09:31 - CONCLUSION: 1. Multiple patchy areas of consolidation of both lungs which could indicate pulmonary edema. 2. Small bilateral pleural effusions right greater than left. 3. Mediastinal adenopathy and questionable mild hilar adenopathy. 4. Mild cardiomegaly. Bandar Pruitt MD Last 72 hours Impressions Chest X-Ray 05/22/17 06 Signed Impressions: Service Date/Time: Monday, May 22, 2017 03:32 - CONCLUSION: No significant change has occurred. Sterling Guevara MD Chest X-Ray 05/21/17 06 Signed Impressions: Service Date/Time: Sunday, May 21, 2017 02:53 - CONCLUSION: Improved aeration of the left lower lobe. Sterling Guevara MD Chest X-Ray 05/20/17 0600 Signed Impressions: Service Date/Time: Saturday, May 20, 2017 03:36 - CONCLUSION: 1. Patchy alveolar disease characteristic of edema or pneumonia. There has been no significant change when compared to the prior exam. Chano Bullock MD Chest X-Ray 05/20/17 0000 Signed Impressions: Service Date/Time: Saturday, May 20, 2017 15:35 - CONCLUSION: No significant change. Bilateral infiltrates persist. No pneumothorax or other acute complication seen post bronchoscopy. David Rodriguez MD Chest X-Ray 05/20/17 0000 Signed Impressions: Service Date/Time: Saturday, May 20, 2017 13:49 - CONCLUSION: 1. Patchy bilateral pulmonary infiltrates persist without significant change. David Rodriguez MD Physical Exam GENERAL: Looks comfortable, on NRB mask SKIN: Warm and dry. No generalized rash HEAD: Atraumatic. Normocephalic. No temporal wasting, or tenderness. EYES: [place] conjunctiva. No petechia or hemorrhage. No scleral icterus. No injection or drainage. EARS, NOSE AND THROAT: Nose without bleeding or purulent nasal discharge. No sinus tenderness. Orally intubated. Mucous membranes pink and moist. NECK: Trachea midline. Supple and not tender, no meningeal signs CARDIOVASCULAR: Regular rate and rhythm. No murmurs, rubs or gallops heard RESPIRATORY: Bilateral rhonchi ABDOMEN: Soft, not distended, not tender. Bowel sounds present and normoactive. No guarding. No rebound. No organomegaly. EXTREMITIES: No clubbing, cyanosis, or edema. No calf tenderness. Well perfused and warm. NEUROLOGICAL: Non-focal PSYCHIATRIC: cooperative. LINE: No evidence of infection : Garcia in place, urine looks clear Assessment & Plan Remarks IMPRESSION Fever likely due to VAP, better - one low grade temps last 124 hours, ?due to atelecftasis - S/P PNA RX - CXR worse today, /due to atelectasis post extubation Initial presentation with CAP, has been on vent since 05/17 CT, S/P intervention Respiratory failure, extubated 05/26 RECOMMENDATION Monitor off Abx Follow temps Monitor progress Spoke with daughter Nani Godinez May 28, 2017 09:22
--- NOTE | 2017-05-28 09:57 | HHI.CCPN ---
Subjective Remarks/Hospital Course 81-year-old very pleasant female with a history of HTN, atrial fibrillation, DM , ID, and CKD stage 3 presented to the ED with complaints of a cough, shortness of breath and chest tightness for the last week. She states she has had a productive cough with white sputum production with increasing shortness of breath. She was admitted to ICU and while in the unit she became significantly bradycardic due to complete heart block, also in respiratory distress and severe hypoxemia. She was emergently intubated and taken to cardiac catheterization lab for retrograde heart catheterization with left ventriculography and selective coronary angiography, angioplasty and stenting of the distal left anterior descending artery and mid left anterior descending artery, and angioplasty and stenting of the proximal/ostial right coronary artery. Also transvenous pacemaker placement. Subjective: 05/18: The patient underwent cardiac stenting yesterday, maintain some intubated, with transvenous pacemaker. Dopamine has been weaned off this afternoon. Plan for CPAP trials with planned extubation in the a.m.. Heparin has been discontinued this afternoon with plans for removal of venous sheath. The patient remains hemodynamically stable. 05/19: Femoral sheath with transvenous pacemaker removed last evening. Hemodynamically stable. Carvedilol and lisinopril initiated this a.m.. Patient sedation change to Precedex in anticipation for possible extubation. The patient has tolerated CPAP trials greater than 12 hours, however failed SBT this evening. Patient's hemoglobin was noted to be 7.7 this a.m. patient received 1 unit of packed red blood cells CBC post transfusion pending. 05/20: Afebrile. Overnight the patient was noted to have thick secretions, and was lavaged 4. The patient had increasing requirements for sedation in oxygenation, CPAP trials were discontinued at 10 PM secondary to thick copious secretions. Plan for fiberoptic bronchoscopy with BAL today. Hemoglobin stable , patient remains hemodynamically stable off all pressors. 05/21: Patient febrile, copious thick secretions noted. ID following , expansion of antibiotic coverage. Initiation of tube feeds. Patient remains hemodynamically stable. 05/22: Tmax 99.9. No acute issues overnight the patient continues on Precedex and propofol infusions. She remains alert GCS 11 T communicating by writing, and responsive to yes and no questions. Patient continues to have bilateral lung consolidations, antibiotics expanded per ID. Cultures continue to be pending. Patient tolerating tube feeds will advance as tolerated. 05/23:TMax 100.9. Cultures are pending. C. difficile antigen ordered .The patient is awake and responsive on Precedex and propofol infusions. The patient tolerated CPAP trials of 8 hours yesterday. Chest x-ray pending. Tube feedings increased. Hemodynamically stable. 05/24: Tolerated PSV trial strep 7 hours yesterday. Currently afebrile. MAXIMUM TEMPERATURE 100.3. Tolerating tube feeds. Positive BM. 05/25: Episodes of hypoxia overnight. FiO2 50%. Chest x-ray shows bilateral pulmonary basilar infiltrates/edema. I will add 2 mg IV Bumex 1 now and 1 mg every 12. SBT as tolerated Subjective 05/26/17: Chest x-ray continues to show bilateral infiltrates FiO2 at 45%. Slight increase in creatinine with diuresis. A stat CT of the chest shows extensive bilateral infiltrates most likely secondary to pulmonary edema. I will give additional 2 mg IV Bumex 1 with IV albumin. Failed CPAP trial yesterday. 05/27/17: Extubated yesterday. Single episode of vomiting vital BiPAP. Currently on partial nonrebreather with saturation 98%. Chest x-ray shows interval improvement in bilateral infiltrates. Urine output more than 5 L with Bumex. Remains hypertensive. Increase Coreg to 12.5 twice a day, increase hydralazine to 50 every 8 hours 05/28/17: Overnight on pNRB for hypoxia, now placed on NC 6L, maintaining good O2 sat. CXR interval worsening bilateral infiltrates. Will give Bumex 2 mg IV x1 and 05mg /hr gtt for more aggressive diuresis. Check BMP q8h Objective Vital Signs Date Time Temp Pulse Resp B/P Pulse Ox O2 Delivery O2 Flow Rate FiO2 05/28/17 09:38 90 Nasal Cannula 6.00 05/28/17 08:01 97.8 73 24 162/69 05/26/17 23:30 45 Intake and Output 05/27/17 05/27/17 05/28/17 08:00 16:00 00:00 Intake Total 193 ml 221 ml Output Total 575 ml 1675 ml 376 ml Balance -382 ml -1454 ml -376 ml Result Diagram: 05/28/17 0501 05/28/17 0501 Imaging Last Impressions Chest X-Ray 05/24/17 0600 Signed Impressions: Service Date/Time: May 03:17 - CONCLUSION: No significant change has occurred. Sterling Guevara MD Objective Remarks GENERAL: Well-nourished, well-developed patient, awake, on pNRB now down to 6l NC SKIN: Warm and dry. Well perfused HEAD: Normocephalic. EYES: Pupils are equally round and reactive to light and accommodation. No scleral icterus. No injection or drainage. NECK: Supple, trachea midline. No JVD or lymphadenopathy. CARDIOVASCULAR: RRR. S1, S2. No S4. Without murmur RESPIRATORY: Few coarse crackles appreciated at bases. Symmetrical excursion. No wheezing. GASTROINTESTINAL: Abdomen soft, protuberant, non-tender, hypoactive bowel sounds. Thrush noted on lateral distal tongue MUSCULOSKELETAL: Trace nonpitting lower extremity edema bilaterally. BACK: Nontender without obvious deformity. NEURO EXAM: Alert oriented. normal speech, voice soft. Moves all 4 extremity spontaneously to command. No focal deficits A/P Assessment and Plan NEURO/Psych: Depression disorder Anxiety disorder Chronic benzodiazepine use Continue Ativan 0.5 mg po q12 (Home med) DCd Xanax on 05/25/17 Continue buspirone 30 mg twice a day anxiety Acetaminophen 650 mg by mouth every 6 hours when necessary fever/pain Respiratory: Acute hypercapnic hypoxic Respiratory failure Possible HCAP Pulmonary edema Extubated 05/26. On NC 6L. Cannot tolerate BiPAP Albuterol/Atrovent aerosols every 6 hours with albuterol aerosols every 2 hours when necessary breakthrough EzPAP, Acapella, IS s/p dexamethasone 4 mg IV every 6 hours times x [address] chest 05/26: Bilateral extensive infiltrates probably pulmonary edema Continue broad-spectrum antibiotics CV: Coronary artery disease Pulmonary edema Dyslipidemia Hypertension High degree AV block-now resolved 05/17 Status post angioplasty and stents of the distal LAD and mid LAD, and angioplasty and stenting of the proximal/ostial RCA Echocardiogram revealed EF 60-65%. Asymmetric septal hypertrophy. Trace MR. Carvedilol to 12.5 mg by mouth twice a day for hypertension 05/26. Holding lisinopril 10 mg daily while diuresing Clonidine 0.3 mg q8 and hydralazine 50 mg ill grams 3 times a day Temporary Pacemaker is been removed 05/18 (Home medications are losartan/hctz 300 mg/12.5 mg daily with additional hydrochlorothiazide 12.5 mg additional daily. Hypertension along with metoprolol 50 mg by mouth twice a day and clonidine 0.1 mg by mouth twice a day and Norvasc 5 mg twice a day and diltiazem 240 mg by mouth daily and hydralazine 10 mg 3 times a day) Aspirin 81 mg by mouth daily Ticagrelor 90 mg by mouth twice a day for stent Atorvastatin 80 mg by mouth daily for dyslipidemia. Holding fish oil/ cholecalciferol 1000/100 3 tablets twice a day Bumex 2 mg IV 1 with IV albumin. Start Bumex gtt 0.5 mg per hour CXR showing increasing pulm edema ID: Possible HCAP, but infiltrates are most likely from pulm edema Oral thrush Bilateral infiltrate on chest x-ray most likely from pulmonary edema -these infiltrates present on CXR immediately after intubation, so VAP is unlikely. ALL cultures negative Monitor off all antibiotics On nystatin swish and spit every 6 hours 05/20 fiberoptic bronchoscopy with BAL no growth ID Dr. Godinez -Legionella, pneumococcal, influenza A and B antigens- results negative -Repeat urine and blood cultures no growth Endo Diabetes mellitus Insulin sliding scale with NovoLog, low dose regimen. Holding metformin 750 mg twice a day/home medication FEN Hypernatremia Free water 200 every 8. Renal Chronic kidney disease stage 3 - Creatinine stable - Monitor I's and O - Monitor Electrolytes and creatinine level GI prophylaxis Pepcid DVT- Teds SCDs heparin subcutaneous Dispo: Discussed with daughter, and [employer]IDENTIAL [employer] SAL[employer] at bedside. Critical Care: Level 3 Critically ill but stabilizing. Continue ICU care Rudolph Hernandez MD May 28, 2017 09:57
[2017-05-28] MEDS: BUMETANIDE INJ 1 MG/4 ML VIAL IV PUSH SCH (10:00)
[2017-05-28] MEDS ORDERED: BUMETANIDE INJ 1 MG/4 ML VIAL IV PUSH ONE (10:00)
[2017-05-28] MEDS: POTASSIUM CHLORIDE 25 MEQ EFFERVESCENT TAB PO SCH ×2 (10:00→19:50)
[2017-05-28] MEDS ORDERED: ALBUMIN HUMAN 25% 25 GM/100 ML BAGP IV ONE (10:00)
[2017-05-28] MEDS ORDERED: BUMETANIDE INJ 100 ML IV SCH (12:00)
[2017-05-28 15:39] LABS: BICARBONATE 34.3 MEQ/L (21.0-32.0); POTASSIUM 3.5 MEQ/L (3.5-5.1)
[2017-05-28] MEDS: cloNIDine HCL 0.3 MG TAB PO SCH (17:02)
[2017-05-28] MEDS: ATORVASTATIN 10 MG TAB PO SCH (19:47)
--- NOTE | 2017-05-28 20:25 | PD.CARD.PN ---
Subjective Subjective Remarks Extubated, no CP or SOB, c/o cough Objective Medications Current Medications Medications (Trade) Dose Ordered Sig/Renaldo Route Start Time Stop Time Status Last Admin (NS Flush) 2 ml UNSCH PRN IV FLUSH 05/17/17 00:30 (NS Flush) 2 ml BID IV FLUSH 05/17/17 09:00 05/28/17 19:51 (Narcan Inj) 0.4 mg UNSCH PRN IV 05/17/17 00:30 Miscellaneous Information Patient in critical care unit? Ass... [id number] .XX 05/17/17 02:45 (Norvasc) 5 mg BID PO 05/17/17 09:00 Hold 05/17/17 07:46 (Buspar) 30 mg BID PO 05/17/17 09:00 05/28/17 19:51 (Cardizem Cd) 240 mg DAILY PO 05/17/17 09:00 Hold 05/17/17 07:48 (Glucophage) 750 mg BIDPC PO 05/17/17 09:00 Hold 05/17/17 16:32 (Cozaar) 100 mg DAILY PO 05/17/17 09:00 Hold 05/17/17 07:47 (Hydrodiuril) 12.5 mg DAILY PO 05/17/17 09:00 Hold 05/17/17 07:48 (Pill Splitter) 1 ea UNSCH PRN OTHER 05/17/17 05:30 (Nitrostat Sl) 0.4 mg Q5M PRN SL 05/17/17 09:15 05/17/17 09:28 (Tessalon) 100 mg TID PRN PO 05/17/17 09:15 05/28/17 04:20 (Lipitor) 80 mg HS PO 05/17/17 21:00 05/28/17 19:47 (Peridex 0.12% Liq) 15 ml BID@08,20 MT 05/18/17 20:00 05/28/17 19:50 (Prinivil) 10 mg Q24H PO 05/18/17 19:15 Hold 05/24/17 21:27 (Tylenol) 650 mg Q6H PRN PO 05/20/17 22:00 05/24/17 04:18 (D50w (Vial) Inj) 50 ml UNSCH PRN IV 05/22/17 13:15 (Glucagon Inj) 1 mg UNSCH PRN OTHER 05/22/17 13:15 Nystatin 5 ml 5 ml QID SWISH-SWAL 05/22/17 21:00 05/28/17 19:49 Potassium Chloride 100 ml @ 50 mls/hr Q2H PRN IV 05/23/17 07:30 (KCl 20 Meq Premix Inj) 100 ml @ 50 mls/hr Q2H PRN IV 05/23/17 07:30 Potassium Bicarb/ Potassium Chloride 50 meq 50 meq UNSCH PRN PO 05/23/17 07:30 Potassium Chloride 100 ml @ 25 mls/hr UNSCH PRN IV 05/23/17 07:30 Potassium Chloride 100 ml @ 50 mls/hr Q2H PRN IV 05/23/17 07:30 (Magnesium Sulfate Inj/NS Inj) 100 ml @ 50 mls/hr UNSCH PRN IV 05/23/17 07:30 Magnesium Oxide 800 mg 800 mg UNSCH PRN PO 05/23/17 07:30 (Magnesium Sulfate Inj/NS Inj) 100 ml @ 50 mls/hr UNSCH PRN IV 05/23/17 07:30 Potassium Phosphate 2000 mg 2,000 mg Q4H PRN PO 05/23/17 07:30 (Sodium Phosphate Inj/NS 250 ml Inj) 250 ml @ 42 mls/hr UNSCH PRN IV 05/23/17 07:30 05/23/17 14:50 Potassium Phosphate 2000 mg 2,000 mg UNSCH PRN PO/TUBE 05/23/17 07:30 (Potassium Phosphate Inj/NS 250 ml Inj) 260 ml @ 42 mls/hr UNSCH PRN IV 05/23/17 07:30 (Tears Naturale Opth Soln) 1 drop Q8HR EACH EYE 05/24/17 14:00 05/28/17 20:00 (NovoLOG SUPPLEMENTAL SCALE) 1 Q6HR SQ 05/24/17 12:00 05/28/17 06:10 (Pepcid Inj) 10 mg Q12HR IV PUSH 05/24/17 09:30 05/28/17 19:48 (Apresoline Inj) 10 mg Q1HR PRN IV PUSH 05/24/17 11:30 05/27/17 12:25 (Nitroglycerin 2% Oint) 2 inch Q6HR PRN TOPICAL 05/24/17 11:30 05/25/17 09:01 (Heparin Inj) 5,000 units Q12HR SQ 05/24/17 21:00 05/28/17 19:50 (Brilinta) 90 mg BID PO 05/24/17 21:00 05/28/17 19:58 (Ecotrin Ec) 81 mg DAILY PO 05/25/17 09:00 05/28/17 08:52 (Bumex Inj) 1 mg BID@18 IV PUSH 05/25/17 18:00 Hold 05/28/17 10:00 (Ativan) 0.5 mg BID PO 05/25/17 09:30 05/28/17 19:51 (Robitussin Liq) 200 mg Q6H PRN PO 05/27/17 00:45 05/28/17 00:47 (Zofran Inj) 4 mg Q6H PRN IV PUSH 05/27/17 04:45 05/27/17 08:23 (Dulcolax Supp) 10 mg DAILY PRN RECTAL 05/27/17 07:00 (Coreg) 12.5 mg BID PO 05/27/17 09:00 05/28/17 19:51 (Apresoline) 50 mg Q8H PO 05/27/17 13:00 05/28/17 19:49 (Ambien) 5 mg HS PRN PO 05/27/17 21:30 05/27/17 21:32 Clonidine 0.3 mg 0.3 mg Q8H PO 05/28/17 17:00 05/28/17 17:02 (Bumex Inj) 100 ml @ 2 mls/hr CONTINUOUS IV 05/28/17 12:00 05/28/17 12:29 (K-Lyte Cl Eff) 25 meq Q12HR PO 05/28/17 10:00 05/28/17 19:50 Vital Signs / I&O Vital Signs Date Time Temp Pulse Resp B/P Pulse Ox O2 Delivery O2 Flow Rate FiO2 05/28/17 18:00 74 05/28/17 16:00 74 05/28/17 16:00 98.1 73 24 182/72 98 05/28/17 14:00 74 05/28/17 12:00 98.1 77 24 145/62 98 05/28/17 12:00 74 05/28/17 10:00 74 05/28/17 10:00 74 05/28/17 09:38 90 Nasal Cannula 6.00 05/28/17 08:01 97.8 73 24 162/69 05/28/17 08:00 74 05/28/17 06:30 75 25 140/63 98 05/28/17 06:01 75 31 139/62 96 05/28/17 06:00 76 27 97 05/28/17 06:00 76 05/28/17 05:30 71 27 155/66 100 05/28/17 05:00 74 23 147/66 98 05/28/17 04:30 68 28 157/68 95 05/28/17 04:00 66 27 148/64 89 05/28/17 04:00 66 05/28/17 03:30 65 27 139/63 92 05/28/17 03:00 63 25 128/60 98 05/28/17 02:30 62 24 126/62 98 05/28/17 02:00 60 05/28/17 02:00 60 25 136/63 98 05/28/17 01:31 68 26 121/56 94 05/28/17 01:00 71 33 131/77 93 05/28/17 00:30 64 25 129/78 98 05/28/17 00:00 66 05/28/17 00:00 98.5 66 28 128/59 97 05/27/17 23:00 62 24 137/63 100 05/27/17 22:31 62 25 127/58 100 05/27/17 22:01 64 27 148/64 100 05/27/17 22:00 65 05/27/17 22:00 65 27 99 05/27/17 21:30 68 29 152/69 98 05/27/17 21:01 68 31 146/67 98 05/27/17 21:00 69 31 97 05/27/17 20:31 64 27 175/73 99 05/27/17 20:30 98 Partial Rebreather 12.00 I/O 05/27/17 05/27/17 05/27/17 05/28/17 05/28/17 05/28/17 06:59 14:59 22:59 06:59 14:59 22:59 Intake Total 193 ml 221 ml 530 ml Output Total 575 ml 1675 ml 376 ml 345 ml 1200 ml Balance -382 ml -1454 ml -376 ml -345 ml -670 ml Intake Oral 280 ml IV Total 193 ml 121 ml 150 ml Albumin 100 ml 100 ml Output Urine Total 575 ml 1675 ml 375 ml 345 ml 1200 ml Stool Total 1 ml # Bowel Movements 0 1 Physical Exam GENERAL: In NAD SKIN: Warm and dry. HEAD: Normocephalic. EYES: No scleral icterus. No injection or drainage. NECK: Supple, trachea midline. No JVD or lymphadenopathy. CARDIOVASCULAR: Regular rate and rhythm without murmurs, gallops, or rubs. RESPIRATORY: Breath sounds equal bilaterally. No accessory muscle use. GASTROINTESTINAL: Abdomen soft, non-tender, nondistended. MUSCULOSKELETAL: No cyanosis, or edema. Groin stable Laboratory Laboratory Tests Test 05/28/17 05/28/17 05:01 13:58 White Blood Count 11.4 TH/MM3 Red Blood Count 2.96 MIL/MM3 Hemoglobin 8.4 GM/DL Hematocrit 25.0 % Mean Corpuscular Volume 84.2 FL Mean Corpuscular Hemoglobin 28.3 PG Mean Corpuscular Hemoglobin 33.6 % Concent Red Cell Distribution Width 15.7 % Platelet Count 244 TH/MM3 Mean Platelet Volume 7.8 FL Neutrophils (%) (Auto) 83.5 % Lymphocytes (%) (Auto) 10.2 % Monocytes (%) (Auto) 4.8 % Eosinophils (%) (Auto) 1.2 % Basophils (%) (Auto) 0.3 % Neutrophils # (Auto) 9.5 TH/MM3 Lymphocytes # (Auto) 1.2 TH/MM3 Monocytes # (Auto) 0.5 TH/MM3 Eosinophils # (Auto) 0.1 TH/MM3 Basophils # (Auto) 0.0 TH/MM3 CBC Comment DIFF FINAL Differential Comment Sodium Level 140 MEQ/L 141 MEQ/L Potassium Level 3.7 MEQ/L 3.5 MEQ/L Chloride Level 102 MEQ/L 100 MEQ/L Carbon Dioxide Level 31.1 MEQ/L 34.3 MEQ/L Anion Gap 7 MEQ/L 7 MEQ/L Blood Urea Nitrogen 42 MG/DL 45 MG/DL Creatinine 1.17 MG/DL 1.19 MG/DL Estimat Glomerular Filtration 45 ML/MIN 44 ML/MIN Rate Random Glucose 138 MG/DL 141 MG/DL Calcium Level 8.7 MG/DL 8.9 MG/DL Magnesium Level 2.4 MG/DL Total Bilirubin 1.0 MG/DL Aspartate Amino Transf 28 U/L (AST/SGOT) Alanine Aminotransferase 32 U/L (ALT/SGPT) Alkaline Phosphatase 69 U/L Total Protein 7.0 GM/DL Albumin 3.1 GM/DL Imaging Last Impressions Chest X-Ray 05/28/17 0600 Signed Impressions: Service Date/Time: Sunday, May 28, 2017 04:28 - CONCLUSION: Increasing bilateral infiltrates mid and lower lungs, and interval development of consolidation in the left lower lung. Arik Cosby MD Chest CT 05/26/17 0000 Signed Impressions: Service Date/Time: Friday, May 26, 2017 09:31 - CONCLUSION: 1. Multiple patchy areas of consolidation of both lungs which could indicate pulmonary edema. 2. Small bilateral pleural effusions right greater than left. 3. Mediastinal adenopathy and questionable mild hilar adenopathy. 4. Mild cardiomegaly. Bandar Pruitt MD Assessment and Plan Problem List: (1) Acute CHF (congestive heart failure) (2) NSTEMI (non-ST elevated myocardial infarction) (3) CAD (coronary artery disease) (4) High degree atrioventricular block (5) Respiratory failure (6) PNA (pneumonia) (7) Ischemic cardiomyopathy Assessment and Plan Extubated, remains stable. No new cardiac issues. Remains stable p MV PCI, no recurrent bradycardia. Continue Brilinta and baby ASA to prevent stent thrombosis. Renal fx stable.. Continue carvedilol and lisinopril, BP control. Continue therapy for pneumonia, still c/o cough. Problem Qualifiers (1) PNA (pneumonia): Qualified Code: J18.9 - Pneumonia of left lung due to infectious organism, unspecified part of lung Mg Daly MD May 28, 2017 20:25
[2017-05-28 22:06] LABS: POTASSIUM 3.4 MEQ/L (3.5-5.1)
[2017-05-28] MEDS: ZOLPIDEM TARTRATE 5 MG TAB PO PRN (22:20)
[2017-05-29] VITALS (14 sets, daily range): BP systolic 113–157; BP diastolic 55–68; PULSE 61–80; RESP 21–30; TEMP 98–100.6; O2SAT 91–98
[2017-05-29] MEDS: INSULIN ASPART SUPPLEMENTAL SCALE SQ SCH ×5 (00:24→23:46)
[2017-05-29] MEDS: cloNIDine HCL 0.3 MG TAB PO SCH ×3 (00:25→16:53)
[2017-05-29] MEDS: ACETAMINOPHEN 325 MG TAB PO PRN (01:03)
[2017-05-29] MEDS: RESP: ALBUTEROL 2.5 MG/IPRATROPIUM 0.5 MG NEB (SCH) NEB ×4 (04:07→21:08)
[2017-05-29 04:18] LABS: AUTOMATED NEUTROPHIL # 9.8 TH/MM3 (1.8-7.7); BASOPHIL % 0.3 % (0.0-2.0); EOSINOPHIL # 0.1 TH/MM3 (0-0.4); EOSINOPHIL % 1.2 % (0.0-4.0); HEMO FLAGS DIFF FINAL; LYMPH % 10.1 % (9.0-44.0); LYMPHOCYTE # 1.2 TH/MM3 (1.0-4.8); MEAN CELL VOLUME 84.5 FL (80.0-100.0); MEAN CORPUSCULAR HEMOGLOBIN 27.4 PG (27.0-34.0); MEAN CORPUSCULAR HGB CONC 32.4 % (32.0-36.0); MONO % 5.7 % (0.0-8.0); NEUT % 82.7 % (16.0-70.0); PLATELET COUNT 290 TH/MM3 (150-450); RED BLOOD COUNT 2.96 MIL/MM3 (4.00-5.30); RED CELL DISTRIBUTION WIDTH 15.6 % (11.6-17.2); WHITE BLOOD COUNT 11.8 TH/MM3 (4.0-11.0)
[2017-05-29 04:37] LABS: BICARBONATE 35.7 MEQ/L (21.0-32.0); POTASSIUM 3.6 MEQ/L (3.5-5.1)
--- NOTE | 2017-05-29 05:07 | RADRPT ---
EXAM DATE/TIME: 05/29/2017 03:31 [facility] COMPARISON: CHEST SINGLE AP, May 28, 2017, 4:28. INDICATIONS : Short of breath. MEDICAL HISTORY : Myocardial infarction. Hypertension Diabetes mellitus type II. SURGICAL HISTORY : None. ENCOUNTER: Subsequent ACUITY: 2 weeks PAIN SCORE: 0/10 LOCATION: Bilateral chest FINDINGS: Persistent patchy areas of consolidative infiltrate sparing the apices, similar in severity on the le ft side and slightly greater on the right side when compared to yesterday's exam. Heart is normal si ze. CONCLUSION: Increasing patchy areas of infiltrate on the right side and stable infiltrates on the left. Arik Cosby MD on May 29, 2017 at 5:04 Board Certified Radiologist. This report was verified electronically.
[2017-05-29] MEDS: hydrALAZINE HCL 50 MG TAB PO SCH ×3 (05:31→20:52)
[2017-05-29] MEDS: ARTIFICIAL TEARS OPTH SOLN 15 ML BTL EACH EYE SCH ×3 (05:31→21:08)
--- NOTE | 2017-05-29 07:20 | HHI.CCPN ---
Subjective Remarks/Hospital Course 81-year-old very pleasant female with a history of HTN, atrial fibrillation, DM , IN, and CKD stage 3 presented to the ED with complaints of a cough, shortness of breath and chest tightness for the last week. She states she has had a productive cough with white sputum production with increasing shortness of breath. She was admitted to ICU and while in the unit she became significantly bradycardic due to complete heart block, also in respiratory distress and severe hypoxemia. She was emergently intubated and taken to cardiac catheterization lab for retrograde heart catheterization with left ventriculography and selective coronary angiography, angioplasty and stenting of the distal left anterior descending artery and mid left anterior descending artery, and angioplasty and stenting of the proximal/ostial right coronary artery. Also transvenous pacemaker placement. Subjective: 05/18: The patient underwent cardiac stenting yesterday, maintain some intubated, with transvenous pacemaker. Dopamine has been weaned off this afternoon. Plan for CPAP trials with planned extubation in the a.m.. Heparin has been discontinued this afternoon with plans for removal of venous sheath. The patient remains hemodynamically stable. 05/19: Femoral sheath with transvenous pacemaker removed last evening. Hemodynamically stable. Carvedilol and lisinopril initiated this a.m.. Patient sedation change to Precedex in anticipation for possible extubation. The patient has tolerated CPAP trials greater than 12 hours, however failed SBT this evening. Patient's hemoglobin was noted to be 7.7 this a.m. patient received 1 unit of packed red blood cells CBC post transfusion pending. 05/20: Afebrile. Overnight the patient was noted to have thick secretions, and was lavaged 4. The patient had increasing requirements for sedation in oxygenation, CPAP trials were discontinued at 10 PM secondary to thick copious secretions. Plan for fiberoptic bronchoscopy with BAL today. Hemoglobin stable , patient remains hemodynamically stable off all pressors. 05/21: Patient febrile, copious thick secretions noted. ID following , expansion of antibiotic coverage. Initiation of tube feeds. Patient remains hemodynamically stable. 05/22: Tmax 99.9. No acute issues overnight the patient continues on Precedex and propofol infusions. She remains alert GCS 11 T communicating by writing, and responsive to yes and no questions. Patient continues to have bilateral lung consolidations, antibiotics expanded per ID. Cultures continue to be pending. Patient tolerating tube feeds will advance as tolerated. 05/23:TMax 100.9. Cultures are pending. C. difficile antigen ordered .The patient is awake and responsive on Precedex and propofol infusions. The patient tolerated CPAP trials of 8 hours yesterday. Chest x-ray pending. Tube feedings increased. Hemodynamically stable. 05/24: Tolerated PSV trial strep 7 hours yesterday. Currently afebrile. MAXIMUM TEMPERATURE 100.3. Tolerating tube feeds. Positive BM. 05/25: Episodes of hypoxia overnight. FiO2 50%. Chest x-ray shows bilateral pulmonary basilar infiltrates/edema. I will add 2 mg IV Bumex 1 now and 1 mg every 12. SBT as tolerated Subjective 05/26/17: Chest x-ray continues to show bilateral infiltrates FiO2 at 45%. Slight increase in creatinine with diuresis. A stat CT of the chest shows extensive bilateral infiltrates most likely secondary to pulmonary edema. I will give additional 2 mg IV Bumex 1 with IV albumin. Failed CPAP trial yesterday. 05/27/17: Extubated yesterday. Single episode of vomiting vital BiPAP. Currently on partial nonrebreather with saturation 98%. Chest x-ray shows interval improvement in bilateral infiltrates. Urine output more than 5 L with Bumex. Remains hypertensive. Increase Coreg to 12.5 twice a day, increase hydralazine to 50 every 8 hours 05/28/17: Overnight on pNRB for hypoxia, now placed on NC 6L, maintaining good O2 sat. CXR interval worsening bilateral infiltrates. Will give Bumex 2 mg IV x1 and 05mg /hr gtt for more aggressive diuresis. Check BMP q8h 05/29/17: Required partial nonrebreather overnight sats 99%. Chest x-ray with bilateral infiltrates right more than left despite negative fluid balance. Creatinine increased to 1.5 I will hold Bumex infusion. Check ABG today Objective Vital Signs Date Time Temp Pulse Resp B/P Pulse Ox O2 Delivery O2 Flow Rate FiO2 05/29/17 06:00 67 05/29/17 04:00 99.4 22 113/55 98 05/28/17 09:38 Nasal Cannula 6.00 05/26/17 23:30 45 Intake and Output 05/28/17 05/28/17 05/29/17 08:00 16:00 00:00 Intake Total 530 ml 116 ml Output Total 345 ml 1200 ml 1200 ml Balance -345 ml -670 ml -1084 ml Result Diagram: 05/29/17 0343 05/29/17 0343 Imaging Last Impressions Chest X-Ray 05/24/17 0600 Signed Impressions: Service Date/Time: May 03:17 - CONCLUSION: No significant change has occurred. Sterling Guevara MD Objective Remarks GENERAL: Well-nourished, well-developed patient, awake, on pNRB with SaO2 99% SKIN: Warm and dry. Well perfused HEAD: Normocephalic. EYES: Pupils are equally round and reactive to light and accommodation. No scleral icterus. No injection or drainage. NECK: Supple, trachea midline. No JVD or lymphadenopathy. CARDIOVASCULAR: RRR. S1, S2. No S4. Without murmur RESPIRATORY: Few coarse crackles appreciated at bases. Symmetrical excursion. No wheezing. GASTROINTESTINAL: Abdomen soft, protuberant, non-tender, hypoactive bowel sounds. Thrush lateral distal tongue MUSCULOSKELETAL: Trace nonpitting lower extremity edema bilaterally. BACK: Nontender without obvious deformity. NEURO EXAM: Alert oriented. normal speech. Moves all 4 extremity spontaneously to command. No focal deficits Urinary Catheter: Yes Assessment to: Continue A/P Assessment and Plan NEURO/Psych: Depression disorder Anxiety disorder Chronic benzodiazepine use Continue Ativan 0.5 mg po q12 (Home med) DCd Xanax on 05/25/17 Continue buspirone 30 mg twice a day anxiety Acetaminophen 650 mg by mouth every 6 hours when necessary fever/pain Respiratory: Acute hypercapnic hypoxic Respiratory failure Possible HCAP Pulmonary edema (Cardiogenic vs ARDS) Extubated 05/26. On pNRB. Cannot tolerate BiPAP Albuterol/Atrovent aerosols every 6 hours with albuterol aerosols every 2 hours when necessary breakthrough EzPAP, Acapella, IS s/p dexamethasone 4 mg IV every 6 hours times x [address] chest 05/26: Bilateral extensive infiltrates pulmonary edema Cardiogenic vs ARDS, doubt infection Observe off ABX CV: Coronary artery disease Pulmonary edema Dyslipidemia Hypertension High degree AV block-now resolved 05/17 Status post angioplasty and stents of the distal LAD and mid LAD, and angioplasty and stenting of the proximal/ostial RCA Echocardiogram revealed EF 60-65%. Asymmetric septal hypertrophy. Trace MR. Carvedilol to 12.5 mg by mouth twice a day for hypertension 05/26. Holding lisinopril 10 mg daily while diuresing Clonidine 0.3 mg q8 and hydralazine 50 mg ill grams 3 times a day Temporary Pacemaker is been removed 05/18 Aspirin 81 mg by mouth daily Ticagrelor 90 mg by mouth twice a day for stent Atorvastatin 80 mg by mouth daily for dyslipidemia. Holding fish oil/ cholecalciferol 1000/100 3 tablets twice a day DC Bumex gtt 0.5 mg per hour due to creat increasing (Home medications are losartan/hctz 300 mg/12.5 mg daily with additional hydrochlorothiazide 12.5 mg additional daily. Hypertension along with metoprolol 50 mg by mouth twice a day and clonidine 0.1 mg by mouth twice a day and Norvasc 5 mg twice a day and diltiazem 240 mg by mouth daily and hydralazine 10 mg 3 times a day) ID: Possible HCAP, but infiltrates are most likely from pulm edema Oral thrush Bilateral infiltrate on chest x-ray most likely from pulmonary edema (ARDS vs cardiogenic)-these infiltrates present on CXR immediately after intubation, so VAP is unlikely. ALL cultures negative, doubt infectious etiology Monitor off all antibiotics. ID Dr. Godinez On nystatin swish and spit every 6 hours 05/20 fiberoptic bronchoscopy with BAL no growth Legionella, pneumococcal, influenza A and B antigens- results negative Repeat urine and blood cultures no growth Endo Diabetes mellitus Insulin sliding scale with NovoLog, low dose regimen. Holding metformin 750 mg twice a day/home medication Renal Chronic kidney disease stage 3 - Creatinine increased to 1.5 today. UO >3.2L. DC Bumex gtt - Monitor I's and O - Monitor Electrolytes and creatinine level GI prophylaxis Pepcid DVT- Teds SCDs heparin subcutaneous Dispo: Discussed with daughter, and EDUCATION COUNSELOR at bedside. Critical Care: Level 3 Critically ill but stabilizing. Continue ICU care due to potential acut decompensation. Lung infiltrates persist Rudolph Hernandez MD May 29, 2017 07:20
[2017-05-29] MEDS: CHLORHEXIDINE 0.12% (ORAL KIT) 15 ML CUP MT SCH ×2 (08:00→20:00)
[2017-05-29] MEDS: TICAGRELOR 90 MG TAB PO SCH ×2 (09:00→20:52)
[2017-05-29] MEDS: CARVEDILOL 12.5 MG TAB PO SCH ×2 (09:00→20:52)
[2017-05-29] MEDS: HEPARIN SODIUM - SQ 10,000 UNITS/ML VIAL SQ SCH ×2 (09:00→20:51)
[2017-05-29] MEDS: LORazepam 0.5 MG TAB PO SCH ×2 (09:00→20:52)
[2017-05-29] MEDS: busPIRone HCL 10 MG TAB PO SCH ×2 (09:00→20:51)
[2017-05-29] MEDS: SODIUM CHLORIDE 0.9% FLUSH 10 ML FLUSH IV FLUSH SCH ×2 (09:00→20:16)
[2017-05-29] MEDS: NYSTATIN SUSP 500,000 U/5 ML CUP SWISH-SWAL SCH ×4 (09:00→20:50)
[2017-05-29] MEDS: FAMOTIDINE 20 MG TAB PO SCH ×2 (09:00→21:00)
[2017-05-29] MEDS: ASPIRIN EC 81 MG TABEC PO SCH (09:00)
[2017-05-29] MEDS: guaiFENesin SOLUTION 200 MG/10 ML CUP PO PRN ×2 (09:46→20:50)
[2017-05-29 11:21] LABS: BLOOD GAS BASE EXCESS 8.5 mmol/L (-2-2); BLOOD GAS HCO3 33 mmol/L (22-26); BLOOD GAS O2 HGB SATURATION 94 % (90-100); BLOOD GAS OXYGEN CONTENT 11.5 Vol % (12.0-20.0); BLOOD GAS PCO2 45 mmHg (38-42); BLOOD GAS PO2 88 mmHg (61-120); BLOOD GAS TOTAL HGB 8.6 G/DL (12.0-16.0); TEMP CORR TO 98.6
[2017-05-29 11:22] LABS: CRITICAL VALUE NO; DRAW SITE RT RADIAL; LITER FLOW 6 L/M; NUMBER OF ARTERIAL PUNCTURES 1; OXYGEN DEVICE NASAL CANNULA; STAT NO; ULNAR PULSE PRESENT
--- NOTE | 2017-05-29 13:41 | PD.CARD.PN ---
Subjective Subjective Remarks No CP or SOB, c/o cough Objective Medications Current Medications Medications (Trade) Dose Ordered Sig/Renaldo Route Start Time Stop Time Status Last Admin (NS Flush) 2 ml UNSCH PRN IV FLUSH 05/17/17 00:30 (NS Flush) 2 ml BID IV FLUSH 05/17/17 09:00 05/29/17 09:00 (Narcan Inj) 0.4 mg UNSCH PRN IV 05/17/17 00:30 Miscellaneous Information Patient in critical care unit? Ass... Q361D .XX 05/17/17 02:45 (Norvasc) 5 mg BID PO 05/17/17 09:00 Hold 05/17/17 07:46 (Buspar) 30 mg BID PO 05/17/17 09:00 05/29/17 09:00 (Cardizem Cd) 240 mg DAILY PO 05/17/17 09:00 Hold 05/17/17 07:48 (Glucophage) 750 mg BIDPC PO 05/17/17 09:00 Hold 05/17/17 16:32 (Cozaar) 100 mg DAILY PO 05/17/17 09:00 Hold 05/17/17 07:47 (Hydrodiuril) 12.5 mg DAILY PO 05/17/17 09:00 Hold 05/17/17 07:48 (Pill Splitter) 1 ea UNSCH PRN OTHER 05/17/17 05:30 (Nitrostat Sl) 0.4 mg Q5M PRN SL 05/17/17 09:15 05/17/17 09:28 (Tessalon) 100 mg TID PRN PO 05/17/17 09:15 05/28/17 04:20 (Lipitor) 80 mg HS PO 05/17/17 21:00 05/28/17 19:47 (Peridex 0.12% Liq) 15 ml BID@08,20 MT 05/18/17 20:00 05/29/17 08:00 (Prinivil) 10 mg Q24H PO 05/18/17 19:15 Hold 05/24/17 21:27 (Tylenol) 650 mg Q6H PRN PO 05/20/17 22:00 05/29/17 01:03 (D50w (Vial) Inj) 50 ml UNSCH PRN IV 05/22/17 13:15 (Glucagon Inj) 1 mg UNSCH PRN OTHER 05/22/17 13:15 Nystatin 5 ml 5 ml QID SWISH-SWAL 05/22/17 21:00 05/29/17 09:00 Potassium Chloride 100 ml @ 50 mls/hr Q2H PRN IV 05/23/17 07:30 (KCl 20 Meq Premix Inj) 100 ml @ 50 mls/hr Q2H PRN IV 05/23/17 07:30 Potassium Bicarb/ Potassium Chloride 50 meq 50 meq UNSCH PRN PO 05/23/17 07:30 Potassium Chloride 100 ml @ 25 mls/hr UNSCH PRN IV 05/23/17 07:30 Potassium Chloride 100 ml @ 50 mls/hr Q2H PRN IV 05/23/17 07:30 (Magnesium Sulfate Inj/NS Inj) 100 ml @ 50 mls/hr UNSCH PRN IV 05/23/17 07:30 Magnesium Oxide 800 mg 800 mg UNSCH PRN PO 05/23/17 07:30 (Magnesium Sulfate Inj/NS Inj) 100 ml @ 50 mls/hr UNSCH PRN IV 05/23/17 07:30 Potassium Phosphate 2000 mg 2,000 mg Q4H PRN PO 05/23/17 07:30 (Sodium Phosphate Inj/NS 250 ml Inj) 250 ml @ 42 mls/hr UNSCH PRN IV 05/23/17 07:30 05/23/17 14:50 Potassium Phosphate 2000 mg 2,000 mg UNSCH PRN PO/TUBE 05/23/17 07:30 (Potassium Phosphate Inj/NS 250 ml Inj) 260 ml @ 42 mls/hr UNSCH PRN IV 05/23/17 07:30 (Tears Naturale Opth Soln) 1 drop Q8HR EACH EYE 05/24/17 14:00 05/29/17 05:31 (NovoLOG SUPPLEMENTAL SCALE) 1 Q6HR SQ 05/24/17 12:00 05/29/17 12:00 (Apresoline Inj) 10 mg Q1HR PRN IV PUSH 05/24/17 11:30 05/27/17 12:25 (Nitroglycerin 2% Oint) 2 inch Q6HR PRN TOPICAL 05/24/17 11:30 05/25/17 09:01 (Heparin Inj) 5,000 units Q12HR SQ 05/24/17 21:00 05/29/17 09:00 (Brilinta) 90 mg BID PO 05/24/17 21:00 05/29/17 09:00 (Ecotrin Ec) 81 mg DAILY PO 05/25/17 09:00 05/29/17 09:00 (Bumex Inj) 1 mg BID@,18 IV PUSH 05/25/17 18:00 Hold 05/28/17 10:00 (Ativan) 0.5 mg BID PO 05/25/17 09:30 05/29/17 09:00 (Robitussin Liq) 200 mg Q6H PRN PO 05/27/17 00:45 05/29/17 09:46 (Zofran Inj) 4 mg Q6H PRN IV PUSH 05/27/17 04:45 05/27/17 08:23 (Dulcolax Supp) 10 mg DAILY PRN RECTAL 05/27/17 07:00 (Coreg) 12.5 mg BID PO 05/27/17 09:00 05/29/17 09:00 (Apresoline) 50 mg Q8H PO 05/27/17 13:00 05/29/17 05:31 (Ambien) 5 mg HS PRN PO 05/27/17 21:30 05/28/17 22:20 (Catapres) 0.3 mg Q8H PO 05/28/17 17:00 05/29/17 09:00 (Pepcid) 10 mg BID PO 05/29/17 09:00 05/29/17 09:00 Vital Signs / I&O Vital Signs Date Time Temp Pulse Resp B/P Pulse Ox O2 Delivery O2 Flow Rate FiO2 05/29/17 10:00 74 05/29/17 08:00 99.0 66 21 140/63 97 05/29/17 08:00 69 05/29/17 06:00 67 05/29/17 04:00 99.4 65 22 113/55 98 05/29/17 04:00 65 05/29/17 02:00 68 05/29/17 00:00 80 05/29/17 00:00 100.6 80 26 157/68 98 05/28/17 22:00 82 05/28/17 20:00 99.3 79 24 163/66 91 05/28/17 20:00 79 05/28/17 18:00 74 05/28/17 16:00 74 05/28/17 16:00 98.1 73 24 182/72 98 05/28/17 14:00 74 I/O 05/28/17 05/28/17 05/28/17 05/29/17 05/29/17 05/29/17 07:00 15:00 23:00 07:00 15:00 23:00 Intake Total 530 ml 116 ml 117 ml Output Total 345 ml 1200 ml 1200 ml 850 ml Balance -345 ml -670 ml -1084 ml -733 ml Intake Oral 280 ml 100 ml 100 ml IV Total 150 ml 16 ml 17 ml Albumin 100 ml Output Urine Total 345 ml 1200 ml 1200 ml 850 ml # Bowel Movements 0 0 Physical Exam GENERAL: In NAD SKIN: Warm and dry. HEAD: Normocephalic. EYES: No scleral icterus. No injection or drainage. NECK: Supple, trachea midline. No JVD or lymphadenopathy. CARDIOVASCULAR: Regular rate and rhythm without murmurs, gallops, or rubs. RESPIRATORY: Breath sounds equal bilaterally. No accessory muscle use. GASTROINTESTINAL: Abdomen soft, non-tender, nondistended. MUSCULOSKELETAL: No cyanosis, or edema. Groin stable Laboratory Laboratory Tests Test 05/28/17 05/28/17 05/29/17 05/29/17 13:58 20:49 03:43 11:15 Sodium Level 141 MEQ/L 138 MEQ/L 139 MEQ/L Potassium Level 3.5 MEQ/L 3.4 MEQ/L 3.6 MEQ/L Chloride Level 100 MEQ/L 96 MEQ/L 96 MEQ/L Carbon Dioxide Level 34.3 MEQ/L 34.0 MEQ/L 35.7 MEQ/L Anion Gap 7 MEQ/L 8 MEQ/L 7 MEQ/L Blood Urea Nitrogen 45 MG/DL 45 MG/DL 47 MG/DL Creatinine 1.19 MG/DL 1.23 MG/DL 1.48 MG/DL Estimat Glomerular Filtration 44 ML/MIN 42 ML/MIN 34 ML/MIN Rate Random Glucose 141 MG/DL 167 MG/DL 150 MG/DL Calcium Level 8.9 MG/DL 8.7 MG/DL 9.1 MG/DL White Blood Count 11.8 TH/MM3 Red Blood Count 2.96 MIL/MM3 Hemoglobin 8.1 GM/DL Hematocrit 25.0 % Mean Corpuscular Volume 84.5 FL Mean Corpuscular Hemoglobin 27.4 PG Mean Corpuscular Hemoglobin 32.4 % Concent Red Cell Distribution Width 15.6 % Platelet Count 290 TH/MM3 Mean Platelet Volume 7.3 FL Neutrophils (%) (Auto) 82.7 % Lymphocytes (%) (Auto) 10.1 % Monocytes (%) (Auto) 5.7 % Eosinophils (%) (Auto) 1.2 % Basophils (%) (Auto) 0.3 % Neutrophils # (Auto) 9.8 TH/MM3 Lymphocytes # (Auto) 1.2 TH/MM3 Monocytes # (Auto) 0.7 TH/MM3 Eosinophils # (Auto) 0.1 TH/MM3 Basophils # (Auto) 0.0 TH/MM3 CBC Comment DIFF FINAL Differential Comment Blood Gas Puncture Site RT RADIAL Blood Gas Patient Temperature 98.6 Blood Gas HCO3 33 mmol/L Blood Gas Base Excess 8.5 mmol/L Blood Gas Oxygen Saturation 94 % Arterial Blood pH 7.48 Arterial Blood Partial 45 mmHg Pressure CO2 Arterial Blood Partial 88 mmHg Pressure O2 Arterial Blood Oxygen Content 11.5 Vol % Arterial Blood 2.0 % Carboxyhemoglobin Arterial Blood Methemoglobin 1.0 % Blood Gas Hemoglobin 8.6 G/DL Oxygen Delivery Device NASAL CANNULA Blood Gas Liter Flow 6 L/M Imaging Last Impressions Chest X-Ray 05/29/17 0600 Signed Impressions: Service Date/Time: Monday, May 29, 2017 03:31 - CONCLUSION: Increasing patchy areas of infiltrate on the right side and stable infiltrates on the left. Arik Cosby MD Chest CT 05/26/17 0000 Signed Impressions: Service Date/Time: Friday, May 26, 2017 09:31 - CONCLUSION: 1. Multiple patchy areas of consolidation of both lungs which could indicate pulmonary edema. 2. Small bilateral pleural effusions right greater than left. 3. Mediastinal adenopathy and questionable mild hilar adenopathy. 4. Mild cardiomegaly. Bandar Pruitt MD Assessment and Plan Problem List: (1) Acute CHF (congestive heart failure) (2) NSTEMI (non-ST elevated myocardial infarction) (3) CAD (coronary artery disease) (4) High degree atrioventricular block (5) Respiratory failure (6) PNA (pneumonia) (7) Ischemic cardiomyopathy Assessment and Plan No new cardiac issues. Still c/o cough. No recurrent bradycardia. Continue Brilinta and baby ASA to prevent stent thrombosis. Renal fx stable. Continue carvedilol and lisinopril for BP control. Continue therapy for pneumonia. Increase activity, PT. D/w pt and daughter. Problem Qualifiers (1) PNA (pneumonia): Qualified Code: J18.9 - Pneumonia of left lung due to infectious organism, unspecified part of lung Mg Daly MD May 29, 2017 13:41
[2017-05-29 14:48] LABS: BICARBONATE 34.5 MEQ/L (21.0-32.0); POTASSIUM 3.3 MEQ/L (3.5-5.1)
[2017-05-29] MEDS: ATORVASTATIN 10 MG TAB PO SCH (20:52)
[2017-05-29 20:54] LABS: BICARBONATE 36.7 MEQ/L (21.0-32.0); POTASSIUM 3.6 MEQ/L (3.5-5.1)
[2017-05-29] MEDS: BENZONATATE 100 MG CAP PO PRN (21:08)
[2017-05-29] MEDS: ZOLPIDEM TARTRATE 5 MG TAB PO PRN (22:26)
[2017-05-30] VITALS (14 sets, daily range): BP systolic 128–170; BP diastolic 61–90; PULSE 57–73; RESP 18–27; TEMP 98–99; O2SAT 90–100
[2017-05-30] MEDS: cloNIDine HCL 0.3 MG TAB PO SCH ×3 (01:00→17:33)
[2017-05-30] MEDS: RESP: RACEPINEPHRINE 2.25% 0.5 ML NEB NEB PRN ×2 (01:32→19:53)
[2017-05-30 03:03] LABS: AUTOMATED NEUTROPHIL # 9.7 TH/MM3 (1.8-7.7); BASOPHIL # 0.1 TH/MM3 (0-0.2); BASOPHIL % 0.7 % (0.0-2.0); EOSINOPHIL # 0.3 TH/MM3 (0-0.4); EOSINOPHIL % 2.3 % (0.0-4.0); HEMO FLAGS DIFF FINAL; LYMPH % 11.3 % (9.0-44.0); LYMPHOCYTE # 1.4 TH/MM3 (1.0-4.8); MEAN CELL VOLUME 83.9 FL (80.0-100.0); MEAN CORPUSCULAR HEMOGLOBIN 27.6 PG (27.0-34.0); MEAN CORPUSCULAR HGB CONC 32.9 % (32.0-36.0); MONO % 6.7 % (0.0-8.0); PLATELET COUNT 311 TH/MM3 (150-450); RED BLOOD COUNT 2.98 MIL/MM3 (4.00-5.30); RED CELL DISTRIBUTION WIDTH 15.7 % (11.6-17.2); WHITE BLOOD COUNT 12.2 TH/MM3 (4.0-11.0)
[2017-05-30] MEDS: RESP: ALBUTEROL 2.5 MG/IPRATROPIUM 0.5 MG NEB (SCH) NEB ×4 (03:15→19:53)
[2017-05-30 03:29] LABS: ANION GAP 9 MEQ/L (5-15); AST (GOT) 23 U/L (15-37); BICARBONATE 32.9 MEQ/L (21.0-32.0); BLOOD UREA NITROGEN 54 MG/DL (7-18); CHLORIDE 95 MEQ/L (98-107); GLOMERULAR FILTRATION RATE 35 ML/MIN (>89); POTASSIUM 3.5 MEQ/L (3.5-5.1); SODIUM (NA) 137 MEQ/L (136-145)
[2017-05-30 03:34] LABS: ALKALINE PHOSPHATASE 69 U/L (45-117); ALT (GPT) 27 U/L (10-53)
[2017-05-30] MEDS: INSULIN ASPART SUPPLEMENTAL SCALE SQ SCH ×3 (04:59→17:33)
[2017-05-30] MEDS: hydrALAZINE HCL 50 MG TAB PO SCH ×3 (04:59→19:42)
[2017-05-30] MEDS: ARTIFICIAL TEARS OPTH SOLN 15 ML BTL EACH EYE SCH ×3 (04:59→19:43)
--- NOTE | 2017-05-30 05:38 | RADRPT ---
EXAM DATE/TIME: 05/30/2017 04:34 [facility] COMPARISON: CHEST SINGLE AP, May 29, 2017, 3:31. INDICATIONS : Shortness of breath. MEDICAL HISTORY : Myocardial infarction. Hypertension Diabetes mellitus type II SURGICAL HISTORY : Hysterectomy. Cholecystectomy ENCOUNTER: Subsequent ACUITY: 2 weeks PAIN SCORE: Non-responsive. LOCATION: Bilateral chest FINDINGS: Mild patient rotation towards the left. Persistent patchy mixed interstitial and alveolar infiltrate s in the mid and lower lungs bilaterally and consolidation the left hemidiaphragm similar in appearan ce and severity to prior. The heart is normal in size. No evidence of pneumothorax. CONCLUSION: Persistent and stable bilateral mid and lower lung infiltrates. Arik Cosby MD on May 30, 2017 at 5:36 Board Certified Radiologist. This report was verified electronically.
[2017-05-30] MEDS: hydrALAZINE HCL 20 MG/ML VIAL IV PUSH PRN (06:38)
[2017-05-30] MEDS: CHLORHEXIDINE 0.12% (ORAL KIT) 15 ML CUP MT SCH ×2 (08:00→19:26)
[2017-05-30] MEDS: busPIRone HCL 10 MG TAB PO SCH ×2 (09:33→19:42)
[2017-05-30] MEDS: FAMOTIDINE 20 MG TAB PO SCH ×2 (09:33→19:43)
[2017-05-30] MEDS: HEPARIN SODIUM - SQ 10,000 UNITS/ML VIAL SQ SCH ×2 (09:34→19:41)
[2017-05-30] MEDS: LORazepam 0.5 MG TAB PO SCH ×2 (09:34→19:42)
[2017-05-30] MEDS: TICAGRELOR 90 MG TAB PO SCH ×2 (09:34→19:42)
[2017-05-30] MEDS: ACETAMINOPHEN 325 MG TAB PO PRN (09:34)
[2017-05-30] MEDS: ASPIRIN EC 81 MG TABEC PO SCH (09:34)
[2017-05-30] MEDS: CARVEDILOL 12.5 MG TAB PO SCH ×2 (09:34→19:42)
[2017-05-30] MEDS: NYSTATIN SUSP 500,000 U/5 ML CUP SWISH-SWAL SCH ×4 (09:34→19:41)
[2017-05-30] MEDS: SODIUM CHLORIDE 0.9% FLUSH 10 ML FLUSH IV FLUSH SCH ×2 (09:35→19:27)
--- NOTE | 2017-05-30 10:12 | HHI.IDPN ---
Subjective Subjective Remarks Patient is a 81-year-old female, presented to the hospital complaining of cough , shortness of breath and chest tightness for one week. She was bringing up some whitish phlegm. She had worsening shortness of breath and presented to the hospital for further evaluation and treatment. She has had chills the night of admission. No nausea or vomiting or any urinary complaints. On presentation she ruled in for an SC. She had high grade AV block, and underwent emergent cardiac catheterization. She had some interventions done, and she also had placement of a temporary pacemaker. He ended up getting intubated. She's been intubated since. She had the fever initially, and that has improved, however since yesterday she started having fevers again. She apparently was having a lot of secretions, and required bronchoscopy yesterday. She is febrile today. She is awake and responding. She is on the vent. Infectious disease consultation has been requested to evaluate the patient. Notes reviewed Afebrile Very weak On 5L NC C/O sores in her mouth - better compared to yesterday Finished Abx this weekend Antibiotics None Lines PIV Past Medical History HTN DM SC CKD stage 3 Past Surgical History Heart stents Cholecystectomy Hysterectomy Allergies: Coded Allergies: simvastatin (Unverified Allergy, Severe, ARMS SWELL, 05/29/17) Objective . Vital Signs Date Time Temp Pulse Resp B/P Pulse Ox O2 Delivery O2 Flow Rate FiO2 05/30/17 08:00 98.5 64 24 159/67 91 05/30/17 08:00 64 05/30/17 07:18 95 Nasal Cannula 5.00 05/30/17 06:00 65 05/30/17 04:00 61 05/30/17 04:00 98.3 61 27 150/67 95 05/30/17 02:00 67 05/30/17 00:00 63 05/30/17 00:00 99.0 66 18 134/62 90 05/29/17 22:00 66 05/29/17 21:08 93 Nasal Cannula 5.00 05/29/17 20:00 63 05/29/17 20:00 98.0 63 30 125/56 92 05/29/17 18:00 68 05/29/17 16:00 98.7 62 24 114/56 91 05/29/17 16:00 71 8/15/17 15:32 94 Nasal Cannula 5.00 05/29/17 14:00 67 05/29/17 12:00 98.9 64 26 145/60 92 05/29/17 12:00 61 05/29/17 05/29/17 05/30/17 15:00 23:00 07:00 Intake Total 483 ml 450 ml 650 ml Output Total 550 ml 500 ml 600 ml Balance -67 ml -50 ml 50 ml Intake Oral 480 ml 450 ml 650 ml IV Total 3 ml 0 ml 0 ml Output Urine Total 550 ml 500 ml 600 ml # Bowel Movements 0 0 0 . Laboratory Tests Test 05/29/17 05/30/17 03:43 02:37 White Blood Count 11.8 TH/MM3 12.2 TH/MM3 Red Blood Count 2.96 MIL/MM3 2.98 MIL/MM3 Hemoglobin 8.1 GM/DL 8.2 GM/DL Hematocrit 25.0 % 25.0 % Mean Corpuscular Volume 84.5 FL 83.9 FL Mean Corpuscular Hemoglobin 27.4 PG 27.6 PG Mean Corpuscular Hemoglobin 32.4 % 32.9 % Concent Red Cell Distribution Width 15.6 % 15.7 % Platelet Count 290 TH/MM3 311 TH/MM3 Mean Platelet Volume 7.3 FL 7.3 FL Neutrophils (%) (Auto) 82.7 % 79.0 % Lymphocytes (%) (Auto) 10.1 % 11.3 % Monocytes (%) (Auto) 5.7 % 6.7 % Eosinophils (%) (Auto) 1.2 % 2.3 % Basophils (%) (Auto) 0.3 % 0.7 % Neutrophils # (Auto) 9.8 TH/MM3 9.7 TH/MM3 Lymphocytes # (Auto) 1.2 TH/MM3 1.4 TH/MM3 Monocytes # (Auto) 0.7 TH/MM3 0.8 TH/MM3 Eosinophils # (Auto) 0.1 TH/MM3 0.3 TH/MM3 Basophils # (Auto) 0.0 TH/MM3 0.1 TH/MM3 CBC Comment DIFF FINAL DIFF FINAL Differential Comment Laboratory Tests Test 05/28/17 05/28/17 05/29/17 05/29/17 13:58 20:49 03:43 13:01 Sodium Level 141 MEQ/L 138 MEQ/L 139 MEQ/L 135 MEQ/L Potassium Level 3.5 MEQ/L 3.4 MEQ/L 3.6 MEQ/L 3.3 MEQ/L Chloride Level 100 MEQ/L 96 MEQ/L 96 MEQ/L 95 MEQ/L Carbon Dioxide Level 34.3 MEQ/L 34.0 MEQ/L 35.7 MEQ/L 34.5 MEQ/L Anion Gap 7 MEQ/L 8 MEQ/L 7 MEQ/L 6 MEQ/L Blood Urea Nitrogen 45 MG/DL 45 MG/DL 47 MG/DL 57 MG/DL Creatinine 1.19 MG/DL 1.23 MG/DL 1.48 MG/DL 1.61 MG/DL Estimat Glomerular Filtration 44 ML/MIN 42 ML/MIN 34 ML/MIN 31 ML/MIN Rate Random Glucose 141 MG/DL 167 MG/DL 150 MG/DL 138 MG/DL Calcium Level 8.9 MG/DL 8.7 MG/DL 9.1 MG/DL 8.7 MG/DL Test 05/29/17 05/30/17 20:15 02:37 Sodium Level 134 MEQ/L 137 MEQ/L Potassium Level 3.6 MEQ/L 3.5 MEQ/L Chloride Level 93 MEQ/L 95 MEQ/L Carbon Dioxide Level 36.7 MEQ/L 32.9 MEQ/L Anion Gap 4 MEQ/L 9 MEQ/L Blood Urea Nitrogen 56 MG/DL 54 MG/DL Creatinine 1.55 MG/DL 1.45 MG/DL Estimat Glomerular Filtration 32 ML/MIN 35 ML/MIN Rate Random Glucose 142 MG/DL 134 MG/DL Calcium Level 8.5 MG/DL 9.4 MG/DL Total Bilirubin 1.0 MG/DL Aspartate Amino Transf 23 U/L (AST/SGOT) Alanine Aminotransferase 27 U/L (ALT/SGPT) Alkaline Phosphatase 69 U/L Total Protein 7.2 GM/DL Albumin 3.1 GM/DL Imaging Chest X-Ray 05/28/17599 Signed Impressions: Service Date/Time: Sunday, May 28, 2017 04:28 - CONCLUSION: Increasing bilateral infiltrates mid and lower lungs, and interval development of consolidation in the left lower lung. Arik Cosby MD Chest X-Ray 05/27/17599 Signed Impressions: Service Date/Time: Saturday, May 27, 2017 03:19 - CONCLUSION: Slightly improved bilateral patchy airspace disease.. Shabbir Benjamin MD Chest X-Ray 05/26/17599 Signed Impressions: Service Date/Time: Friday, May 26, 2017 03:30 - CONCLUSION: Stable bilateral patchy consolidation. Shabbir Benjamin MD Chest CT 05/26/17 Signed Impressions: Service Date/Time: Friday, May 26, 2017 09:31 - CONCLUSION: 1. Multiple patchy areas of consolidation of both lungs which could indicate pulmonary edema. 2. Small bilateral pleural effusions right greater than left. 3. Mediastinal adenopathy and questionable mild hilar adenopathy. 4. Mild cardiomegaly. Bandar Pruitt MD Last 72 hours Impressions Chest X-Ray 05/22/17599 Signed Impressions: Service Date/Time: Monday, May 22, 2017 03:32 - CONCLUSION: No significant change has occurred. Sterling Guevara MD Chest X-Ray 05/21/17599 Signed Impressions: Service Date/Time: Sunday, May 21, 2017 02:53 - CONCLUSION: Improved aeration of the left lower lobe. Sterling Guevara MD Chest X-Ray 05/20/17599 Signed Impressions: Service Date/Time: Saturday, May 20, 2017 03:36 - CONCLUSION: 1. Patchy alveolar disease characteristic of edema or pneumonia. There has been no significant change when compared to the prior exam. Chano Bullock MD Chest X-Ray 05/20/17 Signed Impressions: Service Date/Time: Saturday, May 20, 2017 15:35 - CONCLUSION: No significant change. Bilateral infiltrates persist. No pneumothorax or other acute complication seen post bronchoscopy. David Rodriguez MD Chest X-Ray 05/20/17 Signed Impressions: Service Date/Time: Saturday, May 20, 2017 13:49 - CONCLUSION: 1. Patchy bilateral pulmonary infiltrates persist without significant change. David Rodriguez MD Physical Exam GENERAL: Looks comfortable, on nasal O2 SKIN: Warm and dry. No generalized rash HEAD: Atraumatic. Normocephalic. No temporal wasting, or tenderness. EYES: [place] conjunctiva. No petechia or hemorrhage. No scleral icterus. No injection or drainage. EARS, NOSE AND THROAT: Nose without bleeding or purulent nasal discharge. white coating on tongue, mild thrush R buccal mucosa NECK: Trachea midline. Supple and not tender, no meningeal signs CARDIOVASCULAR: Regular rate and rhythm. No murmurs, rubs or gallops heard RESPIRATORY: Bilateral rhonchi ABDOMEN: Soft, not distended, not tender. Bowel sounds present and normoactive. No guarding. No rebound. No organomegaly. EXTREMITIES: No clubbing, cyanosis, or edema. No calf tenderness. Well perfused and warm. NEUROLOGICAL: Non-focal PSYCHIATRIC: cooperative. LINE: No evidence of infection : Garcia in place, urine looks clear Assessment & Plan Remarks IMPRESSION Fever likely due to VAP, better - one low grade temps last 124 hours, ?due to atelecftasis - S/P PNA RX - CXR worse today, /due to atelectasis post extubation Initial presentation with CAP, has been on vent since 05/17 SC, S/P intervention Respiratory failure, extubated 05/26, doing well Oral thrush RECOMMENDATION Diflucan for oral thrush Monitor off Abx Follow temps Monitor progress Spoke with daughter D/W Nani Adams MD May 30, 2017 10:12
[2017-05-30] MEDS: FLUCONAZOLE 100 MG TAB PO SCH (11:58)
--- NOTE | 2017-05-30 13:22 | PD.CARD.PN ---
Subjective Subjective Remarks No CP or SOB, still has cough, not eating well Objective Medications Current Medications Medications (Trade) Dose Ordered Sig/Renaldo Route Start Time Stop Time Status Last Admin (NS Flush) 2 ml UNSCH PRN IV FLUSH 05/17/17 00:30 (NS Flush) 2 ml BID IV FLUSH 05/17/17 09:00 05/30/17 09:35 (Narcan Inj) 0.4 mg UNSCH PRN IV 05/17/17 00:30 Miscellaneous Information Patient in critical care unit? Ass... Q361D .XX 05/17/17 02:45 (Norvasc) 5 mg BID PO 05/17/17 09:00 Hold 05/17/17 07:46 (Buspar) 30 mg BID PO 05/17/17 09:00 05/30/17 09:33 (Cardizem Cd) 240 mg DAILY PO 05/17/17 09:00 Hold 05/17/17 07:48 (Glucophage) 750 mg BIDPC PO 05/17/17 09:00 Hold 05/17/17 16:32 (Cozaar) 100 mg DAILY PO 05/17/17 09:00 Hold 05/17/17 07:47 (Hydrodiuril) 12.5 mg DAILY PO 05/17/17 09:00 Hold 05/17/17 07:48 (Pill Splitter) 1 ea UNSCH PRN OTHER 05/17/17 05:30 (Nitrostat Sl) 0.4 mg Q5M PRN SL 05/17/17 09:15 05/17/17 09:28 (Tessalon) 100 mg TID PRN PO 05/17/17 09:15 05/29/17 21:08 (Lipitor) 80 mg HS PO 05/17/17 21:00 05/29/17 20:52 (Peridex 0.12% Liq) 15 ml BID@08,20 MT 05/18/17 20:00 05/29/17 08:00 (Prinivil) 10 mg Q24H PO 05/18/17 19:15 Hold 05/24/17 21:27 (Tylenol) 650 mg Q6H PRN PO 05/20/17 22:00 05/30/17 09:34 (D50w (Vial) Inj) 50 ml UNSCH PRN IV 05/22/17 13:15 (Glucagon Inj) 1 mg UNSCH PRN OTHER 05/22/17 13:15 Nystatin 5 ml 5 ml QID SWISH-SWAL 05/22/17 21:00 05/30/17 09:34 Potassium Chloride 100 ml @ 50 mls/hr Q2H PRN IV 05/23/17 07:30 (KCl 20 Meq Premix Inj) 100 ml @ 50 mls/hr Q2H PRN IV 05/23/17 07:30 Potassium Bicarb/ Potassium Chloride 50 meq 50 meq UNSCH PRN PO 05/23/17 07:30 05/30/17 05:05 Potassium Chloride 100 ml @ 25 mls/hr UNSCH PRN IV 05/23/17 07:30 Potassium Chloride 100 ml @ 50 mls/hr Q2H PRN IV 05/23/17 07:30 (Magnesium Sulfate Inj/NS Inj) 100 ml @ 50 mls/hr UNSCH PRN IV 05/23/17 07:30 Magnesium Oxide 800 mg 800 mg UNSCH PRN PO 05/23/17 07:30 (Magnesium Sulfate Inj/NS Inj) 100 ml @ 50 mls/hr UNSCH PRN IV 05/23/17 07:30 Potassium Phosphate 2000 mg 2,000 mg Q4H PRN PO 05/23/17 07:30 (Sodium Phosphate Inj/NS 250 ml Inj) 250 ml @ 42 mls/hr UNSCH PRN IV 05/23/17 07:30 05/23/17 14:50 Potassium Phosphate 2000 mg 2,000 mg UNSCH PRN PO/TUBE 05/23/17 07:30 (Potassium Phosphate Inj/NS 250 ml Inj) 260 ml @ 42 mls/hr UNSCH PRN IV 05/23/17 07:30 (Tears Naturale Opth Soln) 1 drop Q8HR EACH EYE 05/24/17 14:00 05/30/17 04:59 (NovoLOG SUPPLEMENTAL SCALE) 1 Q6HR SQ 05/24/17 12:00 05/30/17 12:02 (Apresoline Inj) 10 mg Q1HR PRN IV PUSH 05/24/17 11:30 05/30/17 06:38 (Nitroglycerin 2% Oint) 2 inch Q6HR PRN TOPICAL 05/24/17 11:30 05/25/17 09:01 (Heparin Inj) 5,000 units Q12HR SQ 05/24/17 21:00 05/30/17 09:34 (Brilinta) 90 mg BID PO 05/24/17 21:00 05/30/17 09:34 (Ecotrin Ec) 81 mg DAILY PO 05/25/17 09:00 05/30/17 09:34 (Bumex Inj) 1 mg BID@09,18 IV PUSH 05/25/17 18:00 Hold 05/28/17 10:00 (Ativan) 0.5 mg BID PO 05/25/17 09:30 05/30/17 09:34 (Robitussin Liq) 200 mg Q6H PRN PO 05/27/17 00:45 05/29/17 20:50 (Dulcolax Supp) 10 mg DAILY PRN RECTAL 05/27/17 07:00 (Coreg) 12.5 mg BID PO 05/27/17 09:00 05/30/17 09:34 (Apresoline) 50 mg Q8H PO 05/27/17 13:00 05/30/17 04:59 (Ambien) 5 mg HS PRN PO 05/27/17 21:30 05/29/17 22:26 (Catapres) 0.3 mg Q8H PO 05/28/17 17:00 05/30/17 09:35 (Pepcid) 10 mg BID PO 05/29/17 09:00 05/30/17 09:33 (Diflucan) 100 mg DAILY PO 05/30/17 11:00 06/04/17 10:59 05/30/17 11:58 Vital Signs / I&O Vital Signs Date Time Temp Pulse Resp B/P Pulse Ox O2 Delivery O2 Flow Rate FiO2 05/30/17 12:00 61 05/30/17 12:00 98.0 61 27 128/61 94 05/30/17 10:00 73 05/30/17 08:00 98.5 64 24 159/67 91 05/30/17 08:00 64 05/30/17 07:18 95 Nasal Cannula 5.00 05/30/17 06:00 65 05/30/17 04:00 61 05/30/17 04:00 98.3 61 27 150/67 95 05/30/17 02:00 67 05/30/17 00:00 63 05/30/17 00:00 99.0 66 18 134/62 90 05/29/17 22:00 66 05/29/17 21:08 93 Nasal Cannula 5.00 05/29/17 20:00 63 05/29/17 20:00 98.0 63 30 125/56 92 05/29/17 18:00 68 05/29/17 16:00 98.7 62 24 114/56 91 05/29/17 16:00 71 05/29/17 15:32 94 Nasal Cannula 5.00 05/29/17 14:00 67 I/O 05/29/17 05/29/17 05/29/17 05/30/17 05/30/17 05/30/17 07:00 15:00 23:00 07:00 15:00 23:00 Intake Total 117 ml 483 ml 450 ml 650 ml Output Total 850 ml 550 ml 500 ml 600 ml Balance -733 ml -67 ml -50 ml 50 ml Intake Oral 100 ml 480 ml 450 ml 650 ml IV Total 17 ml 3 ml 0 ml 0 ml Output Urine Total 850 ml 550 ml 500 ml 600 ml # Bowel Movements 0 0 0 0 Physical Exam GENERAL: In NAD SKIN: Warm and dry. HEAD: Normocephalic. EYES: No scleral icterus. No injection or drainage. NECK: Supple, trachea midline. No JVD or lymphadenopathy. CARDIOVASCULAR: Regular rate and rhythm without murmurs, gallops, or rubs. RESPIRATORY: Breath sounds equal bilaterally. No accessory muscle use. GASTROINTESTINAL: Abdomen soft, non-tender, nondistended. MUSCULOSKELETAL: No cyanosis, or edema. Groin stable Laboratory Laboratory Tests Test 05/29/17 05/30/17 05/30/17 20:15 02:37 11:56 Sodium Level 134 MEQ/L 137 MEQ/L Potassium Level 3.6 MEQ/L 3.5 MEQ/L 3.8 MEQ/L Chloride Level 93 MEQ/L 95 MEQ/L Carbon Dioxide Level 36.7 MEQ/L 32.9 MEQ/L Anion Gap 4 MEQ/L 9 MEQ/L Blood Urea Nitrogen 56 MG/DL 54 MG/DL Creatinine 1.55 MG/DL 1.45 MG/DL Estimat Glomerular Filtration 32 ML/MIN 35 ML/MIN Rate Random Glucose 142 MG/DL 134 MG/DL Calcium Level 8.5 MG/DL 9.4 MG/DL White Blood Count 12.2 TH/MM3 Red Blood Count 2.98 MIL/MM3 Hemoglobin 8.2 GM/DL Hematocrit 25.0 % Mean Corpuscular Volume 83.9 FL Mean Corpuscular Hemoglobin 27.6 PG Mean Corpuscular Hemoglobin 32.9 % Concent Red Cell Distribution Width 15.7 % Platelet Count 311 TH/MM3 Mean Platelet Volume 7.3 FL Neutrophils (%) (Auto) 79.0 % Lymphocytes (%) (Auto) 11.3 % Monocytes (%) (Auto) 6.7 % Eosinophils (%) (Auto) 2.3 % Basophils (%) (Auto) 0.7 % Neutrophils # (Auto) 9.7 TH/MM3 Lymphocytes # (Auto) 1.4 TH/MM3 Monocytes # (Auto) 0.8 TH/MM3 Eosinophils # (Auto) 0.3 TH/MM3 Basophils # (Auto) 0.1 TH/MM3 CBC Comment DIFF FINAL Differential Comment Total Bilirubin 1.0 MG/DL Aspartate Amino Transf 23 U/L (AST/SGOT) Alanine Aminotransferase 27 U/L (ALT/SGPT) Alkaline Phosphatase 69 U/L Total Protein 7.2 GM/DL Albumin 3.1 GM/DL Imaging Last Impressions Chest X-Ray 05/30/17 0600 Signed Impressions: Service Date/Time: Tuesday, May 30, 2017 04:34 - CONCLUSION: Persistent and stable bilateral mid and lower lung infiltrates. Arik Cosby MD Chest CT 05/26/17 0000 Signed Impressions: Service Date/Time: Friday, May 26, 2017 09:31 - CONCLUSION: 1. Multiple patchy areas of consolidation of both lungs which could indicate pulmonary edema. 2. Small bilateral pleural effusions right greater than left. 3. Mediastinal adenopathy and questionable mild hilar adenopathy. 4. Mild cardiomegaly. Bandar Pruitt MD Assessment and Plan Problem List: (1) Acute CHF (congestive heart failure) (2) NSTEMI (non-ST elevated myocardial infarction) (3) CAD (coronary artery disease) (4) High degree atrioventricular block (5) Respiratory failure (6) PNA (pneumonia) (7) Ischemic cardiomyopathy Assessment and Plan No new cardiac issues. Still c/o cough. No recurrent bradycardia. Continue Brilinta and baby ASA to prevent stent thrombosis. Renal fx stable. Continue carvedilol and lisinopril for BP control, titrate as tolerated. Continue therapy for pneumonia. Increase activity, PT. Recommend dietitian evaluation, not eating well at this time. D/w pt and daughter. Problem Qualifiers (1) PNA (pneumonia): Qualified Code: J18.9 - Pneumonia of left lung due to infectious organism, unspecified part of lung Mg Daly MD May 30, 2017 13:22
--- NOTE | 2017-05-30 13:40 | HHI.CCPN ---
Subjective Remarks/Hospital Course 81-year-old very pleasant female with a history of HTN, atrial fibrillation, DM , [place], and CKD stage 3 presented to the ED with complaints of a cough, shortness of breath and chest tightness for the last week. She states she has had a productive cough with white sputum production with increasing shortness of breath. She was admitted to ICU and while in the unit she became significantly bradycardic due to complete heart block, also in respiratory distress and severe hypoxemia. She was emergently intubated and taken to cardiac catheterization lab for retrograde heart catheterization with left ventriculography and selective coronary angiography, angioplasty and stenting of the distal left anterior descending artery and mid left anterior descending artery, and angioplasty and stenting of the proximal/ostial right coronary artery. Also transvenous pacemaker placement. Subjective: 05/18: The patient underwent cardiac stenting yesterday, maintain some intubated, with transvenous pacemaker. Dopamine has been weaned off this afternoon. Plan for CPAP trials with planned extubation in the a.m.. Heparin has been discontinued this afternoon with plans for removal of venous sheath. The patient remains hemodynamically stable. 05/19: Femoral sheath with transvenous pacemaker removed last evening. Hemodynamically stable. Carvedilol and lisinopril initiated this a.m.. Patient sedation change to Precedex in anticipation for possible extubation. The patient has tolerated CPAP trials greater than 12 hours, however failed SBT this evening. Patient's hemoglobin was noted to be 7.7 this a.m. patient received 1 unit of packed red blood cells CBC post transfusion pending. 05/20: Afebrile. Overnight the patient was noted to have thick secretions, and was lavaged 4. The patient had increasing requirements for sedation in oxygenation, CPAP trials were discontinued at 10 PM secondary to thick copious secretions. Plan for fiberoptic bronchoscopy with BAL today. Hemoglobin stable , patient remains hemodynamically stable off all pressors. 05/21: Patient febrile, copious thick secretions noted. ID following , expansion of antibiotic coverage. Initiation of tube feeds. Patient remains hemodynamically stable. 05/22: Tmax 99.9. No acute issues overnight the patient continues on Precedex and propofol infusions. She remains alert GCS 11 T communicating by writing, and responsive to yes and no questions. Patient continues to have bilateral lung consolidations, antibiotics expanded per ID. Cultures continue to be pending. Patient tolerating tube feeds will advance as tolerated. 05/23:TMax 100.9. Cultures are pending. C. difficile antigen ordered .The patient is awake and responsive on Precedex and propofol infusions. The patient tolerated CPAP trials of 8 hours yesterday. Chest x-ray pending. Tube feedings increased. Hemodynamically stable. 05/24: Tolerated PSV trial strep 7 hours yesterday. Currently afebrile. MAXIMUM TEMPERATURE 100.3. Tolerating tube feeds. Positive BM. 05/25: Episodes of hypoxia overnight. FiO2 50%. Chest x-ray shows bilateral pulmonary basilar infiltrates/edema. I will add 2 mg IV Bumex 1 now and 1 mg every 12. SBT as tolerated Subjective 05/26/17: Chest x-ray continues to show bilateral infiltrates FiO2 at 45%. Slight increase in creatinine with diuresis. A stat CT of the chest shows extensive bilateral infiltrates most likely secondary to pulmonary edema. I will give additional 2 mg IV Bumex 1 with IV albumin. Failed CPAP trial yesterday. 05/27/17: Extubated yesterday. Single episode of vomiting vital BiPAP. Currently on partial nonrebreather with saturation 98%. Chest x-ray shows interval improvement in bilateral infiltrates. Urine output more than 5 L with Bumex. Remains hypertensive. Increase Coreg to 12.5 twice a day, increase hydralazine to 50 every 8 hours 05/28/17: Overnight on pNRB for hypoxia, now placed on NC 6L, maintaining good O2 sat. CXR interval worsening bilateral infiltrates. Will give Bumex 2 mg IV x1 and 05mg /hr gtt for more aggressive diuresis. Check BMP q8h 05/29/17: Required partial nonrebreather overnight sats 99%. Chest x-ray with bilateral infiltrates right more than left despite negative fluid balance. Creatinine increased to 1.5 I will hold Bumex infusion. Check ABG today 05/30/17: Sitting up in chair. Complaints of weakness generalized. SaO2 95% on 5 L nasal cannula. Family at bedside. Creatinine slightly improved. Urine output 1.6 L in 24 hours Objective Vital Signs Date Time Temp Pulse Resp B/P Pulse Ox O2 Delivery O2 Flow Rate FiO2 05/30/17 12:00 61 05/30/17 12:00 98.0 27 128/61 94 05/30/17 07:18 Nasal Cannula 5.00 05/26/17 23:30 45 Intake and Output 05/29/17 05/29/17 05/30/17 08:00 16:00 00:00 Intake Total 117 ml 483 ml 450 ml Output Total 850 ml 550 ml 500 ml Balance -733 ml -67 ml -50 ml Result Diagram: 05/30/17 0237 05/30/17 1156 Imaging Last Impressions Chest X-Ray 05/24/17 0600 Signed Impressions: Service Date/Time: May 03:17 - CONCLUSION: No significant change has occurred. Sterling Guevara MD Objective Remarks GENERAL: Well-nourished, well-developed patient, awake, on NC with SaO2 95% SKIN: Warm and dry. Pressure injury to sacral area HEAD: Normocephalic. EYES: Pupils are equally round and reactive to light and accommodation. No scleral icterus. No injection or drainage. NECK: Supple, trachea midline. No JVD or lymphadenopathy. CARDIOVASCULAR: RRR. S1, S2. No S4. Without murmur RESPIRATORY: Few coarse crackles appreciated at bases. Symmetrical excursion. No wheezing. GASTROINTESTINAL: Abdomen soft, protuberant, non-tender, hypoactive bowel sounds. Thrush lateral distal tongue MUSCULOSKELETAL: Trace nonpitting lower extremity edema bilaterally. BACK: Nontender without obvious deformity. NEURO EXAM: Alert oriented. normal speech. Moves all 4 extremity spontaneously to command. No focal deficits A/P Assessment and Plan NEURO/Psych: Depression disorder Anxiety disorder Chronic benzodiazepine use Continue Ativan 0.5 mg po q12 (Home med) DCd Xanax on 05/25/17 Continue buspirone 30 mg twice a day anxiety Acetaminophen 650 mg by mouth every 6 hours when necessary fever/pain Respiratory: Acute hypercapnic hypoxic Respiratory failure Possible HCAP Pulmonary edema (Cardiogenic vs ARDS) Extubated 05/26. On pNRB. Cannot tolerate BiPAP Albuterol/Atrovent aerosols every 6 hours with albuterol aerosols every 2 hours PRN, EzPAP, Acapella, IS s/p dexamethasone 4 mg IV every 6 hours times x [address] chest 05/26: Bilateral extensive infiltrates pulmonary edema Cardiogenic vs ARDS, doubt infection Observe off ABX CXR 05/30 stable to slightly improved CV: Coronary artery disease Pulmonary edema Dyslipidemia Hypertension High degree AV block-now resolved 05/17 Status post angioplasty and stents of the distal LAD and mid LAD, and angioplasty and stenting of the proximal/ostial RCA Echocardiogram revealed EF 60-65%. Asymmetric septal hypertrophy. Trace MRJorge Carvedilol to 12.5 mg by mouth twice a day for hypertension 05/26. Holding lisinopril 10 mg daily due to EZ Clonidine 0.3 mg q8 and hydralazine 50 mg ill grams 3 times a day Temporary Pacemaker is been removed 05/18 Aspirin 81 mg by mouth daily, Ticagrelor 90 mg by mouth twice a day for stent Atorvastatin 80 mg by mouth daily for dyslipidemia. Holding fish oil/ cholecalciferol 1000/100 3 tablets twice a day DCd Bumex gtt 0.5 mg per hour due to creat increasing (Home medications are losartan/hctz 300 mg/12.5 mg daily with additional hydrochlorothiazide 12.5 mg additional daily. Hypertension along with metoprolol 50 mg by mouth twice a day and clonidine 0.1 mg by mouth twice a day and Norvasc 5 mg twice a day and diltiazem 240 mg by mouth daily and hydralazine 10 mg 3 times a day) ID: Possible HCAP, but infiltrates are most likely from pulm edema Oral thrush Bilateral infiltrate on chest x-ray most likely from pulmonary edema (ARDS vs cardiogenic)-these infiltrates present on CXR immediately after intubation, so VAP is unlikely. ALL cultures negative, doubt infectious etiology Monitor off all antibiotics. ID Dr. Godinez On nystatin swish and spit every 6 hours, Diflucan added today 05/20 fiberoptic bronchoscopy with BAL no growth Legionella, pneumococcal, influenza A and B antigens- results negative Repeat urine and blood cultures no growth Endo Diabetes mellitus Insulin sliding scale with NovoLog, low dose regimen. Holding metformin 750 mg twice a day/home medication Renal Chronic kidney disease stage 3 - Creatinine increased to 1.4 today. UO >1.7L. DC Bumex gtt - Monitor I's and O - Monitor Electrolytes and creatinine level GI prophylaxis Pepcid DVT- Teds SCDs heparin subcutaneous Dispo: Discussed with daughter, and DAY WORKER at bedside. Critical Care: Level 3 Continue ICU care due to potential acute decompensation. Lung infiltrates persist Rudolph Hernandez MD May 30, 2017 13:40
--- NOTE | 2017-05-30 15:55 | PD.WCN.NOT ---
Wound Consult Description: Unstageable wound to sacrococcygeal area with possible etiology of moisture and pressure Communicated with: DEEP Shepard [facility] and Doctor David Recommendation: Please obtain [facility] bed if not available please obtain K-4 bed from [facility]. Turn patient every 2 hours and PRN Cleanse bilateral buttock, sacral and coccyx areas with soap and water gently and pat dry.Apply thick layer of calazime barrier cream for now. Will reassess patient next week for further wound care recommendations Additional Information: Patient seen on 5th floor IMC for evaluation of pressure injury to buttock area. Patient turned to L side with assistance of Patient,DEEP Bui 5th floor [facility] and comic writer. Patient noted with unstageable pressure injury to sacrococcygeal area. Wound bed presents with ~60% thin soft black eschar, ~20% yellow tissue and ~20% red tissue that is non granulation. Wound has scant sero-sanguinous drainage without odor and is not actively draining. Wound has a butterfly shape with irregular wound margins. Etiology of wound appears to be mixed with moisture and pressure.Periwound is noted with blanchable erythema and peeling skin. Wound measures 6 cm x 10 cm x eschar.Cleansed wound with normal saline and applied Calazime barrier cream in a thick layer and left wound open to air. Patient positioned off bottom with pillow. Specialty bed ordered per protocol. Nutrition is following patient currently. Wound care will continue to follow patient until discharge. Danae Perkins [facility] May 30, 2017 15:55
[2017-05-30] MEDS: guaiFENesin SOLUTION 200 MG/10 ML CUP PO PRN (19:41)
[2017-05-30] MEDS: ATORVASTATIN 10 MG TAB PO SCH (19:41)
[2017-05-30] MEDS: ZOLPIDEM TARTRATE 5 MG TAB PO PRN (19:43)
[2017-05-31] VITALS (20 sets, daily range): BP systolic 127–143; BP diastolic 56–66; PULSE 55–69; RESP 18–29; TEMP 97.9–98.6; O2SAT 88–96
[2017-05-31] MEDS: cloNIDine HCL 0.3 MG TAB PO SCH ×3 (00:31→17:14)
[2017-05-31] MEDS: RESP: ALBUTEROL 2.5 MG/3 ML NEB (PRN) NEB (00:34)
[2017-05-31] MEDS: hydrALAZINE HCL 50 MG TAB PO SCH ×3 (03:46→21:06)
[2017-05-31] MEDS: ARTIFICIAL TEARS OPTH SOLN 15 ML BTL EACH EYE SCH ×3 (03:46→21:08)
[2017-05-31] MEDS: INSULIN ASPART SUPPLEMENTAL SCALE SQ SCH ×4 (04:13→17:15)
[2017-05-31] MEDS: RESP: ALBUTEROL 2.5 MG/IPRATROPIUM 0.5 MG NEB (SCH) NEB ×4 (04:23→20:16)
--- NOTE | 2017-05-31 06:04 | RADRPT ---
EXAM DATE/TIME: 05/31/2017 03:49 [facility] COMPARISON: CHEST SINGLE AP, May 30, 2017, 4:34. INDICATIONS : Shortness of breath, possible pulmonary disease. MEDICAL HISTORY : Myocardial infarction. Hypertension Diabetes mellitus type II. SURGICAL HISTORY : Hysterectomy. Cholecystectomy. ENCOUNTER: Subsequent ACUITY: 2 weeks PAIN SCORE: Non-responsive. LOCATION: Bilateral chest FINDINGS: Persistent patchy infiltrates in the mid and lower lungs bilaterally similar in severity to prior. T he heart is normal size. CONCLUSION: Persistent bilateral patchy infiltrates. Arik Cosby MD on May 31, 2017 at 6:02 Board Certified Radiologist. This report was verified electronically.
[2017-05-31 06:16] LABS: HEMATOCRIT 24.7 % (35.0-46.0); MEAN CELL VOLUME 85.1 FL (80.0-100.0); MEAN CORPUSCULAR HEMOGLOBIN 28.4 PG (27.0-34.0); MEAN CORPUSCULAR HGB CONC 33.4 % (32.0-36.0); PLATELET COUNT 323 TH/MM3 (150-450); RED BLOOD COUNT 2.91 MIL/MM3 (4.00-5.30); RED CELL DISTRIBUTION WIDTH 15.9 % (11.6-17.2); REVIEW FLAG FINAL; WHITE BLOOD COUNT 10.9 TH/MM3 (4.0-11.0)
[2017-05-31 06:43] LABS: ALT (GPT) 25 U/L (10-53); ANION GAP 9 MEQ/L (5-15); AST (GOT) 24 U/L (15-37); BICARBONATE 29.9 MEQ/L (21.0-32.0); BLOOD UREA NITROGEN 51 MG/DL (7-18); CHLORIDE 95 MEQ/L (98-107); GLOMERULAR FILTRATION RATE 41 ML/MIN (>89); POTASSIUM 3.8 MEQ/L (3.5-5.1); SODIUM (NA) 134 MEQ/L (136-145)
[2017-05-31 06:45] LABS: ALKALINE PHOSPHATASE 67 U/L (45-117); TOTAL BILIRUBIN ADULT 0.7 MG/DL (0.2-1.0)
[2017-05-31] MEDS: CHLORHEXIDINE 0.12% (ORAL KIT) 15 ML CUP MT SCH ×2 (08:00→21:05)
[2017-05-31] MEDS: LORazepam 0.5 MG TAB PO SCH ×2 (09:00→21:06)
[2017-05-31] MEDS: busPIRone HCL 10 MG TAB PO SCH ×2 (09:41→21:07)
[2017-05-31] MEDS: TICAGRELOR 90 MG TAB PO SCH ×2 (09:42→21:06)
[2017-05-31] MEDS: FLUCONAZOLE 100 MG TAB PO SCH (09:42)
[2017-05-31] MEDS: ASPIRIN EC 81 MG TABEC PO SCH (09:42)
[2017-05-31] MEDS: CARVEDILOL 12.5 MG TAB PO SCH ×2 (09:42→21:06)
[2017-05-31] MEDS: FAMOTIDINE 20 MG TAB PO SCH ×2 (09:42→21:06)
[2017-05-31] MEDS: NYSTATIN SUSP 500,000 U/5 ML CUP SWISH-SWAL SCH ×4 (09:43→21:07)
[2017-05-31] MEDS: HEPARIN SODIUM - SQ 10,000 UNITS/ML VIAL SQ SCH ×2 (09:43→21:05)
[2017-05-31] MEDS: SODIUM CHLORIDE 0.9% FLUSH 10 ML FLUSH IV FLUSH SCH ×2 (09:44→21:05)
--- NOTE | 2017-05-31 11:39 | HHI.CCPN ---
Subjective Remarks/Hospital Course 81-year-old very pleasant female with a history of HTN, atrial fibrillation, DM , [place], and CKD stage 3 presented to the ED with complaints of a cough, shortness of breath and chest tightness for the last week. She states she has had a productive cough with white sputum production with increasing shortness of breath. She was admitted to ICU and while in the unit she became significantly bradycardic due to complete heart block, also in respiratory distress and severe hypoxemia. She was emergently intubated and taken to cardiac catheterization lab for retrograde heart catheterization with left ventriculography and selective coronary angiography, angioplasty and stenting of the distal left anterior descending artery and mid left anterior descending artery, and angioplasty and stenting of the proximal/ostial right coronary artery. Also transvenous pacemaker placement. Subjective: 05/18: The patient underwent cardiac stenting yesterday, maintain some intubated, with transvenous pacemaker. Dopamine has been weaned off this afternoon. Plan for CPAP trials with planned extubation in the a.m.. Heparin has been discontinued this afternoon with plans for removal of venous sheath. The patient remains hemodynamically stable. 05/19: Femoral sheath with transvenous pacemaker removed last evening. Hemodynamically stable. Carvedilol and lisinopril initiated this a.m.. Patient sedation change to Precedex in anticipation for possible extubation. The patient has tolerated CPAP trials greater than 12 hours, however failed SBT this evening. Patient's hemoglobin was noted to be 7.7 this a.m. patient received 1 unit of packed red blood cells CBC post transfusion pending. 05/20: Afebrile. Overnight the patient was noted to have thick secretions, and was lavaged 4. The patient had increasing requirements for sedation in oxygenation, CPAP trials were discontinued at 10 PM secondary to thick copious secretions. Plan for fiberoptic bronchoscopy with BAL today. Hemoglobin stable , patient remains hemodynamically stable off all pressors. 05/21: Patient febrile, copious thick secretions noted. ID following , expansion of antibiotic coverage. Initiation of tube feeds. Patient remains hemodynamically stable. 05/22: Tmax 99.9. No acute issues overnight the patient continues on Precedex and propofol infusions. She remains alert GCS 11 T communicating by writing, and responsive to yes and no questions. Patient continues to have bilateral lung consolidations, antibiotics expanded per ID. Cultures continue to be pending. Patient tolerating tube feeds will advance as tolerated. 05/23:TMax 100.9. Cultures are pending. C. difficile antigen ordered .The patient is awake and responsive on Precedex and propofol infusions. The patient tolerated CPAP trials of 8 hours yesterday. Chest x-ray pending. Tube feedings increased. Hemodynamically stable. 05/24: Tolerated PSV trial strep 7 hours yesterday. Currently afebrile. MAXIMUM TEMPERATURE 100.3. Tolerating tube feeds. Positive BM. 05/25: Episodes of hypoxia overnight. FiO2 50%. Chest x-ray shows bilateral pulmonary basilar infiltrates/edema. I will add 2 mg IV Bumex 1 now and 1 mg every 12. SBT as tolerated Subjective 05/26/17: Chest x-ray continues to show bilateral infiltrates FiO2 at 45%. Slight increase in creatinine with diuresis. A stat CT of the chest shows extensive bilateral infiltrates most likely secondary to pulmonary edema. I will give additional 2 mg IV Bumex 1 with IV albumin. Failed CPAP trial yesterday. 05/27/17: Extubated yesterday. Single episode of vomiting vital BiPAP. Currently on partial nonrebreather with saturation 98%. Chest x-ray shows interval improvement in bilateral infiltrates. Urine output more than 5 L with Bumex. Remains hypertensive. Increase Coreg to 12.5 twice a day, increase hydralazine to 50 every 8 hours 05/28/17: Overnight on pNRB for hypoxia, now placed on NC 6L, maintaining good O2 sat. CXR interval worsening bilateral infiltrates. Will give Bumex 2 mg IV x1 and 05mg /hr gtt for more aggressive diuresis. Check BMP q8h 05/29/17: Required partial nonrebreather overnight sats 99%. Chest x-ray with bilateral infiltrates right more than left despite negative fluid balance. Creatinine increased to 1.5 I will hold Bumex infusion. Check ABG today 05/30/17: Sitting up in chair. Complaints of weakness generalized. SaO2 95% on 5 L nasal cannula. Family at bedside. Creatinine slightly improved. Urine output 1.6 L in 24 hours 81/7: Patient just completed physical therapy, tired but good oxygen saturation. 97% sats on 6 L nasal cannula. Urine output 1.6 L in 24 hours, creat 1.3 today down from 1.45. Objective Vital Signs Date Time Temp Pulse Resp B/P Pulse Ox O2 Delivery O2 Flow Rate FiO2 05/31/17 10:00 64 05/31/17 08:07 96 Nasal Cannula 6.00 05/31/17 08:00 98.3 19 Intake and Output 05/30/17 05/30/17 05/31/17 08:00 16:00 00:00 Intake Total 650 ml 750 ml 400 ml Output Total 600 ml 500 ml 550 ml Balance 50 ml 250 ml -150 ml Result Diagram: 05/31/17 0444 05/31/17 0444 Imaging Last Impressions Chest X-Ray 05/24/17 0600 Signed Impressions: Service Date/Time: May 03:17 - CONCLUSION: No significant change has occurred. Sterling Guevara MD Objective Remarks GENERAL: Well-nourished, well-developed patient, awake, on NC with SaO2 97%. Tired SKIN: Warm and dry. Pressure injury to sacral area HEAD: Normocephalic. EYES: Pupils are equally round and reactive to light and accommodation. No scleral icterus. No injection or drainage. NECK: Supple, trachea midline. No JVD or lymphadenopathy. CARDIOVASCULAR: RRR. S1, S2. No S4. Without murmur RESPIRATORY: Few coarse crackles appreciated at bases. Symmetrical excursion. No wheezing. GASTROINTESTINAL: Abdomen soft, protuberant, non-tender, hypoactive bowel sounds. Thrush lateral distal tongue MUSCULOSKELETAL: Trace nonpitting lower extremity edema bilaterally. BACK: Nontender without obvious deformity. NEURO: Alert oriented. normal speech. Moves all 4 extremity spontaneously to command. Urinary Catheter: Yes Assessment to: Remove A/P Assessment and Plan NEURO/Psych: Depression disorder Anxiety disorder Chronic benzodiazepine use Continue Ativan 0.5 mg po q12 (Home med) DCd Xanax on 05/25/17 Continue buspirone 30 mg twice a day anxiety Acetaminophen 650 mg by mouth every 6 hours when necessary fever/pain Respiratory: Acute hypercapnic hypoxic Respiratory failure HCAP Pulmonary edema (Cardiogenic vs ARDS) Extubated 05/26. On NC. Cannot tolerate BiPAP Albuterol/Atrovent aerosols every 6 hours with albuterol aerosols every 2 hours PRN, EzPAP, Acapella, IS s/p dexamethasone 4 mg IV every 6 hours times x [address] dos[address] chest 05/26: Bilateral extensive infiltrates pulmonary edema Cardiogenic vs ARDS, doubt infection Observe off ABX CXR 05/30 stable to slightly improved CV: NSTEMI Pulmonary edema High degree AV block-now resolved Dyslipidemia Hypertension 05/17 Status post angioplasty and stents of the distal LAD and mid LAD, and angioplasty and stenting of the proximal/ostial RCA Echocardiogram revealed EF 60-65%. Asymmetric septal hypertrophy. Trace MR. Carvedilol to 12.5 mg by mouth twice a day for hypertension 05/26. Holding lisinopril 10 mg daily due to EZ Clonidine 0.3 mg q8 and hydralazine 50 mg ill grams 3 times a day Temporary Pacemaker is been removed 05/18 Aspirin 81 mg by mouth daily, Ticagrelor 90 mg by mouth twice a day for stent Atorvastatin 80 mg by mouth daily for dyslipidemia. Holding fish oil/ cholecalciferol 1000/100 3 tablets twice a day DCd Bumex gtt 0.5 mg per hour due to creat increasing (Home medications are losartan/hctz 300 mg/12.5 mg daily with additional hydrochlorothiazide 12.5 mg additional daily. Hypertension along with metoprolol 50 mg by mouth twice a day and clonidine 0.1 mg by mouth twice a day and Norvasc 5 mg twice a day and diltiazem 240 mg by mouth daily and hydralazine 10 mg 3 times a day) ID: Possible HCAP, but infiltrates are most likely from pulm edema Oral thrush Bilateral infiltrate on chest x-ray most likely from pulmonary edema (ARDS vs cardiogenic)-these infiltrates present on CXR immediately after intubation, so VAP is unlikely. ALL cultures negative, doubt infectious etiology Monitor off all antibiotics. ID Dr. Godinez On nystatin swish and spit every 6 hours, Diflucan added 05/30 05/20 fiberoptic bronchoscopy with BAL no growth Legionella, pneumococcal, influenza A and B antigens- results negative Repeat urine and blood cultures no growth Endo Diabetes mellitus Insulin sliding scale with NovoLog, low dose regimen. Holding metformin 750 mg twice a day/home medication Renal Chronic kidney disease stage 3 - Creatinine 1.27, improving. UO -1.7L in 24 hours - DC Garcia - Monitor I's and O GI prophylaxis Pepcid DVT- Teds SCDs heparin subcutaneous Dispo: Discussed with daughter, and GRINDER AND PLATER at bedside. Critical Care: Level 2 Consult hospitalist to assume care in am. Continue ICU. Pulmonary consulted Rudolph Hernandez MD May 31, 2017 11:39
--- NOTE | 2017-05-31 13:28 | PD.CARD.PN ---
Subjective Subjective Remarks No CP or SOB, cough improving, eating better Objective Medications Current Medications Medications (Trade) Dose Ordered Sig/Renaldo Route Start Time Stop Time Status Last Admin (NS Flush) 2 ml UNSCH PRN IV FLUSH 05/17/17 00:30 (NS Flush) 2 ml BID IV FLUSH 05/17/17 09:00 05/31/17 09:44 (Narcan Inj) 0.4 mg UNSCH PRN IV 05/17/17 00:30 Miscellaneous Information Patient in critical care unit? Ass... Q361D .XX 05/17/17 02:45 (Norvasc) 5 mg BID PO 05/17/17 09:00 Hold 05/17/17 07:46 (Buspar) 30 mg BID PO 05/17/17 09:00 05/31/17 09:41 (Cardizem Cd) 240 mg DAILY PO 05/17/17 09:00 Hold 05/17/17 07:48 (Glucophage) 750 mg BIDPC PO 05/17/17 09:00 Hold 05/17/17 16:32 (Cozaar) 100 mg DAILY PO 05/17/17 09:00 Hold 05/17/17 07:47 (Hydrodiuril) 12.5 mg DAILY PO 05/17/17 09:00 Hold 05/17/17 07:48 (Pill Splitter) 1 ea UNSCH PRN OTHER 05/17/17 05:30 (Nitrostat Sl) 0.4 mg Q5M PRN SL 05/17/17 09:15 05/17/17 09:28 (Tessalon) 100 mg TID PRN PO 05/17/17 09:15 05/29/17 21:08 (Lipitor) 80 mg HS PO 05/17/17 21:00 05/30/17 19:41 (Peridex 0.12% Liq) 15 ml BID@08,20 MT 05/18/17 20:00 05/29/17 08:00 (Prinivil) 10 mg Q24H PO 05/18/17 19:15 Hold 05/24/17 21:27 (Tylenol) 650 mg Q6H PRN PO 05/20/17 22:00 05/30/17 09:34 (D50w (Vial) Inj) 50 ml UNSCH PRN IV 05/22/17 13:15 (Glucagon Inj) 1 mg UNSCH PRN OTHER 05/22/17 13:15 Nystatin 5 ml 5 ml QID SWISH-SWAL 05/22/17 21:00 05/31/17 13:02 Potassium Chloride 100 ml @ 50 mls/hr Q2H PRN IV 05/23/17 07:30 (KCl 20 Meq Premix Inj) 100 ml @ 50 mls/hr Q2H PRN IV 05/23/17 07:30 Potassium Bicarb/ Potassium Chloride 50 meq 50 meq UNSCH PRN PO 05/23/17 07:30 05/30/17 05:05 Potassium Chloride 100 ml @ 25 mls/hr UNSCH PRN IV 05/23/17 07:30 Potassium Chloride 100 ml @ 50 mls/hr Q2H PRN IV 05/23/17 07:30 (Magnesium Sulfate Inj/NS Inj) 100 ml @ 50 mls/hr UNSCH PRN IV 05/23/17 07:30 Magnesium Oxide 800 mg 800 mg UNSCH PRN PO 05/23/17 07:30 (Magnesium Sulfate Inj/NS Inj) 100 ml @ 50 mls/hr UNSCH PRN IV 05/23/17 07:30 Potassium Phosphate 2000 mg 2,000 mg Q4H PRN PO 05/23/17 07:30 (Sodium Phosphate Inj/NS 250 ml Inj) 250 ml @ 42 mls/hr UNSCH PRN IV 05/23/17 07:30 05/23/17 14:50 Potassium Phosphate 2000 mg 2,000 mg UNSCH PRN PO/TUBE 05/23/17 07:30 (Potassium Phosphate Inj/NS 250 ml Inj) 260 ml @ 42 mls/hr UNSCH PRN IV 05/23/17 07:30 (Tears Naturale Opth Soln) 1 drop Q8HR EACH EYE 05/24/17 14:00 05/31/17 13:03 (NovoLOG SUPPLEMENTAL SCALE) 1 Q6HR SQ 05/24/17 12:00 05/31/17 13:04 (Apresoline Inj) 10 mg Q1HR PRN IV PUSH 05/24/17 11:30 05/30/17 06:38 (Nitroglycerin 2% Oint) 2 inch Q6HR PRN TOPICAL 05/24/17 11:30 05/25/17 09:01 (Heparin Inj) 5,000 units Q12HR SQ 05/24/17 21:00 05/31/17 09:43 (Brilinta) 90 mg BID PO 05/24/17 21:00 05/31/17 09:42 (Ecotrin Ec) 81 mg DAILY PO 05/25/17 09:00 05/31/17 09:42 (Bumex Inj) 1 mg BID@09,18 IV PUSH 05/25/17 18:00 Hold 05/28/17 10:00 (Ativan) 0.5 mg BID PO 05/25/17 09:30 05/31/17 09:00 (Robitussin Liq) 200 mg Q6H PRN PO 05/27/17 00:45 05/30/17 19:41 (Dulcolax Supp) 10 mg DAILY PRN RECTAL 05/27/17 07:00 (Coreg) 12.5 mg BID PO 05/27/17 09:00 05/31/17 09:42 (Apresoline) 50 mg Q8H PO 05/27/17 13:00 05/31/17 13:02 (Ambien) 5 mg HS PRN PO 05/27/17 21:30 05/30/17 19:43 (Catapres) 0.3 mg Q8H PO 05/28/17 17:00 05/31/17 09:42 (Pepcid) 10 mg BID PO 05/29/17 09:00 05/31/17 09:42 (Diflucan) 100 mg DAILY PO 05/30/17 11:00 06/04/17 10:59 05/31/17 09:42 Vital Signs / I&O Vital Signs Date Time Temp Pulse Resp B/P Pulse Ox O2 Delivery O2 Flow Rate FiO2 05/31/17 12:00 97.9 59 29 96 05/31/17 12:00 59 05/31/17 11:00 66 05/31/17 10:00 64 05/31/17 09:00 68 05/31/17 08:07 96 Nasal Cannula 6.00 05/31/17 08:00 98.3 64 19 88 05/31/17 08:00 64 05/31/17 07:00 63 05/31/17 06:00 61 05/31/17 04:00 98.1 62 21 127/56 94 05/31/17 04:00 62 8/17/17 02:00 55 05/31/17 00:00 98.0 60 25 133/63 89 05/31/17 00:00 60 05/30/17 22:00 57 05/30/17 20:00 62 05/30/17 20:00 98.3 62 23 170/90 100 05/30/17 19:55 98 Nasal Cannula 5.00 05/30/17 18:00 59 05/30/17 16:00 60 05/30/17 16:00 98.3 60 25 133/63 94 05/30/17 14:00 60 I/O 05/30/17 05/30/17 05/30/17 05/31/17 05/31/17 05/31/17 07:00 15:00 23:00 07:00 15:00 23:00 Intake Total 650 ml 750 ml 400 ml 600 ml Output Total 600 ml 500 ml 550 ml 550 ml Balance 50 ml 250 ml -150 ml 50 ml Intake Oral 650 ml 750 ml 400 ml 600 ml IV Total 0 ml 0 ml 0 ml Output Urine Total 600 ml 500 ml 550 ml 550 ml # Bowel Movements 0 0 0 0 Physical Exam GENERAL: In NAD SKIN: Warm and dry. HEAD: Normocephalic. EYES: No scleral icterus. No injection or drainage. NECK: Supple, trachea midline. No JVD or lymphadenopathy. CARDIOVASCULAR: Regular rate and rhythm without murmurs, gallops, or rubs. RESPIRATORY: Breath sounds equal bilaterally. No accessory muscle use. GASTROINTESTINAL: Abdomen soft, non-tender, nondistended. MUSCULOSKELETAL: No cyanosis, or edema. Groin stable Laboratory Laboratory Tests Test 05/31/17 04:44 White Blood Count 10.9 TH/MM3 Red Blood Count 2.91 MIL/MM3 Hemoglobin 8.3 GM/DL Hematocrit 24.7 % Mean Corpuscular Volume 85.1 FL Mean Corpuscular Hemoglobin 28.4 PG Mean Corpuscular Hemoglobin 33.4 % Concent Red Cell Distribution Width 15.9 % Platelet Count 323 TH/MM3 Mean Platelet Volume 7.3 FL Sodium Level 134 MEQ/L Potassium Level 3.8 MEQ/L Chloride Level 95 MEQ/L Carbon Dioxide Level 29.9 MEQ/L Anion Gap 9 MEQ/L Blood Urea Nitrogen 51 MG/DL Creatinine 1.27 MG/DL Estimat Glomerular Filtration 41 ML/MIN Rate Random Glucose 133 MG/DL Calcium Level 9.1 MG/DL Total Bilirubin 0.7 MG/DL Aspartate Amino Transf 24 U/L (AST/SGOT) Alanine Aminotransferase 25 U/L (ALT/SGPT) Alkaline Phosphatase 67 U/L Total Protein 6.9 GM/DL Albumin 2.9 GM/DL Imaging Last Impressions Chest X-Ray 05/31/17 0600 Signed Impressions: Service Date/Time: May 03:49 - CONCLUSION: Persistent bilateral patchy infiltrates. Arik Cosby MD Chest CT 05/26/17 0000 Signed Impressions: Service Date/Time: Friday, May 26, 2017 09:31 - CONCLUSION: 1. Multiple patchy areas of consolidation of both lungs which could indicate pulmonary edema. 2. Small bilateral pleural effusions right greater than left. 3. Mediastinal adenopathy and questionable mild hilar adenopathy. 4. Mild cardiomegaly. Bandar Pruitt MD Assessment and Plan Problem List: (1) Acute CHF (congestive heart failure) (2) NSTEMI (non-ST elevated myocardial infarction) (3) CAD (coronary artery disease) (4) High degree atrioventricular block (5) Respiratory failure (6) PNA (pneumonia) (7) Ischemic cardiomyopathy Assessment and Plan No new cardiac issues. No recurrent bradycardia. Continue Brilinta and baby ASA to prevent stent thrombosis. Renal fx stable. Continue carvedilol and lisinopril for BP control, titrate as tolerated. Continue therapy for pneumonia. Increase activity, PT. Recommend dietitian evaluation. Transfer out of ICU to floor w tele. D/w pt and daughter. Problem Qualifiers (1) PNA (pneumonia): Qualified Code: J18.9 - Pneumonia of left lung due to infectious organism, unspecified part of lung Mg Daly MD May 31, 2017 13:28
[2017-05-31] MEDS: BENZONATATE 100 MG CAP PO PRN (17:15)
[2017-05-31] MEDS: ATORVASTATIN 10 MG TAB PO SCH (21:07)
[2017-05-31] MEDS: ZOLPIDEM TARTRATE 5 MG TAB PO PRN (21:07)
--- NOTE | 2017-05-31 21:17 | MB ---
cc: Missy LAWRENCE M.D. DATE OF CONSULTATION 05/31/17 REASON FOR CONSULTATION: Respiratory failure, bilateral pulmonary infiltrates. PRESENT ILLNESS This is a 81-year-old white female who was initially admitted on with a history of cough, dyspnea, chest tightness of a week's duration. The patient was bringing up some whitish mucus and became progressively short of breath but had no fevers but complained of chills. Following admission the patient did have a chest x-ray which showed a left perihilar infiltrate as well as a left lower lobe infiltrate. She was started on IV antibiotics and started on bronchodilators as well as oxygen and admitted. Following admission, however, the patient failed to improve and was in the intensive care unit and became bradycardic with a complete heart block and was becoming progressively hypoxemic. She had to be intubated emergently and taken for a cardiac catheterization and ventriculography and had angioplasty of distal anterior descending artery for a critical coronary artery disease and also angioplasty and stenting of the proximal ostial right coronary artery and a transvenous pacemaker was placed. The patient then was in the intensive care unit and intubated and on ventilator support as well as on pressors. The pressors are weaned off the following day. C-PAP trials were done and the patient remained on anticoagulation. For the next 2 days she was found to have thick secretions from the trach and a C-PAP trials were discontinued and she underwent a bronchoscopy on 05/20. Infectious disease consultation was called and she was placed on broad-spectrum antibiotic coverage. The following day she was having some low grade fevers but she was on ventilator support and was under sedation. The patient had a chest x-ray which showed bilateral pulmonary infiltrates. She was also started on tube feedings. The patient over the next 3 days was gradually weaned down on the ventilator. The chest x-ray continued to show bilateral basilar pulmonary infiltrates. FIO2 was reduced to 35% and she was extubated on 05/26 and was on diuretic therapy for suspicion of fluid overload and pulmonary edema. The patient following extubation had to be placed on BiPap and on a Ventimask. Over the past 3 days she has been intermittently on BiPap and presently on a nasal cannula at 6 liters and seems to be having mild shortness of breath and is orthopneic as well. The chest x-ray continues to show patchy bilateral pulmonary infiltrates. The urine output has been adequate and the BUN has been slightly elevated at 42. The patient is alert and conversing and denies any chest pains. She has no leg swelling. Denies any abdominal pains but has had some nausea. PAST HISTORY Significant for history of diabetes mellitus, history of previous VA, and a history of chronic kidney disease, history of hypertension and chronic atrial fibrillation. She has had coronary stenting done in the past and a hysterectomy as well as a cholecystectomy in the past. ALLERGIES ALLERGIES TO [facility]. MEDICATIONS List included 1. Hydralazine 25 milligrams t.i.d. 2. HCTZ 12.5 milligrams daily. 3. Diltiazem 240 milligrams a day. 4. Atorvastatin 20 milligrams daily. 5. Metformin 500 milligrams b.i.d. 6. Amlodipine 5 milligrams b.i.d. 7. Irbesartan 300 ___ milligrams a day. 8. Aspirin 325 milligrams a day. 9. Clonidine 0.1 milligrams b.i.d. 10. Chondroitin sulfate. 11. Also on lorazepam 0.5 milligrams b.i.d. FAMILY HISTORY Significant for lung cancer in her mother and her father had heart attacks. HABITS The patient does not smoke. No significant alcohol use. REVIEW OF SYSTEMS The patient denies weight loss. She has had some cough, wheezing, chest congestion. She has joint pains. Denies any urinary symptoms or GI symptoms. Denies any skin rash. She has anxiety. No depression. PHYSICAL EXAMINATION GENERAL: This averagely built elderly lady who is sitting upright, pale and mildly dyspneic. VITAL SIGNS: Blood pressure 138/80, pulse is 65, respirations 20, temperature 99. HEENT: Head normocephalic. Pupils are reactive. Tongue is moist. Throat was clear. NECK: Supple. No venous distension. No thyromegaly or lymphadenopathy. CHEST: Distant breath sounds with occasional wheezes in the upper lung boyer. There is occasional crackles heard at both lung bases. HEART: The heart sounds are irregular, S1-S2. No murmur. No S3. ABDOMEN: Abdomen is soft, protuberant without masses. No organomegaly or tenderness. Bowel sounds are active. EXTREMITIES: No edema. Mild varicosities. Reflexes are brisk with no gross motor deficits. NEURO: Cranial nerves grossly intact. SKIN: Skin was warm and dry. IMPRESSION 1. Acute respiratory failure, resolving. 2. Bilateral pulmonary infiltrates with pulmonary edema versus atypical pneumonia. 3. Status post coronary artery stenting with acute coronary syndrome. 4. History of diabetes mellitus type 2. 5. Hypertension and hyperlipidemia. 6. High degree AV block, resolved. PLAN The patient is on O2 at 5 liters nasal cannula. We could use BiPap 12 x 5 cm and 35% at night. Also, get a follow up chest x-ray in the a.m. She is been observed without antibiotic therapy for now since there is no active suggestion of infection. We will also advise her to use the incentive spirometer every 2-3 hours. PFT will be done when she is clinically stable and out of the ICU and DuoNeb solution with a nebulizer added q.i.d. Thank you Dr. Hernandez for this consultation. MD MELIDA Elkins/RAEGAN /8:05 PM /8:44 PM
[2017-05-31] MEDS: guaiFENesin SOLUTION 200 MG/10 ML CUP PO PRN (22:15)
[2017-06-01] VITALS (20 sets, daily range): BP systolic 118–166; BP diastolic 57–79; PULSE 54–63; RESP 16–30; TEMP 97.9–98.7; O2SAT 81–95
[2017-06-01] MEDS: cloNIDine HCL 0.3 MG TAB PO SCH ×3 (00:34→16:42)
[2017-06-01] MEDS: INSULIN ASPART SUPPLEMENTAL SCALE SQ SCH ×4 (05:44→18:00)
[2017-06-01] MEDS: ARTIFICIAL TEARS OPTH SOLN 15 ML BTL EACH EYE SCH ×3 (05:44→21:00)
[2017-06-01] MEDS: hydrALAZINE HCL 50 MG TAB PO SCH ×3 (05:44→21:01)
[2017-06-01] MEDS: CHLORHEXIDINE 0.12% (ORAL KIT) 15 ML CUP MT SCH ×2 (08:00→20:58)
--- NOTE | 2017-06-01 08:31 | PD.CARD.PN ---
Subjective Subjective Remarks No CP or SOB, feels better Objective Medications Current Medications Medications (Trade) Dose Ordered Sig/Renaldo Route Start Time Stop Time Status Last Admin (NS Flush) 2 ml UNSCH PRN IV FLUSH 05/17/17 00:30 (NS Flush) 2 ml BID IV FLUSH 05/17/17 09:00 05/31/17 21:05 (Narcan Inj) 0.4 mg UNSCH PRN IV 05/17/17 00:30 Miscellaneous Information Patient in critical care unit? Ass... Q361D .XX 05/17/17 02:45 (Norvasc) 5 mg BID PO 05/17/17 09:00 Hold 05/17/17 07:46 (Buspar) 30 mg BID PO 05/17/17 09:00 05/31/17 21:07 (Cardizem Cd) 240 mg DAILY PO 05/17/17 09:00 Hold 05/17/17 07:48 (Glucophage) 750 mg BIDPC PO 05/17/17 09:00 Hold 05/17/17 16:32 (Cozaar) 100 mg DAILY PO 05/17/17 09:00 Hold 05/17/17 07:47 (Hydrodiuril) 12.5 mg DAILY PO 05/17/17 09:00 Hold 05/17/17 07:48 (Pill Splitter) 1 ea UNSCH PRN OTHER 05/17/17 05:30 (Nitrostat Sl) 0.4 mg Q5M PRN SL 05/17/17 09:15 05/17/17 09:28 (Tessalon) 100 mg TID PRN PO 05/17/17 09:15 05/31/17 17:15 (Lipitor) 80 mg HS PO 05/17/17 21:00 05/31/17 21:07 (Peridex 0.12% Liq) 15 ml BID@08,20 MT 05/18/17 20:00 05/31/17 21:05 (Prinivil) 10 mg Q24H PO 05/18/17 19:15 Hold 05/24/17 21:27 (Tylenol) 650 mg Q6H PRN PO 05/20/17 22:00 05/30/17 09:34 (D50w (Vial) Inj) 50 ml UNSCH PRN IV 05/22/17 13:15 (Glucagon Inj) 1 mg UNSCH PRN OTHER 05/22/17 13:15 Nystatin 5 ml 5 ml QID SWISH-SWAL 05/22/17 21:00 05/31/17 21:07 Potassium Chloride 100 ml @ 50 mls/hr Q2H PRN IV 05/23/17 07:30 (KCl 20 Meq Premix Inj) 100 ml @ 50 mls/hr Q2H PRN IV 05/23/17 07:30 Potassium Bicarb/ Potassium Chloride 50 meq 50 meq UNSCH PRN PO 05/23/17 07:30 05/30/17 05:05 Potassium Chloride 100 ml @ 25 mls/hr UNSCH PRN IV 05/23/17 07:30 Potassium Chloride 100 ml @ 50 mls/hr Q2H PRN IV 05/23/17 07:30 (Magnesium Sulfate Inj/NS Inj) 100 ml @ 50 mls/hr UNSCH PRN IV 05/23/17 07:30 Magnesium Oxide 800 mg 800 mg UNSCH PRN PO 05/23/17 07:30 (Magnesium Sulfate Inj/NS Inj) 100 ml @ 50 mls/hr UNSCH PRN IV 05/23/17 07:30 Potassium Phosphate 2000 mg 2,000 mg Q4H PRN PO 05/23/17 07:30 (Sodium Phosphate Inj/NS 250 ml Inj) 250 ml @ 42 mls/hr UNSCH PRN IV 05/23/17 07:30 05/23/17 14:50 Potassium Phosphate 2000 mg 2,000 mg UNSCH PRN PO/TUBE 05/23/17 07:30 (Potassium Phosphate Inj/NS 250 ml Inj) 260 ml @ 42 mls/hr UNSCH PRN IV 05/23/17 07:30 (Tears Naturale Opth Soln) 1 drop Q8HR EACH EYE 05/24/17 14:00 06/01/17 05:44 (NovoLOG SUPPLEMENTAL SCALE) 1 Q6HR SQ 05/24/17 12:00 06/01/17 05:44 (Apresoline Inj) 10 mg Q1HR PRN IV PUSH 05/24/17 11:30 05/30/17 06:38 (Nitroglycerin 2% Oint) 2 inch Q6HR PRN TOPICAL 05/24/17 11:30 05/25/17 09:01 (Heparin Inj) 5,000 units Q12HR SQ 05/24/17 21:00 05/31/17 21:05 (Brilinta) 90 mg BID PO 05/24/17 21:00 05/31/17 21:06 (Ecotrin Ec) 81 mg DAILY PO 05/25/17 09:00 05/31/17 09:42 (Bumex Inj) 1 mg BID@09,18 IV PUSH 05/25/17 18:00 Hold 05/28/17 10:00 (Ativan) 0.5 mg BID PO 05/25/17 09:30 05/31/17 21:06 (Robitussin Liq) 200 mg Q6H PRN PO 05/27/17 00:45 05/31/17 22:15 (Dulcolax Supp) 10 mg DAILY PRN RECTAL 05/27/17 07:00 (Coreg) 12.5 mg BID PO 05/27/17 09:00 05/31/17 21:06 (Apresoline) 50 mg Q8H PO 05/27/17 13:00 06/01/17 05:44 (Ambien) 5 mg HS PRN PO 05/27/17 21:30 05/31/17 21:07 (Catapres) 0.3 mg Q8H PO 05/28/17 17:00 06/01/17 00:34 (Pepcid) 10 mg BID PO 05/29/17 09:00 05/31/17 21:06 (Diflucan) 100 mg DAILY PO 05/30/17 11:00 06/04/17 10:59 05/31/17 09:42 Vital Signs / I&O Vital Signs Date Time Temp Pulse Resp B/P Pulse Ox O2 Delivery O2 Flow Rate FiO2 06/01/17 06:00 58 06/01/17 04:00 56 06/01/17 04:00 98.1 56 18 118/57 94 06/01/17 02:00 58 06/01/17 00:00 98.3 63 16 133/79 94 06/01/17 00:00 63 05/31/17 22:00 66 05/31/17 20:17 93 Nasal Cannula 5.00 05/31/17 20:00 98.6 62 18 143/66 93 05/31/17 20:00 62 05/31/17 18:00 69 05/31/17 17:00 57 05/31/17 16:00 98.3 61 28 96 05/31/17 16:00 61 05/31/17 15:00 63 05/31/17 14:00 59 05/31/17 13:00 59 05/31/17 12:00 97.9 59 29 96 05/31/17 12:00 59 05/31/17 11:00 66 05/31/17 10:00 64 05/31/17 09:00 68 I/O 05/31/17 05/31/17 05/31/17 06/01/17 06/01/17 06/01/17 07:00 15:00 23:00 07:00 15:00 23:00 Intake Total 600 ml 250 ml 240 ml 120 ml Output Total 550 ml 750 ml Balance 50 ml -500 ml 240 ml 120 ml Intake Oral 600 ml 250 ml 240 ml 120 ml IV Total 0 ml 0 ml 0 ml Output Urine Total 550 ml 750 ml # Voids 3 2 # Bowel Movements 0 0 0 Physical Exam GENERAL: In NAD SKIN: Warm and dry. HEAD: Normocephalic. EYES: No scleral icterus. No injection or drainage. NECK: Supple, trachea midline. No JVD or lymphadenopathy. CARDIOVASCULAR: Regular rate and rhythm without murmurs, gallops, or rubs. RESPIRATORY: Breath sounds equal bilaterally. No accessory muscle use. GASTROINTESTINAL: Abdomen soft, non-tender, nondistended. MUSCULOSKELETAL: No cyanosis, or edema. Groin stable Laboratory Laboratory Tests Test 05/28/17 05/29/17 05/30/17 05/31/17 05:01 11:15 02:37 04:44 Magnesium Level 2.4 MG/DL Blood Gas Puncture Site RT RADIAL Blood Gas Patient Temperature 98.6 Blood Gas HCO3 33 mmol/L Blood Gas Base Excess 8.5 mmol/L Blood Gas Oxygen Saturation 94 % Arterial Blood pH 7.48 Arterial Blood Partial 45 mmHg Pressure CO2 Arterial Blood Partial 88 mmHg Pressure O2 Arterial Blood Oxygen Content 11.5 Vol % Arterial Blood 2.0 % Carboxyhemoglobin Arterial Blood Methemoglobin 1.0 % Blood Gas Hemoglobin 8.6 G/DL Oxygen Delivery Device NASAL CANNULA Blood Gas Liter Flow 6 L/M Neutrophils (%) (Auto) 79.0 % Lymphocytes (%) (Auto) 11.3 % Monocytes (%) (Auto) 6.7 % Eosinophils (%) (Auto) 2.3 % Basophils (%) (Auto) 0.7 % Neutrophils # (Auto) 9.7 TH/MM3 Lymphocytes # (Auto) 1.4 TH/MM3 Monocytes # (Auto) 0.8 TH/MM3 Eosinophils # (Auto) 0.3 TH/MM3 Basophils # (Auto) 0.1 TH/MM3 CBC Comment DIFF FINAL Differential Comment White Blood Count 10.9 TH/MM3 Red Blood Count 2.91 MIL/MM3 Hemoglobin 8.3 GM/DL Hematocrit 24.7 % Mean Corpuscular Volume 85.1 FL Mean Corpuscular Hemoglobin 28.4 PG Mean Corpuscular Hemoglobin 33.4 % Concent Red Cell Distribution Width 15.9 % Platelet Count 323 TH/MM3 Mean Platelet Volume 7.3 FL Sodium Level 134 MEQ/L Potassium Level 3.8 MEQ/L Chloride Level 95 MEQ/L Carbon Dioxide Level 29.9 MEQ/L Anion Gap 9 MEQ/L Blood Urea Nitrogen 51 MG/DL Creatinine 1.27 MG/DL Estimat Glomerular Filtration 41 ML/MIN Rate Random Glucose 133 MG/DL Calcium Level 9.1 MG/DL Total Bilirubin 0.7 MG/DL Aspartate Amino Transf 24 U/L (AST/SGOT) Alanine Aminotransferase 25 U/L (ALT/SGPT) Alkaline Phosphatase 67 U/L Total Protein 6.9 GM/DL Albumin 2.9 GM/DL Imaging Last Impressions Chest X-Ray 05/31/17 0600 Signed Impressions: Service Date/Time: May 03:49 - CONCLUSION: Persistent bilateral patchy infiltrates. Arik Cosby MD Chest CT 05/26/17 0000 Signed Impressions: Service Date/Time: Friday, May 26, 2017 09:31 - CONCLUSION: 1. Multiple patchy areas of consolidation of both lungs which could indicate pulmonary edema. 2. Small bilateral pleural effusions right greater than left. 3. Mediastinal adenopathy and questionable mild hilar adenopathy. 4. Mild cardiomegaly. Bandar Pruitt MD Assessment and Plan Problem List: (1) Acute CHF (congestive heart failure) (2) NSTEMI (non-ST elevated myocardial infarction) (3) CAD (coronary artery disease) (4) High degree atrioventricular block (5) Respiratory failure (6) PNA (pneumonia) (7) Ischemic cardiomyopathy Assessment and Plan No new cardiac issues. No recurrent bradycardia. Continue Brilinta and baby ASA to prevent stent thrombosis. Renal fx stable. Continue carvedilol and lisinopril for BP control, titrate as tolerated. Increase activity, PT. Recommend dietitian evaluation. Transfer out of ICU to floor w tele. D/w pt and daughter. F/u w Dr. Roa after discharge. Problem Qualifiers (1) PNA (pneumonia): Qualified Code: J18.9 - Pneumonia of left lung due to infectious organism, unspecified part of lung Mg Daly MD Jun 01, 2017 08:31
[2017-06-01] MEDS: SODIUM CHLORIDE 0.9% FLUSH 10 ML FLUSH IV FLUSH SCH ×2 (09:00→20:58)
[2017-06-01] MEDS: LORazepam 0.5 MG TAB PO SCH (09:00)
[2017-06-01] MEDS: RESP: ALBUTEROL 2.5 MG/IPRATROPIUM 0.5 MG NEB (SCH) NEB (09:07)
[2017-06-01] MEDS: CARVEDILOL 12.5 MG TAB PO SCH ×2 (10:21→20:58)
[2017-06-01] MEDS: busPIRone HCL 10 MG TAB PO SCH ×2 (10:22→21:01)
[2017-06-01] MEDS: FAMOTIDINE 20 MG TAB PO SCH ×2 (10:23→20:58)
[2017-06-01] MEDS: ASPIRIN EC 81 MG TABEC PO SCH (10:23)
[2017-06-01] MEDS: HEPARIN SODIUM - SQ 10,000 UNITS/ML VIAL SQ SCH ×2 (10:24→20:59)
[2017-06-01] MEDS: TICAGRELOR 90 MG TAB PO SCH ×2 (10:24→21:02)
[2017-06-01] MEDS: FLUCONAZOLE 100 MG TAB PO SCH (10:24)
[2017-06-01] MEDS: NYSTATIN SUSP 500,000 U/5 ML CUP SWISH-SWAL SCH ×4 (10:24→20:59)
--- NOTE | 2017-06-01 13:17 | HHI.IDPN ---
Subjective Subjective Remarks Patient is a 81-year-old female, presented to the hospital complaining of cough , shortness of breath and chest tightness for one week. She was bringing up some whitish phlegm. She had worsening shortness of breath and presented to the hospital for further evaluation and treatment. She has had chills the night of admission. No nausea or vomiting or any urinary complaints. On presentation she ruled in for an LA. She had high grade AV block, and underwent emergent cardiac catheterization. She had some interventions done, and she also had placement of a temporary pacemaker. He ended up getting intubated. She's been intubated since. She had the fever initially, and that has improved, however since yesterday she started having fevers again. She apparently was having a lot of secretions, and required bronchoscopy yesterday. She is febrile today. She is awake and responding. She is on the vent. Infectious disease consultation has been requested to evaluate the patient. Notes reviewed Afebrile Very weak On FM Lethargic compared to yesterday Off Abx CXR stable On 5L NC Antibiotics None Lines PIV Past Medical History HTN DM LA CKD stage 3 Past Surgical History Heart stents Cholecystectomy Hysterectomy Allergies: Coded Allergies: simvastatin (Unverified Allergy, Severe, ARMS SWELL, 05/29/17) Objective . Vital Signs Date Time Temp Pulse Resp B/P Pulse Ox O2 Delivery O2 Flow Rate FiO2 06/01/17 12:00 98.0 57 30 89 06/01/17 12:00 57 06/01/17 11:00 59 06/01/17 10:00 60 06/01/17 09:00 55 06/01/17 08:00 97.9 55 28 81 06/01/17 08:00 55 06/01/17 07:00 57 06/01/17 06:00 58 06/01/17 04:00 56 06/01/17 04:00 98.1 56 18 118/57 94 06/01/17 02:00 58 06/01/17 00:00 98.3 63 16 133/79 94 06/01/17 00:00 63 05/31/17 22:00 66 05/31/17 20:17 93 Nasal Cannula 5.00 05/31/17 20:00 98.6 62 18 143/66 93 05/31/17 20:00 62 05/31/17 18:00 69 05/31/17 17:00 57 05/31/17 16:00 98.3 61 28 96 05/31/17 16:00 61 05/31/17 15:00 63 05/31/17 14:00 59 05/31/17 05/31/17 06/01/17 14:59 22:59 06:59 Intake Total 250 ml 240 ml 120 ml Output Total 750 ml Balance -500 ml 240 ml 120 ml Intake Oral 250 ml 240 ml 120 ml IV Total 0 ml 0 ml Output Urine Total 750 ml # Voids 3 2 # Bowel Movements 0 0 . Laboratory Tests Test 05/31/17 04:44 White Blood Count 10.9 TH/MM3 Red Blood Count 2.91 MIL/MM3 Hemoglobin 8.3 GM/DL Hematocrit 24.7 % Mean Corpuscular Volume 85.1 FL Mean Corpuscular Hemoglobin 28.4 PG Mean Corpuscular Hemoglobin 33.4 % Concent Red Cell Distribution Width 15.9 % Platelet Count 323 TH/MM3 Mean Platelet Volume 7.3 FL Laboratory Tests Test 05/31/17 04:44 Sodium Level 134 MEQ/L Potassium Level 3.8 MEQ/L Chloride Level 95 MEQ/L Carbon Dioxide Level 29.9 MEQ/L Anion Gap 9 MEQ/L Blood Urea Nitrogen 51 MG/DL Creatinine 1.27 MG/DL Estimat Glomerular Filtration 41 ML/MIN Rate Random Glucose 133 MG/DL Calcium Level 9.1 MG/DL Total Bilirubin 0.7 MG/DL Aspartate Amino Transf 24 U/L (AST/SGOT) Alanine Aminotransferase 25 U/L (ALT/SGPT) Alkaline Phosphatase 67 U/L Total Protein 6.9 GM/DL Albumin 2.9 GM/DL Imaging Chest X-Ray 05/31/17 06 Signed Impressions: Service Date/Time: May 03:49 - CONCLUSION: Persistent bilateral patchy infiltrates. Arik Cosby MD Chest X-Ray 05/30/17599 Signed Impressions: Service Date/Time: Tuesday, May 30, 2017 04:34 - CONCLUSION: Persistent and stable bilateral mid and lower lung infiltrates. Arik Cosby MD Chest X-Ray 05/28/17 06 Signed Impressions: Service Date/Time: Sunday, May 28, 2017 04:28 - CONCLUSION: Increasing bilateral infiltrates mid and lower lungs, and interval development of consolidation in the left lower lung. Arik Cosby MD Chest X-Ray 05/27/17599 Signed Impressions: Service Date/Time: Saturday, May 27, 2017 03:19 - CONCLUSION: Slightly improved bilateral patchy airspace disease.. Shabbir Benjamin MD Chest X-Ray 05/26/17 06 Signed Impressions: Service Date/Time: Friday, May 26, 2017 03:30 - CONCLUSION: Stable bilateral patchy consolidation. Shabbir Benjamin MD Chest CT 05/26/17 0000 Signed Impressions: Service Date/Time: Friday, May 26, 2017 09:31 - CONCLUSION: 1. Multiple patchy areas of consolidation of both lungs which could indicate pulmonary edema. 2. Small bilateral pleural effusions right greater than left. 3. Mediastinal adenopathy and questionable mild hilar adenopathy. 4. Mild cardiomegaly. Bandar Pruitt MD Last 72 hours Impressions Chest X-Ray 05/22/17599 Signed Impressions: Service Date/Time: Monday, May 22, 2017 03:32 - CONCLUSION: No significant change has occurred. Sterling Guevara MD Chest X-Ray 05/21/17599 Signed Impressions: Service Date/Time: Sunday, May 21, 2017 02:53 - CONCLUSION: Improved aeration of the left lower lobe. Sterling Guevara MD Chest X-Ray 05/20/17 06 Signed Impressions: Service Date/Time: Saturday, May 20, 2017 03:36 - CONCLUSION: 1. Patchy alveolar disease characteristic of edema or pneumonia. There has been no significant change when compared to the prior exam. Chano Bullock MD Chest X-Ray 05/20/17 Signed Impressions: Service Date/Time: Saturday, May 20, 2017 15:35 - CONCLUSION: No significant change. Bilateral infiltrates persist. No pneumothorax or other acute complication seen post bronchoscopy. David Rodriguez MD Chest X-Ray 05/20/17 Signed Impressions: Service Date/Time: Saturday, May 20, 2017 13:49 - CONCLUSION: 1. Patchy bilateral pulmonary infiltrates persist without significant change. David Rodriguez MD Physical Exam GENERAL: Very weak, and looks tired, on FM. Awakens easily and answered all my questions SKIN: Warm and dry. No generalized rash HEAD: Atraumatic. Normocephalic. No temporal wasting, or tenderness. EYES: [place] conjunctiva. No petechia or hemorrhage. No scleral icterus. No injection or drainage. EARS, NOSE AND THROAT: Nose without bleeding or purulent nasal discharge. white coating on tongue, mild thrush R buccal mucosa NECK: Trachea midline. Supple and not tender, no meningeal signs CARDIOVASCULAR: Regular rate and rhythm. No murmurs, rubs or gallops heard RESPIRATORY: Decreased BS at bases ABDOMEN: Soft, not distended, not tender. Bowel sounds present and normoactive. No guarding. No rebound. No organomegaly. EXTREMITIES: No clubbing, cyanosis, or edema. No calf tenderness. Well perfused and warm. NEUROLOGICAL: Lethargic but awakens easily PSYCHIATRIC: cooperative. LINE: No evidence of infection : Garcia in place, urine looks clear Assessment & Plan Remarks IMPRESSION Fever likely due to VAP, better - one low grade temps last 24 hours, ?due to atelectasis - S/P PNA RX Initial presentation with CAP, has been on vent since 05/17 LA, S/P intervention Respiratory failure, extubated 05/26, sleepy today, ?getting tired RECOMMENDATION Diflucan for oral thrush Monitor off Abx Follow temps Monitor progress Monitor respiratory status D/W Nani Adams MD Jun 01, 2017 13:17
[2017-06-01 14:34] LABS: AUTOMATED NEUTROPHIL # 10.5 TH/MM3 (1.8-7.7); BASOPHIL # 0.1 TH/MM3 (0-0.2); BASOPHIL % 0.5 % (0.0-2.0); EOSINOPHIL # 0.2 TH/MM3 (0-0.4); EOSINOPHIL % 1.5 % (0.0-4.0); HEMATOCRIT 25.2 % (35.0-46.0); HEMO FLAGS DIFF FINAL; LYMPH % 6.7 % (9.0-44.0); LYMPHOCYTE # 0.8 TH/MM3 (1.0-4.8); MEAN CELL VOLUME 84.3 FL (80.0-100.0); MEAN CORPUSCULAR HEMOGLOBIN 27.4 PG (27.0-34.0); MEAN CORPUSCULAR HGB CONC 32.5 % (32.0-36.0); MONO % 4.9 % (0.0-8.0); NEUT % 86.4 % (16.0-70.0); PLATELET COUNT 340 TH/MM3 (150-450); RED BLOOD COUNT 2.99 MIL/MM3 (4.00-5.30); RED CELL DISTRIBUTION WIDTH 15.9 % (11.6-17.2); WHITE BLOOD COUNT 12.1 TH/MM3 (4.0-11.0)
[2017-06-01 14:56] LABS: ALT (GPT) 25 U/L (10-53); ANION GAP 8 MEQ/L (5-15); AST (GOT) 21 U/L (15-37); BICARBONATE 29.6 MEQ/L (21.0-32.0); BLOOD UREA NITROGEN 44 MG/DL (7-18); CHLORIDE 99 MEQ/L (98-107); GLOMERULAR FILTRATION RATE 34 ML/MIN (>89); SODIUM (NA) 137 MEQ/L (136-145)
[2017-06-01 14:58] LABS: ALKALINE PHOSPHATASE 69 U/L (45-117); TOTAL BILIRUBIN ADULT 0.8 MG/DL (0.2-1.0)
[2017-06-01] MEDS ORDERED: methylPREDNISolone SOD SUCC 125 MG/2 ML VIAL IV PUSH ONE (15:15)
[2017-06-01] MEDS ORDERED: BUMETANIDE INJ 1 MG/4 ML VIAL IV PUSH ONE (15:30)
[2017-06-01] MEDS: RESP: ALBUTEROL 2.5 MG/3 ML NEB (PRN) NEB (15:43)
--- NOTE | 2017-06-01 16:07 | RADRPT ---
EXAM DATE/TIME: 06/01/2017 15:33 [facility] COMPARISON: CHEST SINGLE AP, May 31, 2017, 3:49. INDICATIONS : Shortness of breath. Respiratory failure. MEDICAL HISTORY : Cardiovascular disease. Hypertension SURGICAL HISTORY : Hysterectomy. Cholecystectomy. ENCOUNTER: Subsequent ACUITY: 2 days PAIN SCORE: 0/10 LOCATION: Bilateral chest FINDINGS: The examination demonstrates persistent, diffuse bilateral infiltrates concerning for pneumonia. The heart is normal in size. There is no significant effusion. The visualized bony structures are grossly intact. CONCLUSION: 1. Continued bilateral infiltrates concerning for pneumonia. Stable compared to prior. Ronaldo Mitchell MD on June 01, 2017 at 16:05 Board Certified Radiologist. This report was verified electronically.
[2017-06-01 16:41] LABS: BLOOD, URINE NEG (NEG); GLUCOSE,URINE NEG (NEG); GRANULAR CAST, URINE 11 /lpf; HYALINE CAST, URINE 2 /lpf (RARE); KETONE, URINE NEG (NEG); MUCUS URINE FEW /lpf (OCC); NITRITE,URINE NEG (NEG); PH, URINE 5.5 (5.0-8.5); SQUAMOUS EPITHELIAL CELL URINE 1 /hpf (0-5); URINE COLOR YELLOW (YELLW/STRAW)
[2017-06-01 16:48] LABS: COMMENT (UR) CATH-CULT NOT IND; CULTURE IF INDICATED CATH CULTURE NOT IND
--- NOTE | 2017-06-01 17:33 | HHI.PR ---
Subjective Remarks Deferred entry - patient seen earlier at 15:00 hrs. As per RN patient more sleepy patient denies cp, feels sob unable to give more details due to respiratory distress on 50% Ventimask tachypneic afebrile Objective Vitals Vital Signs Date Time Temp Pulse Resp B/P Pulse Ox O2 Delivery O2 Flow Rate FiO2 06/01/17 16:00 59 06/01/17 16:00 98.2 59 23 124/57 92 06/01/17 15:44 95 Venturi Mask 6.00 50 06/01/17 15:00 54 06/01/17 14:00 57 06/01/17 13:00 57 06/01/17 12:00 98.0 57 30 89 06/01/17 12:00 57 06/01/17 11:00 59 06/01/17 10:00 60 06/01/17 09:00 55 06/01/17 08:00 97.9 55 28 81 06/01/17 08:00 55 06/01/17 07:00 57 06/01/17 06:00 58 06/01/17 04:00 56 06/01/17 04:00 98.1 56 18 118/57 94 06/01/17 02:00 58 06/01/17 00:00 98.3 63 16 133/79 94 06/01/17 00:00 63 05/31/17 22:00 66 05/31/17 20:17 93 Nasal Cannula 5.00 05/31/17 20:00 98.6 62 18 143/66 93 05/31/17 20:00 62 05/31/17 18:00 69 I/O 05/31/17 05/31/17 05/31/17 06/01/17 06/01/17 06/01/17 07:00 15:00 23:00 07:00 15:00 23:00 Intake Total 600 ml 250 ml 240 ml 120 ml 500 ml Output Total 550 ml 750 ml Balance 50 ml -500 ml 240 ml 120 ml 500 ml Intake Oral 600 ml 250 ml 240 ml 120 ml 500 ml IV Total 0 ml 0 ml 0 ml Output Urine Total 550 ml 750 ml # Voids 3 2 3 # Bowel Movements 0 0 0 Result Diagram: 06/01/17 1338 06/01/17 1353 Imaging Last Impressions Chest X-Ray 06/01/17 0000 Signed Impressions: Service Date/Time: Thursday, June 01, 2017 15:33 - CONCLUSION: 1. Continued bilateral infiltrates concerning for pneumonia. Stable compared to prior. Ronaldo Mitchell MD Chest CT 05/26/17 0000 Signed Impressions: Service Date/Time: Friday, May 26, 2017 09:31 - CONCLUSION: 1. Multiple patchy areas of consolidation of both lungs which could indicate pulmonary edema. 2. Small bilateral pleural effusions right greater than left. 3. Mediastinal adenopathy and questionable mild hilar adenopathy. 4. Mild cardiomegaly. Bandar Pruitt MD Objective Remarks GENERAL: Well-nourished, well-developed patient, awake, on ventimas, tachypneic and moderate respiratory distress on 50% venturi mask. Coughing frequently. SKIN: Warm and dry. Pressure injury to sacral area HEAD: Normocephalic. EYES: Pupils are equally round and reactive to light and accommodation. No scleral icterus. No injection or drainage. NECK: Supple, trachea midline. No JVD or lymphadenopathy. CARDIOVASCULAR: RRR. S1, S2. No S4. Without murmur RESPIRATORY: Diffuse BL expiratory wheezing heard especially when coughing. GASTROINTESTINAL: Abdomen soft, protuberant, non-tender, hypoactive bowel sounds. Thrush lateral distal tongue MUSCULOSKELETAL: Trace nonpitting lower extremity edema bilaterally. BACK: Nontender without obvious deformity. NEURO: Alert oriented. normal speech. Moves all 4 extremity spontaneously to command. Medications and IVs Current Medications Medications (Trade) Dose Ordered Sig/Renaldo Route Start Time Stop Time Status Last Admin (NS Flush) 2 ml UNSCH PRN IV FLUSH 05/17/17 00:30 (NS Flush) 2 ml BID IV FLUSH 05/17/17 09:00 06/01/17 09:00 (Narcan Inj) 0.4 mg UNSCH PRN IV 05/17/17 00:30 Miscellaneous Information Patient in critical care unit? Ass... [id number] .XX 05/17/17 02:45 (Norvasc) 5 mg BID PO 05/17/17 09:00 Hold 05/17/17 07:46 (Buspar) 30 mg BID PO 05/17/17 09:00 06/01/17 10:22 (Cardizem Cd) 240 mg DAILY PO 05/17/17 09:00 Hold 05/17/17 07:48 (Glucophage) 750 mg BIDPC PO 05/17/17 09:00 Hold 05/17/17 16:32 (Cozaar) 100 mg DAILY PO 05/17/17 09:00 Hold 05/17/17 07:47 (Hydrodiuril) 12.5 mg DAILY PO 05/17/17 09:00 Hold 05/17/17 07:48 (Pill Splitter) 1 ea UNSCH PRN OTHER 05/17/17 05:30 (Nitrostat Sl) 0.4 mg Q5M PRN SL 05/17/17 09:15 05/17/17 09:28 (Tessalon) 100 mg TID PRN PO 05/17/17 09:15 05/31/17 17:15 (Lipitor) 80 mg HS PO 05/17/17 21:00 05/31/17 21:07 (Peridex 0.12% Liq) 15 ml BID@08,20 MT 05/18/17 20:00 05/31/17 21:05 (Prinivil) 10 mg Q24H PO 05/18/17 19:15 Hold 05/24/17 21:27 (Tylenol) 650 mg Q6H PRN PO 05/20/17 22:00 05/30/17 09:34 (D50w (Vial) Inj) 50 ml UNSCH PRN IV 05/22/17 13:15 (Glucagon Inj) 1 mg UNSCH PRN OTHER 05/22/17 13:15 Nystatin 5 ml 5 ml QID SWISH-SWAL 05/22/17 21:00 06/01/17 12:54 Potassium Chloride 100 ml @ 50 mls/hr Q2H PRN IV 05/23/17 07:30 (KCl 20 Meq Premix Inj) 100 ml @ 50 mls/hr Q2H PRN IV 05/23/17 07:30 Potassium Bicarb/ Potassium Chloride 50 meq 50 meq UNSCH PRN PO 05/23/17 07:30 05/30/17 05:05 Potassium Chloride 100 ml @ 25 mls/hr UNSCH PRN IV 05/23/17 07:30 Potassium Chloride 100 ml @ 50 mls/hr Q2H PRN IV 05/23/17 07:30 (Magnesium Sulfate Inj/NS Inj) 100 ml @ 50 mls/hr UNSCH PRN IV 05/23/17 07:30 Magnesium Oxide 800 mg 800 mg UNSCH PRN PO 05/23/17 07:30 (Magnesium Sulfate Inj/NS Inj) 100 ml @ 50 mls/hr UNSCH PRN IV 05/23/17 07:30 Potassium Phosphate 2000 mg 2,000 mg Q4H PRN PO 05/23/17 07:30 (Sodium Phosphate Inj/NS 250 ml Inj) 250 ml @ 42 mls/hr UNSCH PRN IV 05/23/17 07:30 05/23/17 14:50 Potassium Phosphate 2000 mg 2,000 mg UNSCH PRN PO/TUBE 05/23/17 07:30 (Potassium Phosphate Inj/NS 250 ml Inj) 260 ml @ 42 mls/hr UNSCH PRN IV 05/23/17 07:30 (Tears Naturale Opth Soln) 1 drop Q8HR EACH EYE 05/24/17 14:00 06/01/17 14:00 (NovoLOG SUPPLEMENTAL SCALE) 1 Q6HR SQ 05/24/17 12:00 06/01/17 12:00 (Apresoline Inj) 10 mg Q1HR PRN IV PUSH 05/24/17 11:30 05/30/17 06:38 (Nitroglycerin 2% Oint) 2 inch Q6HR PRN TOPICAL 05/24/17 11:30 05/25/17 09:01 (Heparin Inj) 5,000 units Q12HR SQ 05/24/17 21:00 06/01/17 10:24 (Brilinta) 90 mg BID PO 05/24/17 21:00 06/01/17 10:24 (Ecotrin Ec) 81 mg DAILY PO 05/25/17 09:00 06/01/17 10:23 (Bumex Inj) 1 mg BID@,18 IV PUSH 05/25/17 18:00 Hold 05/28/17 10:00 (Ativan) 0.5 mg BID PO 05/25/17 09:30 05/31/17 21:06 (Robitussin Liq) 200 mg Q6H PRN PO 05/27/17 00:45 05/31/17 22:15 (Dulcolax Supp) 10 mg DAILY PRN RECTAL 05/27/17 07:00 (Coreg) 12.5 mg BID PO 05/27/17 09:00 06/01/17 10:21 (Apresoline) 50 mg Q8H PO 05/27/17 13:00 06/01/17 12:54 (Ambien) 5 mg HS PRN PO 05/27/17 21:30 05/31/17 21:07 (Catapres) 0.3 mg Q8H PO 05/28/17 17:00 06/01/17 16:42 (Pepcid) 10 mg BID PO 05/29/17 09:00 06/01/17 10:23 (Diflucan) 100 mg DAILY PO 05/30/17 11:00 06/04/17 10:59 06/01/17 10:24 (SoluMEDROL INJ) 40 mg Q6H IV PUSH 06/01/17 22:00 A/P Problem List: (1) Acute hypoxemic respiratory failure ICD Code: J96.01 Status: Acute (2) Respiratory distress ICD Code: R06.00 Status: Acute (3) Ischemic cardiomyopathy ICD Code: I25.5 Status: Acute (4) Acute diastolic heart failure ICD Code: I50.31 Status: Acute (5) EZ (acute kidney injury) ICD Code: N17.9 Status: Acute (6) CKD (chronic kidney disease), stage III ICD Code: N18.3 Status: Chronic (7) Pulmonary edema ICD Code: J81.1 Status: Acute (8) High degree atrioventricular block ICD Code: I44.39 Status: Resolved (9) CAD (coronary artery disease) ICD Code: I25.10 Status: Acute (10) NSTEMI (non-ST elevated myocardial infarction) ICD Code: I21.4 Status: Resolved (11) Encephalopathy acute ICD Code: G93.40 Status: Acute Assessment and Plan NEURO/Psych: Depression disorder Anxiety disorder Chronic benzodiazepine use Initially Ativan was continued and sinuses discontinued on 05/25/17. I will hold any sedatives given that patient is lethargic and more sleepy today. Acetaminophen 650 mg by mouth every 6 hours when necessary fever/pain Respiratory: Acute hypercapnic hypoxic Respiratory failure HCAP Pulmonary edema (Cardiogenic vs ARDS) Extubated 05/26. On NC. Cannot tolerate BiPAP Albuterol/Atrovent aerosols every 6 hours with albuterol aerosols every 2 hours PRN, EzPAP, Acapella, IS s/p dexamethasone 4 mg IV every 6 hours times x [address] chest 05/26: Bilateral extensive infiltrates pulmonary edema Cardiogenic vs ARDS, doubt infection Observe off ABX CXR 05/30 stable to slightly improved 06/01 patient is requiring more oxygen and is currently on Ventimask, tachypneic with respiratory distress. There is bilateral expiratory wheezing on exam. I will give 125 mg IV once of Solu-Medrol and start on scheduled Solu-Medrol 40 mg every 6 hours IV. Chest straight obtained on 05/31 shows persistent bilateral patchy infiltrates. Patient is a afebrile and is being followed by infectious disease who recommends to monitor off antibiotics. Given persistence of bilateral patchy infiltrates I will give Bumex 1 mg IV once. Check ABG. Consider Bipap if there is no improvement on respiratory status. CV: NSTEMI Pulmonary edema High degree AV block-now resolved Dyslipidemia Hypertension 05/17 Status post angioplasty and stents of the distal LAD and mid LAD, and angioplasty and stenting of the proximal/ostial RCA Echocardiogram revealed EF 60-65%. Asymmetric septal hypertrophy. Trace MR. Carvedilol to 12.5 mg by mouth twice a day for hypertension 05/26. Holding lisinopril 10 mg daily due to EZ Clonidine 0.3 mg q8 and hydralazine 50 mg ill grams 3 times a day Temporary Pacemaker is been removed 05/18 Aspirin 81 mg by mouth daily, Ticagrelor 90 mg by mouth twice a day for stent Atorvastatin 80 mg by mouth daily for dyslipidemia. Holding fish oil/ cholecalciferol 1000/100 3 tablets twice a day DCd Bumex gtt 0.5 mg per hour due to creat increasing (Home medications are losartan/hctz 300 mg/12.5 mg daily with additional hydrochlorothiazide 12.5 mg additional daily. Hypertension along with metoprolol 50 mg by mouth twice a day and clonidine 0.1 mg by mouth twice a day and Norvasc 5 mg twice a day and diltiazem 240 mg by mouth daily and hydralazine 10 mg 3 times a day) 06/01 Will give Bumex as above. ID: Possible HCAP, but infiltrates are most likely from pulm edema Oral thrush Bilateral infiltrate on chest x-ray most likely from pulmonary edema (ARDS vs cardiogenic)-these infiltrates present on CXR immediately after intubation, so VAP is unlikely. ALL cultures negative, doubt infectious etiology Monitor off all antibiotics. ID Dr. Godinez On nystatin swish and spit every 6 hours, Diflucan added 05/30 8 fiberoptic bronchoscopy with BAL no growth Legionella, pneumococcal, influenza A and B antigens- results negative Repeat urine and blood cultures no growth Endo Diabetes mellitus Insulin sliding scale with NovoLog, low dose regimen. Holding metformin 750 mg twice a day/home medication Renal Chronic kidney disease stage 3 - Creatinine 1.27 - 1.48, improving. UO -1.7L in 24 hours - Monitor I's and O 06/01 replace Garcia catheter since patient has a decubitus wound and is in ICU getting diuretics. GI prophylaxis Pepcid DVT- Teds SCDs heparin subcutaneous Dispo: Discussed with family at bedside, and ST[employer]ER at bedside. 35 minutes of critical care time spent on patient care. Discharge Planning Continue to monitor in intensive care unit. Patient still on 50% Ventimask and on respiratory distress. Damon Orellana MD Jun 01, 2017 17:33
[2017-06-01 17:37] LABS: BLOOD GAS BASE EXCESS 3.4 mmol/L (-2-2); BLOOD GAS CARBOXYHEMOGLOBIN 2.1 % (0-4); BLOOD GAS HCO3 27 mmol/L (22-26); BLOOD GAS O2 HGB SATURATION 90 % (90-100); BLOOD GAS PCO2 37 mmHg (38-42); BLOOD GAS PO2 67 mmHg (61-120); BLOOD GAS TOTAL HGB 8.6 G/DL (12.0-16.0); TEMP CORR TO 98.6
[2017-06-01 17:38] LABS: CRITICAL VALUE NO; DRAW SITE RT RADIAL; FIO2 50 %; LITER FLOW 6 L/M; NUMBER OF ARTERIAL PUNCTURES 1; OXYGEN DEVICE VENT; STAT NO; ULNAR PULSE PRESENT
--- NOTE | 2017-06-01 19:22 | HHI.PR ---
Subjective Remarks Seems weak and on 50 % Fio2. Has a cough. No fever. Output was OK. CXR still shows bilateral infiltrates Objective Vital Signs Date Time Temp Pulse Resp B/P Pulse Ox O2 Delivery O2 Flow Rate FiO2 06/01/17 18:00 56 06/01/17 17:00 54 06/01/17 16:00 59 06/01/17 16:00 98.2 59 23 124/57 92 06/01/17 15:44 95 Venturi Mask 6.00 50 06/01/17 15:00 54 06/01/17 14:00 57 06/01/17 13:00 57 06/01/17 12:00 98.0 57 30 89 06/01/17 12:00 57 06/01/17 11:00 59 06/01/17 10:00 60 06/01/17 09:00 55 06/01/17 08:00 97.9 55 28 81 06/01/17 08:00 55 06/01/17 07:00 57 06/01/17 06:00 58 06/01/17 04:00 56 06/01/17 04:00 98.1 56 18 118/57 94 06/01/17 02:00 58 06/01/17 00:00 98.3 63 16 133/79 94 06/01/17 00:00 63 05/31/17 22:00 66 05/31/17 20:17 93 Nasal Cannula 5.00 05/31/17 20:00 98.6 62 18 143/66 93 05/31/17 20:00 62 I/O 05/31/17 05/31/17 05/31/17 06/01/17 06/01/17 06/01/17 06:59 14:59 22:59 06:59 14:59 22:59 Intake Total 600 ml 250 ml 240 ml 120 ml 500 ml Output Total 550 ml 750 ml Balance 50 ml -500 ml 240 ml 120 ml 500 ml Intake Oral 600 ml 250 ml 240 ml 120 ml 500 ml IV Total 0 ml 0 ml 0 ml Output Urine Total 550 ml 750 ml # Voids 3 2 3 # Bowel Movements 0 0 0 Result Diagram: 06/01/17 1338 06/01/17 1353 Objective Remarks GENERAL: This averagely built elderly lady who is sitting upright, pale and mildly dyspneic. HEENT: Head normocephalic. Pupils are reactive. Tongue is moist. Throat was clear. NECK: Supple. No venous distension. No thyromegaly or lymphadenopathy. CHEST: Distant breath sounds with occasional wheezes in the upper lung [place]. There are crackles heard at both lung bases. HEART: The heart sounds are irregular, S1-S2. No murmur. No S3. ABDOMEN: Abdomen is soft, protuberant without masses. No organomegaly or tenderness. Bowel sounds are active. EXTREMITIES: No edema. Mild varicosities. Reflexes are 1 +with no gross motor deficits. NEURO: Cranial nerves grossly intact. SKIN: Skin was warm and dry. Assessment and Plan Assessment and Plan IMPRESSION 1. Acute respiratory failure, resolving. 2. Bilateral pulmonary infiltrates with pulmonary edema versus atypical pneumonia. 3. Status post coronary artery stenting with acute coronary syndrome. 4. History of diabetes mellitus type 2. 5. Hypertension and hyperlipidemia. 6. High degree AV block, resolved. Plan : 1. Wean o2 to keep sat >92. 2. Continue diuretics daily. 3. IS at bedside q3h. 4. Nebs qid , duoneb. 5. CBC,BMP in am 6. Taper solumedrol to 40 mg q8h 7. Bipap at HS 12/5 CM, 35 % Fio2 Missy Armstrong MD Jun 01, 2017 19:22
[2017-06-01] MEDS: ATORVASTATIN 10 MG TAB PO SCH (21:00)
[2017-06-01] MEDS ORDERED: methylPREDNISolone SOD SUCC 40 MG/1 ML VIAL IV PUSH SCH (22:00)
[2017-06-02] VITALS (20 sets, daily range): BP systolic 136–174; BP diastolic 60–77; PULSE 49–72; RESP 16–28; TEMP 97.9–98.9; O2SAT 90–100
[2017-06-02] MEDS: cloNIDine HCL 0.3 MG TAB PO SCH ×3 (00:20→17:21)
[2017-06-02] MEDS: hydrALAZINE HCL 50 MG TAB PO SCH ×3 (04:52→21:21)
[2017-06-02] MEDS: ARTIFICIAL TEARS OPTH SOLN 15 ML BTL EACH EYE SCH ×3 (04:55→21:43)
[2017-06-02] MEDS: methylPREDNISolone SOD SUCC 40 MG/1 ML VIAL IV PUSH SCH ×3 (04:55→21:23)
[2017-06-02] MEDS: INSULIN ASPART SUPPLEMENTAL SCALE SQ SCH ×4 (06:00→17:30)
[2017-06-02 07:07] LABS: AUTOMATED NEUTROPHIL # 8.2 TH/MM3 (1.8-7.7); BASOPHIL % 0.1 % (0.0-2.0); HEMATOCRIT 26.8 % (35.0-46.0); HEMO FLAGS DIFF FINAL; LYMPH % 6.3 % (9.0-44.0); LYMPHOCYTE # 0.6 TH/MM3 (1.0-4.8); MEAN CELL VOLUME 84.4 FL (80.0-100.0); MEAN CORPUSCULAR HEMOGLOBIN 27.5 PG (27.0-34.0); MEAN CORPUSCULAR HGB CONC 32.6 % (32.0-36.0); MONO % 1.1 % (0.0-8.0); NEUT % 92.5 % (16.0-70.0); PLATELET COUNT 343 TH/MM3 (150-450); RED BLOOD COUNT 3.18 MIL/MM3 (4.00-5.30); WHITE BLOOD COUNT 8.9 TH/MM3 (4.0-11.0)
[2017-06-02 07:26] LABS: ANION GAP 9 MEQ/L (5-15); AST (GOT) 21 U/L (15-37); BICARBONATE 27.6 MEQ/L (21.0-32.0); BLOOD UREA NITROGEN 52 MG/DL (7-18); CHLORIDE 98 MEQ/L (98-107); GLOMERULAR FILTRATION RATE 37 ML/MIN (>89); MAGNESIUM 2.5 MG/DL (1.5-2.5); POTASSIUM 4.1 MEQ/L (3.5-5.1); SODIUM (NA) 135 MEQ/L (136-145)
[2017-06-02 07:30] LABS: ALKALINE PHOSPHATASE 73 U/L (45-117); ALT (GPT) 26 U/L (10-53); TOTAL BILIRUBIN ADULT 0.7 MG/DL (0.2-1.0)
[2017-06-02] MEDS: CHLORHEXIDINE 0.12% (ORAL KIT) 15 ML CUP MT SCH ×2 (08:00→20:00)
[2017-06-02] MEDS: RESP: ALBUTEROL 2.5 MG/3 ML NEB (PRN) NEB ×2 (08:22→14:56)
[2017-06-02] MEDS: FAMOTIDINE 20 MG TAB PO SCH ×2 (08:53→21:21)
[2017-06-02] MEDS: ASPIRIN EC 81 MG TABEC PO SCH (08:53)
[2017-06-02] MEDS: NYSTATIN SUSP 500,000 U/5 ML CUP SWISH-SWAL SCH ×4 (08:53→21:23)
[2017-06-02] MEDS: CARVEDILOL 12.5 MG TAB PO SCH (08:54)
[2017-06-02] MEDS: busPIRone HCL 10 MG TAB PO SCH ×2 (08:54→21:22)
[2017-06-02] MEDS: TICAGRELOR 90 MG TAB PO SCH ×2 (08:54→21:22)
[2017-06-02] MEDS: FLUCONAZOLE 100 MG TAB PO SCH (08:55)
[2017-06-02] MEDS: SODIUM CHLORIDE 0.9% FLUSH 10 ML FLUSH IV FLUSH SCH ×2 (08:58→21:21)
[2017-06-02] MEDS: HEPARIN SODIUM - SQ 10,000 UNITS/ML VIAL SQ SCH ×2 (08:59→21:23)
[2017-06-02] MEDS: INSULIN DETEMIR 100 UNITS/ML VIAL SQ SCH ×2 (10:30→21:00)
--- NOTE | 2017-06-02 14:40 | HHI.PR ---
Subjective Remarks Patient is more alert. States sob and cough are much improved patient is down to nasal canula afebrile Objective Vitals Vital Signs Date Time Temp Pulse Resp B/P Pulse Ox O2 Delivery O2 Flow Rate FiO2 06/02/17 14:00 69 06/02/17 13:00 70 06/02/17 12:00 98.1 69 28 144/67 92 06/02/17 12:00 69 06/02/17 11:00 70 06/02/17 10:00 64 06/02/17 09:00 68 06/02/17 08:27 92 Nasal Cannula 6.00 06/02/17 08:00 98.0 72 20 174/77 91 06/02/17 08:00 72 06/02/17 07:00 58 06/02/17 06:00 49 06/02/17 04:00 98.3 58 16 162/70 100 06/02/17 04:00 58 06/02/17 02:00 59 06/02/17 00:00 97.9 61 18 136/60 90 06/02/17 00:00 61 06/01/17 22:00 60 06/01/17 20:10 95 Venturi Mask 50 06/01/17 20:00 61 06/01/17 20:00 98.7 61 17 166/70 93 06/01/17 18:00 56 06/01/17 17:00 54 06/01/17 16:00 59 06/01/17 16:00 98.2 59 23 124/57 92 06/01/17 15:44 95 Venturi Mask 6.00 50 06/01/17 15:00 54 I/O 06/01/17 06/01/17 06/01/17 06/02/17 06/02/17 06/02/17 07:00 15:00 23:00 07:00 15:00 23:00 Intake Total 120 ml 500 ml 240 ml 120 ml 500 ml Output Total 1200 ml 350 ml 950 ml Balance 120 ml 500 ml -960 ml -230 ml -450 ml Intake Oral 120 ml 500 ml 240 ml 120 ml 500 ml IV Total 0 ml 0 ml 0 ml Output Urine Total 1200 ml 350 ml 950 ml # Voids 2 3 # Bowel Movements 0 0 0 Result Diagram: 06/02/1762506/02/17625 Imaging Last 72 hours Impressions Chest X-Ray 06/01/17 0000 Signed Impressions: Service Date/Time: Thursday, June 01, 2017 15:33 - CONCLUSION: 1. Continued bilateral infiltrates concerning for pneumonia. Stable compared to prior. Ronaldo Mitchell MD Chest X-Ray 05/31/17 0600 Signed Impressions: Service Date/Time: May 03:49 - CONCLUSION: Persistent bilateral patchy infiltrates. Arik Cosby MD Objective Remarks GENERAL: Well-nourished, well-developed patient, awake, on nasal canula, not in respiratory distress SKIN: Warm and dry. Pressure injury to sacral area HEAD: Normocephalic. EYES: Pupils are equally round and reactive to light and accommodation. No scleral icterus. No injection or drainage. NECK: Supple, trachea midline. No JVD or lymphadenopathy. CARDIOVASCULAR: RRR. S1, S2. No S4. Without murmur RESPIRATORY: Wheezing has resolved, there are some scattered crackles on both bases. GASTROINTESTINAL: Abdomen soft, protuberant, non-tender, hypoactive bowel sounds. Thrush lateral distal tongue MUSCULOSKELETAL: Trace nonpitting lower extremity edema bilaterally. BACK: Nontender without obvious deformity. NEURO: Alert oriented. normal speech. Moves all 4 extremity spontaneously to command. Medications and IVs Current Medications Medications (Trade) Dose Ordered Sig/Renaldo Route Start Time Stop Time Status Last Admin (NS Flush) 2 ml UNSCH PRN IV FLUSH 05/17/17 00:30 (NS Flush) 2 ml BID IV FLUSH 05/17/17 09:00 06/02/17 08:58 (Narcan Inj) 0.4 mg UNSCH PRN IV 05/17/17 00:30 Miscellaneous Information Patient in critical care unit? Ass... Q361D .XX 05/17/17 02:45 (Norvasc) 5 mg BID PO 05/17/17 09:00 Hold 05/17/17 07:46 (Buspar) 30 mg BID PO 05/17/17 09:00 06/02/17 08:54 (Cardizem Cd) 240 mg DAILY PO 05/17/17 09:00 Hold 05/17/17 07:48 (Glucophage) 750 mg BIDPC PO 05/17/17 09:00 Hold 05/17/17 16:32 (Cozaar) 100 mg DAILY PO 05/17/17 09:00 Hold 05/17/17 07:47 (Hydrodiuril) 12.5 mg DAILY PO 05/17/17 09:00 Hold 05/17/17 07:48 (Pill Splitter) 1 ea UNSCH PRN OTHER 05/17/17 05:30 (Nitrostat Sl) 0.4 mg Q5M PRN SL 05/17/17 09:15 05/17/17 09:28 (Tessalon) 100 mg TID PRN PO 05/17/17 09:15 05/31/17 17:15 (Lipitor) 80 mg HS PO 05/17/17 21:00 06/01/17 21:00 (Peridex 0.12% Liq) 15 ml BID@08,20 MT 05/18/17 20:00 06/01/17 20:58 (Prinivil) 10 mg Q24H PO 05/18/17 19:15 Hold 05/24/17 21:27 (Tylenol) 650 mg Q6H PRN PO 05/20/17 22:00 05/30/17 09:34 (D50w (Vial) Inj) 50 ml UNSCH PRN IV 05/22/17 13:15 (Glucagon Inj) 1 mg UNSCH PRN OTHER 05/22/17 13:15 Nystatin 5 ml 5 ml QID SWISH-SWAL 05/22/17 21:00 06/02/17 13:08 Potassium Chloride 100 ml @ 50 mls/hr Q2H PRN IV 05/23/17 07:30 (KCl 20 Meq Premix Inj) 100 ml @ 50 mls/hr Q2H PRN IV 05/23/17 07:30 Potassium Bicarb/ Potassium Chloride 50 meq 50 meq UNSCH PRN PO 05/23/17 07:30 05/30/17 05:05 Potassium Chloride 100 ml @ 25 mls/hr UNSCH PRN IV 05/23/17 07:30 Potassium Chloride 100 ml @ 50 mls/hr Q2H PRN IV 05/23/17 07:30 (Magnesium Sulfate Inj/NS Inj) 100 ml @ 50 mls/hr UNSCH PRN IV 05/23/17 07:30 Magnesium Oxide 800 mg 800 mg UNSCH PRN PO 05/23/17 07:30 (Magnesium Sulfate Inj/NS Inj) 100 ml @ 50 mls/hr UNSCH PRN IV 05/23/17 07:30 Potassium Phosphate 2000 mg 2,000 mg Q4H PRN PO 05/23/17 07:30 (Sodium Phosphate Inj/NS 250 ml Inj) 250 ml @ 42 mls/hr UNSCH PRN IV 05/23/17 07:30 05/23/17 14:50 Potassium Phosphate 2000 mg 2,000 mg UNSCH PRN PO/TUBE 05/23/17 07:30 (Potassium Phosphate Inj/NS 250 ml Inj) 260 ml @ 42 mls/hr UNSCH PRN IV 05/23/17 07:30 (Tears Naturale Opth Soln) 1 drop Q8HR EACH EYE 05/24/17 14:00 06/02/17 13:11 (NovoLOG SUPPLEMENTAL SCALE) 1 Q6HR SQ 05/24/17 12:00 06/02/17 12:00 (Apresoline Inj) 10 mg Q1HR PRN IV PUSH 05/24/17 11:30 05/30/17 06:38 (Nitroglycerin 2% Oint) 2 inch Q6HR PRN TOPICAL 05/24/17 11:30 05/25/17 09:01 (Heparin Inj) 5,000 units Q12HR SQ 05/24/17 21:00 06/02/17 08:59 (Brilinta) 90 mg BID PO 05/24/17 21:00 06/02/17 08:54 (Ecotrin Ec) 81 mg DAILY PO 05/25/17 09:00 06/02/17 08:53 (Bumex Inj) 1 mg BID@09,18 IV PUSH 05/25/17 18:00 Hold 05/28/17 10:00 (Robitussin Liq) 200 mg Q6H PRN PO 05/27/17 00:45 05/31/17 22:15 (Dulcolax Supp) 10 mg DAILY PRN RECTAL 05/27/17 07:00 (Coreg) 12.5 mg BID PO 05/27/17 09:00 Hold 06/02/17 08:54 (Apresoline) 50 mg Q8H PO 05/27/17 13:00 06/02/17 13:09 (Catapres) 0.3 mg Q8H PO 05/28/17 17:00 06/02/17 08:55 (Pepcid) 10 mg BID PO 05/29/17 09:00 06/02/17 08:53 (Diflucan) 100 mg DAILY PO 05/30/17 11:00 06/04/17 10:59 06/02/17 08:55 (SoluMEDROL INJ) 40 mg Q8HR IV PUSH 06/02/17 06:00 06/02/17 13:11 (Bumex Inj) 1 mg BID@,18 IV PUSH 06/02/17 18:00 (Levemir Inj) 5 units Q12HR SQ 06/02/17 10:30 06/02/17 10:30 Urinary Catheter: No Vascular Central Line Catheter: No A/P Problem List: (1) Acute hypoxemic respiratory failure ICD Code: J96.01 Status: Acute (2) Respiratory distress ICD Code: R06.00 Status: Acute (3) Ischemic cardiomyopathy ICD Code: I25.5 Status: Acute (4) Acute diastolic heart failure ICD Code: I50.31 Status: Acute (5) EZ (acute kidney injury) ICD Code: N17.9 Status: Acute (6) CKD (chronic kidney disease), stage III ICD Code: N18.3 Status: Chronic (7) Pulmonary edema ICD Code: J81.1 Status: Acute (8) High degree atrioventricular block ICD Code: I44.39 Status: Resolved (9) CAD (coronary artery disease) ICD Code: I25.10 Status: Acute (10) NSTEMI (non-ST elevated myocardial infarction) ICD Code: I21.4 Status: Resolved (11) Encephalopathy acute ICD Code: G93.40 Status: Resolved Assessment and Plan NEURO/Psych: Depression disorder Anxiety disorder Chronic benzodiazepine use Encephalopathy - resolved Initially Ativan was continued and sinuses discontinued on 05/25/17. 06/02 Continue to hold sedatives. Patient is more awake today. Acetaminophen 650 mg by mouth every 6 hours when necessary fever/pain Respiratory: Acute hypercapnic hypoxic Respiratory failure HCAP Pulmonary edema (Cardiogenic vs ARDS) Extubated 05/26. On NC. Cannot tolerate BiPAP Albuterol/Atrovent aerosols every 6 hours with albuterol aerosols every 2 hours PRN, EzPAP, Acapella, IS s/p dexamethasone 4 mg IV every 6 hours times x [address] chest 05/26: Bilateral extensive infiltrates pulmonary edema Cardiogenic vs ARDS, doubt infection Observe off ABX CXR 05/30 stable to slightly improved 06/02 patient is status post IV Solu-Medrol and IV Bumex for respiratory distress and acute respiratory failure with bilateral wheezing on exam. Patient respiratory status is much improved, continue IV Solu-Medrol but taper dose to every 8 hours. Continue supplemental oxygen to keep oxygen saturations more than 92%. Patient continues to be a febrile and is being followed by infectious disease recommended to monitor off antibiotics, which I agree. Bilateral patchy infiltrates could possibly be secondary to pulmonary edema. I will start the patient IV Bumex 1 mg IV twice a day. CV: NSTEMI Pulmonary edema High degree AV block-now resolved Dyslipidemia Hypertension 05/17 Status post angioplasty and stents of the distal LAD and mid LAD, and angioplasty and stenting of the proximal/ostial RCA Echocardiogram revealed EF 60-65%. Asymmetric septal hypertrophy. Trace MR. Carvedilol to 12.5 mg by mouth twice a day for hypertension 05/26. Holding lisinopril 10 mg daily due to EZ Clonidine 0.3 mg q8 and hydralazine 50 mg ill grams 3 times a day Temporary Pacemaker is been removed 05/18 Aspirin 81 mg by mouth daily, Ticagrelor 90 mg by mouth twice a day for stent Atorvastatin 80 mg by mouth daily for dyslipidemia. Holding fish oil/ cholecalciferol 1000/100 3 tablets twice a day DCd Bumex gtt 0.5 mg per hour due to creat increasing (Home medications are losartan/hctz 300 mg/12.5 mg daily with additional hydrochlorothiazide 12.5 mg additional daily. Hypertension along with metoprolol 50 mg by mouth twice a day and clonidine 0.1 mg by mouth twice a day and Norvasc 5 mg twice a day and diltiazem 240 mg by mouth daily and hydralazine 10 mg 3 times a day) 06/01 Start on IV Bumex. ID: Possible HCAP, but infiltrates are most likely from pulm edema Oral thrush Bilateral infiltrate on chest x-ray most likely from pulmonary edema (ARDS vs cardiogenic)-these infiltrates present on CXR immediately after intubation, so VAP is unlikely. ALL cultures negative, doubt infectious etiology Monitor off all antibiotics. ID Dr. Godinez On nystatin swish and spit every 6 hours, Diflucan added 05/30 05/20 fiberoptic bronchoscopy with BAL no growth Legionella, pneumococcal, influenza A and B antigens- results negative Repeat urine and blood cultures no growth Endo Diabetes mellitus Insulin sliding scale with NovoLog, low dose regimen. Holding metformin 750 mg twice a day/home medication 06/02 blood sugar very elevated and severely uncontrolled. I will start the patient on insulin Levemir 5 units subcutaneous twice a day and continue to cover elevated blood sugars with subcutaneous sliding insulin. Renal Chronic kidney disease stage 3 - Creatinine 1.27 - 1.48, improving. UO -1.7L in 24 hours - Monitor I's and O 06/01 replace Garcia catheter since patient has a decubitus wound and is in ICU getting diuretics. 06/02 creatinine is slowly trending down. GI prophylaxis Pepcid DVT- Teds SCDs heparin subcutaneous Discussed with RN and patient. Discharge Planning Continue to monitor in intensive care unit. Patient still on high requirements of oxygen. Damon Orellana MD Jun 02, 2017 14:40
[2017-06-02] MEDS: hydrALAZINE HCL 20 MG/ML VIAL IV PUSH PRN (15:52)
[2017-06-02] MEDS: BUMETANIDE INJ 1 MG/4 ML VIAL IV PUSH SCH (17:21)
[2017-06-02] MEDS: ATORVASTATIN 10 MG TAB PO SCH (21:22)
[2017-06-03] VITALS (15 sets, daily range): BP systolic 145–184; BP diastolic 65–100; PULSE 56–67; RESP 25–32; TEMP 98.1–98.7; O2SAT 90–94
[2017-06-03] MEDS: cloNIDine HCL 0.3 MG TAB PO SCH ×3 (00:25→16:36)
[2017-06-03] MEDS: hydrALAZINE HCL 50 MG TAB PO SCH ×3 (05:00→20:26)
[2017-06-03 05:23] LABS: HEMATOCRIT 25.7 % (35.0-46.0); MEAN CELL VOLUME 84.4 FL (80.0-100.0); MEAN CORPUSCULAR HEMOGLOBIN 28.3 PG (27.0-34.0); MEAN CORPUSCULAR HGB CONC 33.5 % (32.0-36.0); PLATELET COUNT 355 TH/MM3 (150-450); RED BLOOD COUNT 3.04 MIL/MM3 (4.00-5.30); REVIEW FLAG FINAL; WHITE BLOOD COUNT 13.6 TH/MM3 (4.0-11.0)
[2017-06-03] MEDS: INSULIN ASPART SUPPLEMENTAL SCALE SQ SCH ×5 (06:00→20:33)
[2017-06-03] MEDS: ARTIFICIAL TEARS OPTH SOLN 15 ML BTL EACH EYE SCH ×3 (06:00→20:33)
[2017-06-03] MEDS: methylPREDNISolone SOD SUCC 40 MG/1 ML VIAL IV PUSH SCH ×2 (06:00→13:12)
[2017-06-03] MEDS: NYSTATIN SUSP 500,000 U/5 ML CUP SWISH-SWAL SCH ×4 (07:39→20:33)
[2017-06-03] MEDS: SODIUM CHLORIDE 0.9% FLUSH 10 ML FLUSH IV FLUSH SCH ×2 (07:39→20:26)
[2017-06-03] MEDS: CHLORHEXIDINE 0.12% (ORAL KIT) 15 ML CUP MT SCH ×2 (07:39→20:33)
[2017-06-03] MEDS: busPIRone HCL 10 MG TAB PO SCH ×2 (07:40→20:26)
[2017-06-03] MEDS: BUMETANIDE INJ 1 MG/4 ML VIAL IV PUSH SCH ×2 (07:40→16:37)
[2017-06-03] MEDS: ASPIRIN EC 81 MG TABEC PO SCH (07:40)
[2017-06-03] MEDS: FLUCONAZOLE 100 MG TAB PO SCH (07:40)
[2017-06-03] MEDS: HEPARIN SODIUM - SQ 10,000 UNITS/ML VIAL SQ SCH ×2 (07:40→20:27)
[2017-06-03] MEDS: TICAGRELOR 90 MG TAB PO SCH ×2 (07:40→20:26)
[2017-06-03] MEDS: INSULIN DETEMIR 100 UNITS/ML VIAL SQ SCH ×2 (07:41→20:27)
[2017-06-03] MEDS: FAMOTIDINE 20 MG TAB PO SCH ×2 (07:41→20:27)
--- NOTE | 2017-06-03 19:35 | HHI.PR ---
Subjective Remarks Deferred entry - patient seen at 11:45 due to down time on EMR system sob much improved denies fevers/chills cough much improved as well wbc elevated on 3 liters nasal canula Objective Vitals Vital Signs Date Time Temp Pulse Resp B/P (MAP) Pulse Ox O2 Delivery O2 Flow Rate FiO2 06/03/17 18:00 64 06/03/17 17:00 64 30 173/76 (108) 93 06/03/17 16:00 65 06/03/17 16:00 98.1 61 27 154/86 (108) 94 06/03/17 15:00 63 26 145/99 (114) 92 06/03/17 14:00 61 27 151/65 (93) 93 06/03/17 14:00 64 06/03/17 13:01 59 27 173/72 (105) 92 06/03/17 09:10 91 Nasal Cannula 4.00 06/03/17 08:00 56 06/03/17 06:00 60 06/03/17 04:00 61 06/03/17 04:00 98.6 61 25 159/74 (102) 93 06/03/17 02:00 59 06/03/17 00:00 98.4 67 32 151/65 (93) 90 06/03/17 00:00 67 06/02/17 22:00 64 06/02/17 20:37 92 Nasal Cannula 5.00 06/02/17 20:00 68 06/02/17 20:00 98.9 68 26 160/70 (100) 92 I/O 06/02/17 06/02/17 06/02/17 06/03/17 06/03/17 06/03/17 06:59 14:59 22:59 06:59 14:59 22:59 Intake Total 120 ml 500 ml 500 ml 100 ml 800 ml Output Total 350 ml 950 ml 850 ml 450 ml 675 ml Balance -230 ml -450 ml -350 ml -350 ml 125 ml Intake Oral 120 ml 500 ml 500 ml 100 ml 800 ml IV Total 0 ml Output Urine Total 350 ml 950 ml 850 ml 450 ml 675 ml Stool Total 0 ml 0 ml 0 ml # Bowel Movements 0 Result Diagram: 06/03/17 0358 06/02/17 0626 Imaging Last Impressions Chest X-Ray 06/01/17 0000 Signed Impressions: Service Date/Time: Thursday, June 01, 2017 15:33 - CONCLUSION: 1. Continued bilateral infiltrates concerning for pneumonia. Stable compared to prior. Ronaldo Mitchell MD Chest CT 05/26/17 0000 Signed Impressions: Service Date/Time: Friday, May 26, 2017 09:31 - CONCLUSION: 1. Multiple patchy areas of consolidation of both lungs which could indicate pulmonary edema. 2. Small bilateral pleural effusions right greater than left. 3. Mediastinal adenopathy and questionable mild hilar adenopathy. 4. Mild cardiomegaly. Bandar Pruitt MD Objective Remarks GENERAL: Well-nourished, well-developed patient, awake, on nasal canula, not in respiratory distress SKIN: Warm and dry. Pressure injury to sacral area HEAD: Normocephalic. EYES: Pupils are equally round and reactive to light and accommodation. No scleral icterus. No injection or drainage. NECK: Supple, trachea midline. No JVD or lymphadenopathy. CARDIOVASCULAR: RRR. S1, S2. No S4. Without murmur RESPIRATORY: Clear to auscultation BL GASTROINTESTINAL: Abdomen soft, protuberant, non-tender, hypoactive bowel sounds. Thrush lateral distal tongue MUSCULOSKELETAL: Trace nonpitting lower extremity edema bilaterally. BACK: Nontender without obvious deformity. NEURO: Alert oriented. normal speech. Moves all 4 extremity spontaneously to command. Medications and IVs Current Medications Medications (Trade) Dose Ordered Sig/Renaldo Route Start Time Stop Time Status Last Admin (NS Flush) 2 ml UNSCH PRN IV FLUSH 05/17/17 00:30 (NS Flush) 2 ml BID IV FLUSH 05/17/17 09:00 06/03/17 07:39 (Narcan Inj) 0.4 mg UNSCH PRN IV 05/17/17 00:30 Miscellaneous Information Patient in critical care unit? Ass... Q361D .XX 05/17/17 02:45 (Norvasc) 5 mg BID PO 05/17/17 09:00 Future Hold 05/17/17 07:46 (Buspar) 30 mg BID PO 05/17/17 09:00 06/03/17 07:40 (Cardizem Cd) 240 mg DAILY PO 05/17/17 09:00 Future Hold 05/17/17 07:48 (Glucophage) 750 mg BIDPC PO 05/17/17 09:00 Future Hold 05/17/17 16:32 (Cozaar) 100 mg DAILY PO 05/17/17 09:00 Future Hold 05/17/17 07:47 (Hydrodiuril) 12.5 mg DAILY PO 05/17/17 09:00 Future Hold 05/17/17 07:48 (Pill Splitter) 1 ea UNSCH PRN OTHER 05/17/17 05:30 (Nitrostat Sl) 0.4 mg Q5M PRN SL 05/17/17 09:15 05/17/17 09:28 (Tessalon) 100 mg TID PRN PO 05/17/17 09:15 05/31/17 17:15 (Lipitor) 80 mg HS PO 05/17/17 21:00 06/02/17 21:22 (Peridex 0.12% Liq) 15 ml BID@08,20 MT 05/18/17 20:00 06/02/17 20:00 (Prinivil) 10 mg Q24H PO 05/18/17 19:15 Future Hold 05/24/17 21:27 (Tylenol) 650 mg Q6H PRN PO 05/20/17 22:00 05/30/17 09:34 (D50w (Vial) Inj) 50 ml UNSCH PRN IV 05/22/17 13:15 (Glucagon Inj) 1 mg UNSCH PRN OTHER 05/22/17 13:15 (Mycostatin Liq) 5 ml QID SWISH-SWAL 05/22/17 21:00 06/03/17 16:37 Potassium Chloride 100 ml @ 50 mls/hr Q2H PRN IV 05/23/17 07:30 Potassium Chloride 100 ml @ 50 mls/hr Q2H PRN IV 05/23/17 07:30 (K-Lyte Cl Eff) 50 meq UNSCH PRN PO 05/23/17 07:30 05/30/17 05:05 Potassium Chloride 100 ml @ 25 mls/hr UNSCH PRN IV 05/23/17 07:30 Potassium Chloride 100 ml @ 50 mls/hr Q2H PRN IV 05/23/17 07:30 Magnesium Sulfate 4 gm/Sodium Chloride 100 ml @ 50 mls/hr UNSCH PRN IV 05/23/17 07:30 (Mag-Ox) 800 mg UNSCH PRN PO 05/23/17 07:30 Magnesium Sulfate 2 gm/Sodium Chloride 100 ml @ 50 mls/hr UNSCH PRN IV 05/23/17 07:30 (K-Phos) 2,000 mg Q4H PRN PO 05/23/17 07:30 Sodium Phosphate 30 mmol/Sodium Chloride 250 ml @ 42 mls/hr UNSCH PRN IV 05/23/17 07:30 05/23/17 14:50 (K-Phos) 2,000 mg UNSCH PRN PO/TUBE 05/23/17 07:30 Potassium Phosphate 30 mmol/ Sodium Chloride 260 ml @ 42 mls/hr UNSCH PRN IV 05/23/17 07:30 (Tears Naturale Opth Soln) 1 drop Q8HR EACH EYE 05/24/17 14:00 06/03/17 06:00 (NovoLOG SUPPLEMENTAL SCALE) 1 Q6HR SQ 05/24/17 12:00 06/03/17 17:00 (Albuterol Neb) 2.5 mg Q2HR NEB PRN NEB 05/24/17 09:30 06/02/17 14:56 (Apresoline Inj) 10 mg Q1HR PRN IV PUSH 05/24/17 11:30 06/02/17 15:52 (Nitroglycerin 2% Oint) 2 inch Q6HR PRN TOPICAL 05/24/17 11:30 05/25/17 09:01 (Heparin Inj) 5,000 units Q12HR SQ 05/24/17 21:00 06/03/17 07:40 (Brilinta) 90 mg BID PO 05/24/17 21:00 06/03/17 07:40 (Ecotrin Ec) 81 mg DAILY PO 05/25/17 09:00 06/03/17 07:40 (Bumex Inj) 1 mg BID@,18 IV PUSH 05/25/17 18:00 Future Hold 05/28/17 10:00 (Racepinephrine 2.25% Neb) 0.5 ml Q2HR NEB PRN NEB 05/26/17 15:30 05/30/17 19:53 (Robitussin Liq) 200 mg Q6H PRN PO 05/27/17 00:45 05/31/17 22:15 (Dulcolax Supp) 10 mg DAILY PRN RECTAL 05/27/17 07:00 (Coreg) 12.5 mg BID PO 05/27/17 09:00 Future Hold 06/02/17 08:54 (Apresoline) 50 mg Q8H PO 05/27/17 13:00 06/03/17 13:12 (Catapres) 0.3 mg Q8H PO 05/28/17 17:00 06/03/17 16:36 (Pepcid) 10 mg BID PO 05/29/17 09:00 06/03/17 07:41 (Diflucan) 100 mg DAILY PO 05/30/17 11:00 06/04/17 10:59 06/03/17 07:40 (SoluMEDROL INJ) 40 mg Q8HR IV PUSH 06/02/17 06:00 06/03/17 13:12 (Bumex Inj) 1 mg BID@,18 IV PUSH 06/02/17 18:00 06/03/17 16:37 (Levemir Inj) 5 units Q12HR SQ 06/02/17 10:30 06/03/17 07:41 A/P Problem List: (1) Acute hypoxemic respiratory failure ICD Code: J96.01 - Acute respiratory failure with hypoxia Status: Acute (2) Respiratory distress ICD Code: R06.00 - Dyspnea, unspecified Status: Acute (3) Ischemic cardiomyopathy ICD Code: I25.5 - Ischemic cardiomyopathy Status: Acute (4) Acute diastolic heart failure ICD Code: I50.31 - Acute diastolic (congestive) heart failure Status: Acute (5) EZ (acute kidney injury) ICD Code: N17.9 - Acute kidney failure, unspecified Status: Acute (6) CKD (chronic kidney disease), stage III ICD Code: N18.3 - Chronic kidney disease, stage 3 (moderate) Status: Chronic (7) Pulmonary edema ICD Code: J81.1 - Chronic pulmonary edema Status: Acute (8) High degree atrioventricular block ICD Code: I44.39 - Other atrioventricular block Status: Resolved (9) CAD (coronary artery disease) ICD Code: I25.10 - Atherosclerotic heart disease of [place] coronary artery without angina pectoris Status: Chronic (10) NSTEMI (non-ST elevated myocardial infarction) ICD Code: I21.4 - Non-ST elevation (NSTEMI) myocardial infarction Status: Resolved (11) Encephalopathy acute ICD Code: G93.40 - Encephalopathy, unspecified Status: Resolved Assessment and Plan NEURO/Psych: Depression disorder Anxiety disorder Chronic benzodiazepine use Encephalopathy - resolved Initially Ativan was continued and sinuses discontinued on 05/25/17. 06/02 Continue to hold sedatives. Patient is more awake today. Acetaminophen 650 mg by mouth every 6 hours when necessary fever/pain Respiratory: Acute hypercapnic hypoxic Respiratory failure HCAP Pulmonary edema (Cardiogenic vs ARDS) Extubated 05/26. On NC. Cannot tolerate BiPAP Albuterol/Atrovent aerosols every 6 hours with albuterol aerosols every 2 hours PRN, EzPAP, Acapella, IS s/p dexamethasone 4 mg IV every 6 hours times x [address] dos[address] chest 05/26: Bilateral extensive infiltrates pulmonary edema Cardiogenic vs ARDS, doubt infection Observe off ABX CXR 05/30 stable to slightly improved 06/02 patient is status post IV Solu-Medrol and IV Bumex for respiratory distress and acute respiratory failure with bilateral wheezing on exam. Patient respiratory status is much improved, continue IV Solu-Medrol but taper dose to every 8 hours. Continue supplemental oxygen to keep oxygen saturations more than 92%. Patient continues to be a febrile and is being followed by infectious disease recommended to monitor off antibiotics, which I agree. Bilateral patchy infiltrates could possibly be secondary to pulmonary edema. I will start the patient IV Bumex 1 mg IV twice a day. 06/03 Continue IV Solumedrol, decrease frequency to every 12 hours. Continue IV Bumex. Repeat CXR in am. CV: NSTEMI Pulmonary edema High degree AV block-now resolved Dyslipidemia Hypertension 05/17 Status post angioplasty and stents of the distal LAD and mid LAD, and angioplasty and stenting of the proximal/ostial RCA Echocardiogram revealed EF 60-65%. Asymmetric septal hypertrophy. Trace MR. Carvedilol to 12.5 mg by mouth twice a day for hypertension 05/26. Holding lisinopril 10 mg daily due to EZ Clonidine 0.3 mg q8 and hydralazine 50 mg ill grams 3 times a day Temporary Pacemaker is been removed 05/18 Aspirin 81 mg by mouth daily, Ticagrelor 90 mg by mouth twice a day for stent Atorvastatin 80 mg by mouth daily for dyslipidemia. Holding fish oil/ cholecalciferol 1000/100 3 tablets twice a day DCd Bumex gtt 0.5 mg per hour due to creat increasing (Home medications are losartan/hctz 300 mg/12.5 mg daily with additional hydrochlorothiazide 12.5 mg additional daily. Hypertension along with metoprolol 50 mg by mouth twice a day and clonidine 0.1 mg by mouth twice a day and Norvasc 5 mg twice a day and diltiazem 240 mg by mouth daily and hydralazine 10 mg 3 times a day) 06/03 Continue IV Bumex. ID: Possible HCAP, but infiltrates are most likely from pulmonary edema Oral thrush Bilateral infiltrate on chest x-ray most likely from pulmonary edema (ARDS vs cardiogenic)-these infiltrates present on CXR immediately after intubation, so VAP is unlikely. ALL cultures negative, doubt infectious etiology Monitor off all antibiotics. ID Dr. Godinez On nystatin swish and spit every 6 hours, Diflucan added 05/30 05/20 fiberoptic bronchoscopy with BAL no growth Legionella, pneumococcal, influenza A and B antigens- results negative Repeat urine and blood cultures no growth Endo Diabetes mellitus Insulin sliding scale with NovoLog, low dose regimen. Holding metformin 750 mg twice a day/home medication 06/02 blood sugar very elevated and severely uncontrolled. I will start the patient on insulin Levemir 5 units subcutaneous twice a day and continue to cover elevated blood sugars with subcutaneous sliding insulin. 06/03 Blood sugars still severely uncontrolled due to steroid use. Will increase levemir t o 10 units SQ every 12 hrs and start on prandial insulin Novolog coverage. Increase SSI scale to medium. Renal Chronic kidney disease stage 3 - Creatinine 1.27 - 1.48, improving. UO -1.7L in 24 hours - Monitor I's and O 06/01 replace Garcia catheter since patient has a decubitus wound and is in ICU getting diuretics. 06/02 creatinine is slowly trending down. GI prophylaxis Pepcid DVT- Teds SCDs heparin subcutaneous Discussed with RN and patient and patient's daughter at bedside. Discharge Planning Continue to monitor in intensive care unit. Possible transfer out of ICU if improved. Damon Orellana MD Jun 03, 2017 19:35
[2017-06-03] MEDS: amLODIPine BESYLATE 5 MG TAB PO SCH (20:27)
[2017-06-03] MEDS: ATORVASTATIN 10 MG TAB PO SCH (20:56)
[2017-06-03] MEDS: hydrALAZINE HCL 20 MG/ML VIAL IV PUSH PRN ×2 (21:35→22:10)
[2017-06-03] MEDS ORDERED: LACTULOSE SYRUP 20 GM/30 ML CUP PO ONE (22:45)
[2017-06-04] VITALS (34 sets, daily range): BP systolic 81–156; BP diastolic 41–88; PULSE 52–62; RESP 20–34; TEMP 97.8–99; O2SAT 87–96
[2017-06-04] MEDS: cloNIDine HCL 0.3 MG TAB PO SCH ×3 (00:16→17:25)
[2017-06-04] MEDS ORDERED: MINERAL OIL ENEMA 118 ML BTL RECTAL ONE ×3 (00:30→14:00)
[2017-06-04] MEDS: hydrALAZINE HCL 50 MG TAB PO SCH ×2 (03:42→11:00)
[2017-06-04] MEDS: ACETAMINOPHEN 325 MG TAB PO PRN (03:42)
--- NOTE | 2017-06-04 05:09 | RADRPT ---
EXAM DATE/TIME: 06/04/2017 03:01 [facility] COMPARISON: CHEST SINGLE AP, June 01, 2017, 15:33. INDICATIONS : Shortness of breath, possible pulmonary disease. MEDICAL HISTORY : Hypertension. Cardiovascular disease. SURGICAL HISTORY : Hysterectomy. Cholecystectomy. ENCOUNTER: Subsequent ACUITY: 3 days PAIN SCORE: 0/10 LOCATION: Bilateral chest FINDINGS: A single view of the chest demonstrates patchy bilateral spaces this. No significant effusion. No pne umothorax. CONCLUSION: 1. Patchy bilateral air space disease similar to June 01. No significant effusion. Hector Montelongo MD on June 04, 2017 at 5:06 Board Certified Radiologist. This report was verified electronically.
[2017-06-04 05:47] LABS: HEMATOCRIT 28.3 % (35.0-46.0); MEAN CELL VOLUME 84.6 FL (80.0-100.0); MEAN CORPUSCULAR HGB CONC 33.1 % (32.0-36.0); PLATELET COUNT 416 TH/MM3 (150-450); RED BLOOD COUNT 3.34 MIL/MM3 (4.00-5.30); RED CELL DISTRIBUTION WIDTH 16.3 % (11.6-17.2); REVIEW FLAG FINAL; WHITE BLOOD COUNT 19.5 TH/MM3 (4.0-11.0)
[2017-06-04] MEDS: ARTIFICIAL TEARS OPTH SOLN 15 ML BTL EACH EYE SCH ×2 (06:00→14:00)
[2017-06-04 06:19] LABS: BICARBONATE 25.4 MEQ/L (21.0-32.0); POTASSIUM 3.2 MEQ/L (3.5-5.1)
[2017-06-04] MEDS: INSULIN ASPART SUPPLEMENTAL SCALE SQ SCH ×4 (07:00→21:00)
[2017-06-04] MEDS: CHLORHEXIDINE 0.12% (ORAL KIT) 15 ML CUP MT SCH ×2 (08:00→20:00)
[2017-06-04] MEDS: INSULIN ASPART 1,000 UNITS/10 ML VIAL SQ SCH ×3 (08:15→17:29)
[2017-06-04] MEDS: INSULIN DETEMIR 100 UNITS/ML VIAL SQ SCH ×2 (08:16→21:00)
[2017-06-04] MEDS: HEPARIN SODIUM - SQ 10,000 UNITS/ML VIAL SQ SCH ×2 (08:17→21:00)
[2017-06-04] MEDS: FAMOTIDINE 20 MG TAB PO SCH ×2 (08:17→21:01)
[2017-06-04] MEDS: FLUCONAZOLE 100 MG TAB PO SCH (08:17)
[2017-06-04] MEDS: BUMETANIDE INJ 1 MG/4 ML VIAL IV PUSH SCH (08:17)
[2017-06-04] MEDS: amLODIPine BESYLATE 5 MG TAB PO SCH (08:17)
[2017-06-04] MEDS: ASPIRIN EC 81 MG TABEC PO SCH (08:18)
[2017-06-04] MEDS: busPIRone HCL 10 MG TAB PO SCH ×2 (08:22→21:01)
[2017-06-04] MEDS: TICAGRELOR 90 MG TAB PO SCH ×2 (08:22→21:01)
[2017-06-04] MEDS: NYSTATIN SUSP 500,000 U/5 ML CUP SWISH-SWAL SCH ×4 (08:24→21:00)
[2017-06-04] MEDS: SODIUM CHLORIDE 0.9% FLUSH 10 ML FLUSH IV FLUSH SCH ×2 (08:24→21:00)
--- NOTE | 2017-06-04 10:39 | HHI.IDPN ---
Subjective Subjective Remarks Patient is a 81-year-old female, presented to the hospital complaining of cough , shortness of breath and chest tightness for one week. She was bringing up some whitish phlegm. She had worsening shortness of breath and presented to the hospital for further evaluation and treatment. She has had chills the night of admission. No nausea or vomiting or any urinary complaints. On presentation she ruled in for an TX. She had high grade AV block, and underwent emergent cardiac catheterization. She had some interventions done, and she also had placement of a temporary pacemaker. He ended up getting intubated. She's been intubated since. She had the fever initially, and that has improved, however since yesterday she started having fevers again. She apparently was having a lot of secretions, and required bronchoscopy yesterday. She is febrile today. She is awake and responding. She is on the vent. Infectious disease consultation has been requested to evaluate the patient. Notes reviewed Afebrile Clinically stable ID gomez off Abx On nasal O2 Antibiotics None Lines PIV Past Medical History HTN DM TX CKD stage 3 Past Surgical History Heart stents Cholecystectomy Hysterectomy Allergies: Coded Allergies: simvastatin (Unverified Allergy, Severe, ARMS SWELL, 05/29/17) Objective . Vital Signs Date Time Temp Pulse Resp B/P (MAP) Pulse Ox O2 Delivery O2 Flow Rate FiO2 06/04/17 09:34 95 Nasal Cannula 4.00 06/04/17 09:01 58 06/04/17 09:00 58 06/04/17 08:30 61 29 131/60 (83) 92 06/04/17 08:30 61 06/04/17 08:01 59 06/04/17 08:00 59 06/04/17 08:00 97.9 59 28 131/63 (85) 93 06/04/17 07:30 60 25 154/63 (93) 92 06/04/17 07:30 60 06/04/17 07:00 59 27 140/70 (93) 94 06/04/17 07:00 59 06/04/17 06:00 57 06/04/17 04:00 62 06/04/17 04:00 98.6 62 27 156/67 (96) 89 06/04/17 02:00 60 06/04/17 00:00 98.5 60 23 155/70 (98) 92 06/04/17 00:00 60 06/03/17 22:00 62 06/03/17 20:03 94 Nasal Cannula 4.00 06/03/17 20:00 98.7 58 25 184/100 (128) 94 06/03/17 20:00 58 06/03/17 18:00 64 06/03/17 17:00 64 30 173/76 (108) 93 06/03/17 16:00 65 06/03/17 16:00 98.1 61 27 154/86 (108) 94 06/03/17 15:00 63 26 145/99 (114) 92 06/03/17 14:00 61 27 151/65 (93) 93 06/03/17 14:00 64 06/03/17 13:01 59 27 173/72 (105) 92 . Laboratory Tests Test 06/03/17 03:58 06/04/17 04:26 White Blood Count 13.6 TH/MM3 19.5 TH/MM3 Red Blood Count 3.04 MIL/MM3 3.34 MIL/MM3 Hemoglobin 8.6 GM/DL 9.4 GM/DL Hematocrit 25.7 % 28.3 % Mean Corpuscular Volume 84.4 FL 84.6 FL Mean Corpuscular Hemoglobin 28.3 PG 28.0 PG Mean Corpuscular Hemoglobin Concent 33.5 % 33.1 % Red Cell Distribution Width 16.0 % 16.3 % Platelet Count 355 TH/MM3 416 TH/MM3 Mean Platelet Volume 7.8 FL 7.7 FL Laboratory Tests Test 06/04/17 04:26 Blood Urea Nitrogen 57 MG/DL Creatinine 1.48 MG/DL Random Glucose 180 MG/DL Calcium Level 8.6 MG/DL Sodium Level 135 MEQ/L Potassium Level 3.2 MEQ/L Chloride Level 97 MEQ/L Carbon Dioxide Level 25.4 MEQ/L Anion Gap 13 MEQ/L Estimat Glomerular Filtration Rate 34 ML/MIN Imaging Chest X-Ray 05/31/17 06 Signed Impressions: Service Date/Time: May 03:49 - CONCLUSION: Persistent bilateral patchy infiltrates. Arik Cosby MD Chest X-Ray 05/30/17 06 Signed Impressions: Service Date/Time: Tuesday, May 30, 2017 04:34 - CONCLUSION: Persistent and stable bilateral mid and lower lung infiltrates. Arik Cosby MD Chest X-Ray 05/28/17 06 Signed Impressions: Service Date/Time: Sunday, May 28, 2017 04:28 - CONCLUSION: Increasing bilateral infiltrates mid and lower lungs, and interval development of consolidation in the left lower lung. Arik Cosby MD Chest X-Ray 05/27/17 06 Signed Impressions: Service Date/Time: Saturday, May 27, 2017 03:19 - CONCLUSION: Slightly improved bilateral patchy airspace disease.. Shabbir Benjamin MD Chest X-Ray 05/26/17599 Signed Impressions: Service Date/Time: Friday, May 26, 2017 03:30 - CONCLUSION: Stable bilateral patchy consolidation. Shabbir Benjamin MD Chest CT 05/26/17 0000 Signed Impressions: Service Date/Time: Friday, May 26, 2017 09:31 - CONCLUSION: 1. Multiple patchy areas of consolidation of both lungs which could indicate pulmonary edema. 2. Small bilateral pleural effusions right greater than left. 3. Mediastinal adenopathy and questionable mild hilar adenopathy. 4. Mild cardiomegaly. Bandar Pruitt MD Last 72 hours Impressions Chest X-Ray 05/22/17599 Signed Impressions: Service Date/Time: Monday, May 22, 2017 03:32 - CONCLUSION: No significant change has occurred. Sterling Guevara MD Chest X-Ray 05/21/17599 Signed Impressions: Service Date/Time: Sunday, May 21, 2017 02:53 - CONCLUSION: Improved aeration of the left lower lobe. Sterling Guevara MD Chest X-Ray 05/20/17599 Signed Impressions: Service Date/Time: Saturday, May 20, 2017 03:36 - CONCLUSION: 1. Patchy alveolar disease characteristic of edema or pneumonia. There has been no significant change when compared to the prior exam. Chano Bullock MD Chest X-Ray 05/20/17 Signed Impressions: Service Date/Time: Saturday, May 20, 2017 15:35 - CONCLUSION: No significant change. Bilateral infiltrates persist. No pneumothorax or other acute complication seen post bronchoscopy. David Rodriguez MD Chest X-Ray 05/20/17 Signed Impressions: Service Date/Time: Saturday, May 20, 2017 13:49 - CONCLUSION: 1. Patchy bilateral pulmonary infiltrates persist without significant change. David Rodriguez MD Physical Exam GENERAL: Awake, weak SKIN: Warm and dry. No generalized rash EYES: [place] conjunctiva. No petechia or hemorrhage. No scleral icterus. No injection or drainage. EARS, NOSE AND THROAT: Nose without bleeding or purulent nasal discharge. Moist mucosa NECK: Trachea midline. Supple and not tender, no meningeal signs CARDIOVASCULAR: Regular rate and rhythm. No murmurs, rubs or gallops heard RESPIRATORY: Decreased BS at bases ABDOMEN: Soft, not distended, not tender. Bowel sounds present and normoactive. No guarding. No rebound. No organomegaly. EXTREMITIES: No clubbing, cyanosis, or edema. No calf tenderness. Well perfused and warm. NEUROLOGICAL: Awake, non-focal PSYCHIATRIC: cooperative. LINE: No evidence of infection : Garcia in place, urine looks clear Assessment & Plan Remarks IMPRESSION Fever likely due to VAP, resolved - one low grade temps last 24 hours, ?due to atelectasis - S/P PNA RX Initial presentation with CAP, has been on vent since 05/17 TX, S/P intervention Respiratory failure, extubated 05/26, sleepy today, ?getting tired RECOMMENDATION Monitor for S/Sxs of new infection Clinically stable from ID standpoint I will sign off Please reconsult ID if with new ID issue or question Nani Godinez MD Jun 04, 2017 10:39
[2017-06-04] MEDS ORDERED: POTASSIUM CHLORIDE 20 MEQ PWD PACKET PO ONE ×2 (11:15→14:00)
[2017-06-04] MEDS ORDERED: Vancomycin Consult Pharmacy 1 EA OTHER SCH (11:30)
[2017-06-04] MEDS ORDERED: SODIUM CHLOR 0.9% 250 ML INJ 250 ML IV ONE (11:30)
--- NOTE | 2017-06-04 12:15 | HHI.PR ---
Subjective Remarks states she is constipated and feels a lot of rectal pressure as per RN patient had lactulose and a mineral oil enema last night and had small BM Denies cp sob is improved, however patient still tachypneic afebrile currently on 4 liters nasal canula sating 90% BP low today at 81/43 Objective Vitals Vital Signs Date Time Temp Pulse Resp B/P (MAP) Pulse Ox O2 Delivery O2 Flow Rate FiO2 06/04/17 09:34 95 Nasal Cannula 4.00 06/04/17 09:01 58 06/04/17 09:00 58 06/04/17 08:30 61 29 131/60 (83) 92 06/04/17 08:30 61 06/04/17 08:01 59 06/04/17 08:00 59 06/04/17 08:00 97.9 59 28 131/63 (85) 93 06/04/17 07:30 60 25 154/63 (93) 92 06/04/17 07:30 60 06/04/17 07:00 59 27 140/70 (93) 94 06/04/17 07:00 59 06/04/17 06:00 57 06/04/17 04:00 62 06/04/17 04:00 98.6 62 27 156/67 (96) 89 06/04/17 02:00 60 06/04/17 00:00 98.5 60 23 155/70 (98) 92 06/04/17 00:00 60 06/03/17 22:00 62 06/03/17 20:03 94 Nasal Cannula 4.00 06/03/17 20:00 98.7 58 25 184/100 (128) 94 06/03/17 20:00 58 06/03/17 18:00 64 06/03/17 17:00 64 30 173/76 (108) 93 06/03/17 16:00 65 06/03/17 16:00 98.1 61 27 154/86 (108) 94 06/03/17 15:00 63 26 145/99 (114) 92 06/03/17 14:00 61 27 151/65 (93) 93 06/03/17 14:00 64 06/03/17 13:01 59 27 173/72 (105) 92 I/O 8/20/17 8/20/06/03/17 06/04/17 06/04/17 06/04/17 06:59 14:59 22:59 06:59 14:59 22:59 Intake Total 100 ml 800 ml Output Total 450 ml 675 ml Balance -350 ml 125 ml Intake Oral 100 ml 800 ml Output Urine Total 450 ml 675 ml Stool Total 0 ml 0 ml Result Diagram: 06/04/17 0426 06/04/17 0426 Imaging Last Impressions Chest X-Ray 06/01/17 0000 Signed Impressions: Service Date/Time: Thursday, June 01, 2017 15:33 - CONCLUSION: 1. Continued bilateral infiltrates concerning for pneumonia. Stable compared to prior. Ronaldo Mitchell MD Chest CT 05/26/17 0000 Signed Impressions: Service Date/Time: Friday, May 26, 2017 09:31 - CONCLUSION: 1. Multiple patchy areas of consolidation of both lungs which could indicate pulmonary edema. 2. Small bilateral pleural effusions right greater than left. 3. Mediastinal adenopathy and questionable mild hilar adenopathy. 4. Mild cardiomegaly. Bandar Pruitt MD Objective Remarks GENERAL: Well-nourished, well-developed patient, awake, on nasal canula, not in respiratory distress SKIN: Warm and dry. Pressure injury to sacral area HEAD: Normocephalic. EYES: Pupils are equally round and reactive to light and accommodation. No scleral icterus. No injection or drainage. NECK: Supple, trachea midline. No JVD or lymphadenopathy. CARDIOVASCULAR: RRR. S1, S2. No S4. Without murmur RESPIRATORY: There are crackles on BL lower lung boyer more pronounced on the left side. No rhonchi or wheezing auscultated. GASTROINTESTINAL: Abdomen soft, protuberant, non-tender, hypoactive bowel sounds. Thrush lateral distal tongue MUSCULOSKELETAL: Trace nonpitting lower extremity edema bilaterally. BACK: Nontender without obvious deformity. NEURO: Alert oriented. normal speech. Moves all 4 extremity spontaneously to command. Medications and IVs Current Medications Medications (Trade) Dose Ordered Sig/Renaldo Route Start Time Stop Time Status Last Admin (NS Flush) 2 ml UNSCH PRN IV FLUSH 05/17/17 00:30 (NS Flush) 2 ml BID IV FLUSH 05/17/17 09:00 06/04/17 08:24 (Narcan Inj) 0.4 mg UNSCH PRN IV 05/17/17 00:30 Miscellaneous Information Patient in critical care unit? Ass... [id number] .XX 05/17/17 02:45 (Buspar) 30 mg BID PO 05/17/17 09:00 06/04/17 08:22 (Cardizem Cd) 240 mg DAILY PO 05/17/17 09:00 Future Hold 05/17/17 07:48 (Glucophage) 750 mg BIDPC PO 05/17/17 09:00 Future Hold 05/17/17 16:32 (Cozaar) 100 mg DAILY PO 05/17/17 09:00 Future Hold 05/17/17 07:47 (Hydrodiuril) 12.5 mg DAILY PO 05/17/17 09:00 Future Hold 05/17/17 07:48 (Pill Splitter) 1 ea UNSCH PRN OTHER 05/17/17 05:30 (Nitrostat Sl) 0.4 mg Q5M PRN SL 05/17/17 09:15 05/17/17 09:28 (Tessalon) 100 mg TID PRN PO 05/17/17 09:15 05/31/17 17:15 (Lipitor) 80 mg HS PO 05/17/17 21:00 06/03/17 20:56 (Peridex 0.12% Liq) 15 ml BID@08,20 MT 05/18/17 20:00 06/03/17 20:33 (Prinivil) 10 mg Q24H PO 05/18/17 19:15 Future Hold 05/24/17 21:27 (Tylenol) 650 mg Q6H PRN PO 05/20/17 22:00 06/04/17 03:42 (D50w (Vial) Inj) 50 ml UNSCH PRN IV 05/22/17 13:15 (Glucagon Inj) 1 mg UNSCH PRN OTHER 05/22/17 13:15 (Mycostatin Liq) 5 ml QID SWISH-SWAL 05/22/17 21:00 06/04/17 08:24 Potassium Chloride 100 ml @ 50 mls/hr Q2H PRN IV 05/23/17 07:30 Potassium Chloride 100 ml @ 50 mls/hr Q2H PRN IV 05/23/17 07:30 06/04/17 08:24 (K-Lyte Cl Eff) 50 meq UNSCH PRN PO 05/23/17 07:30 05/30/17 05:05 Potassium Chloride 100 ml @ 25 mls/hr UNSCH PRN IV 05/23/17 07:30 Potassium Chloride 100 ml @ 50 mls/hr Q2H PRN IV 05/23/17 07:30 Magnesium Sulfate 4 gm/Sodium Chloride 100 ml @ 50 mls/hr UNSCH PRN IV 05/23/17 07:30 (Mag-Ox) 800 mg UNSCH PRN PO 05/23/17 07:30 Magnesium Sulfate 2 gm/Sodium Chloride 100 ml @ 50 mls/hr UNSCH PRN IV 05/23/17 07:30 (K-Phos) 2,000 mg Q4H PRN PO 05/23/17 07:30 Sodium Phosphate 30 mmol/Sodium Chloride 250 ml @ 42 mls/hr UNSCH PRN IV 05/23/17 07:30 05/23/17 14:50 (K-Phos) 2,000 mg UNSCH PRN PO/TUBE 05/23/17 07:30 Potassium Phosphate 30 mmol/ Sodium Chloride 260 ml @ 42 mls/hr UNSCH PRN IV 05/23/17 07:30 (Tears Naturale Opth Soln) 1 drop Q8HR EACH EYE 05/24/17 14:00 06/04/17 06:00 (Albuterol Neb) 2.5 mg Q2HR NEB PRN NEB 05/24/17 09:30 06/02/17 14:56 (Apresoline Inj) 10 mg Q1HR PRN IV PUSH 05/24/17 11:30 06/03/17 21:35 (Nitroglycerin 2% Oint) 2 inch Q6HR PRN TOPICAL 05/24/17 11:30 05/25/17 09:01 (Heparin Inj) 5,000 units Q12HR SQ 05/24/17 21:00 06/04/17 08:17 (Brilinta) 90 mg BID PO 05/24/17 21:00 06/04/17 08:22 (Ecotrin Ec) 81 mg DAILY PO 05/25/17 09:00 06/04/17 08:18 (Bumex Inj) 1 mg BID@09,18 IV PUSH 05/25/17 18:00 Future Hold 05/28/17 10:00 (Racepinephrine 2.25% Neb) 0.5 ml Q2HR NEB PRN NEB 05/26/17 15:30 05/30/17 19:53 (Robitussin Liq) 200 mg Q6H PRN PO 05/27/17 00:45 05/31/17 22:15 (Dulcolax Supp) 10 mg DAILY PRN RECTAL 05/27/17 07:00 06/03/17 20:56 (Coreg) 12.5 mg BID PO 05/27/17 09:00 Future Hold 06/02/17 08:54 (Catapres) 0.3 mg Q8H PO 05/28/17 17:00 06/04/17 08:22 (Pepcid) 10 mg BID PO 05/29/17 09:00 06/04/17 08:17 (Bumex Inj) 1 mg BID@,18 IV PUSH 06/02/17 18:00 06/04/17 08:17 (Apresoline Inj) 10 mg Q30M PRN IV PUSH 06/03/17 19:30 06/03/17 22:10 (Levemir Inj) 10 units Q12HR SQ 06/03/17 21:00 06/04/17 08:16 (NovoLOG INJ) 7 units TIDPC SQ 06/04/17 09:30 06/04/17 08:15 (NovoLOG SUPPLEMENTAL SCALE) 1 ACHS SLIDING SCALE SQ 06/03/17 21:00 06/04/17 11:00 (Fleet Mineral Oil Enema) 118 ml ONCE ONCE RECTAL 06/04/17 11:15 06/04/17 11:16 UNV (KCl Powder) 40 meq ONCE ONCE PO 06/04/17 11:15 06/04/17 11:16 UNV (Deltasone) 20 mg BID PO 06/04/17 11:15 UNV Sodium Chloride 250 ml @ 250 mls/hr BOLUS ONCE IV 06/04/17 11:30 06/04/17 12:29 UNV Vancomycin HCl 1000 mg/Sodium Chloride 250 ml @ 250 mls/hr Q24H IV 06/04/17 11:30 UNV Piperacillin Sod/ Tazobactam Sod 50 ml @ 100 mls/hr Q8H IV 06/04/17 11:30 UNV Urinary Catheter: No A/P Problem List: (1) Acute hypoxemic respiratory failure ICD Code: J96.01 - Acute respiratory failure with hypoxia Status: Acute (2) Respiratory distress ICD Code: R06.00 - Dyspnea, unspecified Status: Acute (3) Ischemic cardiomyopathy ICD Code: I25.5 - Ischemic cardiomyopathy Status: Acute (4) Acute diastolic heart failure ICD Code: I50.31 - Acute diastolic (congestive) heart failure Status: Acute (5) EZ (acute kidney injury) ICD Code: N17.9 - Acute kidney failure, unspecified Status: Acute (6) CKD (chronic kidney disease), stage III ICD Code: N18.3 - Chronic kidney disease, stage 3 (moderate) Status: Chronic (7) Pulmonary edema ICD Code: J81.1 - Chronic pulmonary edema Status: Acute (8) High degree atrioventricular block ICD Code: I44.39 - Other atrioventricular block Status: Resolved (9) CAD (coronary artery disease) ICD Code: I25.10 - Atherosclerotic heart disease of [place] coronary artery without angina pectoris Status: Chronic (10) NSTEMI (non-ST elevated myocardial infarction) ICD Code: I21.4 - Non-ST elevation (NSTEMI) myocardial infarction Status: Resolved (11) Encephalopathy acute ICD Code: G93.40 - Encephalopathy, unspecified Status: Resolved (12) Constipation ICD Code: K59.00 - Constipation, unspecified Status: Acute Assessment and Plan NEURO/Psych: Depression disorder Anxiety disorder Chronic benzodiazepine use Encephalopathy - resolved Initially Patient on sedatives - Ativan which was discontinued since patient lethargic. Acetaminophen 650 mg by mouth every 6 hours when necessary fever/pain Respiratory: Acute hypercapnic hypoxic Respiratory failure HCAP Pulmonary edema (Cardiogenic vs ARDS) Extubated 05/26. On NC. Cannot tolerate BiPAP Albuterol/Atrovent aerosols every 6 hours with albuterol aerosols every 2 hours PRN, EzPAP, Acapella, IS s/p dexamethasone 4 mg IV every 6 hours times x [address] chest 05/26: Bilateral extensive infiltrates pulmonary edema Cardiogenic vs ARDS, doubt infection Observe off ABX CXR 05/30 stable to slightly improved 06/02 patient is status post IV Solu-Medrol and IV Bumex for respiratory distress and acute respiratory failure with bilateral wheezing on exam. Patient respiratory status is much improved, continue IV Solu-Medrol but taper dose to every 8 hours. Continue supplemental oxygen to keep oxygen saturations more than 92%. Patient continues to be a febrile and is being followed by infectious disease recommended to monitor off antibiotics, which I agree. Bilateral patchy infiltrates could possibly be secondary to pulmonary edema. I will start the patient IV Bumex 1 mg IV twice a day. 06/03 Continue IV Solumedrol, decrease frequency to every 12 hours. Continue IV Bumex. Repeat CXR in am. 06/04 DC IV Solumedrol - Start on prednisone. I will also start the patient on IV zosyn and IV vancomycin for HCAP/ aspiration pneumonia since patient still tachypneic with good air movement and without signs of fluid overload and still having elevated o2 requirements, leukocytosis worsening despite decreasing steroids. Repeat CXR shows presence of BL infiltrates. Discussed with Dr Bolaños who agrees with the plan. CV: NSTEMI Pulmonary edema High degree AV block-now resolved Dyslipidemia Hypertension Hypotension 05/17 Status post angioplasty and stents of the distal LAD and mid LAD, and angioplasty and stenting of the proximal/ostial RCA Echocardiogram revealed EF 60-65%. Asymmetric septal hypertrophy. Trace MR. Carvedilol to 12.5 mg by mouth twice a day for hypertension 05/26. Holding lisinopril 10 mg daily due to EZ Clonidine 0.3 mg q8 and hydralazine 50 mg ill grams 3 times a day Temporary Pacemaker is been removed 05/18 Aspirin 81 mg by mouth daily, Ticagrelor 90 mg by mouth twice a day for stent Atorvastatin 80 mg by mouth daily for dyslipidemia. Holding fish oil/ cholecalciferol 1000/100 3 tablets twice a day DCd Bumex gtt 0.5 mg per hour due to creat increasing (Home medications are losartan/hctz 300 mg/12.5 mg daily with additional hydrochlorothiazide 12.5 mg additional daily. Hypertension along with metoprolol 50 mg by mouth twice a day and clonidine 0.1 mg by mouth twice a day and Norvasc 5 mg twice a day and diltiazem 240 mg by mouth daily and hydralazine 10 mg 3 times a day) 06/04 DC IV Bumex - patient is total -11 liters negative and there are no signs of fluid overload on exam. Patient also hypotensive with sbp in the 80's, hold ID: Possible HCAP/aspiration PNA Oral thrush Bilateral infiltrate on chest x-ray most likely from pulmonary edema (ARDS vs cardiogenic)-these infiltrates present on CXR immediately after intubation, so VAP is unlikely. ALL cultures negative, doubt infectious etiology Monitor off all antibiotics. ID Dr. Godinez On nystatin swish and spit every 6 hours, Diflucan added 05/30 8 fiberoptic bronchoscopy with BAL no growth Legionella, pneumococcal, influenza A and B antigens- results negative Repeat urine and blood cultures no growth 06/04 Will start IV Vancomycin and IV Zosyn to treat suspected HCAP vs VAP vs aspiration PNA since patient was encephalopathic. Consult pharmacy to help with dosing. Endo Diabetes mellitus Insulin sliding scale with NovoLog, low dose regimen. Holding metformin 750 mg twice a day/home medication 06/02 blood sugar very elevated and severely uncontrolled. I will start the patient on insulin Levemir 5 units subcutaneous twice a day and continue to cover elevated blood sugars with subcutaneous sliding insulin. 06/03 Blood sugars still severely uncontrolled due to steroid use. Will increase levemir t o 10 units SQ every 12 hrs and start on prandial insulin Novolog coverage. Increase SSI scale to medium. Renal Chronic kidney disease stage 3 - Creatinine 1.27 - 1.48, improving. UO -1.7L in 24 hours - Monitor I's and O 06/01 replace Garcia catheter since patient has a decubitus wound and is in ICU getting diuretics. 06/02 Creatinine is slowly trending down. 06/04 Creatinine slightly elevated today from 1.38 to 1.48. Continue to monitor BMP, strict input and output. DC diuretics for now. GI Constipation 06/04 I will order a mineral oil enema and stool softeners. GI prophylaxis Pepcid DVT- Teds, SCDs, heparin subcutaneous Discussed with RN and patient and patient's daughter at bedside. Discharge Planning Continue to monitor in intensive care unit. Patient hypotensive, still having elevated requirements of oxygen. Damon Orellana MD Jun 04, 2017 12:15
[2017-06-04] MEDS: predniSONE 20 MG TAB PO SCH ×2 (13:53→21:01)
[2017-06-04] MEDS: PIPERACIL-TAZO 2.25 GM PREMIX 50 ML IV SCH (14:23)
[2017-06-04] MEDS ORDERED: VANCOMYCIN INJ 1,000 MG in SODIUM CHLOR 0.9% 250 ML INJ 250 ML IV SCH (15:00)
[2017-06-04] MEDS ORDERED: VANCOMYCIN INJ 1,250 MG in SODIUM CHLOR 0.9% 250 ML INJ 250 ML IV ONE (16:00)
--- NOTE | 2017-06-04 19:27 | HHI.PR ---
Subjective Remarks Still weak and on 40 % Fio2. Has a cough. No fever. WBC up to 19 K CXR still shows bilateral infiltrates. Objective Vital Signs Date Time Temp Pulse Resp B/P (MAP) Pulse Ox O2 Delivery O2 Flow Rate FiO2 06/04/17 18:00 55 06/04/17 16:31 52 26 121/56 (77) 94 06/04/17 16:00 53 06/04/17 16:00 98.5 56 24 131/58 (82) 94 06/04/17 15:31 55 27 120/55 (76) 94 06/04/17 15:00 57 06/04/17 15:00 56 28 104/49 (67) 92 06/04/17 14:30 59 29 145/65 (91) 93 06/04/17 14:00 60 26 127/58 (81) 92 06/04/17 14:00 60 06/04/17 13:30 60 34 126/88 (101) 92 06/04/17 13:00 58 29 125/56 (79) 91 06/04/17 13:00 58 06/04/17 12:31 55 29 103/49 (67) 92 06/04/17 12:00 58 06/04/17 12:00 99.0 58 30 114/56 (75) 91 06/04/17 11:31 57 28 114/57 (76) 91 06/04/17 11:31 57 06/04/17 11:22 59 32 97/54 (68) 91 06/04/17 11:00 57 31 91/44 (60) 90 06/04/17 11:00 57 06/04/17 10:32 61 30 81/43 (56) 88 06/04/17 10:31 56 34 83/41 (55) 87 06/04/17 10:01 58 06/04/17 10:00 58 06/04/17 10:00 58 31 86/50 (62) 90 06/04/17 09:34 95 Nasal Cannula 4.00 06/04/17 09:31 58 31 102/51 (68) 90 06/04/17 09:01 58 28 128/57 (80) 92 06/04/17 09:01 58 06/04/17 09:00 58 30 91 06/04/17 09:00 58 06/04/17 08:30 61 29 131/60 (83) 92 06/04/17 08:30 61 06/04/17 08:01 59 06/04/17 08:00 59 06/04/17 08:00 97.9 59 28 131/63 (85) 93 06/04/17 07:30 60 25 154/63 (93) 92 06/04/17 07:30 60 06/04/17 07:00 59 27 140/70 (93) 94 06/04/17 07:00 59 06/04/17 06:00 57 06/04/17 04:00 62 06/04/17 04:00 98.6 62 27 156/67 (96) 89 06/04/17 02:00 60 06/04/17 00:00 98.5 60 23 155/70 (98) 92 06/04/17 00:00 60 06/03/17 22:00 62 06/03/17 20:03 94 Nasal Cannula 4.00 06/03/17 20:00 98.7 58 25 184/100 (128) 94 06/03/17 20:00 58 I/O 06/03/17 06/03/17 06/03/17 06/04/17 06/04/17 06/04/17 07:00 15:00 23:00 07:00 15:00 23:00 Intake Total 100 ml 800 ml 250 ml 315 ml Output Total 450 ml 675 ml Balance -350 ml 125 ml 250 ml 315 ml Intake Oral 100 ml 800 ml IV Total 250 ml 315 ml Output Urine Total 450 ml 675 ml Stool Total 0 ml 0 ml Result Diagram: 06/04/17 0426 06/04/17 042 Objective Remarks GENERAL: This averagely built elderly lady who is sitting upright, pale and dyspneic. HEENT: Head normocephalic. Pupils are reactive. Tongue is moist. Throat was clear. NECK: Supple. No venous distension. No thyromegaly or lymphadenopathy. CHEST: Distant breath sounds with occasional wheezes in the upper lung boyer. There are crackles heard at both lung bases. HEART: The heart sounds are irregular, S1-S2. No murmur. No S3. ABDOMEN: Abdomen is soft, protuberant without masses. No organomegaly or tenderness. Bowel sounds are active. EXTREMITIES: No edema. Mild varicosities. Reflexes are 1 +with no gross motor deficits. NEURO:No deficit SKIN: Skin was warm and dry. Assessment and Plan Assessment and Plan IMPRESSION 1. Acute respiratory failure, resolving. 2. Bilateral pulmonary infiltrates with pulmonary edema versus atypical pneumonia. 3. Status post coronary artery stenting with acute coronary syndrome. 4. History of diabetes mellitus type 2. 5. Hypertension and hyperlipidemia. 6. High degree AV block, resolved. Plan : 1. Wean o2 to keep sat >92. 2. Continue diuretics daily. 3. IS at bedside q3h. 4. Nebs qid , duoneb. 5. Add Antibiotics Zosyn, Vanco and reculture. 6. Prednisone 20 mg bid and taper . 7. Bipap at HS 12/5 CM, 35 % Fio2 8. D/W Missy Glass MD Jun 04, 2017 19:26
[2017-06-04] MEDS: ATORVASTATIN 10 MG TAB PO SCH (21:01)
[2017-06-05] VITALS (19 sets, daily range): BP systolic 126–189; BP diastolic 59–84; PULSE 44–60; RESP 18–31; TEMP 97.9–98.3; O2SAT 83–99
[2017-06-05] MEDS: PIPERACIL-TAZO 2.25 GM PREMIX 50 ML IV SCH ×4 (00:19→23:25)
[2017-06-05] MEDS: cloNIDine HCL 0.3 MG TAB PO SCH ×3 (00:19→16:30)
[2017-06-05] MEDS: ARTIFICIAL TEARS OPTH SOLN 15 ML BTL EACH EYE SCH ×3 (06:00→22:00)
[2017-06-05] MEDS: INSULIN ASPART SUPPLEMENTAL SCALE SQ SCH ×4 (06:48→21:00)
[2017-06-05] MEDS: CHLORHEXIDINE 0.12% (ORAL KIT) 15 ML CUP MT SCH ×2 (08:00→20:00)
[2017-06-05] MEDS: busPIRone HCL 10 MG TAB PO SCH ×2 (08:17→21:02)
[2017-06-05] MEDS: predniSONE 20 MG TAB PO SCH (08:17)
[2017-06-05] MEDS: FAMOTIDINE 20 MG TAB PO SCH ×2 (08:17→21:09)
[2017-06-05] MEDS: HEPARIN SODIUM - SQ 10,000 UNITS/ML VIAL SQ SCH ×2 (08:17→21:09)
[2017-06-05] MEDS: NYSTATIN SUSP 500,000 U/5 ML CUP SWISH-SWAL SCH ×4 (08:17→21:09)
[2017-06-05] MEDS: TICAGRELOR 90 MG TAB PO SCH ×2 (08:17→21:02)
[2017-06-05] MEDS: ASPIRIN EC 81 MG TABEC PO SCH (08:18)
[2017-06-05] MEDS: SODIUM CHLORIDE 0.9% FLUSH 10 ML FLUSH IV FLUSH SCH ×2 (08:18→21:10)
[2017-06-05] MEDS: INSULIN DETEMIR 100 UNITS/ML VIAL SQ SCH ×2 (08:19→21:03)
[2017-06-05] MEDS: INSULIN ASPART 1,000 UNITS/10 ML VIAL SQ SCH ×3 (08:19→18:30)
[2017-06-05 08:26] LABS: AUTOMATED NEUTROPHIL # 11.1 TH/MM3 (1.8-7.7); BASOPHIL % 0.1 % (0.0-2.0); HEMATOCRIT 27.9 % (35.0-46.0); HEMO FLAGS DIFF FINAL; LYMPH % 7.5 % (9.0-44.0); LYMPHOCYTE # 0.9 TH/MM3 (1.0-4.8); MEAN CELL VOLUME 85.1 FL (80.0-100.0); MEAN CORPUSCULAR HEMOGLOBIN 27.3 PG (27.0-34.0); MEAN CORPUSCULAR HGB CONC 32.1 % (32.0-36.0); MONO % 3.9 % (0.0-8.0); NEUT % 88.5 % (16.0-70.0); PLATELET COUNT 367 TH/MM3 (150-450); RED BLOOD COUNT 3.28 MIL/MM3 (4.00-5.30); RED CELL DISTRIBUTION WIDTH 16.2 % (11.6-17.2); WHITE BLOOD COUNT 12.5 TH/MM3 (4.0-11.0)
[2017-06-05 08:57] LABS: ALKALINE PHOSPHATASE 65 U/L (45-117); ALT (GPT) 41 U/L (10-53); ANION GAP 10 MEQ/L (5-15); AST (GOT) 26 U/L (15-37); BICARBONATE 25.4 MEQ/L (21.0-32.0); BLOOD UREA NITROGEN 45 MG/DL (7-18); CHLORIDE 102 MEQ/L (98-107); GLOMERULAR FILTRATION RATE 43 ML/MIN (>89); MAGNESIUM 2.3 MG/DL (1.5-2.5); POTASSIUM 4.5 MEQ/L (3.5-5.1); SODIUM (NA) 137 MEQ/L (136-145); TOTAL BILIRUBIN ADULT 0.7 MG/DL (0.2-1.0)
[2017-06-05] MEDS: amLODIPine BESYLATE 5 MG TAB PO SCH (11:40)
--- NOTE | 2017-06-05 15:57 | HHI.PR ---
Subjective Remarks Deferred entry - patient seen earlier at 11:00 am Patient feels very tired and weak denies cp sob is much improved [place] on telemetry Objective Vitals Vital Signs Date Time Temp Pulse Resp B/P (MAP) Pulse Ox O2 Delivery O2 Flow Rate FiO2 06/05/17 14:00 54 06/05/17 13:00 60 06/05/17 12:00 97.9 50 25 172/76 (108) 96 06/05/17 12:00 55 06/05/17 11:00 54 06/05/17 11:00 52 27 189/80 (116) 96 06/05/17 10:29 98 Nasal Cannula 3.00 06/05/17 10:00 56 24 139/60 (86) 94 06/05/17 10:00 50 06/05/17 09:00 44 06/05/17 09:00 49 31 160/65 (96) 99 06/05/17 08:00 98.3 53 29 126/60 (82) 94 06/05/17 08:00 51 06/05/17 07:00 53 31 137/59 (85) 83 06/05/17 06:00 50 06/05/17 04:00 51 06/05/17 04:00 98.1 51 22 171/73 (105) 94 06/05/17 02:00 50 06/05/17 00:00 53 06/05/17 00:00 98.0 53 20 159/70 (99) 95 06/04/17 23:18 95 Nasal Cannula 3.00 06/04/17 22:00 53 06/04/17 20:00 97.8 56 20 146/67 (93) 96 06/04/17 20:00 56 06/04/17 18:00 55 06/04/17 16:31 52 26 121/56 (77) 94 06/04/17 16:00 53 06/04/17 16:00 98.5 56 24 131/58 (82) 94 I/O 06/04/17 06/04/17 06/04/17 06/05/17 06/05/17 06/05/17 06:59 14:59 22:59 06:59 14:59 22:59 Intake Total 265 ml 300 ml 863 ml 50 ml Output Total 1350 ml Balance 265 ml 300 ml -487 ml 50 ml Intake Oral 480 ml IV Total 265 ml 300 ml 383 ml 50 ml Output Urine Total 1350 ml # Bowel Movements 1 Result Diagram: 06/05/17 0809 06/05/17 0809 Imaging Last Impressions Chest X-Ray 06/04/17 0600 Signed Impressions: Service Date/Time: Sunday, June 04, 2017 03:01 - CONCLUSION: 1. Patchy bilateral air space disease similar to June 01. No significant effusion. Hector Montelongo MD Chest CT 05/26/17 0000 Signed Impressions: Service Date/Time: Friday, May 26, 2017 09:31 - CONCLUSION: 1. Multiple patchy areas of consolidation of both lungs which could indicate pulmonary edema. 2. Small bilateral pleural effusions right greater than left. 3. Mediastinal adenopathy and questionable mild hilar adenopathy. 4. Mild cardiomegaly. Bandar Pruitt MD Objective Remarks GENERAL: Well-nourished, well-developed patient, awake, on nasal canula, not in respiratory distress SKIN: Warm and dry. Pressure injury to sacral area HEAD: Normocephalic. EYES: Pupils are equally round and reactive to light and accommodation. No scleral icterus. No injection or drainage. NECK: Supple, trachea midline. No JVD or lymphadenopathy. CARDIOVASCULAR: RRR. S1, S2. No S4. Without murmur RESPIRATORY: There are crackles on BL lower lung boyer more pronounced on the left side. No rhonchi or wheezing auscultated. GASTROINTESTINAL: Abdomen soft, protuberant, non-tender, hypoactive bowel sounds. Thrush lateral distal tongue MUSCULOSKELETAL: Trace nonpitting lower extremity edema bilaterally. BACK: Nontender without obvious deformity. NEURO: Alert oriented. normal speech. Moves all 4 extremity spontaneously to command. Medications and IVs Current Medications Medications (Trade) Dose Ordered Sig/Renaldo Route Start Time Stop Time Status Last Admin (NS Flush) 2 ml UNSCH PRN IV FLUSH 05/17/17 00:30 (NS Flush) 2 ml BID IV FLUSH 05/17/17 09:00 06/05/17 08:18 (Narcan Inj) 0.4 mg UNSCH PRN IV 05/17/17 00:30 Miscellaneous Information Patient in critical care unit? Ass... Q361D .XX 05/17/17 02:45 (Buspar) 30 mg BID PO 05/17/17 09:00 06/05/17 08:17 (Cardizem Cd) 240 mg DAILY PO 05/17/17 09:00 Future Hold 05/17/17 07:48 (Glucophage) 750 mg BIDPC PO 05/17/17 09:00 Future Hold 05/17/17 16:32 (Cozaar) 100 mg DAILY PO 05/17/17 09:00 Future hold 05/17/17 07:47 (Hydrodiuril) 12.5 mg DAILY PO 05/17/17 09:00 Future Hold 05/17/17 07:48 (Pill Splitter) 1 ea UNSCH PRN OTHER 05/17/17 05:30 (Nitrostat Sl) 0.4 mg Q5M PRN SL 05/17/17 09:15 05/17/17 09:28 (Tessalon) 100 mg TID PRN PO 05/17/17 09:15 05/31/17 17:15 (Lipitor) 80 mg HS PO 05/17/17 21:00 06/04/17 21:01 (Peridex 0.12% Liq) 15 ml BID@08,20 MT 05/18/17 20:00 06/03/17 20:33 (Prinivil) 10 mg Q24H PO 05/18/17 19:15 Future Hold 05/24/17 21:27 (Tylenol) 650 mg Q6H PRN PO 05/20/17 22:00 06/04/17 03:42 (D50w (Vial) Inj) 50 ml UNSCH PRN IV 05/22/17 13:15 (Glucagon Inj) 1 mg UNSCH PRN OTHER 05/22/17 13:15 (Mycostatin Liq) 5 ml QID SWISH-SWAL 05/22/17 21:00 06/05/17 14:16 (Tears Naturale Opth Soln) 1 drop Q8HR EACH EYE 05/24/17 14:00 06/05/17 06:00 (Albuterol Neb) 2.5 mg Q2HR NEB PRN NEB 05/24/17 09:30 06/02/17 14:56 (Apresoline Inj) 10 mg Q1HR PRN IV PUSH 05/24/17 11:30 06/03/17 21:35 (Nitroglycerin 2% Oint) 2 inch Q6HR PRN TOPICAL 05/24/17 11:30 05/25/17 09:01 (Heparin Inj) 5,000 units Q12HR SQ 05/24/17 21:00 06/05/17 08:17 (Brilinta) 90 mg BID PO 05/24/17 21:00 06/05/17 08:17 (Ecotrin Ec) 81 mg DAILY PO 05/25/17 09:00 06/05/17 08:18 (Racepinephrine 2.25% Neb) 0.5 ml Q2HR NEB PRN NEB 05/26/17 15:30 05/30/17 19:53 (Robitussin Liq) 200 mg Q6H PRN PO 05/27/17 00:45 05/31/17 22:15 (Dulcolax Supp) 10 mg DAILY PRN RECTAL 05/27/17 07:00 06/03/17 20:56 (Catapres) 0.3 mg Q8H PO 05/28/17 17:00 06/05/17 16:30 (Pepcid) 10 mg BID PO 05/29/17 09:00 06/05/17 08:17 (Apresoline Inj) 10 mg Q30M PRN IV PUSH 06/03/17 19:30 06/03/17 22:10 (Levemir Inj) 10 units Q12HR SQ 06/03/17 21:00 06/05/17 08:19 (NovoLOG INJ) 7 units TIDPC SQ 06/04/17 09:30 06/05/17 14:16 (NovoLOG SUPPLEMENTAL SCALE) 1 ACHS SLIDING SCALE SQ 06/03/17 21:00 06/05/17 16:31 Vancomycin HCl 1000 mg/Sodium Chloride 250 ml @ 250 mls/hr Q24H IV 06/04/17 15:00 Future Hold 06/04/17 14:36 Piperacillin Sod/ Tazobactam Sod 50 ml @ 100 mls/hr Q8H IV 06/04/17 14:00 06/05/17 14:16 Pharmacy Profile Note 0 ml @ 0 mls/hr UNSCH OTHER 06/04/17 11:30 (Deltasone) 20 mg DAILY PO 06/06/17 09:00 (Norvasc) 5 mg DAILY PO 06/05/17 11:15 06/05/17 11:40 Urinary Catheter: No Vascular Central Line Catheter: No A/P Problem List: (1) Acute hypoxemic respiratory failure ICD Code: J96.01 - Acute respiratory failure with hypoxia Status: Acute (2) Respiratory distress ICD Code: R06.00 - Dyspnea, unspecified Status: Acute (3) Ischemic cardiomyopathy ICD Code: I25.5 - Ischemic cardiomyopathy Status: Acute (4) Acute diastolic heart failure ICD Code: I50.31 - Acute diastolic (congestive) heart failure Status: Acute (5) EZ (acute kidney injury) ICD Code: N17.9 - Acute kidney failure, unspecified Status: Acute (6) CKD (chronic kidney disease), stage III ICD Code: N18.3 - Chronic kidney disease, stage 3 (moderate) Status: Chronic (7) Pulmonary edema ICD Code: J81.1 - Chronic pulmonary edema Status: Acute (8) High degree atrioventricular block ICD Code: I44.39 - Other atrioventricular block Status: Resolved (9) CAD (coronary artery disease) ICD Code: I25.10 - Atherosclerotic heart disease of [place] coronary artery without angina pectoris Status: Chronic (10) NSTEMI (non-ST elevated myocardial infarction) ICD Code: I21.4 - Non-ST elevation (NSTEMI) myocardial infarction Status: Resolved (11) Encephalopathy acute ICD Code: G93.40 - Encephalopathy, unspecified Status: Resolved (12) Constipation ICD Code: K59.00 - Constipation, unspecified Status: Acute (13) Critical illness myopathy ICD Code: G72.81 - Critical illness myopathy Status: Acute Assessment and Plan NEURO/Psych: Depression disorder Anxiety disorder Chronic benzodiazepine use Encephalopathy - resolved Initially Patient on sedatives - Ativan which was discontinued since patient lethargic. Acetaminophen 650 mg by mouth every 6 hours when necessary fever/pain Respiratory: Acute hypercapnic hypoxic Respiratory failure HCAP Pulmonary edema (Cardiogenic vs ARDS) Extubated 05/26. On NC. Cannot tolerate BiPAP Albuterol/Atrovent aerosols every 6 hours with albuterol aerosols every 2 hours PRN, EzPAP, Acapella, IS s/p dexamethasone 4 mg IV every 6 hours times x [address] chest 05/26: Bilateral extensive infiltrates pulmonary edema Cardiogenic vs ARDS, doubt infection Observe off ABX CXR 05/30 stable to slightly improved 06/02 patient is status post IV Solu-Medrol and IV Bumex for respiratory distress and acute respiratory failure with bilateral wheezing on exam. Patient respiratory status is much improved, continue IV Solu-Medrol but taper dose to every 8 hours. Continue supplemental oxygen to keep oxygen saturations more than 92%. Patient continues to be a febrile and is being followed by infectious disease recommended to monitor off antibiotics, which I agree. Bilateral patchy infiltrates could possibly be secondary to pulmonary edema. I will start the patient IV Bumex 1 mg IV twice a day. 06/03 Continue IV Solumedrol, decrease frequency to every 12 hours. Continue IV Bumex. Repeat CXR in am. 06/04 DC IV Solumedrol - Start on prednisone. I will also start the patient on IV zosyn and IV vancomycin for HCAP/ aspiration pneumonia since patient still tachypneic with good air movement and without signs of fluid overload and still having elevated o2 requirements, leukocytosis worsening despite decreasing steroids. Repeat CXR shows presence of BL infiltrates. Discussed with Dr Bolaños who agrees with the plan. 06/05 patient's respiratory status improving. Continue broad-spectrum IV antibiotics with IV Zosyn and IV vancomycin. Sputum culture pending. Leukocytosis seems to be improving. Repeat chest x-ray in a.m. taper dose of prednisone to daily. CV: NSTEMI Pulmonary edema High degree AV block-now resolved Dyslipidemia Hypertension Hypotension [place] 05/17 Status post angioplasty and stents of the distal LAD and mid LAD, and angioplasty and stenting of the proximal/ostial RCA Echocardiogram revealed EF 60-65%. Asymmetric septal hypertrophy. Trace MR. Carvedilol to 12.5 mg by mouth twice a day for hypertension 05/26. Holding lisinopril 10 mg daily due to EZ Clonidine 0.3 mg q8 and hydralazine 50 mg ill grams 3 times a day Temporary Pacemaker is been removed 05/18 Aspirin 81 mg by mouth daily, Ticagrelor 90 mg by mouth twice a day for stent Atorvastatin 80 mg by mouth daily for dyslipidemia. Holding fish oil/ cholecalciferol 1000/100 3 tablets twice a day DCd Bumex gtt 0.5 mg per hour due to creat increasing (Home medications are losartan/hctz 300 mg/12.5 mg daily with additional hydrochlorothiazide 12.5 mg additional daily. Hypertension along with metoprolol 50 mg by mouth twice a day and clonidine 0.1 mg by mouth twice a day and Norvasc 5 mg twice a day and diltiazem 240 mg by mouth daily and hydralazine 10 mg 3 times a day) 06/04 DC IV Bumex - patient is total -11 liters negative and there are no signs of fluid overload on exam. Patient also hypotensive with sbp in the 80's, hold 06/05 patient had one episode of bigem[place] on telemetry reviewed by me. Patient asymptomatic and chest pain-free. Keep magnesium above 2 and potassium above 4. Continue to monitor on telemetry. ID: Possible HCAP/aspiration PNA Oral thrush Bilateral infiltrate on chest x-ray most likely from pulmonary edema (ARDS vs cardiogenic)-these infiltrates present on CXR immediately after intubation, so VAP is unlikely. ALL cultures negative, doubt infectious etiology Monitor off all antibiotics. ID Dr. Godinez On nystatin swish and spit every 6 hours, Diflucan added 05/30 05/20 fiberoptic bronchoscopy with BAL no growth Legionella, pneumococcal, influenza A and B antigens- results negative Repeat urine and blood cultures no growth Continue IV Vancomycin and IV Zosyn to treat suspected HCAP vs VAP vs aspiration PNA since patient was encephalopathic. Consult pharmacy to help with dosing. Endo Diabetes mellitus Insulin sliding scale with NovoLog, low dose regimen. Holding metformin 750 mg twice a day/home medication 06/02 blood sugar very elevated and severely uncontrolled. I will start the patient on insulin Levemir 5 units subcutaneous twice a day and continue to cover elevated blood sugars with subcutaneous sliding insulin. 06/03 Blood sugars still severely uncontrolled due to steroid use. Will increase levemir t o 10 units SQ every 12 hrs and start on prandial insulin Novolog coverage. Increase SSI scale to medium. 06/05 blood sugars better controlled today. Continue basal bolus therapy as above. Continue coverage with SSI with insulin NovoLog. Renal Chronic kidney disease stage 3 - Creatinine 1.27 - 1.48, improving. UO -1.7L in 24 hours - Monitor I's and O 06/01 replace Garcia catheter since patient has a decubitus wound and is in ICU getting diuretics. 06/02 Creatinine is slowly trending down. 06/04 Creatinine slightly elevated today from 1.38 to 1.48. Continue to monitor BMP, strict input and output. DC diuretics for now. 06/05 creatinine is slowly trending down. Continue 1.2 today. GI Constipation 06/04 I will order a mineral oil enema and stool softeners. 06/05 constipation resolved. Continue stool softeners. MSK Weakness/Critical illness myopathy - Consult Pt, OOB to chair. GI prophylaxis Pepcid DVT- Teds, SCDs, heparin subcutaneous Discussed with RN and patient and patient's daughter at bedside. Discharge Planning ok to transfer to medical floor with telemetry. Damon Orellana MD Jun 05, 2017 15:57
--- NOTE | 2017-06-05 16:06 | PD.CARD.PN ---
Subjective Subjective Remarks No CP or excessive dyspnea, eating better Objective Medications Current Medications Medications (Trade) Dose Ordered Sig/Renaldo Route Start Time Stop Time Status Last Admin (NS Flush) 2 ml UNSCH PRN IV FLUSH 05/17/17 00:30 (NS Flush) 2 ml BID IV FLUSH 05/17/17 09:00 06/05/17 08:18 (Narcan Inj) 0.4 mg UNSCH PRN IV 05/17/17 00:30 Miscellaneous Information Patient in critical care unit? Ass... Q361D .XX 05/17/17 02:45 (Buspar) 30 mg BID PO 05/17/17 09:00 06/05/17 08:17 (Cardizem Cd) 240 mg DAILY PO 05/17/17 09:00 Future Hold 05/17/17 07:48 (Glucophage) 750 mg BIDPC PO 05/17/17 09:00 Future Hold 05/17/17 16:32 (Cozaar) 100 mg DAILY PO 05/17/17 09:00 Future hold 05/17/17 07:47 (Hydrodiuril) 12.5 mg DAILY PO 05/17/17 09:00 Future Hold 05/17/17 07:48 (Pill Splitter) 1 ea UNSCH PRN OTHER 05/17/17 05:30 (Nitrostat Sl) 0.4 mg Q5M PRN SL 05/17/17 09:15 05/17/17 09:28 (Tessalon) 100 mg TID PRN PO 05/17/17 09:15 05/31/17 17:15 (Lipitor) 80 mg HS PO 05/17/17 21:00 06/04/17 21:01 (Peridex 0.12% Liq) 15 ml BID@08,20 MT 05/18/17 20:00 06/03/17 20:33 (Prinivil) 10 mg Q24H PO 05/18/17 19:15 Future Hold 05/24/17 21:27 (Tylenol) 650 mg Q6H PRN PO 05/20/17 22:00 06/04/17 03:42 (D50w (Vial) Inj) 50 ml UNSCH PRN IV 05/22/17 13:15 (Glucagon Inj) 1 mg UNSCH PRN OTHER 05/22/17 13:15 (Mycostatin Liq) 5 ml QID SWISH-SWAL 05/22/17 21:00 06/05/17 14:16 Potassium Chloride 100 ml @ 50 mls/hr Q2H PRN IV 05/23/17 07:30 Potassium Chloride 100 ml @ 50 mls/hr Q2H PRN IV 05/23/17 07:30 06/04/17 08:24 (K-Lyte Cl Eff) 50 meq UNSCH PRN PO 05/23/17 07:30 05/30/17 05:05 Potassium Chloride 100 ml @ 25 mls/hr UNSCH PRN IV 05/23/17 07:30 Potassium Chloride 100 ml @ 50 mls/hr Q2H PRN IV 05/23/17 07:30 Magnesium Sulfate 4 gm/Sodium Chloride 100 ml @ 50 mls/hr UNSCH PRN IV 05/23/17 07:30 (Mag-Ox) 800 mg UNSCH PRN PO 05/23/17 07:30 Magnesium Sulfate 2 gm/Sodium Chloride 100 ml @ 50 mls/hr UNSCH PRN IV 05/23/17 07:30 (K-Phos) 2,000 mg Q4H PRN PO 05/23/17 07:30 Sodium Phosphate 30 mmol/Sodium Chloride 250 ml @ 42 mls/hr UNSCH PRN IV 05/23/17 07:30 05/23/17 14:50 (K-Phos) 2,000 mg UNSCH PRN PO/TUBE 05/23/17 07:30 Potassium Phosphate 30 mmol/ Sodium Chloride 260 ml @ 42 mls/hr UNSCH PRN IV 05/23/17 07:30 (Tears Naturale Opth Soln) 1 drop Q8HR EACH EYE 05/24/17 14:00 06/05/17 06:00 (Albuterol Neb) 2.5 mg Q2HR NEB PRN NEB 05/24/17 09:30 06/02/17 14:56 (Apresoline Inj) 10 mg Q1HR PRN IV PUSH 05/24/17 11:30 06/03/17 21:35 (Nitroglycerin 2% Oint) 2 inch Q6HR PRN TOPICAL 05/24/17 11:30 05/25/17 09:01 (Heparin Inj) 5,000 units Q12HR SQ 05/24/17 21:00 06/05/17 08:17 (Brilinta) 90 mg BID PO 05/24/17 21:00 06/05/17 08:17 (Ecotrin Ec) 81 mg DAILY PO 05/25/17 09:00 06/05/17 08:18 (Racepinephrine 2.25% Neb) 0.5 ml Q2HR NEB PRN NEB 05/26/17 15:30 05/30/17 19:53 (Robitussin Liq) 200 mg Q6H PRN PO 05/27/17 00:45 05/31/17 22:15 (Dulcolax Supp) 10 mg DAILY PRN RECTAL 05/27/17 07:00 06/03/17 20:56 (Catapres) 0.3 mg Q8H PO 05/28/17 17:00 06/05/17 08:17 (Pepcid) 10 mg BID PO 05/29/17 09:00 06/05/17 08:17 (Apresoline Inj) 10 mg Q30M PRN IV PUSH 06/03/17 19:30 06/03/17 22:10 (Levemir Inj) 10 units Q12HR SQ 06/03/17 21:00 06/05/17 08:19 (NovoLOG INJ) 7 units TIDPC SQ 06/04/17 09:30 06/05/17 14:16 (NovoLOG SUPPLEMENTAL SCALE) 1 ACHS SLIDING SCALE SQ 06/03/17 21:00 06/05/17 11:38 Vancomycin HCl 1000 mg/Sodium Chloride 250 ml @ 250 mls/hr Q24H IV 06/04/17 15:00 Future Hold 06/04/17 14:36 Piperacillin Sod/ Tazobactam Sod 50 ml @ 100 mls/hr Q8H IV 06/04/17 14:00 06/05/17 14:16 Pharmacy Profile Note 0 ml @ 0 mls/hr UNSCH OTHER 06/04/17 11:30 (Deltasone) 20 mg DAILY PO 06/06/17 09:00 (Norvasc) 5 mg DAILY PO 06/05/17 11:15 06/05/17 11:40 Vital Signs / I&O Vital Signs Date Time Temp Pulse Resp B/P (MAP) Pulse Ox O2 Delivery O2 Flow Rate FiO2 06/05/17 14:00 54 06/05/17 13:00 60 8/22/17 12:00 97.9 50 25 172/76 (108) 96 06/05/17 12:00 55 06/05/17 11:00 54 06/05/17 11:00 52 27 189/80 (116) 96 06/05/17 10:29 98 Nasal Cannula 3.00 06/05/17 10:00 56 24 139/60 (86) 94 06/05/17 10:00 50 06/05/17 09:00 44 06/05/17 09:00 49 31 160/65 (96) 99 06/05/17 08:00 98.3 53 29 126/60 (82) 94 06/05/17 08:00 51 06/05/17 07:00 53 31 137/59 (85) 83 06/05/17 06:00 50 06/05/17 04:00 51 06/05/17 04:00 98.1 51 22 171/73 (105) 94 06/05/17 02:00 50 06/05/17 00:00 53 06/05/17 00:00 98.0 53 20 159/70 (99) 95 06/04/17 23:18 95 Nasal Cannula 3.00 06/04/17 22:00 53 06/04/17 20:00 97.8 56 20 146/67 (93) 96 06/04/17 20:00 56 06/04/17 18:00 55 06/04/17 16:31 52 26 121/56 (77) 94 I/O 06/04/17 06/04/17 06/04/17 06/05/17 06/05/17 06/05/17 06:59 14:59 22:59 06:59 14:59 22:59 Intake Total 265 ml 300 ml 863 ml 50 ml Output Total 1350 ml Balance 265 ml 300 ml -487 ml 50 ml Intake Oral 480 ml IV Total 265 ml 300 ml 383 ml 50 ml Output Urine Total 1350 ml # Bowel Movements 1 Physical Exam GENERAL: In NAD SKIN: Warm and dry. HEAD: Normocephalic. EYES: No scleral icterus. No injection or drainage. NECK: Supple, trachea midline. No JVD or lymphadenopathy. CARDIOVASCULAR: Regular rate and rhythm without murmurs, gallops, or rubs. RESPIRATORY: Breath sounds equal bilaterally. No accessory muscle use. GASTROINTESTINAL: Abdomen soft, non-tender, nondistended. MUSCULOSKELETAL: No cyanosis, or edema. Groin stable Laboratory Laboratory Tests Test 06/05/17 08:09 White Blood Count 12.5 TH/MM3 Red Blood Count 3.28 MIL/MM3 Hemoglobin 8.9 GM/DL Hematocrit 27.9 % Mean Corpuscular Volume 85.1 FL Mean Corpuscular Hemoglobin 27.3 PG Mean Corpuscular Hemoglobin Concent 32.1 % Red Cell Distribution Width 16.2 % Platelet Count 367 TH/MM3 Mean Platelet Volume 7.1 FL Neutrophils (%) (Auto) 88.5 % Lymphocytes (%) (Auto) 7.5 % Monocytes (%) (Auto) 3.9 % Eosinophils (%) (Auto) 0.0 % Basophils (%) (Auto) 0.1 % Neutrophils # (Auto) 11.1 TH/MM3 Lymphocytes # (Auto) 0.9 TH/MM3 Monocytes # (Auto) 0.5 TH/MM3 Eosinophils # (Auto) 0.0 TH/MM3 Basophils # (Auto) 0.0 TH/MM3 CBC Comment DIFF FINAL Differential Comment Blood Urea Nitrogen 45 MG/DL Creatinine 1.22 MG/DL Random Glucose 158 MG/DL Total Protein 6.7 GM/DL Albumin 2.6 GM/DL Calcium Level 8.5 MG/DL Phosphorus Level 3.4 MG/DL Magnesium Level 2.3 MG/DL Alkaline Phosphatase 65 U/L Aspartate Amino Transf (AST/SGOT) 26 U/L Alanine Aminotransferase (ALT/SGPT) 41 U/L Total Bilirubin 0.7 MG/DL Sodium Level 137 MEQ/L Potassium Level 4.5 MEQ/L Chloride Level 102 MEQ/L Carbon Dioxide Level 25.4 MEQ/L Anion Gap 10 MEQ/L Estimat Glomerular Filtration Rate 43 ML/MIN Imaging Last Impressions Chest X-Ray 06/04/17 0600 Signed Impressions: Service Date/Time: Sunday, June 04, 2017 03:01 - CONCLUSION: 1. Patchy bilateral air space disease similar to June 01. No significant effusion. Hector Montelongo MD Chest CT 05/26/17 0000 Signed Impressions: Service Date/Time: Friday, May 26, 2017 09:31 - CONCLUSION: 1. Multiple patchy areas of consolidation of both lungs which could indicate pulmonary edema. 2. Small bilateral pleural effusions right greater than left. 3. Mediastinal adenopathy and questionable mild hilar adenopathy. 4. Mild cardiomegaly. Bandar Pruitt MD Assessment and Plan Problem List: (1) Acute CHF (congestive heart failure) ICD Codes: I50.9 - Heart failure, unspecified Status: Acute (2) NSTEMI (non-ST elevated myocardial infarction) ICD Codes: I21.4 - Non-ST elevation (NSTEMI) myocardial infarction Status: Resolved (3) CAD (coronary artery disease) ICD Codes: I25.10 - Atherosclerotic heart disease of [place] coronary artery without angina pectoris Status: Chronic (4) High degree atrioventricular block ICD Codes: I44.39 - Other atrioventricular block Status: Resolved (5) Respiratory failure ICD Codes: J96.90 - Respiratory failure, unspecified, unspecified whether with hypoxia or hypercapnia Status: Acute (6) PNA (pneumonia) ICD Codes: J18.9 - Pneumonia, unspecified organism Status: Acute (7) Ischemic cardiomyopathy ICD Codes: I25.5 - Ischemic cardiomyopathy Status: Acute Assessment and Plan No new cardiac issues. Rhythm stable. Continue Brilinta and baby ASA to prevent stent thrombosis. Renal fx remains stable. Continue carvedilol and lisinopril for BP control. Increase activity, PT. Slow progress, but stable from cardiac standpoint. D/w pt and daughter. F/u w Dr. Roa after discharge. Problem Qualifiers (1) PNA (pneumonia): Mg Daly MD Jun 05, 2017 16:06
--- NOTE | 2017-06-05 18:38 | HHI.PR ---
Subjective Remarks Much better today. Has less cough. No fever. On O2 3L. Sats 97 CXR still shows bilateral infiltrates.On Vanco/ Zosyn. Objective Vital Signs Date Time Temp Pulse Resp B/P (MAP) Pulse Ox O2 Delivery O2 Flow Rate FiO2 06/05/17 16:11 51 06/05/17 16:00 50 06/05/17 16:00 50 22 94 06/05/17 15:00 53 06/05/17 15:00 98.2 53 26 149/66 (93) 94 06/05/17 14:00 54 06/05/17 13:00 60 06/05/17 12:00 97.9 50 25 172/76 (108) 96 06/05/17 12:00 55 06/05/17 11:00 54 06/05/17 11:00 52 27 189/80 (116) 96 06/05/17 10:29 98 Nasal Cannula 3.00 06/05/17 10:00 56 24 139/60 (86) 94 06/05/17 10:00 50 06/05/17 09:00 44 06/05/17 09:00 49 31 160/65 (96) 99 06/05/17 08:00 98.3 53 29 126/60 (82) 94 06/05/17 08:00 51 06/05/17 07:00 53 31 137/59 (85) 83 06/05/17 06:00 50 06/05/17 04:00 51 06/05/17 04:00 98.1 51 22 171/73 (105) 94 06/05/17 02:00 50 06/05/17 00:00 53 06/05/17 00:00 98.0 53 20 159/70 (99) 95 06/04/17 23:18 95 Nasal Cannula 3.00 06/04/17 22:00 53 06/04/17 20:00 97.8 56 20 146/67 (93) 96 06/04/17 20:00 56 I/O 06/04/17 06/04/17 06/04/17 06/05/17 06/05/17 06/05/17 07:00 15:00 23:00 07:00 15:00 23:00 Intake Total 315 ml 250 ml 863 ml 50 ml 480 ml Output Total 1350 ml 900 ml Balance 315 ml 250 ml -487 ml 50 ml -420 ml Intake Oral 480 ml 480 ml IV Total 315 ml 250 ml 383 ml 50 ml Output Urine Total 1350 ml 900 ml Stool Total 0 ml # Bowel Movements 1 Result Diagram: 06/05/1780806/05/17808 Objective Remarks GENERAL: This averagely built elderly lady who is sitting upright, pale and no distress HEENT: Head normocephalic. Pupils are reactive. Tongue is moist. Throat was clear. NECK: Supple. No venous distension. No thyromegaly or lymphadenopathy. CHEST: Distant breath sounds with wheezes in the upper lung [place]. There are crackles heard at both lung bases. HEART: The heart sounds are irregular, S1-S2. No murmur. No S3. ABDOMEN: Abdomen is soft, protuberant without masses. No organomegaly or tenderness. Bowel sounds are active. EXTREMITIES: No edema. Mild varicosities. Reflexes are 1 +with no gross motor deficits. NEURO:No deficit SKIN: Skin was warm and dry. Assessment and Plan Assessment and Plan IMPRESSION 1. Acute respiratory failure, resolving. 2. Bilateral pulmonary infiltrates with pulmonary edema versus atypical pneumonia. 3. Status post coronary artery stenting with acute coronary syndrome. 4. History of diabetes mellitus type 2. 5. Hypertension and hyperlipidemia. 6. High degree AV block, resolved. Plan : 1. Wean o2 to keep sat >92. 2. Continue diuretics daily. 3. IS at bedside q3h. 4. Nebs qid , duoneb. 5. Add Antibiotics Zosyn, Vanco and reculture. 6. Prednisone 10 mg bid 7. D/C Bipap at HS 8. CXR ,CBC in Missy Armstrong MD Jun 05, 2017 18:38
[2017-06-05] MEDS: ATORVASTATIN 10 MG TAB PO SCH (21:08)
[2017-06-05] MEDS: DOCUSATE SODIUM 50 MG/SENNA 8.6 MG TAB PO SCH (21:09)
[2017-06-06] VITALS (10 sets, daily range): BP systolic 147–177; BP diastolic 61–76; PULSE 51–60; RESP 16–20; TEMP 97.6–98.5; O2SAT 3–97
[2017-06-06] MEDS: cloNIDine HCL 0.3 MG TAB PO SCH ×3 (01:00→17:46)
[2017-06-06] MEDS: ARTIFICIAL TEARS OPTH SOLN 15 ML BTL EACH EYE SCH ×3 (06:00→22:27)
[2017-06-06] MEDS: PIPERACIL-TAZO 2.25 GM PREMIX 50 ML IV SCH ×3 (06:30→22:07)
[2017-06-06] MEDS: INSULIN ASPART SUPPLEMENTAL SCALE SQ SCH ×4 (06:39→21:40)
--- NOTE | 2017-06-06 06:53 | RADRPT ---
EXAM DATE/TIME: 06/06/2017 06:00 [place] COMPARISON: CHEST SINGLE AP, June 04, 2017, 3:01. INDICATIONS : Respiratory failure. Cough. MEDICAL HISTORY : Hypertension. Cardiovascular disease. SURGICAL HISTORY : Hysterectomy. Cholecystectomy. ENCOUNTER: Subsequent ACUITY: 4 - 6 days PAIN SCORE: 0/10 LOCATION: Bilateral chest FINDINGS: A single view of the chest demonstrates patchy bilateral airspace disease. No significant effusion. N o pneumothorax. Heart size within normal limits. CONCLUSION: 1. Patchy bilateral air space disease. Findings slightly improved on the right and slightly worse on the left since June 04. Hector Montelongo MD on June 06, 2017 at 6:51 Board Certified Radiologist. This report was verified electronically.
[2017-06-06] MEDS: CHLORHEXIDINE 0.12% (ORAL KIT) 15 ML CUP MT SCH ×2 (08:00→20:00)
[2017-06-06 08:36] LABS: AUTOMATED NEUTROPHIL # 9.5 TH/MM3 (1.8-7.7); BASOPHIL % 0.1 % (0.0-2.0); EOSINOPHIL # 0.1 TH/MM3 (0-0.4); EOSINOPHIL % 1.2 % (0.0-4.0); HEMATOCRIT 28.6 % (35.0-46.0); HEMO FLAGS DIFF FINAL; LYMPH % 14.8 % (9.0-44.0); LYMPHOCYTE # 1.8 TH/MM3 (1.0-4.8); MEAN CELL VOLUME 85.6 FL (80.0-100.0); MEAN CORPUSCULAR HEMOGLOBIN 28.4 PG (27.0-34.0); MEAN CORPUSCULAR HGB CONC 33.2 % (32.0-36.0); MONO % 6.3 % (0.0-8.0); NEUT % 77.6 % (16.0-70.0); PLATELET COUNT 331 TH/MM3 (150-450); RED BLOOD COUNT 3.34 MIL/MM3 (4.00-5.30); WHITE BLOOD COUNT 12.2 TH/MM3 (4.0-11.0)
[2017-06-06] MEDS: SODIUM CHLORIDE 0.9% FLUSH 10 ML FLUSH IV FLUSH SCH ×2 (09:00→21:33)
[2017-06-06] MEDS: NYSTATIN SUSP 500,000 U/5 ML CUP SWISH-SWAL SCH ×4 (09:03→21:33)
[2017-06-06] MEDS: DOCUSATE SODIUM 50 MG/SENNA 8.6 MG TAB PO SCH ×2 (09:03→21:32)
[2017-06-06] MEDS: FAMOTIDINE 20 MG TAB PO SCH ×2 (09:03→21:32)
[2017-06-06] MEDS: HEPARIN SODIUM - SQ 10,000 UNITS/ML VIAL SQ SCH ×2 (09:03→21:32)
[2017-06-06 09:04] LABS: ALKALINE PHOSPHATASE 61 U/L (45-117); ALT (GPT) 35 U/L (10-53); ANION GAP 8 MEQ/L (5-15); AST (GOT) 24 U/L (15-37); BLOOD UREA NITROGEN 32 MG/DL (7-18); CHLORIDE 104 MEQ/L (98-107); GLOMERULAR FILTRATION RATE 47 ML/MIN (>89); MAGNESIUM 2.2 MG/DL (1.5-2.5); POTASSIUM 3.7 MEQ/L (3.5-5.1); SODIUM (NA) 137 MEQ/L (136-145); TOTAL BILIRUBIN ADULT 0.6 MG/DL (0.2-1.0)
[2017-06-06] MEDS: predniSONE 20 MG TAB PO SCH (09:04)
[2017-06-06] MEDS: amLODIPine BESYLATE 5 MG TAB PO SCH (09:04)
[2017-06-06] MEDS: ASPIRIN EC 81 MG TABEC PO SCH (09:04)
[2017-06-06] MEDS: LOSARTAN 50 MG TAB PO SCH (09:04)
[2017-06-06] MEDS: INSULIN DETEMIR 100 UNITS/ML VIAL SQ SCH ×2 (09:09→21:41)
[2017-06-06] MEDS: INSULIN ASPART 1,000 UNITS/10 ML VIAL SQ SCH ×3 (09:30→17:49)
[2017-06-06] MEDS ORDERED: VANCOMYCIN INJ 1,500 MG in SODIUM CHLORID 0.9% 500 ML INJ 500 ML IV SCH (11:00)
[2017-06-06] MEDS: TICAGRELOR 90 MG TAB PO SCH ×2 (12:41→21:32)
[2017-06-06] MEDS: busPIRone HCL 10 MG TAB PO SCH ×2 (12:41→21:32)
--- NOTE | 2017-06-06 17:51 | PD.CARD.PN ---
Subjective Subjective Remarks No CP, SOB or cough Objective Medications Current Medications Medications (Trade) Dose Ordered Sig/Renaldo Route Start Time Stop Time Status Last Admin (NS Flush) 2 ml UNSCH PRN IV FLUSH 05/17/17 00:30 (NS Flush) 2 ml BID IV FLUSH 05/17/17 09:00 06/06/17 09:00 (Narcan Inj) 0.4 mg UNSCH PRN IV 05/17/17 00:30 Miscellaneous Information Patient in critical care unit? Ass... [id number] .XX 05/17/17 02:45 (Buspar) 30 mg BID PO 05/17/17 09:00 06/06/17 12:41 (Cardizem Cd) 240 mg DAILY PO 05/17/17 09:00 Future Hold 05/17/17 07:48 (Glucophage) 750 mg BIDPC PO 05/17/17 09:00 Future Hold 05/17/17 16:32 (Cozaar) 100 mg DAILY PO 05/17/17 09:00 Future hold 06/06/17 09:04 (Hydrodiuril) 12.5 mg DAILY PO 05/17/17 09:00 Future Hold 05/17/17 07:48 (Pill Splitter) 1 ea UNSCH PRN OTHER 05/17/17 05:30 (Nitrostat Sl) 0.4 mg Q5M PRN SL 05/17/17 09:15 05/17/17 09:28 (Tessalon) 100 mg TID PRN PO 05/17/17 09:15 05/31/17 17:15 (Lipitor) 80 mg HS PO 05/17/17 21:00 06/05/17 21:08 (Peridex 0.12% Liq) 15 ml BID@08,20 MT 05/18/17 20:00 06/03/17 20:33 (Prinivil) 10 mg Q24H PO 05/18/17 19:15 Future Hold 05/24/17 21:27 (Tylenol) 650 mg Q6H PRN PO 05/20/17 22:00 06/04/17 03:42 (D50w (Vial) Inj) 50 ml UNSCH PRN IV 05/22/17 13:15 (Glucagon Inj) 1 mg UNSCH PRN OTHER 05/22/17 13:15 (Mycostatin Liq) 5 ml QID SWISH-SWAL 05/22/17 21:00 06/06/17 12:42 (Tears Naturale Opth Soln) 1 drop Q8HR EACH EYE 05/24/17 14:00 06/06/17 14:00 (Albuterol Neb) 2.5 mg Q2HR NEB PRN NEB 05/24/17 09:30 06/02/17 14:56 (Apresoline Inj) 10 mg Q1HR PRN IV PUSH 05/24/17 11:30 06/03/17 21:35 (Nitroglycerin 2% Oint) 2 inch Q6HR PRN TOPICAL 05/24/17 11:30 05/25/17 09:01 (Heparin Inj) 5,000 units Q12HR SQ 05/24/17 21:00 06/06/17 09:03 (Brilinta) 90 mg BID PO 05/24/17 21:00 06/06/17 12:41 (Ecotrin Ec) 81 mg DAILY PO 05/25/17 09:00 06/06/17 09:04 (Racepinephrine 2.25% Neb) 0.5 ml Q2HR NEB PRN NEB 05/26/17 15:30 05/30/17 19:53 (Robitussin Liq) 200 mg Q6H PRN PO 05/27/17 00:45 05/31/17 22:15 (Dulcolax Supp) 10 mg DAILY PRN RECTAL 05/27/17 07:00 06/03/17 20:56 (Catapres) 0.3 mg Q8H PO 05/28/17 17:00 06/06/17 09:04 (Pepcid) 10 mg BID PO 05/29/17 09:00 06/06/17 09:03 (Apresoline Inj) 10 mg Q30M PRN IV PUSH 06/03/17 19:30 06/03/17 22:10 (Levemir Inj) 10 units Q12HR SQ 06/03/17 21:00 06/06/17 09:09 (NovoLOG INJ) 7 units TIDPC SQ 06/04/17 09:30 06/06/17 12:55 (NovoLOG SUPPLEMENTAL SCALE) 1 ACHS SLIDING SCALE SQ 06/03/17 21:00 06/06/17 12:54 Piperacillin Sod/ Tazobactam Sod 50 ml @ 100 mls/hr Q8H IV 06/04/17 14:00 06/06/17 15:00 Pharmacy Profile Note 0 ml @ 0 mls/hr UNSCH OTHER 06/04/17 11:30 (Deltasone) 20 mg DAILY PO 06/06/17 09:00 06/06/17 09:04 (Norvasc) 5 mg DAILY PO 06/05/17 11:15 06/06/17 09:04 (Ashley-Colace) 2 tab BID PO 06/05/17 21:00 06/06/17 09:03 Vancomycin HCl 1500 mg/Sodium Chloride 515 ml @ 250 mls/hr Q24H IV 06/06/17 11:00 06/06/17 12:42 Miscellaneous Information SPECIFIC LAB TO BE DRAWN:VANCOMYCIN TROUGH DATE TO... ONCE ONCE .XX 06/09/17 10:45 06/09/17 10:46 Vital Signs / I&O Vital Signs Date Time Temp Pulse Resp B/P (MAP) Pulse Ox O2 Delivery O2 Flow Rate FiO2 06/06/17 16:04 97.9 54 20 153/70 (97) 97 06/06/17 14:35 3 Nasal Cannula 98 06/06/17 12:04 97.6 51 18 147/61 (89) 94 06/06/17 09:00 Nasal Cannula 3.00 06/06/17 08:04 98.5 57 18 177/76 (109) 94 06/06/17 04:00 Nasal Cannula 3.00 06/06/17 04:00 98.2 55 20 177/70 (105) 95 06/06/17 00:31 97 Nasal Cannula 3.00 06/06/17 00:00 98.0 60 18 154/76 (102) 06/06/17 00:00 Nasal Cannula 3.00 06/05/17 20:18 51 06/05/17 20:00 Nasal Cannula 3.00 06/05/17 20:00 98.1 56 18 160/70 (100) 95 I/O 06/05/17 06/05/17 06/05/17 06/06/17 06/06/17 06/06/17 07:00 15:00 23:00 07:00 15:00 23:00 Intake Total 863 ml 50 ml 480 ml 580 ml Output Total 1350 ml 900 ml 1700 ml Balance -487 ml 50 ml -420 ml -1120 ml Intake Oral 480 ml 480 ml 480 ml IV Total 383 ml 50 ml 100 ml Output Urine Total 1350 ml 900 ml 1700 ml Stool Total 0 ml # Bowel Movements 1 Physical Exam GENERAL: In NAD SKIN: Warm and dry. HEAD: Normocephalic. EYES: No scleral icterus. No injection or drainage. NECK: Supple, trachea midline. No JVD or lymphadenopathy. CARDIOVASCULAR: Regular rate and rhythm without murmurs, gallops, or rubs. RESPIRATORY: Breath sounds equal bilaterally. No accessory muscle use. GASTROINTESTINAL: Abdomen soft, non-tender, nondistended. MUSCULOSKELETAL: No cyanosis, or edema. Groin stable Laboratory Laboratory Tests Test 06/06/17 07:35 White Blood Count 12.2 TH/MM3 Red Blood Count 3.34 MIL/MM3 Hemoglobin 9.5 GM/DL Hematocrit 28.6 % Mean Corpuscular Volume 85.6 FL Mean Corpuscular Hemoglobin 28.4 PG Mean Corpuscular Hemoglobin Concent 33.2 % Red Cell Distribution Width 16.0 % Platelet Count 331 TH/MM3 Mean Platelet Volume 7.6 FL Neutrophils (%) (Auto) 77.6 % Lymphocytes (%) (Auto) 14.8 % Monocytes (%) (Auto) 6.3 % Eosinophils (%) (Auto) 1.2 % Basophils (%) (Auto) 0.1 % Neutrophils # (Auto) 9.5 TH/MM3 Lymphocytes # (Auto) 1.8 TH/MM3 Monocytes # (Auto) 0.8 TH/MM3 Eosinophils # (Auto) 0.1 TH/MM3 Basophils # (Auto) 0.0 TH/MM3 CBC Comment DIFF FINAL Differential Comment Blood Urea Nitrogen 32 MG/DL Creatinine 1.12 MG/DL Random Glucose 89 MG/DL Total Protein 6.4 GM/DL Albumin 2.5 GM/DL Calcium Level 8.9 MG/DL Phosphorus Level 2.3 MG/DL Magnesium Level 2.2 MG/DL Alkaline Phosphatase 61 U/L Aspartate Amino Transf (AST/SGOT) 24 U/L Alanine Aminotransferase (ALT/SGPT) 35 U/L Total Bilirubin 0.6 MG/DL Sodium Level 137 MEQ/L Potassium Level 3.7 MEQ/L Chloride Level 104 MEQ/L Carbon Dioxide Level 25.0 MEQ/L Anion Gap 8 MEQ/L Estimat Glomerular Filtration Rate 47 ML/MIN Random Vancomycin Level 3.0 COMMENT Imaging Last Impressions Chest X-Ray 06/06/17 0600 Signed Impressions: Service Date/Time: Tuesday, June 06, 2017 06:00 - CONCLUSION: 1. Patchy bilateral air space disease. Findings slightly improved on the right and slightly worse on the left since June 04. Hector Montelongo MD Chest CT 05/26/17 0000 Signed Impressions: Service Date/Time: Friday, May 26, 2017 09:31 - CONCLUSION: 1. Multiple patchy areas of consolidation of both lungs which could indicate pulmonary edema. 2. Small bilateral pleural effusions right greater than left. 3. Mediastinal adenopathy and questionable mild hilar adenopathy. 4. Mild cardiomegaly. Bandar Pruitt MD Assessment and Plan Problem List: (1) Acute CHF (congestive heart failure) ICD Codes: I50.9 - Heart failure, unspecified Status: Acute (2) NSTEMI (non-ST elevated myocardial infarction) ICD Codes: I21.4 - Non-ST elevation (NSTEMI) myocardial infarction Status: Resolved (3) CAD (coronary artery disease) ICD Codes: I25.10 - Atherosclerotic heart disease of [place] coronary artery without angina pectoris Status: Chronic (4) High degree atrioventricular block ICD Codes: I44.39 - Other atrioventricular block Status: Resolved (5) Respiratory failure ICD Codes: J96.90 - Respiratory failure, unspecified, unspecified whether with hypoxia or hypercapnia Status: Acute (6) PNA (pneumonia) ICD Codes: J18.9 - Pneumonia, unspecified organism Status: Acute (7) Ischemic cardiomyopathy ICD Codes: I25.5 - Ischemic cardiomyopathy Status: Acute Assessment and Plan Remains stable from cardiac standpoint. Continue Brilinta and baby ASA to prevent stent thrombosis. Continue carvedilol and lisinopril for BP control. Increase activity, PT. Calorie intake still low. D/w pt and daughter. F/u w Dr. Roa after discharge. Problem Qualifiers (1) PNA (pneumonia): Mg Daly MD Jun 06, 2017 17:51
--- NOTE | 2017-06-06 18:02 | HHI.PR ---
Subjective Remarks No overnight events . Blood glucose in the 230, madera catheter still in place. No chest pain. Objective Vitals Vital Signs Date Time Temp Pulse Resp B/P (MAP) Pulse Ox O2 Delivery O2 Flow Rate FiO2 06/06/17 16:04 97.9 54 20 153/70 (97) 97 06/06/17 14:35 3 Nasal Cannula 98 06/06/17 12:04 97.6 51 18 147/61 (89) 94 06/06/17 09:00 Nasal Cannula 3.00 06/06/17 08:04 98.5 57 18 177/76 (109) 94 06/06/17 04:00 Nasal Cannula 3.00 06/06/17 04:00 98.2 55 20 177/70 (105) 95 06/06/17 00:31 97 Nasal Cannula 3.00 06/06/17 00:00 98.0 60 18 154/76 (102) 06/06/17 00:00 Nasal Cannula 3.00 06/05/17 20:18 51 06/05/17 20:00 Nasal Cannula 3.00 06/05/17 20:00 98.1 56 18 160/70 (100) 95 I/O 06/05/17 06/05/17 06/05/17 06/06/17 06/06/17 06/06/17 06:59 14:59 22:59 06:59 14:59 22:59 Intake Total 863 ml 50 ml 480 ml 530 ml 50 ml Output Total 1350 ml 900 ml 1700 ml Balance -487 ml 50 ml -420 ml -1170 ml 50 ml Intake Oral 480 ml 480 ml 480 ml IV Total 383 ml 50 ml 50 ml 50 ml Output Urine Total 1350 ml 900 ml 1700 ml Stool Total 0 ml # Bowel Movements 1 Result Diagram: 06/06/17 0735 06/06/17 0735 Objective Remarks Not in distress, well-nourished, looks stated age PERRL, pink conjunctiva without injection, anicteric Supple neck, no masses or thyromegaly, trachea midline Normal rate and regular rhythm, no murmurs gallops or rubs appreciated. Decreased breath sounds, occasional crackles Normal bowel sounds, soft, non-tender, nondistended, no guarding. Trace edema AAO x3 A/P Problem List: (1) Acute hypoxemic respiratory failure ICD Code: J96.01 - Acute respiratory failure with hypoxia Status: Acute (2) Respiratory distress ICD Code: R06.00 - Dyspnea, unspecified Status: Acute (3) Ischemic cardiomyopathy ICD Code: I25.5 - Ischemic cardiomyopathy Status: Acute (4) Acute diastolic heart failure ICD Code: I50.31 - Acute diastolic (congestive) heart failure Status: Acute (5) EZ (acute kidney injury) ICD Code: N17.9 - Acute kidney failure, unspecified Status: Acute (6) CKD (chronic kidney disease), stage III ICD Code: N18.3 - Chronic kidney disease, stage 3 (moderate) Status: Chronic (7) Pulmonary edema ICD Code: J81.1 - Chronic pulmonary edema Status: Acute (8) High degree atrioventricular block ICD Code: I44.39 - Other atrioventricular block Status: Resolved (9) CAD (coronary artery disease) ICD Code: I25.10 - Atherosclerotic heart disease of [place] coronary artery without angina pectoris Status: Chronic (10) NSTEMI (non-ST elevated myocardial infarction) ICD Code: I21.4 - Non-ST elevation (NSTEMI) myocardial infarction Status: Resolved (11) Encephalopathy acute ICD Code: G93.40 - Encephalopathy, unspecified Status: Resolved (12) Constipation ICD Code: K59.00 - Constipation, unspecified Status: Acute (13) Critical illness myopathy ICD Code: G72.81 - Critical illness myopathy Status: Acute Assessment and Plan NEURO/Psych: Depression disorder Anxiety disorder Chronic benzodiazepine use Encephalopathy - resolved Initially Patient on sedatives - Ativan which was discontinued since patient lethargic. Acetaminophen 650 mg by mouth every 6 hours when necessary fever/pain Respiratory: Acute hypercapnic hypoxic Respiratory failure HCAP Pulmonary edema (Cardiogenic vs ARDS) Extubated 05/26. On NC. Cannot tolerate BiPAP Albuterol/Atrovent aerosols every 6 hours with albuterol aerosols every 2 hours PRN, EzPAP, Acapella, IS s/p dexamethasone 4 mg IV every 6 hours times x [address] chest 05/26: Bilateral extensive infiltrates pulmonary edema Cardiogenic vs ARDS, doubt infection Observe off ABX CXR 05/30 stable to slightly improved -Taper steroids, continue vancomycin and Zosyn, sputum culture pending. CV: NSTEMI Pulmonary edema High degree AV block-now resolved Dyslipidemia Hypertension Hypotension [place] 05/17 Status post angioplasty and stents of the distal LAD and mid LAD, and angioplasty and stenting of the proximal/ostial RCA Echocardiogram revealed EF 60-65%. Asymmetric septal hypertrophy. Trace MR. Carvedilol to 12.5 mg by mouth twice a day for hypertension 05/26. Holding lisinopril 10 mg daily due to EZ Clonidine 0.3 mg q8 and hydralazine 50 mg ill grams 3 times a day Temporary Pacemaker is been removed 05/18 Aspirin 81 mg by mouth daily, Ticagrelor 90 mg by mouth twice a day for stent Atorvastatin 80 mg by mouth daily for dyslipidemia. ID: Possible HCAP/aspiration PNA Oral thrush Bilateral infiltrate on chest x-ray most likely from pulmonary edema (ARDS vs cardiogenic)-these infiltrates present on CXR immediately after intubation, so VAP is unlikely. ALL cultures negative, doubt infectious etiology Monitor off all antibiotics. ID Dr. Godinez On nystatin swish and spit every 6 hours, Diflucan added 05/30 05/20 fiberoptic bronchoscopy with BAL no growth Legionella, pneumococcal, influenza A and B antigens- results negative Repeat urine and blood cultures no growth Continue IV Vancomycin and IV Zosyn to treat suspected HCAP vs VAP vs aspiration PNA since patient was encephalopathic. Endo Diabetes mellitus -Increase Levemir, stop prandial insulin, continue sliding scale Renal Chronic kidney disease stage 3 -Improving, monitor, recheck BMP tomorrow GI MSK Weakness/Critical illness myopathy - Consult Pt, OOB to chair. GI prophylaxis Pepcid DVT- Teds, SCDs, heparin subcutaneous Discharge Planning Consult physical therapy Deborah Dang MD Jun 06, 2017 18:02
--- NOTE | 2017-06-06 19:00 | HHI.PR ---
Subjective Remarks Much better today. Has some cough. No fever. On O2 4L.. CXR now shows improved bilateral infiltrates. On IV Vanco/ Zosyn. Objective Vital Signs Date Time Temp Pulse Resp B/P (MAP) Pulse Ox O2 Delivery O2 Flow Rate FiO2 06/06/17 16:04 97.9 54 20 153/70 (97) 97 06/06/17 14:35 3 Nasal Cannula 98 06/06/17 12:04 97.6 51 18 147/61 (89) 94 06/06/17 09:00 Nasal Cannula 3.00 06/06/17 08:04 98.5 57 18 177/76 (109) 94 06/06/17 04:00 Nasal Cannula 3.00 06/06/17 04:00 98.2 55 20 177/70 (105) 95 06/06/17 00:31 97 Nasal Cannula 3.00 06/06/17 00:00 98.0 60 18 154/76 (102) 06/06/17 00:00 Nasal Cannula 3.00 06/05/17 20:18 51 06/05/17 20:00 Nasal Cannula 3.00 06/05/17 20:00 98.1 56 18 160/70 (100) 95 I/O 06/05/17 06/05/17 06/05/17 06/06/17 06/06/17 06/06/17 07:00 15:00 23:00 07:00 15:00 23:00 Intake Total 863 ml 50 ml 480 ml 580 ml 720 ml Output Total 1350 ml 900 ml 1700 ml 1000 ml Balance -487 ml 50 ml -420 ml -1120 ml -280 ml Intake Oral 480 ml 480 ml 480 ml 720 ml IV Total 383 ml 50 ml 100 ml Output Urine Total 1350 ml 900 ml 1700 ml 1000 ml Stool Total 0 ml # Bowel Movements 1 0 Result Diagram: 06/06/1773406/06/1735 Objective Remarks GENERAL: This averagely built elderly lady who is sitting upright, pale and no distress HEENT: Head normocephalic. Pupils are reactive. Tongue is moist. Throat was clear. NECK: Supple. No venous distension. No thyromegaly or lymphadenopathy. CHEST: Distant breath sounds with wheezes in the upper lung [place]. There are Occ crackles heard at both lung bases. HEART: The heart sounds are irregular, S1-S2. No murmur. No S3. ABDOMEN: Abdomen is soft, protuberant without masses. No organomegaly or tenderness. Bowel sounds are active. EXTREMITIES: No edema. Mild varicosities. Reflexes are 1 +with no gross motor deficits. NEURO:No deficit SKIN: Skin was warm and dry. Assessment and Plan Assessment and Plan IMPRESSION 1. Acute respiratory failure, resolving. 2. Bilateral pulmonary infiltrates with pulmonary edema versus atypical pneumonia. 3. Status post coronary artery stenting with acute coronary syndrome. 4. History of diabetes mellitus type 2. 5. Hypertension and hyperlipidemia. 6. High degree AV block, resolved. Plan : 1. Wean o2 to keep sat >92. 2. Continue diuretics daily. 3. IS at bedside q3h. 4. Nebs qid , duoneb. 5. Cont Antibiotics Zosyn, Vanco and reculture. 6. Cont Prednisone 10 mg bid 7. D/C Bipap at HS. Not tolerating 8. BMP ,CBC in am Missy Armstrong MD Jun 06, 2017 19:00
[2017-06-06] MEDS: ATORVASTATIN 10 MG TAB PO SCH (21:31)
[2017-06-07] VITALS (8 sets, daily range): BP systolic 102–180; BP diastolic 49–77; PULSE 52–63; RESP 16–20; TEMP 97.4–98.4; O2SAT 90–97
[2017-06-07] MEDS: cloNIDine HCL 0.3 MG TAB PO SCH ×3 (00:33→16:29)
[2017-06-07] MEDS: ARTIFICIAL TEARS OPTH SOLN 15 ML BTL EACH EYE SCH ×3 (05:08→23:40)
[2017-06-07] MEDS: PIPERACIL-TAZO 2.25 GM PREMIX 50 ML IV SCH (05:08)
[2017-06-07] MEDS: INSULIN ASPART SUPPLEMENTAL SCALE SQ SCH ×4 (05:22→23:42)
[2017-06-07] MEDS: CHLORHEXIDINE 0.12% (ORAL KIT) 15 ML CUP MT SCH ×2 (08:00→20:00)
[2017-06-07] MEDS: FAMOTIDINE 20 MG TAB PO SCH ×2 (09:12→20:23)
[2017-06-07] MEDS: ASPIRIN EC 81 MG TABEC PO SCH (09:12)
[2017-06-07] MEDS: DOCUSATE SODIUM 50 MG/SENNA 8.6 MG TAB PO SCH ×2 (09:12→20:23)
[2017-06-07] MEDS: predniSONE 20 MG TAB PO SCH (09:12)
[2017-06-07] MEDS: amLODIPine BESYLATE 5 MG TAB PO SCH (09:12)
[2017-06-07] MEDS: INSULIN DETEMIR 100 UNITS/ML VIAL SQ SCH ×2 (09:12→20:19)
[2017-06-07] MEDS: NYSTATIN SUSP 500,000 U/5 ML CUP SWISH-SWAL SCH ×4 (09:13→20:20)
[2017-06-07] MEDS: busPIRone HCL 10 MG TAB PO SCH ×2 (09:13→20:22)
[2017-06-07] MEDS: TICAGRELOR 90 MG TAB PO SCH ×2 (09:13→20:20)
[2017-06-07] MEDS: HEPARIN SODIUM - SQ 10,000 UNITS/ML VIAL SQ SCH ×2 (09:14→20:21)
[2017-06-07] MEDS: LOSARTAN 50 MG TAB PO SCH (09:16)
--- NOTE | 2017-06-07 10:35 | PD.CARD.PN ---
Subjective Subjective Remarks No CP or SOB, cough improved Objective Medications Current Medications Medications (Trade) Dose Ordered Sig/Renaldo Route Start Time Stop Time Status Last Admin (NS Flush) 2 ml UNSCH PRN IV FLUSH 05/17/17 00:30 (NS Flush) 2 ml BID IV FLUSH 05/17/17 09:00 06/06/17 21:33 (Narcan Inj) 0.4 mg UNSCH PRN IV 05/17/17 00:30 Miscellaneous Information Patient in critical care unit? Ass... [id number] .XX 05/17/17 02:45 (Buspar) 30 mg BID PO 05/17/17 09:00 06/07/17 09:13 (Cardizem Cd) 240 mg DAILY PO 05/17/17 09:00 Future Hold 05/17/17 07:48 (Glucophage) 750 mg BIDPC PO 05/17/17 09:00 Future Hold 05/17/17 16:32 (Cozaar) 100 mg DAILY PO 05/17/17 09:00 Future hold 06/07/17 09:16 (Hydrodiuril) 12.5 mg DAILY PO 05/17/17 09:00 Future Hold 05/17/17 07:48 (Pill Splitter) 1 ea UNSCH PRN OTHER 05/17/17 05:30 (Nitrostat Sl) 0.4 mg Q5M PRN SL 05/17/17 09:15 05/17/17 09:28 (Tessalon) 100 mg TID PRN PO 05/17/17 09:15 05/31/17 17:15 (Lipitor) 80 mg HS PO 05/17/17 21:00 06/06/17 21:31 (Peridex 0.12% Liq) 15 ml BID@08,20 MT 05/18/17 20:00 06/06/17 20:00 (Prinivil) 10 mg Q24H PO 05/18/17 19:15 Future Hold 05/24/17 21:27 (Tylenol) 650 mg Q6H PRN PO 05/20/17 22:00 06/04/17 03:42 (D50w (Vial) Inj) 50 ml UNSCH PRN IV 05/22/17 13:15 (Glucagon Inj) 1 mg UNSCH PRN OTHER 05/22/17 13:15 (Mycostatin Liq) 5 ml QID SWISH-SWAL 05/22/17 21:00 06/07/17 09:13 (Tears Naturale Opth Soln) 1 drop Q8HR EACH EYE 05/24/17 14:00 06/07/17 05:08 (Albuterol Neb) 2.5 mg Q2HR NEB PRN NEB 05/24/17 09:30 06/02/17 14:56 (Apresoline Inj) 10 mg Q1HR PRN IV PUSH 05/24/17 11:30 06/03/17 21:35 (Nitroglycerin 2% Oint) 2 inch Q6HR PRN TOPICAL 05/24/17 11:30 05/25/17 09:01 (Heparin Inj) 5,000 units Q12HR SQ 05/24/17 21:00 06/07/17 09:14 (Brilinta) 90 mg BID PO 05/24/17 21:00 06/07/17 09:13 (Ecotrin Ec) 81 mg DAILY PO 05/25/17 09:00 06/07/17 09:12 (Racepinephrine 2.25% Neb) 0.5 ml Q2HR NEB PRN NEB 05/26/17 15:30 05/30/17 19:53 (Robitussin Liq) 200 mg Q6H PRN PO 05/27/17 00:45 05/31/17 22:15 (Dulcolax Supp) 10 mg DAILY PRN RECTAL 05/27/17 07:00 06/03/17 20:56 (Catapres) 0.3 mg Q8H PO 05/28/17 17:00 06/07/17 09:12 (Pepcid) 10 mg BID PO 05/29/17 09:00 06/07/17 09:12 (Apresoline Inj) 10 mg Q30M PRN IV PUSH 06/03/17 19:30 06/03/17 22:10 (NovoLOG SUPPLEMENTAL SCALE) 1 ACHS SLIDING SCALE SQ 06/03/17 21:00 06/06/17 21:40 Piperacillin Sod/ Tazobactam Sod 50 ml @ 100 mls/hr Q8H IV 06/04/17 14:00 06/07/17 05:08 Pharmacy Profile Note 0 ml @ 0 mls/hr UNSCH OTHER 06/04/17 11:30 (Deltasone) 20 mg DAILY PO 06/06/17 09:00 06/07/17 09:12 (Norvasc) 5 mg DAILY PO 06/05/17 11:15 06/07/17 09:12 (Ashley-Colace) 2 tab BID PO 06/05/17 21:00 06/07/17 09:12 Vancomycin HCl 1500 mg/Sodium Chloride 515 ml @ 250 mls/hr Q24H IV 06/06/17 11:00 06/06/17 12:42 Miscellaneous Information SPECIFIC LAB TO BE DRAWN:VANCOMYCIN TROUGH DATE TO... ONCE ONCE .XX 06/09/17 10:45 06/09/17 10:46 (Levemir Inj) 18 units Q12HR SQ 06/06/17 21:00 06/07/17 09:12 Vital Signs / I&O Vital Signs Date Time Temp Pulse Resp B/P (MAP) Pulse Ox O2 Delivery O2 Flow Rate FiO2 06/07/17 08:04 98.4 63 18 130/64 (86) 90 06/07/17 04:32 98.0 55 18 144/72 (96) 97 06/07/17 01:02 98.1 52 16 148/69 (95) 97 06/07/17 00:59 Nasal Cannula 3.00 06/06/17 20:38 97.6 53 16 173/70 (104) 96 06/06/17 20:36 Nasal Cannula 3.00 06/06/17 20:00 56 06/06/17 16:04 97.9 54 20 153/70 (97) 97 06/06/17 14:35 3 Nasal Cannula 98 06/06/17 12:04 97.6 51 18 147/61 (89) 94 I/O 06/06/17 06/06/17 06/06/17 06/07/17 06/07/17 06/07/17 07:00 15:00 23:00 07:00 15:00 23:00 Intake Total 580 ml 250 ml 770 ml 580 ml Output Total 1700 ml 1000 ml 900 ml Balance -1120 ml 250 ml -230 ml -320 ml Intake Oral 480 ml 720 ml 480 ml IV Total 100 ml 250 ml 50 ml 100 ml Output Urine Total 1700 ml 1000 ml 900 ml # Bowel Movements 0 Physical Exam GENERAL: In NAD SKIN: Warm and dry. HEAD: Normocephalic. EYES: No scleral icterus. No injection or drainage. NECK: Supple, trachea midline. No JVD or lymphadenopathy. CARDIOVASCULAR: Regular rate and rhythm without murmurs, gallops, or rubs. RESPIRATORY: Breath sounds equal bilaterally. No accessory muscle use. GASTROINTESTINAL: Abdomen soft, non-tender, nondistended. MUSCULOSKELETAL: No cyanosis, or edema. Groin stable Laboratory Laboratory Tests Test 05/16/17 22:40 05/17/17 02:25 05/17/17 11:56 05/18/17 04:02 Prothrombin Time 11.4 SEC Prothromb Time International Ratio 1.0 RATIO Nasal Screen MRSA (PCR) MRSA NOT DETECTED Troponin I 0.60 NG/ML Creatine Kinase MB 4.7 NG/ML Triglycerides Level 134 MG/DL Cholesterol Level 82 MG/DL LDL Cholesterol 27 MG/DL HDL Cholesterol 28.5 MG/DL Cholesterol/HDL Ratio 2.87 RATIO Test 05/19/17 04:08 05/21/17 16:20 05/25/17 05:59 05/26/17 04:26 Activated Partial Thromboplast Time 33.9 SEC Urine RBC 26 /hpf Urine Amorphous Sediment RARE Urine Bacteria RARE /hpf Helmet Cells OCC Keratocytes Total Creatine Kinase 56 U/L Metamyelocytes 1 % Myelocytes 1 % Spherocytes 1+ Test 05/26/17 14:10 05/27/17 03:50 06/01/17 13:38 06/01/17 15:30 Blood Gas Ventilator Setting CPAP 5/PS 5 Differential Total Cells Counted 100 Neutrophils % (Manual) 76 % Band Neutrophils % 5 % Lymphocytes % 12 % Monocytes % 5 % Eosinophils % 2 % Neutrophils # (Manual) 7.8 TH/MM3 Platelet Estimate NORMAL Platelet Morphology Comment NORMAL Ovalocytes 1+ B-Type Natriuretic Peptide 73 PG/ML Urine Color YELLOW Urine Turbidity HAZY Urine pH 5.5 Urine Specific [place] 1.013 Urine Protein 30 mg/dL Urine Glucose (UA) NEG mg/dL Urine Ketones NEG mg/dL Urine Occult Blood NEG Urine Nitrite NEG Urine Bilirubin NEG Urine Urobilinogen LESS THAN 2.0 MG/DL Urine Leukocyte Esterase NEG Urine WBC 2 /hpf Urine Squamous Epithelial Cells 1 /hpf Urine Hyaline Casts 2 /lpf Urine Granular Casts 11 /lpf Urine Mucus FEW /lpf Microscopic Urinalysis Comment CATH-CULT NOT IND Test 06/01/17 17:25 06/06/17 07:35 Blood Gas Puncture Site RT RADIAL Blood Gas Patient Temperature 98.6 Blood Gas HCO3 27 mmol/L Blood Gas Base Excess 3.4 mmol/L Blood Gas Oxygen Saturation 90 % Arterial Blood pH 7.48 Arterial Blood Partial Pressure CO2 37 mmHg Arterial Blood Partial Pressure O2 67 mmHg Arterial Blood Oxygen Content 11.0 Vol % Arterial Blood Carboxyhemoglobin 2.1 % Arterial Blood Methemoglobin 1.0 % Blood Gas Hemoglobin 8.6 G/DL Oxygen Delivery Device VENT Blood Gas Liter Flow 6 L/M Blood Gas Inspired Oxygen 50 % White Blood Count 12.2 TH/MM3 Red Blood Count 3.34 MIL/MM3 Hemoglobin 9.5 GM/DL Hematocrit 28.6 % Mean Corpuscular Volume 85.6 FL Mean Corpuscular Hemoglobin 28.4 PG Mean Corpuscular Hemoglobin Concent 33.2 % Red Cell Distribution Width 16.0 % Platelet Count 331 TH/MM3 Mean Platelet Volume 7.6 FL Neutrophils (%) (Auto) 77.6 % Lymphocytes (%) (Auto) 14.8 % Monocytes (%) (Auto) 6.3 % Eosinophils (%) (Auto) 1.2 % Basophils (%) (Auto) 0.1 % Neutrophils # (Auto) 9.5 TH/MM3 Lymphocytes # (Auto) 1.8 TH/MM3 Monocytes # (Auto) 0.8 TH/MM3 Eosinophils # (Auto) 0.1 TH/MM3 Basophils # (Auto) 0.0 TH/MM3 CBC Comment DIFF FINAL Differential Comment Blood Urea Nitrogen 32 MG/DL Creatinine 1.12 MG/DL Random Glucose 89 MG/DL Total Protein 6.4 GM/DL Albumin 2.5 GM/DL Calcium Level 8.9 MG/DL Phosphorus Level 2.3 MG/DL Magnesium Level 2.2 MG/DL Alkaline Phosphatase 61 U/L Aspartate Amino Transf (AST/SGOT) 24 U/L Alanine Aminotransferase (ALT/SGPT) 35 U/L Total Bilirubin 0.6 MG/DL Sodium Level 137 MEQ/L Potassium Level 3.7 MEQ/L Chloride Level 104 MEQ/L Carbon Dioxide Level 25.0 MEQ/L Anion Gap 8 MEQ/L Estimat Glomerular Filtration Rate 47 ML/MIN Random Vancomycin Level 3.0 COMMENT Imaging Last Impressions Chest X-Ray 06/06/17 0600 Signed Impressions: Service Date/Time: Tuesday, June 06, 2017 06:00 - CONCLUSION: 1. Patchy bilateral air space disease. Findings slightly improved on the right and slightly worse on the left since June 04. Hector Montelongo MD Chest CT 05/26/17 0000 Signed Impressions: Service Date/Time: Friday, May 26, 2017 09:31 - CONCLUSION: 1. Multiple patchy areas of consolidation of both lungs which could indicate pulmonary edema. 2. Small bilateral pleural effusions right greater than left. 3. Mediastinal adenopathy and questionable mild hilar adenopathy. 4. Mild cardiomegaly. Bandar Pruitt MD Assessment and Plan Problem List: (1) Acute CHF (congestive heart failure) ICD Codes: I50.9 - Heart failure, unspecified Status: Acute (2) NSTEMI (non-ST elevated myocardial infarction) ICD Codes: I21.4 - Non-ST elevation (NSTEMI) myocardial infarction Status: Resolved (3) CAD (coronary artery disease) ICD Codes: I25.10 - Atherosclerotic heart disease of [place] coronary artery without angina pectoris Status: Chronic (4) High degree atrioventricular block ICD Codes: I44.39 - Other atrioventricular block Status: Resolved (5) Respiratory failure ICD Codes: J96.90 - Respiratory failure, unspecified, unspecified whether with hypoxia or hypercapnia Status: Acute (6) PNA (pneumonia) ICD Codes: J18.9 - Pneumonia, unspecified organism Status: Acute (7) Ischemic cardiomyopathy ICD Codes: I25.5 - Ischemic cardiomyopathy Status: Acute Assessment and Plan Increase activity today. Remove Garcia. Remains stable from cardiac standpoint. Continue Brilinta and baby ASA to prevent stent thrombosis. Continue carvedilol and lisinopril for BP control. PT. Calorie intake still low. Anticipate transfer to rehab soon. D/w pt and daughter. F/u w Dr. Roa after discharge. Problem Qualifiers (1) PNA (pneumonia): Mg Daly MD Jun 07, 2017 10:35
[2017-06-07] MEDS ORDERED: MAGNESIUM CITRATE SOLN 300 ML BTL PO ONE (11:00)
--- NOTE | 2017-06-07 11:40 | HHI.PR ---
Subjective Remarks Weak and Has some cough. No fever. On O2 3 L.. CXR shows improved bilateral infiltrates. Objective Vital Signs Date Time Temp Pulse Resp B/P (MAP) Pulse Ox O2 Delivery O2 Flow Rate FiO2 06/07/17 08:04 98.4 63 18 130/64 (86) 90 06/07/17 04:32 98.0 55 18 144/72 (96) 97 06/07/17 01:02 98.1 52 16 148/69 (95) 97 06/07/17 00:59 Nasal Cannula 3.00 06/06/17 20:38 97.6 53 16 173/70 (104) 96 06/06/17 20:36 Nasal Cannula 3.00 06/06/17 20:00 56 06/06/17 16:04 97.9 54 20 153/70 (97) 97 06/06/17 14:35 3 Nasal Cannula 98 06/06/17 12:04 97.6 51 18 147/61 (89) 94 I/O 06/06/17 06/06/17 06/06/17 06/07/17 06/07/17 06/07/17 07:00 15:00 23:00 07:00 15:00 23:00 Intake Total 580 ml 250 ml 770 ml 580 ml Output Total 1700 ml 1000 ml 900 ml Balance -1120 ml 250 ml -230 ml -320 ml Intake Oral 480 ml 720 ml 480 ml IV Total 100 ml 250 ml 50 ml 100 ml Output Urine Total 1700 ml 1000 ml 900 ml # Bowel Movements 0 Result Diagram: 06/06/17 0735 06/06/17 0735 Objective Remarks GENERAL: This averagely built elderly lady who is sitting upright, pale and no distress HEENT: Head normocephalic. Pupils are reactive. Tongue is moist. Throat was clear. NECK: Supple. No venous distension. No thyromegaly or lymphadenopathy. CHEST: Distant breath sounds with Occ crackles heard at both lung bases. HEART: The heart sounds are irregular, S1-S2. No murmur. No S3. ABDOMEN: Abdomen is soft, protuberant without masses. No organomegaly or tenderness. Bowel sounds are active. EXTREMITIES: No edema. Reflexes are 1 + with no gross motor deficits. NEURO:No deficit SKIN: Skin was warm and dry. Assessment and Plan Assessment and Plan IMPRESSION 1. Acute respiratory failure, resolving. 2. Bilateral pulmonary infiltrates with pulmonary edema versus atypical pneumonia. 3. Status post coronary artery stenting with acute coronary syndrome. 4. History of diabetes mellitus type 2. 5. Hypertension and hyperlipidemia. 6. High degree AV block, resolved. Plan : 1. Wean o2 to keep sat >92. 2. Continue diuretics daily. 3. IS at bedside q3h. 4. Nebs qid , duoneb. 5. Cont antibiotics 6. Cont Prednisone 10 mg daily 7. D/C Bipap 8. BMP in am 9. Rehab Placement Missy Armstrong MD Jun 07, 2017 11:40
--- NOTE | 2017-06-07 12:44 | HHI.PR ---
Subjective Remarks f/u for SOB SOB a lot better, on 2 L of oxygen, afebrile, agree to go to rehab. Still gets winded when walking, constipated Objective Vitals Vital Signs Date Time Temp Pulse Resp B/P (MAP) Pulse Ox O2 Delivery O2 Flow Rate FiO2 06/07/17 12:29 97.6 57 18 102/49 (66) 94 06/07/17 08:04 98.4 63 18 130/64 (86) 90 06/07/17 04:32 98.0 55 18 144/72 (96) 97 06/07/17 01:02 98.1 52 16 148/69 (95) 97 06/07/17 00:59 Nasal Cannula 3.00 06/06/17 20:38 97.6 53 16 173/70 (104) 96 06/06/17 20:36 Nasal Cannula 3.00 06/06/17 20:00 56 06/06/17 16:04 97.9 54 20 153/70 (97) 97 06/06/17 14:35 3 Nasal Cannula 98 I/O 06/06/17 06/06/17 06/06/17 06/07/17 06/07/17 06/07/17 07:00 15:00 23:00 07:00 15:00 23:00 Intake Total 580 ml 250 ml 770 ml 580 ml Output Total 1700 ml 1000 ml 900 ml Balance -1120 ml 250 ml -230 ml -320 ml Intake Oral 480 ml 720 ml 480 ml IV Total 100 ml 250 ml 50 ml 100 ml Output Urine Total 1700 ml 1000 ml 900 ml # Bowel Movements 0 Result Diagram: 06/06/17 0735 06/06/1735 Objective Remarks Not in distress PERRL, pink conjunctiva without injection, anicteric Supple neck Normal rate and regular rhythm Decreased breath sounds, no crackles Normal bowel sounds, soft, non-tender, nondistended, no guarding. Trace edema AAO x3 A/P Problem List: (1) Acute hypoxemic respiratory failure ICD Code: J96.01 - Acute respiratory failure with hypoxia Status: Acute (2) Respiratory distress ICD Code: R06.00 - Dyspnea, unspecified Status: Acute (3) Ischemic cardiomyopathy ICD Code: I25.5 - Ischemic cardiomyopathy Status: Acute (4) Acute diastolic heart failure ICD Code: I50.31 - Acute diastolic (congestive) heart failure Status: Acute (5) EZ (acute kidney injury) ICD Code: N17.9 - Acute kidney failure, unspecified Status: Acute (6) CKD (chronic kidney disease), stage III ICD Code: N18.3 - Chronic kidney disease, stage 3 (moderate) Status: Chronic (7) Pulmonary edema ICD Code: J81.1 - Chronic pulmonary edema Status: Acute (8) High degree atrioventricular block ICD Code: I44.39 - Other atrioventricular block Status: Resolved (9) CAD (coronary artery disease) ICD Code: I25.10 - Atherosclerotic heart disease of [place] coronary artery without angina pectoris Status: Chronic (10) NSTEMI (non-ST elevated myocardial infarction) ICD Code: I21.4 - Non-ST elevation (NSTEMI) myocardial infarction Status: Resolved (11) Encephalopathy acute ICD Code: G93.40 - Encephalopathy, unspecified Status: Resolved (12) Constipation ICD Code: K59.00 - Constipation, unspecified Status: Acute (13) Critical illness myopathy ICD Code: G72.81 - Critical illness myopathy Status: Acute Assessment and Plan Depression disorder Anxiety disorder Chronic benzodiazepine use Encephalopathy - resolved Acute hypercapnic hypoxic Respiratory failure secondary to HCAP and pulmonary edema (Cardiogenic vs ARDS) - previously intubated, Extubated 05/26. On NC. Continue duo nebs, continue taper steroids, pulmonary following. Stop vancomycin, switch Zosyn to Augmentin. NSTEMI Pulmonary edema High degree AV block-now resolved Dyslipidemia Hypertension Hypotension [place] -05/17 Status post angioplasty and stents of the distal LAD and mid LAD, and angioplasty and stenting of the proximal/ostial RCA Echocardiogram revealed EF 60-65%. Asymmetric septal hypertrophy. Trace MR. continue carvedilol, clonidine, hydralazine, hold this in January. Temporary Pacemaker is been removed 05/18, continue aspirin and Brilinta, continue statins. Bilateral infiltrate on chest x-ray most likely from pulmonary edema (ARDS vs cardiogenic)-these infiltrates present on CXR immediately after intubation, so VAP is unlikely. ALL cultures negative, doubt infectious etiology Monitor off all antibiotics. Infectious disease following. On nystatin swish and spit every 6 hours, Diflucan added 05/30 05/20 fiberoptic bronchoscopy with BAL no growth Legionella, pneumococcal, influenza A and B antigens- results negative Repeat urine and blood cultures no growth Continue IV Vancomycin and IV Zosyn to treat suspected HCAP vs VAP vs aspiration PNA since patient was encephalopathic. Plan to stop vancomycin, switch Zosyn to oral. We'll discuss with infectious disease. Diabetes mellitus - Continue Levemir at current dose, continue sliding scale Chronic kidney disease stage 3 -Improving, monitor, BMP stable Constipation-we'll give magnesium citrate, Metamucil once a day. Weakness/Critical illness myopathy - Consult Pt, OOB to chair. Discharge to rehabilitation GI prophylaxis Pepcid DVT- Teds, SCDs, heparin subcutaneous Discussed with pulmonary. Discharge Planning Discharge once placement ready and cleared by infectious disease. Deborah Dang MD Jun 07, 2017 12:44
[2017-06-07] MEDS ORDERED: COZA50TA PO (12:56)
[2017-06-07] MEDS ORDERED: AMLO5 PO (12:56)
[2017-06-07] MEDS ORDERED: LEVEMIR SQ (12:56)
[2017-06-07] MEDS ORDERED: KONS100P3 PO (12:56)
[2017-06-07] MEDS ORDERED: CLON-481 PO (12:56)
[2017-06-07] MEDS ORDERED: PRED20 PO (12:56)
[2017-06-07] MEDS ORDERED: BRIL90TA PO (12:56)
[2017-06-07] MEDS ORDERED: NYST1000 SWISH-SWAL (12:56)
[2017-06-07] MEDS ORDERED: ASPI-99 PO (12:56)
[2017-06-07] MEDS ORDERED: ALBU0.08 NEB (12:56)
--- NOTE | 2017-06-07 12:57 | HHI.DS ---
Discharge Summary Admission Date May 17, 2017 at 00:19 Admitting Diagnosis NSTEMI, PNA (1) Acute hypoxemic respiratory failure ICD Code: J96.01 - Acute respiratory failure with hypoxia Status: Acute (2) Respiratory distress ICD Code: R06.00 - Dyspnea, unspecified Status: Acute (3) Ischemic cardiomyopathy ICD Code: I25.5 - Ischemic cardiomyopathy Status: Acute (4) Acute diastolic heart failure ICD Code: I50.31 - Acute diastolic (congestive) heart failure Status: Acute (5) EZ (acute kidney injury) ICD Code: N17.9 - Acute kidney failure, unspecified Status: Acute (6) CKD (chronic kidney disease), stage III ICD Code: N18.3 - Chronic kidney disease, stage 3 (moderate) Status: Chronic (7) Pulmonary edema ICD Code: J81.1 - Chronic pulmonary edema Status: Acute (8) High degree atrioventricular block ICD Code: I44.39 - Other atrioventricular block Status: Resolved (9) CAD (coronary artery disease) ICD Code: I25.10 - Atherosclerotic heart disease of [place] coronary artery without angina pectoris Status: Chronic (10) NSTEMI (non-ST elevated myocardial infarction) ICD Code: I21.4 - Non-ST elevation (NSTEMI) myocardial infarction Status: Resolved (11) Encephalopathy acute ICD Code: G93.40 - Encephalopathy, unspecified Status: Resolved (12) Constipation ICD Code: K59.00 - Constipation, unspecified Status: Acute (13) Critical illness myopathy ICD Code: G72.81 - Critical illness myopathy Status: Acute Brief History - From Admission Written by CURTIS Bolivar acting as scribe for [jose m] on 05/17/17 at 02: 54. 81 y/o female with a history of HTN, afib, DM, VA, and CKD stage 3 presented to the ED with complaints of a cough, sob and chest tightness for the last week. She states she has had a productive cough with white sputum production with increasing sob. She denies any fevers at home and developed chills tonight. She states when she coughs she has chest tightness with no radiation. Denies any nausea, vomiting, diarrhea, dysuria, bloody stools or head aches. Spud Grader: Dr. Roa Stained Glass Artist: Dr. Watson CBC/BMP: 06/06/17 0735 06/06/17 0735 Significant Findings Laboratory Tests Test 06/05/17 08:09 06/06/17 07:35 White Blood Count 12.5 TH/MM3 (4.0-11.0) 12.2 TH/MM3 (4.0-11.0) Red Blood Count 3.28 MIL/MM3 (4.00-5.30) 3.34 MIL/MM3 (4.00-5.30) Hemoglobin 8.9 GM/DL (11.6-15.3) 9.5 GM/DL (11.6-15.3) Hematocrit 27.9 % (35.0-46.0) 28.6 % (35.0-46.0) Neutrophils (%) (Auto) 88.5 % (16.0-70.0) 77.6 % (16.0-70.0) Lymphocytes (%) (Auto) 7.5 % (9.0-44.0) Neutrophils # (Auto) 11.1 TH/MM3 (1.8-7.7) 9.5 TH/MM3 (1.8-7.7) Lymphocytes # (Auto) 0.9 TH/MM3 (1.0-4.8) Blood Urea Nitrogen 45 MG/DL (7-18) 32 MG/DL (7-18) Creatinine 1.22 MG/DL (0.50-1.00) 1.12 MG/DL (0.50-1.00) Random Glucose 158 MG/DL (74-106) Albumin 2.6 GM/DL (3.4-5.0) 2.5 GM/DL (3.4-5.0) Estimat Glomerular Filtration Rate 43 ML/MIN (>89) 47 ML/MIN (>89) Phosphorus Level 2.3 MG/DL (2.5-4.9) PE at Discharge Not in distress PERRL, pink conjunctiva without injection, anicteric Supple neck Normal rate and regular rhythm Decreased breath sounds, no crackles Normal bowel sounds, soft, non-tender, nondistended, no guarding. Trace edema AAO x3 LaurenceDeborah MD Jun 07, 2017 12:57
[2017-06-07] MEDS: SODIUM CHLORIDE 0.9% FLUSH 10 ML FLUSH IV FLUSH SCH ×2 (17:30→20:22)
[2017-06-07] MEDS: ATORVASTATIN 10 MG TAB PO SCH (20:20)
[2017-06-07] MEDS: hydrALAZINE HCL 20 MG/ML VIAL IV PUSH PRN (20:34)
[2017-06-08] VITALS: BP 140/67; PULSE 55; RESP 20; TEMP 98.1; O2SAT 95
[2017-06-08] MEDS: cloNIDine HCL 0.3 MG TAB PO SCH ×2 (02:36→10:14)
[2017-06-08 04:00] VITALS: BP 140/67; PULSE 55; RESP 20; TEMP 98.1; O2SAT 95
[2017-06-08] MEDS: ARTIFICIAL TEARS OPTH SOLN 15 ML BTL EACH EYE SCH ×2 (06:32→14:00)
[2017-06-08] MEDS: INSULIN ASPART SUPPLEMENTAL SCALE SQ SCH ×2 (06:34→11:00)
[2017-06-08 08:00] VITALS: BP 164/72; PULSE 56; RESP 17; TEMP 98.2; O2SAT 95
[2017-06-08] MEDS: CHLORHEXIDINE 0.12% (ORAL KIT) 15 ML CUP MT SCH (08:00)
[2017-06-08] MEDS ORDERED: predniSONE 10 MG TAB PO SCH (09:00)
[2017-06-08] MEDS ORDERED: PSYLLIUM FIBER SF/GF 6 GM POWD PKT PO SCH (09:00)
[2017-06-08 09:14] VITALS: O2SAT 97
[2017-06-08] MEDS: NYSTATIN SUSP 500,000 U/5 ML CUP SWISH-SWAL SCH ×2 (10:11→12:08)
[2017-06-08] MEDS: LOSARTAN 50 MG TAB PO SCH (10:12)
[2017-06-08] MEDS: amLODIPine BESYLATE 5 MG TAB PO SCH (10:12)
[2017-06-08] MEDS: ASPIRIN EC 81 MG TABEC PO SCH (10:13)
[2017-06-08] MEDS: FAMOTIDINE 20 MG TAB PO SCH (10:13)
[2017-06-08] MEDS: DOCUSATE SODIUM 50 MG/SENNA 8.6 MG TAB PO SCH (10:14)
[2017-06-08] MEDS: SODIUM CHLORIDE 0.9% FLUSH 10 ML FLUSH IV FLUSH SCH (10:24)
[2017-06-08] MEDS: busPIRone HCL 10 MG TAB PO SCH (10:24)
[2017-06-08] MEDS: TICAGRELOR 90 MG TAB PO SCH (10:24)
[2017-06-08] MEDS: HEPARIN SODIUM - SQ 10,000 UNITS/ML VIAL SQ SCH (10:26)
[2017-06-08] MEDS: INSULIN DETEMIR 100 UNITS/ML VIAL SQ SCH (10:29)
[2017-06-08 11:00] VITALS: BP 177/77
--- NOTE | 2017-06-08 11:12 | HHI.DCPOC ---
Discharge Care Plan Diagnosis: (1) Pneumonia (2) Anxiety and depression (3) Acute respiratory failure with hypoxia and hypercapnia (4) CAD (coronary artery disease) (5) NSTEMI (non-ST elevated myocardial infarction) (6) Pulmonary edema (7) Encephalopathy acute (8) Hypertension Goals to Promote Your Health * To prevent worsening of your condition and complications * To maintain your health at the optimal level Directions to Meet Your Goals Take your medications as prescribed Follow your dietary instruction Follow activity as directed Keep your appointments as scheduled Take your immunizations and boosters as scheduled If your symptoms worsen call your PCP, if no PCP go to Urgent Care Center or Emergency Room Smoking is Dangerous to Your Health. Avoid second hand smoke Call the 24-hour hour crisis hotline for domestic abuse at Bertram Corbin MD Jun 08, 2017 11:12
--- NOTE | 2017-06-08 11:19 | HHI.DS ---
cc: Manas Borja MD Discharge Summary Admission Date May 17, 2017 at 00:19 Discharge Date: Jun 08, 2017 Admitting Diagnosis NSTEMI, PNA (1) Acute hypoxemic respiratory failure ICD Code: J96.01 - Acute respiratory failure with hypoxia Status: Acute (2) Respiratory distress ICD Code: R06.00 - Dyspnea, unspecified Status: Acute (3) Ischemic cardiomyopathy ICD Code: I25.5 - Ischemic cardiomyopathy Status: Acute (4) Acute diastolic heart failure ICD Code: I50.31 - Acute diastolic (congestive) heart failure Status: Acute (5) EZ (acute kidney injury) ICD Code: N17.9 - Acute kidney failure, unspecified Status: Acute (6) CKD (chronic kidney disease), stage III ICD Code: N18.3 - Chronic kidney disease, stage 3 (moderate) Status: Chronic (7) Pulmonary edema ICD Code: J81.1 - Chronic pulmonary edema Status: Acute (8) High degree atrioventricular block ICD Code: I44.39 - Other atrioventricular block Status: Resolved (9) CAD (coronary artery disease) ICD Code: I25.10 - Atherosclerotic heart disease of [place] coronary artery without angina pectoris Status: Chronic (10) NSTEMI (non-ST elevated myocardial infarction) ICD Code: I21.4 - Non-ST elevation (NSTEMI) myocardial infarction Status: Resolved (11) Encephalopathy acute ICD Code: G93.40 - Encephalopathy, unspecified Status: Resolved (12) Constipation ICD Code: K59.00 - Constipation, unspecified Status: Acute (13) Critical illness myopathy ICD Code: G72.81 - Critical illness myopathy Status: Acute Procedures 05/17/17 intubation 05/20/17 fiberoptic bronchoscopy Brief History - From Admission 81 y/o female with a history of HTN, afib, DM, AL, and CKD stage 3 presented to the ED with complaints of a cough, sob and chest tightness for the last week. She states she has had a productive cough with white sputum production with increasing sob. She denies any fevers at home and developed chills tonight. She states when she coughs she has chest tightness with no radiation. Denies any nausea, vomiting, diarrhea, dysuria, bloody stools or head aches. Carpenter Ship: Dr. Roa Admitting Interviewer: Dr. Watson CBC/BMP: 06/06/17 0735 06/06/17 0735 Significant Findings Laboratory Tests Test 06/06/17 07:35 White Blood Count 12.2 TH/MM3 (4.0-11.0) Red Blood Count 3.34 MIL/MM3 (4.00-5.30) Hemoglobin 9.5 GM/DL (11.6-15.3) Hematocrit 28.6 % (35.0-46.0) Neutrophils (%) (Auto) 77.6 % (16.0-70.0) Neutrophils # (Auto) 9.5 TH/MM3 (1.8-7.7) Blood Urea Nitrogen 32 MG/DL (7-18) Creatinine 1.12 MG/DL (0.50-1.00) Albumin 2.5 GM/DL (3.4-5.0) Phosphorus Level 2.3 MG/DL (2.5-4.9) Estimat Glomerular Filtration Rate 47 ML/MIN (>89) Imaging Last Impressions Chest X-Ray 06/06/17 0600 Signed Impressions: Service Date/Time: Tuesday, June 06, 2017 06:00 - CONCLUSION: 1. Patchy bilateral air space disease. Findings slightly improved on the right and slightly worse on the left since June 04. Hector Montelongo MD Chest CT 05/26/17 0000 Signed Impressions: Service Date/Time: Friday, May 26, 2017 09:31 - CONCLUSION: 1. Multiple patchy areas of consolidation of both lungs which could indicate pulmonary edema. 2. Small bilateral pleural effusions right greater than left. 3. Mediastinal adenopathy and questionable mild hilar adenopathy. 4. Mild cardiomegaly. Bandar Pruitt MD PE at Discharge Not in distress PERRL, pink conjunctiva without injection, anicteric Supple neck Normal rate and regular rhythm Decreased breath sounds, no crackles Normal bowel sounds, soft, non-tender, nondistended, no guarding. Trace edema AAO x3 Pt update on day of discharge The patient states that she is feeling better today. Still with dyspnea on exertion, but slightly better. Still feels very weak. Feels that she is ready to go to rehabilitation. Hospital Course The patient was admitted for management of acute pneumonia, non-STEMI. She developed worsening respiratory failure and was transferred to the critical care service. She was intubated and placed on mechanical ventilation. Cardiology was consulted regarding non-ST elevation AL. Infectious disease was consulted for management of recurrent fever likely secondary to ventilator associated pneumonia. Antibiotics were adjusted. Cultures remain negative. Patient was extubated. Her respiratory status improved. Pulmonology was consulted and the patient was transferred to the hospitalist service. She was continued on supplemental oxygen, bronchodilators, steroids. She remained weak, but continued to improve throughout the hospitalization. [facility]. Pt Condition on Discharge: Stable Discharge Disposition: Discharge to SNF Discharge Time: > 30 minutes Discharge Instructions DIET: Follow Instructions for: Diabetic Diet Activities you can perform: See Additionl Instruction Other Activity Instructions: With assistance Follow up Referrals: PCP Follow-up - 2 Weeks SNF/[facility]/ - 2-3 Days New Medications: Albuterol Neb (Albuterol Neb) 2.5 Mg/3 Ml Neb 2.5 MG NEB Q2HR NEB PRN for dyspnea, #10 NEBULE Amlodipine (Norvasc) 5 Mg Tab 5 MG PO DAILY for Blood Pressure Management, #[address] (Adult Aspirin EC Low Strength) 81 Mg Tabec 81 MG PO DAILY for cad, #30 TAB Clonidine (Catapres) 0.3 Mg Tab 0.3 MG PO Q8H for Blood Pressure Management, #60 TAB Insulin Detemir Inj (Levemir Inj) 1,000 unit/ 10 ML Vial 18 UNITS SQ Q12HR for Blood Sugar Management, #30 INJECTION Do not mix with any other Insulin. Losartan (Cozaar) 50 Mg Tab 100 MG PO DAILY for Blood Pressure Management, #30 TAB Nystatin Liq (Nystatin Liq) 100,000 unit/ml Susp 5 ML SWISH-SWAL QID for trush, #28 BOTTLE Prednisone (Prednisone) 20 Mg Tab 10 MG PO DAILY for Breathing, #3 TAB Psyllium Powder (Konsyl) 100 % Pow 1 PKT PO DAILY for Constipation, #30 CONTAINER Ticagrelor (Brilinta) 90 Mg Tab 90 MG PO BID for CAD, #60 TAB Continued Medications: Atorvastatin (Atorvastatin) 20 Mg Tab 20 MG PO EVERY OTHER DAY for Cholesterol Management, #30 TAB 0 Refills Buspirone (Buspirone) 30 Mg Tab 30 MG PO BID for Anxiety, TAB 0 Refills Calcium Carbonate-Cholecalciferol (Calcium 600 with Vitamin D) 600-400 mg-Unit Tab 1 TAB PO DAILY for Calcium Supplement, TAB 0 Refills Fish Oil-Cholecalciferol (Beals-3 Fish Oil/Vitamin) 1,000-1,000 Mg Cap 3 CAP PO BID for Nutritional Supplement, CAP 0 Refills Glucosamine-Chondroitin (Glucosamine-Chondroitin) 500-400 Mg Tab 1 TAB PO DAILY for Herbal Supplements, TAB 0 Refills Multiple Vitamin (Multiple Vitamin) 1 Tab 1 TAB PO DAILY for Nutritional Supplement, TAB 0 Refills Vitamins C & E (Cranberry Urinary Comfort) 1 Cap 1 CAP PO DAILY for Urinary Symptom Managemen, CAP 0 Refills Discontinued Medications: Amlodipine (Amlodipine) 5 Mg Tab 5 MG PO BID for Blood Pressure Management, #30 TAB 0 Refills Aspirin (Aspirin) 325 Mg Tab 325 MG PO DAILY, #30 TAB 0 Refills Clonidine (Clonidine) 0.1 Mg Tab 0.1 MG PO BID for Blood Pressure Management, #60 TAB 0 Refills Diltiazem CD 24 HR (Diltiazem CD 24 HR) 240 Mg Caper 240 MG PO DAILY, #30 CAP 0 Refills Hydralazine HCl (Hydralazine HCl) 25 Mg Tablet 10 MG PO TID for Blood Pressure Management, #90 TAB 0 Refills Hydrochlorothiazide (Hydrochlorothiazide) 12.5 Mg Tab 12.5 MG PO DAILY, #30 TAB 0 Refills Irbesartan-Hydrochlorothiazide (Irbesartan-Hydrochlorothiazide) 300-12.5 Mg Tab 1 TAB PO DAILY for Blood Pressure Management, #30 TAB 0 Refills Lorazepam (Lorazepam) 0.5 Mg Tab 0.5 MG PO BID for ANXIETY, TAB 0 Refills Metformin (Metformin) 500 Mg Tab 750 MG PO BIDPC for Blood Sugar Management, #60 TAB 0 Refills With meals Metoprolol Tartrate (Metoprolol Tartrate) 50 Mg Tab 50 MG PO HS, #30 TAB 0 Refills Bertram Corbin MD Jun 08, 2017 11:19
[2017-06-08 12:00] VITALS: PULSE 54; RESP 17; TEMP 98.2; O2SAT 96
--- NOTE | 2017-06-08 12:51 | HHI.PR ---
Subjective Remarks Weak but walked in room. Less SOB. No fever. On O2 2 L.. CXR shows improved bilateral infiltrates. Objective Vital Signs Date Time Temp Pulse Resp B/P (MAP) Pulse Ox O2 Delivery O2 Flow Rate FiO2 06/08/17 12:00 98.2 54 17 96 06/08/17 11:00 177/77 (110) 06/08/17 09:14 97 Nasal Cannula 3.00 06/08/17 08:00 98.2 56 17 164/72 (102) 95 06/08/17 04:00 98.1 55 20 140/67 (91) 95 06/08/17 00:00 98.1 55 20 140/67 (91) 95 06/07/17 21:12 52 122/58 (79) 06/07/17 20:00 97.4 53 20 180/77 (111) 97 06/07/17 19:00 Nasal Cannula 3.00 06/07/17 16:23 97.7 54 20 136/63 (87) 96 06/07/17 14:15 95 Nasal Cannula 3.00 06/07/17 14:14 60 I/O 06/07/17 06/07/17 06/07/17 06/08/17 06/08/17 06/08/17 07:00 15:00 23:00 07:00 15:00 23:00 Intake Total 580 ml 720 ml 240 ml Output Total 900 ml 200 ml Balance -320 ml 520 ml 240 ml Intake Oral 480 ml 720 ml 240 ml IV Total 100 ml Output Urine Total 900 ml 200 ml # Voids 4 # Bowel Movements 2 1 Result Diagram: 06/06/17 0735 06/06/1735 Objective Remarks GENERAL: This averagely built elderly lady who is pale and no distress HEENT: Head normocephalic. Pupils are reactive. Tongue is moist. Throat was clear. NECK: Supple. No venous distension. No thyromegaly or lymphadenopathy. CHEST: Distant breath sounds with few wheezes and Occ crackles heard at both lung bases. HEART: The heart sounds are irregular, S1-S2. No murmur. No S3. ABDOMEN: Abdomen is soft, protuberant without masses. No organomegaly or tenderness. Bowel sounds are active. EXTREMITIES: No edema. Reflexes are 1 + with no gross motor deficits. NEURO:No deficit SKIN: Skin was warm and dry. Assessment and Plan Assessment and Plan IMPRESSION 1. Acute respiratory failure, resolved 2. Bilateral pulmonary infiltrates with pulmonary edema versus atypical pneumonia. 3. Status post coronary artery stenting with acute coronary syndrome. 4. History of diabetes mellitus type 2. 5. Hypertension and hyperlipidemia. 6. High degree AV block, resolved. Plan : 1. Wean o2 to keep sat >92. 2. Continue diuretics daily. 3. IS at bedside q3h. 4. Nebs qid , duoneb. 5. Cont antibiotics for 5 days 6. Prednisone 10 mg daily 7. Transfer to rehab 8. Will F/U as OP in 2 weeks Missy Armstrong MD Jun 08, 2017 12:51
--- NOTE | 2017-06-08 14:02 | PD.WCN.NOT ---
Wound Consult Description: Unstageable wound to sacrococcygeal area and bilateral buttock with possible etiology of moisture and pressure Communicated with: DEEP Oropeza and Doctor Corbin Recommendation: Please continue to turn patient every 2 hours and PRN Cleanse bilateral buttock, sacral and coccyx wound all measured as one with normal saline only and pat dry.Apply chandler thick coverage of Santyl ointment to wound bed.Apply skin prep to periwound before applying dry cover dressing. Please change dressing daily Additional Information: Patient seen for follow up of wound to Sacrococcygeal and bilateral buttock area all measured as one wound. Patient able to turn to L side for wound assessment to reveal unstageable pressure injury that has improved from previous assessment. Wound presents with ~30% soft black eschar, ~20% yellow slough and ~50% clean pale red tissue. Incontinence associated dermatitis to periwound has resolved. Periwound is unremarkable. Wound presents with a butterfly shape with attached well defined wound margins. Drainage is scant and sero-sanguinous without odor.Wound measures 7 cm x 8 cm x slough. Applied skin prep before applying dry cover dressing. Danae Perkins [facility] Jun 08, 2017 14:02
[2017-06-08] MEDS ORDERED: COLL30T TOPICAL (14:31)
--- NOTE | 2017-06-08 19:48 | PD.CARD.PN ---
Subjective Subjective Remarks No CP or SOB, cough improved Objective Vital Signs / I&O Vital Signs Date Time Temp Pulse Resp B/P (MAP) Pulse Ox O2 Delivery O2 Flow Rate FiO2 06/08/17 18:12 Nasal Cannula 3.00 06/08/17 12:00 98.2 54 17 96 06/08/17 11:00 177/77 (110) 06/08/17 09:14 97 Nasal Cannula 3.00 06/08/17 08:00 98.2 56 17 164/72 (102) 95 06/08/17 04:00 98.1 55 20 140/67 (91) 95 06/08/17 00:00 98.1 55 20 140/67 (91) 95 06/07/17 21:12 52 122/58 (79) 06/07/17 20:00 97.4 53 20 180/77 (111) 97 I/O 06/07/17 06/07/17 06/07/17 06/08/17 06/08/17 06/08/17 07:00 15:00 23:00 07:00 15:00 23:00 Intake Total 580 ml 720 ml 240 ml 960 ml Output Total 900 ml 200 ml Balance -320 ml 520 ml 240 ml 960 ml Intake Oral 480 ml 720 ml 240 ml 960 ml IV Total 100 ml Output Urine Total 900 ml 200 ml # Voids 4 3 # Bowel Movements 2 1 1 Physical Exam GENERAL: In NAD SKIN: Warm and dry. HEAD: Normocephalic. EYES: No scleral icterus. No injection or drainage. NECK: Supple, trachea midline. No JVD or lymphadenopathy. CARDIOVASCULAR: Regular rate and rhythm without murmurs, gallops, or rubs. RESPIRATORY: Breath sounds equal bilaterally. No accessory muscle use. GASTROINTESTINAL: Abdomen soft, non-tender, nondistended. MUSCULOSKELETAL: No cyanosis, or edema. Groin stable Laboratory Laboratory Tests Test 05/16/17 22:40 05/17/17 02:25 05/17/17 11:56 05/18/17 04:02 Prothrombin Time 11.4 SEC Prothromb Time International Ratio 1.0 RATIO Nasal Screen MRSA (PCR) MRSA NOT DETECTED Troponin I 0.60 NG/ML Creatine Kinase MB 4.7 NG/ML Triglycerides Level 134 MG/DL Cholesterol Level 82 MG/DL LDL Cholesterol 27 MG/DL HDL Cholesterol 28.5 MG/DL Cholesterol/HDL Ratio 2.87 RATIO Test 05/19/17 04:08 05/21/17 16:20 05/25/17 05:59 05/26/17 04:26 Activated Partial Thromboplast Time 33.9 SEC Urine RBC 26 /hpf Urine Amorphous Sediment RARE Urine Bacteria RARE /hpf Helmet Cells OCC Keratocytes Total Creatine Kinase 56 U/L Metamyelocytes 1 % Myelocytes 1 % Spherocytes 1+ Test 05/26/17 14:10 05/27/17 03:50 06/01/17 13:38 06/01/17 15:30 Blood Gas Ventilator Setting CPAP 5/PS 5 Differential Total Cells Counted 100 Neutrophils % (Manual) 76 % Band Neutrophils % 5 % Lymphocytes % 12 % Monocytes % 5 % Eosinophils % 2 % Neutrophils # (Manual) 7.8 TH/MM3 Platelet Estimate NORMAL Platelet Morphology Comment NORMAL Ovalocytes 1+ B-Type Natriuretic Peptide 73 PG/ML Urine Color YELLOW Urine Turbidity HAZY Urine pH 5.5 Urine Specific [place] 1.013 Urine Protein 30 mg/dL Urine Glucose (UA) NEG mg/dL Urine Ketones NEG mg/dL Urine Occult Blood NEG Urine Nitrite NEG Urine Bilirubin NEG Urine Urobilinogen LESS THAN 2.0 MG/DL Urine Leukocyte Esterase NEG Urine WBC 2 /hpf Urine Squamous Epithelial Cells 1 /hpf Urine Hyaline Casts 2 /lpf Urine Granular Casts 11 /lpf Urine Mucus FEW /lpf Microscopic Urinalysis Comment CATH-CULT NOT IND Test 06/01/17 17:25 06/06/17 07:35 Blood Gas Puncture Site RT RADIAL Blood Gas Patient Temperature 98.6 Blood Gas HCO3 27 mmol/L Blood Gas Base Excess 3.4 mmol/L Blood Gas Oxygen Saturation 90 % Arterial Blood pH 7.48 Arterial Blood Partial Pressure CO2 37 mmHg Arterial Blood Partial Pressure O2 67 mmHg Arterial Blood Oxygen Content 11.0 Vol % Arterial Blood Carboxyhemoglobin 2.1 % Arterial Blood Methemoglobin 1.0 % Blood Gas Hemoglobin 8.6 G/DL Oxygen Delivery Device VENT Blood Gas Liter Flow 6 L/M Blood Gas Inspired Oxygen 50 % White Blood Count 12.2 TH/MM3 Red Blood Count 3.34 MIL/MM3 Hemoglobin 9.5 GM/DL Hematocrit 28.6 % Mean Corpuscular Volume 85.6 FL Mean Corpuscular Hemoglobin 28.4 PG Mean Corpuscular Hemoglobin Concent 33.2 % Red Cell Distribution Width 16.0 % Platelet Count 331 TH/MM3 Mean Platelet Volume 7.6 FL Neutrophils (%) (Auto) 77.6 % Lymphocytes (%) (Auto) 14.8 % Monocytes (%) (Auto) 6.3 % Eosinophils (%) (Auto) 1.2 % Basophils (%) (Auto) 0.1 % Neutrophils # (Auto) 9.5 TH/MM3 Lymphocytes # (Auto) 1.8 TH/MM3 Monocytes # (Auto) 0.8 TH/MM3 Eosinophils # (Auto) 0.1 TH/MM3 Basophils # (Auto) 0.0 TH/MM3 CBC Comment DIFF FINAL Differential Comment Blood Urea Nitrogen 32 MG/DL Creatinine 1.12 MG/DL Random Glucose 89 MG/DL Total Protein 6.4 GM/DL Albumin 2.5 GM/DL Calcium Level 8.9 MG/DL Phosphorus Level 2.3 MG/DL Magnesium Level 2.2 MG/DL Alkaline Phosphatase 61 U/L Aspartate Amino Transf (AST/SGOT) 24 U/L Alanine Aminotransferase (ALT/SGPT) 35 U/L Total Bilirubin 0.6 MG/DL Sodium Level 137 MEQ/L Potassium Level 3.7 MEQ/L Chloride Level 104 MEQ/L Carbon Dioxide Level 25.0 MEQ/L Anion Gap 8 MEQ/L Estimat Glomerular Filtration Rate 47 ML/MIN Random Vancomycin Level 3.0 COMMENT Imaging Last Impressions Chest X-Ray 06/06/17 0600 Signed Impressions: Service Date/Time: Tuesday, June 06, 2017 06:00 - CONCLUSION: 1. Patchy bilateral air space disease. Findings slightly improved on the right and slightly worse on the left since June 04. Hector Montelongo MD Chest CT 05/26/17 0000 Signed Impressions: Service Date/Time: Friday, May 26, 2017 09:31 - CONCLUSION: 1. Multiple patchy areas of consolidation of both lungs which could indicate pulmonary edema. 2. Small bilateral pleural effusions right greater than left. 3. Mediastinal adenopathy and questionable mild hilar adenopathy. 4. Mild cardiomegaly. Bandar Pruitt MD Assessment and Plan Problem List: (1) Acute CHF (congestive heart failure) ICD Codes: I50.9 - Heart failure, unspecified Status: Acute (2) NSTEMI (non-ST elevated myocardial infarction) ICD Codes: I21.4 - Non-ST elevation (NSTEMI) myocardial infarction Status: Resolved (3) CAD (coronary artery disease) ICD Codes: I25.10 - Atherosclerotic heart disease of [place] coronary artery without angina pectoris Status: Chronic (4) High degree atrioventricular block ICD Codes: I44.39 - Other atrioventricular block Status: Resolved (5) Respiratory failure ICD Codes: J96.90 - Respiratory failure, unspecified, unspecified whether with hypoxia or hypercapnia Status: Acute (6) PNA (pneumonia) ICD Codes: J18.9 - Pneumonia, unspecified organism Status: Acute (7) Ischemic cardiomyopathy ICD Codes: I25.5 - Ischemic cardiomyopathy Status: Acute Assessment and Plan No new cardiac issues. Remains stable from cardiac standpoint. Continue Brilinta and baby ASA to prevent stent thrombosis. Continue carvedilol and lisinopril for BP control. PT. Transfer to rehab today. D/w pt and daughter. F/ u w Dr. Roa after discharge. Problem Qualifiers (1) PNA (pneumonia): Mg Daly MD Jun 08, 2017 19:48
[2017-06-09] MEDS ORDERED: COLLAGENASE OINT 30 GM TUBE TOPICAL SCH (09:00)
[2017-06-09] MEDS ORDERED: PHARMACY ORDERED LAB ONE (10:45)
== END 2017-06-08 18:04 | DRG 248 ==
LOC: NEPE 21:59 → NEDA 05-17 00:19 → HIME 05-17 02:00 → N04B 06-05 16:59
PROVIDERS: ADMIT Internal Medicine; ATTEND Family Medicine
PROC: 02713FZ Dilation of Coronary Artery, Two Arteries with Three Intraluminal Devices, Percutaneous Approach (ICD-10-PCS; principal; 2017-05-17)
PROC: 5A1955Z Respiratory Ventilation, Greater than 96 Consecutive Hours (ICD-10-PCS; 2017-05-17)
PROC: 4A023N7 Measurement of Cardiac Sampling and Pressure, Left Heart, Percutaneous Approach (ICD-10-PCS; 2017-05-17)
PROC: B2111ZZ Fluoroscopy of Multiple Coronary Arteries using Low Osmolar Contrast (ICD-10-PCS; 2017-05-17)
PROC: B2151ZZ Fluoroscopy of Left Heart using Low Osmolar Contrast (ICD-10-PCS; 2017-05-17)
PROC: 0BH17EZ Insertion of Endotracheal Airway into Trachea, Via Natural or Artificial Opening (ICD-10-PCS; 2017-05-17)
PROC: 5A1223Z Performance of Cardiac Pacing, Continuous (ICD-10-PCS; 2017-05-17)
PROC: 30233N1 Transfusion of Nonautologous Red Blood Cells into Peripheral Vein, Percutaneous Approach (ICD-10-PCS; 2017-05-19)
PROC: 0B9J8ZX Drainage of Left Lower Lung Lobe, Via Natural or Artificial Opening Endoscopic, Diagnostic (ICD-10-PCS; 2017-05-20)
PROC: 5A09357 Assistance with Respiratory Ventilation, Less than 24 Consecutive Hours, Continuous Positive Airway Pressure (ICD-10-PCS; 2017-05-26)
DX: I21.4 Non-ST elevation (NSTEMI) myocardial infarction (principal); J18.9 Pneumonia, unspecified organism; J69.0 Pneumonitis due to inhalation of food and vomit; G72.81 Critical illness myopathy; I50.31 Acute diastolic (congestive) heart failure; I44.2 Atrioventricular block, complete; G93.40 Encephalopathy, unspecified; J96.01 Acute respiratory failure with hypoxia; J96.02 Acute respiratory failure with hypercapnia; N17.9 Acute kidney failure, unspecified; B37.0 Candidal stomatitis; J95.851 Ventilator associated pneumonia; I13.0 Hypertensive heart and chronic kidney disease with heart failure and stage 1 through stage 4 chronic kidney disease, or unspecified chronic kidney disease; T82.855A Stenosis of coronary artery stent, initial encounter; E87.0 Hyperosmolality and hypernatremia; J98.11 Atelectasis; E11.22 Type 2 diabetes mellitus with diabetic chronic kidney disease; I48.2 Chronic atrial fibrillation; N18.3 Chronic kidney disease, stage 3 (moderate); I25.10 Atherosclerotic heart disease of native coronary artery without angina pectoris; I25.2 Old myocardial infarction; I25.5 Ischemic cardiomyopathy; E78.5 Hyperlipidemia, unspecified; R53.1 Weakness; F32.9 Major depressive disorder, single episode, unspecified; F41.9 Anxiety disorder, unspecified; E83.39 Other disorders of phosphorus metabolism; K59.00 Constipation, unspecified; T38.0X5A Adverse effect of glucocorticoids and synthetic analogues, initial encounter; E11.65 Type 2 diabetes mellitus with hyperglycemia; Y84.8 Other medical procedures as the cause of abnormal reaction of the patient, or of later complication, without mention of misadventure at the time of the procedure; Y83.1 Surgical operation with implant of artificial internal device as the cause of abnormal reaction of the patient, or of later complication, without mention of misadventure at the time of the procedure; Y95 Nosocomial condition; L89.320 Pressure ulcer of left buttock, unstageable; L89.310 Pressure ulcer of right buttock, unstageable; L89.150 Pressure ulcer of sacral region, unstageable; Z79.84 Long term (current) use of oral hypoglycemic drugs; Z88.8 Allergy status to other drugs, medicaments and biological substances
CPT/HCPCS: 31500; 31624; 33210; 36430; 36600; 71010; 71250; 76937; 80048; 80053; 80061; 80202; 81001; 82550; 82552; 82805; 82948; 83735; 83880; 84100; 84132; 84484; 85002; 85007; 85025; 85027; 85610; 85730; 86850; 86900; 86901; 86920; 87015; 87040; 87070; 87071; 87086; 87102; 87116; 87205; 87206; 87449; 87641; 87804; 88160; 92920; 92921; 93005; 93306; 93458; 94002; 94003; 94150; 94640; 94664; 94668; C1725; C1769; C1876; C1887; C1893; J0330; J0360; J0456; J0461; J0692; J0696; J1100; J1265; J1644; J1815; J1940; J1956; J2250; J2405; J2543; J2920; J2930; J3010; J3246; J3370; J3475; J3480; J7030; J7040; J7050; J7512; J7613; P9016; P9047

== ENCOUNTER → 2017-10-25 | Outpatient (CLI) | payer MEDICARE ==
[~2017-10-25] MED LIST changes: +ALBU0.08 NEB; +AMLO5 PO; -AMLO5TAB2 PO; +ASPI1TAB56 PO; -ASPI325T PO; +BRIL90TA PO; +CLON-481 PO; +COLL30T TOPICAL; +COZA50TA PO; -DILT-64 PO; -ESOM1CAP16 PO; -HYDR-3799 PO; -HYDR12.56 PO; -IRBE300T13 PO; +KONS100P3 PO; +LEVEMIR SQ; -LORA-373 PO; -METF500T PO; -METO50TA PO; +NYST1000 SWISH-SWAL; +PRED20 PO; -WALKER/ADULT/FO1 MIS
--- NOTE | 2017-10-25 14:09 | RADRPT ---
EXAM DATE/TIME: 10/25/2017 13:32 [facility] COMPARISON: CHEST SINGLE AP, June 06, 2017, 6:00. INDICATIONS : Short of breath with exertion. MEDICAL HISTORY : Myocardial infarction. Hypertension Cardiovascular disease. SURGICAL HISTORY : Cholecystectomy. Hysterectomy. Cardiac cath w/ stent. ENCOUNTER: Initial ACUITY: 1 month PAIN SCORE: 0/10 LOCATION: chest FINDINGS: PA and lateral views of the chest demonstrate left basilar density. Heart normal in size The cardiome diastinal contours are unremarkable. Osseous structures are intact. CONCLUSION: Left basilar density could be atelectasis or infiltrate. Shabbir Benjamin MD on October 25, 2017 at 14:06 Board Certified Radiologist. This report was verified electronically.
== END ==
LOC: HRSP 11:57
DX: I50.9 Heart failure, unspecified (principal); R06.00 Dyspnea, unspecified; E11.9 Type 2 diabetes mellitus without complications; R05 Cough
CPT/HCPCS: 71046; 94060; 94726; 94729

== ENCOUNTER 2018-07-01 02:43 | Inpatient (IN) ==
[2018-07-01] MEDS ORDERED: Labetalol HCl Inj 100 MG/20 ML Vial IV.PUSH ONE ×2 (05:11→06:08)
--- NOTE | 2018-07-01 05:19 | ED ---
HPI General Chief complaint: Hypertension Stated complaint: High Bp Time Seen by Provider: 07/01/18 05:08 Source: patient and family Mode of arrival: ambulatory Limitations: no limitations History of Present Illness HPI narrative: 82-year-old female presents to the emergency department by private transportation the care of her son for evaluation of elevated blood pressure. Patient states she has a long-standing history of high blood pressure and takes multiple antihypertensive medications. Patient is prescribed clonidine 0.2 mg 3 times daily. Patient reports each evening before taking her last dose of blood pressure medication she checks her blood pressure and then takes her clonidine. Patient noted her blood pressure to be very elevated at bedtime and went ahead and took her clonidine 0.3 mg tablet and then checked her blood pressure in 1 hour and it was still elevated so took an additional half tablet of clonidine rechecked her blood pressure 10 remained elevated waited another 2 hours and decided to come to the emergency room for evaluation patient denies any preceding or current headache visual disturbance confusion speech disturbance swallowing disturbance chest pain palpitations sweats nausea vomiting shortness of breath referred neck jaw back shoulder arm pain upper or lower extremity numbness tingling or weakness. Patient is also had no recent respiratory illness or febrile illness. Patient states she did eat some Greek food last evening but it was low sodium. Patient is noticed over the past 2-3 weeks and her blood pressure was intermittently elevated but typically not greater than 160 mmHg. Patient had no recent change to her medications no change in her activity and is unable to identify exacerbating or alleviating factors. Patient had no other concerns or complaints. Patient is diabetic and has been urinating frequently. Onset (ago): hour(s) Radiation: non-radiation Severity: moderate Quality: other (no pain) Relieving factors: none Exacerbating factors: none Associated symptoms: denies other symptoms Treatments prior to arrival: other (additional 1/2 dose clonidine) Related Data Home Medications Medication Instructions Recorded Confirmed amlodipine 5 mg PO DAILY 07/01/18 07/01/18 aspirin [Aspir-81] 81 mg PO DAILY 07/01/18 07/01/18 buspirone 30 mg PO ONCE 07/01/18 07/01/18 carvedilol [Coreg] 3.125 mg PO BID 07/01/18 07/01/18 clonidine HCl 0.1 mg PO TID 07/01/18 07/01/18 furosemide [Lasix] 20 mg PO DAILY 07/01/18 07/01/18 losartan 100 mg PO DAILY 07/01/18 07/01/18 metformin 750 mg PO BID 07/01/18 07/01/18 Allergies Allergy/AdvReac Type Severity Reaction Status Date / Time simvastatin Allergy Severe ARMS SWELL Unverified 07/01/18 02:46 Review of Systems ROS: all other systems reviewed are negative Constitutional Denies body ache(s), Denies chills, Denies excessive sweating and Denies fever(s ) Eyes Denies blurry vision and Denies diplopia ENT Denies vertigo, Denies dizziness and Denies headache(s) Cardiovascular Reports as per HPI, Denies chest pain, Denies diaphoresis, Denies syncope, Denies pedal edema, Denies lightheadedness and Denies dyspnea Respiratory Denies chest congestion and Denies dyspnea Gastrointestinal Denies abdominal pain, Denies belching, Denies nausea and Denies vomiting Genitourinary Reports urinary frequency and Denies dysuria Musculoskeletal Denies back pain, Denies muscle cramps and Denies muscle weakness Integumentary/Breasts Denies rash Neurologic Denies behavioral changes, Denies confusion, Denies vertigo, Denies headache(s) , Denies focal weakness, Denies loss of vision, Denies tingling, Denies paresthesias and Denies disequilibrium Psychiatric Denies anxiety and Denies depression Endocrine Denies fatigue Hematologic/Lymphatic Denies easy bruising PMFSH History History Provided By: Patient (Hypertension diabetes dyslipidemia myocardial infarction stent), Family Member and Medical Record Medical History Medical History Diabetes (Acute) Hypertension (Acute) Surgical History Surgical History Hx of heart artery stent (Acute) Social History Social History Second Hand Smoke Exposure: No Smoking Status: Never smoker How Often Do You Have a Drink Containing Alcohol: Never Recent Travel in [facility] within the Last 8 Weeks: No Recent Out of Country Travel within the Last 8 Weeks: No Immunization History Tetanus Immunization: Unsure Hx Influenza Vaccine This Season: No Exam Narrative Exam Narrative: GENERAL: Well-developed well-nourished female in no acute distress no respiratory distress SKIN: Focused skin assessment warm/dry. HEAD: Atraumatic. Normocephalic. EYES: Pupils equal and round. No scleral icterus. No injection or drainage. ENT: No nasal bleeding or discharge. Mucous membranes pink and moist. NECK: Trachea midline. No JVD. CARDIOVASCULAR: Regular rate and rhythm. No murmur appreciated. RESPIRATORY: No accessory muscle use. Clear to auscultation. Breath sounds equal bilaterally. GASTROINTESTINAL: Abdomen soft, non-tender, nondistended. Hepatic and splenic margins not palpable. MUSCULOSKELETAL: No obvious deformities. No clubbing. No cyanosis. No edema. NEUROLOGICAL: Awake and alert. No obvious cranial nerve deficits. Motor grossly within normal limits. Normal speech. PSYCHIATRIC: Appropriate mood and affect; insight and judgment normal. Course Initial Documented Vital Signs Temperature 98.0 F 07/01/18 02:47 Pulse Rate 106 H 07/01/18 02:47 Respiratory Rate 20 07/01/18 02:47 Blood Pressure 218/95 H 07/01/18 02:47 Pulse Oximetry 97 07/01/18 02:47 Last Documented Vital Signs Temperature 98.0 F 07/01/18 02:47 Pulse Rate 78 07/01/18 06:10 Respiratory Rate 15 07/01/18 06:10 Blood Pressure 207/88 H 07/01/18 06:10 Pulse Oximetry 98 07/01/18 06:10 Medical Decision Making [facility] Narrative Medical decision making narrative: 82-year-old female with multiple medical problems including hypertension presents to the emergency department for complaint of elevated blood pressure after taking her regimen of routine antihypertensive medications. Patient noted to have blood pressure 190/88. Blood pressure at home was 210/111. Patient states blood pressure has has not resolved elevation typically blood pressure systolic is 130 at maximum 160 but never greater than 160. Patient states blood pressures been elevated 5 hours. Patient did take an additional dose of medication for blood pressure elevation. Patient placed on cafeteria monitor continuous pulse oximetry IV access obtained for resulting EKG ordered along with chest x-ray patient has no focal neurologic findings no headache no change in speech swallowing vision no focal numbness tingling or weakness will defer CT brain noncontrast at this time At 6:25 AM CBC with automated differential and basic metabolic panel are found to be grossly within normal range except for renal insufficiency BUN and creatinine 26/1.45 respectively patient has history of stage III chronic kidney disease this is unchanged. Troponin I is pending. Urinalysis is abnormal and consistent with urinary tract infection with many bacteria and white blood cells cultures indicated patient administered first dose of antibiotic Rocephin 1 g IV piggyback while waiting for response to antihypertensive medications administered. At 6:40 AM patient identified to have elevated troponin I of 0.08; EKG shows no acute ST elevation; patient denies chest pain shortness of breath sweats nausea vomiting or referred neck jaw back shoulder arm pain. Patient has Nitropaste on chest wall will be administered aspirin 162 mg. Patient with chronic renal insufficiency. Patient will be admitted for serial cardiac enzymes. Call placed to medicine service for admission patient's primary care provider is Dr. Manas Flynn and her automobile accessories salesperson is Dr. Roa. Patient will be given her morning dose of clonidine 0.1 mg by mouth. Patient identified to have elevated troponin I of 0.08. Blood pressure still not adequately controlled, just not getting her dose of clonidine 0.1 mg. Patient's case called to and [facility]; at this point time patient will be admitted to CICU for serial cardiac enzymes ongoing control of blood pressure has received aspirin and has nitro place in place. Patient aware of elevated troponin I and continues to deny any chest pain, shortness of breath, sweats; no referred neck jaw back shoulder arm pain nausea vomiting or abdominal pain. Medical Screen Exam Complete: Yes Emergency Medical Condition: Yes Differential Diagnosis Differential Diagnosis: Uncontrolled hypertension hypertensive crisis [facility] dissection Medical Records Medical records reviewed: Yes I reviewed the patient's medical records. Lab Data Lab results reviewed: Yes I reviewed the patient's lab results. Result diagrams: 07/01/18 05:40 07/01/18 05:40 Lab Results 07/01/18 07/01/18 07/01/18 Range/Units 05:40 05:40 05:40 WBC 9.7 (4.0-11.0) th/mm3 RBC 3.89 L (4.00-5.30) mil/mm3 Hgb 11.4 L (11.6-15.3) gm/dL Hct 34.6 L (35.0-46.0) % MCV 88.8 (80.0-100.0) fL MCH 29.2 (27.0-34.0) pg MCHC 32.9 (32.0-36.0) % RDW 15.2 (11.6-17.2) % Plt Count 200 (150-450) th/mm3 MPV 7.7 (7.0-11.0) fL Neut % (Auto) 71.4 H (16.0-70.0) % Lymph % (Auto) 22.2 (9.0-44.0) % Leake % (Auto) 4.2 (0.0-8.0) % Eos % (Auto) 1.4 (0.0-4.0) % Baso % (Auto) 0.8 (0.0-2.0) % Neut # (Auto) 6.9 (1.8-7.7) th/mm3 Lymph # (Auto) 2.2 (1.0-4.8) th/mm3 Leake # (Auto) 0.4 (0.0-0.9) th/mm3 Eos # (Auto) 0.1 (0.0-0.4) th/mm3 Baso # (Auto) 0.1 (0.0-0.2) th/mm3 WBC Differential . Differential Comment Auto diff final PT 10.7 (9.8-11.6) sec INR 1.1 Ratio Sodium 144 (136-145) meq/L Potassium 4.6 (3.5-5.1) meq/L Chloride 111 H (98-107) meq/L Carbon Dioxide 21.8 (21.0-32.0) meq/L Anion Gap 11 (5-15) meq/L BUN 26 H (7-18) mg/dL Creatinine 1.45 H (0.50-1.00) mg/dL Estimated GFR 35 L (>89) mL/min Random Glucose 178 H (74-106) mg/dL Calcium 9.3 (8.5-10.1) mg/dL Magnesium 2.1 (1.5-2.5) mg/dL Total Bilirubin 0.4 (0.2-1.0) mg/dL AST 25 (15-37) U/L ALT 36 (10-53) U/L Alkaline Phosphatase 55 (45-117) U/L Total Creatine Kinase 84 (26-192) U/L Troponin I 0.08 H (0.02-0.05) ng/mL B-Natriuretic Peptide (0-100) pg/mL Total Protein 7.5 (6.4-8.2) g/dL Albumin 3.6 (3.4-5.0) g/dL TSH 2.280 (0.358-3.740) uIU/mL Urine Color (Yellw/Straw) Urine Clarity (Clear) Urine pH (5.0-8.5) Ur Specific Lysite (1.002-1.035) Urine Protein (Neg-Trace) mg/dL Urine Glucose (UA) (Negative) mg/dL Urine Ketones (Negative) mg/dL Urine Occult Blood (Negative) Urine Nitrate (Negative) Urine Bilirubin (Negative) Urine Urobilinogen (Less than 2) mg/dL Ur Leukocyte Esterase (Negative) Urine RBC (0-3) /hpf Urine WBC (0-5) /hpf Urine WBC Clumps (None) Ur Squamous Epith Cells (0-5) /hpf Urine Bacteria (None) /hpf Urine Mucus (Occasional) /lpf Micro UA Comment Ur Microscopic Review Urine Culture Comments 07/01/18 07/01/18 Range/Units 05:40 06:00 WBC (4.0-11.0) th/mm3 RBC (4.00-5.30) mil/mm3 Hgb (11.6-15.3) gm/dL Hct (35.0-46.0) % MCV (80.0-100.0) fL MCH (27.0-34.0) pg MCHC (32.0-36.0) % RDW (11.6-17.2) % Plt Count (150-450) th/mm3 MPV (7.0-11.0) fL Neut % (Auto) (16.0-70.0) % Lymph % (Auto) (9.0-44.0) % Leake % (Auto) (0.0-8.0) % Eos % (Auto) (0.0-4.0) % Baso % (Auto) (0.0-2.0) % Neut # (Auto) (1.8-7.7) th/mm3 Lymph # (Auto) (1.0-4.8) th/mm3 Leake # (Auto) (0.0-0.9) th/mm3 Eos # (Auto) (0.0-0.4) th/mm3 Baso # (Auto) (0.0-0.2) th/mm3 WBC Differential Differential Comment PT (9.8-11.6) sec INR Ratio Sodium (136-145) meq/L Potassium (3.5-5.1) meq/L Chloride (98-107) meq/L Carbon Dioxide (21.0-32.0) meq/L Anion Gap (5-15) meq/L BUN (7-18) mg/dL Creatinine (0.50-1.00) mg/dL Estimated GFR (>89) mL/min Random Glucose (74-106) mg/dL Calcium (8.5-10.1) mg/dL Magnesium (1.5-2.5) mg/dL Total Bilirubin (0.2-1.0) mg/dL AST (15-37) U/L ALT (10-53) U/L Alkaline Phosphatase (45-117) U/L Total Creatine Kinase (26-192) U/L Troponin I (0.02-0.05) ng/mL B-Natriuretic Peptide 64 (0-100) pg/mL Total Protein (6.4-8.2) g/dL Albumin (3.4-5.0) g/dL TSH (0.358-3.740) uIU/mL Urine Color Straw (Yellw/Straw) Urine Clarity Hazy H (Clear) Urine pH 6.0 (5.0-8.5) Ur Specific Lysite 1.005 (1.002-1.035) Urine Protein 500 or greater (Neg-Trace) mg/dL Urine Glucose (UA) Negative (Negative) mg/dL Urine Ketones Negative (Negative) mg/dL Urine Occult Blood Small H (Negative) Urine Nitrate Negative (Negative) Urine Bilirubin Negative (Negative) Urine Urobilinogen Less than 2 (Less than 2) mg/dL Ur Leukocyte Esterase Large H (Negative) Urine RBC 4 H (0-3) /hpf Urine WBC 142 H (0-5) /hpf Urine WBC Clumps Many H (None) Ur Squamous Epith Cells 2 (0-5) /hpf Urine Bacteria Few H (None) /hpf Urine Mucus Few H (Occasional) /lpf Micro UA Comment Culture indicated Ur Microscopic Review Not Reportable Urine Culture Comments Culture indicated Imaging Data Radiologist's impression: Chest X-Ray 07/01/18 05:08 CONCLUSION: Stable patchy interstitial changes similar to prior. ECG Data EKG Prior to Arrival: No Attestation: I personally reviewed and interpreted this ECG as follows: Prior ECG tracings: not available for review Interpretation: EKG: Normal sinus rhythm rate 65 left axis deviation no acute ST elevation injury pattern or ectopy noted poor R-wave progression anterolaterally for previous mi age-indeterminate Discharge Plan Discharge Disposition Patient Disposition: 30 Still Patient Discharge Condition Condition: Stable Discharge Details Diagnosis: Hypertension, uncontrolled, UTI (urinary tract infection), Renal insufficiency , Elevated troponin I level Physicians Team ED Provider: Myrtle Lei Primary Care Provider: UNKNOWN, Attending Provider: Daisy Antonio Status ED Status: Admitted Patient
[2018-07-01] MEDS ORDERED: Acetaminophen 325 MG Tablet PO ONE (05:47)
--- NOTE | 2018-07-01 05:49 | XR ---
EXAM DATE: 07/01/2018 5:35 AM EDT AGE/SEX: 82 years / Female INDICATIONS: Hypertensive episode. CLINICAL DATA: This is the patient's initial encounter. Patient reports that signs and symptoms have been present for 1 day and indicates a pain score of 0/10. MEDICAL/SURGICAL HISTORY: Hypertension. Chronic obstructive pulmonary disease. Cardiovascular disease. Cholecystectomy. Hysterectomy. Coronary artery stent. COMPARISON: [facility] [place], CHEST PA & LAT, 10/25/2017. . FINDINGS: Mild patchy interstitial prominence, similar to prior. No evidence of alveolar consolidation or pleur al effusion. Cardiac contours are stable and satisfactory. CONCLUSION: Stable patchy interstitial changes similar to prior. Electronically signed by: David Juarez MD 07/01/2018 5:48 AM EDT
[2018-07-01 06:02] LABS: Baso # (Auto) 0.1 th/mm3 (0.0-0.2); Baso % (Auto) 0.8 % (0.0-2.0); Eos # (Auto) 0.1 th/mm3 (0.0-0.4); Eos % (Auto) 1.4 % (0.0-4.0); Hematocrit 34.6 % (35.0-46.0); Hemoglobin 11.4 gm/dL (11.6-15.3); Lymph # (Auto) 2.2 th/mm3 (1.0-4.8); Lymph % (Auto) 22.2 % (9.0-44.0); Mean Corpuscular HGB Conc 32.9 % (32.0-36.0); Mean Corpuscular Hemoglobin 29.2 pg (27.0-34.0); Mean Corpuscular Volume 88.8 fL (80.0-100.0); Mean Platelet Volume 7.7 fL (7.0-11.0); Mono # (Auto) 0.4 th/mm3 (0.0-0.9); Mono % (Auto) 4.2 % (0.0-8.0); Neut # (Auto) 6.9 th/mm3 (1.8-7.7); Neut % (Auto) 71.4 % (16.0-70.0); Platelet Count 200 th/mm3 (150-450); Red Blood Count 3.89 mil/mm3 (4.00-5.30); Red Cell Distribution Width 15.2 % (11.6-17.2); White Blood Count 9.7 th/mm3 (4.0-11.0)
[2018-07-01 06:05] LABS: INR 1.1 Ratio; Prothrombin Time 10.7 sec (9.8-11.6)
[2018-07-01 06:17] LABS: Bacteria,Urine Few /hpf; Bilirubin,Urine Negative (Negative); Clarity,Urine Hazy (Clear); Color,Urine Straw (Yellw/Straw); Glucose,Urine (UA) Negative (Negative); Leukocyte Esterase,Urine Large (Negative); Mucus,Urine Few /lpf (Occasional); Nitrite,Urine Negative (Negative); Specific Gravity,Urine 1.005 (1.002-1.035); Squamous Epithelial Cell,Urine 2 /hpf (0-5)
[2018-07-01 06:18] LABS: Alanine Aminotransferase 36 U/L (10-53); Albumin 3.6 g/dL (3.4-5.0); Anion Gap 11 meq/L (5-15); Aspartate Aminotransferase 25 U/L (15-37); Blood Urea Nitrogen 26 mg/dL (7-18); Calcium 9.3 mg/dL (8.5-10.1); Carbon Dioxide 21.8 meq/L (21.0-32.0); Chloride 111 meq/L (98-107); Glomerular Filtration Rate 35 mL/min (>89); Glucose,Random 178 mg/dL (74-106); Magnesium 2.1 mg/dL (1.5-2.5); Potassium 4.6 meq/L (3.5-5.1); Sodium 144 meq/L (136-145)
[2018-07-01 06:29] LABS: Alkaline Phosphatase 55 U/L (45-117); Creatine Kinase 84 U/L (26-192); Total Protein 7.5 g/dL (6.4-8.2); Troponin I 0.08 ng/mL (0.02-0.05)
[2018-07-01] MEDS ORDERED: Acetaminophen 325 MG Tablet PO PRN (06:49)
[2018-07-01] MEDS ORDERED: Bisacodyl 10 MG Supp RECTAL PRN (06:49)
[2018-07-01] MEDS ORDERED: Dextrose 50% in Water 50 ML Vial IV.PUSH PRN (06:52)
[2018-07-01] MEDS ORDERED: BUSPIRONE 30 MG PO SCH (07:00)
[2018-07-01] MEDS ORDERED: hydrALAZINE 50 MG Tablet PO ONE (08:00)
[2018-07-01] MEDS: Insulin NovoLOG Aspart Correctional Sugar Inj SQ SCH ×4 (08:27→21:14)
--- NOTE | 2018-07-01 10:25 | P.HP ---
History of Present Illness Service: Hospitalist Primary Care Physician: UNKNOWN Chief Complaint: High blood pressure History of Present Illness: Ms. Vega is a pleasant 82 year old female with a history of CAD, hypertension, diabetes mellitus who presented to the emergency department on 07/01/2018 due to high blood pressure. Patient takes clonidine 0.3 mg 3 times a day in addition to other medications. Before she takes her medications she checks her blood pressure. Last evening, she checked her blood pressure and it was significantly elevated at around 200 range systolic. She took half of the clonidine tablet and repeated her blood pressure 2 hours later and her blood pressure was still elevated which prompted this hospital admission. Patient denies any chest pain, shortness of breath, fever or chills. She did not have any headache or blurry vision. She does report mild dysuria and increased frequency of urination. Denies any changes in bowel habits. UA shows possible UTI. PMH: CAD s/p stent placement in 2017, DM, HTN PSH: Hysterectomy, cholecystectomy Social Hx : Denies using tobacco, alcohol, illicit drugs. Family history: No family history of Alzheimer's or Parkinson's. - Diagnosis (1) Hypertensive urgency (2) UTI (urinary tract infection) Inpatient Certification: I certify that the inpatient services were ordered in accordance with Medicare regulations governing the order. This includes certification that hospital inpatient services are reasonable and necessary and in the case of services not specified as inpatient-only under 42 CFR 419.22(n), that they are appropriately provided as inpatient services in accordance to with the 2-midnight benchmark under 43 CFR 412.3(e) Estimated Total Length of Stay (Days): 2 Plans for Post Hospital Care: Not yet determined [facility] - History History Provided By: Patient (Hypertension diabetes dyslipidemia myocardial infarction stent), Family Member, Medical Record - Medical History Medical History: Medical History (Last Updated 07/01/18 @ 02:50 by Elsa Bhakta RN) Diabetes Hypertension - Surgical History Surgical History: Surgical History (Last Updated 07/01/18 @ 02:50 by Elsa Bhakta RN) Hx of heart artery stent - Tobacco History Second Hand Smoke Exposure: No Smoking Status: Never smoker - Alcohol History How Often Do You Have a Drink Containing Alcohol: Never - Travel History Recent Travel in the [place] Within the Last 8 Weeks: No Recent Travel Out of the Country Within the Last 8 Weeks: No - Immunization History Tetanus Immunization: Unsure Hx Influenza Vaccine This Season: No Medications and Allergies Active Medications: Active Medications Acetaminophen (Tylenol) 650 mg PO Q4H PRN PRN Reason: Temp > 100.4 Al Hydroxide/Mg Hydroxide (Milk Of Magnesia Liq) 30 ml PO Q12H PRN PRN Reason: Mild Constipation Amlodipine Besylate (Norvasc) 5 mg PO DAILY [facility] Aspirin (Ecotrin) 81 mg PO DAILY [facility] Aspirin (Aspirin Chew) 81 mg PO DAILY [facility] Bisacodyl (Dulcolax Supp) 10 mg RECTAL DAILY PRN PRN Reason: SEVERE CONSITIPATION Buspirone HCl (Buspar) 10 mg PO BID [facility] Carvedilol (Coreg) 3.125 mg PO BID [facility] Dextrose (D50w Vial) 50 ml IV.PUSH UNSCH PRN PRN Reason: PER HYPOGLYCEMIA PROTOCOL Glucagon (Glucagon Inj) 1 mg OTHER UNSCH PRN PRN Reason: for Hypoglycemia Protocol Ceftriaxone Sodium 1,000 mg/ (Sodium Chloride) 100 mls @ 200 mls/hr IV.SIG Q24H [facility] Insulin Aspart (Novolog Insulin Correctional Sugar Inj) 0 unit SQ ACHS NOEMI; Protocol Last Admin: 07/01/18 08:27 Dose: 1 unit Lactulose (Lactulose Liq) 30 ml PO DAILY PRN PRN Reason: SEVERE CONSITIPATION Ondansetron HCl (Zofran Inj) 4 mg IV.PUSH Q6H PRN PRN Reason: NAUSEA OR VOMITING Senna/Docusate Sodium (Ashley-Colace) 1 tab PO BID [facility] Sennosides (Senokot) 17.2 mg PO Q12H PRN PRN Reason: Moderate Constipation Sodium Chloride (Ns Flush) 2 ml IV.FLUSH PRN PRN PRN Reason: FLUSH AFTER USING IV ACCESS Allergies Allergy/AdvReac Type Severity Reaction Status Date / Time simvastatin Allergy Severe ARMS SWELL Unverified 07/01/18 02:46 Home Medications Medication Instructions Recorded Confirmed Type amlodipine 5 mg PO DAILY 07/01/18 07/01/18 History aspirin [Aspir-81] 81 mg PO DAILY 07/01/18 07/01/18 History buspirone 30 mg PO ONCE 07/01/18 07/01/18 History carvedilol [Coreg] 3.125 mg PO BID 07/01/18 07/01/18 History clonidine HCl 0.1 mg PO TID 07/01/18 07/01/18 History furosemide [Lasix] 20 mg PO DAILY 07/01/18 07/01/18 History losartan 100 mg PO DAILY 07/01/18 07/01/18 History metformin 750 mg PO BID 07/01/18 07/01/18 History Exam Vital signs: Vital Signs 07/01/18 02:47 07/01/18 03:08 07/01/18 05:30 Temperature 98.0 F Pulse Rate 106 H 80 58 L Respiratory Rate 20 15 15 Blood Pressure 218/95 H 190/88 H 183/88 H Pulse Oximetry 97 96 98 07/01/18 06:10 07/01/18 07:21 07/01/18 07:59 Temperature Pulse Rate 78 63 69 Respiratory Rate 15 17 Blood Pressure 207/88 H 194/87 H 181/80 H Pulse Oximetry 98 07/01/18 08:15 07/01/18 08:27 Temperature Pulse Rate 61 Respiratory Rate Blood Pressure 164/72 H 179/75 H Pulse Oximetry Intake & Output 06/30/18 07/01/18 07/01/18 18:59 06:59 18:59 Weight 74.389 kg Narrative: GENERAL: This is a well-nourished, well-developed patient, in no apparent distress. SKIN: No rashes, ecchymoses or lesions. Warm and dry. HEAD: Atraumatic. Normocephalic. No temporal or scalp tenderness. EYES: Pupils equal round and reactive. No injection or drainage. ENT: Nose without bleeding, purulent drainage or septal hematoma. Airway patent. NECK: Trachea midline. No lymphadenopathy. Supple, nontender, no meningeal signs. CARDIOVASCULAR: Regular rate and rhythm without murmurs, gallops, or rubs. No JVD. RESPIRATORY: Clear to auscultation. Breath sounds equal bilaterally. No wheezes , rales, or rhonchi. GASTROINTESTINAL: Abdomen soft, non-tender, nondistended. No guarding. MUSCULOSKELETAL: Extremities without clubbing, cyanosis, or edema. NEUROLOGICAL: Awake and alert. Cranial nerves II through XII intact. No focal neurological deficits. Normal speech. Results - Labs CBC & Chem 7: 07/01/18 05:40 07/01/18 05:40 Labs: Laboratory Results - last 24 hr 07/01/18 07/01/18 07/01/18 05:40 05:40 05:40 WBC 9.7 RBC 3.89 L Hgb 11.4 L Hct 34.6 L MCV 88.8 MCH 29.2 MCHC 32.9 RDW 15.2 Plt Count 200 MPV 7.7 Neut % (Auto) 71.4 H Lymph % (Auto) 22.2 [place] % (Auto) 4.2 Eos % (Auto) 1.4 Baso % (Auto) 0.8 Neut # (Auto) 6.9 Lymph # (Auto) 2.2 [place] # (Auto) 0.4 Eos # (Auto) 0.1 Baso # (Auto) 0.1 WBC Differential . Differential Comment Auto diff final PT 10.7 INR 1.1 Sodium 144 Potassium 4.6 Chloride 111 H Carbon Dioxide 21.8 Anion Gap 11 BUN 26 H Creatinine 1.45 H Estimated GFR 35 L POC Glucose Random Glucose 178 H Calcium 9.3 Magnesium 2.1 Total Bilirubin 0.4 AST 25 ALT 36 Alkaline Phosphatase 55 Total Creatine Kinase 84 Troponin I 0.08 H B-Natriuretic Peptide Total Protein 7.5 Albumin 3.6 TSH 2.280 Urine Color Urine Clarity Urine pH Ur Specific [place] Urine Protein Urine Glucose (UA) Urine Ketones Urine Occult Blood Urine Nitrate Urine Bilirubin Urine Urobilinogen Ur Leukocyte Esterase Urine RBC Urine WBC Urine WBC Clumps Ur Squamous Epith Cells Urine Bacteria Urine Mucus Micro UA Comment Ur Microscopic Review Urine Culture Comments 07/01/18 07/01/18 07/01/18 05:40 06:00 08:11 WBC RBC Hgb Hct MCV MCH MCHC RDW Plt Count MPV Neut % (Auto) Lymph % (Auto) [place] % (Auto) Eos % (Auto) Baso % (Auto) Neut # (Auto) Lymph # (Auto) [place] # (Auto) Eos # (Auto) Baso # (Auto) WBC Differential Differential Comment PT INR Sodium Potassium Chloride Carbon Dioxide Anion Gap BUN Creatinine Estimated GFR POC Glucose 174 H Random Glucose Calcium Magnesium Total Bilirubin AST ALT Alkaline Phosphatase Total Creatine Kinase Troponin I B-Natriuretic Peptide 64 Total Protein Albumin TSH Urine Color Straw Urine Clarity Hazy H Urine pH 6.0 Ur Specific [place] 1.005 Urine Protein 500 or greater Urine Glucose (UA) Negative Urine Ketones Negative Urine Occult Blood Small H Urine Nitrate Negative Urine Bilirubin Negative Urine Urobilinogen Less than 2 Ur Leukocyte Esterase Large H Urine RBC 4 H Urine WBC 142 H Urine WBC Clumps Many H Ur Squamous Epith Cells 2 Urine Bacteria Few H Urine Mucus Few H Micro UA Comment Culture indicated Ur Microscopic Review Not Reportable Urine Culture Comments Culture indicated - Imaging Impressions Chest X-Ray 07/01/18 05:08 CONCLUSION: Stable patchy interstitial changes similar to prior. Caprini VTE Risk Assessment Caprini VTE Risk Assessment: No/Low Risk (score <= 1) Caprini Risk Assessment Model: Point Value = 1 Point Value = 2 Point Value = 3 Point Value = 5 Age 41-60 Minor surgery BMI > 25 kg/m2 Swollen legs Varicose veins or History of unexplained or recurrent spontaneous Oral contraceptives or hormone replacement Sepsis (< 1 month) Serious lung disease, including pneumonia (< 1 month) Abnormal pulmonary function Acute myocardial infarction Congestive heart failure (< 1 month) History of inflammatory bowel disease Medical patient at bed rest Age 61-74 Arthroscopic surgery Major open surgery (> 45 min) Laparoscopic surgery (> 45 min) Malignancy Confined to bed (> 72 hours) Immobilizing plaster cast Central venous access Age >= 75 History of VTE Family history of VTE Factor V Leiden Prothrombin [id number] Lupus anticoagulant Anticardiolipin antibodies Elevated serum homocysteine Heparin-induced thrombocytopenia Other congenital or acquired thrombophilia Stroke (< 1 month) Elective arthroplasty Hip, pelvis, or leg fracture Acute spinal cord injury (< 1 month) Prophylaxis Regimen: Total Risk Factor Score Risk Level Prophylaxis Regimen 0-1 Low Early ambulation 2 Moderate Order ONE of the following: *Sequential Compression Device (SCD) *Heparin 5000 units SQ BID 3-4 Higher Order ONE of the following medications: *Heparin 5000 units SQ TID *Enoxaparin/Lovenox 40 mg SQ daily (WT < 150 kg, CrCl > 30 mL/min) *Enoxaparin/Lovenox 30 mg SQ daily (WT < 150 kg, CrCl > 10-29 mL/min) *Enoxaparin/Lovenox 30 mg SQ BID (WT < 150 kg, CrCl > 30 mL/min) AND/OR *Sequential Compression Device (SCD) 5 or more Highest Order ONE of the following medications: *Heparin 5000 units SQ TID (Preferred with Epidurals) *Enoxaparin/Lovenox 40 mg SQ daily (WT < 150 kg, CrCl > 30 mL/min) *Enoxaparin/Lovenox 30 mg SQ daily (WT < 150 kg, CrCl > 10-29 mL/min) *Enoxaparin/Lovenox 30 mg SQ BID (WT < 150 kg, CrCl > 30 mL/min) AND *Sequential Compression Device (SCD) Assessment and Plan - Assessment (1) Hypertensive urgency Code(s): I16.0 - Hypertensive urgency Status: Acute (2) UTI (urinary tract infection) Code(s): N39.0 - Urinary tract infection, site not specified Status: Acute - Plan Ms. Vega is a pleasant 82 year old female with a history of CAD, HTN, DM who presents to the ED due to persistent elevated hypertension. She also complains of dysuria, increased frequency. Hypertensive urgency -Continue amlodipine 5 mg daily. -Continue carvedilol 3.125 mg twice daily. -We will hold losartan due to acute kidney injury. -If needed short-acting captopril may be useful. -Will try to avoid Clonidine Urinary tract infection - Continue Ceftriaxone 1g Qday - Follow C&S Diabetes mellitus - Continue sliding scale insulin. Goal BG 140-180. - If needed, we will add Levemir CAD s/p stent placement in May 2017 - No acute issues - Continue Aspirin, BB. Patient is not on statin. Full code. SCDs.
[2018-07-01] MEDS: amLODIPine 5 MG Tablet PO SCH (12:46)
[2018-07-01] MEDS: Senna/Docusate Sodium 8.6/50 MG Tablet PO SCH ×2 (12:46→21:14)
--- NOTE | 2018-07-01 20:19 | ECG ---
Date Performed: 07/01/2018 Time Performed: 05:48:27 PTAGE: 82 years EKG: Sinus rhythm MARKED LEFT AXIS DEVIATION POSSIBLE RIGHT VENTRICULAR CONDUCTION DELAY LEFT VENTRICULAR HYPERTROPHY AND ST-T CHANGE POSSIBLE ANTEROLATERAL MYOCARDIAL INFARCTION ABNORMAL ECG PREVIOUS TRACING :05/18/17 @07.02 Compared to previous tracing, patient has developed a loss of a nterior R-wave forces suggesting a possible anterolateral Myocardial infarction. The nonspecific ante rior T-wave changes have improved. Clinical correlation is recommended to assess serial changes. DOCTOR: Kallie Ferrera Interpretating Date/Time 07/01/2018 20:17:52
[2018-07-01] MEDS: Melatonin 5 MG Tablet PO PRN (22:29)
[2018-07-02 05:20] LABS: Baso % (Auto) 0.6 % (0.0-2.0); Eos # (Auto) 0.2 th/mm3 (0.0-0.4); Eos % (Auto) 1.9 % (0.0-4.0); Hematocrit 32.3 % (35.0-46.0); Hemoglobin 10.8 gm/dL (11.6-15.3); Lymph # (Auto) 2.2 th/mm3 (1.0-4.8); Lymph % (Auto) 25.6 % (9.0-44.0); Mean Corpuscular HGB Conc 33.5 % (32.0-36.0); Mean Corpuscular Hemoglobin 29.2 pg (27.0-34.0); Mean Corpuscular Volume 87.2 fL (80.0-100.0); Mean Platelet Volume 7.6 fL (7.0-11.0); Mono # (Auto) 0.5 th/mm3 (0.0-0.9); Mono % (Auto) 5.3 % (0.0-8.0); Neut # (Auto) 5.7 th/mm3 (1.8-7.7); Neut % (Auto) 66.6 % (16.0-70.0); Platelet Count 182 th/mm3 (150-450); White Blood Count 8.5 th/mm3 (4.0-11.0)
[2018-07-02 05:54] LABS: Albumin 3.2 g/dL (3.4-5.0); Anion Gap 11 meq/L (5-15); Aspartate Aminotransferase 20 U/L (15-37); Blood Urea Nitrogen 20 mg/dL (7-18); Calcium 8.8 mg/dL (8.5-10.1); Chloride 109 meq/L (98-107); Glomerular Filtration Rate 37 mL/min (>89); Glucose,Random 148 mg/dL (74-106); Sodium 143 meq/L (136-145)
[2018-07-02 05:57] LABS: Alanine Aminotransferase 31 U/L (10-53); Alkaline Phosphatase 50 U/L (45-117); Total Protein 6.8 g/dL (6.4-8.2)
[2018-07-02] MEDS: Senna/Docusate Sodium 8.6/50 MG Tablet PO SCH ×2 (08:52→21:24)
[2018-07-02] MEDS: amLODIPine 5 MG Tablet PO SCH (08:52)
[2018-07-02] MEDS: Insulin NovoLOG Aspart Correctional Sugar Inj SQ SCH ×4 (08:53→21:24)
--- NOTE | 2018-07-02 13:29 | P.PN ---
Subjective Interval history: Follow up for hypertension and UTI. Patient is currently doing well. Ambulating in the room. No fever, chills. Physical Exam Vital signs: Vital Signs 07/01/18 14:03 07/01/18 15:00 07/01/18 16:00 Temperature 98.6 F Pulse Rate 58 L 62 62 Respiratory Rate 18 Blood Pressure 153/61 H Pulse Oximetry 96 07/01/18 17:00 07/01/18 19:00 07/01/18 20:00 Temperature 98.0 F Pulse Rate 66 63 68 Respiratory Rate 18 Blood Pressure 198/73 H Pulse Oximetry 98 07/01/18 21:00 07/01/18 22:00 07/01/18 23:00 Temperature Pulse Rate 62 58 L 57 L Respiratory Rate Blood Pressure Pulse Oximetry 07/01/18 23:27 07/02/18 00:00 07/02/18 01:00 Temperature 98.0 F Pulse Rate 66 58 L 60 Respiratory Rate 18 Blood Pressure 156/60 H Pulse Oximetry 97 07/02/18 02:00 07/02/18 03:00 07/02/18 04:00 Temperature 99 F Pulse Rate 68 54 L 98 H Respiratory Rate 18 Blood Pressure 161/63 H Pulse Oximetry 96 07/02/18 05:00 07/02/18 06:00 07/02/18 07:00 Temperature Pulse Rate 68 61 69 Respiratory Rate Blood Pressure Pulse Oximetry 07/02/18 08:00 07/02/18 09:00 07/02/18 10:00 Temperature 98.7 F Pulse Rate 69 63 56 L Respiratory Rate 18 Blood Pressure 208/76 H Pulse Oximetry 94 L 07/02/18 11:00 07/02/18 11:31 07/02/18 12:00 Temperature 97.4 F L 97.4 F L Pulse Rate 56 L 69 69 Respiratory Rate 18 18 Blood Pressure 208/76 H 196/75 H Pulse Oximetry 95 94 L Intake & Output 07/01/18 07/02/18 07/02/18 18:59 06:59 18:59 Intake Total 1320 / 1320 720 / 720 220 / 220 Output Total 650 / 650 1800 / 1800 350 / 350 Balance 670 / 670 -1080 / -1080 -130 / -130 Weight 79 kg Intake: IV 100 / 100 Rocephin Inj 1,000 MG In NS Inj 100 / 100 100 ML @ 200 mls/hr IV.SIG Q24H NOEMI Rx#:[id number] Oral 1320 / 1320 720 / 720 120 / 120 Output: Urine 650 / 650 1800 / 1800 350 / 350 Other: Date of Last Bowel Movement 07/01/18 # Bowel Movements 1 Narrative: GENERAL: Alert, Oriented x 3, NAD. SKIN: Warm and dry. HEAD: Normocephalic. EYES: No scleral icterus. No injection or drainage. NECK: Supple, trachea midline. No JVD or lymphadenopathy. CARDIOVASCULAR: Regular rate and rhythm without murmurs, gallops, or rubs. RESPIRATORY: Breath sounds equal bilaterally. No accessory muscle use. GASTROINTESTINAL: Abdomen soft, non-tender, nondistended. MUSCULOSKELETAL: No cyanosis, or edema. BACK: Nontender without obvious deformity. No CVA tenderness. Results - Labs CBC & Chem 7: 07/02/18 04:45 07/02/18 04:45 Laboratory Results - last 24 hr 07/01/18 07/01/18 07/01/18 06:00 16:48 19:10 WBC RBC Hgb Hct MCV MCH MCHC RDW Plt Count MPV Neut % (Auto) Lymph % (Auto) [place] % (Auto) Eos % (Auto) Baso % (Auto) Neut # (Auto) Lymph # (Auto) [place] # (Auto) Eos # (Auto) Baso # (Auto) WBC Differential Differential Comment Sodium Potassium Chloride Carbon Dioxide Anion Gap BUN Creatinine Estimated GFR POC Glucose 179 H Random Glucose Calcium Total Bilirubin AST ALT Alkaline Phosphatase Troponin I 0.06 H Total Protein Albumin Urine Color Straw Urine Clarity Hazy H Urine pH 6.0 Ur Specific [place] 1.005 Urine Protein 500 or greater Urine Glucose (UA) Negative Urine Ketones Negative Urine Occult Blood Small H Urine Nitrate Negative Urine Bilirubin Negative Urine Urobilinogen Less than 2 Ur Leukocyte Esterase Large H Urine RBC 4 H Urine WBC 142 H Urine WBC Clumps Many H Ur Squamous Epith Cells 2 Urine Bacteria Few H Urine Mucus Few H Micro UA Comment Culture indicated Urine Culture Comments Culture indicated 07/01/18 07/02/18 07/02/18 21:13 04:45 04:45 WBC 8.5 RBC 3.70 L Hgb 10.8 L Hct 32.3 L MCV 87.2 MCH 29.2 MCHC 33.5 RDW 15.0 Plt Count 182 MPV 7.6 Neut % (Auto) 66.6 Lymph % (Auto) 25.6 [place] % (Auto) 5.3 Eos % (Auto) 1.9 Baso % (Auto) 0.6 Neut # (Auto) 5.7 Lymph # (Auto) 2.2 [place] # (Auto) 0.5 Eos # (Auto) 0.2 Baso # (Auto) 0.0 WBC Differential . Differential Comment Auto diff final Sodium 143 Potassium 4.0 Chloride 109 H Carbon Dioxide 23.0 Anion Gap 11 BUN 20 H Creatinine 1.36 H Estimated GFR 37 L POC Glucose 135 H Random Glucose 148 H Calcium 8.8 Total Bilirubin 0.3 AST 20 ALT 31 Alkaline Phosphatase 50 Troponin I Total Protein 6.8 D Albumin 3.2 L Urine Color Urine Clarity Urine pH Ur Specific [place] Urine Protein Urine Glucose (UA) Urine Ketones Urine Occult Blood Urine Nitrate Urine Bilirubin Urine Urobilinogen Ur Leukocyte Esterase Urine RBC Urine WBC Urine WBC Clumps Ur Squamous Epith Cells Urine Bacteria Urine Mucus Micro UA Comment Urine Culture Comments 07/02/18 07/02/18 08:15 12:20 WBC RBC Hgb Hct MCV MCH MCHC RDW Plt Count MPV Neut % (Auto) Lymph % (Auto) [place] % (Auto) Eos % (Auto) Baso % (Auto) Neut # (Auto) Lymph # (Auto) [place] # (Auto) Eos # (Auto) Baso # (Auto) WBC Differential Differential Comment Sodium Potassium Chloride Carbon Dioxide Anion Gap BUN Creatinine Estimated GFR POC Glucose 150 H 156 H Random Glucose Calcium Total Bilirubin AST ALT Alkaline Phosphatase Troponin I Total Protein Albumin Urine Color Urine Clarity Urine pH Ur Specific [place] Urine Protein Urine Glucose (UA) Urine Ketones Urine Occult Blood Urine Nitrate Urine Bilirubin Urine Urobilinogen Ur Leukocyte Esterase Urine RBC Urine WBC Urine WBC Clumps Ur Squamous Epith Cells Urine Bacteria Urine Mucus Micro UA Comment Urine Culture Comments Microbiology 07/01/18 06:00 Clean Catch Urine Urine Culture - Preliminary gram negative rods Assessment and Plan - Assessment (1) Hypertensive urgency Code(s): I16.0 - Hypertensive urgency Status: Acute (2) UTI (urinary tract infection) Code(s): N39.0 - Urinary tract infection, site not specified Status: Acute - Plan Ms. Vega is a pleasant 82 year old female with a history of CAD, HTN, DM who presents to the ED due to persistent elevated hypertension. She also complains of dysuria, increased frequency. Hypertensive urgency -Continue amlodipine 5 mg daily. -Continue carvedilol 3.125 mg twice daily. -D/C losartan and start Captopril 25mg BID. -Clonidine 0.1mg Q6hrs PRN but we will try to wean it off. Urinary tract infection - Continue Ceftriaxone 1g Qday - Culture is growing GNR. Diabetes mellitus - Continue sliding scale insulin. Goal BG 140-180. CAD s/p stent placement in May 2017 - No acute issues - Continue Aspirin, BB. Patient is not on statin. Full code. SCDs. Probable discharge in the afternoon on 07/03/2018.
[2018-07-02] MEDS: Melatonin 5 MG Tablet PO PRN (22:59)
[2018-07-03] MEDS ORDERED: hydrALAZINE 25 MG Tablet PO ONE ×2 (01:11→03:58)
[2018-07-03] MEDS: Senna/Docusate Sodium 8.6/50 MG Tablet PO SCH ×2 (09:15→20:58)
[2018-07-03] MEDS: Insulin NovoLOG Aspart Correctional Sugar Inj SQ SCH ×4 (09:21→20:58)
--- NOTE | 2018-07-03 16:23 | P.PN ---
Subjective Interval history: Follow up for hypertension and UTI. Patient is currently doing well. Her BP has been elevated, however. No CP, SOB, fever, chills. Physical Exam Vital signs: Vital Signs 07/02/18 17:00 07/02/18 18:00 07/02/18 19:00 Temperature Pulse Rate 68 61 61 Respiratory Rate Blood Pressure Pulse Oximetry 07/02/18 20:00 07/02/18 21:00 07/02/18 22:00 Temperature 97.7 F Pulse Rate 66 68 64 Respiratory Rate 16 Blood Pressure 206/73 H Pulse Oximetry 97 07/02/18 23:00 07/03/18 00:00 07/03/18 00:37 Temperature 97.8 F Pulse Rate 65 64 Respiratory Rate 16 Blood Pressure 207/74 H 211/82 H Pulse Oximetry 98 07/03/18 01:00 07/03/18 01:18 07/03/18 02:00 Temperature Pulse Rate 78 56 L Respiratory Rate Blood Pressure 212/82 H 196/74 H Pulse Oximetry 07/03/18 03:00 07/03/18 04:00 07/03/18 04:30 Temperature 98.9 F Pulse Rate 67 59 L Respiratory Rate 16 Blood Pressure 198/76 H 177/74 H Pulse Oximetry 96 07/03/18 05:00 07/03/18 06:00 07/03/18 07:00 Temperature 98.1 F Pulse Rate 56 L 61 62 Respiratory Rate 16 Blood Pressure 191/77 H Pulse Oximetry 99 07/03/18 08:00 07/03/18 09:00 07/03/18 10:00 Temperature Pulse Rate 57 L 62 57 L Respiratory Rate Blood Pressure Pulse Oximetry 07/03/18 11:00 07/03/18 12:00 07/03/18 13:00 Temperature 97.8 F Pulse Rate 51 L 55 L 67 Respiratory Rate 18 Blood Pressure 173/60 H Pulse Oximetry 98 07/03/18 14:00 07/03/18 15:00 Temperature Pulse Rate 77 72 Respiratory Rate Blood Pressure Pulse Oximetry Intake & Output 07/02/18 07/03/18 07/03/18 18:59 06:59 18:59 Intake Total 860 / 860 720 / 720 200 / 200 Output Total 1000 / 1000 2050 / 2050 200 / 200 Balance -140 / -140 -1330 / -1330 0 / 0 Weight 75 kg Intake: IV 100 / 100 200 / 200 Rocephin Inj 1,000 MG In NS Inj 100 / 100 100 / 100 100 ML @ 200 mls/hr IV.SIG Q24H NOEMI Rx#:[id number] Oral 760 / 760 720 / 720 Output: Urine 1000 / 1000 2049 / 2049 200 / 200 Other: # Voids 1 Date of Last Bowel Movement 07/02/18 07/02/18 # Bowel Movements 1 1 Narrative: GENERAL: Alert, Oriented x 3, NAD. SKIN: Warm and dry. HEAD: Normocephalic. EYES: No scleral icterus. No injection or drainage. NECK: Supple, trachea midline. No JVD or lymphadenopathy. CARDIOVASCULAR: Regular rate and rhythm without murmurs, gallops, or rubs. RESPIRATORY: Breath sounds equal bilaterally. No accessory muscle use. GASTROINTESTINAL: Abdomen soft, non-tender, nondistended. MUSCULOSKELETAL: No cyanosis, or edema. BACK: Nontender without obvious deformity. No CVA tenderness. Results - Labs CBC & Chem 7: 07/02/18 04:45 07/02/18 04:45 Laboratory Results - last 24 hr 07/02/18 07/02/18 07/03/18 16:45 21:21 07:43 POC Glucose 172 H 137 H 150 H 07/03/18 11:01 POC Glucose 150 H Microbiology 07/01/18 06:00 Clean Catch Urine Urine Culture - Preliminary gram negative rods Assessment and Plan - Assessment (1) Hypertensive urgency Code(s): I16.0 - Hypertensive urgency Status: Acute (2) UTI (urinary tract infection) Code(s): N39.0 - Urinary tract infection, site not specified Status: Acute - Plan Ms. Vega is a pleasant 82 year old female with a history of CAD, HTN, DM who presents to the ED due to persistent elevated hypertension. She also complains of dysuria, increased frequency. Hypertensive urgency -Continue Captopril 25mg BID, Carvedilol 3.125mg Qday. -Will switch Amlodipine to Nifedipine 60mg Qday. -Clonidine 0.2mg Patch Q7 days. -Start Torsemide 10mg Qday as well. -Will check Plasma metanephrines. Urinary tract infection - Continue Ceftriaxone 1g Qday - Culture is growing GNR. Diabetes mellitus - Continue sliding scale insulin. Goal BG 140-180. CAD s/p stent placement in May 2017 - No acute issues - Continue Aspirin, BB. Patient is not on statin. Full code. SCDs.
[2018-07-03] MEDS: Melatonin 5 MG Tablet PO PRN (22:47)
[2018-07-04] MEDS ORDERED: Aluminum/Magnesium/Simethacone Susp 30 ML UDC PO ONE ×2 (02:59→08:53)
[2018-07-04] MEDS: Insulin NovoLOG Aspart Correctional Sugar Inj SQ SCH (08:51)
[2018-07-04] MEDS: Senna/Docusate Sodium 8.6/50 MG Tablet PO SCH (08:53)
[2018-07-04] MEDS ORDERED: Ciprofloxacin 250 MG Tablet PO SCH (09:00)
--- NOTE | 2018-07-04 09:31 | P.DS ---
Date of admission: 07/01/18 06:56 Primary care physician: UNKNOWN Brief History from admission: Ms. Vega is a pleasant 82 year old female with a history of CAD, hypertension, diabetes mellitus who presented to the emergency department on 07/01/2018 due to high blood pressure. Patient takes clonidine 0.3 mg 3 times a day in addition to other medications. Before she takes her medications she checks her blood pressure. Last evening, she checked her blood pressure and it was significantly elevated at around 200 range systolic. She took half of the clonidine tablet and repeated her blood pressure 2 hours later and her blood pressure was still elevated which prompted this hospital admission. Patient denies any chest pain, shortness of breath, fever or chills. She did not have any headache or blurry vision. She does report mild dysuria and increased frequency of urination. Denies any changes in bowel habits. UA shows possible UTI. PMH: CAD s/p stent placement in 2017, DM, HTN PSH: Hysterectomy, cholecystectomy Social Hx : Denies using tobacco, alcohol, illicit drugs. Family history: No family history of Alzheimer's or Parkinson's. DS: Diagnosis - Discharge Diagnosis (1) Hypertensive urgency Status: Acute (2) UTI (urinary tract infection) Status: Acute DS: Medications - Discharge Medications Prescriptions: captopril 25 mg PO BID #60 tab ciprofloxacin HCl 250 mg PO Q12HR #6 tab clonidine [[id number]] 1 patch TRANSDERMAL Q7D #4 each nifedipine 60 mg PO DAILY #30 tab ranitidine HCl [Zantac 75] 75 mg PO BID PRN #30 tab PRN Reason: Acid Reflux torsemide 10 mg PO BID@0900,1800 #60 tab DS: Summary Hospital Course: Ms. Vega is a pleasant 82 year old female with a history of CAD, HTN, DM who presents to the ED due to persistent elevated hypertension. She also complains of dysuria, increased frequency. Hypertensive urgency -Continue Captopril 25mg BID, Carvedilol 3.125mg Qday. -Nifedipine 60mg Qday. -Clonidine 0.2mg Patch Q7 days. -Torsemide 10mg Qday as well. -Will give referral to see Instrument Technician Dr. Srivastava upon discharge regarding CKD as well as resistant HTN. Urinary tract infection - Continue Ceftriaxone 1g Qday - Culture is growing GNR, pansensitive. Will give 3 days of Cipro. Diabetes mellitus - Continue sliding scale insulin. Goal BG 140-180. Continue Metformin upon discharge. CAD s/p stent placement in May 2017 - No acute issues - Continue Aspirin, BB. Patient is not on statin. - Time Spent with Patient Total time spent providing and/or coordinating discharge services: Greater than 30 minutes - Quality: VTE Deep Vein Thrombosis/Pulmonary Embolism Present on Admission: No Exam Vital signs: Vital Signs 07/03/18 10:00 07/03/18 11:00 07/03/18 12:00 Temperature 97.8 F Pulse Rate 57 L 51 L 55 L Respiratory Rate 18 Blood Pressure 173/60 H Pulse Oximetry 98 07/03/18 13:00 07/03/18 14:00 07/03/18 15:00 Temperature 99.1 F Pulse Rate 67 77 71 Respiratory Rate 18 Blood Pressure 151/65 H Pulse Oximetry 99 07/03/18 16:00 07/03/18 17:00 07/03/18 18:00 Temperature Pulse Rate 90 99 H 73 Respiratory Rate Blood Pressure Pulse Oximetry 07/03/18 19:00 07/03/18 20:00 07/03/18 21:00 Temperature 98.4 F Pulse Rate 71 72 76 Respiratory Rate 16 Blood Pressure 169/71 H Pulse Oximetry 96 07/03/18 22:00 07/03/18 23:00 07/04/18 00:00 Temperature 98.7 F Pulse Rate 90 77 79 Respiratory Rate 16 Blood Pressure 162/71 H Pulse Oximetry 95 07/04/18 01:00 07/04/18 02:00 07/04/18 03:00 Temperature 98.7 F Pulse Rate 75 102 H 98 H Respiratory Rate 16 Blood Pressure 162/69 H Pulse Oximetry 95 07/04/18 04:00 07/04/18 05:00 07/04/18 06:00 Temperature Pulse Rate 80 81 82 Respiratory Rate Blood Pressure Pulse Oximetry Intake & Output 07/03/18 07/04/18 07/04/18 18:59 06:59 18:59 Intake Total 700 / 700 1949 / 1947 Output Total 1100 / 1100 1949 / 1947 Balance -400 / -400 0 / 0 Weight 76 kg Intake: IV 200 / 200 Rocephin Inj 1,000 MG In NS Inj 100 / 100 100 ML @ 200 mls/hr IV.SIG Q24H [facility] Rx#:[id number] Oral 500 / 500 1949 Output: Urine 1100 / 1100 1949 Other: # Voids 1 Date of Last Bowel Movement 07/02/18 Narrative: GENERAL: Alert, NAD. SKIN: Warm and dry. HEAD: Normocephalic. EYES: No scleral icterus. No injection or drainage. NECK: Supple, trachea midline. No JVD or lymphadenopathy. CARDIOVASCULAR: Regular rate and rhythm without murmurs, gallops, or rubs. RESPIRATORY: Breath sounds equal bilaterally. No accessory muscle use. GASTROINTESTINAL: Abdomen soft, non-tender, nondistended. MUSCULOSKELETAL: No cyanosis, or edema. BACK: Nontender without obvious deformity. No CVA tenderness. Results Procedures completed during hospitalization: None. Labs on day of discharge: Labs from last 24 hours 07/04/18 07/03/18 07/03/18 07:33 19:40 16:29 POC Glucose 148 H 179 H 193 H 07/03/18 11:01 POC Glucose 150 H - Impressions ITS Impressions Chest X-Ray 07/01/18 05:08 CONCLUSION: Stable patchy interstitial changes similar to prior. Discharge Plan - Discharge Disposition Patient Disposition: Discharge Home - Discharge Condition Condition: Stable - Discharge Order Discharge Orders: Discharge Order (Routine); Ordered 07/04/18 Ordered By: Laron Fry - Discharge Details Anticipated Discharge Date: 07/04/18 - Physicians Team Primary Care Provider: UNKNOWN, Attending Provider: Laron Fry Other Providers: [employer],Insurance
[2018-07-04 09:34] VITALS: BP 173/76; RESP 18; TEMP 98.5; O2SAT 97
[2018-07-04 09:37] VITALS: PULSE 74
== END 2018-07-04 10:58 | disposition home or self-care (01) ==
LOC: NEPC 02:43 → NEDA 06:56 → HCIS 08:55
PROVIDERS: ADMIT Hospitalist; ATTEND Hospitalist

== ENCOUNTER 2018-07-04 19:22 | Inpatient (IN) ==
--- NOTE | 2018-07-04 19:35 | ED ---
HPI General Chief Complaint: Arrhythmia / Palpitations Stated Complaint: Medical Time Seen by Provider: 07/04/18 19:29 Source: patient and EMS Mode of arrival: EMS Limitations: no limitations History of Present Illness HPI Narrative: While the patient was at a restaurant the patient developed some lightheadedness and dizziness.....fire rescue noted patient while symptomatic had a rate of 30's....ems arrived patient's sx resolved and up to 60' s....however en route patient again stated " i feel dizzy" and hr found to be in 30's.....given glucagon 0.5mg and raised it to 60's. MD complaint: dizziness and lightheadedness Onset (ago): minute(s) Timing: sudden onset Description: lightheadedness History of similar episodes: No History of trauma: No Severity: moderate Relieving factors: nothing Exacerbating factors: nothing Associated symptoms: denies other symptoms Related Data Home Medications Medication Instructions Recorded Confirmed aspirin [Aspir-81] 81 mg PO DAILY 07/01/18 07/01/18 buspirone 30 mg PO ONCE 07/01/18 07/01/18 carvedilol [Coreg] 3.125 mg PO BID 07/01/18 07/01/18 metformin 750 mg PO BID 07/01/18 07/01/18 Previous Rx's Medication Instructions Recorded captopril 25 mg PO BID #60 tab 07/04/18 nifedipine 60 mg PO DAILY #30 tab 07/04/18 ranitidine HCl [Zantac 75] 75 mg PO BID PRN #30 tab 07/04/18 torsemide 10 mg PO BID@0900,1800 #60 tab 07/04/18 isosorbide dinitrate 30 mg PO Q8H #90 tab 07/09/18 Allergies Allergy/AdvReac Type Severity Reaction Status Date / Time simvastatin Allergy Severe ARMS SWELL Verified 07/03/18 14:58 PMFSH Family History Family History Father CAD (coronary artery disease) Social History Social History Substance History: No History of Abuse Second Hand Smoke Exposure: Yes () Smoking Status: Never smoker How Often Do You Have a Drink Containing Alcohol: Monthly or less Recent Travel in [place] within the Last 8 Weeks: No Recent Out of Country Travel within the Last 8 Weeks: No Exam Narrative Exam Narrative: GENERAL: Well-nourished, well-developed patient in no apparent distress. SKIN: Warm and dry. HEAD: Atraumatic. Normocephalic. EYES: Pupils equal and round. No scleral icterus. No injection or drainage. ENT: No nasal bleeding or discharge. Mucous membranes pink and moist. NECK: Trachea midline. No JVD. CARDIOVASCULAR: Regular rate and rhythm. no rubs or gallops RESPIRATORY: No accessory muscle use. Clear to auscultation. Breath sounds equal bilaterally. GASTROINTESTINAL: Abdomen soft, non-tender, nondistended. No rebound or guarding MUSCULOSKELETAL: Extremities without clubbing, cyanosis, or edema. No obvious deformities. NEUROLOGICAL: Awake and alert. No obvious cranial nerve deficits. Motor grossly within normal limits. Five out of 5 muscle strength in the arms and legs. Normal speech. PSYCHIATRIC: Appropriate mood and affect; insight and judgment normal. Course Initial Documented Vital Signs Temperature 98.4 F 07/04/18 19:25 Pulse Rate 61 07/04/18 19:25 Respiratory Rate 18 07/04/18 19:25 Blood Pressure 151/63 H 07/04/18 19:25 Pulse Oximetry 98 07/04/18 19:25 Last Documented Vital Signs Temperature 98.8 F 07/09/18 16:00 Pulse Rate 91 H 07/09/18 16:00 Respiratory Rate 21 07/09/18 16:00 Blood Pressure 171/75 H 07/09/18 16:00 Pulse Oximetry 97 07/09/18 09:01 Critical Care Time Critical Care Time: Yes Total Critical Care Time: 30 Attestation: Aggregate critical care time was 30 minutes. Time to perform other separately billable procedures was not included in the critical care time. My time did not include minutes spent treating any other patients simultaneously or on activities that did not directly contribute to the patient's treatment. The services I provided to this patient were to treat and/or prevent clinically significant deterioration that could result in: [Bradycardia leading into asystole and -] I provided critical care services requiring my management, as noted below: Chart data review, documentation time, medication orders and management, vital sign assessments/reviewing monitor data, ordering and reviewing lab tests, ordering and interpreting/reviewing x-rays and diagnostic studies, care of the patient and discussion of the patient with the admitting physicians. 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 While in the emergency department the patient also had episodes of atrial non-conductivity where it appear like she would go into asystole and then quickly started to go back up we have printed form showing that. The patient did respond well to atropine limits currently tachycardic in the 100s. Stable blood pressure CBC shows 11.6 on the WBC no anemia no left shift and normal platelet count Coagulation profile is within normal limits Electrolytes are all within normal limits, exception GFR of 25 creatinine 1.9 random glucose 170, liver functions within normal limits first set of CK-MB negative, troponin elevated at 0.08 Medical Screen Exam Complete: Yes Emergency Medical Condition: Yes Medical Records Medical records reviewed: Yes I reviewed the patient's medical records. Upon review the patient was admitted on July 01 and discharged on the in the morning. It appears that the patient has coronary disease status post stent placement in 2016, diabetes hypertension previous hysterectomy cholecystectomy. It appears that the patient was admitted last on July 01 with uncontrolled hypertension and she was found to have a UTI as well.... From evaluation the patient previously was on captopril clonidine nifedipine and torsemide for blood pressure it does appear that the patient was given additional medicine carvedilol 3.125 twice daily to go home on. The patient was also given Cipro for UTI. It is a possibility that the bradycardia may be secondary to QT prolongation from Cipro as well as bradycardia secondary to beta-faustino and calcium channel faustino Lab Data Lab results reviewed: Yes I reviewed the patient's lab results. Result diagrams: 07/09/18 06:03 07/09/18 06:03 Lab Results 07/04/18 07/04/18 07/04/18 Range/Units 19:40 19:40 19:40 WBC 11.6 H (4.0-11.0) th/mm3 RBC 4.33 (4.00-5.30) mil/mm3 Hgb 12.5 (11.6-15.3) gm/dL Hct 37.8 (35.0-46.0) % MCV 87.2 (80.0-100.0) fL MCH 29.0 (27.0-34.0) pg MCHC 33.2 (32.0-36.0) % RDW 15.4 (11.6-17.2) % Plt Count 240 D (150-450) th/mm3 MPV 7.9 (7.0-11.0) fL Neut % (Auto) 71.1 H (16.0-70.0) % Lymph % (Auto) 20.6 (9.0-44.0) % [place] % (Auto) 5.6 (0.0-8.0) % Eos % (Auto) 1.5 (0.0-4.0) % Baso % (Auto) 1.2 (0.0-2.0) % Neut # (Auto) 8.3 H (1.8-7.7) th/mm3 Lymph # (Auto) 2.4 (1.0-4.8) th/mm3 [place] # (Auto) 0.6 (0.0-0.9) th/mm3 Eos # (Auto) 0.2 (0.0-0.4) th/mm3 Baso # (Auto) 0.1 (0.0-0.2) th/mm3 WBC Differential . Differential Comment Auto diff final PT 10.7 (9.8-11.6) sec INR 1.1 Ratio APTT 23.6 L (24.3-30.1) sec Sodium 139 (136-145) meq/L Potassium 4.6 (3.5-5.1) meq/L Chloride 106 (98-107) meq/L Carbon Dioxide 18.9 L (21.0-32.0) meq/L Anion Gap 14 (5-15) meq/L BUN 28 H (7-18) mg/dL Creatinine 1.90 H (0.50-1.00) mg/dL Estimated GFR 25 L (>89) mL/min POC Glucose (68-110) mg/dl Random Glucose 170 H (74-106) mg/dL Calcium 9.1 (8.5-10.1) mg/dL Phosphorus (2.5-4.9) mg/dL Magnesium (1.5-2.5) mg/dL Total Bilirubin 0.5 (0.2-1.0) mg/dL AST 31 (15-37) U/L ALT 42 (10-53) U/L Alkaline Phosphatase 62 (45-117) U/L Total Creatine Kinase 126 (26-192) U/L CK-MB (CK-2) 1.3 (0.5-3.6) ng/mL Troponin I 0.08 H (0.02-0.05) ng/mL B-Natriuretic Peptide (0-100) pg/mL Total Protein 7.5 D (6.4-8.2) g/dL Albumin 3.5 (3.4-5.0) g/dL Lipase 139 (73-393) U/L Urine Color (Yellw/Straw) Urine Clarity (Clear) Urine pH (5.0-8.5) Ur Specific [place] (1.002-1.035) Urine Protein (Neg-Trace) mg/dL Urine Glucose (UA) (Negative) mg/dL Urine Ketones (Negative) mg/dL Urine Occult Blood (Negative) Urine Nitrate (Negative) Urine Bilirubin (Negative) Urine Urobilinogen (Less than 2) mg/dL Ur Leukocyte Esterase (Negative) Urine WBC (0-5) /hpf Ur Squamous Epith Cells (0-5) /hpf Hyaline Casts (0-3) /lpf Micro UA Comment Ur Microscopic Review Urine Culture Comments Nasal Screen MRSA (PCR) (Negative) 07/04/18 07/04/18 07/04/18 Range/Units 19:40 19:40 19:40 WBC (4.0-11.0) th/mm3 RBC (4.00-5.30) mil/mm3 Hgb (11.6-15.3) gm/dL Hct (35.0-46.0) % MCV (80.0-100.0) fL MCH (27.0-34.0) pg MCHC (32.0-36.0) % RDW (11.6-17.2) % Plt Count (150-450) th/mm3 MPV (7.0-11.0) fL Neut % (Auto) (16.0-70.0) % Lymph % (Auto) (9.0-44.0) % [place] % (Auto) (0.0-8.0) % Eos % (Auto) (0.0-4.0) % Baso % (Auto) (0.0-2.0) % Neut # (Auto) (1.8-7.7) th/mm3 Lymph # (Auto) (1.0-4.8) th/mm3 [place] # (Auto) (0.0-0.9) th/mm3 Eos # (Auto) (0.0-0.4) th/mm3 Baso # (Auto) (0.0-0.2) th/mm3 WBC Differential Differential Comment PT (9.8-11.6) sec INR Ratio APTT (24.3-30.1) sec Sodium (136-145) meq/L Potassium (3.5-5.1) meq/L Chloride (98-107) meq/L Carbon Dioxide (21.0-32.0) meq/L Anion Gap (5-15) meq/L BUN (7-18) mg/dL Creatinine (0.50-1.00) mg/dL Estimated GFR (>89) mL/min POC Glucose (68-110) mg/dl Random Glucose (74-106) mg/dL Calcium (8.5-10.1) mg/dL Phosphorus 2.9 (2.5-4.9) mg/dL Magnesium 2.0 (1.5-2.5) mg/dL Total Bilirubin (0.2-1.0) mg/dL AST (15-37) U/L ALT (10-53) U/L Alkaline Phosphatase (45-117) U/L Total Creatine Kinase (26-192) U/L CK-MB (CK-2) (0.5-3.6) ng/mL Troponin I (0.02-0.05) ng/mL B-Natriuretic Peptide 22 (0-100) pg/mL Total Protein (6.4-8.2) g/dL Albumin (3.4-5.0) g/dL Lipase (73-393) U/L Urine Color (Yellw/Straw) Urine Clarity (Clear) Urine pH (5.0-8.5) Ur Specific [place] (1.002-1.035) Urine Protein (Neg-Trace) mg/dL Urine Glucose (UA) (Negative) mg/dL Urine Ketones (Negative) mg/dL Urine Occult Blood (Negative) Urine Nitrate (Negative) Urine Bilirubin (Negative) Urine Urobilinogen (Less than 2) mg/dL Ur Leukocyte Esterase (Negative) Urine WBC (0-5) /hpf Ur Squamous Epith Cells (0-5) /hpf Hyaline Casts (0-3) /lpf Micro UA Comment Ur Microscopic Review Urine Culture Comments Nasal Screen MRSA (PCR) (Negative) 07/05/18 07/05/18 07/05/18 Range/Units 00:20 02:09 02:09 WBC 12.6 H (4.0-11.0) th/mm3 RBC 4.46 (4.00-5.30) mil/mm3 Hgb 13.0 (11.6-15.3) gm/dL Hct 38.9 (35.0-46.0) % MCV 87.1 (80.0-100.0) fL MCH 29.1 (27.0-34.0) pg MCHC 33.5 (32.0-36.0) % RDW 15.2 (11.6-17.2) % Plt Count 252 (150-450) th/mm3 MPV 7.6 (7.0-11.0) fL Neut % (Auto) 65.1 (16.0-70.0) % Lymph % (Auto) 27.2 (9.0-44.0) % [place] % (Auto) 5.8 (0.0-8.0) % Eos % (Auto) 1.0 (0.0-4.0) % Baso % (Auto) 0.9 (0.0-2.0) % Neut # (Auto) 8.2 H (1.8-7.7) th/mm3 Lymph # (Auto) 3.4 (1.0-4.8) th/mm3 [place] # (Auto) 0.7 (0.0-0.9) th/mm3 Eos # (Auto) 0.1 (0.0-0.4) th/mm3 Baso # (Auto) 0.1 (0.0-0.2) th/mm3 WBC Differential . Differential Comment Auto diff final PT (9.8-11.6) sec INR Ratio APTT (24.3-30.1) sec Sodium 140 (136-145) meq/L Potassium 4.3 (3.5-5.1) meq/L Chloride 107 (98-107) meq/L Carbon Dioxide 21.9 (21.0-32.0) meq/L Anion Gap 11 (5-15) meq/L BUN 27 H (7-18) mg/dL Creatinine 1.82 H (0.50-1.00) mg/dL Estimated GFR 27 L (>89) mL/min POC Glucose (68-110) mg/dl Random Glucose 160 H (74-106) mg/dL Calcium 9.4 (8.5-10.1) mg/dL Phosphorus (2.5-4.9) mg/dL Magnesium (1.5-2.5) mg/dL Total Bilirubin 0.6 (0.2-1.0) mg/dL AST 28 (15-37) U/L ALT 42 (10-53) U/L Alkaline Phosphatase 66 (45-117) U/L Total Creatine Kinase (26-192) U/L CK-MB (CK-2) (0.5-3.6) ng/mL Troponin I 0.11 H (0.02-0.05) ng/mL B-Natriuretic Peptide (0-100) pg/mL Total Protein 7.8 (6.4-8.2) g/dL Albumin 3.6 (3.4-5.0) g/dL Lipase (73-393) U/L Urine Color (Yellw/Straw) Urine Clarity (Clear) Urine pH (5.0-8.5) Ur Specific [place] (1.002-1.035) Urine Protein (Neg-Trace) mg/dL Urine Glucose (UA) (Negative) mg/dL Urine Ketones (Negative) mg/dL Urine Occult Blood (Negative) Urine Nitrate (Negative) Urine Bilirubin (Negative) Urine Urobilinogen (Less than 2) mg/dL Ur Leukocyte Esterase (Negative) Urine WBC (0-5) /hpf Ur Squamous Epith Cells (0-5) /hpf Hyaline Casts (0-3) /lpf Micro UA Comment Ur Microscopic Review Urine Culture Comments Nasal Screen MRSA (PCR) Not detected (Negative) 07/05/18 07/05/18 07/05/18 Range/Units 08:05 10:16 11:54 WBC (4.0-11.0) th/mm3 RBC (4.00-5.30) mil/mm3 Hgb (11.6-15.3) gm/dL Hct (35.0-46.0) % MCV (80.0-100.0) fL MCH (27.0-34.0) pg MCHC (32.0-36.0) % RDW (11.6-17.2) % Plt Count (150-450) th/mm3 MPV (7.0-11.0) fL Neut % (Auto) (16.0-70.0) % Lymph % (Auto) (9.0-44.0) % [place] % (Auto) (0.0-8.0) % Eos % (Auto) (0.0-4.0) % Baso % (Auto) (0.0-2.0) % Neut # (Auto) (1.8-7.7) th/mm3 Lymph # (Auto) (1.0-4.8) th/mm3 [place] # (Auto) (0.0-0.9) th/mm3 Eos # (Auto) (0.0-0.4) th/mm3 Baso # (Auto) (0.0-0.2) th/mm3 WBC Differential Differential Comment PT (9.8-11.6) sec INR Ratio APTT (24.3-30.1) sec Sodium (136-145) meq/L Potassium (3.5-5.1) meq/L Chloride (98-107) meq/L Carbon Dioxide (21.0-32.0) meq/L Anion Gap (5-15) meq/L BUN (7-18) mg/dL Creatinine (0.50-1.00) mg/dL Estimated GFR (>89) mL/min POC Glucose 188 H 193 H (68-110) mg/dl Random Glucose (74-106) mg/dL Calcium (8.5-10.1) mg/dL Phosphorus (2.5-4.9) mg/dL Magnesium (1.5-2.5) mg/dL Total Bilirubin (0.2-1.0) mg/dL AST (15-37) U/L ALT (10-53) U/L Alkaline Phosphatase (45-117) U/L Total Creatine Kinase (26-192) U/L CK-MB (CK-2) (0.5-3.6) ng/mL Troponin I 0.05 (0.02-0.05) ng/mL B-Natriuretic Peptide (0-100) pg/mL Total Protein (6.4-8.2) g/dL Albumin (3.4-5.0) g/dL Lipase (73-393) U/L Urine Color (Yellw/Straw) Urine Clarity (Clear) Urine pH (5.0-8.5) Ur Specific [place] (1.002-1.035) Urine Protein (Neg-Trace) mg/dL Urine Glucose (UA) (Negative) mg/dL Urine Ketones (Negative) mg/dL Urine Occult Blood (Negative) Urine Nitrate (Negative) Urine Bilirubin (Negative) Urine Urobilinogen (Less than 2) mg/dL Ur Leukocyte Esterase (Negative) Urine WBC (0-5) /hpf Ur Squamous Epith Cells (0-5) /hpf Hyaline Casts (0-3) /lpf Micro UA Comment Ur Microscopic Review Urine Culture Comments Nasal Screen MRSA (PCR) (Negative) 07/05/18 07/05/18 07/05/18 Range/Units 15:10 16:43 17:18 WBC (4.0-11.0) th/mm3 RBC (4.00-5.30) mil/mm3 Hgb (11.6-15.3) gm/dL Hct (35.0-46.0) % MCV (80.0-100.0) fL MCH (27.0-34.0) pg MCHC (32.0-36.0) % RDW (11.6-17.2) % Plt Count (150-450) th/mm3 MPV (7.0-11.0) fL Neut % (Auto) (16.0-70.0) % Lymph % (Auto) (9.0-44.0) % [place] % (Auto) (0.0-8.0) % Eos % (Auto) (0.0-4.0) % Baso % (Auto) (0.0-2.0) % Neut # (Auto) (1.8-7.7) th/mm3 Lymph # (Auto) (1.0-4.8) th/mm3 [place] # (Auto) (0.0-0.9) th/mm3 Eos # (Auto) (0.0-0.4) th/mm3 Baso # (Auto) (0.0-0.2) th/mm3 WBC Differential Differential Comment PT (9.8-11.6) sec INR Ratio APTT (24.3-30.1) sec Sodium (136-145) meq/L Potassium (3.5-5.1) meq/L Chloride (98-107) meq/L Carbon Dioxide (21.0-32.0) meq/L Anion Gap (5-15) meq/L BUN (7-18) mg/dL Creatinine (0.50-1.00) mg/dL Estimated GFR (>89) mL/min POC Glucose 178 H (68-110) mg/dl Random Glucose (74-106) mg/dL Calcium (8.5-10.1) mg/dL Phosphorus (2.5-4.9) mg/dL Magnesium (1.5-2.5) mg/dL Total Bilirubin (0.2-1.0) mg/dL AST (15-37) U/L ALT (10-53) U/L Alkaline Phosphatase (45-117) U/L Total Creatine Kinase (26-192) U/L CK-MB (CK-2) (0.5-3.6) ng/mL Troponin I 0.05 (0.02-0.05) ng/mL B-Natriuretic Peptide (0-100) pg/mL Total Protein (6.4-8.2) g/dL Albumin (3.4-5.0) g/dL Lipase (73-393) U/L Urine Color Yellow (Yellw/Straw) Urine Clarity Hazy H (Clear) Urine pH 5.0 (5.0-8.5) Ur Specific [place] 1.016 (1.002-1.035) Urine Protein 500 or greater (Neg-Trace) mg/dL Urine Glucose (UA) Negative (Negative) mg/dL Urine Ketones Negative (Negative) mg/dL Urine Occult Blood Negative (Negative) Urine Nitrate Negative (Negative) Urine Bilirubin Negative (Negative) Urine Urobilinogen Less than 2 (Less than 2) mg/dL Ur Leukocyte Esterase Small H (Negative) Urine WBC 29 H (0-5) /hpf Ur Squamous Epith Cells 1 (0-5) /hpf Hyaline Casts 1 (0-3) /lpf Micro UA Comment Cath-culture ind Ur Microscopic Review Not Reportable Urine Culture Comments Cath-cult indicated Nasal Screen MRSA (PCR) (Negative) 07/05/18 07/06/18 07/06/18 Range/Units 20:24 04:40 04:40 WBC 11.8 H (4.0-11.0) th/mm3 RBC 3.73 L (4.00-5.30) mil/mm3 Hgb 10.9 L D (11.6-15.3) gm/dL Hct 32.5 L (35.0-46.0) % MCV 87.2 (80.0-100.0) fL MCH 29.2 (27.0-34.0) pg MCHC 33.5 (32.0-36.0) % RDW 15.6 (11.6-17.2) % Plt Count 239 (150-450) th/mm3 MPV 7.9 (7.0-11.0) fL Neut % (Auto) 66.6 (16.0-70.0) % Lymph % (Auto) 22.8 (9.0-44.0) % [place] % (Auto) 6.2 (0.0-8.0) % Eos % (Auto) 3.6 (0.0-4.0) % Baso % (Auto) 0.8 (0.0-2.0) % Neut # (Auto) 7.8 H (1.8-7.7) th/mm3 Lymph # (Auto) 2.7 (1.0-4.8) th/mm3 [place] # (Auto) 0.7 (0.0-0.9) th/mm3 Eos # (Auto) 0.4 (0.0-0.4) th/mm3 Baso # (Auto) 0.1 (0.0-0.2) th/mm3 WBC Differential . Differential Comment Auto diff final PT (9.8-11.6) sec INR Ratio APTT (24.3-30.1) sec Sodium 141 (136-145) meq/L Potassium 4.4 (3.5-5.1) meq/L Chloride 108 H (98-107) meq/L Carbon Dioxide 21.4 (21.0-32.0) meq/L Anion Gap 12 (5-15) meq/L BUN 27 H (7-18) mg/dL Creatinine 1.68 H (0.50-1.00) mg/dL Estimated GFR 29 L (>89) mL/min POC Glucose 238 H (68-110) mg/dl Random Glucose 150 H (74-106) mg/dL Calcium 8.4 L D (8.5-10.1) mg/dL Phosphorus 3.5 (2.5-4.9) mg/dL Magnesium 2.4 (1.5-2.5) mg/dL Total Bilirubin (0.2-1.0) mg/dL AST (15-37) U/L ALT (10-53) U/L Alkaline Phosphatase (45-117) U/L Total Creatine Kinase (26-192) U/L CK-MB (CK-2) (0.5-3.6) ng/mL Troponin I (0.02-0.05) ng/mL B-Natriuretic Peptide (0-100) pg/mL Total Protein (6.4-8.2) g/dL Albumin (3.4-5.0) g/dL Lipase (73-393) U/L Urine Color ([place]ellw/Straw) Urine Clarity (Clear) Urine pH (5.0-8.5) Ur Specific [place] (1.002-1.035) Urine Protein (Neg-Trace) mg/dL Urine Glucose (UA) (Negative) mg/dL Urine Ketones (Negative) mg/dL Urine Occult Blood (Negative) Urine Nitrate (Negative) Urine Bilirubin (Negative) Urine Urobilinogen (Less than 2) mg/dL Ur Leukocyte Esterase (Negative) Urine WBC (0-5) /hpf Ur Squamous Epith Cells (0-5) /hpf Hyaline Casts (0-3) /lpf Micro UA Comment Ur Microscopic Review Urine Culture Comments Nasal Screen MRSA (PCR) (Negative) 07/06/18 07/06/18 07/06/18 Range/Units 08:28 11:21 11:59 WBC (4.0-11.0) th/mm3 RBC (4.00-5.30) mil/mm3 Hgb (11.6-15.3) gm/dL Hct (35.0-46.0) % MCV (80.0-100.0) fL MCH (27.0-34.0) pg MCHC (32.0-36.0) % RDW (11.6-17.2) % Plt Count (150-450) th/mm3 MPV (7.0-11.0) fL Neut % (Auto) (16.0-70.0) % Lymph % (Auto) (9.0-44.0) % [place] % (Auto) (0.0-8.0) % Eos % (Auto) (0.0-4.0) % Baso % (Auto) (0.0-2.0) % Neut # (Auto) (1.8-7.7) th/mm3 Lymph # (Auto) (1.0-4.8) th/mm3 [place] # (Auto) (0.0-0.9) th/mm3 Eos # (Auto) (0.0-0.4) th/mm3 Baso # (Auto) (0.0-0.2) th/mm3 WBC Differential Differential Comment PT (9.8-11.6) sec INR Ratio APTT (24.3-30.1) sec Sodium (136-145) meq/L Potassium (3.5-5.1) meq/L Chloride (98-107) meq/L Carbon Dioxide (21.0-32.0) meq/L Anion Gap (5-15) meq/L BUN (7-18) mg/dL Creatinine (0.50-1.00) mg/dL Estimated GFR (>89) mL/min POC Glucose 162 H 255 H (68-110) mg/dl Random Glucose (74-106) mg/dL Calcium (8.5-10.1) mg/dL Phosphorus (2.5-4.9) mg/dL Magnesium (1.5-2.5) mg/dL Total Bilirubin (0.2-1.0) mg/dL AST (15-37) U/L ALT (10-53) U/L Alkaline Phosphatase (45-117) U/L Total Creatine Kinase 55 (26-192) U/L CK-MB (CK-2) (0.5-3.6) ng/mL Troponin I 0.03 (0.02-0.05) ng/mL B-Natriuretic Peptide (0-100) pg/mL Total Protein (6.4-8.2) g/dL Albumin (3.4-5.0) g/dL Lipase (73-393) U/L Urine Color ([place]ell[place]/Straw) Urine Clarity (Clear) Urine pH (5.0-8.5) Ur Specific [place] (1.002-1.035) Urine Protein (Neg-Trace) mg/dL Urine Glucose (UA) (Negative) mg/dL Urine Ketones (Negative) mg/dL Urine Occult Blood (Negative) Urine Nitrate (Negative) Urine Bilirubin (Negative) Urine Urobilinogen (Less than 2) mg/dL Ur Leukocyte Esterase (Negative) Urine WBC (0-5) /hpf Ur Squamous Epith Cells (0-5) /hpf Hyaline Casts (0-3) /lpf Micro UA Comment Ur Microscopic Review Urine Culture Comments Nasal Screen MRSA (PCR) (Negative) 07/06/18 07/06/18 07/07/18 Range/Units 17:08 20:01 08:24 WBC (4.0-11.0) th/mm3 RBC (4.00-5.30) mil/mm3 Hgb (11.6-15.3) gm/dL Hct (35.0-46.0) % MCV (80.0-100.0) fL MCH (27.0-34.0) pg MCHC (32.0-36.0) % RDW (11.6-17.2) % Plt Count (150-450) th/mm3 MPV (7.0-11.0) fL Neut % (Auto) (16.0-70.0) % Lymph % (Auto) (9.0-44.0) % [place] % (Auto) (0.0-8.0) % Eos % (Auto) (0.0-4.0) % Baso % (Auto) (0.0-2.0) % Neut # (Auto) (1.8-7.7) th/mm3 Lymph # (Auto) (1.0-4.8) th/mm3 [place] # (Auto) (0.0-0.9) th/mm3 Eos # (Auto) (0.0-0.4) th/mm3 Baso # (Auto) (0.0-0.2) th/mm3 WBC Differential Differential Comment PT (9.8-11.6) sec INR Ratio APTT (24.3-30.1) sec Sodium (136-145) meq/L Potassium (3.5-5.1) meq/L Chloride (98-107) meq/L Carbon Dioxide (21.0-32.0) meq/L Anion Gap (5-15) meq/L BUN (7-18) mg/dL Creatinine (0.50-1.00) mg/dL Estimated GFR (>89) mL/min POC Glucose 135 H 220 H 159 H (68-110) mg/dl Random Glucose (74-106) mg/dL Calcium (8.5-10.1) mg/dL Phosphorus (2.5-4.9) mg/dL Magnesium (1.5-2.5) mg/dL Total Bilirubin (0.2-1.0) mg/dL AST (15-37) U/L ALT (10-53) U/L Alkaline Phosphatase (45-117) U/L Total Creatine Kinase (26-192) U/L CK-MB (CK-2) (0.5-3.6) ng/mL Troponin I (0.02-0.05) ng/mL B-Natriuretic Peptide (0-100) pg/mL Total Protein (6.4-8.2) g/dL Albumin (3.4-5.0) g/dL Lipase (73-393) U/L Urine Color (Yellw/Straw) Urine Clarity (Clear) Urine pH (5.0-8.5) Ur Specific [place] (1.002-1.035) Urine Protein (Neg-Trace) mg/dL Urine Glucose (UA) (Negative) mg/dL Urine Ketones (Negative) mg/dL Urine Occult Blood (Negative) Urine Nitrate (Negative) Urine Bilirubin (Negative) Urine Urobilinogen (Less than 2) mg/dL Ur Leukocyte Esterase (Negative) Urine WBC (0-5) /hpf Ur Squamous Epith Cells (0-5) /hpf Hyaline Casts (0-3) /lpf Micro UA Comment Ur Microscopic Review Urine Culture Comments Nasal Screen MRSA (PCR) (Negative) 07/07/18 07/07/18 07/07/18 Range/Units 12:20 13:04 17:36 WBC (4.0-11.0) th/mm3 RBC (4.00-5.30) mil/mm3 Hgb (11.6-15.3) gm/dL Hct (35.0-46.0) % MCV (80.0-100.0) fL MCH (27.0-34.0) pg MCHC (32.0-36.0) % RDW (11.6-17.2) % Plt Count (150-450) th/mm3 MPV (7.0-11.0) fL Neut % (Auto) (16.0-70.0) % Lymph % (Auto) (9.0-44.0) % [place] % (Auto) (0.0-8.0) % Eos % (Auto) (0.0-4.0) % Baso % (Auto) (0.0-2.0) % Neut # (Auto) (1.8-7.7) th/mm3 Lymph # (Auto) (1.0-4.8) th/mm3 [place] # (Auto) (0.0-0.9) th/mm3 Eos # (Auto) (0.0-0.4) th/mm3 Baso # (Auto) (0.0-0.2) th/mm3 WBC Differential Differential Comment PT (9.8-11.6) sec INR Ratio APTT (24.3-30.1) sec Sodium (136-145) meq/L Potassium (3.5-5.1) meq/L Chloride (98-107) meq/L Carbon Dioxide (21.0-32.0) meq/L Anion Gap (5-15) meq/L BUN (7-18) mg/dL Creatinine (0.50-1.00) mg/dL Estimated GFR (>89) mL/min POC Glucose 229 H 203 H (68-110) mg/dl Random Glucose (74-106) mg/dL Calcium (8.5-10.1) mg/dL Phosphorus (2.5-4.9) mg/dL Magnesium (1.5-2.5) mg/dL Total Bilirubin (0.2-1.0) mg/dL AST (15-37) U/L ALT (10-53) U/L Alkaline Phosphatase (45-117) U/L Total Creatine Kinase (26-192) U/L CK-MB (CK-2) (0.5-3.6) ng/mL Troponin I 0.02 (0.02-0.05) ng/mL B-Natriuretic Peptide (0-100) pg/mL Total Protein (6.4-8.2) g/dL Albumin (3.4-5.0) g/dL Lipase (73-393) U/L Urine Color (Yellw/Straw) Urine Clarity (Clear) Urine pH (5.0-8.5) Ur Specific [place] (1.002-1.035) Urine Protein (Neg-Trace) mg/dL Urine Glucose (UA) (Negative) mg/dL Urine Ketones (Negative) mg/dL Urine Occult Blood (Negative) Urine Nitrate (Negative) Urine Bilirubin (Negative) Urine Urobilinogen (Less than 2) mg/dL Ur Leukocyte Esterase (Negative) Urine WBC (0-5) /hpf Ur Squamous Epith Cells (0-5) /hpf Hyaline Casts (0-3) /lpf Micro UA Comment Ur Microscopic Review Urine Culture Comments Nasal Screen MRSA (PCR) (Negative) 07/07/18 07/08/18 07/08/18 Range/Units 20:18 07:31 13:20 WBC (4.0-11.0) th/mm3 RBC (4.00-5.30) mil/mm3 Hgb (11.6-15.3) gm/dL Hct (35.0-46.0) % MCV (80.0-100.0) fL MCH (27.0-34.0) pg MCHC (32.0-36.0) % RDW (11.6-17.2) % Plt Count (150-450) th/mm3 MPV (7.0-11.0) fL Neut % (Auto) (16.0-70.0) % Lymph % (Auto) (9.0-44.0) % [place] % (Auto) (0.0-8.0) % Eos % (Auto) (0.0-4.0) % Baso % (Auto) (0.0-2.0) % Neut # (Auto) (1.8-7.7) th/mm3 Lymph # (Auto) (1.0-4.8) th/mm3 [place] # (Auto) (0.0-0.9) th/mm3 Eos # (Auto) (0.0-0.4) th/mm3 Baso # (Auto) (0.0-0.2) th/mm3 WBC Differential Differential Comment PT (9.8-11.6) sec INR Ratio APTT (24.3-30.1) sec Sodium (136-145) meq/L Potassium (3.5-5.1) meq/L Chloride (98-107) meq/L Carbon Dioxide (21.0-32.0) meq/L Anion Gap (5-15) meq/L BUN (7-18) mg/dL Creatinine (0.50-1.00) mg/dL Estimated GFR (>89) mL/min POC Glucose 191 H 187 H 149 H (68-110) mg/dl Random Glucose (74-106) mg/dL Calcium (8.5-10.1) mg/dL Phosphorus (2.5-4.9) mg/dL Magnesium (1.5-2.5) mg/dL Total Bilirubin (0.2-1.0) mg/dL AST (15-37) U/L ALT (10-53) U/L Alkaline Phosphatase (45-117) U/L Total Creatine Kinase (26-192) U/L CK-MB (CK-2) (0.5-3.6) ng/mL Troponin I (0.02-0.05) ng/mL B-Natriuretic Peptide (0-100) pg/mL Total Protein (6.4-8.2) g/dL Albumin (3.4-5.0) g/dL Lipase (73-393) U/L Urine Color (Yellw/Straw) Urine Clarity (Clear) Urine pH (5.0-8.5) Ur Specific [place] (1.002-1.035) Urine Protein (Neg-Trace) mg/dL Urine Glucose (UA) (Negative) mg/dL Urine Ketones (Negative) mg/dL Urine Occult Blood (Negative) Urine Nitrate (Negative) Urine Bilirubin (Negative) Urine Urobilinogen (Less than 2) mg/dL Ur Leukocyte Esterase (Negative) Urine WBC (0-5) /hpf Ur Squamous Epith Cells (0-5) /hpf Hyaline Casts (0-3) /lpf Micro UA Comment Ur Microscopic Review Urine Culture Comments Nasal Screen MRSA (PCR) (Negative) 07/08/18 07/08/18 07/09/18 Range/Units 17:29 20:42 06:03 WBC 5.5 (4.0-11.0) th/mm3 RBC 3.28 L (4.00-5.30) mil/mm3 Hgb 9.9 L (11.6-15.3) gm/dL Hct 28.7 L (35.0-46.0) % MCV 87.3 (80.0-100.0) fL MCH 30.1 (27.0-34.0) pg MCHC 34.5 (32.0-36.0) % RDW 15.7 (11.6-17.2) % Plt Count 205 (150-450) th/mm3 MPV 8.0 (7.0-11.0) fL Neut % (Auto) (16.0-70.0) % Lymph % (Auto) (9.0-44.0) % [place] % (Auto) (0.0-8.0) % Eos % (Auto) (0.0-4.0) % Baso % (Auto) (0.0-2.0) % Neut # (Auto) (1.8-7.7) th/mm3 Lymph # (Auto) (1.0-4.8) th/mm3 [place] # (Auto) (0.0-0.9) th/mm3 Eos # (Auto) (0.0-0.4) th/mm3 Baso # (Auto) (0.0-0.2) th/mm3 WBC Differential Differential Comment PT (9.8-11.6) sec INR Ratio APTT (24.3-30.1) sec Sodium (136-145) meq/L Potassium (3.5-5.1) meq/L Chloride (98-107) meq/L Carbon Dioxide (21.0-32.0) meq/L Anion Gap (5-15) meq/L BUN (7-18) mg/dL Creatinine (0.50-1.00) mg/dL Estimated GFR (>89) mL/min POC Glucose 153 H 229 H (68-110) mg/dl Random Glucose (74-106) mg/dL Calcium (8.5-10.1) mg/dL Phosphorus (2.5-4.9) mg/dL Magnesium (1.5-2.5) mg/dL Total Bilirubin (0.2-1.0) mg/dL AST (15-37) U/L ALT (10-53) U/L Alkaline Phosphatase (45-117) U/L Total Creatine Kinase (26-192) U/L CK-MB (CK-2) (0.5-3.6) ng/mL Troponin I (0.02-0.05) ng/mL B-Natriuretic Peptide (0-100) pg/mL Total Protein (6.4-8.2) g/dL Albumin (3.4-5.0) g/dL Lipase (73-393) U/L Urine Color (Yellw/Straw) Urine Clarity (Clear) Urine pH (5.0-8.5) Ur Specific [place] (1.002-1.035) Urine Protein (Neg-Trace) mg/dL Urine Glucose (UA) (Negative) mg/dL Urine Ketones (Negative) mg/dL Urine Occult Blood (Negative) Urine Nitrate (Negative) Urine Bilirubin (Negative) Urine Urobilinogen (Less than 2) mg/dL Ur Leukocyte Esterase (Negative) Urine WBC (0-5) /hpf Ur Squamous Epith Cells (0-5) /hpf Hyaline Casts (0-3) /lpf Micro UA Comment Ur Microscopic Review Urine Culture Comments Nasal Screen MRSA (PCR) (Negative) 07/09/18 07/09/18 07/09/18 Range/Units 06:03 08:14 12:45 WBC (4.0-11.0) th/mm3 RBC (4.00-5.30) mil/mm3 Hgb (11.6-15.3) gm/dL Hct (35.0-46.0) % MCV (80.0-100.0) fL MCH (27.0-34.0) pg MCHC (32.0-36.0) % RDW (11.6-17.2) % Plt Count (150-450) th/mm3 MPV (7.0-11.0) fL Neut % (Auto) (16.0-70.0) % Lymph % (Auto) (9.0-44.0) % [place] % (Auto) (0.0-8.0) % Eos % (Auto) (0.0-4.0) % Baso % (Auto) (0.0-2.0) % Neut # (Auto) (1.8-7.7) th/mm3 Lymph # (Auto) (1.0-4.8) th/mm3 [place] # (Auto) (0.0-0.9) th/mm3 Eos # (Auto) (0.0-0.4) th/mm3 Baso # (Auto) (0.0-0.2) th/mm3 WBC Differential Differential Comment PT (9.8-11.6) sec INR Ratio APTT (24.3-30.1) sec Sodium 140 (136-145) meq/L Potassium 4.3 (3.5-5.1) meq/L Chloride 106 (98-107) meq/L Carbon Dioxide 21.9 (21.0-32.0) meq/L Anion Gap 12 (5-15) meq/L BUN 21 H (7-18) mg/dL Creatinine 1.49 H (0.50-1.00) mg/dL Estimated GFR 34 L (>89) mL/min POC Glucose 139 H 156 H (68-110) mg/dl Random Glucose 129 H (74-106) mg/dL Calcium 8.2 L (8.5-10.1) mg/dL Phosphorus (2.5-4.9) mg/dL Magnesium (1.5-2.5) mg/dL Total Bilirubin (0.2-1.0) mg/dL AST (15-37) U/L ALT (10-53) U/L Alkaline Phosphatase (45-117) U/L Total Creatine Kinase (26-192) U/L CK-MB (CK-2) (0.5-3.6) ng/mL Troponin I (0.02-0.05) ng/mL B-Natriuretic Peptide (0-100) pg/mL Total Protein (6.4-8.2) g/dL Albumin (3.4-5.0) g/dL Lipase (73-393) U/L Urine Color (Yellw/Straw) Urine Clarity (Clear) Urine pH (5.0-8.5) Ur Specific [place] (1.002-1.035) Urine Protein (Neg-Trace) mg/dL Urine Glucose (UA) (Negative) mg/dL Urine Ketones (Negative) mg/dL Urine Occult Blood (Negative) Urine Nitrate (Negative) Urine Bilirubin (Negative) Urine Urobilinogen (Less than 2) mg/dL Ur Leukocyte Esterase (Negative) Urine WBC (0-5) /hpf Ur Squamous Epith Cells (0-5) /hpf Hyaline Casts (0-3) /lpf Micro UA Comment Ur Microscopic Review Urine Culture Comments Nasal Screen MRSA (PCR) (Negative) 07/09/18 Range/Units 16:25 WBC (4.0-11.0) th/mm3 RBC (4.00-5.30) mil/mm3 Hgb (11.6-15.3) gm/dL Hct (35.0-46.0) % MCV (80.0-100.0) fL MCH (27.0-34.0) pg MCHC (32.0-36.0) % RDW (11.6-17.2) % Plt Count (150-450) th/mm3 MPV (7.0-11.0) fL Neut % (Auto) (16.0-70.0) % Lymph % (Auto) (9.0-44.0) % [place] % (Auto) (0.0-8.0) % Eos % (Auto) (0.0-4.0) % Baso % (Auto) (0.0-2.0) % Neut # (Auto) (1.8-7.7) th/mm3 Lymph # (Auto) (1.0-4.8) th/mm3 [place] # (Auto) (0.0-0.9) th/mm3 Eos # (Auto) (0.0-0.4) th/mm3 Baso # (Auto) (0.0-0.2) th/mm3 WBC Differential Differential Comment PT (9.8-11.6) sec INR Ratio APTT (24.3-30.1) sec Sodium (136-145) meq/L Potassium (3.5-5.1) meq/L Chloride (98-107) meq/L Carbon Dioxide (21.0-32.0) meq/L Anion Gap (5-15) meq/L BUN (7-18) mg/dL Creatinine (0.50-1.00) mg/dL Estimated GFR (>89) mL/min POC Glucose 178 H (68-110) mg/dl Random Glucose (74-106) mg/dL Calcium (8.5-10.1) mg/dL Phosphorus (2.5-4.9) mg/dL Magnesium (1.5-2.5) mg/dL Total Bilirubin (0.2-1.0) mg/dL AST (15-37) U/L ALT (10-53) U/L Alkaline Phosphatase (45-117) U/L Total Creatine Kinase (26-192) U/L CK-MB (CK-2) (0.5-3.6) ng/mL Troponin I (0.02-0.05) ng/mL B-Natriuretic Peptide (0-100) pg/mL Total Protein (6.4-8.2) g/dL Albumin (3.4-5.0) g/dL Lipase (73-393) U/L Urine Color (Yellw/Straw) Urine Clarity (Clear) Urine pH (5.0-8.5) Ur Specific [place] (1.002-1.035) Urine Protein (Neg-Trace) mg/dL Urine Glucose (UA) (Negative) mg/dL Urine Ketones (Negative) mg/dL Urine Occult Blood (Negative) Urine Nitrate (Negative) Urine Bilirubin (Negative) Urine Urobilinogen (Less than 2) mg/dL Ur Leukocyte Esterase (Negative) Urine WBC (0-5) /hpf Ur Squamous Epith Cells (0-5) /hpf Hyaline Casts (0-3) /lpf Micro UA Comment Ur Microscopic Review Urine Culture Comments Nasal Screen MRSA (PCR) (Negative) Imaging Data Radiologist's impression: Chest X-Ray 07/04/18 19:30 CONCLUSION: Minimal basilar atelectasis or scarring. No effusion or pneumothorax. Chest X-Ray 07/06/18 06:00 CONCLUSION: No significant change. Mild left base atelectasis again noted. Chest X-Ray 07/07/18 00:00 CONCLUSION: Mild compensated cardiomegaly. Abdomen X-Ray 07/09/18 00:00 CONCLUSION: Nonspecific bowel gas pattern. ECG Data EKG Prior to Arrival: No Attestation: I personally reviewed and interpreted this ECG as follows: Prior ECG tracings: not available for review Interpretation: Normal sinus rhythm, 62 bpm, incomplete right bundle branch block, left anterior fascicular block, first-degree AV block, Discharge Plan Discharge Disposition Patient Disposition: 30 Still Patient Discharge Condition Condition: Good Discharge Order Discharge Orders: Discharge Order (Routine); Ordered 07/09/18 Ordered By: Randall Diehl Discharge Details Diagnosis: Symptomatic bradycardia Physicians Team ED Provider: Marcial Zamudio Primary Care Provider: UNKNOWN, Attending Provider: Randall Diehl Other Providers: [facility],Insurance ; [facility],[place] ; gM Daly Status ED Status: Left Department Discharge Information Discharge Date/Time: 07/05/18 00:35
[2018-07-04] MEDS ORDERED: Atropine Inj 1 MG/ML Vial IV.PUSH ONE (20:06)
[2018-07-04 20:07] LABS: Baso # (Auto) 0.1 th/mm3 (0.0-0.2); Baso % (Auto) 1.2 % (0.0-2.0); Eos # (Auto) 0.2 th/mm3 (0.0-0.4); Eos % (Auto) 1.5 % (0.0-4.0); Hematocrit 37.8 % (35.0-46.0); Hemoglobin 12.5 gm/dL (11.6-15.3); Lymph # (Auto) 2.4 th/mm3 (1.0-4.8); Lymph % (Auto) 20.6 % (9.0-44.0); Mean Corpuscular HGB Conc 33.2 % (32.0-36.0); Mean Corpuscular Volume 87.2 fL (80.0-100.0); Mean Platelet Volume 7.9 fL (7.0-11.0); Mono # (Auto) 0.6 th/mm3 (0.0-0.9); Mono % (Auto) 5.6 % (0.0-8.0); Neut # (Auto) 8.3 th/mm3 (1.8-7.7); Neut % (Auto) 71.1 % (16.0-70.0); Platelet Count 240 th/mm3 (150-450); Red Blood Count 4.33 mil/mm3 (4.00-5.30); Red Cell Distribution Width 15.4 % (11.6-17.2); White Blood Count 11.6 th/mm3 (4.0-11.0)
[2018-07-04 20:14] LABS: Activated Partial Thrombo Time 23.6 sec (24.3-30.1); INR 1.1 Ratio; Prothrombin Time 10.7 sec (9.8-11.6)
[2018-07-04 20:19] LABS: Alanine Aminotransferase 42 U/L (10-53)
[2018-07-04 20:23] LABS: Alkaline Phosphatase 62 U/L (45-117); Creatine Kinase 126 U/L (26-192); Total Protein 7.5 g/dL (6.4-8.2); Troponin I 0.08 ng/mL (0.02-0.05)
[2018-07-04 20:24] LABS: Albumin 3.5 g/dL (3.4-5.0); Anion Gap 14 meq/L (5-15); Aspartate Aminotransferase 31 U/L (15-37); Blood Urea Nitrogen 28 mg/dL (7-18); Calcium 9.1 mg/dL (8.5-10.1); Carbon Dioxide 18.9 meq/L (21.0-32.0); Chloride 106 meq/L (98-107); Glomerular Filtration Rate 25 mL/min (>89); Glucose,Random 170 mg/dL (74-106); Lipase 139 U/L (73-393); Potassium 4.6 meq/L (3.5-5.1); Sodium 139 meq/L (136-145)
--- NOTE | 2018-07-04 20:29 | XR ---
EXAM DATE: 07/04/2018 8:22 PM EDT AGE/SEX: 82 years / Female INDICATIONS: Chest pain. CLINICAL DATA: This is the patient's initial encounter. Patient reports that signs and symptoms have been present for 1 day and indicates a pain score of 5/10. MEDICAL/SURGICAL HISTORY: . Myocardial infarction. Hypertension Cardiovascular disease Cholecy stectomy. Hysterectomy. Coronary artery stent. [place] [facility] [place]. . FINDINGS: Minimal basilar atelectasis or scarring. Heart size mildly enlarged. No effusion. No pneumothorax. CONCLUSION: Minimal basilar atelectasis or scarring. No effusion or pneumothorax. Electronically signed by: Hector Montelongo MD 07/04/2018 8:28 PM EDT
[2018-07-04 20:36] LABS: Creatine Kinase MB 1.3 ng/mL (0.5-3.6)
--- NOTE | 2018-07-04 21:45 | P.HPCC ---
History of Present Illness Service: Critical care medicine Primary Care Physician: UNKNOWN Chief Complaint: Dizziness and bradycardia History of Present Illness: 82-year-old female with past medical history of diabetes, hypertension, coronary artery disease with prior's myocardial infarction and stent in 2017, chronic kidney disease stage III, congestive heart failure who presents to [facility] emergency department with bradycardia. She was recently admitted 07/01/18 for HTN and was discharged earlier today. She had presented with blood pressure up to 218/95. It appears that at the time of that admission she was on carvedilol 3.125 twice daily, Norvasc, and clonidine p.o. and losartan. During her hospitalization she was started on captopril, Procardia 60 mg p.o. daily, torsemide 10 mg p.o. twice daily, and clonidine patch. Norvasc and losartan were discontinued. She was also diagnosed with UTI and treated with Cipro. She was discharged home and had been walking around the house and feeling fine. She decided to go out to a restaurant for dinner and became dizzy and collapsed. When [facility] arrived her heart rate was in the 30s. Reportedly it came up to 60s on its own. She had another episode with heart rate in the "30s" while in the emergency department and was given atropine 0.5 mg IV and glucagon 1 mg IV. Rhythm strip demonstrates 10 seconds of non-conducted p-waves. She is normotensive, but did feel lightheaded during bradycardia. Patient states she has felt some "soreness" in her chest that she attributes to her recent coughing, but says it does not feel similar to prior UT or angina. Denies n/v/SOB/diaphoresis. Potassium is within normal limits. - Diagnosis (1) Elevated troponin I level (2) Symptomatic bradycardia (3) UTI (urinary tract infection) (4) CAD (coronary artery disease) (5) Second hand smoke exposure (6) Diabetes mellitus (7) CKD (chronic kidney disease) stage 3, GFR 30-59 ml/min Inpatient Certification: I certify that the inpatient services were ordered in accordance with Medicare regulations governing the order. This includes certification that hospital inpatient services are reasonable and necessary and in the case of services not specified as inpatient-only under 42 CFR 419.22(n), that they are appropriately provided as inpatient services in accordance to with the 2-midnight benchmark under 43 CFR 412.3(e) Review of Systems All other systems reviewed negative except as stated in HPI PMFSH - History History Provided By: Patient - Medical History Medical History: Medical History (Last Updated 07/04/18 @ 21:44 by Muna Rowe MD) CAD (coronary artery disease) CKD (chronic kidney disease) stage 3, GFR 30-59 ml/min History of hysterectomy Diabetes Hypertension - Surgical History Surgical History: Surgical History (Last Updated 07/04/18 @ 21:44 by Muna Roew MD) Hx of cholecystectomy Hx of tonsillectomy Hx of heart artery stent - Family History Family History: Family History (Last Updated 07/04/18 @ 21:44 by Muna Rowe MD) Father CAD (coronary artery disease) - Tobacco History Second Hand Smoke Exposure: Yes () Smoking Status: Never smoker - Alcohol History How Often Do You Have a Drink Containing Alcohol: Monthly or less - Substance Use History Substance History: No History of Abuse - Travel History Recent Travel in the [place] Within the Last 8 Weeks: No Recent Travel Out of the Country Within the Last 8 Weeks: No - Immunization History Tetanus Immunization: Unsure Hx Influenza Vaccine This Season: No Medications and Allergies Active Medications: Active Medications Sodium Chloride (Ns Flush) 2 ml IV.FLUSH UNSCH PRN PRN Reason: FLUSH AFTER USING IV ACCESS Allergies Allergy/AdvReac Type Severity Reaction Status Date / Time simvastatin Allergy Severe ARMS SWELL Verified 07/03/18 14:58 Home Medications Medication Instructions Recorded Confirmed Type aspirin [Aspir-81] 81 mg PO DAILY 07/01/18 07/01/18 History buspirone 30 mg PO ONCE 07/01/18 07/01/18 History carvedilol [Coreg] 3.125 mg PO BID 07/01/18 07/01/18 History metformin 750 mg PO BID 07/01/18 07/01/18 History Results - Labs CBC & Chem 7: 07/09/18 06:03 07/09/18 06:03 Labs: Short CBC 07/04/18 Range/Units 19:40 WBC 11.6 H (4.0-11.0) th/mm3 Hgb 12.5 (11.6-15.3) gm/dL Hct 37.8 (35.0-46.0) % Plt Count 240 D (150-450) th/mm3 BMP 07/04/18 19:40 Sodium 139 Potassium 4.6 Chloride 106 Carbon Dioxide 18.9 L BUN 28 H Creatinine 1.90 H Calcium 9.1 Cardiac Enzymes 07/04/18 Range/Units 19:40 Total Creatine Kinase 126 (26-192) U/L CK-MB (CK-2) 1.3 (0.5-3.6) ng/mL Troponin I 0.08 H (0.02-0.05) ng/mL Liver Function 07/04/18 Range/Units 19:40 Total Bilirubin 0.5 (0.2-1.0) mg/dL AST 31 (15-37) U/L ALT 42 (10-53) U/L Alkaline Phosphatase 62 (45-117) U/L Albumin 3.5 (3.4-5.0) g/dL - Imaging Impressions Chest X-Ray 07/04/18 19:30 CONCLUSION: Minimal basilar atelectasis or scarring. No effusion or pneumothorax. Exam Vital signs: Vital Signs 07/04/18 19:25 Temperature 98.4 F Pulse Rate 61 Respiratory Rate 18 Blood Pressure 151/63 H Pulse Oximetry 98 Intake & Output 07/04/18 07/04/18 07/05/18 06:59 18:59 06:59 Weight 74.843 kg Narrative: Heart rate currently 110. Blood pressure 150s over 60s. GENERAL: Well-nourished, well-developed patient who is alert, pleasant, talkative. SKIN: Warm and dry, well-perfused. HEAD: Atraumatic. Normocephalic. EYES: Pupils equal and round, reactive. No scleral icterus. No injection or drainage. ENT: No nasal bleeding or discharge. Mucous membranes pink and moist. NECK: Trachea midline. No JVD. CARDIOVASCULAR: Tachycardic, regular, sinus tach on the monitor. 3 out of 6 murmur left sternal border. RESPIRATORY: No accessory muscle use. Clear to auscultation. Breath sounds equal bilaterally. GASTROINTESTINAL: Abdomen soft, non-tender, nondistended. Bowel sounds present. MUSCULOSKELETAL: Extremities without clubbing, cyanosis, or edema. No obvious deformities. NEUROLOGICAL: Awake and alert. No obvious cranial nerve deficits. Motor grossly within normal limits. Normal speech. Caprini VTE Risk Assessment Caprini VTE Risk Assessment: Moderate/High Risk (score >= 2) Caprini Risk Assessment Model: Point Value = 1 Point Value = 2 Point Value = 3 Point Value = 5 Age 41-60 Minor surgery BMI > 25 kg/m2 Swollen legs Varicose veins or History of unexplained or recurrent spontaneous Oral contraceptives or hormone replacement Sepsis (< 1 month) Serious lung disease, including pneumonia (< 1 month) Abnormal pulmonary function Acute myocardial infarction Congestive heart failure (< 1 month) History of inflammatory bowel disease Medical patient at bed rest Age 61-74 Arthroscopic surgery Major open surgery (> 45 min) Laparoscopic surgery (> 45 min) Malignancy Confined to bed (> 72 hours) Immobilizing plaster cast Central venous access Age >= 75 History of VTE Family history of VTE Factor V Leiden Prothrombin [id number] Lupus anticoagulant Anticardiolipin antibodies Elevated serum homocysteine Heparin-induced thrombocytopenia Other congenital or acquired thrombophilia Stroke (< 1 month) Elective arthroplasty Hip, pelvis, or leg fracture Acute spinal cord injury (< 1 month) Prophylaxis Regimen: Total Risk Factor Score Risk Level Prophylaxis Regimen 0-1 Low Early ambulation 2 Moderate Order ONE of the following: *Sequential Compression Device (SCD) *Heparin 5000 units SQ BID 3-4 Higher Order ONE of the following medications: *Heparin 5000 units SQ TID *Enoxaparin/Lovenox 40 mg SQ daily (WT < 150 kg, CrCl > 30 mL/min) *Enoxaparin/Lovenox 30 mg SQ daily (WT < 150 kg, CrCl > 10-29 mL/min) *Enoxaparin/Lovenox 30 mg SQ BID (WT < 150 kg, CrCl > 30 mL/min) AND/OR *Sequential Compression Device (SCD) 5 or more Highest Order ONE of the following medications: *Heparin 5000 units SQ TID (Preferred with Epidurals) *Enoxaparin/Lovenox 40 mg SQ daily (WT < 150 kg, CrCl > 30 mL/min) *Enoxaparin/Lovenox 30 mg SQ daily (WT < 150 kg, CrCl > 10-29 mL/min) *Enoxaparin/Lovenox 30 mg SQ BID (WT < 150 kg, CrCl > 30 mL/min) AND *Sequential Compression Device (SCD) Assessment and Plan - Problem List (1) Elevated troponin I level Code(s): R74.8 - Abnormal levels of other serum enzymes Status: Acute (2) Symptomatic bradycardia Code(s): R00.1 - Bradycardia, unspecified Status: Acute (3) UTI (urinary tract infection) Code(s): N39.0 - Urinary tract infection, site not specified Status: Acute (4) CAD (coronary artery disease) Code(s): I25.10 - Atherosclerotic heart disease of [place] coronary artery without angina pectoris Status: Chronic (5) Second hand smoke exposure Code(s): Z77.22 - Contact with and (suspected) exposure to environmental tobacco smoke (acute) (chronic) Status: Chronic (6) Diabetes mellitus Code(s): E11.9 - Type 2 diabetes mellitus without complications Status: Chronic (7) CKD (chronic kidney disease) stage 3, GFR 30-59 ml/min Code(s): N18.3 - Chronic kidney disease, stage 3 (moderate) Status: Chronic - Assessment and Plan Plan: NEURO: RESP: Significant history of secondhand smoke exposure On RA. CV: Symptomatic bradycardia Coronary artery disease with prior angioplasty/stent RCA, mid LAD, distal LAD 2016 Dr. Daly. HTN Received atropine and glucagon 1 mg IV in the emergency department. Currently is tachycardic. Will monitor on telemetry, consider isuprel if ongoing issues with bradycardia. We will hold beta-faustino. Clonidine is a much less likely contributor but can be associated with bradycardia, so will remove patch for now during this acute issue. Continue procardia. hold captopril and torsemide for now in view of worsening renal function. Obtain 2D Echo. Aspirin 162 mg p.o. now, continue daily aspirin. Serial cardiac markers and EKG. Telemetry monitoring. Patient has history of high-grade AVB requiring temporary pacemaker when she had prior anterior UT in 2017. Initial EKG with no STEMI and she is denying anginal symptoms but will initiate heparin if significant uptrend of troponin. Her tank tender is Dr. Roa and she requests that he see her. 2D echo from 05/18/17ejection fraction 60-65%. GI: GERD Continue H2 faustino 1800-calorie ADA FEN/RENAL: Chronic kidney disease stage III Creatinine has uptrended. Hold torsemide for now as lungs are clear. Check magnesium. Monitor intake and output. Monitor BMP. ID: UTI Mild leukocytosis Urine culture with Klebsiella that was sensitive to fluoroquinolone. Had been started on ceftriaxone 07/01 and ultimately switched to cipro. Continue Cipro 250 mg p.o. twice daily. HEME: No acute hematologic issues. ENDO: Diabetes mellitus Hold metformin Monitor bedside glucose before meals at bedtime and administer low-dose insulin sliding scale as indicated. PROPH: SCDs/heparin subcut for DVT prophylaxis. Patient is on ranitidine at home. We will continue H2 faustino in the hospital. ACCESS: Peripheral IV is providing adequate access at this time. Level 3 H&P
[2018-07-04] MEDS ORDERED: Bisacodyl 10 MG Supp RECTAL PRN (22:33)
[2018-07-04] MEDS ORDERED: Dextrose 50% in Water 50 ML Vial IV.PUSH PRN (23:01)
[2018-07-04] MEDS ORDERED: Famotidine 20 MG Tablet PO PRN (23:45)
[2018-07-05] MEDS: Heparin - SQ 10,000 UNITS/ML Vial SQ SCH ×4 (01:26→21:01)
[2018-07-05 02:37] LABS: Alanine Aminotransferase 42 U/L (10-53); Albumin 3.6 g/dL (3.4-5.0); Anion Gap 11 meq/L (5-15); Aspartate Aminotransferase 28 U/L (15-37); Blood Urea Nitrogen 27 mg/dL (7-18); Calcium 9.4 mg/dL (8.5-10.1); Carbon Dioxide 21.9 meq/L (21.0-32.0); Chloride 107 meq/L (98-107); Glomerular Filtration Rate 27 mL/min (>89); Glucose,Random 160 mg/dL (74-106); Potassium 4.3 meq/L (3.5-5.1); Sodium 140 meq/L (136-145)
[2018-07-05 02:41] LABS: Alkaline Phosphatase 66 U/L (45-117); Total Protein 7.8 g/dL (6.4-8.2); Troponin I 0.11 ng/mL (0.02-0.05)
[2018-07-05 02:47] LABS: Baso # (Auto) 0.1 th/mm3 (0.0-0.2); Baso % (Auto) 0.9 % (0.0-2.0); Eos # (Auto) 0.1 th/mm3 (0.0-0.4); Hematocrit 38.9 % (35.0-46.0); Lymph # (Auto) 3.4 th/mm3 (1.0-4.8); Lymph % (Auto) 27.2 % (9.0-44.0); Mean Corpuscular HGB Conc 33.5 % (32.0-36.0); Mean Corpuscular Hemoglobin 29.1 pg (27.0-34.0); Mean Corpuscular Volume 87.1 fL (80.0-100.0); Mean Platelet Volume 7.6 fL (7.0-11.0); Mono # (Auto) 0.7 th/mm3 (0.0-0.9); Mono % (Auto) 5.8 % (0.0-8.0); Neut # (Auto) 8.2 th/mm3 (1.8-7.7); Neut % (Auto) 65.1 % (16.0-70.0); Platelet Count 252 th/mm3 (150-450); Red Blood Count 4.46 mil/mm3 (4.00-5.30); Red Cell Distribution Width 15.2 % (11.6-17.2); White Blood Count 12.6 th/mm3 (4.0-11.0)
[2018-07-05] MEDS ORDERED: hydrALAZINE 25 MG Tablet PO PRN (03:30)
[2018-07-05] MEDS: Chlorhexidine Gluconate 2% 1 Pack (2 Cloths) TOPICAL SCH (03:32)
[2018-07-05] MEDS ORDERED: Chlorhexidine Gluconate 2% 1 Pack (2 Cloths) TOPICAL PRN (04:00)
[2018-07-05] MEDS ORDERED: hydrALAZINE HCl Inj 20 MG/ML Vial IV.PUSH PRN (07:45)
[2018-07-05] MEDS: Senna/Docusate Sodium 8.6/50 MG Tablet PO SCH ×2 (08:07→20:58)
[2018-07-05] MEDS: hydrALAZINE 25 MG Tablet PO SCH ×2 (10:03→18:27)
[2018-07-05] MEDS: Ciprofloxacin 250 MG Tablet PO SCH ×2 (10:04→10:06)
[2018-07-05] MEDS: Insulin NovoLOG Aspart Correctional Sugar Inj SQ SCH ×4 (10:05→20:57)
[2018-07-05] MEDS ORDERED: niCARdipine Inj 25 MG in Sodium Chlor 0.9% Inj 240 ML IV.CONT PRN (10:39)
--- NOTE | 2018-07-05 11:37 | P.PNCC ---
Subjective Subjective Remarks/Hospital Course: 82-year-old female with past medical history of diabetes, hypertension, coronary artery disease with prior's myocardial infarction and stent in 2017, chronic kidney disease stage III, congestive heart failure who presents to [facility] emergency department with bradycardia. She was recently admitted 07/01/18 for HTN and was discharged earlier today. She had presented with blood pressure up to 218/95. It appears that at the time of that admission she was on carvedilol 3.125 twice daily, Norvasc, and clonidine p.o. and losartan. During her hospitalization she was started on captopril, Procardia 60 mg p.o. daily, torsemide 10 mg p.o. twice daily, and clonidine patch. Norvasc and losartan were discontinued. She was also diagnosed with UTI and treated with Cipro. She was discharged home and had been walking around the house and feeling fine. She decided to go out to a restaurant for dinner and became dizzy and collapsed. When [facility] arrived her heart rate was in the 30s. Reportedly it came up to 60s on its own. She had another episode with heart rate in the "30s" while in the emergency department and was given atropine 0.5 mg IV and glucagon 1 mg IV. Rhythm strip demonstrates 10 seconds of non-conducted p-waves. She is normotensive, but did feel lightheaded during bradycardia. Patient states she has felt some "soreness" in her chest that she attributes to her recent coughing, but says it does not feel similar to prior ND or angina. Denies n/v/SOB/diaphoresis. Potassium is within normal limits. SUBJECTIVE: 07/05: Heart rate currently around 100. Now currently hypertensive. Will have cardiology evaluate her during this hospitalization. Discontinued beta-faustino and clonidine patch as above. Denies chest pain or shortness of breath currently. Objective Vital Signs / I&O: Vital Signs 07/04/18 19:25 07/04/18 19:30 07/04/18 19:45 Temperature 98.4 F Pulse Rate 61 66 104 H Respiratory Rate 18 18 Blood Pressure 151/63 H 158/71 H Pulse Oximetry 98 98 98 07/04/18 20:45 07/04/18 21:45 07/05/18 00:31 Temperature Pulse Rate 106 H 102 H 89 Respiratory Rate 16 16 42 H Blood Pressure 175/81 H 164/72 H Pulse Oximetry 96 95 98 07/05/18 01:00 07/05/18 01:35 07/05/18 02:00 Temperature Pulse Rate 87 81 94 H Respiratory Rate 18 23 26 H Blood Pressure 165/70 H 169/75 H Pulse Oximetry 97 98 95 07/05/18 03:00 07/05/18 04:00 07/05/18 04:35 Temperature 99 F Pulse Rate 91 H 88 Respiratory Rate 21 21 Blood Pressure 179/77 H 171/91 H Pulse Oximetry 96 95 98 07/05/18 05:00 07/05/18 06:00 07/05/18 07:00 Temperature 98.6 F Pulse Rate 97 H 83 95 H Respiratory Rate 24 23 23 Blood Pressure 149/65 H 141/65 H 200/81 H Pulse Oximetry 96 96 96 07/05/18 08:00 07/05/18 08:45 07/05/18 09:00 Temperature 98.6 F Pulse Rate 102 H 93 H Respiratory Rate 4 L 18 Blood Pressure 171/75 H 188/79 H Pulse Oximetry 98 97 97 07/05/18 10:00 07/05/18 10:01 07/05/18 11:00 Temperature Pulse Rate 96 H 97 H 99 H Respiratory Rate 20 24 20 Blood Pressure 150/65 H 150/65 H 156/72 H Pulse Oximetry 97 96 96 Intake & Output 07/04/18 07/05/18 07/05/18 18:59 06:59 18:59 Intake Total 360 / 360 Output Total 1850 / 1850 Balance -1490 / -1490 Weight 66 kg Intake: Oral 360 / 360 Output: Urine Amount (Catheter) 1850 / 1850 Indwelling Urethral Catheter 900 / 900 Straight 950 / 950 Other: Date of Last Bowel Movement 07/04/18 Weight On Admission 66 kg Result Diagrams: 07/05/18 02:09 07/05/18 02:09 Imaging: Chest X-Ray 07/04/18 19:30 CONCLUSION: Minimal basilar atelectasis or scarring. No effusion or pneumothorax. Objective Remarks: GENERAL: 82-year-old female, well-developed patient who is alert, pleasant, talkative. SKIN: Warm and dry, well-perfused. HEAD: Atraumatic. Normocephalic. EYES: Pupils equal and round, reactive. No scleral icterus. No injection or drainage. ENT: No nasal bleeding or discharge. Mucous membranes pink and moist. NECK: Trachea midline. No JVD. CARDIOVASCULAR: Tachycardic, RR. 3 out of 6 murmur systolic left sternal border. RESPIRATORY: No accessory muscle use. Clear to auscultation. Breath sounds equal bilaterally. GASTROINTESTINAL: Abdomen soft, non-tender, nondistended. Bowel sounds present. MUSCULOSKELETAL: Extremities without clubbing, cyanosis, or edema. No obvious deformities. NEUROLOGICAL: Awake and alert. No obvious cranial nerve deficits. Motor grossly within normal limits. Normal speech Assessment and Plan - Assessment and Plan Plan: NEURO/PSYCH: Depressive disorder NOS Anxiety disorder History of chronic benzodiazepine use Previously on buspirone 30 mg twice a day for anxiety Acetaminophen 650 mg by mouth every 6 hours. When I see for fever/pain RESP: Significant history of secondhand smoke exposure On RA. Nasal cannula to maintain saturations greater than equal to 92% Incentive spirometry while awake As needed albuterol aerosols every 2 hours. Dyspnea Chest x-ray in a.m. 07/06 CV: Symptomatic bradycardia Coronary artery disease with prior angioplasty/stent proximal/ostial RCA, mid LAD, distal LAD 05/2017 Dr. Daly. Essential HTN Hyperlipidemia Syncope likely cardiogenic Received atropine and glucagon 1 mg IV in the emergency department. Currently is tachycardic. Continue to monitor on telemetry, consider isuprel if ongoing issues with bradycardia. We will hold carvedilol 3.125 mg twice daily and clonidine patch 0.2 mg weekly with bradycardia. Continue nifedipine 60 mg daily extended release. hold captopril 25 mg twice daily and torsemide 10 mg twice daily for now in view of worsening renal function. Obtain 2D Echo. Aspirin 162 mg p.o. now, continue daily aspirin 81 mg daily. Serial cardiac markers and EKG. Telemetry monitoring. Patient has history of high-grade AVB requiring temporary pacemaker when she had prior anterior ND in 2017. We will start on hydralazine 50 mg 3 times daily and isosorbide dinitrate 10 mg 3 times daily in light of hypertension Her life science technician is Dr. Roa and she requests that he see her. Orthostatics have been ordered to be placed in chart 2D echo from 05/18/17ejection fraction 60-65%. Asymmetric septal hypertrophy. Trace MR. GI: GERD Docusate sodium/senna 1 tablet twice daily for bowel regimen Start on pantoprazole 40 mg p.o. daily holding ranitidine 75 mg twice daily/home medication. 1800-calorie ADA FEN/RENAL: Chronic kidney disease stage III Creatinine has uptrended currently 1.82. Avoid nephrotoxic medication monitor intake and output. monitor BMP. ID: Klebsiella UTI Urine culture with Klebsiella that was sensitive to fluoroquinolone. Had been started on ceftriaxone 07/01 and ultimately switched to ciprofloxacin. We will place on Rocephin 1 g daily while HEME: Mild leukocytosis Monitor CBC daily. Follow trends. ENDO: Diabetes mellitus Hold metformin 750 mg twice daily/home medication Sliding scale insulin with aspart insulin to maintain euglycemia/low regimen Monitor bedside glucose before meals at bedtime and administer low-dose insulin sliding scale as indicated. PROPH: SCDs/heparin subcut for DVT prophylaxis. Patient is on ranitidine at home. We will continue H2 faustino in the hospital. ACCESS: Peripheral IV is providing adequate access at this time. Level 2 follow-up
--- NOTE | 2018-07-05 13:36 | ECHRPT ---
Indication: SHORT OF BREATH CONCLUSIONS Normal left ventricular size. Wall thickness is normal. The left ventricular systolic function is normal with an estimated ejection fraction in the range of 55-60%. The left atrial size is mildly dilated. Mitral annular calcification is present. [id number] mitral valve regurgitation. There is trace tricuspid valve regurgitation. The estimated pulmonary arterial pressure is 21 mmHg. BP: / HR: Rhythm: Technical Quality: FINDINGS LEFT VENTRICLE Normal left ventricular size. Wall thickness is normal. The left ventricular systolic function is normal with an estimated ejection fraction in the range of 55-60%. RIGHT VENTRICLE Normal right ventricular size and systolic function. LEFT ATRIUM The left atrial size is mildly dilated. RIGHT ATRIUM The right atrial size is normal. ATRIAL SEPTUM Normal atrial septal thickness without atrial level shunting by limited color doppler interrogation. AORTA The aortic root and proximal ascending aorta are normal in size on limited imaging. MITRAL VALVE Mitral annular calcification is present. [id number] mitral valve regurgitation. AORTIC VALVE Trileaflet aortic valve. No aortic valve stenosis or regurgitation. TRICUSPID VALVE There is trace tricuspid valve regurgitation. The estimated pulmonary arterial pressure is 21 mmHg. PULMONARY VALVE The pulmonary valve is not well visualized. VESSELS The inferior vena cava is normal in size. PERICARDIUM No pericardial effusion. Tj Goldstein MD, FACC (Electronically Signed) Final Date:05 July 2018 13:36
[2018-07-05 16:04] LABS: Bilirubin,Urine Negative (Negative); Clarity,Urine Hazy (Clear); Color,Urine Yellow (Yellw/Straw); Glucose,Urine (UA) Negative (Negative); Hyaline Casts,Urine 1 /lpf (0-3); Leukocyte Esterase,Urine Small (Negative); Nitrite,Urine Negative (Negative); Specific Gravity,Urine 1.016 (1.002-1.035); Squamous Epithelial Cell,Urine 1 /hpf (0-5)
--- NOTE | 2018-07-05 16:22 | P.CONCA ---
History of Present Illness Service: Cardiology Consult date: 07/05/18 Requesting Physician: Muna Rowe Reason for Consult: Symptomatic bradycardia Primary Care Provider: UNKNOWN Family Provider: Manas Borja MD Chief Complaint: Dizziness and bradycardia History of Present Illness: This is a very pleasant 82-year-old female with past medical history of diabetes, hypertension, coronary artery disease with prior myocardial infarction and stent in 2017, chronic kidney disease stage III and congestive heart failure. She presented to [place] emergency department with symptomatic bradycardia and hypertension. She was recently admitted on 07-01-18 for hypertension and was discharged home earlier today. Earlier today she was walking around her house feeling just fine and decided to go out to dinner where she became very dizzy and collapsed. [facility] arrived on scene and her heart rate was noted to be in the 30s. Heart rate increased into the 60s on its own but then she had another episode of a heart rate in the 30s when she was in the emergency department. At this time while in the emergency department she was given atropine 0.5 mg IV and glucagon 1 mg IV. Her rhythm strip demonstrates 10 seconds of nonconductive P waves. She did state that during this episode she did feel lightheaded with no other symptoms. She does complain of soreness in the chest which she believes is due to her recent cough. When asked if the pain is similar to the pain that she experienced during her [place], she states that it does not feel similar. Currently she denies any chest pain, pressure, palpitations, dizziness or edema. She does complain of shortness of breath that increases with activity and states this has been going on for over a year. She does complain of mild nausea which she has recently received Zofran 4 mg. Review of Systems All other systems reviewed negative except as stated in HPI PMFSH - History History Provided By: Patient - Medical History Medical History: Medical History (Last Reviewed 07/05/18 @ 11:55 by Shayan Alonso) CAD (coronary artery disease) CKD (chronic kidney disease) stage 3, GFR 30-59 ml/min History of hysterectomy Diabetes Hypertension - Surgical History Surgical History: Surgical History (Last Reviewed 07/05/18 @ 11:55 by Shayan Alonso) Hx of cholecystectomy Hx of tonsillectomy Hx of heart artery stent - Family History Family History: Family History (Last Updated 07/04/18 @ 21:44 by Muna Rowe MD) Father CAD (coronary artery disease) - Tobacco History Second Hand Smoke Exposure: Yes () Smoking Status: Never smoker - Alcohol History How Often Do You Have a Drink Containing Alcohol: Monthly or less - Substance Use History Substance History: No History of Abuse - Travel History Recent Travel in the [place] Within the Last 8 Weeks: No Recent Travel Out of the Country Within the Last 8 Weeks: No - Immunization History Tetanus Immunization: Unsure Hx Influenza Vaccine This Season: No Medications and Allergies Allergies Allergy/AdvReac Type Severity Reaction Status Date / Time simvastatin Allergy Severe ARMS SWELL Verified 07/03/18 14:58 Home Medications Medication Instructions Recorded Confirmed Type aspirin [Aspir-81] 81 mg PO DAILY 07/01/18 07/01/18 History buspirone 30 mg PO ONCE 07/01/18 07/01/18 History carvedilol [Coreg] 3.125 mg PO BID 07/01/18 07/01/18 History metformin 750 mg PO BID 07/01/18 07/01/18 History Active Medications: Active Medications Al Hydroxide/Mg Hydroxide (Milk Of Vashti Mock) 30 ml PO Q12H PRN PRN Reason: Mild Constipation Aspirin (Ecotrin) 81 mg PO DAILY [facility] Last Admin: 07/05/18 08:07 Dose: 81 mg Bisacodyl (Dulcolax Supp) 10 mg RECTAL DAILY PRN PRN Reason: SEVERE CONSITIPATION Chlorhexidine Gluconate (Chlorhexidine 2% Cloth) 3 pack TOPICAL DAILY@0400 [facility] Stop: 07/10/18 03:59 Last Admin: 07/05/18 03:32 Dose: 3 pack Chlorhexidine Gluconate (Chlorhexidine 2% Cloth) 3 pack TOPICAL DAILY@0400 PRN PRN Reason: Extra cloth needed Stop: 07/10/18 03:59 Dextrose (D50w Vial) 50 ml IV.PUSH UNSCH PRN PRN Reason: PER HYPOGLYCEMIA PROTOCOL Glucagon (Glucagon Inj) 1 mg OTHER PRN PRN PRN Reason: for Hypoglycemia Protocol Heparin Sodium (Porcine) (Heparin Inj) 5,000 units SQ Q8HR [facility] Last Admin: 07/05/18 14:00 Dose: 5,000 units Hydralazine HCl (Apresoline Inj) 10 mg IV.PUSH Q1H PRN PRN Reason: Sbp> Or = 170, Dbp> Or = 90 Hydralazine HCl (Apresoline) 50 mg PO Q8H [facility] Last Admin: 07/05/18 10:03 Dose: 50 mg Nicardipine HCl 25 mg/ Sodium (Chloride) 250 mls @ 25 mls/hr IV.CONT TITRATE PRN; Protocol PRN Reason: Per Protocol Ceftriaxone Sodium 1,000 mg/ (Sodium Chloride) 100 mls @ 200 mls/hr IV.SIG Q24H [facility] Last Infusion: 07/05/18 13:35 Dose: Infused Insulin Aspart (Novolog Insulin Correctional Sugar Inj) 0 unit SQ ACHS [facility]; Protocol Last Admin: 07/05/18 13:08 Dose: 1 unit Isosorbide Dinitrate (Isordil) 30 mg PO Q8H [facility] Last Admin: 07/05/18 10:04 Dose: 30 mg Lactulose (Lactulose Liq) 30 ml PO DAILY PRN PRN Reason: SEVERE CONSITIPATION Nifedipine (Procardia Xl) 60 mg PO DAILY [facility] Last Admin: 07/05/18 08:07 Dose: 60 mg Ondansetron HCl (Zofran Inj) 4 mg IV.PUSH Q6H PRN PRN Reason: NAUSEA OR VOMITING Last Admin: 07/05/18 11:56 Dose: 4 mg Pantoprazole Sodium (Protonix) 40 mg PO DAILY [facility] Prochlorperazine Edisylate (Compazine Inj) 5 mg IV.PUSH Q6H PRN PRN Reason: brekthrough nausea Senna/Docusate Sodium (Ashley-Colace) 1 tab PO BID [facility] Last Admin: 07/05/18 08:07 Dose: 1 tab Sennosides (Senokot) 17.2 mg PO Q12H PRN PRN Reason: Moderate Constipation Sodium Chloride (Ns Flush) 2 ml IV.FLUSH BID [facility] Last Admin: 07/05/18 08:07 Dose: 2 ml Sodium Chloride (Ns Flush) 2 ml IV.FLUSH PRN PRN PRN Reason: FLUSH AFTER USING IV ACCESS Exam Vital signs: Vital Signs 07/04/18 19:25 07/04/18 19:30 07/04/18 19:45 Temperature 98.4 F Pulse Rate 61 66 104 H Respiratory Rate 18 18 Blood Pressure 151/63 H 158/71 H Pulse Oximetry 98 98 98 07/04/18 20:45 07/04/18 21:45 07/05/18 00:31 Temperature Pulse Rate 106 H 102 H 89 Respiratory Rate 16 16 42 H Blood Pressure 175/81 H 164/72 H Pulse Oximetry 96 95 98 07/05/18 01:00 07/05/18 01:35 07/05/18 02:00 Temperature Pulse Rate 87 81 94 H Respiratory Rate 18 23 26 H Blood Pressure 165/70 H 169/75 H Pulse Oximetry 97 98 95 07/05/18 03:00 07/05/18 04:00 07/05/18 04:35 Temperature 99 F Pulse Rate 91 H 88 Respiratory Rate 21 21 Blood Pressure 179/77 H 171/91 H Pulse Oximetry 96 95 98 07/05/18 05:00 07/05/18 06:00 07/05/18 07:00 Temperature 98.6 F Pulse Rate 97 H 83 95 H Respiratory Rate 24 23 23 Blood Pressure 149/65 H 141/65 H 200/81 H Pulse Oximetry 96 96 96 07/05/18 08:00 07/05/18 08:45 07/05/18 09:00 Temperature 98.6 F Pulse Rate 102 H 93 H Respiratory Rate 4 L 18 Blood Pressure 171/75 H 188/79 H Pulse Oximetry 98 97 97 07/05/18 10:00 07/05/18 10:01 07/05/18 11:00 Temperature Pulse Rate 96 H 97 H 99 H Respiratory Rate 20 24 20 Blood Pressure 150/65 H 150/65 H 156/72 H Pulse Oximetry 97 96 96 07/05/18 12:00 07/05/18 13:00 07/05/18 13:02 Temperature 98.6 F Pulse Rate 95 H 98 H 99 H Respiratory Rate 26 H 26 H 25 H Blood Pressure 135/67 157/72 H 153/65 H Pulse Oximetry 97 96 96 07/05/18 14:00 07/05/18 15:00 Temperature Pulse Rate 96 H 103 H Respiratory Rate 22 23 Blood Pressure 136/63 143/67 H Pulse Oximetry 96 96 Intake & Output 07/04/18 07/05/18 07/05/18 18:59 06:59 18:59 Intake Total 360 / 360 100 / 100 Output Total 1850 / 1850 Balance -1490 / -1490 100 / 100 Weight 66 kg Intake: IV 100 / 100 Rocephin Inj 1,000 MG In NS Inj 100 / 100 100 ML @ 200 mls/hr IV.SIG Q24H [facility] Rx#:[id number] Oral 360 / 360 Output: Urine Amount (Catheter) 1850 / 1850 Indwelling Urethral Catheter 900 / 900 Straight 950 / 950 Other: Date of Last Bowel Movement 07/04/18 Weight On Admission 66 kg - Constitutional no acute distress - Routine HEENT Exam Head: Present: normocephalic Eye: Present: PERRL ENT: Present: mucous membranes moist - Routine Neck Exam Present: full ROM - Routine Respiratory Exam Present: CTA bilaterally - Routine Cardiovascular Exam Present: S1, S2, tachycardia. Absent: murmur, gallop, rubs - Routine Abdominal Exam Present: normoactive bowel sounds - Routine Extremities Exam Present: full ROM, pulses intact, normal capillary refill. Absent: cyanosis, clubbing, edema - Routine Skin Exam Present: intact - Routine Neurological Exam Present: oriented X3 Results 07/05/18 02:09 07/05/18 02:09 Cardiac Enzymes 07/04/18 07/04/18 07/05/18 Range/Units 19:40 19:40 02:09 AST 31 28 (15-37) U/L CK-MB (CK-2) 1.3 (0.5-3.6) ng/mL Troponin I 0.08 H 0.11 H (0.02-0.05) ng/mL B-Natriuretic Peptide 22 (0-100) pg/mL 07/05/18 Range/Units 10:16 AST (15-37) U/L CK-MB (CK-2) (0.5-3.6) ng/mL Troponin I 0.05 (0.02-0.05) ng/mL B-Natriuretic Peptide (0-100) pg/mL Coagulation 07/04/18 07/04/18 Range/Units 19:40 19:40 PT 10.7 (9.8-11.6) sec APTT 23.6 L (24.3-30.1) sec B-Natriuretic Peptide 22 (0-100) pg/mL CBC 07/04/18 07/05/18 Range/Units 19:40 02:09 WBC 11.6 H 12.6 H (4.0-11.0) th/mm3 RBC 4.33 4.46 (4.00-5.30) mil/mm3 Hgb 12.5 13.0 (11.6-15.3) gm/dL Hct 37.8 38.9 (35.0-46.0) % Plt Count 240 D 252 (150-450) th/mm3 Neut # (Auto) 8.3 H 8.2 H (1.8-7.7) th/mm3 Lymph # (Auto) 2.4 3.4 (1.0-4.8) th/mm3 Winston # (Auto) 0.6 0.7 (0.0-0.9) th/mm3 Eos # (Auto) 0.2 0.1 (0.0-0.4) th/mm3 Baso # (Auto) 0.1 0.1 (0.0-0.2) th/mm3 Comprehensive Metabolic Panel 07/04/18 07/05/18 Range/Units 19:40 02:09 Sodium 139 140 (136-145) meq/L Potassium 4.6 4.3 (3.5-5.1) meq/L Chloride 106 107 (98-107) meq/L Carbon Dioxide 18.9 L 21.9 (21.0-32.0) meq/L BUN 28 H 27 H (7-18) mg/dL Creatinine 1.90 H 1.82 H (0.50-1.00) mg/dL Calcium 9.1 9.4 (8.5-10.1) mg/dL AST 31 28 (15-37) U/L ALT 42 42 (10-53) U/L Alkaline Phosphatase 62 66 (45-117) U/L Total Protein 7.5 D 7.8 (6.4-8.2) g/dL Albumin 3.5 3.6 (3.4-5.0) g/dL Intake and Output 07/05/18 07/05/18 07/05/18 06:59 14:59 22:59 Intake Total 360 / 360 100 / 100 Output Total 1849 / 1849 Balance -1490 / -1490 100 / 100 Intake: IV 100 / 100 Rocephin Inj 1,000 MG In NS Inj 100 / 100 100 ML @ 200 mls/hr IV.SIG Q24H [facility] Rx#:[id number] Oral 360 / 360 Output: Urine Amount (Catheter) 1849 / 1849 Indwelling Urethral Catheter 900 / 900 Straight 950 / 950 Other: Date of Last Bowel Movement 07/04/18 Weight 66 kg Weight On Admission 66 kg - Imaging and Cardiology Imaging: Impressions Chest X-Ray 07/04/18 19:30 CONCLUSION: Minimal basilar atelectasis or scarring. No effusion or pneumothorax. Assessment and Plan - Assessment (1) Symptomatic bradycardia Code(s): R00.1 - Bradycardia, unspecified Status: Acute (2) Hypertension, uncontrolled Code(s): I10 - Essential (primary) hypertension Status: Acute (3) UTI (urinary tract infection) Code(s): N39.0 - Urinary tract infection, site not specified Status: Acute (4) Renal insufficiency Code(s): N28.9 - Disorder of kidney and ureter, unspecified Status: Acute (5) Elevated troponin I level Code(s): R74.8 - Abnormal levels of other serum enzymes Status: Acute - Plan Echo showed preserved LV systolic function. Continue to monitor on telemetry. No recurrent bradycardia. Continue antihypertensive medications, restart low dose Coreg. Discharge home once blood pressure stabilized. Patient will follow up with Dr. Roa, his primary pharmacy technician per diem, after discharge. The patient was seen and evaluated by Dr. Daly who participated in care, management and decision-making. - Attending Attestation Patient seen and examined. I reviewed and agree with the evaluation and plan as presented. Continue and titrate BP control. Restart low dose carvedilol. F/u w Dr. Roa after discharge.
--- NOTE | 2018-07-06 01:02 | ECG ---
Date Performed: 07/05/2018 Time Performed: 04:31:50 PTAGE: 82 years EKG: Sinus rhythm . Left axis deviation RBBB with left anterior fascicular block LVH with secondary repolarization abno rmality Lateral ST-T changes are probably due to ventricular hypertrophy Abnormal ECG Since the PREVIOUS TRACING , no significant change noted DOCTOR: Matthew Kay Interpretating Date/Time 07/06/2018 01:01:51
[2018-07-06] MEDS: hydrALAZINE 25 MG Tablet PO SCH ×3 (01:36→17:05)
--- NOTE | 2018-07-06 05:15 | XR ---
EXAM DATE: 07/06/2018 5:11 AM EDT AGE/SEX: 82 years / Female INDICATIONS: Shortness of breath, possible pulmonary disease. CLINICAL DATA: This is the patient's subsequent encounter. Patient reports that signs and symptoms h ave been present for 2 days and indicates a pain score of 0/10. MEDICAL/SURGICAL HISTORY: Myocardial infarction. Hypertension. Cardiovascular disease. Cholec ystectomy. Hysterectomy. Coronary artery stent. COMPARISON: [facility] – [place], CHEST 1V SINGLE AP, 07/04/2018. . FINDINGS: Trace left base atelectasis not significantly changed. No pleural effusion seen. No pneumothorax. Heart size stable, within normal limits. CONCLUSION: No significant change. Mild left base atelectasis again noted. Electronically signed by: David Rodriguez MD 07/06/2018 5:13 AM EDT
[2018-07-06] MEDS: Chlorhexidine Gluconate 2% 1 Pack (2 Cloths) TOPICAL SCH (06:10)
[2018-07-06] MEDS: Heparin - SQ 10,000 UNITS/ML Vial SQ SCH ×3 (06:10→23:06)
[2018-07-06 06:18] LABS: Baso # (Auto) 0.1 th/mm3 (0.0-0.2); Baso % (Auto) 0.8 % (0.0-2.0); Eos # (Auto) 0.4 th/mm3 (0.0-0.4); Eos % (Auto) 3.6 % (0.0-4.0); Hematocrit 32.5 % (35.0-46.0); Hemoglobin 10.9 gm/dL (11.6-15.3); Lymph # (Auto) 2.7 th/mm3 (1.0-4.8); Lymph % (Auto) 22.8 % (9.0-44.0); Mean Corpuscular HGB Conc 33.5 % (32.0-36.0); Mean Corpuscular Hemoglobin 29.2 pg (27.0-34.0); Mean Corpuscular Volume 87.2 fL (80.0-100.0); Mean Platelet Volume 7.9 fL (7.0-11.0); Mono # (Auto) 0.7 th/mm3 (0.0-0.9); Mono % (Auto) 6.2 % (0.0-8.0); Neut # (Auto) 7.8 th/mm3 (1.8-7.7); Neut % (Auto) 66.6 % (16.0-70.0); Platelet Count 239 th/mm3 (150-450); Red Blood Count 3.73 mil/mm3 (4.00-5.30); Red Cell Distribution Width 15.6 % (11.6-17.2); White Blood Count 11.8 th/mm3 (4.0-11.0)
[2018-07-06 08:01] LABS: Calcium 8.4 mg/dL (8.5-10.1); Carbon Dioxide 21.4 meq/L (21.0-32.0); Magnesium 2.4 mg/dL (1.5-2.5); Phosphorus 3.5 mg/dL (2.5-4.9); Potassium 4.4 meq/L (3.5-5.1)
[2018-07-06] MEDS: Senna/Docusate Sodium 8.6/50 MG Tablet PO SCH ×2 (09:09→20:04)
[2018-07-06] MEDS: Insulin NovoLOG Aspart Correctional Sugar Inj SQ SCH ×4 (09:10→20:04)
--- NOTE | 2018-07-06 09:46 | P.PNCA ---
Subjective Interval history: Patient is resting in bed, son is at bedside. She denies any chest pain, SOB, or dizzness and reports she is ready to go home. Her only complaint is discomfort from madera cath. Pepe EARL. Per acute care progress note- patient has a past medical history of diabetes, hypertension, coronary artery disease with prior's myocardial infarction and stent in 2017, chronic kidney disease stage III, congestive heart failure who presents to [facility] emergency department with bradycardia. She was recently admitted 07/01/18 for HTN and was discharged earlier today. She had presented with blood pressure up to 218/95. It appears that at the time of that admission she was on carvedilol 3.125 twice daily, Norvasc, and clonidine p.o. and losartan. During her hospitalization she was started on captopril, Procardia 60 mg p.o. daily, torsemide 10 mg p.o. twice daily, and clonidine patch. Norvasc and losartan were discontinued. She was also diagnosed with UTI and treated with Cipro. She was discharged home and had been walking around the house and feeling fine. She decided to go out to a restaurant for dinner and became dizzy and collapsed. When [facility] arrived her heart rate was in the 30s. Reportedly it came up to 60s on its own. She had another episode with heart rate in the "30s " while in the emergency department and was given atropine 0.5 mg IV and glucagon 1 mg IV. Rhythm strip demonstrates 10 seconds of non-conducted p- waves. She is normotensive, but did feel lightheaded during bradycardia. Patient states she has felt some "soreness" in her chest that she attributes to her recent coughing, but says it does not feel similar to prior [place] or angina. Denies n/v/SOB/diaphoresis. Potassium is within normal limits. Medications and Allergies Allergies Allergy/AdvReac Type Severity Reaction Status Date / Time simvastatin Allergy Severe ARMS SWELL Verified 07/03/18 14:58 Home Medications Medication Instructions Recorded Confirmed Type aspirin [Aspir-81] 81 mg PO DAILY 07/01/18 07/01/18 History buspirone 30 mg PO ONCE 07/01/18 07/01/18 History carvedilol [Coreg] 3.125 mg PO BID 07/01/18 07/01/18 History metformin 750 mg PO BID 07/01/18 07/01/18 History Active Medications: Active Medications Al Hydroxide/Mg Hydroxide (Milk Of Magnesia Liq) 30 ml PO Q12H PRN PRN Reason: Mild Constipation Aspirin (Ecotrin) 81 mg PO DAILY [facility] Last Admin: 07/06/18 09:10 Dose: 81 mg Bisacodyl (Dulcolax Supp) 10 mg RECTAL DAILY PRN PRN Reason: SEVERE CONSITIPATION Carvedilol (Coreg) 3.125 mg PO BID [facility] Last Admin: 07/06/18 09:09 Dose: 3.125 mg Chlorhexidine Gluconate (Chlorhexidine 2% Cloth) 3 pack TOPICAL DAILY@0400 [facility] Stop: 07/10/18 03:59 Last Admin: 07/06/18 06:10 Dose: 3 pack Chlorhexidine Gluconate (Chlorhexidine 2% Cloth) 3 pack TOPICAL DAILY@0400 PRN PRN Reason: Extra cloth needed Stop: 07/10/18 03:59 Dextrose (D50w Vial) 50 ml IV.PUSH UNSCH PRN PRN Reason: PER HYPOGLYCEMIA PROTOCOL Glucagon (Glucagon Inj) 1 mg OTHER PRN PRN PRN Reason: for Hypoglycemia Protocol Heparin Sodium (Porcine) (Heparin Inj) 5,000 units SQ Q8HR [facility] Last Admin: 07/06/18 06:10 Dose: 5,000 units Hydralazine HCl (Apresoline Inj) 10 mg IV.PUSH Q1H PRN PRN Reason: Sbp> Or = 170, Dbp> Or = 90 Hydralazine HCl (Apresoline) 50 mg PO Q8H [facility] Last Admin: 07/06/18 09:09 Dose: 50 mg Nicardipine HCl 25 mg/ Sodium (Chloride) 250 mls @ 25 mls/hr IV.CONT TITRATE PRN; Protocol PRN Reason: Per Protocol Ceftriaxone Sodium 1,000 mg/ (Sodium Chloride) 100 mls @ 200 mls/hr IV.SIG Q24H [facility] Last Infusion: 07/05/18 13:35 Dose: Infused Insulin Aspart (Novolog Insulin Correctional Sugar Inj) 0 unit SQ ACHS [facility]; Protocol Last Admin: 07/06/18 09:10 Dose: Not Given Isosorbide Dinitrate (Isordil) 30 mg PO Q8H [facility] Last Admin: 07/06/18 09:09 Dose: 30 mg Lactulose (Lactulose Liq) 30 ml PO DAILY PRN PRN Reason: SEVERE CONSITIPATION Nifedipine (Procardia Xl) 60 mg PO DAILY [facility] Last Admin: 07/06/18 09:09 Dose: 60 mg Ondansetron HCl (Zofran Inj) 4 mg IV.PUSH Q6H PRN PRN Reason: NAUSEA OR VOMITING Last Admin: 07/05/18 11:56 Dose: 4 mg Pantoprazole Sodium (Protonix) 40 mg PO DAILY [facility] Last Admin: 07/06/18 09:09 Dose: 40 mg Prochlorperazine Edisylate (Compazine Inj) 5 mg IV.PUSH Q6H PRN PRN Reason: brekthrough nausea Last Admin: 07/05/18 18:30 Dose: 5 mg Senna/Docusate Sodium (Ashley-Colace) 1 tab PO BID [facility] Last Admin: 07/06/18 09:09 Dose: 1 tab Sennosides (Senokot) 17.2 mg PO Q12H PRN PRN Reason: Moderate Constipation Sodium Chloride (Ns Flush) 2 ml IV.FLUSH BID [facility] Last Admin: 07/06/18 09:10 Dose: 2 ml Sodium Chloride (Ns Flush) 2 ml IV.FLUSH PRN PRN PRN Reason: FLUSH AFTER USING IV ACCESS Physical Exam Vital signs: Vital Signs 07/05/18 10:00 07/05/18 10:01 07/05/18 11:00 Temperature Pulse Rate 96 H 97 H 99 H Respiratory Rate 20 24 20 Blood Pressure 150/65 H 150/65 H 156/72 H Pulse Oximetry 97 96 96 07/05/18 12:00 07/05/18 13:00 07/05/18 13:02 Temperature 98.6 F Pulse Rate 95 H 98 H 99 H Respiratory Rate 26 H 26 H 25 H Blood Pressure 135/67 157/72 H 153/65 H Pulse Oximetry 97 96 96 07/05/18 14:00 07/05/18 15:00 07/05/18 16:00 Temperature Pulse Rate 96 H 103 H 106 H Respiratory Rate 22 23 24 Blood Pressure 136/63 143/67 H 141/64 H Pulse Oximetry 96 96 97 07/05/18 17:00 07/05/18 18:00 07/05/18 19:00 Temperature 98.4 F Pulse Rate 108 H 104 H 106 H Respiratory Rate 23 32 H 26 H Blood Pressure 120/59 L 133/62 129/59 L Pulse Oximetry 96 98 95 07/05/18 20:00 07/05/18 21:00 07/05/18 22:00 Temperature 97.6 F Pulse Rate 109 H 109 H 86 Respiratory Rate 29 H 29 H 20 Blood Pressure 130/60 140/60 130/61 Pulse Oximetry 97 98 97 07/05/18 22:10 07/05/18 23:00 07/06/18 00:00 Temperature Pulse Rate 106 H 95 H Respiratory Rate 18 19 Blood Pressure 141/67 H 133/63 Pulse Oximetry 98 96 95 07/06/18 01:00 07/06/18 02:00 07/06/18 03:00 Temperature Pulse Rate 92 H 103 H 76 Respiratory Rate 21 18 10 L Blood Pressure 168/70 H 105/64 117/58 L Pulse Oximetry 96 95 95 07/06/18 04:00 07/06/18 05:00 07/06/18 06:00 Temperature 98.1 F Pulse Rate 91 H 95 H 80 Respiratory Rate 23 13 21 Blood Pressure 121/57 L 152/68 H 159/70 H Pulse Oximetry 95 96 96 Intake & Output 07/05/18 07/06/18 07/06/18 18:59 06:59 18:59 Intake Total 1075 / 1075 240 / 240 Output Total 775 / 775 550 / 550 Balance 300 / 300 -310 / -310 Weight 67.1 kg Intake: IV 100 / 100 Rocephin Inj 1,000 MG In NS Inj 100 / 100 100 ML @ 200 mls/hr IV.SIG Q24H [facility] Rx#:[id number] Oral 975 / 975 240 / 240 Output: Urine Amount (Catheter) 775 / 775 550 / 550 Indwelling Urethral Catheter 775 / 775 550 / 550 Other: Date of Last Bowel Movement 07/04/18 07/04/18 # Bowel Movements 0 - Constitutional no acute distress - Routine HEENT Exam Head: Present: normocephalic Eye: Present: PERRL, normal accommodation ENT: Present: mucous membranes moist - Routine Neck Exam Present: supple - Routine Respiratory Exam Present: CTA bilaterally - Routine Cardiovascular Exam Present: tachycardia - Routine Abdominal Exam Present: soft - Routine Extremities Exam Comments: no edema - Routine Skin Exam Present: intact - Routine Neurological Exam Present: alert, oriented X3 - Detailed Neurological Exam: Coma Scale Eye Opening: Spontaneous Verbal Response: Oriented Motor Response: Obey commands Riddhi Coma Scale Total: 15 - Routine Psychiatric Exam Present: normal affect - Urinary Catheter Management Straight Cath placed during this visit: no Indwelling Urethral Catheter Cath placed during this visit: yes Reason for continuing: Acute urinary retention Insertion date: 07/05/18 Insertion time: 04:00 Results 07/06/18 04:40 07/06/18 04:40 Cardiac Enzymes 07/04/18 07/04/18 07/05/18 Range/Units 19:40 19:40 02:09 AST 31 28 (15-37) U/L CK-MB (CK-2) 1.3 (0.5-3.6) ng/mL Troponin I 0.08 H 0.11 H (0.02-0.05) ng/mL B-Natriuretic Peptide 22 (0-100) pg/mL 07/05/18 07/05/18 Range/Units 10:16 16:43 AST (15-37) U/L CK-MB (CK-2) (0.5-3.6) ng/mL Troponin I 0.05 0.05 (0.02-0.05) ng/mL B-Natriuretic Peptide (0-100) pg/mL Coagulation 07/04/18 07/04/18 Range/Units 19:40 19:40 PT 10.7 (9.8-11.6) sec APTT 23.6 L (24.3-30.1) sec B-Natriuretic Peptide 22 (0-100) pg/mL CBC 07/04/18 07/05/18 07/06/18 Range/Units 19:40 02:09 04:40 WBC 11.6 H 12.6 H 11.8 H (4.0-11.0) th/mm3 RBC 4.33 4.46 3.73 L (4.00-5.30) mil/mm3 Hgb 12.5 13.0 10.9 L D (11.6-15.3) gm/dL Hct 37.8 38.9 32.5 L (35.0-46.0) % Plt Count 240 D 252 239 (150-450) th/mm3 Neut # (Auto) 8.3 H 8.2 H 7.8 H (1.8-7.7) th/mm3 Lymph # (Auto) 2.4 3.4 2.7 (1.0-4.8) th/mm3 [place] # (Auto) 0.6 0.7 0.7 (0.0-0.9) th/mm3 Eos # (Auto) 0.2 0.1 0.4 (0.0-0.4) th/mm3 Baso # (Auto) 0.1 0.1 0.1 (0.0-0.2) th/mm3 Comprehensive Metabolic Panel 07/04/18 07/05/18 07/06/18 Range/Units 19:40 02:09 04:40 Sodium 139 140 141 (136-145) meq/L Potassium 4.6 4.3 4.4 (3.5-5.1) meq/L Chloride 106 107 108 H (98-107) meq/L Carbon Dioxide 18.9 L 21.9 21.4 (21.0-32.0) meq/L BUN 28 H 27 H 27 H (7-18) mg/dL Creatinine 1.90 H 1.82 H 1.68 H (0.50-1.00) mg/dL Calcium 9.1 9.4 8.4 L D (8.5-10.1) mg/dL AST 31 28 (15-37) U/L ALT 42 42 (10-53) U/L Alkaline Phosphatase 62 66 (45-117) U/L Total Protein 7.5 D 7.8 (6.4-8.2) g/dL Albumin 3.5 3.6 (3.4-5.0) g/dL Intake and Output 07/05/18 07/06/18 07/06/18 22:59 06:59 14:59 Intake Total 975 / 975 240 / 240 Output Total 775 / 775 550 / 550 Balance 200 / 200 -310 / -310 Intake: Oral 975 / 975 240 / 240 Output: Urine Amount (Catheter) 775 / 775 550 / 550 Indwelling Urethral Catheter 775 / 775 550 / 550 Other: Date of Last Bowel Movement 07/04/18 07/04/18 # Bowel Movements 0 Weight 67.1 kg - Imaging and Cardiology Imaging: Impressions Chest X-Ray 07/04/18 19:30 CONCLUSION: Minimal basilar atelectasis or scarring. No effusion or pneumothorax. Chest X-Ray 07/06/18 06:00 CONCLUSION: No significant change. Mild left base atelectasis again noted. Assessment and Plan - Plan Assessment Symptomatic bradycardia Coronary artery disease with prior angioplasty/stent proximal/ostial RCA, mid LAD, distal LAD 05/2017 Dr. Daly. Essential HTN Hyperlipidemia Syncope Patient has history of high-grade AVB requiring temporary pacemaker when she had prior anterior [place] in 2017. Received atropine and glucagon 1 mg IV in the emergency department. Currently tachycardic. SR 101. Continue to monitor on telemetry. We will hold carvedilol 3.125 mg twice daily and clonidine patch 0.2 mg weekly with bradycardia. She denies any chest pain. Troponin elevated 0.11. Will continue to monitor. Blood pressure is elevated this AM, has not received AM meds today, recently started on hydralazine and isosorbide. Orthostatics have been ordered to be placed in chart Recent echo reviewed, preserved EF. Discharge home once blood pressure stabilized. Patient will follow up with Dr. Roa, his primary reforestation worker, after discharge. The patient was seen and evaluated by Dr. Lim who participated in care, management and decision-making. The exam, history, and the medical decision-making described in the above note were completed with the assistance of the mid-level provider. I reviewed and agree with the findings presented. I attest that I had a [id number] encounter with the patient on the same day, and personally performed and documented my assessment and findings in the medical record. Hr better Dr Daly will see in am then further RX as per Dr Roa. Code Status: Full Code Discussed Condition With: Nurse and Son
--- NOTE | 2018-07-06 10:51 | P.PNIM ---
Physical Exam Vital signs: Vital Signs 07/05/18 11:00 07/05/18 12:00 07/05/18 13:00 Temperature 98.6 F Pulse Rate 99 H 95 H 98 H Respiratory Rate 20 26 H 26 H Blood Pressure 156/72 H 135/67 157/72 H Pulse Oximetry 96 97 96 07/05/18 13:02 07/05/18 14:00 07/05/18 15:00 Temperature Pulse Rate 99 H 96 H 103 H Respiratory Rate 25 H 22 23 Blood Pressure 153/65 H 136/63 143/67 H Pulse Oximetry 96 96 96 07/05/18 16:00 07/05/18 17:00 07/05/18 18:00 Temperature 98.4 F Pulse Rate 106 H 108 H 104 H Respiratory Rate 24 23 32 H Blood Pressure 141/64 H 120/59 L 133/62 Pulse Oximetry 97 96 98 07/05/18 19:00 07/05/18 20:00 07/05/18 21:00 Temperature 97.6 F Pulse Rate 106 H 109 H 109 H Respiratory Rate 26 H 29 H 29 H Blood Pressure 129/59 L 130/60 140/60 Pulse Oximetry 95 97 98 07/05/18 22:00 07/05/18 22:10 07/05/18 23:00 Temperature Pulse Rate 86 106 H Respiratory Rate 20 18 Blood Pressure 130/61 141/67 H Pulse Oximetry 97 98 96 07/06/18 00:00 07/06/18 01:00 07/06/18 02:00 Temperature Pulse Rate 95 H 92 H 103 H Respiratory Rate 19 21 18 Blood Pressure 133/63 168/70 H 105/64 Pulse Oximetry 95 96 95 07/06/18 03:00 07/06/18 04:00 07/06/18 05:00 Temperature 98.1 F Pulse Rate 76 91 H 95 H Respiratory Rate 10 L 23 13 Blood Pressure 117/58 L 121/57 L 152/68 H Pulse Oximetry 95 95 96 07/06/18 06:00 Temperature Pulse Rate 80 Respiratory Rate 21 Blood Pressure 159/70 H Pulse Oximetry 96 Intake & Output 07/05/18 07/06/18 07/06/18 18:59 06:59 18:59 Intake Total 1075 / 1075 240 / 240 Output Total 775 / 775 550 / 550 Balance 300 / 300 -310 / -310 Weight 67.1 kg Intake: IV 100 / 100 Rocephin Inj 1,000 MG In NS Inj 100 / 100 100 ML @ 200 mls/hr IV.SIG Q24H [facility] Rx#:[id number] Oral 975 / 975 240 / 240 Output: Urine Amount (Catheter) 775 / 775 550 / 550 Indwelling Urethral Catheter 775 / 775 550 / 550 Other: Date of Last Bowel Movement 07/04/18 07/04/18 # Bowel Movements 0 Narrative: General patient in no acute distress HEENT extraocular movements are intact, clear oropharyngeal mucosa, no JVD Cardiovascular S1-S2 audible, RRR, no murmurs rubs or gallops Respiratory clear to auscultation bilaterally Abdomen soft, nontender, nondistended, normal bowel sounds Extremities no edema 2+ distal pulses in bilateral upper and lower extremities Neuro cranial nerves II through XII intact - Urinary Catheter Management Straight Cath placed during this visit: no Indwelling Urethral Catheter Cath placed during this visit: yes Reason for continuing: Acute urinary retention Insertion date: 07/05/18 Insertion time: 04:00 Results - Labs CBC & Chem 7: 07/06/18 04:40 07/06/18 04:40 Laboratory Results - last 24 hr 07/05/18 07/05/18 07/05/18 10:16 11:54 15:10 WBC RBC Hgb Hct MCV MCH MCHC RDW Plt Count MPV Neut % (Auto) Lymph % (Auto) [place] % (Auto) Eos % (Auto) Baso % (Auto) Neut # (Auto) Lymph # (Auto) [place] # (Auto) Eos # (Auto) Baso # (Auto) WBC Differential Differential Comment Sodium Potassium Chloride Carbon Dioxide Anion Gap BUN Creatinine Estimated GFR POC Glucose 193 H Random Glucose Calcium Phosphorus Magnesium Troponin I 0.05 Urine Color Yellow Urine Clarity Hazy H Urine pH 5.0 Ur Specific [place] 1.016 Urine Protein 500 or greater Urine Glucose (UA) Negative Urine Ketones Negative Urine Occult Blood Negative Urine Nitrate Negative Urine Bilirubin Negative Urine Urobilinogen Less than 2 Ur Leukocyte Esterase Small H Urine WBC 29 H Ur Squamous Epith Cells 1 Hyaline Casts 1 Micro UA Comment Cath-culture ind Ur Microscopic Review Not Reportable Urine Culture Comments Cath-cult indicated 07/05/18 07/05/18 07/05/18 16:43 17:18 20:24 WBC RBC Hgb Hct MCV MCH MCHC RDW Plt Count MPV Neut % (Auto) Lymph % (Auto) [place] % (Auto) Eos % (Auto) Baso % (Auto) Neut # (Auto) Lymph # (Auto) [place] # (Auto) Eos # (Auto) Baso # (Auto) WBC Differential Differential Comment Sodium Potassium Chloride Carbon Dioxide Anion Gap BUN Creatinine Estimated GFR POC Glucose 178 H 238 H Random Glucose Calcium Phosphorus Magnesium Troponin I 0.05 Urine Color Urine Clarity Urine pH Ur Specific [place] Urine Protein Urine Glucose (UA) Urine Ketones Urine Occult Blood Urine Nitrate Urine Bilirubin Urine Urobilinogen Ur Leukocyte Esterase Urine WBC Ur Squamous Epith Cells Hyaline Casts Micro UA Comment Ur Microscopic Review Urine Culture Comments 07/06/18 07/06/18 07/06/18 04:40 04:40 08:28 WBC 11.8 H RBC 3.73 L Hgb 10.9 L D Hct 32.5 L MCV 87.2 MCH 29.2 MCHC 33.5 RDW 15.6 Plt Count 239 MPV 7.9 Neut % (Auto) 66.6 Lymph % (Auto) 22.8 [place] % (Auto) 6.2 Eos % (Auto) 3.6 Baso % (Auto) 0.8 Neut # (Auto) 7.8 H Lymph # (Auto) 2.7 [place] # (Auto) 0.7 Eos # (Auto) 0.4 Baso # (Auto) 0.1 WBC Differential . Differential Comment Auto diff final Sodium 141 Potassium 4.4 Chloride 108 H Carbon Dioxide 21.4 Anion Gap 12 BUN 27 H Creatinine 1.68 H Estimated GFR 29 L POC Glucose 162 H Random Glucose 150 H Calcium 8.4 L D Phosphorus 3.5 Magnesium 2.4 Troponin I Urine Color Urine Clarity Urine pH Ur Specific [place] Urine Protein Urine Glucose (UA) Urine Ketones Urine Occult Blood Urine Nitrate Urine Bilirubin Urine Urobilinogen Ur Leukocyte Esterase Urine WBC Ur Squamous Epith Cells Hyaline Casts Micro UA Comment Ur Microscopic Review Urine Culture Comments - Imaging Impressions Chest X-Ray 07/06/18 06:00 CONCLUSION: No significant change. Mild left base atelectasis again noted. Assessment and Plan - Plan This patient is an 82-year-old female with a diagnosis of hypertension diabetes mellitus, chronic kidney disease stage III, congestive heart failure with preserved ejection fraction, coronary artery disease status post [place] and stent placement in 2017. 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 The patient was admitted after presenting to the emergency department with a presyncopal episode. She was found to have high blood pressure and was also bradycardic with a blood pressure in the 30s as per documentation. 1. Symptomatic bradycardia 2. Hypertension As mentioned above the patient presented with symptomatic bradycardia. The patient was on a beta-faustino which likely contributed to her symptomatic bradycardia. In the emergency department her heart rate was in the 30s. She was given atropine and her heart rate subsequently improved. The patient was monitored in the intensive care unit. Cardiology was consulted to evaluate the patient. Recommendations were to hold the patient's beta-faustino and continue to monitor her on telemetry. Her heart rate is currently in the 80s. We will continue to monitor her on telemetry. Will follow up with cardiology for further recommendations. Her systolic blood pressure is currently around 140. Her blood pressure medication regimen will be adjusted as needed. We will continue to avoid AV marcellus blocking agents. 3. Elevated troponins She also had an elevation in her troponin of 0.8, subsequent troponin is 0.11. I have not ordered another set of troponins to monitor the trend of the troponin elevation. EKG shows sinus rhythm, left axis deviation, RBBB, with a questionable T-wave inversions in the lateral leads. These changes are similar to previous EKGs that are documented in chart. She currently does not have any complaints of chest pain. Cardiology is following. Continue aspirin. No statin as the patient is allergic. No beta-faustino due to symptomatic bradycardia. 4. UTI Grown Klebsiella, patient received Cipro and has completed treatment. 5. Diabetes mellitus type 2 Continue low-dose insulin sliding scale. This patient's medication regimen for diabetes will be adjusted as needed.
[2018-07-06 12:38] LABS: Troponin I 0.03 ng/mL (0.02-0.05)
--- NOTE | 2018-07-06 13:03 | ECG ---
Date Performed: 07/04/2018 Time Performed: 23:22:15 PTAGE: 82 years EKG: Sinus rhythm WITH SINUS ARRHYTHMIA RIGHT BUNDLE BRANCH BLOCK LEFT ANTERIOR FASCICULAR BLOCK LEFT VENTRICULAR HYPE RTROPHY AND ST-T CHANGE ABNORMAL ECG PREVIOUS TRACING : 07/04/2018 19.27 Since the previous tracing, no significant change noted DOCTOR: Matthew Kay Interpretating Date/Time 07/06/2018 13:01:39
--- NOTE | 2018-07-06 13:12 | ECG ---
Date Performed: 07/04/2018 Time Performed: 19:27:07 PTAGE: 82 years EKG: Sinus rhythm INCOMPLETE RIGHT BUNDLE BRANCH BLOCK LEFT ANTERIOR FASCICULAR BLOCK POSSIBLE LEFT VENTRICULAR HYPERT ROPHY LATERAL MYOCARDIAL INFARCTION ABNORMAL ECG INTERPRETATION BASED ON A DEFAULT AGE OF 42 YEARS PREVIOUS TRACING : 07/01/2018 05.48 Since the previous tracing, no significant change not ed DOCTOR: Matthew Kay Interpretating Date/Time 07/06/2018 13:11:11
[2018-07-06] MEDS: Acetaminophen 325 MG Tablet PO PRN (23:14)
[2018-07-07] MEDS: hydrALAZINE 25 MG Tablet PO SCH ×3 (00:11→17:20)
[2018-07-07] MEDS: Chlorhexidine Gluconate 2% 1 Pack (2 Cloths) TOPICAL SCH (03:54)
[2018-07-07] MEDS: Heparin - SQ 10,000 UNITS/ML Vial SQ SCH ×3 (05:04→22:13)
[2018-07-07] MEDS: Senna/Docusate Sodium 8.6/50 MG Tablet PO SCH ×2 (08:25→20:34)
--- NOTE | 2018-07-07 09:14 | P.PNCA ---
Subjective Interval history: Patient sitting up in bed eating breakfast. she denies any chest pain, dizziness or syncope. Admits to cough, reports having pneumonia recently. Will order chest xray. BP elevated this AM, has not recieved AM med. HR [id number]. No bradycardia noted. Medications and Allergies Allergies Allergy/AdvReac Type Severity Reaction Status Date / Time simvastatin Allergy Severe ARMS SWELL Verified 07/03/18 14:58 Home Medications Medication Instructions Recorded Confirmed Type aspirin [Aspir-81] 81 mg PO DAILY 07/01/18 07/01/18 History buspirone 30 mg PO ONCE 07/01/18 07/01/18 History carvedilol [Coreg] 3.125 mg PO BID 07/01/18 07/01/18 History metformin 750 mg PO BID 07/01/18 07/01/18 History Active Medications: Active Medications Acetaminophen (Tylenol) 650 mg PO Q4H PRN PRN Reason: fever > 100.4/pain 1-10 Last Admin: 07/06/18 23:14 Dose: 650 mg Al Hydroxide/Mg Hydroxide (Milk Of Genapsyskiarra Mock) 30 ml PO Q12H PRN PRN Reason: Mild Constipation Aspirin (Ecotrin) 81 mg PO DAILY [facility] Last Admin: 07/07/18 08:25 Dose: 81 mg Bisacodyl (Dulcolax Supp) 10 mg RECTAL DAILY PRN PRN Reason: SEVERE CONSITIPATION Carvedilol (Coreg) 3.125 mg PO BID [facility] Last Admin: 07/07/18 08:25 Dose: 3.125 mg Chlorhexidine Gluconate (Chlorhexidine 2% Cloth) 3 pack TOPICAL DAILY@0400 [facility] Stop: 07/10/18 03:59 Last Admin: 07/07/18 03:54 Dose: 3 pack Chlorhexidine Gluconate (Chlorhexidine 2% Cloth) 3 pack TOPICAL DAILY@0400 PRN PRN Reason: Extra cloth needed Stop: 07/10/18 03:59 Dextrose (D50w Vial) 50 ml IV.PUSH UNSCH PRN PRN Reason: PER HYPOGLYCEMIA PROTOCOL Glucagon (Glucagon Inj) 1 mg OTHER PRN PRN PRN Reason: for Hypoglycemia Protocol Heparin Sodium (Porcine) (Heparin Inj) 5,000 units SQ Q8HR [facility] Last Admin: 07/07/18 05:04 Dose: 5,000 units Hydralazine HCl (Apresoline Inj) 10 mg IV.PUSH Q1H PRN PRN Reason: Sbp> Or = 170, Dbp> Or = 90 Hydralazine HCl (Apresoline) 50 mg PO Q8H [facility] Last Admin: 07/07/18 08:25 Dose: 50 mg Nicardipine HCl 25 mg/ Sodium (Chloride) 250 mls @ 25 mls/hr IV.CONT TITRATE PRN; Protocol PRN Reason: Per Protocol Ceftriaxone Sodium 1,000 mg/ (Sodium Chloride) 100 mls @ 200 mls/hr IV.SIG Q24H [facility] Last Infusion: 07/06/18 12:30 Dose: Infused Insulin Aspart (Novolog Insulin Correctional Sugar Inj) 0 unit SQ ACHS [facility]; Protocol Last Admin: 07/06/18 20:04 Dose: 3 unit Isosorbide Dinitrate (Isordil) 30 mg PO Q8H [facility] Last Admin: 07/07/18 08:25 Dose: 30 mg Lactulose (Lactulose Liq) 30 ml PO DAILY PRN PRN Reason: SEVERE CONSITIPATION Nifedipine (Procardia Xl) 60 mg PO DAILY [facility] Last Admin: 07/07/18 08:25 Dose: 60 mg Ondansetron HCl (Zofran Inj) 4 mg IV.PUSH Q6H PRN PRN Reason: NAUSEA OR VOMITING Last Admin: 07/06/18 20:02 Dose: 4 mg Pantoprazole Sodium (Protonix) 40 mg PO DAILY [facility] Last Admin: 07/07/18 08:25 Dose: 40 mg Prochlorperazine Edisylate (Compazine Inj) 5 mg IV.PUSH Q6H PRN PRN Reason: brekthrough nausea Last Admin: 07/05/18 18:30 Dose: 5 mg Senna/Docusate Sodium (Ashley-Colace) 1 tab PO BID [facility] Last Admin: 07/07/18 08:25 Dose: 1 tab Sennosides (Senokot) 17.2 mg PO Q12H PRN PRN Reason: Moderate Constipation Sodium Chloride (Ns Flush) 2 ml IV.FLUSH BID [facility] Last Admin: 07/07/18 08:25 Dose: 2 ml Sodium Chloride (Ns Flush) 2 ml IV.FLUSH PRN PRN PRN Reason: FLUSH AFTER USING IV ACCESS Physical Exam Vital signs: Vital Signs 07/06/18 10:00 09/22/18 11:00 07/06/18 12:00 Temperature 98.4 F Pulse Rate 104 H 88 93 H Respiratory Rate 17 18 18 Blood Pressure 114/61 159/68 H 145/66 H Pulse Oximetry 98 99 99 07/06/18 13:00 07/06/18 14:00 07/06/18 15:00 Temperature 98.7 F Pulse Rate 88 94 H 86 Respiratory Rate 17 18 18 Blood Pressure 145/71 H 172/73 H 149/72 H Pulse Oximetry 98 96 97 07/06/18 16:00 07/06/18 17:00 07/06/18 18:00 Temperature Pulse Rate 85 105 H 101 H Respiratory Rate 17 18 18 Blood Pressure 178/76 H 187/88 H 159/70 H Pulse Oximetry 98 98 97 07/06/18 19:00 07/06/18 19:10 07/06/18 20:00 Temperature 98.5 F Pulse Rate 99 H 103 H Respiratory Rate 18 18 Blood Pressure 170/77 H 169/82 H Pulse Oximetry 97 98 99 07/06/18 21:00 07/06/18 22:00 07/06/18 23:00 Temperature Pulse Rate 102 H 94 H 100 H Respiratory Rate 22 21 20 Blood Pressure 176/77 H 162/70 H 164/72 H Pulse Oximetry 99 96 97 07/07/18 00:00 07/07/18 00:11 07/07/18 01:00 Temperature 98.6 F Pulse Rate 94 H 109 H Respiratory Rate 24 18 22 Blood Pressure 181/75 H 144/67 H Pulse Oximetry 97 97 07/07/18 02:00 07/07/18 03:00 07/07/18 04:00 Temperature 98.7 F Pulse Rate 101 H 91 H 92 H Respiratory Rate 21 22 22 Blood Pressure 120/57 L 120/57 L 142/61 H Pulse Oximetry 96 96 95 07/07/18 05:00 07/07/18 06:00 Temperature Pulse Rate 98 H 92 H Respiratory Rate 15 19 Blood Pressure 162/70 H 155/68 H Pulse Oximetry 97 93 L Intake & Output 07/06/18 07/07/18 07/07/18 18:59 06:59 18:59 Intake Total 850 / 850 480 / 480 Output Total 1100 / 1100 800 / 800 Balance -250 / -250 -320 / -320 Weight 66.2 kg Intake: IV 100 / 100 Rocephin Inj 1,000 MG In NS Inj 100 / 100 100 ML @ 200 mls/hr IV.SIG Q24H [facility] Rx#:[id number] Oral 750 / 750 480 / 480 Output: Urine 650 / 650 800 / 800 Urine Amount (Catheter) 450 / 450 Indwelling Urethral Catheter 450 / 450 Other: Date of Last Bowel Movement 07/04/18 07/04/18 # Bowel Movements 0 0 - Constitutional no acute distress - Routine HEENT Exam Head: Present: normocephalic, atraumatic Eye: Present: PERRL, normal accommodation ENT: Present: mucous membranes moist - Routine Neck Exam Present: supple - Routine Respiratory Exam Present: crackles - Routine Cardiovascular Exam Present: tachycardia - Routine Abdominal Exam Present: soft - Routine Extremities Exam Present: cyanosis - Routine Skin Exam Present: intact - Routine Neurological Exam Present: alert, oriented X3 - Detailed Neurological Exam: Coma Scale Eye Opening: Spontaneous Verbal Response: Oriented Motor Response: Obey commands Riddhi Coma Scale Total: 15 - Routine Psychiatric Exam Present: normal affect - Urinary Catheter Management Straight Cath placed during this visit: no Indwelling Urethral Catheter Cath placed during this visit: yes, but has since been removed by the nurse Reason for continuing: Continue criteria not met Insertion date: 07/05/18 Insertion time: 04:00 Removal date: 07/06/18 Removal time: 13:30 Results 07/06/18 04:40 07/06/18 04:40 Cardiac Enzymes 07/05/18 07/05/18 07/06/18 Range/Units 10:16 16:43 11:21 Troponin I 0.05 0.05 0.03 (0.02-0.05) ng/mL CBC 07/06/18 Range/Units 04:40 WBC 11.8 H (4.0-11.0) th/mm3 RBC 3.73 L (4.00-5.30) mil/mm3 Hgb 10.9 L D (11.6-15.3) gm/dL Hct 32.5 L (35.0-46.0) % Plt Count 239 (150-450) th/mm3 Neut # (Auto) 7.8 H (1.8-7.7) th/mm3 Lymph # (Auto) 2.7 (1.0-4.8) th/mm3 Dewitt # (Auto) 0.7 (0.0-0.9) th/mm3 Eos # (Auto) 0.4 (0.0-0.4) th/mm3 Baso # (Auto) 0.1 (0.0-0.2) th/mm3 Comprehensive Metabolic Panel 07/06/18 Range/Units 04:40 Sodium 141 (136-145) meq/L Potassium 4.4 (3.5-5.1) meq/L Chloride 108 H (98-107) meq/L Carbon Dioxide 21.4 (21.0-32.0) meq/L BUN 27 H (7-18) mg/dL Creatinine 1.68 H (0.50-1.00) mg/dL Calcium 8.4 L D (8.5-10.1) mg/dL Intake and Output 07/06/18 07/07/18 07/07/18 22:59 06:59 14:59 Intake Total 750 / 750 480 / 480 Output Total 650 / 650 800 / 800 Balance 100 / 100 -320 / -320 Intake: Oral 750 / 750 480 / 480 Output: Urine 650 / 650 800 / 800 Other: Date of Last Bowel Movement 07/04/18 07/04/18 # Bowel Movements 0 0 Weight 66.2 kg - Imaging and Cardiology Imaging: Impressions Chest X-Ray 07/06/18 06:00 CONCLUSION: No significant change. Mild left base atelectasis again noted. Assessment and Plan - Plan Assessment Symptomatic bradycardia Coronary artery disease with prior angioplasty/stent proximal/ostial RCA, mid LAD, distal LAD 05/2017 Dr. Daly. Essential HTN Hyperlipidemia Syncope -Patient has history of high-grade AVB requiring temporary pacemaker when she had prior anterior IA in 2017. Received atropine and glucagon 1 mg IV in the emergency department. Currently tachycardic. SR 98. Continue to monitor on telemetry. She has been back on Coreg 3.125mg BID for 2 days, no bradycardia noted. -She denies any chest pain. Troponin elevated 0.11. Will continue to monitor. -Blood pressure is elevated this AM, has not received AM meds today, recently started on hydralazine and isosorbide. May consider adding jose c inhibitor if BP continues to be elevated. -Orthostatics have been ordered to be placed in chart -Recent echo reviewed, preserved EF. Cough noted this AM, reports of recent pneumonia, crackles noted in bilateral bases, will order repat chest xray. -Spoke with Dr. Menendez last night, he had concerns about possible nav-tachy syndrome requiring pacemaker placement. At this time patient is stable, no further bradycardia noted. Will continues on BB and monitor closely. Discharge home once blood pressure stabilized. Patient will follow up with Dr. Roa, her primary pbx mechanic after discharge for out patient electronic device monitor and further workup. The patient was seen and evaluated by Dr. Lim who participated in care, management and decision-making. The exam, history, and the medical decision-making described in the above note were completed with the assistance of the mid-level provider. I reviewed and agree with the findings presented. I attest that I had a [id number] encounter with the patient on the same day, and personally performed and documented my assessment and findings in the medical record. at this point hr is controlled Dr Roopa ash see in am, does not need pacer at this time. Code Status: Full code Discussed Condition With: Nurse
--- NOTE | 2018-07-07 09:41 | XR ---
EXAM DATE: 07/07/2018 9:37 AM EDT AGE/SEX: 82 years / Female INDICATIONS: Cough CLINICAL DATA: This is the patient's subsequent encounter. Patient reports that signs and symptoms h ave been present for 4 - 6 days and indicates a pain score of 0/10. MEDICAL/SURGICAL HISTORY: . Myocardial infarction. Hypertension. Cardiovascular disease. . Ch olecystectomy. Hysterectomy. Coronary artery stent [place] [facility] [place]. . FINDINGS: A single AP view of the chest demonstrates the lungs to be symmetrically aerated without evidence of mass, infiltrate or effusion. Mild prominence the cardiac silhouette. Osseous structures are intact. CONCLUSION: Mild compensated cardiomegaly. Electronically signed by: Edgar Mitchell MD 07/07/2018 9:40 AM EDT
[2018-07-07] MEDS: Insulin NovoLOG Aspart Correctional Sugar Inj SQ SCH ×4 (10:54→20:35)
--- NOTE | 2018-07-07 11:03 | P.PNIM ---
Subjective Interval history: Patient is sitting upright in bed. She does not have any complaints today. Physical Exam Vital signs: Vital Signs 07/06/18 12:00 07/06/18 13:00 07/06/18 14:00 Temperature 98.4 F 98.7 F Pulse Rate 93 H 88 94 H Respiratory Rate 18 17 18 Blood Pressure 145/66 H 145/71 H 172/73 H Pulse Oximetry 99 98 96 07/06/18 15:00 07/06/18 16:00 07/06/18 17:00 Temperature Pulse Rate 86 85 105 H Respiratory Rate 18 17 18 Blood Pressure 149/72 H 178/76 H 187/88 H Pulse Oximetry 97 98 98 07/06/18 18:00 07/06/18 19:00 07/06/18 19:10 Temperature Pulse Rate 101 H 99 H Respiratory Rate 18 18 Blood Pressure 159/70 H 170/77 H Pulse Oximetry 97 97 98 07/06/18 20:00 07/06/18 21:00 07/06/18 22:00 Temperature 98.5 F Pulse Rate 103 H 102 H 94 H Respiratory Rate 18 22 21 Blood Pressure 169/82 H 176/77 H 162/70 H Pulse Oximetry 99 99 96 07/06/18 23:00 07/07/18 00:00 07/07/18 00:11 Temperature 98.6 F Pulse Rate 100 H 94 H Respiratory Rate 20 24 18 Blood Pressure 164/72 H 181/75 H Pulse Oximetry 97 97 07/07/18 01:00 07/07/18 02:00 07/07/18 03:00 Temperature Pulse Rate 109 H 101 H 91 H Respiratory Rate 22 21 22 Blood Pressure 144/67 H 120/57 L 120/57 L Pulse Oximetry 97 96 96 07/07/18 04:00 07/07/18 05:00 07/07/18 06:00 Temperature 98.7 F Pulse Rate 92 H 98 H 92 H Respiratory Rate 22 15 19 Blood Pressure 142/61 H 162/70 H 155/68 H Pulse Oximetry 95 97 93 L Intake & Output 07/06/18 07/07/18 07/07/18 18:59 06:59 18:59 Intake Total 850 / 850 480 / 480 Output Total 1100 / 1100 800 / 800 Balance -250 / -250 -320 / -320 Weight 66.2 kg Intake: IV 100 / 100 Rocephin Inj 1,000 MG In NS Inj 100 / 100 100 ML @ 200 mls/hr IV.SIG Q24H [facility] Rx#:[id number] Oral 750 / 750 480 / 480 Output: Urine 650 / 650 800 / 800 Urine Amount (Catheter) 450 / 450 Indwelling Urethral Catheter 450 / 450 Other: Date of Last Bowel Movement 07/04/18 07/04/18 # Bowel Movements 0 0 Narrative: General patient in no acute distress HEENT extraocular movements are intact, clear oropharyngeal mucosa, no JVD Cardiovascular S1-S2 audible, RRR, no murmurs rubs or gallops Respiratory clear to auscultation bilaterally Abdomen soft, nontender, nondistended, normal bowel sounds Extremities no edema 2+ distal pulses in bilateral upper and lower extremities Neuro cranial nerves II through XII intact - Urinary Catheter Management Straight Cath placed during this visit: no Indwelling Urethral Catheter Cath placed during this visit: yes, but has since been removed by the nurse Reason for continuing: Continue criteria not met Insertion date: 07/05/18 Insertion time: 04:00 Removal date: 07/06/18 Removal time: 13:30 Results - Labs CBC & Chem 7: 07/06/18 04:40 07/06/18 04:40 Laboratory Results - last 24 hr 07/06/18 07/06/18 07/06/18 11:21 11:59 17:08 POC Glucose 255 H 135 H Total Creatine Kinase 55 Troponin I 0.03 07/06/18 07/07/18 20:01 08:24 POC Glucose 220 H 159 H Total Creatine Kinase Troponin I Microbiology 07/05/18 15:10 Clean Catch Urine Urine Culture - Final No growth in 48 hours - Imaging Impressions Chest X-Ray 07/07/18 00:00 CONCLUSION: Mild compensated cardiomegaly. Assessment and Plan - Plan This patient is an 82-year-old female with a diagnosis of hypertension diabetes mellitus, chronic kidney disease stage III, congestive heart failure with preserved ejection fraction, coronary artery disease status post [place] and stent placement in 2017. As per documentation, the patient also had a temporary pacemaker placed in the past because of AV conduction delay as per documentation. The patient was admitted after presenting to the emergency department with a presyncopal episode. She was found to have high blood pressure and was also bradycardic with a blood pressure in the 30s as per documentation. 1. Symptomatic bradycardia 2. Hypertension As mentioned above the patient presented with symptomatic bradycardia. The patient was on a beta-faustino which likely contributed to her symptomatic bradycardia. In the emergency department her heart rate was in the 30s. She was given atropine and her heart rate subsequently improved. The patient's heart rate is currently in the low 100s. Cardia. The telemetry was reviewed and there are no significant events noted on telemetry. Cardiology is following the patient and recommends continuing the beta-faustino which the patient has been on since yesterday. We will continue to follow cardiology recommendations. She is hypertensive. Her medication regimen will be adjusted as needed. If her blood pressure is stable, and she does not have any further bradycardic episodes tomorrow she can be discharged home. Continue to monitor on telemetry. 3. Elevated troponins She also had an elevation in her troponin of 0.8, subsequent troponin is 0.11. Continue to monitor. EKG shows sinus rhythm, left axis deviation, RBBB, with a questionable T-wave inversions in the lateral leads. These changes are similar to previous EKGs that are documented in chart. She currently does not have any complaints of chest pain. Cardiology is following. Continue aspirin. No statin as the patient is allergic. Continue beta-faustino as per cardiology recommendations. 4. UTI Grown Klebsiella, patient received Cipro and has completed treatment. 5. Diabetes mellitus type 2 Continue low-dose insulin sliding scale. This patient's medication regimen for diabetes will be adjusted as needed.
[2018-07-07] MEDS: Acetaminophen 325 MG Tablet PO PRN ×2 (11:13→20:34)
[2018-07-08] MEDS: hydrALAZINE 25 MG Tablet PO SCH ×3 (00:05→16:16)
[2018-07-08] MEDS: Chlorhexidine Gluconate 2% 1 Pack (2 Cloths) TOPICAL SCH (04:58)
[2018-07-08] MEDS: Heparin - SQ 10,000 UNITS/ML Vial SQ SCH ×3 (05:00→22:13)
[2018-07-08] MEDS: Insulin NovoLOG Aspart Correctional Sugar Inj SQ SCH ×4 (08:03→20:45)
[2018-07-08] MEDS: Senna/Docusate Sodium 8.6/50 MG Tablet PO SCH ×2 (08:09→20:39)
--- NOTE | 2018-07-08 09:45 | P.PNIM ---
Subjective Interval history: Patient reports constipation today. No abdominal pain. She tried laxatives and stool softeners without improvement. She endorsed mild nausea. Physical Exam Vital signs: Vital Signs 07/07/18 10:00 07/07/18 11:00 07/07/18 12:00 Temperature 98.3 F Pulse Rate 96 H 90 79 Respiratory Rate 17 16 17 Blood Pressure 125/59 L 128/62 105/53 L Pulse Oximetry 100 98 100 07/07/18 13:00 07/07/18 14:00 07/07/18 15:00 Temperature Pulse Rate 97 H 94 H 89 Respiratory Rate 18 18 17 Blood Pressure 115/56 L 124/57 L 132/61 Pulse Oximetry 99 99 98 07/07/18 16:00 07/07/18 17:00 07/07/18 18:00 Temperature 98.4 F Pulse Rate 91 H 97 H 100 H Respiratory Rate 18 17 18 Blood Pressure 141/63 H 156/70 H 116/57 L Pulse Oximetry 97 98 97 07/07/18 19:00 07/07/18 19:10 07/07/18 20:00 Temperature 98.2 F 98.2 F Pulse Rate 98 H 96 H Respiratory Rate 16 18 Blood Pressure 132/60 145/65 H Pulse Oximetry 97 97 97 07/07/18 21:00 07/07/18 22:00 07/07/18 22:12 Temperature 98.2 F 98.2 F Pulse Rate 95 H 96 H Respiratory Rate 14 16 18 Blood Pressure 133/63 128/73 Pulse Oximetry 99 97 07/08/18 00:00 07/08/18 04:00 07/08/18 07:34 Temperature 98 F 98.3 F Pulse Rate 86 86 Respiratory Rate 16 14 Blood Pressure 147/67 H 134/59 L Pulse Oximetry 98 98 97 07/08/18 08:00 07/08/18 09:00 Temperature 98.0 F 98.0 F Pulse Rate 87 85 Respiratory Rate 14 14 Blood Pressure 140/76 115/57 L Pulse Oximetry 97 97 Intake & Output 07/07/18 07/08/18 07/08/18 18:59 06:59 18:59 Intake Total 1060 / 1060 240 / 240 Output Total 750 / 750 900 / 900 Balance 310 / 310 -660 / -660 Weight 67.8 kg Intake: IV 100 / 100 Rocephin Inj 1,000 MG In NS Inj 100 / 100 100 ML @ 200 mls/hr IV.SIG Q24H [facility] Rx#:[id number] Oral 960 / 960 240 / 240 Output: Urine 750 / 750 900 / 900 Other: Date of Last Bowel Movement 07/04/18 07/04/18 07/04/18 # Bowel Movements 0 0 Narrative: General patient in no acute distress HEENT extraocular movements are intact, clear oropharyngeal mucosa, no JVD Cardiovascular S1-S2 audible, RRR, no murmurs rubs or gallops Respiratory clear to auscultation bilaterally Abdomen soft, nontender, nondistended, normal bowel sounds Extremities no edema 2+ distal pulses in bilateral upper and lower extremities - Urinary Catheter Management Straight Cath placed during this visit: no Indwelling Urethral Catheter Cath placed during this visit: yes, but has since been removed by the nurse Reason for continuing: Continue criteria not met Insertion date: 07/05/18 Insertion time: 04:00 Removal date: 07/06/18 Removal time: 13:30 Results - Labs CBC & Chem 7: 07/06/18 04:40 07/06/18 04:40 Laboratory Results - last 24 hr 07/07/18 07/07/18 07/07/18 12:20 13:04 17:36 POC Glucose 229 H 203 H Troponin I 0.02 07/07/18 07/08/18 20:18 07:31 POC Glucose 191 H 187 H Troponin I Microbiology 07/05/18 15:10 Clean Catch Urine Urine Culture - Final No growth in 48 hours Assessment and Plan - Plan 82-year-old female with a diagnosis of hypertension diabetes mellitus, chronic kidney disease stage III, congestive heart failure with preserved ejection fraction, coronary artery disease status post [place] and stent placement in 2017. As per documentation, the patient also had a temporary pacemaker placed in the past because of AV conduction delay as per documentation. The patient was admitted after presenting to the emergency department with a presyncopal episode. She was found to have high blood pressure and was also bradycardic with a blood pressure in the 30s as per documentation. 1. Symptomatic bradycardia 2. Hypertension As mentioned above the patient presented with symptomatic bradycardia. In the emergency department her heart rate was in the 30s. She was given atropine and her heart rate subsequently improved. The patient's beta-faustino initially held. Seen by cardiology. Beta-faustino was started. Heart rate has been normal. Blood pressure better controlled. Continue antihypertensives. 3. Elevated troponins She also had an elevation in her troponin of 0.8, subsequent troponin is 0.11. Continue to monitor. EKG shows sinus rhythm, left axis deviation, RBBB, with a questionable T-wave inversions in the lateral leads. These changes are similar to previous EKGs that are documented in chart. Cardiology is following. Continue aspirin. No statin as the patient is allergic. Continue beta-faustino as per cardiology recommendations. 4. UTI Grown Klebsiella, patient received Cipro and has completed treatment. 5. Diabetes mellitus type 2 Continue low-dose insulin sliding scale. This patient's medication regimen for diabetes will be adjusted as needed. 6. Constipation and nausea: -Abdominal exam benign. No response with laxatives and stool softeners. Will try enema. Medicine continue to monitor. If no improvement, will consider imaging. Discharge Planning: Transfer to the medical floor. Possible discharge in the next 24-48 hours pending clinical improvement.
[2018-07-08] MEDS ORDERED: Sod Phosphate/Sod Biphosphate (Adult) Enema 133 ML Bottle RECTAL ONE (11:00)
--- NOTE | 2018-07-08 15:27 | P.PNCA ---
Subjective Interval history: Patient denies any chest pain, pressure, palpitations, dizziness, edema or shortness of breath. Patient does complain of constipation and spitting up bile. Patient states that she feels that if she could get up and walk around more; this would greatly improve the current situation. Medications and Allergies Allergies Allergy/AdvReac Type Severity Reaction Status Date / Time simvastatin Allergy Severe ARMS SWELL Verified 07/03/18 14:58 Home Medications Medication Instructions Recorded Confirmed Type aspirin [Aspir-81] 81 mg PO DAILY 07/01/18 07/01/18 History buspirone 30 mg PO ONCE 07/01/18 07/01/18 History carvedilol [Coreg] 3.125 mg PO BID 07/01/18 07/01/18 History metformin 750 mg PO BID 07/01/18 07/01/18 History Active Medications: Active Medications Acetaminophen (Tylenol) 650 mg PO Q4H PRN PRN Reason: fever > 100.4/pain 1-10 Last Admin: 07/07/18 20:34 Dose: 650 mg Al Hydroxide/Mg Hydroxide (Milk Of Vashti Mock) 30 ml PO Q12H PRN PRN Reason: Mild Constipation Last Admin: 07/07/18 20:44 Dose: 30 ml Aspirin (Ecotrin) 81 mg PO DAILY [facility] Last Admin: 07/08/18 08:09 Dose: 81 mg Bisacodyl (Dulcolax Supp) 10 mg RECTAL DAILY PRN PRN Reason: SEVERE CONSITIPATION Carvedilol (Coreg) 3.125 mg PO BID [facility] Last Admin: 07/08/18 08:10 Dose: 3.125 mg Chlorhexidine Gluconate (Chlorhexidine 2% Cloth) 3 pack TOPICAL DAILY@0400 [facility] Stop: 07/10/18 03:59 Last Admin: 07/08/18 04:58 Dose: 3 pack Chlorhexidine Gluconate (Chlorhexidine 2% Cloth) 3 pack TOPICAL DAILY@0400 PRN PRN Reason: Extra cloth needed Stop: 07/10/18 03:59 Dextrose (D50w Vial) 50 ml IV.PUSH UNSCH PRN PRN Reason: PER HYPOGLYCEMIA PROTOCOL Glucagon (Glucagon Inj) 1 mg OTHER PRN PRN PRN Reason: for Hypoglycemia Protocol Heparin Sodium (Porcine) (Heparin Inj) 5,000 units SQ Q8HR [facility] Last Admin: 07/08/18 14:30 Dose: 5,000 units Hydralazine HCl (Apresoline Inj) 10 mg IV.PUSH Q1H PRN PRN Reason: Sbp> Or = 170, Dbp> Or = 90 Hydralazine HCl (Apresoline) 50 mg PO Q8H [facility] Last Admin: 07/08/18 08:09 Dose: 50 mg Nicardipine HCl 25 mg/ Sodium (Chloride) 250 mls @ 25 mls/hr IV.CONT TITRATE PRN; Protocol PRN Reason: Per Protocol Insulin Aspart (Novolog Insulin Correctional Sugar Inj) 0 unit SQ ACHS [facility]; Protocol Last Admin: 07/08/18 13:24 Dose: Not Given Isosorbide Dinitrate (Isordil) 30 mg PO Q8H [facility] Last Admin: 07/08/18 08:09 Dose: 30 mg Lactulose (Lactulose Liq) 30 ml PO DAILY PRN PRN Reason: SEVERE CONSITIPATION Last Admin: 07/08/18 05:09 Dose: 30 ml Nifedipine (Procardia Xl) 60 mg PO DAILY [facility] Last Admin: 07/08/18 08:09 Dose: 60 mg Ondansetron HCl (Zofran Inj) 4 mg IV.PUSH Q6H PRN PRN Reason: NAUSEA OR VOMITING Last Admin: 07/08/18 08:46 Dose: 4 mg Pantoprazole Sodium (Protonix) 40 mg PO DAILY [facility] Last Admin: 07/08/18 08:10 Dose: 40 mg Prochlorperazine Edisylate (Compazine Inj) 5 mg IV.PUSH Q6H PRN PRN Reason: brekthrough nausea Last Admin: 07/05/18 18:30 Dose: 5 mg Senna/Docusate Sodium (Ashley-Colace) 1 tab PO BID [facility] Last Admin: 07/08/18 08:09 Dose: 1 tab Sennosides (Senokot) 17.2 mg PO Q12H PRN PRN Reason: Moderate Constipation Last Admin: 07/07/18 18:00 Dose: 17.2 mg Sodium Chloride (Ns Flush) 2 ml IV.FLUSH BID [facility] Last Admin: 07/08/18 08:10 Dose: 2 ml Sodium Chloride (Ns Flush) 2 ml IV.FLUSH PRN PRN PRN Reason: FLUSH AFTER USING IV ACCESS Physical Exam Vital signs: Vital Signs 07/07/18 16:00 07/07/18 17:00 07/07/18 18:00 Temperature 98.4 F Pulse Rate 91 H 97 H 100 H Respiratory Rate 18 17 18 Blood Pressure 141/63 H 156/70 H 116/57 L Pulse Oximetry 97 98 97 07/07/18 19:00 07/07/18 19:10 07/07/18 20:00 Temperature 98.2 F 98.2 F Pulse Rate 98 H 96 H Respiratory Rate 16 18 Blood Pressure 132/60 145/65 H Pulse Oximetry 97 97 97 07/07/18 21:00 07/07/18 22:00 07/07/18 22:12 Temperature 98.2 F 98.2 F Pulse Rate 95 H 96 H Respiratory Rate 14 16 18 Blood Pressure 133/63 128/73 Pulse Oximetry 99 97 07/08/18 00:00 07/08/18 04:00 07/08/18 07:34 Temperature 98 F 98.3 F Pulse Rate 86 86 Respiratory Rate 16 14 Blood Pressure 147/67 H 134/59 L Pulse Oximetry 98 98 97 07/08/18 08:00 07/08/18 09:00 07/08/18 12:00 Temperature 98.0 F 98.0 F 98.3 F Pulse Rate 87 85 93 H Respiratory Rate 14 14 15 Blood Pressure 140/76 115/57 L 146/64 H Pulse Oximetry 97 97 96 Intake & Output 07/07/18 07/08/18 07/08/18 18:59 06:59 18:59 Intake Total 1060 / 1060 240 / 240 Output Total 750 / 750 900 / 900 Balance 310 / 310 -660 / -660 Weight 67.8 kg Intake: IV 100 / 100 Rocephin Inj 1,000 MG In NS Inj 100 / 100 100 ML @ 200 mls/hr IV.SIG Q24H [facility] Rx#:[id number] Oral 960 / 960 240 / 240 Output: Urine 750 / 750 900 / 900 Other: Date of Last Bowel Movement 07/04/18 07/04/18 07/04/18 # Bowel Movements 0 0 - Constitutional no acute distress - Routine HEENT Exam Head: Present: normocephalic Eye: Present: EOMI ENT: Present: mucous membranes moist - Routine Neck Exam Present: full ROM - Routine Respiratory Exam Present: CTA bilaterally - Routine Cardiovascular Exam Present: S1, S2. Absent: murmur, gallop, rubs - Routine Abdominal Exam Present: normoactive bowel sounds, distended - Routine Extremities Exam Present: full ROM, pulses intact, normal capillary refill. Absent: cyanosis, clubbing, edema - Routine Skin Exam Present: intact - Routine Neurological Exam Present: oriented X3 - Detailed Neurological Exam: Coma Scale Eye Opening: Spontaneous Verbal Response: Oriented Motor Response: Obey commands Riddhi Coma Scale Total: 15 - Routine Psychiatric Exam Present: normal affect - Urinary Catheter Management Straight Cath placed during this visit: no Indwelling Urethral Catheter Cath placed during this visit: yes, but has since been removed by the nurse Reason for continuing: Continue criteria not met Insertion date: 07/05/18 Insertion time: 04:00 Removal date: 07/06/18 Removal time: 13:30 Results 07/06/18 04:40 07/06/18 04:40 Cardiac Enzymes 07/07/18 Range/Units 13:04 Troponin I 0.02 (0.02-0.05) ng/mL Intake and Output 07/08/18 07/08/18 07/08/18 06:59 14:59 22:59 Intake Total 240 / 240 Output Total 900 / 900 Balance -660 / -660 Intake: Oral 240 / 240 Output: Urine 900 / 900 Other: Date of Last Bowel Movement 07/04/18 07/04/18 # Bowel Movements 0 Weight 67.8 kg - Imaging and Cardiology Imaging: Impressions Chest X-Ray 07/07/18 00:00 CONCLUSION: Mild compensated cardiomegaly. Assessment and Plan - Assessment (1) UTI (urinary tract infection) Code(s): N39.0 - Urinary tract infection, site not specified Status: Acute (2) Renal insufficiency Code(s): N28.9 - Disorder of kidney and ureter, unspecified Status: Acute (3) Hypertension, uncontrolled Code(s): I10 - Essential (primary) hypertension Status: Acute (4) Elevated troponin I level Code(s): R74.8 - Abnormal levels of other serum enzymes Status: Acute (5) Hypertensive urgency Code(s): I16.0 - Hypertensive urgency Status: Acute (6) Symptomatic bradycardia Code(s): R00.1 - Bradycardia, unspecified Status: Acute - Plan Patient currently in sinus rhythm on monitor without signs of bradycardia. Continue to monitor closely on telemetry. Continue current cardiac treatment plan and adjust as needed. Echo showed preserved left ventricular function. Increase activity as tolerated. Discharge home if she remains stable. Patient will follow up with Dr. Roa , her primary electric milkers installer, after discharge. The patient was seen and evaluated by Dr. Daly who participated in care, management and decision making. - Attending Attestation Patient seen and examined. I reviewed and agree with the evaluation and plan as presented. No recurrent bradycardia. Anticipate discharge soon. F/u with Dr. Roa as outpatient.
[2018-07-09] MEDS: hydrALAZINE 25 MG Tablet PO SCH ×3 (00:38→16:19)
[2018-07-09] MEDS: Acetaminophen 325 MG Tablet PO PRN (01:14)
--- NOTE | 2018-07-09 06:09 | XR ---
EXAM DATE: 07/09/2018 6:03 AM EDT AGE/SEX: 82 years / Female INDICATIONS: Constipation. CLINICAL DATA: This is the patient's subsequent encounter. Patient reports that signs and symptoms h ave been present for 1 week and indicates a pain score of 0/10. MEDICAL/SURGICAL HISTORY: Myocardial infarction. Hypertension. Cardiovascular disease. Cholec ystectomy. Hysterectomy. Coronary artery stent. COMPARISON: No prior exams available for comparison. FINDINGS: 3 supine AP views of the abdomen. Scattered gas and stool in the colon. Scattered gas in nondilated small bowel. Surgical clips in the right upper quadrant of the abdomen. No abnormal abdominal calcifi cation. Degenerative findings of lumbar spine and osteoarthritic findings of the hips. CONCLUSION: Nonspecific bowel gas pattern. Electronically signed by: Pierce Hand MD 07/09/2018 6:08 AM EDT
[2018-07-09] MEDS: Chlorhexidine Gluconate 2% 1 Pack (2 Cloths) TOPICAL SCH (06:27)
[2018-07-09] MEDS: Heparin - SQ 10,000 UNITS/ML Vial SQ SCH ×2 (06:41→13:14)
[2018-07-09 07:33] LABS: Hematocrit 28.7 % (35.0-46.0); Hemoglobin 9.9 gm/dL (11.6-15.3); Mean Corpuscular HGB Conc 34.5 % (32.0-36.0); Mean Corpuscular Hemoglobin 30.1 pg (27.0-34.0); Mean Corpuscular Volume 87.3 fL (80.0-100.0); Platelet Count 205 th/mm3 (150-450); Red Blood Count 3.28 mil/mm3 (4.00-5.30); Red Cell Distribution Width 15.7 % (11.6-17.2); White Blood Count 5.5 th/mm3 (4.0-11.0)
[2018-07-09 07:57] LABS: Calcium 8.2 mg/dL (8.5-10.1); Carbon Dioxide 21.9 meq/L (21.0-32.0); Potassium 4.3 meq/L (3.5-5.1)
[2018-07-09] MEDS: Insulin NovoLOG Aspart Correctional Sugar Inj SQ SCH ×3 (08:17→16:28)
[2018-07-09] MEDS: Senna/Docusate Sodium 8.6/50 MG Tablet PO SCH (08:18)
[2018-07-09 09:11] VITALS: O2SAT 97
--- NOTE | 2018-07-09 09:36 | P.DS ---
Date of admission: 07/04/18 21:05 Primary care physician: UNKNOWN Brief History from admission: 82-year-old female with past medical history of diabetes, hypertension, coronary artery disease with prior's myocardial infarction and stent in 2017, chronic kidney disease stage III, congestive heart failure who presents to [facility] emergency department with bradycardia. She was recently admitted 07/01/18 for HTN and was discharged earlier today. She had presented with blood pressure up to 218/95. It appears that at the time of that admission she was on carvedilol 3.125 twice daily, Norvasc, and clonidine p.o. and losartan. During her hospitalization she was started on captopril, Procardia 60 mg p.o. daily, torsemide 10 mg p.o. twice daily, and clonidine patch. Norvasc and losartan were discontinued. She was also diagnosed with UTI and treated with Cipro. She was discharged home and had been walking around the house and feeling fine. She decided to go out to a restaurant for dinner and became dizzy and collapsed. When [facility] arrived her heart rate was in the 30s. Reportedly it came up to 60s on its own. She had another episode with heart rate in the "30s" while in the emergency department and was given atropine 0.5 mg IV and glucagon 1 mg IV. Rhythm strip demonstrates 10 seconds of non-conducted p-waves. She is normotensive, but did feel lightheaded during bradycardia. Patient states she has felt some "soreness" in her chest that she attributes to her recent coughing, but says it does not feel similar to prior NH or angina. Denies n/v/SOB/diaphoresis. Potassium is within normal limits. Patient update on day of discharge: Patient reports she is feeling much better today. No nausea or vomiting. She had a small bowel movement with enema. She does report chronic constipation at home. DS: Diagnosis - Discharge Diagnosis (1) UTI (urinary tract infection) Status: Acute (2) Renal insufficiency Status: Acute (3) Hypertension, uncontrolled Status: Acute (4) Elevated troponin I level Status: Acute (5) Hypertensive urgency Status: Acute (6) Symptomatic bradycardia Status: Acute DS: Medications - Discharge Medications Prescriptions: isosorbide dinitrate 30 mg PO Q8H #90 tab DS: Summary Hospital Course: 82-year-old female with a diagnosis of hypertension diabetes mellitus, chronic kidney disease stage III, congestive heart failure with preserved ejection fraction, coronary artery disease status post NH and stent placement in 2017. 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 The patient was admitted after presenting to the emergency department with a presyncopal episode. She was found to have high blood pressure and was also bradycardic with a blood pressure in the 30s as per documentation. The patient was followed by cardiology. Initially the beta-faustino was put on hold. This was later restarted per cardiology recommendations and her heart rate normalized. She did have elevated troponin but no changes in EKG. Patient is allergic to statin. Antihypertensives medications were adjusted. The patient also had Klebsiella UTI which was treated with antibiotics. She did experience episodes of constipation and nausea. Patient has history of chronic constipation. She was treated with stool softeners, laxative, and enema. The patient condition improved and she is discharged home in good condition to follow-up outpatient with cardiology and PCP. - Time Spent with Patient Total time spent providing and/or coordinating discharge services: Less than 30 minutes - Quality: VTE Deep Vein Thrombosis/Pulmonary Embolism Present on Admission: No Exam Vital signs: Vital Signs 07/08/18 12:00 07/08/18 16:00 07/08/18 19:13 Temperature 98.3 F 98.1 F Pulse Rate 93 H 86 Respiratory Rate 15 16 Blood Pressure 146/64 H 157/71 H Pulse Oximetry 96 96 95 07/08/18 20:00 07/09/18 00:00 07/09/18 04:00 Temperature 98.6 F 98.3 F 98.1 F Pulse Rate 93 H 85 84 Respiratory Rate 22 21 17 Blood Pressure 163/74 H 134/63 145/63 H Pulse Oximetry 95 98 95 07/09/18 08:00 07/09/18 08:03 07/09/18 09:00 Temperature 99.3 F Pulse Rate 89 96 H Respiratory Rate 20 25 H Blood Pressure 124/58 L 122/57 L Pulse Oximetry 93 L 92 L 97 07/09/18 09:01 Temperature Pulse Rate 92 H Respiratory Rate 23 Blood Pressure 122/57 L Pulse Oximetry 97 Intake & Output 07/08/18 07/09/18 07/09/18 18:59 06:59 18:59 Intake Total 480 / 480 300 / 300 Output Total 700 / 700 800 / 800 Balance -220 / -220 -500 / -500 Weight 67.2 kg Intake: Oral 480 / 480 300 / 300 Output: Urine 700 / 700 800 / 800 Other: Date of Last Bowel Movement 07/08/18 07/04/18 07/04/18 # Bowel Movements 1 Narrative: GENERAL: This is a well-nourished, well-developed patient, in no apparent distress. CARDIOVASCULAR: Normal rate and regular rhythm without murmurs, gallops, or rubs. RESPIRATORY: Good respiratory efforts. Breath sounds equal and clear to auscultation bilaterally. GASTROINTESTINAL: Abdomen soft, non-tender, non-distended. Normal active bowel sounds MUSCULOSKELETAL: Extremities without cyanosis, or edema. NEURO: Alert & Oriented x4 to person, place, time, situation. Moves all ext x4 PSYCH: Appropriate mood and affect. Results Procedures completed during hospitalization: None Labs on day of discharge: Labs from last 24 hours 07/09/18 07/09/18 07/09/18 08:14 06:03 06:03 WBC 5.5 RBC 3.28 L Hgb 9.9 L Hct 28.7 L MCV 87.3 MCH 30.1 MCHC 34.5 RDW 15.7 Plt Count 205 MPV 8.0 Sodium 140 Potassium 4.3 Chloride 106 Carbon Dioxide 21.9 Anion Gap 12 BUN 21 H Creatinine 1.49 H Estimated GFR 34 L POC Glucose 139 H Random Glucose 129 H Calcium 8.2 L 07/08/18 07/08/18 07/08/18 20:42 17:29 13:20 WBC RBC Hgb Hct MCV MCH MCHC RDW Plt Count MPV Sodium Potassium Chloride Carbon Dioxide Anion Gap BUN Creatinine Estimated GFR POC Glucose 229 H 153 H 149 H Random Glucose Calcium - Impressions ITS Impressions Chest X-Ray 07/07/18 00:00 CONCLUSION: Mild compensated cardiomegaly. Abdomen X-Ray 07/09/18 00:00 CONCLUSION: Nonspecific bowel gas pattern. Discharge Plan - Discharge Disposition Patient Disposition: 01 Discharge Home - Discharge Condition Condition: Good - Discharge Order Discharge Orders: Discharge Order (Routine); Ordered 07/09/18 Ordered By: Randall Diehl - Physicians Team Primary Care Provider: UNKNOWN, Attending Provider: Randall Diehl Other Providers: Chano Roa MD ; [employer] ; [employer]
--- NOTE | 2018-07-09 09:40 | P.PNCA ---
Subjective Interval history: Patient denies any chest pain, pressure, palpitations, dizziness, edema or shortness of breath. Patient does still complain of constipation. Medications and Allergies Allergies Allergy/AdvReac Type Severity Reaction Status Date / Time simvastatin Allergy Severe ARMS SWELL Verified 07/03/18 14:58 Home Medications Medication Instructions Recorded Confirmed Type aspirin [Aspir-81] 81 mg PO DAILY 07/01/18 07/01/18 History buspirone 30 mg PO ONCE 07/01/18 07/01/18 History carvedilol [Coreg] 3.125 mg PO BID 07/01/18 07/01/18 History metformin 750 mg PO BID 07/01/18 07/01/18 History Active Medications: Active Medications Acetaminophen (Tylenol) 650 mg PO Q4H PRN PRN Reason: fever > 100.4/pain 1-10 Last Admin: 07/09/18 01:14 Dose: 650 mg Al Hydroxide/Mg Hydroxide (Milk Of Vashti Mock) 30 ml PO Q12H PRN PRN Reason: Mild Constipation Last Admin: 07/08/18 20:39 Dose: 30 ml Aspirin (Ecotrin) 81 mg PO DAILY [facility] Last Admin: 07/09/18 08:18 Dose: 81 mg Bisacodyl (Dulcolax Supp) 10 mg RECTAL DAILY PRN PRN Reason: SEVERE CONSITIPATION Carvedilol (Coreg) 3.125 mg PO BID [facility] Last Admin: 07/09/18 08:18 Dose: 3.125 mg Chlorhexidine Gluconate (Chlorhexidine 2% Cloth) 3 pack TOPICAL DAILY@0400 [facility] Stop: 07/10/18 03:59 Last Admin: 07/09/18 06:27 Dose: 3 pack Chlorhexidine Gluconate (Chlorhexidine 2% Cloth) 3 pack TOPICAL DAILY@0400 PRN PRN Reason: Extra cloth needed Stop: 07/10/18 03:59 Dextrose (D50w Vial) 50 ml IV.PUSH UNSCH PRN PRN Reason: PER HYPOGLYCEMIA PROTOCOL Glucagon (Glucagon Inj) 1 mg OTHER PRN PRN PRN Reason: for Hypoglycemia Protocol Heparin Sodium (Porcine) (Heparin Inj) 5,000 units SQ Q8HR [facility] Last Admin: 07/09/18 06:41 Dose: 5,000 units Hydralazine HCl (Apresoline Inj) 10 mg IV.PUSH Q1H PRN PRN Reason: Sbp> Or = 170, Dbp> Or = 90 Hydralazine HCl (Apresoline) 50 mg PO Q8H [facility] Last Admin: 07/09/18 08:18 Dose: 50 mg Nicardipine HCl 25 mg/ Sodium (Chloride) 250 mls @ 25 mls/hr IV.CONT TITRATE PRN; Protocol PRN Reason: Per Protocol Insulin Aspart (Novolog Insulin Correctional Sugar Inj) 0 unit SQ ACHS [facility]; Protocol Last Admin: 07/09/18 08:17 Dose: Not Given Isosorbide Dinitrate (Isordil) 30 mg PO Q8H [facility] Last Admin: 07/09/18 08:18 Dose: 30 mg Lactulose (Lactulose Liq) 30 ml PO DAILY PRN PRN Reason: SEVERE CONSITIPATION Last Admin: 07/08/18 20:39 Dose: 30 ml Nifedipine (Procardia Xl) 60 mg PO DAILY [facility] Last Admin: 07/09/18 08:18 Dose: 60 mg Ondansetron HCl (Zofran Inj) 4 mg IV.PUSH Q6H PRN PRN Reason: NAUSEA OR VOMITING Last Admin: 07/08/18 08:46 Dose: 4 mg Pantoprazole Sodium (Protonix) 40 mg PO DAILY [facility] Last Admin: 07/09/18 08:18 Dose: 40 mg Prochlorperazine Edisylate (Compazine Inj) 5 mg IV.PUSH Q6H PRN PRN Reason: brekthrough nausea Last Admin: 07/05/18 18:30 Dose: 5 mg Senna/Docusate Sodium (Ashley-Colace) 1 tab PO BID [facility] Last Admin: 07/09/18 08:18 Dose: 1 tab Sennosides (Senokot) 17.2 mg PO Q12H PRN PRN Reason: Moderate Constipation Last Admin: 07/08/18 20:39 Dose: 17.2 mg Sodium Chloride (Ns Flush) 2 ml IV.FLUSH BID [facility] Last Admin: 07/09/18 08:18 Dose: 2 ml Sodium Chloride (Ns Flush) 2 ml IV.FLUSH PRN PRN PRN Reason: FLUSH AFTER USING IV ACCESS Physical Exam Vital signs: Vital Signs 07/08/18 12:00 07/08/18 16:00 07/08/18 19:13 Temperature 98.3 F 98.1 F Pulse Rate 93 H 86 Respiratory Rate 15 16 Blood Pressure 146/64 H 157/71 H Pulse Oximetry 96 96 95 07/08/18 20:00 07/09/18 00:00 07/09/18 04:00 Temperature 98.6 F 98.3 F 98.1 F Pulse Rate 93 H 85 84 Respiratory Rate 22 21 17 Blood Pressure 163/74 H 134/63 145/63 H Pulse Oximetry 95 98 95 07/09/18 08:00 07/09/18 08:03 07/09/18 09:00 Temperature 99.3 F Pulse Rate 89 96 H Respiratory Rate 20 25 H Blood Pressure 124/58 L 122/57 L Pulse Oximetry 93 L 92 L 97 07/09/18 09:01 Temperature Pulse Rate 92 H Respiratory Rate 23 Blood Pressure 122/57 L Pulse Oximetry 97 Intake & Output 07/08/18 07/09/18 07/09/18 18:59 06:59 18:59 Intake Total 480 / 480 300 / 300 Output Total 700 / 700 800 / 800 Balance -220 / -220 -500 / -500 Weight 67.2 kg Intake: Oral 480 / 480 300 / 300 Output: Urine 700 / 700 800 / 800 Other: Date of Last Bowel Movement 07/08/18 07/04/18 07/04/18 # Bowel Movements 1 - Constitutional no acute distress - Routine HEENT Exam Head: Present: normocephalic Eye: Present: PERRL ENT: Present: mucous membranes moist - Routine Neck Exam Present: full ROM - Routine Respiratory Exam Present: CTA bilaterally - Routine Cardiovascular Exam Present: S1, S2. Absent: murmur, gallop, rubs - Routine Abdominal Exam Present: normoactive bowel sounds, distended - Routine Extremities Exam Present: full ROM, pulses intact, normal capillary refill. Absent: cyanosis, clubbing, edema - Routine Skin Exam Present: intact - Routine Neurological Exam Present: oriented X3 - Detailed Neurological Exam: Coma Scale Eye Opening: Spontaneous Verbal Response: Oriented Motor Response: Obey commands Riddhi Coma Scale Total: 15 - Routine Psychiatric Exam Present: normal affect - Urinary Catheter Management Straight Cath placed during this visit: no Indwelling Urethral Catheter Cath placed during this visit: yes, but has since been removed by the nurse Reason for continuing: Continue criteria not met Insertion date: 07/05/18 Insertion time: 04:00 Removal date: 07/06/18 Removal time: 13:30 Results 07/09/18 06:03 07/09/18 06:03 Cardiac Enzymes 07/07/18 Range/Units 13:04 Troponin I 0.02 (0.02-0.05) ng/mL CBC 07/09/18 Range/Units 06:03 WBC 5.5 (4.0-11.0) th/mm3 RBC 3.28 L (4.00-5.30) mil/mm3 Hgb 9.9 L (11.6-15.3) gm/dL Hct 28.7 L (35.0-46.0) % Plt Count 205 (150-450) th/mm3 Comprehensive Metabolic Panel 07/09/18 Range/Units 06:03 Sodium 140 (136-145) meq/L Potassium 4.3 (3.5-5.1) meq/L Chloride 106 (98-107) meq/L Carbon Dioxide 21.9 (21.0-32.0) meq/L BUN 21 H (7-18) mg/dL Creatinine 1.49 H (0.50-1.00) mg/dL Calcium 8.2 L (8.5-10.1) mg/dL Intake and Output 07/08/18 07/09/18 07/09/18 22:59 06:59 14:59 Intake Total 480 / 480 300 / 300 Output Total 700 / 700 800 / 800 Balance -220 / -220 -500 / -500 Intake: Oral 480 / 480 300 / 300 Output: Urine 700 / 700 800 / 800 Other: Date of Last Bowel Movement 07/04/18 07/04/18 07/04/18 # Bowel Movements 1 Weight 67.2 kg - Imaging and Cardiology Imaging: Impressions Chest X-Ray 07/07/18 00:00 CONCLUSION: Mild compensated cardiomegaly. Abdomen X-Ray 07/09/18 00:00 CONCLUSION: Nonspecific bowel gas pattern. Assessment and Plan - Assessment (1) UTI (urinary tract infection) Code(s): N39.0 - Urinary tract infection, site not specified Status: Acute (2) Renal insufficiency Code(s): N28.9 - Disorder of kidney and ureter, unspecified Status: Acute (3) Hypertension, uncontrolled Code(s): I10 - Essential (primary) hypertension Status: Acute (4) Elevated troponin I level Code(s): R74.8 - Abnormal levels of other serum enzymes Status: Acute (5) Hypertensive urgency Code(s): I16.0 - Hypertensive urgency Status: Acute (6) Symptomatic bradycardia Code(s): R00.1 - Bradycardia, unspecified Status: Acute - Plan Patient remains in sinus rhythm with no recurrent episodes of severe bradycardia. Continue current cardiac treatment plan. Echo showed preserved left ventricular function. Increase activity as tolerated. Patient cleared for discharge from cardiac standpoint. Patient will follow up with Dr. Roa, her primary oil field tester, after discharge. The patient was seen and evaluated by Dr. Daly who participated in care, management and decision making. - Attending Attestation Patient seen and examined. I reviewed and agree with the evaluation and plan as presented. Continue current program. OK to discharge from cardiac standpoint. F/ u w Dr. Roa.
[2018-07-09 13:13] VITALS: RESP 21
[2018-07-09 16:54] VITALS: BP 171/75; PULSE 91; TEMP 98.8
== END 2018-07-09 17:00 | disposition home or self-care (01) ==
LOC: NEPC 19:22 → NEDA 21:05 → HIMC 07-05 00:25
PROVIDERS: ADMIT Family Medicine; ATTEND Family Medicine